=== PATIENT | male | born 1950 | race Caucasian/White ===

== ENCOUNTER 2022-01-10 15:12 | Emergency (ER) | payer MEDICARE, SELFPAY ==
[2022-01-10] VITALS (22 sets, daily range): BP systolic 59–120; BP diastolic 25–84; PULSE 89–154; RESP 18–98; TEMP 38.2–38.3; O2SAT 93–100; BMI 49.4
--- NOTE | 2022-01-10 16:28 | CRLHL7_ITS ---
For Patients: As a result of the Century Cures Act, medical imaging exams and procedure reports are released immediately into your electronic medical record. You may view this report before your referring provider. If you have questions, please contact your health care provider. INDICATION: Tachycardia. TECHNIQUE: Chest 1 views. COMPARISON: Chest x-ray from 10/01/2013. FINDINGS: Lungs: Clear lungs. No consolidation. Pleura: No pleural effusion or pneumothorax. Heart and Mediastinum: The cardiomediastinal silhouette is enlarged. The vessels are unremarkable. Bones: Unremarkable. IMPRESSION: No acute cardiopulmonary disease. Dictated by Burke Darling MD @ 01/10/2022 5:52:52 PM (Electronically Signed)
[2022-01-10 16:37] LABS: Lactate* 2.3 mmol/L (0.5-1.9)
[2022-01-10] MEDS: 0.9 % SODIUM CHLORIDE 1000 ml 1,000 ML IV ×2 (16:37→17:35)
[2022-01-10 16:44] LABS: Basophils Percent Auto 0.2 % (0.0-3.0); Eosinophils Percent Auto 0.5 % (0.0-7.0); Hematocrit 33.8 % (37.0-53.0); Hemoglobin* 11.5 gm/dL (13.5-17.5); Immature Granulocytes Abs Auto 0.02 K/uL (0.00-0.30); Mean Corpuscular HGB Conc 34 gm/dL (32-36); Mean Corpuscular Hemoglobin 29 pg (26-34); Mean Corpuscular Volume 86 fL (80-100); Monocytes Percent Auto 4.9 % (0.0-11.0); Neutrophils Percent Auto 88.2 % (42.0-72.0); Platelet Count* 162 K/uL (140-440); RDW Coefficient of Variation % 13.8 % (11.5-15.5); Red Blood Count 3.95 m/uL (4.30-5.90); White Blood Count* 11.01 K/uL (4.50-11.00)
--- NOTE | 2022-01-10 16:45 | ED.GENADULT ---
HPI - General Adult General Chief complaint: Fever Stated complaint: Arm Pain Trouble Moving Short of Breath Time Seen by Provider: 01/10/22 16:28 History of Present Illness HPI narrative: Pt is a 72 year old gentleman with a complex history who appears to live alone. 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 He describes a general sense of weakness and malaise. Its not clear that the pt has been taking his medications. Pt is unable to answer any further questions at this time and presents to the ED tachycardic and febrile but breathing room air and saturating at 96 percent. Pt describes no pain, rash, cough or abd pain. Unclear how long he has been feeling poorly but no history of falls. Related Data Home Medications Medication Instructions Recorded Confirmed amiloride 5 mg-hydrochlorothiazide tab 01/10/22 50 mg tablet atorvastatin 40 mg tablet mg 01/10/22 citalopram 10 mg tablet mg 01/10/22 lisinopril 10 mg tablet mg 01/10/22 lisinopril 5 mg tablet mg 01/10/22 metformin 1,000 mg tablet mg 01/10/22 metoprolol succinate 50 mg mg PO 01/10/22 tablet,extended release 24 hr peg 3350-electrolytes 236 ml 01/10/22 gram-22.74 gram-6.74 gram-5.86 gram solution (GaviLyte-G) tamsulosin 0.4 mg capsule mg PO 01/10/22 Allergies Allergy/AdvReac Type Severity Reaction Status Date / Time No Known Drug Allergies Allergy Verified 01/10/22 16:18 Review of Systems Status of ROS: Reports: unobtainable due to mental status [facility] Social History Smoking Status: Former smoker What tobacco products do you use: cigarettes Years smoked: 30 Smoking quit date/years: <= 15 years ago Do you use any of these nicotine containing products: None Second hand tobacco smoke exposure: No How often do you have a drink containing alcohol: 4 or more times a week How many standard drinks containing alcohol do you have on a typical day: 1 or 2 How often do you have six or more drinks on one occasion: Never AUDIT-C Alcohol total score: 4 Non-prescribed substance use: denies use service: No Exam Narrative: Exam Narrative: EXAM GENERAL: Patient appears morbidly obese and confused. EYES: No scleral icterus. ENT: Tympanic membranes and oropharynx normal. THYROID: no thyroid nodules or thyromegaly. LYMPH: No supraclavicular or cervical lymphadenopathy. SKIN: Visible skin seen during exam normal or with benign process only. EXT: No dependent lower extremity pedal edema. HEART: Regular rate and rhythm with no murmurs, rubs, or gallops. LUNGS: Clear to auscultation bilaterally with no crackles or wheezes. ABD: Obese soft with positive bowel sounds. PSYCH: Good eye contact, speech is not pressured. Neurological: Pt confused but shows no focal defects on exam Const: Vital Signs, click to edit/add: Vital Signs - 24 hr 01/10/22 16:19 01/10/22 16:38 01/10/22 16:19 Temperature 100.9 F H 100.9 F H Pulse Rate [Apical ] 144 H Pulse Rate [Right Pulse Oximeter] 154 H 154 H Respiratory Rate 26 H 36 H 36 H Blood Pressure [Le ft Arm] 100/83 Blood Pressure [Ri ght Upper Arm] 119/68 78/63 L Pulse Oximetry 96 96 96 Oxygen Delivery Me thod Room Air Room Air Room Air Oxygen Flow Rate 01/10/22 16:29 01/10/22 16:49 01/10/22 16:54 Temperature Pulse Rate [Apical ] Pulse Rate [Right Pulse Oximeter] 147 H 142 H 142 H Respiratory Rate Blood Pressure [Le ft Arm] Blood Pressure [Ri ght Upper Arm] 100/83 79/64 L 92/73 Pulse Oximetry Oxygen Delivery Me thod Oxygen Flow Rate 01/10/22 16:45 01/10/22 18:49 01/10/22 17:14 Temperature 100.7 F H Pulse Rate [Apical ] Pulse Rate [Right Pulse Oximeter] 142 H Respiratory Rate 36 H 36 H Blood Pressure [Le ft Arm] Blood Pressure [Ri ght Upper Arm] 110/61 Pulse Oximetry 100 Oxygen Delivery Me thod Nasal Cannula Nasal Cannula Oxygen Flow Rate 2 Course Course Hospital Course: Pt seen and EKG shows RBBB with tachycardia. NS bolus begun. CBC, Lactate, Amylase, UA, CMP, ETOH Chest X ray ordered Tylenol 1000 mg given. I am concerned about sepsis. Once blood cultures collected, Zosyn and Vancomycin ordered. Reevaluation(s) Reevaluation #1: Pt has had a complex course. Pt arrives tachycardic and febrile as well as semiobtunded. Labs including cultures collected. Sepsis suspected. Aggressive hydration begun. Vanc and Zosyn given. 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 BP borderline. Pt on 2 liters Oxygen. Cardiology recommended Adenosine followed by Cardizem if not improved Pt did not have any change with 6, 12, 12 of Adenosine. Cardizem also not helpful. Pt became hypotensive. Cardiology recommended cardioversion in this case. Pt shocked after versed and fentanyl at 150 synchronized with no effect. Shortly thereafter shocked same with conversion to sinus rhythm. BP improved. Delay on helicopter. Pt transferred to [facility]. Labs reviewed. Chest xray portable pending. Time: 19:16 Consultations Consultation #1: Cardiology consult with EKG overread requested. Cardiology agreed difficult to tell what rhythm is. Likely AV Node Re-entrant tachycardia. Recommended Adenosine. 6, 12, 12 unsuccessful of any meaningful change in rate or rhythm. Cards then recommended Cardizem drip which is now started. IV hydration and broad spectrum antibiotics running. Time: 17:08 Vital Signs Vital signs: Initial Vital Signs Temperature 100.9 F H 01/10/22 16:19 Temperature Source Temporal Artery Scan 01/10/22 16:19 Pulse Rate 154 H 01/10/22 16:19 Respiratory Rate 26 H 01/10/22 16:19 Respiratory Effort Short of Breath 01/10/22 16:19 Respiratory Depth Deep 01/10/22 16:19 Blood Pressure 119/68 01/10/22 16:19 Blood Pressure Mean 85 01/10/22 16:19 Blood Pressure Position Sitting 01/10/22 16:19 Pulse Oximetry 96 01/10/22 16:19 Oxygen Delivery Method 01/10/22 16:19 Vital Signs Temperature 100.9 F H 01/10/22 16:19 Pulse Rate 154 H 01/10/22 16:19 Respiratory Rate 26 H 01/10/22 16:19 Blood Pressure 119/68 01/10/22 16:19 Pulse Oximetry 96 01/10/22 16:19 Oxygen Delivery Method 01/10/22 16:19 Temperature 100.7 F H 01/10/22 18:49 Pulse Rate 142 H 01/10/22 17:14 Respiratory Rate 36 H 01/10/22 17:14 Blood Pressure 110/61 01/10/22 17:14 Pulse Oximetry 100 01/10/22 17:14 Oxygen Delivery Method 01/10/22 17:14 Oxygen Flow Rate 2 01/10/22 16:45 Medical Decision Making MDM Narrative Medical decision making narrative: Pt has had a complex course. Pt arrives tachycardic and febrile as well as semiobtunded. Labs including cultures collected. Sepsis suspected. Aggressive hydration begun. Vanc and Zosyn given. 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 BP borderline. Pt on 2 liters Oxygen. Cardiology recommended Adenosine followed by Cardizem if not improved Pt did not have any change with 6, 12, 12 of Adenosine. Cardizem also not helpful. Pt became hypotensive. Cardiology recommended cardioversion in this case. Pt shocked after versed and fentanyl at 150 synchronized with no effect. Shortly thereafter shocked same with conversion to sinus rhythm. BP improved. Delay on helicopter. Pt transferred to [facility]. Labs reviewed. Chest xray portable pending. Differential Diagnosis Differential Diagnosis: Sepsis, Primary Arythmia, [place], Pneumonia, UTI, PE Lab Data Labs: Lab Results 01/10/22 01/10/22 01/10/22 Range/Units 16:30 16:30 16:30 WBC 11.01 H (4.50-11.00) K/uL RBC 3.95 L (4.30-5.90) m/uL Hgb 11.5 L (13.5-17.5) gm/dL Hct 33.8 L (37.0-53.0) % MCV 86 (80-100) fL MCH 29 (26-34) pg MCHC 34 (32-36) gm/dL RDW Coeff of Daniel 13.8 (11.5-15.5) % Plt Count 162 (140-440) K/uL Neut % (Auto) 88.2 H (42.0-72.0) % Lymph % (Auto) 6.0 L (20-44) % [place] % (Auto) 4.9 (0.0-11.0) % Eos % (Auto) 0.5 (0.0-7.0) % Baso % (Auto) 0.2 (0.0-3.0) % Neut # (Auto) 9.70 H (1.7-7.0) K/uL Lymph # (Auto) 0.70 L (0.90-2.90) K/uL [place] # (Auto) 0.50 (0.00-0.90) K/UL Eos # (Auto) 0.10 (0.00-0.50) K/uL Baso # (Auto) 0.00 (0.00-0.30) K/uL Abs Immat Gran (auto) 0.02 (0.00-0.30) K/uL D-Dimer Quant (PE/DVT) 1.31 H (0.00-0.50) ug/ml Sodium 137 (135-149) mmol/L Potassium 3.4 L (3.6-5.1) mmol/L Chloride 100 (96-114) mmol/L Carbon Dioxide 27 (20-32) mmol/L BUN 23 (7-30) mg/dL Creatinine 0.9 (0.5-1.5) mg/dL Estimated Creat Clear 64.60 Estimated GFR 91 ml/min Glucose 202 H (60-115) mg/dL Lactate (0.5-1.9) mmol/L Calcium 9.5 (8.4-10.6) mg/dL Magnesium 1.4 L (1.5-2.6) mg/dL Total Bilirubin 0.5 (0.1-1.5) mg/dL AST 24 (12-35) U/L ALT 17 (4-50) U/L Alkaline Phosphatase 95 (40-150) U/L Troponin I 0.03 (0.01-0.04) ng/mL Total Protein 7.3 (6.0-8.3) g/dL Albumin 4.4 (3.3-5.0) g/dL Amylase 82 (18-89) U/L Urine Color (Yellow) Urine Appearance (Clear) Urine pH (5.0-8.5) Ur Specific [place] (1.000-1.030) Urine Protein (Negative) Urine Glucose (UA) (Negative) Urine Ketones (Negative) Urine Blood (Negative) Urine Nitrite (Negative) Urine Bilirubin (Negative) Urine Urobilinogen (0.2-1.0) Ur Leukocyte Esterase (Negative) Urine RBC (0-2) Urine WBC (0-5) Ur Squamous Epith Cells (None-Few) Urine Bacteria (None) Fine Granular Casts (None) SARS-CoV-2 (PCR) (Negative) Influenza Type A (PCR) (Negative) Influenza Type B (PCR) (Negative) RSV (PCR) (Negative) 01/10/22 01/10/22 01/10/22 Range/Units 16:30 17:14 18:30 WBC (4.50-11.00) K/uL RBC (4.30-5.90) m/uL Hgb (13.5-17.5) gm/dL Hct (37.0-53.0) % MCV (80-100) fL MCH (26-34) pg MCHC (32-36) gm/dL RDW Coeff of Daniel (11.5-15.5) % Plt Count (140-440) K/uL Neut % (Auto) (42.0-72.0) % Lymph % (Auto) (20-44) % [place] % (Auto) (0.0-11.0) % Eos % (Auto) (0.0-7.0) % Baso % (Auto) (0.0-3.0) % Neut # (Auto) (1.7-7.0) K/uL Lymph # (Auto) (0.90-2.90) K/uL [place] # (Auto) (0.00-0.90) K/UL Eos # (Auto) (0.00-0.50) K/uL Baso # (Auto) (0.00-0.30) K/uL Abs Immat Gran (auto) (0.00-0.30) K/uL D-Dimer Quant (PE/DVT) (0.00-0.50) ug/ml Sodium (135-149) mmol/L Potassium (3.6-5.1) mmol/L Chloride (96-114) mmol/L Carbon Dioxide (20-32) mmol/L BUN (7-30) mg/dL Creatinine (0.5-1.5) mg/dL Estimated Creat Clear Estimated GFR ml/min Glucose (60-115) mg/dL Lactate 2.3 H (0.5-1.9) mmol/L Calcium (8.4-10.6) mg/dL Magnesium (1.5-2.6) mg/dL Total Bilirubin (0.1-1.5) mg/dL AST (12-35) U/L ALT (4-50) U/L Alkaline Phosphatase (40-150) U/L Troponin I (0.01-0.04) ng/mL Total Protein (6.0-8.3) g/dL Albumin (3.3-5.0) g/dL Amylase (18-89) U/L Urine Color Yellow (Yellow) Urine Appearance Clear (Clear) Urine pH 7.5 (5.0-8.5) Ur Specific [place] 1.020 (1.000-1.030) Urine Protein 2+ A (Negative) Urine Glucose (UA) Negative (Negative) Urine Ketones Negative (Negative) Urine Blood 2+ A (Negative) Urine Nitrite Positive A (Negative) Urine Bilirubin Negative (Negative) Urine Urobilinogen 0.2 (0.2-1.0) Ur Leukocyte Esterase 2+ A (Negative) Urine RBC 2-5 A (0-2) Urine WBC 25-50 A (0-5) Ur Squamous Epith Cells Few (None-Few) Urine Bacteria None (None) Fine Granular Casts Few A (None) SARS-CoV-2 (PCR) Negative SARS-CoV-2 (Negative) Influenza Type A (PCR) Negative PCR FLU A (Negative) Influenza Type B (PCR) Negative PCR FLU B (Negative) RSV (PCR) Negative PCR RSV (Negative) Critical Care Time Critical Care Time Critical Care Time: Yes Attestation: The patient required my highest level preparedness to intervene emergently and I personally spent this critical care time directly and personally managing the patient. This critical care time included: Obtaining a history; Examining the patient; Pulse oximetry; Ordering and reviewing of studies; Arranging urgent treatment with development of a management plan; Evaluation of patients response to treatment; Frequent reassessment discussions with other providers. This critical care time was performed to assess and manage the high probability of imminent life-threatening deterioration that could result in multiorgan failure. It was exclusive of separate billable procedures and treating other patients and teaching time. Total Critical Care Time in Minutes: 90 Discharge Plan Discharge Clinical Impression: Sepsis Patient Disposition: Xfer Other Discharge Location: [facility] Hospital Condition: Improved Activity Level: Other Discharge Diet: Other Prescriptions: No Action atorvastatin 40 mg tablet Label Comments: TAKE ONE TABLET BY MOUTH ONE TIME DAILY amiloride-hydrochlorothiazide 5-50 mg tablet Label Comments: TAKE ONE TABLET BY MOUTH ONE TIME DAILY metoprolol succinate 50 mg tablet extended release 24 hr PO Label Comments: TAKE ONE TABLET BY MOUTH ONE TIME DAILY citalopram 10 mg tablet Label Comments: TAKE ONE TABLET BY MOUTH EVERY DAY IN THE MORNING. tamsulosin 0.4 mg capsule PO Label Comments: TAKE ONE CAPSULE BY MOUTH DAILY AFTER A MEAL metformin 1,000 mg tablet Label Comments: TAKE ONE TABLET BY MOUTH TWICE DAILY WITH MEALS lisinopril 10 mg tablet Label Comments: TAKE ONE TABLET BY MOUTH ONE TIME DAILY lisinopril 5 mg tablet Label Comments: TAKE ONE TABLET BY MOUTH ONE TIME DAILY peg 3350-electrolytes [GaviLyte-G] 236-22.74-6.74 -5.86 gram recon soln Label Comments: Drink 3 liters the day before colonoscopy and drink 1 liter 6 hours before colonoscopy Follow Up/Referrals: Jose Linares MD [Primary Care Provider] - Stand Alone Forms: [facility] Info Instructions
[2022-01-10] MEDS: ADENOSINE 6 MG/2ML INJ 12 MG IVP ×2 (16:48→17:50)
[2022-01-10 16:50] LABS: Slide Review Reflex No
[2022-01-10 16:58] LABS: Albumin* 4.4 g/dL (3.3-5.0); Chloride* 100 mmol/L (96-114); Potassium* 3.4 mmol/L (3.6-5.1); Sodium* 137 mmol/L (135-149)
[2022-01-10 17:00] LABS: Amylase* 82 U/L (18-89)
[2022-01-10 17:01] LABS: Alanine Aminotransferase* 17 U/L (4-50); Alkaline Phosphatase* 95 U/L (40-150); Aspartate Amino Transferase* 24 U/L (12-35); Bilirubin Total* 0.5 mg/dL (0.1-1.5); Blood Urea Nitrogen* 23 mg/dL (7-30); Carbon Dioxide* 27 mmol/L (20-32); Creatinine* 0.9 mg/dL (0.5-1.5); Estimated Glomerular Filt Rate 91 ml/min; Glucose* 202 mg/dL (60-115); Total Protein* 7.3 g/dL (6.0-8.3)
[2022-01-10 17:02] LABS: Calcium* 9.5 mg/dL (8.4-10.6)
[2022-01-10 17:04] LABS: D Dimer Quantitative* 1.31 ug/ml (0.00-0.50)
[2022-01-10] MEDS: ACETAMINOPHEN 500 MG TABLET 1000 MG PO (17:05)
[2022-01-10] MEDS: PIPERACILLIN/TAZOBACTAM 3.375 GM in 0.9 % SODIUM CHLORIDE Mini-bag 100 ML IVPB (17:11)
[2022-01-10 17:12] LABS: Troponin I* 0.03 ng/mL (0.01-0.04)
--- NOTE | 2022-01-10 17:22 | ED.NURSE ---
DR ONEAL AWARE OF VS AND CRITICAL CONDITION. -POSSIBLE SEPSIS. DID HANG ZOSYN AND DR AWARE THAT 2ND SET OF BLOOD CULTURES NOT OBTAINED PER LAB. TO GO AHEAD AND START THE ANTIBIOTICS. 02 AT 2 L N/C. RR 36. Initialized on 01/10/22 17:16 - END OF NOTE
--- NOTE | 2022-01-10 17:26 | ED.NURSE ---
[facility] cardiology paged x2. EKG faxed to
--- NOTE | 2022-01-10 17:28 | ED.NURSE ---
dr gibbs was in and 12 lead was repeated. bp has improved. 114/60. hr 141.
[2022-01-10] MEDS: ADENOSINE 6 MG/2ML INJ IVP (17:46)
[2022-01-10] MEDS: dilTIAZem HCL 125 MG in 0.9 % SODIUM CHLORIDE 100 ml 100 ML 10 MG IVPB (17:54)
[2022-01-10 18:01] LABS: PCR FLU A Negative PCR FLU A (Negative); PCR FLU B Negative PCR FLU B (Negative); PCR RSV Negative PCR RSV (Negative)
[2022-01-10] MEDS: ONDANSETRON 2 MG/ML inj 4 MG IVP (18:04)
[2022-01-10 18:10] LABS: SARS PCR* Negative SARS-CoV-2 (Negative)
[2022-01-10] MEDS: MIDAZOLAM HCL 1 MG/ML inj 4 MG IVP (18:14)
[2022-01-10] MEDS: fentaNYL 100 MCG/2 ML inj IVP (18:15)
[2022-01-10 18:28] LABS: Magnesium* 1.4 mg/dL (1.5-2.6)
--- NOTE | 2022-01-10 18:30 | ED.NURSE ---
synchonized cardioversion at 1816 150 j -not much change. did repeat at 1818 and converted to 98-sinus tachy. diltiazem drip was restarted at 15 mg/hr. will be transferred at [facility] via [facility]. did not remember the shock. is breathing much easier. does have oxy mask on. rt lachelle had been constantly at bs. had tried c pap and bi pap. was not able to tolerate. adenosine did not sustain the lower heart rate.
--- NOTE | 2022-01-10 18:43 | ED.NURSE ---
is on 02 per oxi mask at 8 l/min. has #18 torres draining straw colored cloudy urine. did send ua to lab. is talkig better and son at bs. is alert and oriented. will go to [facility] via [facility].
[2022-01-10] MEDS: 0.9 % SODIUM CHLORIDE 1000 ml 1,000 ML 100 ML IV (18:47)
[2022-01-10 18:53] LABS: Appearance Urine Clear (Clear); Bilirubin Urine Negative (Negative); Blood Urine 2+ (Negative); Color Urine Yellow (Yellow); Glucose Urine Negative (Negative); Ketones Urine Negative (Negative); Leukocyte Esterase Urine 2+ (Negative); Nitrite Urine Positive (Negative); Protein Urine 2+ (Negative); Urobilinogen Urine 0.2 (0.2-1.0); pH Urine 7.5 (5.0-8.5)
[2022-01-10 19:08] LABS: Fine Granular Casts Urine Few; Squamous Epithelial Cell Urine Few (None-Few); WBC Urine 25-50 (0-5)
--- NOTE | 2022-01-10 19:16 | RESP.RT ---
With pt, unstable, PT Hr in upper 130's Respiratory distress Pt given adenosine and cardioverted x2. Pt HR converted into 90's with corresponding Respiratory improvement. RR 16 and easy. SPO2 100%, Pt using oxymask at 8L.
--- NOTE | 2022-01-10 19:38 | ED.NURSE ---
report was called to dimitris rutledge at [facility].
--- NOTE | 2022-01-11 02:47 | ED.NURSE ---
call from [facility] to clarify antibiotics admin in er
== END 2022-01-10 19:15 | disposition other institution (70) ==
PROVIDERS: Emergency Provider Internal Medicine; PCP Family Medicine
DX: A41.9 Sepsis, unspecified organism (principal)
CPT/HCPCS: 36415; 71045; 80053; 81001; 82150; 83605; 83735; 84484; 85025; 85379; 87040; 87086; 87502; 87634; 87635; 92960; 93005; 96365; 96366; 96375; 96376; 99284; 99291; 99292; A9270; J0153; J2250; J2405; J2543; J3010; J3370; J3490; J7030; J7120

== ENCOUNTER 2022-01-10 18:51 | Outpatient (CLI) | payer MEDICARE, SELFPAY ==
--- OUTSIDE RECORDS SUMMARY | 2022-02-02 22:08 | XMS_ITS | Clinical Summary ---
:1950 Author Organization [facility] [place] [address] Care Team Providers Name Role Phone Jose Linares MD Primary Care Provider [phone] Allergies Active Allergy Reactions Severity Noted [...] 20 sleep apnea) home use at pressure: [id number] , Water chamber x 1 q 6 [...] Encounters Date Type Specialty Care Team Description 01/31/2022 Telephone Rayshawn Aden MD Pro cedure 01/30/2022 Orders Only <No scans attac hed> 01/29/2022 Orders Only Scanner <No scans attac hed> 01/23/2022 Travel 01/23/2022 Nurse Triage Votel, Bib Hammer Breathing 01/18/2022 Telephone Darrell Temple Resul ts 01/18/2022 Telephone Cardiology, Anw Referral 01/17/2022 Office Visit Votel, Dulce Hammer F/U (MD Nelsy transferred fro m [place] [facility], 01/10/22, UTI, i rregular heartbeat, weak ness); Immunization/In jection 01/16/2022 Office Visit Nora Xie AuD Hear ing Problem (Hearing test and hearin g aid check/) 01/16/2022 Office Visit Mihaela Randall, Ear P pedrito (Ear cleaning) PA 01/16/2022 Travel 01/13/2022 Refill VotelJose Refil l Request MD (Amiloride-hydr ochlorothiaz coleen (5-50 Mg)) 01/10/2022 Orders Only Scanner <No scans attac hed> 12/20/2021 Telephone VotelJose Refer ral (ENT ) 11/07/2021 Refill VotelJose Refil l Request MD (aMILoride-hydr ochlorothiaz coleen, 5-50 mg, ( MODURETIC) [...] drinks on one Never 07/19/2018 occasion? Comment: ankur 07/20/2021 Sex Assigned at Date Recorded Not [...] Encounters Date Type Specialty Care Team Description 02/17/2022 Office Visit Librado Jacques, AuD [address] [place], [place] [phone] (Wo rk) 03/13/2022 Office Visit Logan Cortez MD [address] [place], [place] [address] (Wo rk) 04/05/2022 Office Visit Leroy Banuelos MD [address] [id number] [place] [address] (Wo rk) Health Maintenance Due Date Last [...] 08/23/2017, 01/28, 07/27/2006 COVID-19 vaccine series Completed 01/19/2022, 08/26/2021, 02/20/2021, Additional history exists Medical Devices Implanted Type Area Evp Sales Device Shelf Expiration Model / Identifier Date Serial / Lot Amplatz Ureteral Stent Set [id number]-[id number] / Implanted: Qty: 1 on 06/02/[address] [facility] / Description: AMPLATZ URETERAL STENT SET Procedures Procedure Name Priority Date/Time Associated Diagnosis Comme nts ECHO COMPLETE WO Routine 01/30/2022 4:39 Aortic stenosis Resul ts for this CONTRAST PM CDT procedure are i n the results section. SCAN-CT INTERPRETATION 01/29/2022 12:00 AM CDT RED CELL MORPHOLOGY Routine 01/17/2022 3:28 UTI [...] results section. from Last 3 Months Results ECHO COMPLETE WO CONTRAST (01/30/2022 4:39 PM CDT) P athologist Signature AORTIC VALVE 35 mmHg MEAN PG EJECTION 68 % FRACTION LVEDD 4.1 cm EJECTION 70 - 75% FRACTION Anatomical Region Laterality Modality HEART Ultrasound Specimen (Source) Anatomical Collection Method Collection Time Re ceived Time Location / / Volume Laterality 01/30/2022 4:03 PM CDT Narrative 01/30/2022 5:09 PM CDT ECHOCARDIOGRAM NICKY TRUJILLO ?Accessio n#: ?? [id number] : ?1950 72 years Study Date: ?? 01/30/2022 4:03:38 PM Gender: M ? BP: ? 115/61 mmHg Height: 173.00 cm ? BSA: ?2.47 m? ?? Weight: 141.00 kg ? Tech: ? MJW ?R emigdio PETERSEN: CRISTY PENA [facility] [place] Location: Mobile-OP Procedure: 2D, Color Doppler and Spectra l Doppler. Indication for study: AO Stenosis Cardiac Rhythm: Normal sinus.Study quali ty: Technically limited. Imaging limitations: This study was subj ect to imaging limitations due to body habitus. Final Impressions: 1. Technically limited exam. 2. Normal LV size, moderately increased wall thickness, normal global systolic function with an estimated EF of 70 - 75%. 3. There is SANDRA with resting LVOT PG of 29 mmHg, increased to 86 mmHg with Valsalva. Findings suggestive of HOCM. 4. Right ventricular cavity size is nor mal, global systolic RV function is normal. 5. Severely enlarged left atrium. 6. The aortic valve is calcified, mild- moderate stenosis and moderate regurgitation. The aortic valve peak velocity is 3.6 m/s, the peak gradient is 53 mmHg, and the mean gradient is 35 mmHg. The aorti c valve area is 1.79 cm? ?? with a dimensionless index of 0.45. The stroke volume index is 59.8 ml/m? ??. 7. The mitral valve is sclerotic. Mean gradient 5.3 mmHg at HR 64 bpm. 8. Based on the echo findings, consider cardiac MRI and Cardiology Consult. Chamber Sizes and Function Normal left ventricular size, moderately increased wall thickness, normal global systolic function with an estimated EF of 70 - 75%. No definite resting regional wall motion abnormality seen. Left atria l size is severely enlarged. Right ventr icular cavity size is normal, global systolic RV function is normal. RV wall thickness is normal. The right atrium is moderately enlarged. Right atrial volume ind ex is 35 ml/m? ??. Right atrial area is 25 cm? ??. The pulmonary artery is of normal size and origin. The sinus of Valsalva is normal for age/sex/bsa. The ascending aorta is normal sized. Valves, RV Pressures and Diastolic Funct ion The aortic valve is calcified, mild sten osis and moderate regurgitation. The mitral valve is sclerotic, trace mitral regurgitation. Moderate mitral annular calcification is present. Spectral Doppler angel ws Grade 1 pattern of LV diastolic filli ng. The tricuspid valve is normal in structure. Tricuspid regurgitation is regurgitation is not evident. The pulmonic valve is normal. No pulmonary regurgitation. Masses, Effusion, Shunts There is no pericardial effusion. The in ferior vena cava is not well visualized, respiratory size variation not well visualized. Interatrial septum is not well visualized. MEASUREMENTS AND CALCULATIONS 2-D Measurements and LV Function: LVID (d) 4.1 cm LV FS% (2D) ?? 45 % LVID (s) 2.3 cm LVOT diameter 2.3 cm IVS (d) ??1.6 cm HR ?66 bpm LVPW (d) 1.4 cm LA Vol index ??53 ml/m2 Ao Sinus 4.0 cm RA Vol index ??35 ml/m2 Asc Ao ?? 3.7 cm RA area ? 25 cm? ?? LA ? 4.8 cm RV Max 4C (d) 4.3 cm Diastology: Mitral ?Tissue Doppler ?Pulmonary veins E Peak 1.2 m/s ??e', Septum ? 0.05 m /s Pulm s ?43.4 cm/s A Peak 1.8 m/s ??e', Lateral ?0.04 m /s Pulm d ?31.5 cm/s E/A ?0.7 ?E/e' Average ?? 25. 65 ?Pulm s/d ratio ??1.38 DT ? 425 msec IVRT ?? 74 msec Aortic Valve: Vmax ? 3.6 m/s ??INDIGO (V) ?? 1.68 cm? ?? VTI ?0.82 m ?? INDIGO (I) ?? 1.79 cm? ?? LVOT V max 1.5 m/s ??Max PG ?53 mmHg LVOT VTI ?? 0.37 m ?? Mean PG ?? 35 mmHg SV ? 148 ml ?? Dim Index 0.45 SV index ?? 60 ml/m? ?? CO ?9.7 l/min ?CI ?3.9 l/min/m? ?? Mitral Valve: MVA ? 1.8 cm? ?? MV P 1/2 ??123 msec MV Mean G 5 mmHg MV VTI ?0.56 m Tricuspid Valve and estimated PA pressur es: TAPSE 3.2 cm . This study was [facility] by [facility]. CC: Med/Surg - IP [facility] [place]. ??Final ?? Procedure Note Mykel Hernandez MD - 01/30/2022For matting of this note might be different from the original. ECHOCARDIOGRAM NICKY TRUJILLO : 1950 72 years Study Date: 2021 4:03:38 PM Gender: M BP: 115/61 mmHg Height: 173.00 cm BSA: 2.47 m? ?? Weight: 141.00 kg Tech: JANES Referring MD: CRISTY PENA Site: [facility] Reading Location: Mobile-[facility] Procedure: 2D, Color Doppler and Spectra l Doppler. Indication for study: AO Stenosis Cardiac Rhythm: Normal sinus.Study quali ty: Technically limited. Imaging limitations: This study was subj ect to imaging limitations due to body habitus. Final Impressions: 1. Technically limited exam. 2. Normal LV size, moderately increased wall thickness, normal global systolic function with an estimated EF of 70 - 75%. 3. There is SANDRA with resting LVOT PG of 29 mmHg, increased to 86 mmHg with Valsalva. Findings suggestive of HOCM. 4. Right ventricular cavity size is nor mal, global systolic RV function is normal. 5. Severely enlarged left atrium. 6. The aortic valve is calcified, mild- moderate stenosis and moderate regurgitation. The aortic valve peak velocity is 3.6 m/s, the peak gradient is 53 mmHg, and the mean gradient is 35 mmHg. The aortic valve area is 1.79 cm? ?? with a dimensionless index of 0.45. The stroke volume index is 59.8 ml/m? ??. 7. The mitral valve is sclerotic. Mean gradient 5.3 mmHg at HR 64 bpm. 8. Based on the echo findings, consider cardiac MRI and Cardiology Consult. Chamber Sizes and Function Normal left ventricular size, moderately increased wall thickness, normal global systolic function with an estimated EF of 70 - 75%. No definite resting regional wall motion abnormality seen. Left atrial size is severely enlarged. Right ventricular cav ity size is normal, global systolic RV function is normal. RV wall thickness is normal. The right atrium is moderately enlarged. Right atrial volume index is 35 ml/m? ??. Right atrial area is 25 cm? ??. The pulmonary artery is of normal size and origin. The sinus of Valsalva is normal for age/sex/bsa. The ascending aorta is normal sized. Valves, RV Pressures and Diastolic Funct ion The aortic valve is calcified, mild sten osis and moderate regurgitation. The mitral valve is sclerotic, trace mitral regurgitation. Moderate mitral annular calcification is present. Spectral Doppler shows Grade 1 pattern of LV diastolic filling. The tricuspid v alve is normal in structure. Tricuspid regurgitation is regurgitation is not evident. The pulmonic valve is normal. No pulmonary regurgitation. Masses, Effusion, Shunts There is no pericardial effusion. The in ferior vena cava is not well visualized, respiratory size variation not well visualized. Interatrial septum is not well visualized. MEASUREMENTS AND CALCULATIONS 2-D Measurements and LV Function: LVID (d) 4.1 cm LV FS% (2D) 45 % LVID (s) 2.3 cm LVOT diameter 2.3 cm IVS (d) 1.6 cm HR 66 bpm LVPW (d) 1.4 cm LA Vol index 53 ml/m2 Ao Sinus 4.0 cm RA Vol index 35 ml/m2 Asc Ao 3.7 cm RA area 25 cm? ?? LA 4.8 cm RV Max 4C (d) 4.3 cm Diastology: Mitral Tissue Doppler Pulmonary veins E Peak 1.2 m/s e', Septum 0.05 m/s Pulm s 43.4 cm/s A Peak 1.8 m/s e', Lateral 0.04 m/s Pulm d 31.5 cm/s E/A 0.7 E/e' Average 25.65 Pulm s/d rati o 1.38 DT 425 msec IVRT 74 msec Aortic Valve: Vmax 3.6 m/s INDIGO (V) 1.68 cm? ?? VTI 0.82 m INDIGO (I) 1.79 cm? ?? LVOT V max 1.5 m/s Max PG 53 mmHg LVOT VTI 0.37 m Mean PG 35 mmHg SV 148 ml Dim Index 0.45 SV index 60 ml/m? ?? CO 9.7 l/min CI 3.9 l/min/m? ?? Mitral Valve: MVA 1.8 cm? ?? MV P 1/2 123 msec MV Mean G 5 mmHg MV VTI 0.56 m Tricuspid Valve and estimated PA pressur es: TAPSE 3.2 cm . This study was interpreted by an [facility] red[facility] facility. CC: Med/Surg - IP [facility]. Final Cristy Pena MD ECHO ORD SCAN-CT INTERPRETATION (01/29/2022 12:00 AM CDT) Narrative This result has an attachment that is no t available. Scanner OTHER (ABNORMAL) CBC WITH AUTO DIFFERENTIAL (01/17/2022 3:28 PM CDT) [facility] Method Time Signature WHITE BLOOD 9.7 4.5 - 11.0 01/17/2022 [facility] COUNT thou/cu mm 4:01 PM [facility] RED BLOOD COUNT 3.67 (L) 4.30 - 01/17/2022 [facility] 5.90 4:01 PM [facility] mil/cu mm [facility] HEMOGLOBIN 10.7 (L) 13.5 - 01/17/2022 [facility] 17.5 g/dL 4:01 PM [facility] HEMATOCRIT 30.6 (L) 37.0 - 01/17/2022 [facility] 53.0 % 4:01 PM [facility] MCV 83 80 - 100 01/17/2022 [facility] fL 4:01 PM [facility] MCH 29.2 26.0 - 01/17/2022 [facility] 34.0 pg 4:01 PM [facility] MCHC 35.0 32.0 - 01/17/2022 [facility] 36.0 g/dL 4:01 PM [facility] RDW 14.4 11.5 - 01/17/2022 [facility] 15.5 % 4:01 PM [facility] PLATELET COUNT 202 140 - 440 01/17/2022 [facility] thou/cu mm 4:01 PM CDT [facility] MPV 10.5 6.5 - 11.0 01/17/2022 [facility] fL 4:01 PM CDT [facility] Specimen Anatomical Collection Method / Collection Time Recei vanessa Time (Source) Location / Volume Laterality Blood BLOOD SPECIMEN / Venipuncture / 01/17/2022 3:28 2021 3:29 Unknown Unknown PM CDT PM CDT Jose Linares MD HEMATOLOGY Performing Organization Address City/[facility] Phon e Number [facility] [address] [place] [address] (ABNORMAL) RED CELL MORPHOLOGY (01/17/2022 3:28 PM CDT) [employer] Method Time Signature ELLIPTOCYTES Few 01/17/2022 [facility] 4:01 PM CDT [facility] RBC COMMENT Present RBC 01/17/2022 [facility] (A) morphology 4:01 PM CDT [facility] normal, RBC morphology within normal limits for newborns. LARGE PLATELETS Present 01/17/2022 [facility] 4:01 PM CDT [facility] Specimen Anatomical Collection Method / Collection Time Recei vanessa Time (Source) Location / Volume Laterality Blood BLOOD SPECIMEN / Venipuncture / 01/17/2022 3:28 2021 3:29 Unknown Unknown PM CDT PM CDT Jose Linares MD HEMATOLOGY Performing Organization Address City/[facility] Code Phon e Number [facility] [address] [place] [address] PLATELET ESTIMATE (01/17/2022 3:28 PM CDT) [employer] Method Time Signature PLATELET Adequate Adequate, No 01/17/2022 [facility] ESTIMATE estimate 4:01 PM CDT [facility] Specimen Anatomical Collection Method / Collection Time Recei vanessa Time (Source) Location / Volume Laterality Blood BLOOD SPECIMEN / Venipuncture / 01/17/2022 3:28 2021 3:29 Unknown Unknown PM CDT PM CDT Jose Linares MD HEMATOLOGY Performing Organization Address City/State/ZIP Code Phon e Number [facility] [address] [place] [address] (ABNORMAL) MANUAL DIFFERENTIAL (01/17/2022 3:28 PM CDT) [facility] gist Method Time Signature % NEUTROPHILS 61.0 % 01/17/2022 [facility] 4:01 PM CDT [facility] % LYMPHOCYTES 26.0 % 01/17/2022 [facility] 4:01 PM CDT [facility] % MONOCYTES 9.0 % 01/17/2022 [facility] 4:01 PM CDT [facility] % EOSINOPHILS 4.0 % 01/17/2022 [facility] 4:01 PM CDT [facility] % BASOPHILS 0.0 % 01/17/2022 [facility] 4:01 PM CDT [facility] NEUTROPHILS 5.9 1.7 - 7.0 01/17/2022 [facility] ABSOLUTE thou/cu mm 4:01 PM CDT [facility] LYMPHOCYTES 2.5 0.9 - 2.9 01/17/2022 [facility] ABSOLUTE thou/cu mm 4:01 PM CDT [facility] MONOCYTES 0.9 (H) <0.9 01/17/2022 [facility] ABSOLUTE thou/cu mm 4:01 PM CDT [facility] EOSINOPHILS 0.4 <0.5 01/17/2022 [facility] ABSOLUTE thou/cu mm 4:01 PM CDT [facility] BASOPHILS 0.0 <0.3 01/17/2022 [facility] ABSOLUTE thou/cu mm 4:01 PM CDT [facility] Specimen Anatomical Collection Method / Collection Time Recei vanessa Time (Source) Location / Volume Laterality Blood BLOOD SPECIMEN / Venipuncture / 01/17/2022 3:28 2021 3:29 Unknown Unknown PM CDT PM CDT Jose Linares MD HEMATOLOGY Performing Organization Address City/State/ZIP Code Phon e Number [facility] [address] [place] [address] (ABNORMAL) MAGNESIUM (01/17/2022 3:28 PM CDT) athologist Signature MAGNESIUM 1.1 (LL) 1.6 - 2.6 01/18/2022 [facility] mg/dL 5:08 PM [facility] Specimen Anatomical Collection Method / Collection Time Recei vanessa Time (Source) Location / Volume Laterality Blood BLOOD SPECIMEN / Venipuncture / 01/17/2022 3:28 2021 3:29 Unknown Unknown PM CDT PM CDT Jose Linares MD CHEMISTRY Performing Organization Address City/State/ZIP Code Phon e Number [facility] INTERNAL ZIP [address] [place] [address] [facility] [address] (ABNORMAL) BASIC METABOLIC PANEL (01/17/2022 3:28 PM CDT) Analysis Performed At Patho logist Time Signature SODIUM 134 (L) 135 - 145 01/18/2022 [facility] mmol/L 4:47 PM [facility] POTASSIUM 3.6 3.5 - 5.0 01/18/2022 [facility] mmol/L 4:47 PM [facility] CHLORIDE 98 98 - 110 01/18/2022 [facility] mmol/L 4:47 PM [facility] CO2,TOTAL 26 21 - 31 01/18/2022 [facility] mmol/L 4:47 PM [facility] ANION GAP 10 5 - 18 01/18/2022 [facility] 4:47 PM [facility] GLUCOSE 94 65 - 100 01/18/2022 [facility] mg/dL 4:47 PM [facility] CALCIUM 9.6 8.5 - 10.5 01/18/2022 [facility] mg/dL 4:47 PM [facility] BUN 7 (L) 8 - 25 01/18/2022 [facility] mg/dL 4:47 PM [facility] CREATININE 0.88 0.72 - 01/18/2022 [facility] 1.25 mg/dL 4:47 PM [facility] BUN/CREAT RATIO 8 (L) 10 - 20 01/18/2022 [facility] L 4:47 PM [facility] eGFR >90 >90 01/18/2022 [facility] mL/min/1.7 4:47 PM [facility] 3m2 LABORATORY Comment: As of 2021, eGFR [...] Organization Address City/State/ZIP Code Phon e Number [facility] INTERNAL ZIP [address] [place] [address] [facility] [address] SCAN-RADIOLOGY REPORT (01/10/2022 [...] Group MEDICARE PART B MEDICARE PART B [id number] 2014-Presen ATTN: CLAIMS - HB USE ONLY HB ONLY t [address] [place] [address] MEDICARE PART A MEDICARE PART A [id number] 2014-Presen ATTN: CLAIMS - HB USE ONLY HB ONLY t [address] [place] [address] [employer]OSS MR BLUE CROSS [id number] 2018-Presen [id number] [place] [id number] Advance Directives Latest Code Status on File [...] 12:51 PM 04/15/2011 6:21 PM Care Teams Patient Svcs Mgr Relationship Specialty Start Date End Date Votel, Jose Bateman MD PCP - General Family Practice 08/17/11 [address] [place] [address]
== END 2022-01-10 18:52 | disposition home or self-care (01) ==
LOC: AMB 02-02 22:06
PROVIDERS: PCP Family Medicine; Visit Provider Student in an Organized Health Care Education/Training Program
DX: A41.9 Sepsis, unspecified organism (principal); I95.9 Hypotension, unspecified; R53.1 Weakness; R50.9 Fever, unspecified
CPT/HCPCS: A0425; A0434

== ENCOUNTER 2022-01-23 10:48 | Emergency (ER) | payer MEDICARE, SELFPAY ==
[2022-01-23 11:00] VITALS: BP 127/64; PULSE 79; RESP 24; TEMP 35.7; O2SAT 98; BMI 105.3
--- NOTE | 2022-01-23 11:50 | ED_ITS ---
HPI - Nausea/Vomiting/Diarrhea General Chief complaint: Nausea/Vomiting Stated complaint: Feels like throat is closing up Time Seen by Provider: 01/23/22 11:21 History of Present Illness HPI Narrative: 72-year-old man presenting with believe ex- to the emergency department with a sensation of wanting to gag. Is not actually having any difficulty swallowing. Says for a long time now will sometimes feel like the back of his throat is touching the front sometimes especially when he might lean forward. He has not had any sore throat. Seems to have gotten worse a little bit last night and then this morning just had the sensation of needing to gag. He is still feeling that way and did produce a couple times of clear liquid and this gagging effort. Is not having any difficulty breathing. Does have a history of sleep apnea and faithfully uses his CPAP. More recently suspected to have had GERD. Years ago prior to bariatric surgery he did take proton pump inhibitor. Has been restarted on that recently. He is on lot of pills at the moment partially due to recent diagnosis of sepsis. Has continued on antibiotics I believe currently Bactrim. He has not had a fever. Does not actually have difficulty swallowing. Related Data Home Medications Medication Instructions Recorded Confirmed amiloride 5 mg-hydrochlorothiazide tab PO DAILY 01/10/22 50 mg tablet atorvastatin 40 mg tablet 40 mg 01/10/22 citalopram 10 mg tablet 10 mg 01/10/22 lisinopril 10 mg tablet 10 mg 01/10/22 lisinopril 5 mg tablet mg 01/10/22 metformin 1,000 mg tablet 1,000 mg 01/10/22 metoprolol succinate 50 mg 50 mg PO 01/10/22 tablet,extended release 24 hr peg 3350-electrolytes 236 ml 01/10/22 gram-22.74 gram-6.74 gram-5.86 gram solution (GaviLyte-G) tamsulosin 0.4 mg capsule 0.4 mg PO 01/10/22 apixaban 5 mg tablet (Eliquis) 5 mg PO BID 01/23/22 01/23/22 cholecalciferol (vitamin D3) 25 1,000 unit PO DAILY 01/23/22 01/23/22 mcg (1,000 unit) tablet guaifenesin 600 mg tablet, 600 mg PO BID PRN 01/23/22 01/23/22 extended release 12 hr (Mucinex) magnesium oxide 400 mg (241.3 mg mg 01/23/22 magnesium) tablet pantoprazole 40 mg tablet,delayed mg PO 01/23/22 release Allergies Allergy/AdvReac Type Severity Reaction Status Date / Time No Known Drug Allergies Allergy Verified 01/10/22 16:18 Review of Systems Status of ROS: Reports: 6 or more systems reviewed and unremarkable except as noted in History and below PFSH PFS Social History Smoking Status: Former smoker What tobacco products do you use: cigarettes Years smoked: 30 Smoking quit date/years: <= 15 years ago Do you use any of these nicotine containing products: None Second hand tobacco smoke exposure: No How often do you have a drink containing alcohol: 4 or more times a week How many standard drinks containing alcohol do you have on a typical day: 1 or 2 How often do you have six or more drinks on one occasion: Never AUDIT-C Alcohol total score: 4 Non-prescribed substance use: denies use service: No Exam Narrative: Exam Narrative: Pleasant. NAD. Breathing easily but sounds congested. Congested breathing consistent with sleep apnea diagnosis. There is no stridor. Oropharynx is not erythematous. Uvula is boggy though and prominent. Lungs appear to be clear other than having some transmission of this upper airway congestion Cardiovascular with regular rate and rhythm. Intermittently clearing his throat. Const: Vital Signs, click to edit/add: Vital Signs - 24 hr 01/23/22 11:00 01/23/22 12:10 01/23/22 13:00 Temperature 96.3 F L Pulse Rate [Pulse Oximeter] 79 67 75 Respiratory Rate 24 18 Blood Pressure [Ri ght Upper Arm] 127/64 145/66 H 119/46 L Pulse Oximetry 98 97 95 Oxygen Delivery Me thod Room Air Room Air Nasal Cannula 01/23/22 12:30 01/23/22 12:10 Temperature Pulse Rate [Pulse Oximeter] 72 67 Respiratory Rate 23 16 Blood Pressure [Ri ght Upper Arm] 137/64 145/66 H Pulse Oximetry 97 97 Oxygen Delivery Me thod Room Air Room Air Documenting provider has reviewed patient's vital signs: yes Course Reevaluation(s) Reevaluation #1: Symptoms improved with benzocaine throat spray Consultations Consultation #1: I did reach out to our ENT provider on-call to arrange for follow-up. He also suspects uvular irritation contributing to this gagging. Vital Signs Vital signs: Initial Vital Signs Temperature 96.3 F L 01/23/22 11:00 Temperature Source Temporal Artery Scan 01/23/22 11:00 Pulse Rate 79 01/23/22 11:00 Respiratory Rate 24 01/23/22 11:00 Blood Pressure 127/64 01/23/22 11:00 Blood Pressure Mean 85 01/23/22 11:00 Blood Pressure Position Supine 01/23/22 11:00 Pulse Oximetry 98 01/23/22 11:00 Oxygen Delivery Method 01/23/22 11:00 Vital Signs Temperature 96.3 F L 01/23/22 11:00 Pulse Rate 79 01/23/22 11:00 Respiratory Rate 24 01/23/22 11:00 Blood Pressure 127/64 01/23/22 11:00 Pulse Oximetry 98 01/23/22 11:00 Oxygen Delivery Method 01/23/22 11:00 Temperature 96.3 F L 01/23/22 11:00 Pulse Rate 75 01/23/22 13:00 Respiratory Rate 23 01/23/22 12:30 Blood Pressure 119/46 L 01/23/22 13:00 Pulse Oximetry 95 01/23/22 13:00 Oxygen Delivery Method 01/23/22 13:00 MDM - Nausea/Vomiting/Diarrhea MDM Narrative Medical decision making narrative: Reason coughing may have exacerbated the situation. Medical Records Attestation: I reviewed the patient's medical records. ECG Data Attestation: I personally reviewed and interpreted this ECG as follows: (Sinus rhythm first-degree AV block right bundle-branch block rate of 70) Discharge Plan Discharge Clinical Impression: Uvular edema Patient Disposition: Home w/ Parent or Adult Condition: Improved Additional Instructions: Today I spoke with Dr. Pederson with ENT. He would like to see you in his office for consultation. Please call [phone] to schedule. In the meantime might try relief of this sensation by sucking on ice chips, anesthetic throat sprays or lozenges, menthol lozenges or menthol vapors. Stay well-hydrated. Prescriptions: No Action atorvastatin 40 mg tablet 40 mg Label Comments: TAKE ONE TABLET BY MOUTH ONE TIME DAILY amiloride-hydrochlorothiazide 5-50 mg tablet PO DAILY Label Comments: TAKE ONE TABLET BY MOUTH ONE TIME DAILY metoprolol succinate 50 mg tablet extended release 24 hr 50 mg PO Label Comments: TAKE ONE TABLET BY MOUTH ONE TIME DAILY citalopram 10 mg tablet 10 mg Label Comments: TAKE ONE TABLET BY MOUTH EVERY DAY IN THE MORNING. tamsulosin 0.4 mg capsule 0.4 mg PO Label Comments: TAKE ONE CAPSULE BY MOUTH DAILY AFTER A MEAL metformin 1,000 mg tablet 1,000 mg Label Comments: TAKE ONE TABLET BY MOUTH TWICE DAILY WITH MEALS lisinopril 10 mg tablet 10 mg Label Comments: TAKE ONE TABLET BY MOUTH ONE TIME DAILY lisinopril 5 mg tablet Label Comments: TAKE ONE TABLET BY MOUTH ONE TIME DAILY peg 3350-electrolytes [GaviLyte-G] 236-22.74-6.74 -5.86 gram recon soln Label Comments: Drink 3 liters the day before colonoscopy and drink 1 liter 6 hours before colonoscopy magnesium oxide 400 mg (241.3 mg magnesium) tablet Label Comments: Take 1 Tablet (400 mg) by mouth once daily. pantoprazole 40 mg tablet,delayed release (DR/EC) PO Label Comments: Take 1 Tablet (40 mg) by mouth once daily. cholecalciferol (vitamin D3) 25 mcg (1,000 unit) tablet 1,000 unit PO DAILY Eliquis 5 mg tablet 5 mg PO BID guaifenesin [Mucinex] 600 mg tablet extended release 12hr 600 mg PO BID PRN Follow Up/Referrals: Jose Linares MD [Primary Care Provider] - Stand Alone [facility] Info Instructions
[2022-01-23 12:10] VITALS: BP 145/66; PULSE 67; RESP 16; RESP 18; O2SAT 97
[2022-01-23 12:30] VITALS: BP 137/64; PULSE 72; RESP 23; O2SAT 97
[2022-01-23 13:00] VITALS: BP 119/46; PULSE 75; O2SAT 95
== END 2022-01-23 13:47 | disposition home or self-care (01) ==
PROVIDERS: Emergency Provider Family Medicine; PCP Family Medicine
DX: K13.79 Other lesions of oral mucosa (principal)
CPT/HCPCS: 99283; 99284

== ENCOUNTER 2022-01-29 10:16 | Inpatient (IN) | payer MEDICARE, SELFPAY ==
[2022-01-29] VITALS (8 sets, daily range): BP systolic 120–173; BP diastolic 56–78; PULSE 70–85; RESP 20–22; TEMP 36–37.1; O2SAT 94–97; BMI 47.7; BMI 47.2
--- NOTE | 2022-01-29 11:25 | CRLHL7_ITS ---
For Patients: As a result of the Century Cures Act, medical imaging exams and procedure reports are released immediately into your electronic medical record. You may view this report before your referring provider. If you have questions, please contact your health care provider. INDICATION: Difficulty swallowing. Gagging. Rule out abscess. TECHNIQUE: Volumetric helical scanning of the neck was performed with 150 cc of Isovue 370 contrast material IV. Coronal and sagittal reconstructions were obtained. COMPARISON: None. FINDINGS: No mass, lymphadenopathy or inflammatory process is identified. The hypopharyngeal/oropharyngeal airway appears to be narrowed, presumably due to palatine tonsil thickening. No abscess is evident. The larynx is unremarkable. The salivary and thyroid glands are within normal limits. No vascular abnormality is demonstrated in the neck. The visualized paranasal and mastoid sinuses are clear. The lung apices are essentially clear. No significant bony abnormality is demonstrated. An enhancing 1.9 x 1.4 x 1.3 cm aneurysm or meningiomas demonstrated in the left anterior suprasellar region. IMPRESSION: 1. Narrowed hypopharyngeal/oropharyngeal airway presumably due to palatine tonsil enlargement. Possible tonsillitis. No abscess evident. 2. 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 Please note that all CT scans at this facility use dose modulation, iterative reconstruction, and/or weight-based dosing when appropriate to reduce radiation dose to as low as reasonably achievable. Dictated by Rigoberto Elias MD @ 01/29/2022 1:47:13 PM (Electronically Signed)
--- NOTE | 2022-01-29 11:40 | ED.GENADULT ---
HPI - General Adult General Date Seen: 01/29/22 Chief complaint: Ear/Nose/Throat Problem Stated complaint: Gaging not eating or drinking Time Seen by Provider: 01/29/22 11:02 Source: patient History of Present Illness HPI narrative: Patient is a 72-year-old male who is here with his ex- for repeat evaluation of difficulty with drinking, dehydration, gagging sensation. He was here a few days ago for similar complaints, told that symptoms may be due to uvular swelling, and suggested to use something like benzocaine for symptoms. He has tried that but does not feel that it is helpful. In talking with him, he says that he is able to swallow, he is able to eat, food does go down okay, it seems as if he is really not eating because he does not have any appetite. In terms of drinking, he says that he is able to drink liquids, but says that he often has a sensation of needing to gag, and then liquids will come back up. He isn't drinking very much water as a result. His ex- says he is not really eating much of anything at all. He says he feels very weak in general, his ex- says he does not do much at all, sits in the chair most of the time even though she encourage is in to get up and walk laps in the basement apartment where he is staying at her home currently. Sometimes he gags to the point of vomiting up liquid. He was recently hospitalized at [facility] with a tachy arrhythmia as well as urosepsis. He was discharged home and has been staying with his ex- since then. He apparently had problems with constipation and then has been having frequent bowel movements which he describes as ?coffee-ground?. No Melena. He is not vomiting blood. He does take Eliquis. He has not had any throat pain. Related Data Home Medications Medication Instructions Recorded Confirmed amiloride 5 mg-hydrochlorothiazide 1 tab PO DAILY 01/10/22 01/29/22 50 mg tablet atorvastatin 40 mg tablet 40 mg PO DAILY 01/10/22 01/29/22 citalopram 10 mg tablet 10 mg PO DAILY 01/10/22 01/29/22 lisinopril 10 mg tablet 10 mg PO DAILY 01/10/22 01/29/22 metformin 1,000 mg tablet 1,000 mg PO BID 01/10/22 01/29/22 metoprolol succinate 50 mg 50 mg PO DAILY 01/10/22 01/29/22 tablet,extended release 24 hr tamsulosin 0.4 mg capsule 0.4 mg PO DAILY 01/10/22 01/29/22 apixaban 5 mg tablet (Eliquis) 5 mg PO BID 01/23/22 01/29/22 cholecalciferol (vitamin D3) 25 1,000 unit PO DAILY 01/23/22 01/29/22 mcg (1,000 unit) tablet guaifenesin 600 mg tablet, 600 mg PO BID PRN 01/23/22 01/29/22 extended release 12 hr (Mucinex) magnesium oxide 400 mg (241.3 mg 400 mg PO DAILY 01/23/22 01/29/22 magnesium) tablet pantoprazole 40 mg tablet,delayed 40 mg PO DAILY 01/23/22 01/29/22 release ascorbic acid (vitamin C) 500 mg 500 mg PO DAILY 01/29/22 01/29/22 chewable tablet (Acerola C) Allergies Allergy/AdvReac Type Severity Reaction Status Date / Time No Known Drug Allergies Allergy Verified 01/29/22 10:33 Review of Systems Status of ROS: Reports: 10 or more systems reviewed and unremarkable except as noted in History and below [facility] Medical History (Updated 01/29/22 @ 14:48 by Gina Carreon MD) Abnormal colonoscopy Aortic stenosis ASHD (arteriosclerotic heart disease) Benign non-nodular prostatic hyperplasia with lower urinary tract symptoms Diabetes mellitus type 2 in obese Hx of colonic polyps Hyperlipidemia Hypertension Kidney stones Malignant melanoma of right upper extremity Morbid obesity MRSA bacteremia Pituitary adenoma with extrasellar extension Postoperative hypotension Sleep apnea Steroid-induced hyperglycemia Surgical History (Updated 01/29/22 @ 14:48 by Gina Carreon MD) H/O hemorrhoidectomy H/O lithotripsy H/O nephrostomy H/O right hemicolectomy H/O umbilical hernia repair H/O vasectomy History of total right hip arthroplasty Hx of appendectomy Hx of colonoscopy S/P laparoscopic sleeve gastrectomy S/P skin biopsy Status post transsphenoidal pituitary resection Family History (Updated 01/29/22 @ 14:51 by Gina Carreon MD) Father Colon cancer Obesity Sister Diabetes Obesity Mother Heart disease High blood pressure Hyperlipidemia Obesity Stroke Social History Highest level of school completed/degree received: Associate degree: occupational, technical, vocational program Smoking Status: Former smoker What tobacco products do you use: cigarettes Years smoked: 30 Smoking quit date/years: >15 years ago Do you use any of these nicotine containing products: None Second hand tobacco smoke exposure: No How often do you have a drink containing alcohol: 2-4 times a month Alcohol type: beer How many standard drinks containing alcohol do you have on a typical day: 1 or 2 How often do you have six or more drinks on one occasion: Less than monthly AUDIT-C Alcohol total score: 3 Non-prescribed substance use: denies use Caffeine: Yes (3-4 daily) service: No Exam Narrative: Exam Narrative: Vital signs as noted above. In general, an alert, nontoxic elderly male. Breathing easily. Head: Normocephalic, atraumatic. Eyes: Pupils are equal reactive. Extraocular movements are full. Conjunctivae are normal. ENT: Mucous membranes are moist, lips are quite dry. Throat is normal, uvula looks entirely normal to me. I do not see any evidence of thrush, erythema, exudate or other edema, no obvious masses. Neck: Supple without obvious masses, does seem to have mobile node on the left. Heart: Regular rate and rhythm. Loud systolic murmur heard throughout the precordium. Lungs: Clear bilaterally. No increased work of breathing, crackles or wheezes. Abdomen: Soft and nontender. Obese. Significant abdominal bruit verses radiation of his cardiac murmur. Rectal exam: Light brown stool, heme-negative. Extremities: Well perfused. No edema. No calf tenderness. Pulses intact. Neurologic: Patient is alert and oriented to person and place. Speech is fluent. Face is symmetric. Moves all extremities equally. Affect: Normal. Skin: Warm and dry. Well perfused. Const: Vital Signs, click to edit/add: Vital Signs - 24 hr 01/29/22 10:33 01/29/22 13:00 Temperature 96.8 F L Pulse Rate [Pulse Oximeter] 85 Respiratory Rate 20 Blood Pressure [Ri ght Upper Arm] 173/64 H 139/66 Pulse Oximetry 97 Oxygen Delivery Me thod Room Air Documenting provider has reviewed patient's vital signs: yes Course Course Hospital Course: We will place an IV here, start with 500 mL of normal saline. Labs ordered. I am going to order a CT soft tissue neck just to make sure there is nothing structurally that is hampering his swallowing. I do not think this is likely a uvular problem based on my exam today as his uvula small and looks completely normal. It does not sound as if he has esophageal stricture based on what he is telling me, he is not having symptoms that sound as if food is getting hung up. It is possible that this is all failure to thrive. Discussed that if we do not find anything here, it may be that he just needs a higher level of care, and it sounds as if he is open to that. Reevaluation(s) Reevaluation #1: Continuation of ER course: Patient does note that Protonix was prescribed to him by his primary doctor for possible gastroesophageal reflux, which is certainly also a possibility. He took it for for 5 days, but then stopped it because he did not feel like it was helping. Labs here are notable for a white blood cell count of 4.26, down from 11 on January 10 which is last time we have labs for him. His hemoglobin is down to 9.4, from 11.5 a couple of weeks ago. He is Hemoccult negative, I do not think is likely losing this in his GI tract. It is possible some of this is dilutional, related to his recent hospital stay, but I also think clinically he seems to be volume depleted. Most notably, his sodium returned very low at 111, certainly this is a large contributor to his weakness on today's presentation. I did give him 3% saline upon seeing his sodium. His potassium is normal. BUN and creatinine are normal. LFTs were unremarkable aside from an AST of 55. TSH was normal, COVID was negative. Point of care troponin was also 0. He also had an EKG which by my review showed normal sinus rhythm, he does have a first-degree AV block, QT is normal. He has a right bundle branch block, does not have any other acute ST segment changes. I did do a CT scan of the soft tissues of the neck, just making sure that he does not have anything structurally to account for his swallowing symptoms. This is read by Radiology as follows:IMPRESSION: 1. Narrowed hypopharyngeal/oropharyngeal airway presumably due to palatine tonsil enlargement. Possible tonsillitis. No abscess evident. 2. 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 With regard to the palatine tonsil enlargement and possible tonsillitis, patient does not have any sore throat, elevated white blood cell count or lactate. My suspicion of tonsillitis is rather low given the lack of sore throat. At this time I am not treating with antibiotics. Patient will be admitted to the hospital for management of his significant hyponatremia. The finding of suprasellar aneurysm or meningioma may need dedicated cranial imaging to clarify. Patient has been otherwise hemodynamically stable, without other complaints, neurologically nonfocal. Vital Signs Vital signs: Initial Vital Signs Temperature 96.8 F L 01/29/22 10:33 Temperature Source Temporal Artery Scan 01/29/22 10:33 Pulse Rate 85 01/29/22 10:33 Respiratory Rate 20 01/29/22 10:33 Blood Pressure 173/64 H 01/29/22 10:33 Blood Pressure Mean 100 01/29/22 10:33 Blood Pressure Position Sitting 01/29/22 10:33 Pulse Oximetry 97 01/29/22 10:33 Oxygen Delivery Method 01/29/22 10:33 Vital Signs Temperature 96.8 F L 01/29/22 10:33 Pulse Rate 85 01/29/22 10:33 Respiratory Rate 20 01/29/22 10:33 Blood Pressure 173/64 H 01/29/22 10:33 Pulse Oximetry 97 01/29/22 10:33 Oxygen Delivery Method 01/29/22 10:33 Temperature 96.8 F L 01/29/22 15:27 Pulse Rate 70 01/29/22 15:27 Respiratory Rate 20 01/29/22 15:27 Blood Pressure 121/77 01/29/22 15:27 Pulse Oximetry 97 01/29/22 16:02 Oxygen Delivery Method 01/29/22 15:27 Medical Decision Making Lab Data Labs: Lab Results 01/29/22 01/29/22 01/29/22 Range/Units 11:40 11:40 11:40 WBC 4.26 L (4.50-11.00) K/uL RBC 3.21 L (4.30-5.90) m/uL Hgb 9.4 L (13.5-17.5) gm/dL Hct 25.5 L (37.0-53.0) % MCV 79 L (80-100) fL MCH 29 (26-34) pg MCHC 37 H (32-36) gm/dL RDW Coeff of Daniel 13.4 (11.5-15.5) % Plt Count 180 (140-440) K/uL Neut % (Auto) 49.6 (42.0-72.0) % Lymph % (Auto) 34.0 (20-44) % [place] % (Auto) 11.3 H (0.0-11.0) % Eos % (Auto) 4.0 (0.0-7.0) % Baso % (Auto) 0.9 (0.0-3.0) % Neut # (Auto) 2.10 (1.7-7.0) K/uL Lymph # (Auto) 1.40 (0.90-2.90) K/uL [place] # (Auto) 0.50 (0.00-0.90) K/UL Eos # (Auto) 0.20 (0.00-0.50) K/uL Baso # (Auto) 0.00 (0.00-0.30) K/uL Abs Immat Gran (auto) 0.01 (0.00-0.30) K/uL ESR 53 H (2-15) mm/hr Sodium 111 L* (135-149) mmol/L Potassium 3.9 (3.6-5.1) mmol/L Chloride 77 L (96-114) mmol/L Carbon Dioxide 28 (20-32) mmol/L BUN 8 (7-30) mg/dL Creatinine 0.6 (0.5-1.5) mg/dL Estimated Creat Clear 64.60 Estimated GFR 103 ml/min Glucose 108 (60-115) mg/dL Lactate (0.5-1.9) mmol/L Calcium 9.2 (8.4-10.6) mg/dL Total Bilirubin 0.6 (0.1-1.5) mg/dL Direct Bilirubin 0.2 (0.0-0.5) mg/dL AST 55 H (12-35) U/L ALT 45 (4-50) U/L Alkaline Phosphatase 75 (40-150) U/L C-Reactive Protein 0.7 (0.5-1.0) mg/dL Total Protein 5.5 L (6.0-8.3) g/dL Albumin 3.5 (3.3-5.0) g/dL TSH (0.270-4.200) uIU/mL SARS-CoV-2 (PCR) (Negative) Influenza Type A (PCR) (Negative) Influenza Type B (PCR) (Negative) RSV (PCR) (Negative) POC Troponin I (0.01-0.04) ng/ml 01/29/22 01/29/22 01/29/22 Range/Units 11:40 11:40 11:40 WBC (4.50-11.00) K/uL RBC (4.30-5.90) m/uL Hgb (13.5-17.5) gm/dL Hct (37.0-53.0) % MCV (80-100) fL MCH (26-34) pg MCHC (32-36) gm/dL RDW Coeff of Danile (11.5-15.5) % Plt Count (140-440) K/uL Neut % (Auto) (42.0-72.0) % Lymph % (Auto) (20-44) % [place] % (Auto) (0.0-11.0) % Eos % (Auto) (0.0-7.0) % Baso % (Auto) (0.0-3.0) % Neut # (Auto) (1.7-7.0) K/uL Lymph # (Auto) (0.90-2.90) K/uL [place] # (Auto) (0.00-0.90) K/UL Eos # (Auto) (0.00-0.50) K/uL Baso # (Auto) (0.00-0.30) K/uL Abs Immat Gran (auto) (0.00-0.30) K/uL ESR (2-15) mm/hr Sodium (135-149) mmol/L Potassium (3.6-5.1) mmol/L Chloride (96-114) mmol/L Carbon Dioxide (20-32) mmol/L BUN (7-30) mg/dL Creatinine (0.5-1.5) mg/dL Estimated Creat Clear Estimated GFR ml/min Glucose (60-115) mg/dL Lactate (0.5-1.9) mmol/L Calcium (8.4-10.6) mg/dL Total Bilirubin (0.1-1.5) mg/dL Direct Bilirubin (0.0-0.5) mg/dL AST (12-35) U/L ALT (4-50) U/L Alkaline Phosphatase (40-150) U/L C-Reactive Protein (0.5-1.0) mg/dL Total Protein (6.0-8.3) g/dL Albumin (3.3-5.0) g/dL TSH 1.000 (0.270-4.200) uIU/mL SARS-CoV-2 (PCR) Negative SARS-CoV-2 (Negative) Influenza Type A (PCR) Negative PCR FLU A (Negative) Influenza Type B (PCR) Negative PCR FLU B (Negative) RSV (PCR) Negative PCR RSV (Negative) POC Troponin I (0.01-0.04) ng/ml 01/29/22 Range/Units 12:02 WBC (4.50-11.00) K/uL RBC (4.30-5.90) m/uL Hgb (13.5-17.5) gm/dL Hct (37.0-53.0) % MCV (80-100) fL MCH (26-34) pg MCHC (32-36) gm/dL RDW Coeff of Daniel (11.5-15.5) % Plt Count (140-440) K/uL Neut % (Auto) (42.0-72.0) % Lymph % (Auto) (20-44) % [place] % (Auto) (0.0-11.0) % Eos % (Auto) (0.0-7.0) % Baso % (Auto) (0.0-3.0) % Neut # (Auto) (1.7-7.0) K/uL Lymph # (Auto) (0.90-2.90) K/uL [place] # (Auto) (0.00-0.90) K/UL Eos # (Auto) (0.00-0.50) K/uL Baso # (Auto) (0.00-0.30) K/uL Abs Immat Gran (auto) (0.00-0.30) K/uL ESR (2-15) mm/hr Sodium (135-149) mmol/L Potassium (3.6-5.1) mmol/L Chloride (96-114) mmol/L Carbon Dioxide (20-32) mmol/L BUN (7-30) mg/dL Creatinine (0.5-1.5) mg/dL Estimated Creat Clear Estimated GFR ml/min Glucose (60-115) mg/dL Lactate (0.5-1.9) mmol/L Calcium (8.4-10.6) mg/dL Total Bilirubin (0.1-1.5) mg/dL Direct Bilirubin (0.0-0.5) mg/dL AST (12-35) U/L ALT (4-50) U/L Alkaline Phosphatase (40-150) U/L C-Reactive Protein (0.5-1.0) mg/dL Total Protein (6.0-8.3) g/dL Albumin (3.3-5.0) g/dL TSH (0.270-4.200) uIU/mL SARS-CoV-2 (PCR) (Negative) Influenza Type A (PCR) (Negative) Influenza Type B (PCR) (Negative) RSV (PCR) (Negative) POC Troponin I 0.00 L (0.01-0.04) ng/ml
--- OUTSIDE RECORDS SUMMARY | 2022-01-29 11:47 | XMS_ITS | Clinical Summary ---
:1950 Author Organization [facility] [place] [address] Care Team Providers Name Role Phone Jose Linares MD Primary Care Provider [phone] Allergies Active Allergy Reactions Severity Noted Date Comments Nsaids (Non-Steroidal Other - Describe In 04/14/2011 Patient had bariatric Anti-Inflammatory Comment Field surgery. Should not Drug) take oral NSAID 's ever. Medications Medication Sig Dispensed Refills Start End Status Date Date blood-glucose Dispense glucose 1 Device 0 03/19/20 Active meterIndications: meter, test 13 Type II or strips and unspecified type lancets covered diabetes mellitus by the patient without mention of insurance. Test complication, not 3 times per day. stated as uncontrolled BD INSULIN SYRINGE USE WITH INSULIN 300 Each 3 07/06/19 Active UF 1 mL 30 gauge x INJECTIONS DAILY 17 2Indications: Diabetes mellitus without complication (HC) acetaminophen Take 1,000 mg by 0 Active (TYLENOL EXTRA mouth every 6 STRGTH) 500 mg hours if needed. tablet Max acetaminophen dose: 4000mg in 24 hrs. cholecalciferol Take 1,000 Units 0 Active (VITAMIN D3) 1,000 by mouth once unit tablet daily. fish oil-omega-3 Take 1 capsule 0 08/26/19 Active fatty acids (FISH by mouth 2 times 17 OIL) 1,200-360 mg daily. Okay to cap resume in 2 weeks lancets (ACCU-CHEK Test 3 times per 102 Each 6 06/10/19 Active FASTCLIX LANCING day. 19 DEV)Indications: Diabetes mellitus without complication (HC) blood sugar Dispense item 300 Strip 3 06/10/19 Acti ve diagnostic covered by pt 19 (TRUETEST TEST ins. E11.9 IDDM STRIPS) type II - Test 3 stripIndications: times/day. Diabetes mellitus without complication (HC) CPAPIndications: NEW replacement 1 Device 0 07/28/19 Active PREETI (obstructive CPAP machine for 20 sleep apnea) home use at pressure: [id number] , Water chamber x 1 q 6 mo, chin strap x 1 q 6 mo, full face mask x 1 q 3 mo, Full face cushion x 1 q mo, standard tubing x 1 q 3 mo, headgear x 1 q 6 mo, non disposable filter 1 q 6 mo, disposable filter x 2 q mo Length of Need: 99 months, Frequency of use: Daily blood sugar Dispense item 300 Each 3 10/20/19 Acti ve diagnostic (True covered by pt 21 Metrix Glucose Test ins. E11.9 IDDM Strip) type II - Test 2 stripIndications: times/day. Diabetes mellitus type 2, insulin dependent (HC) atorvastatin Take 1 Tablet 90 tablet. 3 07/21/19 Ac tive (LIPITOR) 40 mg (40 mg) by mouth 22 tabletIndications: once daily. ASHD (arteriosclerotic heart disease) citalopram (CELEXA) Take 1 Tablet 90 Tablet 3 07/21/19 Active 10 mg (10 mg) by mouth 22 tabletIndications: every morning. Depression, recurrent (HC) metFORMIN TAKE ONE TABLET 180 tablet. 3 07/21/19 Ac tive (GLUCOPHAGE) 1,000 (1000MG) TWICE 22 mg DAILY WITH MEALS tabletIndications: Diabetes mellitus without complication (HC) metoprolol Take 1 Tablet 90 Tablet 3 07/21/19 Activ e succinate (TOPROL (50 mg) by mouth 22 XL) 50 mg once daily. sustained-release tabletIndications: Hypertension, unspecified type tamsulosin (FLOMAX) Take 1 Capsule 30 Capsule 5 07/21/19 Active 0.4 mg (0.4 mg) by 22 capsuleIndications: mouth once daily BPH without urinary after a meal. obstruction lisinopriL Take 1 Tablet 90 Tablet 3 07/21/19 Activ e (PRINIVIL; ZESTRIL) (10 mg) by mouth 22 10 mg once daily. tabletIndications: Essential hypertension aMILoride-hydrochlo TAKE ONE TABLET 180 Tablet 1 01/17/20 Active rothiazide, 5-50 BY MOUTH ONE 22 mg, (MODURETIC) TIME DAILY tabletIndications: Hypertension, unspecified type trimethoprim-sulfam Take 1 Tablet by 0 01/13/20 Active ethoxazole, 160-800 mouth two times 22 mg, (BACTRIM DS, daily. SEPTRA DS) tab Eliquis 5 mg tablet Take 5 mg by 0 01/13/20 Active mouth two times 22 daily. guaiFENesin Take 1 Tablet 0 01/18/20 Acti ve (MUCINEX) 600 mg (600 mg) by 22 Extended-Release mouth 2 times tablet daily if needed for Expectoration. pantoprazole Take 1 Tablet 90 Tablet 3 01/18/20 Act pacheco (PROTONIX) 40 mg (40 mg) by mouth 22 delayed-release once daily. tabletIndications: Chronic GERD magnesium oxide Take 1 Tablet 30 Tablet 5 01/19/20 Active (MAG-OX 400) 400 mg (400 mg) by 22 tabletIndications: mouth once Low magnesium level daily. sennosides-docusate Take 1-4 tablets 40 tablet 0 08/11/1919/06 Discontinued , 8.6-50 mg, by mouth 2 times 17 022 (*Med (SENOKOT S) 8.6-50 daily if needed complete/Regime mg for n tabletIndications: Constipation. complete/Level Pituitary adenoma of care change) (HC) polyethylene Drink 3 liters 4000 mL 0 08/24/19 Di scontinued glycol-electrolyte the day before 22 022 (*Med (GOLYTELY) colonoscopy and com plete/Regime [id number] drink 1 liter 6 n -5.86 gram hours before comple te/Level suspensionIndicatio colonoscopy of care change) ns: Encounter for screening colonoscopy aMILoride-hydrochlo Take 1 Tablet by 60 tablet. 0 11/08/19 Discontinued rothiazide, 5-50 mouth once 22 022 mg, (MODURETIC) daily. tabletIndications: Hypertension, unspecified type Active Problems Problem Noted Date Pituitary adenoma with extrasellar extension 7 Kidney stone 06/21/2016 Benign non-nodular prostatic hyperplasia with lower ur inary tract symptoms 06/21/2016 History of kidney stones 05/29/2016 Type 2 diabetes mellitus with complication 07/21/2015 PREETI 01/29/1994 AHI-110, 09/07/2014 Aortic stenosis 08/28/2014 Overview: - echo 08/20/14: The aortic valve is calc ified, moderate stenosis and mild to moderate regurgitation. - angiogram 08/28/14: mild Exertional left arm pain 08/28/2014 ASHD (arteriosclerotic heart disease) 08/28/2014 Overview: - angiogram 08/28/2014: mild ASHD MRSA bacteremia 11/04/2013 DM (diabetes mellitus), type 2, 06/03/2013 Overview: Hemoglobin A1C (HgbA1C) > 10 ( As of ~ ). Postoperative hypotension - acute 06/02/2013 Overview: Required phenylephrine (Neosynephrine??) for a short time in post-anesthesia care unit (recovery). Bariatric surgery status complicating , child , or the 04/14/2011 puerperium, unspecified as to episode of care or not a pplicable Morbid obesity 08/03/2010 Overview: Status post (s/p) gastric bypass with ga stric sleeve. Ureteral stone 01/28/2009 Overview: 4.4cm !! Removed with percutaneous nephr olithotomy 06/02/13 (Dr. 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 HX OF COLONIC POLYPS Overview: Colonoscopy 09/2014 polyp repeat in 5 yea rs Hyperlipidemia Pituitary adenoma Steroid-induced hyperglycemia Resolved Problems Problem Noted Date Resolved Date Sepsis, Gram positive 01/28/2009 08/03/2010 Bony callus 01/15/2009 08/03/2010 Overview: 4cm callus on right posterior 5th rib; s hows up as mass on chest X-ray Hydronephrosis 01/02/2009 08/03/2010 Acute renal failure 01/02/2009 08/03/2010 Pyelonephritis 01/02/2009 08/03/2010 Sepsis with hypotension, renal failure 01/01/2009 0 08/03/2010 Depression, major 07/30/2008 12/04/2011 Acute pericarditis, unspecified 03/30/2003 12/04/19 12 Morbid obesity 08/03/2010 Unspecified hemorrhoids without mention of complication 12/04/2011 Acute coronary syndrome 08/03/2010 Encounters Date Type Specialty Care Team Description 01/23/2022 Travel 01/23/2022 Nurse Triage Votel, Bib Hammer culty Breathing 01/18/2022 Telephone WindyDarrell hager Resul ts 01/18/2022 Telephone Cardiology, Anw Referral 01/17/2022 Office Visit Votel, Dulce Hammer snehal F/U ([facility], transferred fro m [facility] ER, 01/10/22, UTI, i rregular heartbeat, weak ness); Immunization/In jection 01/16/2022 Office Visit Nora Xie AuD Hear ing Problem (Hearing test and hearin g aid check/) 01/16/2022 Office Visit Mihaela Randall, Ear P pedrito (Ear cleaning) PA 01/16/2022 Travel 01/13/2022 Refill VotelJose Refil l Request (Amiloride-hydr ochlorothiaz coleen (5-50 Mg)) 01/10/2022 Orders Only Scanner <No scans attac hed> 12/20/2021 Telephone Votel, Marv Hammer (ENT ) 11/07/2021 Refill VotelJose Refil l Request (aMILoride-hydr ochlorothiaz coleen, 5-50 mg, ( MODURETIC) tablet) from Last 3 Months Immunizations Name Administration Dates Next Due AMB Influenza, IIV3 (Age >=3 02/26/2013 years)(Flu Clinic Only) COVID-19 vaccine (Moderna 07/27/2020, 06/29/2020 100mcg/0.5mL) PF, MDV Influenza A (H1N1), Inactivated (Age 1103/21/2010 >=3 Years) Influenza Virus, Unspecified 02/16/2017 Influenza, High-dose Inactivated 02/18/2018, 02/09/2017, , 02/25/2015 Influenza, High-dose Quadrivalent 01/16/2021 Inactivated Influenza, IIV3 (Age >=3 years) 01/23/2012, 12/29/2010, 12/29, 02/18/2008, 03/01/2007, 02/16/2006 Influenza, Inactivated IIV3 (Age 65+ 01/28/2020, 02/11/2019, 02/07/2018 Years) Preserv Free Pneumococcal Poly,23-Valent 08/23/2017, 07/27/2006 (Pneumovax) Pneumococcal conj 13-Valent (Prevnar 02/14/2016 13) Td (Age >=7 Years) 07/25/2016, 01/25/1995 Tdap 07/27/2006 Zoster (Zostavax-ZVL, live) 01/23/2012 Family History Medical History Relation Name Comments Cancer-colon Father Obesity Father Heart Disease Mother Hyperlipidemia Mother Hypertension Mother Obesity Mother Stroke Mother Obesity Sister 1 Diabetes Sister 2 Good Health Son 3 Good Health Son 4 Relation Name Status Comments Father colon cancer Mother aortic aneurysm Sister 1 Alive Sister 2 Son 1 Alive Son 2 Alive Son 3 Son 4 Social History Tobacco Use Types Packs/Day Years Used Date Former Smoker Cigarettes 1 20 Quit: 04/30/18 92 Smokeless Tobacco: Never Used Tobacco Cessation: Counseling Given: Yes Alcohol Use Standard Drinks/Week Comments Yes 1 (1 standard drink = 0.6 oz pure alcoho l) occ Alcohol Habits Answer Date Recorded How often do you have a drink containing alcohol? 2-4 times a month 07/19/2018 How many drinks containing alcohol do you have on a 1 or 2 07/19/2018 typical day when you are drinking? How often do you have six or more drinks on one Never 07/19/2018 occasion? Comment: occ 07/20/2021 Sex Assigned at Date Recorded Not on file COVID-19 Exposure Response Date Recorded In the last 10 days, have you been in contact with No / Unsu re 01/23/2022 9:54 AM CDT someone who was confirmed or suspected to have Coronavirus/COVID-19? Obstetrics History Last Filed Vital Signs Vital Sign Reading Time Taken Comments Blood Pressure 105/58 01/17/2022 2:28 PM CDT Pulse 75 01/17/2022 2:28 PM CDT Temperature 36.4 ??C (97.5 ??F) 01/17/2022 2:28 PM CDT Respiratory Rate 18 02/22/2017 11:07 AM CDT Oxygen Saturation 95% 01/17/2022 2:28 PM CDT Inhaled Oxygen Concentration - - Weight 142.5 kg (314 lb 3.2 oz) 01/17/2022 2:28 PM CDT Height 170.2 cm (5' 7) 08/23/2021 1:41 PM CDT Body Mass Index 49.21 08/23/2021 1:41 PM CDT Plan of Treatment Upcoming Encounters Date Type Specialty Care Team Description 02/06/2022 Procedure Only Rayshawn Aden MD [address] [place], [place] [phone] (Wo rk) 02/17/2022 Office Visit Librado Jacques, AuD [address] [place], [place] [phone] (Wo rk) 03/13/2022 Office Visit Logan Cortez MD [address] [facility] [place] [phone] (Wo rk) 04/05/2022 Office Visit Leroy Banuelos MD [address] [phone] (Wo rk) Health Maintenance Due Date Last Done Comments Hepatitis C screening for age 0901/06/1968 18-79 Zoster (shingles) series for age 1103/19/2012 01/23/2012 50+ (2 of 3) Colonoscopy through age 75 09/29/2019 09/28/2014, 5, 01/09/2011, Additional history exists Influenza for age 65+ 12/29/2021 01/16/2021, 01/28/2020, 02/11/2019, Additional history exists Depression screening for age 12+ 07/20/2022 07/20/2021, , 03/11/2019, Additional history exists Medicare Wellness for age 65+ 07/20/2022 07/20/2021, 2016 BMI (ht and wt on same day) for 08/23/2022 08/23/2021, 07/29, age 18+ 07/20/2021, Additional history exists Lipids for age 45-75 07/20/2026 07/20/2021, 10/19/2020, 12/02/2019, Additional history exists Tetanus booster 07/25/2026 07/25/2016, 07/27/2006, 01/25/1995 Tdap Completed 07/27/2006 AAA screening age 55-77 Completed 05/29/2016, 06/03/2013, 04/22/2013, Additional history exists Pneumococcal series for age 65+ Completed 08/23/2017, 01/28, 07/27/2006 COVID-19 vaccine series Completed 08/26/2021, 02/20/2021, 07/27/2020, Additional history exists Medical Devices Implanted Type Area Program Professional Device Shelf Expiration Model / Identifier Date Serial / Lot Amplatz Ureteral Stent Set [id number]-[id number] / Implanted: Qty: 1 on 06/02/2013 at [facility] / Description: AMPLATZ URETERAL STENT SET Procedures Procedure Name Priority Date/Time Associated Diagnosis Comme nts RED CELL MORPHOLOGY Routine 01/17/2022 3:28 UTI (urinary tract Results for this PM CDT infection), procedure are i n uncomplicated the results section. PLATELET ESTIMATE Routine 01/17/2022 3:28 UTI (urinary tract R esults for this PM CDT infection), procedure are i n uncomplicated the results section. MANUAL DIFFERENTIAL Routine 01/17/2022 3:28 UTI (urinary tract Results for this PM CDT infection), procedure are i n uncomplicated the results section. CBC WITH AUTO Routine 01/17/2022 3:28 UTI (urinary tract Resul ts for this DIFFERENTIAL PM CDT infection), procedure are i n uncomplicated the results section. MAGNESIUM Routine 01/17/2022 3:28 Atrial tachycardia Result s for this PM CDT (HC) procedure are i n the results section. BASIC METABOLIC PANEL Routine 01/17/2022 3:28 Atrial tachycard ia Results for this PM CDT (HC) procedure are i n the results section. CBC WITH AUTO Routine 01/17/2022 3:28 UTI (urinary tract Resul ts for this DIFFERENTIAL PM CDT infection), procedure are i n uncomplicated the results section. SCAN-RADIOLOGY REPORT 01/10/2022 12:00 Re sults for this AM CDT procedure are i n the results section. from Last 3 Months Results (ABNORMAL) CBC WITH AUTO DIFFERENTIAL (01/17/2022 3:28 PM CDT) [facility] Method Time Signature WHITE BLOOD 9.7 4.5 - 11.0 01/17/2022 [facility] COUNT thou/cu mm 4:01 PM [facility] RED BLOOD COUNT 3.67 (L) 4.30 - 01/17/2022 [facility] 5.90 4:[address] [facility] mil/cu mm CLINIC HEMOGLOBIN 10.7 (L) 13.5 - 01/17/2022 [facility] 17.5 g/dL 4:01 PM [facility] HEMATOCRIT 30.6 (L) 37.0 - 01/17/2022 [facility] 53.0 % 4:01 PM [facility] MCV 83 80 - 100 01/17/2022 [facility] fL 4:01 PM [facility] MCH 29.2 26.0 - 01/17/2022 [facility] 34.0 pg 4:01 PM [facility] MCHC 35.0 32.0 - 01/17/2022 [facility] 36.0 g/dL 4:01 PM [facility] RDW 14.4 11.5 - 01/17/2022 [facility] 15.5 % 4:01 PM [facility] PLATELET COUNT 202 140 - 440 [facility] MPV 10.5 6.5 - 11.0 01/17/2022 [facility] fL 4:01 PM [facility] Specimen Anatomical Collection Method / Collection Time Recei vanessa Time (Source) Location / Volume Laterality Blood BLOOD SPECIMEN / Venipuncture / 01/17/2022 3:28 2021 3:29 Unknown Unknown PM CDT PM CDT Jose Linares MD HEMATOLOGY Performing Organization Address City/[facility]/ZIP Code Phon e Number [facility] [address] [place] [address] (ABNORMAL) RED CELL MORPHOLOGY (01/17/2022 3:28 PM CDT) [facility] Method Time Signature ELLIPTOCYTES Few 01/17/2022 [facility] 4:01 PM CDT [facility] RBC COMMENT Present RBC 01/17/2022 [facility] (A) morphology 4:01 PM CDT [facility] normal, RBC morphology within normal limits for newborns. LARGE PLATELETS Present 01/17/2022 [facility] 4:01 PM CDT [facility] Specimen Anatomical Collection Method / Collection Time Recei vanessa Time (Source) Location / Volume Laterality Blood BLOOD SPECIMEN / Venipuncture / 01/17/2022 3:28 2021 3:29 Unknown Unknown PM CDT PM CDT Jose Linares MD HEMATOLOGY Performing Organization Address City/State/ZIP Code Phon e Number [facility] [address] [place] [address] PLATELET ESTIMATE (01/17/2022 3:28 PM CDT) [facility] Signature PLATELET Adequate Adequate, No 01/17/2022 [facility] ESTIMATE estimate 4:01 PM CDT [facility] Specimen Anatomical Collection Method / Collection Time Recei vanessa Time (Source) Location / Volume Laterality Blood BLOOD SPECIMEN / Venipuncture / 01/17/2022 3:28 2021 3:29 Unknown Unknown PM CDT PM CDT Jose Linares MD HEMATOLOGY Performing Organization Address City/[facility]/ZIP Code Phon e Number [facility] [address] [place] [address] (ABNORMAL) MANUAL DIFFERENTIAL (01/17/2022 3:28 PM CDT) [facility] Method Time Signature % NEUTROPHILS 61.0 % 01/17/2022 [facility] 4:01 PM CDT [facility] % LYMPHOCYTES 26.0 % 01/17/2022 [facility] 4:01 PM CDT [facility] % MONOCYTES 9.0 % 01/17/2022 [facility] 4:01 PM CDT [facility] % EOSINOPHILS 4.0 % 01/17/2022 [facility] 4:01 PM CDT [facility] % BASOPHILS 0.0 % 01/17/2022 [facility] 4:01 PM CDT [facility] NEUTROPHILS 5.9 1.7 - 7.0 01/17/2022 [facility] ABSOLUTE thou/cu mm 4:01 PM CDT [facility] LYMPHOCYTES 2.5 0.9 - 2.9 01/17/2022 [facility] ABSOLUTE thou/cu mm 4:01 PM CDT [facility] MONOCYTES 0.9 (H) <0.9 01/17/2022 [facility] ABSOLUTE thou/cu mm 4:01 PM CDT [facility] EOSINOPHILS 0.4 <0.5 01/17/2022 [facility] ABSOLUTE thou/cu mm 4:01 PM CDT [facility] BASOPHILS 0.0 <0.3 01/17/2022 [facility] ABSOLUTE thou/cu mm 4:01 PM CDT [facility] Specimen Anatomical Collection Method / Collection Time Recei vanessa Time (Source) Location / Volume Laterality Blood BLOOD SPECIMEN / Venipuncture / 01/17/2022 3:28 2021 3:29 Unknown Unknown PM CDT PM CDT Jose Linares MD HEMATOLOGY Performing Organization Address City/[facility]/ZIP Code Phon e Number [facility] [address] [place] [address] (ABNORMAL) MAGNESIUM (01/17/2022 3:28 PM CDT) P athologist Signature MAGNESIUM 1.1 (LL) 1.6 - 2.6 01/18/2022 [facility] mg/dL 5:08 PM CDT - [facility] Specimen Anatomical Collection Method / Collection Time Recei vanessa Time (Source) Location / Volume Laterality Blood BLOOD SPECIMEN / Venipuncture / 01/17/2022 3:28 2021 3:29 Unknown Unknown PM CDT PM CDT Jose Linares MD CHEMISTRY Performing Organization Address City/State/ZIP Code Phon e Number [facility] INTERNAL ZIP [address] [place] [address] [facility] [address] (ABNORMAL) BASIC METABOLIC PANEL (01/17/2022 3:28 PM CDT) [facility] SODIUM 134 (L) 135 - 145 01/18/2022 [facility] mmol/L 4:47 PM [facility] POTASSIUM 3.6 3.5 - 5.0 01/18/2022 [facility] mmol/L 4:47 PM [facility] CHLORIDE 98 98 - 110 01/18/2022 [facility] mmol/L 4:47 PM [facility] CO2,TOTAL 26 21 - 31 01/18/2022 [facility] mmol/L 4:47 PM [facility] ANION GAP 10 5 - 18 01/18/2022 [facility] 4:47 PM [facility] GLUCOSE 94 65 - 100 01/18/2022 [facility] mg/dL 4:47 PM [facility] CALCIUM 9.6 8.5 - 10.5 01/18/2022 [facility] mg/dL 4:47 PM [facility] BUN 7 (L) 8 - 25 01/18/2022 [facility] mg/dL 4:47 PM [facility] CREATININE 0.88 0.72 - 01/18/2022 [facility] 1.25 mg/dL 4:47 PM [facility] BUN/CREAT RATIO 8 (L) 10 - 20 01/18/2022 [facility] 4[facility]47 PM [facility] eGFR >90 >90 01/18/2022 [facility] mL/min/1.7 4:47 PM [facility] 3m2 LABORATORY Comment: As of 2021, eGFR is calcu lated by the CKD-EPI creatinine equation without race adjustment. eGFR can be inf luenced by muscle mass, exercise, and diet. The reported eGFR is an estimation only and is only applicable if the renal function is stable. Specimen Anatomical Collection Method / Collection Time Recei vanessa Time (Source) Location / Volume Laterality Blood BLOOD SPECIMEN / Venipuncture / 01/17/2022 3:28 2021 3:29 Unknown Unknown PM CDT PM CDT Jose Linares MD CHEMISTRY Performing Organization Address City/State/ZIP Code Phon e Number [facility] INTERNAL ZIP [address] [place] [address] [facility] [address] SCAN-RADIOLOGY REPORT (01/10/2022 12:00 AM CDT) Narrative This result has an attachment that is no t available. Scanner OTHER from Last 3 Months Additional Health Concerns Infection Onset Date Last Indicated MRSA ClearanceComment: Infection Control Note: Hx of MRSA, 0 08/03/2016 08/03/2016 surveillance criteria met, no need for further testing or isolation precautions. Do not delete or deactivate the FYI. #1 04/13/11 Nares/throat negative #2 08/29/14 Nares negative HX MRSA+ R renal fluid 01/01/09; blood 06/07/ Insurance Payer Benefit Plan / Subscriber ID Effective Dates Phone Addre ss Type Group MEDICARE PART B MEDICARE PART B [id number] 2014-Presen ATTN: CLAIMS - HB USE ONLY HB ONLY t [address] [place] [address] MEDICARE PART A MEDICARE PART A [id number] 2014-Presen ATTN: CLAIMS - HB USE ONLY HB ONLY t [address] [place] [address] [employer] [place] [employer] [id number] 2018-Presen [address] [place], [place] [id number] Advance Directives Latest Code Status on File Code Status Date Activated Date Inactivated Comments Full Code 08/07/2016 6:55 PM 08/11/2016 5:09 PM Code Status Discussion: Not Discussed Per Advance Care Plan Full Code 08/07/2016 10:11 AM 08/07/2016 6:53 PM Code Status Discussion: Not Discussed Per Advance Care Plan Full Code 11/11/2014 2:47 AM 11/11/2014 2:55 PM Full Code 08/28/2014 7:24 AM 08/28/2014 5:05 PM Full Code 04/13/2011 12:51 PM 04/15/2011 6:21 PM Care Teams Porcelain Enameler Relationship Specialty Start Date End Date Votel, Jose Bateman MD PCP - General Family Practice 08/17/11 [address] [place] [address]
[2022-01-29 11:54] LABS: Basophils Percent Auto 0.9 % (0.0-3.0); Hematocrit 25.5 % (37.0-53.0); Hemoglobin* 9.4 gm/dL (13.5-17.5); Immature Granulocytes Abs Auto 0.01 K/uL (0.00-0.30); Mean Corpuscular HGB Conc 37 gm/dL (32-36); Mean Corpuscular Hemoglobin 29 pg (26-34); Mean Corpuscular Volume 79 fL (80-100); Monocytes Percent Auto 11.3 % (0.0-11.0); Neutrophils Percent Auto 49.6 % (42.0-72.0); Platelet Count* 180 K/uL (140-440); RDW Coefficient of Variation % 13.4 % (11.5-15.5); Red Blood Count 3.21 m/uL (4.30-5.90); White Blood Count* 4.26 K/uL (4.50-11.00)
[2022-01-29 11:55] LABS: Slide Review Reflex No
[2022-01-29] MEDS: 0.9 % SODIUM CHLORIDE 500 ML 500 ML IV (12:01)
[2022-01-29] MEDS: ONDANSETRON 2 MG/ML inj 4 MG IVP (12:01)
[2022-01-29 12:12] LABS: Albumin* 3.5 g/dL (3.3-5.0); Chloride* 77 mmol/L (96-114)
[2022-01-29 12:13] LABS: Potassium* 3.9 mmol/L (3.6-5.1)
[2022-01-29 12:15] LABS: Creatinine* 0.6 mg/dL (0.5-1.5); Estimated Glomerular Filt Rate 103 ml/min
[2022-01-29 12:16] LABS: Alanine Aminotransferase* 45 U/L (4-50); Alkaline Phosphatase* 75 U/L (40-150); Aspartate Amino Transferase* 55 U/L (12-35); Bilirubin Direct* 0.2 mg/dL (0.0-0.5); Bilirubin Total* 0.6 mg/dL (0.1-1.5); Blood Urea Nitrogen* 8 mg/dL (7-30); Calcium* 9.2 mg/dL (8.4-10.6); Carbon Dioxide* 28 mmol/L (20-32); Glucose* 108 mg/dL (60-115); Sodium* 111 mmol/L (135-149); Total Protein* 5.5 g/dL (6.0-8.3)
[2022-01-29 12:18] LABS: C Reactive Protein* 0.7 mg/dL (0.5-1.0)
[2022-01-29 12:32] LABS: Erythrocyte SedimentationRate* 53 mm/hr (2-15)
[2022-01-29 12:35] LABS: PCR FLU A Negative PCR FLU A (Negative); PCR FLU B Negative PCR FLU B (Negative); PCR RSV Negative PCR RSV (Negative)
[2022-01-29 12:40] LABS: SARS PCR* Negative SARS-CoV-2 (Negative)
--- OUTSIDE RECORDS SUMMARY | 2022-01-29 13:57 | XMS_ITS | Clinical Summary ---
:1950 Author Organization [id number] [place] [address] Care Team Providers Name Role Phone Jose Linares MD Primary Care Provider [phone] Allergies Active Allergy Reactions Severity Noted [...] 20 sleep apnea) home use at pressure: [id number] , Water chamber x 1 q 6 [...] Office Visit Votel, Dulce Hammer snehal F/U ([facility], transferred fro m [facility] ER, 01/10/22, UTI, i rregular heartbeat, [...] 02/06/2022 Procedure Only Rayshawn Aden MD [address] [place], [place] [phone] (Wo rk) 02/17/2022 Office Visit Librado Jacques, AuD [address] [place], [place] [phone] (Wo rk) 03/13/2022 Office Visit Logan Cortez MD [address] [place], [place] [phone] (Wo rk) 04/05/2022 Office Visit Leroy Banuelos MD [address] [phone] (Wo rk) Health Maintenance Due Date Last Done Comments Hepatitis C screening for age 0901/06/1968 18-79 Zoster (shingles) series for age 1103/19/2012 01/23/2012 50+ (2 of 3) Colonoscopy through age 75 09/29/2019 09/28/2014, 5, 01/09/2011, Additional history exists COVID-19 vaccine series (5 - 10/21/2021 08/26/2021, 021, Booster for Moderna series) 07/27/2020, Addition al history exists Influenza for age 65+ 12/29/2021 [...] for age 65+ Completed 08/23/2017, 01/28, 07/27/2006 Medical Devices Implanted Type Area Bobbin Marker Device Shelf Expiration Model / Identifier Date Serial / Lot Amplatz Ureteral Stent Set [id number]-[id number] / Implanted: Qty: 1 on 06/02/2013 at [facility] / Description: AMPLATZ URETERAL STENT SET [...] WITH AUTO DIFFERENTIAL (01/17/2022 3:28 PM CDT) [facility] Method Time Signature WHITE BLOOD 9.7 4.5 - 11.0 01/17/2022 [facility] COUNT thou/cu mm 4:01 PM [facility] RED BLOOD COUNT 3.67 (L) 4.30 - 01/17/2022 [facility] 5.90 4:01 PM [facility] mil/cu mm CLINIC HEMOGLOBIN 10.7 (L) 13.5 - 01/17/2022 [facility] 17.5 g/dL 4:01 PM [facility] HEMATOCRIT 30.6 (L) 37.0 - 01/17/2022 [facility] 53.0 % 4:01 PM [facility] MCV 83 80 - 100 01/17/2022 [facility] fL 4:01 PM [facility] MCH 29.2 26.0 - 01/17/2022 [facility] 34.0 pg 4:01 PM [facility] MCHC 35.0 32.0 - 01/17/2022 [facility] 36.0 g/dL 4:01 PM [facility] RDW 14.4 11.5 - 01/17/2022 [facility] 15.5 % 4:01 PM [facility] PLATELET COUNT 202 140 - 440 [facility] MPV 10.5 6.5 - 11.0 01/17/2022 [facility] fL 4:01 PM [facility] Specimen Anatomical Collection Method / Collection Time Recei vanessa Time (Source) Location / Volume Laterality Blood BLOOD SPECIMEN / Venipuncture / 01/17/2022 3:28 2021 3:29 Unknown Unknown PM CDT PM CDT Jose Linares MD HEMATOLOGY Performing Organization Address City/[facility]/ZIP Code Phon e Number [facility] [address] [place] [address] (ABNORMAL) RED CELL MORPHOLOGY (01/17/2022 3:28 PM CDT) [facility] Method Time Signature ELLIPTOCYTES Few 01/17/2022 [facility] 4:01 PM CDT [facility] RBC COMMENT Present RBC 01/17/2022 [facility] (A) morphology 4:01 PM CDT [facility] normal, RBC morphology within normal limits for newborns. LARGE PLATELETS Present 01/17/2022 [facility] 4:01 PM CDT [facility] Specimen Anatomical Collection Method / Collection Time Recei vanessa Time (Source) Location / Volume Laterality Blood BLOOD SPECIMEN / Venipuncture / 01/17/2022 3:28 2021 3:29 Unknown Unknown PM CDT PM CDT Jose Linares MD HEMATOLOGY Performing Organization Address City/[facility]/ZIP Code Phon e Number [facility] [address] [place] [address] PLATELET ESTIMATE (01/17/2022 3:28 PM CDT) [facility] Signature PLATELET Adequate Adequate, No 01/17/2022 [facility] ESTIMATE estimate 4:01 PM CDT [facility] Specimen Anatomical Collection Method / Collection Time Recei vanessa Time (Source) Location / Volume Laterality Blood BLOOD SPECIMEN / Venipuncture / 01/17/2022 3:28 2021 3:29 Unknown Unknown PM CDT PM CDT Jose Linares MD HEMATOLOGY Performing Organization Address City/[facility]/ZIP Code Phon e Number [facility] [address] [place] [address] (ABNORMAL) MANUAL DIFFERENTIAL (01/17/2022 3:28 PM CDT) [facility] Method Time Signature % NEUTROPHILS 61.0 % 01/17/2022 [facility] 4:01 PM CDT [facility] % LYMPHOCYTES 26.0 % 01/17/2022 [facility] 4:01 PM CDT [facility] % MONOCYTES 9.0 % 01/17/2022 [facility] 4:01 PM CDT [facility] % EOSINOPHILS 4.0 % 01/17/2022 [facility] 4:01 PM CDT [facility] % BASOPHILS 0.0 % 01/17/2022 [facility] 4:01 PM CDT [facility] NEUTROPHILS 5.9 1.7 - 7.0 01/17/2022 [facility] ABSOLUTE thou/cu mm 4:01 PM CDT [facility] LYMPHOCYTES 2.5 0.9 - 2.9 01/17/2022 [facility] ABSOLUTE thou/cu mm 4:01 PM CDT [facility] MONOCYTES 0.9 (H) <0.9 01/17/2022 [facility] ABSOLUTE thou/cu mm 4:01 PM CDT [facility] EOSINOPHILS 0.4 <0.5 01/17/2022 [facility] ABSOLUTE thou/cu mm 4:01 PM CDT [facility] BASOPHILS 0.0 <0.3 01/17/2022 [facility] ABSOLUTE thou/cu mm 4:01 PM CDT [facility] Specimen Anatomical Collection Method / Collection Time Recei vanessa Time (Source) Location / Volume Laterality Blood BLOOD SPECIMEN / Venipuncture / 01/17/2022 3:28 2021 3:29 Unknown Unknown PM CDT PM CDT Jose Linares MD HEMATOLOGY Performing Organization Address City/State/ZIP Code Phon e Number [facility] [address] [place] [address] (ABNORMAL) MAGNESIUM (01/17/2022 3:28 PM CDT) athologist Signature MAGNESIUM 1.1 (LL) 1.6 - 2.6 01/18/2022 [facility] mg/dL 5:08 PM CDT - [facility] Specimen Anatomical Collection Method / Collection Time Recei vanessa Time (Source) Location / Volume Laterality Blood BLOOD SPECIMEN / Venipuncture / 01/17/2022 3:28 2021 3:29 Unknown Unknown PM CDT PM CDT Jose Linares MD CHEMISTRY Performing Organization Address City/State/ZIP Code Phon e Number [facility] INTERNAL ZIP [address] [place] [address] C[facility] LAB[facility] [address] (ABNORMAL) BASIC METABOLIC PANEL (01/17/2022 3:28 PM CDT) [facility] Signature SODIUM 134 (L) 135 - 145 01/18/2022 [facility] mmol/L 4:[address] [facility] POTASSIUM 3.6 3.5 - 5.0 01/18/2022 [facility] mmol/L 4:[address] [facility] CHLORIDE 98 98 - 110 01/18/2022 [facility] mmol/L 4:[address] [facility] CO2,TOTAL 26 21 - 31 01/18/2022 [facility] mmol/L 4:[address] [facility] ANION GAP 10 5 - 18 01/18/2022 [facility] 4:[address] [facility] GLUCOSE 94 65 - 100 01/18/2022 [facility] mg/dL 4:[address] [facility] CALCIUM 9.6 8.5 - 10.5 01/18/2022 [facility] mg/dL 4:[address] [facility] BUN 7 (L) 8 - 25 01/18/2022 [facility] mg/dL 4:[address] [facility] CREATININE 0.88 0.72 - 01/18/2022 [facility] 1.25 mg/dL 4:[address] [facility] BUN/CREAT RATIO 8 (L) 10 - 20 [facility] [facility] eGFR >90 >90 01/18/2022 [facility] mL/min/1.7 4:[address] [facility] 3m2 LABORATORY Comment: As of 2021, eGFR [...] Organization Address City/State/ZIP Code Phon e Number [facility] ZIP [address] [place] [address] [facility] [address] SCAN-RADIOLOGY REPORT (01/10/2022 [...] Group MEDICARE PART B MEDICARE PART B [id number] 2014-Presen ATTN: CLAIMS - HB USE ONLY HB ONLY t [address] [place] [address] MEDICARE PART A MEDICARE PART A [id number] 2014-Presen ATTN: CLAIMS - HB USE ONLY HB ONLY t [address] [place] [address] BLUE CROSS MR BLUE CROSS [id number] 2018-Presen [id number] [place] [id number] Advance Directives Latest Code Status on File [...] 12:51 PM 04/15/2011 6:21 PM Care Teams Skiagrapher Relationship Specialty Start Date End Date Votel, Jose Bateman MD PCP - General Family Practice 08/17/11 [address] [place] [address]
--- NOTE | 2022-01-29 15:13 | PM.IMHP1 ---
Hospitalist- H&P: HPI History of Present Illness Time Seen by Provider: 15:00 Date Seen: 01/29/22 Chief complaint: Gaging not eating or drinking Narrative: Sulaiman Trujillo is a 72 year old male who came in through the ER complaining of weakness and gagging. About 3 weeks ago he had come into the ER and was found to be in SVT, which did not respond to adenosine and he developed hypotension and had to be cardioverted. While his symptoms improved, there was a concern for possible sepsis as well. He was transferred to [facility] where he was treated for urinary tract infection and discharged on a 14 day course of Bactrim. During that hospitalization he also had hypokalemia and hypo magnesemia. He was also noted to have a hemoglobin in the nines without obvious blood loss with a baseline hemoglobin on 01/10/2022 of 11.5. He was discharged on 14 day course of Bactrim which he finished on Sunday. He tells me that when he was discharged from [facility], he was actually feeling pretty well. Although [place], his ex took him in to her [id number] suite where she has been managing his medications and caring for him. He notes that a few days after discharge, he started if he will a lot more phlegm, saliva, and gagging. Also started to feel weak. Since starting the Bactrim he has been having diarrhea which he describes as ?coffee-ground diarrhea. ? He has noticed no burt blood. He went to the emergency department on 01/23/2022 for these concerns and has also been in contact with his primary care provider who started pantoprazole. He took that for about 4 days, but noted that it made him feel worse and stopped. His ex- has been pushing him to drink lots of water during this time and notes that he started refusing that in the last day. He has had no cardiac symptoms, no palpitations, chest pain, shortness of breath, or racing heart. Today he feels ?incredibly weak,? which is what brought him in. Says it has gotten to the point where he can not walk and he gets the muscle shakes. Today he has also been more nauseous but has not yet vomited. Review of Systems Const: Reports: fatigue; Denies: fever or chills ENMT: Denies: throat pain, difficulty swallowing or hoarseness Cardio: Denies: chest pain, palpitations, shortness of breath with exertion or shortness of breath when lying down Resp: Denies: shortness of breath GI: Reports: nausea, diarrhea (coffee-ground diarrhea) and constipation (ex- notes he is usually constipated, having diarrhea since bactrim); Denies: abdominal pain, vomiting, difficulty swallowing or blood in stool Endo: Reports: fatigue PFSH PFSH Medical History (Updated 01/29/22 @ 18:30 by Gina Carreon MD) Abnormal colonoscopy Aortic stenosis ASHD (arteriosclerotic heart disease) Benign non-nodular prostatic hyperplasia with lower urinary tract symptoms Diabetes mellitus type 2 in obese Hx of colonic polyps Hyperlipidemia Hypertension Kidney stones Malignant melanoma of right upper extremity Morbid obesity MRSA bacteremia Pituitary adenoma with extrasellar extension Postoperative hypotension Sleep apnea Steroid-induced hyperglycemia Surgical History (Updated 01/29/22 @ 14:48 by Gina Carreon MD) H/O hemorrhoidectomy H/O lithotripsy H/O nephrostomy H/O right hemicolectomy H/O umbilical hernia repair H/O vasectomy History of total right hip arthroplasty Hx of appendectomy Hx of colonoscopy S/P laparoscopic sleeve gastrectomy S/P skin biopsy Status post transsphenoidal pituitary resection Family History (Updated 01/29/22 @ 14:51 by Gina Carreon MD) Father Colon cancer Obesity Sister Diabetes Obesity Mother Heart disease High blood pressure Hyperlipidemia Obesity Stroke Social History (Updated 01/29/22 @ 18:38 by Gina Carreon MD) Narrative: [place] Currently staying in [id number] suite at his ex-'s house. Wishes to be full code. Denies EtOH use in the last month. Denies tobacco or recreational drug use. Highest level of school completed/degree received: Associate degree: occupational, technical, vocational program Smoking Status: Former smoker What tobacco products do you use: cigarettes Years smoked: 30 Smoking quit date/years: >15 years ago Do you use any of these nicotine containing products: None Second hand tobacco smoke exposure: No How often do you have a drink containing alcohol: 2-4 times a month Alcohol type: beer How many standard drinks containing alcohol do you have on a typical day: 1 or 2 How often do you have six or more drinks on one occasion: Less than monthly AUDIT-C Alcohol total score: 3 Non-prescribed substance use: denies use Caffeine: Yes (3-4 daily) service: No Meds Home Medications and Allergies Home Medications Medication Instructions Recorded Confirmed Type amiloride 5 mg-hydrochlorothiazide 1 tab PO DAILY 01/10/22 01/29/22 History 50 mg tablet atorvastatin 40 mg tablet 40 mg PO DAILY 01/10/22 01/29/22 History citalopram 10 mg tablet 10 mg PO DAILY 01/10/22 01/29/22 History lisinopril 10 mg tablet 10 mg PO DAILY 01/10/22 01/29/22 History metformin 1,000 mg tablet 1,000 mg PO BID 01/10/22 01/29/22 History metoprolol succinate 50 mg 50 mg PO DAILY 01/10/22 01/29/22 History tablet,extended release 24 hr tamsulosin 0.4 mg capsule 0.4 mg PO DAILY 01/10/22 01/29/22 History apixaban 5 mg tablet (Eliquis) 5 mg PO BID 01/23/22 01/29/22 History cholecalciferol (vitamin D3) 25 1,000 unit PO DAILY 01/23/22 01/29/22 History mcg (1,000 unit) tablet guaifenesin 600 mg tablet, 600 mg PO BID PRN 01/23/22 01/29/22 History extended release 12 hr (Mucinex) magnesium oxide 400 mg (241.3 mg 400 mg PO DAILY 01/23/22 01/29/22 History magnesium) tablet pantoprazole 40 mg tablet,delayed 40 mg PO DAILY 01/23/22 01/29/22 History release ascorbic acid (vitamin C) 500 mg 500 mg PO DAILY 01/29/22 01/29/22 History chewable tablet (Acerola C) Allergies Allergy/AdvReac Type Severity Reaction Status Date / Time No Known Drug Allergies Allergy Verified 01/29/22 10:33 Exam Narrative: Exam Narrative: General: No acute distress. Awake alert oriented x3. Voice a little muffled. Morbidly obese. HEENT: Normocephalic atraumatic, pupils equally round and reactive to light and accommodation. Mild scaly erythema on both cheeks, left more than right and on forehead. Oropharynx clear, no erythema, no tonsils visualized, uvula is not inflamed or enlarged. Mucous membranes are moist. No cervical lymphadenopathy, thyromegaly or carotid bruits. No JVD. Cardiovascular: Regular rate and rhythm. Grade 3/6 harsh systolic murmur loudest at the right upper sternal border. Chest: No increased work of breathing. Clear to auscultation bilaterally. No crackles or wheezes. Abdomen: Bowel sounds present. Soft, nondistended, nontender. No hepatosplenomegaly or masses. Extremities: No edema, no cyanosis or clubbing. Skin: No jaundice, no pallor, mild rash on face as above, irregular yellow-brown ecchymosis on right upper arm. Neuro: There are no focal deficits. Romberg is negative. Says he is too weak to move himself from gurney to bed and would not attempt it. Cranial nerves 2-12 are intact. Extraocular movements are full. No nystagmus. No facial asymmetry. Tongue is midline. Peripheral vision and vision are grossly intact. Strength is 5/5 in all 4 extremities. Light touch sensation is intact in face body and extremities. Coordination is intact in upper and lower extremities. Const: Vital Signs, click to edit/add: Vital Signs - 24 hr 01/29/22 10:33 01/29/22 13:00 01/29/22 14:30 Temperature 96.8 F L Pulse Rate [Pulse Oximeter] 85 Respiratory Rate 20 Blood Pressure [Ri ght Upper Arm] 173/64 H 139/66 120/78 Pulse Oximetry 97 Oxygen Delivery Me thod Room Air Hospitalist - H&P: Result Labs Labs: Short CBC 01/29/22 Range/Units 11:40 WBC 4.26 L (4.50-11.00) K/uL Hgb 9.4 L (13.5-17.5) gm/dL Hct 25.5 L (37.0-53.0) % Plt Count 180 (140-440) K/uL BMP 01/29/22 11:40 Sodium 111 L* Potassium 3.9 Chloride 77 L Carbon Dioxide 28 BUN 8 Creatinine 0.6 Glucose 108 Calcium 9.2 Liver Function 01/29/22 Range/Units 11:40 Total Bilirubin 0.6 (0.1-1.5) mg/dL Direct Bilirubin 0.2 (0.0-0.5) mg/dL AST 55 H (12-35) U/L ALT 45 (4-50) U/L Alkaline Phosphatase 75 (40-150) U/L Albumin 3.5 (3.3-5.0) g/dL Ordering Physician: Nora Keller MD Date of Service: 01/29/22 Procedure(s): CT soft tissue neck w con Accession Number(s): [id number] cc: Nora Keller MD; Jose Linares MD~ For Patients: As a result of the Century Cures Act, medical imaging exams and procedure reports are released immediately into your electronic medical record. You may view this report before your referring provider. If you have questions, please contact your health care provider. INDICATION: Difficulty swallowing. Gagging. Rule out abscess. TECHNIQUE: Volumetric helical scanning of the neck was performed with 150 cc of Isovue 370 contrast material IV. Coronal and sagittal reconstructions were obtained. COMPARISON: None. FINDINGS: No mass, lymphadenopathy or inflammatory process is identified. The hypopharyngeal/oropharyngeal airway appears to be narrowed, presumably due to palatine tonsil thickening. No abscess is evident. The larynx is unremarkable. The salivary and thyroid glands are within normal limits. No vascular abnormality is demonstrated in the neck. The visualized paranasal and mastoid sinuses are clear. The lung apices are essentially clear. No significant bony abnormality is demonstrated. An enhancing 1.9 x 1.4 x 1.3 cm aneurysm or meningiomas demonstrated in the left anterior suprasellar region. IMPRESSION: 1. Narrowed hypopharyngeal/oropharyngeal airway presumably due to palatine tonsil enlargement. Possible tonsillitis. No abscess evident. 2. 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 Please note that all CT scans at this facility use dose modulation, iterative reconstruction, and/or weight-based dosing when appropriate to reduce radiation dose to as low as reasonably achievable. Dictated by Rigoberto Elias MD @ 01/29/2022 1:47:13 PM (Electronically Signed) Assessment and Plan Assessment and plan (1) Hyponatremia: Problem comment: Na 111, symptomatic with weakness and nausea, no confusion or seizures. Status: Acute Assessment and Plan: Suspect combination of HCTZ, bactrim and drinking extra water. Has completed course of bactrim. Hold HCTZ. Start oral free water restriction. Will order serum osm, urine osm, urine Na. Give hypertonic saline boluses and recheck Na after about 100 cc given. Aim for increase of 6-8 mmol/L of Na today. Hold hypertonic saline when this has been acheived for today. (2) Weakness: Problem comment: Suspect due to hyponatremia Status: Acute Assessment and Plan: PT and OT (3) Nausea: Problem comment: Suspect due to hyponatremia Status: Acute Assessment and Plan: Ondansetron prn. (4) Microcytic anemia: Problem comment: 01/29/22: Hgb 9.4, MCV 79. Hgb 11.5 on 01/10/22 Status: Acute Assessment and Plan: No source of bleeding identified. Guaiac stool in ER reported as negative. No indication for transfusion. Monitor. Obtain iron studies. Consider oral iron when no longer nauseous. Will need outpatient investigation with colonoscopy/EGD. (5) Seborrhea of face: Status: Acute Assessment and Plan: Start ketoconazole cream. (6) Episode of gagging: Status: Acute Assessment and Plan: CT neck reviewed. I do not see clinical evidence of tonsilitis. No throat pain. Hold off on antibiotics. Continue PPI. I suspect this is likely secondary to nausea from hyponatremia. Monitor to see if this resolves as hyponatremia improves. (7) Diarrhea: Problem comment: Since taking bactrim Status: Acute Assessment and Plan: Check for c.diff. Start lactobacillus. 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 Status: Acute Assessment and Plan: Outpatient MRI and referral to neuro.
[2022-01-29 15:35] LABS: Sodium* 112 mmol/L (135-149)
--- NOTE | 2022-01-29 19:23 | PC.NURSE ---
Admission-- Pleasant and cooperative, alert and oriented patient was admitted to med-surg via cart at approximately 1430. VSS and pt is afebrile. SPO2 maintained >90% on RA. He denied any pain. LS CTA. BS+ x4, he denied nausea and ate roughly 50% of a regular diabetic diet. Pt had 1 loose dark, mucousy BM this evening and sample was sent to lab. Blood sugar prior to dinner was 79. Telemetry showed NSR with 1st degree AV block and was dc'd upon arrival. Pronounced known murmur. He was up to the BR with 1 assist, belt and walker and tolerated it well. Family was at bedside this evening and appear loving and supportive. Report to CHRIS Betts.
[2022-01-29 19:45] LABS: Appearance Urine Clear (Clear); Bilirubin Urine Negative (Negative); Blood Urine Trace-intact (Negative); Color Urine Yellow (Yellow); Glucose Urine Negative (Negative); Ketones Urine 2+ (Negative); Leukocyte Esterase Urine Negative (Negative); Nitrite Urine Negative (Negative); Protein Urine Negative (Negative); Urobilinogen Urine 0.2 (0.2-1.0); pH Urine 5.5 (5.0-8.5)
[2022-01-29 19:54] LABS: RBC Urine 0-2 (0-2); Squamous Epithelial Cell Urine Few (None-Few); WBC Urine 0-2 (0-5)
[2022-01-29 20:32] LABS: C.Difficile Negative (Negative); CDIFFEPI 027 Presumptive Negative (Negative)
[2022-01-29 20:42] LABS: Sodium* 112 mmol/L (135-149)
[2022-01-29] MEDS: METFORMIN 1,000 MG TABLET 1000 MG PO (21:01)
[2022-01-29] MEDS: APIXABAN 5 MG TABLET PO (21:02)
[2022-01-30] VITALS (7 sets, daily range): BP systolic 99–155; BP diastolic 42–79; PULSE 61–69; RESP 16–20; TEMP 36.4–37.1; O2SAT 92–98
[2022-01-30 01:05] LABS: Sodium* 113 mmol/L (135-149)
--- NOTE | 2022-01-30 01:14 | PC.NURSE ---
Critical lab of Na 113 called to Augie Mar, orders received to continue with fluid restrictions, no additional interventions at the moment.
--- NOTE | 2022-01-30 06:25 | PC.NURSE ---
Shift note: Pt denies pain, ambulates with SBA/1 and walker, gait is steady. No c/o nausea overnight, no c/o lightheadedness or dizziness. Urine color is dark pink
[2022-01-30 06:46] LABS: Basophils Percent Auto 0.5 % (0.0-3.0); Eosinophils Percent Auto 4.3 % (0.0-7.0); Hematocrit 25.7 % (37.0-53.0); Hemoglobin* 9.3 gm/dL (13.5-17.5); Immature Granulocytes Abs Auto 0.01 K/uL (0.00-0.30); Lymphocytes Percent Auto 36.7 % (20-44); Mean Corpuscular HGB Conc 36 gm/dL (32-36); Mean Corpuscular Hemoglobin 29 pg (26-34); Mean Corpuscular Volume 81 fL (80-100); Monocytes Percent Auto 11.4 % (0.0-11.0); Neutrophils Percent Auto 46.9 % (42.0-72.0); Platelet Count* 158 K/uL (140-440); RDW Coefficient of Variation % 13.4 % (11.5-15.5); Red Blood Count 3.19 m/uL (4.30-5.90); White Blood Count* 4.22 K/uL (4.50-11.00)
[2022-01-30 07:01] LABS: Chloride* 81 mmol/L (96-114); Potassium* 3.4 mmol/L (3.6-5.1)
[2022-01-30 07:04] LABS: Blood Urea Nitrogen* 7 mg/dL (7-30); Carbon Dioxide* 26 mmol/L (20-32); Creatinine* 0.7 mg/dL (0.5-1.5); Estimated Glomerular Filt Rate 98 ml/min; Glucose* 84 mg/dL (60-115)
[2022-01-30 07:11] LABS: Slide Review Reflex No
[2022-01-30 07:15] LABS: Sodium* 115 mmol/L (135-149)
[2022-01-30 07:16] LABS: Iron* 49 ug/dL (49-181)
[2022-01-30 07:25] LABS: Percent Iron Saturation 18 % (20-50); Total Iron Binding Capacity 271 ug/dL (261-462)
--- NOTE | 2022-01-30 07:42 | PC.NURSE ---
Critical value reported by lab - Sodium 115, Dr. Nina notified.
[2022-01-30 07:53] LABS: Vitamin B12* 805 pg/mL (243-894)
[2022-01-30] MEDS: LACTOBACILLUS ACIDOPHILUS 1 TABLET 1 TAB PO ×3 (08:08→18:39)
--- NOTE | 2022-01-30 09:51 | P.IMPN_ITS ---
Progress Note: A&P Assessment and plan (1) Hyponatremia: Problem details: Na 111 on admission, symptomatic with weakness and nausea, no confusion or seizures. Status: Acute Assessment and Plan: - continue slow hypertonic saline infusion and close monitoring of sodium to ensure appropriate rate of correction - continue to hold home dose of HCTZ (2) Microcytic anemia: Problem details: 01/29/22: Hgb 9.4, MCV 79. Outpatient baseline Hgb 11. Patient scheduled for outpatient colonoscopy on 02/06/2022. Status: Acute Assessment and Plan: - continue to follow Hgb, no evidence of acute bleeding - followup with outpatient colonoscopy as scheduled (3) Aortic stenosis: Problem details: ECHO 08/20/2014: Aortic valve is calcified, moderate stenosis and mild to moderate regurgitation. Angiogram 08/28/2014: mild . 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 Was scheduled for colonoscopy in August 2021, but deferred until January. - discussed the importance of colonoscopy follow-up given intermittent diarrhea and microcytic anemia of unknown origin. 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 Status: Acute Assessment and Plan: - patient has history of a pituitary adenoma, surgically resected in 2016. Sees Neurology as an outpatient. - I have asked Radiology to review CT performed 01/29 and compare it to MRI from August 2021. (6) Atrial arrhythmia: Problem details: Hospitalized for this in December at [facility]. Status: Acute Assessment and Plan: - Quiescent. Will see Cardiology as an outpatient. Continue Eliquis. Plan - per above - Continue Eliquis for ppx - plans to discharge home independently when Sodium and clinical status are stable Time Spent With Patient Total time spent: 45, greater than 50% in chart review and review of medical history Subjective Date Seen: 01/30/22 Interval history: No acute events overnight. Patient's sodium is rising slowly and appropriately with hypertonic saline, he is tolerating the treatment well. Sulaiman has no concerns for the hospitalist staff. We discussed his suprasellar lesion noted on admission CT scan today; he has a history of pituitary adenoma that was surgically resected in 2017, he sees Neurology as an outpatient regularly. He is also scheduled for outpatient colonoscopy next week given his intermittent diarrhea (recently worsened while on Bactrim) and microcytic anemia. Exam Narrative: Exam Narrative: GEN: Alert and oriented, answering questions appropriately HEENT: Normal external ears, EOMIs bilaterally, no scleral icterus. + right- sided ptosis, chronic per chart review and patient report CV: RRR, 3-4/6 harsh systolic murmur heard best at left sternal border with radiation to bilateral carotids R: LCTA bilaterally without concerning wheezing, rales, or rhonchi Abdomen: Protuberant, nontender to palpation, no masses Ext: wwp, no concerning edema Skin: No concerning skin lesions or rashes on exposed skin Neuro: Nonfocal, no resting tremor, gait not observed Psych: Appropriate Const: Vital Signs, click to edit/add: Vital Signs - 24 hr 01/29/22 10:33 01/29/22 13:00 01/29/22 14:30 Temperature 96.8 F L Pulse Rate [Pulse Oximeter] 85 Respiratory Rate 20 Blood Pressure [Le ft Arm] Blood Pressure [Ri ght Upper Arm] 173/64 H 139/66 120/78 Pulse Oximetry 97 Oxygen Delivery Me thod Room Air 01/29/22 15:27 01/29/22 16:02 01/29/22 17:33 Temperature 96.8 F L Pulse Rate [Pulse Oximeter] 70 Respiratory Rate 20 20 Blood Pressure [Le ft Arm] 121/77 Blood Pressure [Ri ght Upper Arm] Pulse Oximetry 97 97 97 Oxygen Delivery Me thod Room Air Room Air 01/29/22 19:35 01/29/22 23:00 01/29/22 23:00 Temperature 98.8 F 98.8 F Pulse Rate [Pulse Oximeter] 81 81 72 Respiratory Rate 22 20 Blood Pressure [Le ft Arm] 121/67 140/56 H Blood Pressure [Ri ght Upper Arm] Pulse Oximetry 95 94 Oxygen Delivery Me thod Room Air Room Air 01/30/22 04:00 Temperature 98.8 F Pulse Rate [Pulse Oximeter] 68 Respiratory Rate 20 Blood Pressure [Le ft Arm] 144/58 H Blood Pressure [Ri ght Upper Arm] Pulse Oximetry 92 Oxygen Delivery Me thod Room Air Labs Labs: Laboratory Results - last 24 hr 01/29/22 01/29/22 01/29/22 11:40 11:40 11:40 WBC 4.26 L RBC 3.21 L Hgb 9.4 L Hct 25.5 L MCV 79 L MCH 29 MCHC 37 H RDW Coeff of Daniel 13.4 Plt Count 180 Neut % (Auto) 49.6 Lymph % (Auto) 34.0 [place] % (Auto) 11.3 H Eos % (Auto) 4.0 Baso % (Auto) 0.9 Neut # (Auto) 2.10 Lymph # (Auto) 1.40 [place] # (Auto) 0.50 Eos # (Auto) 0.20 Baso # (Auto) 0.00 Abs Immat Gran (auto) 0.01 ESR 53 H Sodium 111 L* Potassium 3.9 Chloride 77 L Carbon Dioxide 28 BUN 8 Creatinine 0.6 Estimated Creat Clear 64.60 Estimated GFR 103 Glucose 108 Lactate Calcium 9.2 Iron TIBC % Saturation Total Bilirubin 0.6 Direct Bilirubin 0.2 AST 55 H ALT 45 Alkaline Phosphatase 75 C-Reactive Protein 0.7 Total Protein 5.5 L Albumin 3.5 Vitamin B12 TSH Urine Color Urine Appearance Urine pH Ur Specific [place] Urine Protein Urine Glucose (UA) Urine Ketones Urine Blood Urine Nitrite Urine Bilirubin Urine Urobilinogen Ur Leukocyte Esterase Urine RBC Urine WBC Ur Squamous Epith Cells Urine Bacteria Stl C.difficile Tox PCR St C. diff Tox Epid 027 SARS-CoV-2 (PCR) Influenza Type A (PCR) Influenza Type B (PCR) RSV (PCR) POC Troponin I 01/29/22 01/29/22 01/29/22 11:40 11:40 11:40 WBC RBC Hgb Hct MCV MCH MCHC RDW Coeff of Daniel Plt Count Neut % (Auto) Lymph % (Auto) [place] % (Auto) Eos % (Auto) Baso % (Auto) Neut # (Auto) Lymph # (Auto) [place] # (Auto) Eos # (Auto) Baso # (Auto) Abs Immat Gran (auto) ESR Sodium Potassium Chloride Carbon Dioxide BUN Creatinine Estimated Creat Clear Estimated GFR Glucose Lactate Calcium Iron TIBC % Saturation Total Bilirubin Direct Bilirubin AST ALT Alkaline Phosphatase C-Reactive Protein Total Protein Albumin Vitamin B12 TSH 1.000 Urine Color Urine Appearance Urine pH Ur Specific [place] Urine Protein Urine Glucose (UA) Urine Ketones Urine Blood Urine Nitrite Urine Bilirubin Urine Urobilinogen Ur Leukocyte Esterase Urine RBC Urine WBC Ur Squamous Epith Cells Urine Bacteria Stl C.difficile Tox PCR St C. diff Tox Epid 027 SARS-CoV-2 (PCR) Negative SARS-CoV-2 Influenza Type A (PCR) Negative PCR FLU A Influenza Type B (PCR) Negative PCR FLU B RSV (PCR) Negative PCR RSV POC Troponin I 01/29/22 01/29/22 01/29/22 12:02 15:13 19:20 WBC RBC Hgb Hct MCV MCH MCHC RDW Coeff of Daniel Plt Count Neut % (Auto) Lymph % (Auto) [place] % (Auto) Eos % (Auto) Baso % (Auto) Neut # (Auto) Lymph # (Auto) [place] # (Auto) Eos # (Auto) Baso # (Auto) Abs Immat Gran (auto) ESR Sodium 112 L* Potassium Chloride Carbon Dioxide BUN Creatinine Estimated Creat Clear Estimated GFR Glucose Lactate Calcium Iron TIBC % Saturation Total Bilirubin Direct Bilirubin AST ALT Alkaline Phosphatase C-Reactive Protein Total Protein Albumin Vitamin B12 TSH Urine Color Yellow Urine Appearance Clear Urine pH 5.5 Ur Specific [place] 1.010 Urine Protein Negative Urine Glucose (UA) Negative Urine Ketones 2+ A Urine Blood Trace-intact A Urine Nitrite Negative Urine Bilirubin Negative Urine Urobilinogen 0.2 Ur Leukocyte Esterase Negative Urine RBC 0-2 Urine WBC 0-2 Ur Squamous Epith Cells Few Urine Bacteria None Stl C.difficile Tox PCR St C. diff Tox Epid 027 SARS-CoV-2 (PCR) Influenza Type A (PCR) Influenza Type B (PCR) RSV (PCR) POC Troponin I 0.00 L 01/29/22 01/29/22 01/30/22 19:20 20:08 00:25 WBC RBC Hgb Hct MCV MCH MCHC RDW Coeff of Daniel Plt Count Neut % (Auto) Lymph % (Auto) [place] % (Auto) Eos % (Auto) Baso % (Auto) Neut # (Auto) Lymph # (Auto) [place] # (Auto) Eos # (Auto) Baso # (Auto) Abs Immat Gran (auto) ESR Sodium 112 L* 113 L* Potassium Chloride Carbon Dioxide BUN Creatinine Estimated Creat Clear Estimated GFR Glucose Lactate Calcium Iron TIBC % Saturation Total Bilirubin Direct Bilirubin AST ALT Alkaline Phosphatase C-Reactive Protein Total Protein Albumin Vitamin B12 TSH Urine Color Urine Appearance Urine pH Ur Specific [place] Urine Protein Urine Glucose (UA) Urine Ketones Urine Blood Urine Nitrite Urine Bilirubin Urine Urobilinogen Ur Leukocyte Esterase Urine RBC Urine WBC Ur Squamous Epith Cells Urine Bacteria Stl C.difficile Tox PCR Negative St C. diff Tox Epid 027 Presumptive Negative SARS-CoV-2 (PCR) Influenza Type A (PCR) Influenza Type B (PCR) RSV (PCR) POC Troponin I 01/30/22 01/30/22 01/30/22 06:35 06:35 06:35 WBC 4.22 L RBC 3.19 L Hgb 9.3 L Hct 25.7 L MCV 81 MCH 29 MCHC 36 RDW Coeff of Daniel 13.4 Plt Count 158 Neut % (Auto) 46.9 Lymph % (Auto) 36.7 [place] % (Auto) 11.4 H Eos % (Auto) 4.3 Baso % (Auto) 0.5 Neut # (Auto) 2.00 Lymph # (Auto) 1.50 [place] # (Auto) 0.50 Eos # (Auto) 0.20 Baso # (Auto) 0.00 Abs Immat Gran (auto) 0.01 ESR Sodium 115 L* Potassium 3.4 L Chloride 81 L Carbon Dioxide 26 BUN 7 Creatinine 0.7 Estimated Creat Clear 64.60 Estimated GFR 98 Glucose 84 Lactate Calcium 9.0 Iron 49 TIBC 271 % Saturation 18 L Total Bilirubin Direct Bilirubin AST ALT Alkaline Phosphatase C-Reactive Protein Total Protein Albumin Vitamin B12 805 TSH Urine Color Urine Appearance Urine pH Ur Specific [place] Urine Protein Urine Glucose (UA) Urine Ketones Urine Blood Urine Nitrite Urine Bilirubin Urine Urobilinogen Ur Leukocyte Esterase Urine RBC Urine WBC Ur Squamous Epith Cells Urine Bacteria Stl C.difficile Tox PCR St C. diff Tox Epid 027 SARS-CoV-2 (PCR) Influenza Type A (PCR) Influenza Type B (PCR) RSV (PCR) POC Troponin I
[2022-01-30] MEDS: APIXABAN 5 MG TABLET PO ×2 (10:03→21:04)
[2022-01-30] MEDS: ASCORBIC ACID 500 MG TABLET PO (10:03)
[2022-01-30] MEDS: ATORVASTATIN CALCIUM 40 MG TABLET PO (10:03)
[2022-01-30] MEDS: MAGNESIUM OXIDE 400 MG TABLET PO (10:04)
[2022-01-30] MEDS: METOPROLOL SUCCINATE (XL) 50 MG TAB PO (10:04)
[2022-01-30] MEDS: METFORMIN 1,000 MG TABLET 1000 MG PO ×2 (10:04→21:04)
[2022-01-30] MEDS: OMEPRAZOLE 20 MG CAPSULE DR 40 MG PO (10:05)
[2022-01-30] MEDS: TAMSULOSIN HCL 0.4 MG CAPSULE PO (10:05)
[2022-01-30] MEDS: CITALOPRAM HYDROBROMIDE 20 MG TABLET 10 MG PO (12:14)
[2022-01-30 13:07] LABS: Sodium* 115 mmol/L (135-149)
[2022-01-30] MEDS: POTASSIUM BICARB 25 MEQ EFFERVESCENT TAB PO (14:02)
--- NOTE | 2022-01-30 19:06 | PC.NURSE ---
shift [id number] Pt this shift calm and cooperative. Up to bathroom and recliner with SB assist using walker and gait belt. Speech slow but understandable. Pt alert and oriented. Denies nausea. Ate breakfast and dinner and declined lunch. Maintaining fluid restrictions. 3% sodium fluids running 30ml /hr, IV site asymptomatic. ECHO done today
[2022-01-30 20:59] LABS: Sodium* 116 mmol/L (135-149)
[2022-01-31] VITALS (7 sets, daily range): BP systolic 108–140; BP diastolic 49–58; PULSE 64–78; RESP 16–18; TEMP 36.1–36.6; O2SAT 92–97
[2022-01-31 00:03] LABS: Sodium* 119 mmol/L (135-149)
--- NOTE | 2022-01-31 05:33 | PC.NURSE ---
Shift Note 23-: pt pleasant and cooperative, VSS, afebrile, urinal at bedside, CPAP in use @ bedside. Serum Na+ levels trending up.
[2022-01-31 08:00] LABS: Basophils Percent Auto 0.7 % (0.0-3.0); Eosinophils Percent Auto 4.6 % (0.0-7.0); Hematocrit 25.6 % (37.0-53.0); Hemoglobin* 9.1 gm/dL (13.5-17.5); Immature Granulocytes Abs Auto 0.01 K/uL (0.00-0.30); Lymphocytes Percent Auto 32.9 % (20-44); Mean Corpuscular HGB Conc 36 gm/dL (32-36); Mean Corpuscular Hemoglobin 29 pg (26-34); Mean Corpuscular Volume 82 fL (80-100); Monocytes Percent Auto 8.4 % (0.0-11.0); Neutrophils Percent Auto 53.2 % (42.0-72.0); Platelet Count* 155 K/uL (140-440); RDW Coefficient of Variation % 13.6 % (11.5-15.5); Red Blood Count 3.14 m/uL (4.30-5.90); White Blood Count* 4.38 K/uL (4.50-11.00)
[2022-01-31 08:10] LABS: Slide Review Reflex No
[2022-01-31 08:17] LABS: Chloride* 87 mmol/L (96-114)
[2022-01-31 08:18] LABS: Albumin* 3.6 g/dL (3.3-5.0); Potassium* 3.5 mmol/L (3.6-5.1)
[2022-01-31 08:20] LABS: Bilirubin Total* 0.3 mg/dL (0.1-1.5); Carbon Dioxide* 26 mmol/L (20-32); Creatinine* 0.5 mg/dL (0.5-1.5); Estimated Glomerular Filt Rate 108 ml/min
[2022-01-31 08:21] LABS: Alanine Aminotransferase* 37 U/L (4-50); Alkaline Phosphatase* 85 U/L (40-150); Aspartate Amino Transferase* 44 U/L (12-35); Blood Urea Nitrogen* 8 mg/dL (7-30); Glucose* 85 mg/dL (60-115); Total Protein* 6.2 g/dL (6.0-8.3)
[2022-01-31 08:24] LABS: Sodium* 119 mmol/L (135-149)
--- NOTE | 2022-01-31 08:51 | PC.NURSE ---
Critical sodium 119. Dr. Russo aware.
[2022-01-31 09:20] LABS: Magnesium* 1.3 mg/dL (1.5-2.6)
[2022-01-31] MEDS: CITALOPRAM HYDROBROMIDE 20 MG TABLET 10 MG PO (09:27)
[2022-01-31] MEDS: METOPROLOL SUCCINATE (XL) 50 MG TAB PO (09:27)
[2022-01-31] MEDS: MAGNESIUM OXIDE 400 MG TABLET PO (09:27)
[2022-01-31] MEDS: METFORMIN 1,000 MG TABLET 1000 MG PO ×2 (09:27→21:03)
[2022-01-31] MEDS: TAMSULOSIN HCL 0.4 MG CAPSULE PO (09:27)
[2022-01-31] MEDS: APIXABAN 5 MG TABLET PO ×2 (09:27→21:02)
[2022-01-31] MEDS: LACTOBACILLUS ACIDOPHILUS 1 TABLET 1 TAB PO ×3 (09:27→17:39)
[2022-01-31] MEDS: OMEPRAZOLE 20 MG CAPSULE DR 40 MG PO (09:27)
[2022-01-31] MEDS: ATORVASTATIN CALCIUM 40 MG TABLET PO (09:27)
[2022-01-31] MEDS: ASCORBIC ACID 500 MG TABLET PO (09:28)
--- NOTE | 2022-01-31 09:38 | PM.IMPN1 ---
Progress Note: A&P Assessment and plan (1) Hyponatremia: Problem details: Na 111 on admission, symptomatic with weakness and nausea, no confusion or seizures. Outpatient Na: 134 on 01/17/22 Status: Acute Assessment and Plan: Hyponatremia presumably from increased free water intake (patient had stomach upset and and diarrhea from recent course of Bactrim, was pushing water secondary to symptoms), in addition to an iatrogenic component given home dose of hydrochlorothiazide. Sodium slowly improving with fluid restriction and slow infusion of hypertonic saline. Continue close monitoring of Sodium to ensure that correction is not too rapid. (2) Aortic stenosis: Problem details: TTE 01/30/2022 Final Impressions: 1. Technically limited exam. 2. Normal LV size, moderately increased wall thickness, normal global systolic function with an estimated EF of 70 - 75%. 3. There is SANDRA with resting LVOT PG of 29 mmHg, increased to 86 mmHg with Valsalva. Findings suggestive of HOCM. 4. Right ventricular cavity size is normal, global systolic RV function is normal. 5. Severely enlarged left atrium. 6. The aortic valve is calcified, mild-moderate stenosis and moderate regurgitation. The aortic valve peak velocity is 3.6 m/s, the peak gradient is 53 mmHg, and the mean gradient is 35 mmHg. The aortic valve area is 1.79 cm?? with a dimensionless index of 0.45. The stroke volume index is 59.8 ml/m??. 7. The mitral valve is sclerotic. Mean gradient 5.3 mmHg at HR 64 bpm. 8. Based on the echo findings, consider cardiac MRI and Cardiology Consult. Status: Acute Assessment and Plan: TTE performed 01/30, results above. Reviewed the case with Dr. You, Panel Flow Machine Operator at [facility]. Patient has a referral from his PCP to see Cardiology as an outpatient, she recommends keeping this appointment to discuss further workup of findings on TTE. Continue telemetry given recent hospitalization at [facility] for rhythm abnormality (atrial tachycardia versus a flutter, neither has recurred during this hospitalization). (3) Microcytic anemia: Problem details: 01/29/22: Hgb 9.4, MCV 79. Outpatient baseline Hgb 11. Patient scheduled for outpatient colonoscopy on 02/06/2022. Status: Acute Assessment and Plan: No evidence of acute bleeding, continue to follow Hgb. 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 Patient has a known history of pituitary lesion, post resection in 2017. Sees Neurosurgery as an outpatient. Status: Acute Assessment and Plan: Noted incidentally on admission imaging (soft tissue neck CT performed for gagging episodes). (5) Weakness: Problem details: Suspect due to hyponatremia Status: Acute Assessment and Plan: Appreciate input from OT and PT. Patient may require SNF stay upon discharge, awaiting to see if weakness improves as Sodium normalizes. Plan - per above - continue Apixaban for ppx (started during 12/2021 hospitalization at [facility] for arrhythmia) Time Spent With Patient Total time spent: 45, >50% in updates to patient, review of case with care team/specialists, care coordination. Subjective Date Seen: 01/31/22 Interval history: Sulaiman has no concerns for the hospitalist team this morning. He is tolerating po intake, gagging concerns from admission are improving. There was a 3mmol/L increase in sodium over a 3 hour period yesterday evening, so 3%NaCl was held overnight. Sodium did not change overnight. Patient tolerating fluid restriction. Exam Narrative: Exam Narrative: GEN: Alert and oriented, sitting comfortably in bedside chair and answering questions appropriately HEENT: Normal external ears, EOMIs bilaterally, no scleral icterus. Poor dentition without signs of acute infection. + right-sided ptosis, chronic/baseline CV: RRR, 3-4/6 harsh systolic murmur heard best at left sternal border with radiation to bilateral carotids, unchanged R: LCTA bilaterally without concerning wheezing, rales, or rhonchi Abdomen:? Protuberant, nontender to palpation, no masses Ext: wwp, no concerning edema Skin: No concerning skin lesions or rashes on exposed skin Neuro: Nonfocal, no resting tremor, gait not observed Psych: Appropriate Const: Vital Signs, click to edit/add: Vital Signs - 24 hr 01/30/22 11:00 01/30/22 15:00 01/30/22 15:00 Temperature Pulse Rate [Pulse Oximeter] 61 66 66 Respiratory Rate 18 18 18 Blood Pressure [Le ft Arm] 115/61 99/49 L Pulse Oximetry 98 93 Oxygen Delivery Me thod Room Air Room Air 01/30/22 16:00 01/30/22 19:00 01/30/22 23:00 Temperature 97.6 F 98.0 F Pulse Rate [Pulse Oximeter] 68 69 Respiratory Rate 18 16 Blood Pressure [Le ft Arm] 116/42 L 116/43 L Pulse Oximetry 93 95 93 Oxygen Delivery Me thod Room Air Room Air 01/30/22 23:00 01/31/22 03:00 Temperature Pulse Rate [Pulse Oximeter] 69 Respiratory Rate 16 16 Blood Pressure [Le ft Arm] Pulse Oximetry 92 Oxygen Delivery Me thod Room Air Labs Labs: Laboratory Results - last 24 hr 01/30/22 01/30/22 01/30/22 11:48 20:25 23:30 WBC RBC Hgb Hct MCV MCH MCHC RDW Coeff of Daniel Plt Count Neut % (Auto) Lymph % (Auto) [place] % (Auto) Eos % (Auto) Baso % (Auto) Neut # (Auto) Lymph # (Auto) [place] # (Auto) Eos # (Auto) Baso # (Auto) Abs Immat Gran (auto) Sodium 115 L* 116 L* 119 L* Potassium Chloride Carbon Dioxide BUN Creatinine Estimated Creat Clear Estimated GFR Glucose Calcium Magnesium Total Bilirubin AST ALT Alkaline Phosphatase Total Protein Albumin 01/31/22 01/31/22 07:46 07:46 WBC 4.38 L RBC 3.14 L Hgb 9.1 L Hct 25.6 L MCV 82 MCH 29 MCHC 36 RDW Coeff of Daniel 13.6 Plt Count 155 Neut % (Auto) 53.2 Lymph % (Auto) 32.9 [place] % (Auto) 8.4 Eos % (Auto) 4.6 Baso % (Auto) 0.7 Neut # (Auto) 2.30 Lymph # (Auto) 1.40 [place] # (Auto) 0.40 Eos # (Auto) 0.20 Baso # (Auto) 0.00 Abs Immat Gran (auto) 0.01 Sodium 119 L* Potassium 3.5 L Chloride 87 L Carbon Dioxide 26 BUN 8 Creatinine 0.5 Estimated Creat Clear 64.60 Estimated GFR 108 Glucose 85 Calcium 9.0 Magnesium 1.3 L Total Bilirubin 0.3 AST 44 H ALT 37 Alkaline Phosphatase 85 Total Protein 6.2 Albumin 3.6
--- NOTE | 2022-01-31 10:04 | NUTR.NU ---
ANGÉLICAN with diet education related to hx Diabetes. RDN visited with patient whom agreed to visit without designated caregiver present. Patient reported he follows a diabetic diet at home, which has been going well. RDN offered diet education related to diabetes, however patient declined at this time. Patient declined taking educational materials home as well. RDN encouraged patient to let staff know if he has questions of would like diet education. RDN to continue to monitor and follow up as needed.
[2022-01-31] MEDS: POTASSIUM BICARB 25 MEQ EFFERVESCENT TAB PO ×2 (11:58→17:39)
[2022-01-31] MEDS: MAGNESIUM IV 2 GM/50 ML PIGGYBACK IVPB (12:25)
[2022-01-31 12:47] LABS: Sodium* 121 mmol/L (135-149)
[2022-01-31] MEDS: SODIUM CHLORIDE 1 GM TABLET PO ×2 (13:21→17:39)
[2022-01-31 21:46] LABS: Urine Osmolality 352 mOsm/kg
[2022-01-31 22:12] LABS: Sodium* 121 mmol/L (135-149)
[2022-02-01] VITALS (7 sets, daily range): BP systolic 111–129; BP diastolic 43–63; PULSE 65–72; RESP 16–20; TEMP 36.5–37.1; O2SAT 95–100
[2022-02-01 00:08] LABS: Hours Collected Random hr; Total Volume Random mL
[2022-02-01] MEDS: ACETAMINOPHEN 325 MG TABLET 650 MG PO ×2 (02:32→11:04)
[2022-02-01 06:26] LABS: Basophils Absolute Auto 0.03 K/uL (0.00-0.30); Basophils Percent Auto 0.6 % (0.0-3.0); Eosinophils Percent Auto 6.1 % (0.0-7.0); Hematocrit 25.4 % (37.0-53.0); Lymphocytes Absolute Auto 1.69 K/uL (0.90-2.90); Lymphocytes Percent Auto 34.3 % (20-44); Mean Corpuscular HGB Conc 35 gm/dL (32-36); Mean Corpuscular Hemoglobin 29 pg (26-34); Mean Corpuscular Volume 82 fL (80-100); Monocytes Percent Auto 9.8 % (0.0-11.0); Neutrophils Absolute Auto 2.42 K/uL (1.7-7.0); Neutrophils Percent Auto 49.2 % (42.0-72.0); Platelet Count* 150 K/uL (140-440); RDW Coefficient of Variation % 13.7 % (11.5-15.5); Red Blood Count 3.09 m/uL (4.30-5.90); White Blood Count* 4.92 K/uL (4.50-11.00)
[2022-02-01 06:41] LABS: Slide Review Reflex No
[2022-02-01 06:44] LABS: Albumin* 3.4 g/dL (3.3-5.0); Chloride* 89 mmol/L (96-114)
[2022-02-01 06:45] LABS: Potassium* 3.8 mmol/L (3.6-5.1)
[2022-02-01 06:47] LABS: Alanine Aminotransferase* 30 U/L (4-50); Alkaline Phosphatase* 82 U/L (40-150); Aspartate Amino Transferase* 34 U/L (12-35); Bilirubin Total* 0.3 mg/dL (0.1-1.5); Blood Urea Nitrogen* 8 mg/dL (7-30); Carbon Dioxide* 27 mmol/L (20-32); Creatinine* 0.5 mg/dL (0.5-1.5); Estimated Glomerular Filt Rate 108 ml/min; Glucose* 117 mg/dL (60-115); Total Protein* 5.9 g/dL (6.0-8.3)
[2022-02-01 06:48] LABS: Calcium* 8.9 mg/dL (8.4-10.6); Magnesium* 1.4 mg/dL (1.5-2.6); Sodium* 122 mmol/L (135-149)
--- NOTE | 2022-02-01 06:59 | PC.NURSE ---
CRITICAL SODIUM OF 122, IMPROVED FROM YESTERDAY OF 121, UPDATED PT'S RN.
--- NOTE | 2022-02-01 07:04 | PC.NURSE ---
Shift Note -: Pt pleasant and cooperative, VSS, afebrile. Pt had an unremarkable night, sleeping for most of it, waking up requesting Tylenol once. See eMAR for medication administration
[2022-02-01] MEDS: LACTOBACILLUS ACIDOPHILUS 1 TABLET 1 TAB PO ×3 (07:59→17:50)
[2022-02-01] MEDS: POTASSIUM BICARB 25 MEQ EFFERVESCENT TAB PO ×3 (07:59→17:51)
[2022-02-01] MEDS: SODIUM CHLORIDE 1 GM TABLET PO ×3 (07:59→17:50)
[2022-02-01] MEDS: METFORMIN 1,000 MG TABLET 1000 MG PO ×2 (08:48→20:57)
[2022-02-01] MEDS: ATORVASTATIN CALCIUM 40 MG TABLET PO (08:48)
[2022-02-01] MEDS: METOPROLOL SUCCINATE (XL) 50 MG TAB PO (08:48)
[2022-02-01] MEDS: ASCORBIC ACID 500 MG TABLET PO (08:48)
[2022-02-01] MEDS: TAMSULOSIN HCL 0.4 MG CAPSULE PO (08:48)
[2022-02-01] MEDS: APIXABAN 5 MG TABLET PO ×2 (08:48→20:57)
[2022-02-01] MEDS: CITALOPRAM HYDROBROMIDE 20 MG TABLET 10 MG PO (08:48)
[2022-02-01] MEDS: OMEPRAZOLE 20 MG CAPSULE DR 40 MG PO (08:48)
[2022-02-01] MEDS: MAGNESIUM OXIDE 400 MG TABLET PO (08:48)
--- NOTE | 2022-02-01 11:21 | PC.SOCIAL ---
Per therapy and physician pt. may need placement for short-term rehab. Pt. is over the weight limit for all facilities in [place]. [facility] has openings and is able to assess.
[2022-02-01] MEDS: FUROSEMIDE 10 MG/ML inj 20 MG IVP (11:26)
[2022-02-01] MEDS: MAGNESIUM SULFATE 2 GM/50 ML PIGGYBACK IVPB (11:27)
--- NOTE | 2022-02-01 11:51 | P.IMPN_ITS ---
Progress Note: A&P Assessment and plan (1) Hyponatremia: Problem details: Na 111 on admission, symptomatic with weakness and nausea, no confusion or seizures. Causing metabolic encephalopathy. Very slowly improving. Likely due to hydrochlorothiazide and Bactrim Outpatient Na: 134 on 01/17/22 Status: Acute Assessment and Plan: 1 dose furosemide today for managing fluid status and to see if it will help correct hyponatremia (2) Aortic stenosis: Problem details: TTE 01/30/2022 Final Impressions: 1. Technically limited exam. 2. Normal LV size, moderately increased wall thickness, normal global systolic function with an estimated EF of 70 - 75%. 3. There is SANDRA with resting LVOT PG of 29 mmHg, increased to 86 mmHg with Va lsalva. Findings suggestive of HOCM. 4. Right ventricular cavity size is normal, global systolic RV function is normal. 5. Severely enlarged left atrium. 6. The aortic valve is calcified, mild-moderate stenosis and moderate regurgitation. The aortic valve peak velocity is 3.6 m/s, the peak gradient is 53 mmHg, and the mean gradient is 35 mmHg. The aortic valve area is 1.79 cm?? with a dimensionless index of 0.45. The stroke volume index is 59.8 ml/m??. 7. The mitral valve is sclerotic. Mean gradient 5.3 mmHg at HR 64 bpm. 8. Based on the echo findings, consider cardiac MRI and Cardiology Consult. Status: Acute (3) Microcytic anemia: Problem details: 01/29/22: Hgb 9.4, MCV 79. Outpatient baseline Hgb 11. Patient scheduled for outpatient colonoscopy on 02/06/2022. 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 Patient has a known history of pituitary lesion, post resection in 2017. Sees Neurosurgery as an outpatient. Status: Acute (5) Weakness: Problem details: Suspect due to hyponatremia Status: Acute (6) Metabolic encephalopathy: Problem details: Due to severe hyponatremia. Much improved. Status: Acute (7) Hypomagnesemia: Problem details: Replace Status: Acute Subjective Date Seen: 02/01/22 Interval history: 72-year-old male seen in followup of hospital admission for hyponatremia, metabolic encephalopathy, weakness. Patient reports that he is brain fog is better. He reports no shortness of breath. He has been able to eat normally. He has no new concerns today. He still feels profoundly weak. Exam Narrative: Exam Narrative: He is alert and in no distress. He is able to carry on a conversation he is oriented to his circumstances. Respirations are clear to auscultation. Cardiovascular: S1, S2, 2/6 systolic ejection murmur heard across the precordiu m. Regular rate and rhythm. Abdomen is soft without tenderness or mass. Extremities with trace edema. Moves all 4 extremities well. Const: Vital Signs, click to edit/add: Vital Signs - 24 hr 01/31/22 15:00 01/31/22 15:00 01/31/22 16:00 Temperature 97.8 F Pulse Rate [Pulse Oximeter] 64 72 Respiratory Rate 18 18 Blood Pressure [Le ft Arm] 108/49 L Pulse Oximetry 96 93 Oxygen Delivery Me thod Room Air 01/31/22 19:00 01/31/22 23:54 01/31/22 23:54 Temperature 97.8 F Pulse Rate [Pulse Oximeter] 78 74 74 Respiratory Rate 18 16 16 Blood Pressure [Le ft Arm] 126/58 L 126/55 L Pulse Oximetry 96 97 Oxygen Delivery Me thod Room Air Room Air 02/01/22 02:56 02/01/22 08:00 02/01/22 08:00 Temperature 98.7 F 97.7 F Pulse Rate [Pulse Oximeter] 72 65 65 Respiratory Rate 16 18 Blood Pressure [Le ft Arm] 127/51 L 125/43 L Pulse Oximetry 95 95 Oxygen Delivery Me thod Room Air Room Air 02/01/22 11:00 Temperature 98.0 F Pulse Rate [Pulse Oximeter] 66 Respiratory Rate 18 Blood Pressure [Le ft Arm] 127/52 L Pulse Oximetry 100 Oxygen Delivery Me thod Room Air Documenting provider has reviewed patient's vital signs: yes Labs Labs: Laboratory Results - last 24 hr 01/29/22 01/29/22 01/31/22 19:20 19:20 12:17 WBC RBC Hgb Hct MCV MCH MCHC RDW Coeff of Daniel Plt Count Neut % (Auto) Lymph % (Auto) [place] % (Auto) Eos % (Auto) Baso % (Auto) Neut # (Auto) Lymph # (Auto) [place] # (Auto) Eos # (Auto) Baso # (Auto) Abs Immat Gran (auto) Sodium 121 L* Potassium Chloride Carbon Dioxide BUN Creatinine Estimated Creat Clear Estimated GFR Glucose Serum Osmolality 230 L Calcium Magnesium Total Bilirubin AST ALT Alkaline Phosphatase Total Protein Albumin Ur Random Osmolality 352 Ur Creatinine per Vol 59 Ur Creatinine 24 Hour Not Applicable U Collection Duration Random Urine Total Volume Random Ur Sodium per Vol 36 Ur Sodium mmol/Day Not Applicable 01/31/22 02/01/22 02/01/22 21:16 06:00 06:00 WBC 4.92 RBC 3.09 L Hgb 9.0 L Hct 25.4 L MCV 82 MCH 29 MCHC 35 RDW Coeff of Daniel 13.7 Plt Count 150 Neut % (Auto) 49.2 Lymph % (Auto) 34.3 [place] % (Auto) 9.8 Eos % (Auto) 6.1 Baso % (Auto) 0.6 Neut # (Auto) 2.42 Lymph # (Auto) 1.69 [place] # (Auto) 0.50 Eos # (Auto) 0.30 Baso # (Auto) 0.03 Abs Immat Gran (auto) 0.00 Sodium 121 L* 122 L* Potassium 3.8 Chloride 89 L Carbon Dioxide 27 BUN 8 Creatinine 0.5 Estimated Creat Clear 64.60 Estimated GFR 108 Glucose 117 H Serum Osmolality Calcium 8.9 Magnesium 1.4 L Total Bilirubin 0.3 AST 34 ALT 30 Alkaline Phosphatase 82 Total Protein 5.9 L Albumin 3.4 Ur Random Osmolality Ur Creatinine per Vol Ur Creatinine 24 Hour U Collection Duration Urine Total Volume Ur Sodium per Vol Ur Sodium mmol/Day
--- NOTE | 2022-02-01 14:54 | PC.NURSE ---
SHIFT REPORT: PATIENT PLEASANT AND COOPERATIVE, UP A1 WITH WALKER AND BELT, HAVING SOME BACK PAIN TODAY THIS IS CHRONIC, RATING IN MINIMAL BEING MANAGED WITH TYLENOL, TOLERATING DIET, IV PATENT.
[2022-02-01 15:16] LABS: Sodium* 124 mmol/L (135-149)
[2022-02-01 22:21] LABS: Sodium* 125 mmol/L (135-149)
--- NOTE | 2022-02-01 22:28 | PC.NURSE ---
Pt. alert and oriented x4, pleasant and cooperative. VSS, afebrile, denies any pain N/V/SOB. Pt. up w/A1, walker and gait belt. Up to chair for meals, family at bedside part of the evening. Pt. IV in right AC, intact and patent.
[2022-02-02] VITALS (7 sets, daily range): BP systolic 94–141; BP diastolic 46–71; PULSE 57–78; RESP 16–24; TEMP 36.4–37.1; O2SAT 94–99
--- NOTE | 2022-02-02 07:01 | PC.NURSE ---
END OF SHIFT NOTE: PT FATIGUED AND ASLEEP WITH CPAP ON ENTIRE SHIFT. COMPLIANT WITH NURSING CARES. TELE READS SINUS MARJORIE WITH 1ST DEGREE HB. PT DENIES CP, SOB, N/V. NO VOIDING THIS SHIFT ([id number]). VSS.
[2022-02-02 07:19] LABS: Chloride* 94 mmol/L (96-114); Potassium* 3.8 mmol/L (3.6-5.1); Sodium* 127 mmol/L (135-149)
[2022-02-02 07:22] LABS: Blood Urea Nitrogen* 12 mg/dL (7-30); Calcium* 8.9 mg/dL (8.4-10.6); Carbon Dioxide* 27 mmol/L (20-32); Creatinine* 0.5 mg/dL (0.5-1.5); Estimated Glomerular Filt Rate 108 ml/min; Glucose* 117 mg/dL (60-115)
[2022-02-02 07:23] LABS: Magnesium* 1.5 mg/dL (1.5-2.6)
[2022-02-02] MEDS: SODIUM CHLORIDE 1 GM TABLET PO ×3 (08:19→17:31)
[2022-02-02] MEDS: LACTOBACILLUS ACIDOPHILUS 1 TABLET 1 TAB PO ×3 (08:19→17:31)
[2022-02-02] MEDS: POTASSIUM BICARB 25 MEQ EFFERVESCENT TAB PO ×2 (08:20→17:31)
[2022-02-02] MEDS: ATORVASTATIN CALCIUM 40 MG TABLET PO (09:49)
[2022-02-02] MEDS: CITALOPRAM HYDROBROMIDE 20 MG TABLET 10 MG PO (09:49)
[2022-02-02] MEDS: ASCORBIC ACID 500 MG TABLET PO (09:49)
[2022-02-02] MEDS: MAGNESIUM OXIDE 400 MG TABLET PO (09:49)
[2022-02-02] MEDS: OMEPRAZOLE 20 MG CAPSULE DR 40 MG PO (09:50)
[2022-02-02] MEDS: METOPROLOL SUCCINATE (XL) 50 MG TAB PO (09:50)
[2022-02-02] MEDS: APIXABAN 5 MG TABLET PO ×2 (09:51→19:51)
[2022-02-02] MEDS: TAMSULOSIN HCL 0.4 MG CAPSULE PO (09:51)
[2022-02-02] MEDS: METFORMIN 1,000 MG TABLET 1000 MG PO ×2 (09:52→19:51)
--- NOTE | 2022-02-02 16:36 | PC.SOCIAL ---
Phone call to Jo in admissions at [facility] [place]. Left a voicemail to follow up on referral for possible admission. Received a phone call from Pt's son, Jamey Trujillo. Jamey was requesting an update on SNF referral for [place]. Provided information on placement. Son states that he would like information sent to [facility] in [place] also. Phone call to [facility] in [place]. Spoke with Ramesh in Admissions. Ramesh states that they would have an opening and will assess pt. Faxed initial information to [facility] Admissions.
--- NOTE | 2022-02-02 16:44 | P.IMPN_ITS ---
Progress Note: A&P Assessment and plan (1) Hyponatremia: Problem details: Na 111 on admission, symptomatic with weakness and nausea, no confusion or seizures. Causing metabolic encephalopathy. Very slowly improving. Likely due to hydrochlorothiazide and Bactrim Outpatient Na: 134 on 01/17/22. Status: Acute (2) Aortic stenosis: Problem details: TTE 01/30/2022 Final Impressions: 1. Technically limited exam. 2. Normal LV size, moderately increased wall thickness, normal global systolic function with an estimated EF of 70 - 75%. 3. There is SANDRA with resting LVOT PG of 29 mmHg, increased to 86 mmHg with Valsalva. Findings suggestive of HOCM. 4. Right ventricular cavity size is normal, global systolic RV function is normal. 5. Severely enlarged left atrium. 6. The aortic valve is calcified, mild-moderate stenosis and moderate regurgitation. The aortic valve peak velocity is 3.6 m/s, the peak gradient is 53 mmHg, and the mean gradient is 35 mmHg. The aortic valve area is 1.79 cm?? w ith a dimensionless index of 0.45. The stroke volume index is 59.8 ml/m??. 7. The mitral valve is sclerotic. Mean gradient 5.3 mmHg at HR 64 bpm. 8. Based on the echo findings, consider cardiac MRI and Cardiology Consult. Status: Acute (3) Microcytic anemia: Problem details: 01/29/22: Hgb 9.4, MCV 79. Outpatient baseline Hgb 11. Patient scheduled for outpatient colonoscopy on 02/06/2022. 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 Patient has a known history of pituitary lesion, post resection in 2017. Sees Neurosurgery as an outpatient. Status: Acute (5) Weakness: Problem details: Suspect due to hyponatremia. Probably will need rehab stay. Status: Acute (6) Metabolic encephalopathy: Problem details: Due to severe hyponatremia. Much improved. Status: Acute (7) Hypomagnesemia: Problem details: Replace Status: Acute Plan Continue in-hospital for 1 more day anticipate continued improvement in the hyponatremia with outpatient followup of that. Hold hydrochlorothiazide and avoid Bactrim. Looking for discharge plan for rehab. Time Spent With Patient Total time spent: Total time spent today is 30 minutes, 20 minutes in coordination care discussing with patient other providers management of hyponatremia and rehab Subjective Date Seen: 02/02/22 Interval history: 72-year-old male seen in followup of hyponatremia, weakness and other medical problems. Today he thinks he is a little bit better. He still moving with difficulties with therapy. He has a good appetite. He reports his brain is clear. Exam Narrative: Exam Narrative: He is alert and pleasant and in no distress. Respirations are clear to auscultation. Cardiovascular: S1, S2, regular rate and rhythm. 2/6 systolic murmur. No gallop or rub. Abdomen: Bowel sounds active. Abdomen is soft without tenderness. Extremities with trace edema bilaterally. Const: Vital Signs, click to edit/add: Vital Signs - 24 hr 02/01/22 19:00 02/01/22 23:00 02/01/22 23:00 Temperature 98.5 F 98.5 F Pulse Rate Pulse Rate [Pulse Oximeter] 67 67 67 Respiratory Rate 18 20 20 Blood Pressure [Le ft Arm] 126/52 L 129/63 Pulse Oximetry 95 96 Oxygen Delivery Me thod Room Air CPAP 02/02/22 03:00 02/02/22 03:00 02/02/22 07:00 Temperature 97.6 F Pulse Rate 59 L 57 L Pulse Rate [Pulse Oximeter] 63 Respiratory Rate 24 Blood Pressure [Le ft Arm] 107/54 L Pulse Oximetry 94 Oxygen Delivery Me thod CPAP 02/02/22 07:00 02/02/22 07:00 02/02/22 11:00 Temperature 97.7 F 98.0 F Pulse Rate Pulse Rate [Pulse Oximeter] 78 78 68 Respiratory Rate 18 18 Blood Pressure [Le ft Arm] 127/71 141/62 H Pulse Oximetry 94 99 Oxygen Delivery Me thod CPAP Room Air CPAP Documenting provider has reviewed patient's vital signs: yes Labs Labs: Laboratory Results - last 24 hr 02/01/22 02/02/22 21:49 06:22 Sodium 125 L 127 L Potassium 3.8 Chloride 94 L Carbon Dioxide 27 BUN 12 Creatinine 0.5 Estimated Creat Clear 64.60 Estimated GFR 108 Glucose 117 H Calcium 8.9 Magnesium 1.5
--- NOTE | 2022-02-02 16:55 | PC.SOCIAL ---
Received a phone call from Jo in Admissions at [facility] [place] [facility]. Jo states that she has not approved or denied pt for admission she is currently waiting on the grinder set up operator surface to review pt information. However, [facility] will not be accepting admissions tomorrow (02-03-2022) due to staffing issues. Jo will keep us updated and will accept admissions again on Sunday (02-06-22). Please keep Jo updated if Pt goes to another facility.
[2022-02-02 19:12] LABS: Folate, Serum 21.3 ng/mL (>=5.9)
--- NOTE | 2022-02-02 19:47 | PC.NURSE ---
PATIENT PLEASANT AND COOPERATIVE, UP SBA WITH WALKER AND BELT TOLERATING FAIRLY, DECLINING PAIN, PATIENT MENTIONED HE WAS VERY SAD THIS MORNING STATING I JUST WANT TO GO HOME, ABLE TO TAKE PATIENT ON A WHEELCHAIR RIDE OUTSIDE TODAY FOR WHICH PATIENT STATED HELPED, TELE SHOWING SINUS RHYTHM WITH A 1ST DEGREE HEART BLOCK, DECLINING NAUSEA VOMITING SOB CP.
[2022-02-03 03:00] VITALS: BP 102/55; PULSE 64; RESP 18; TEMP 36.9; O2SAT 100
--- NOTE | 2022-02-03 05:20 | PC.NURSE ---
[id number] Pt slept well during night, wearing cpap, denies pain,N/V, lightheaded or dizziness.
[2022-02-03 07:00] VITALS: BP 106/71; PULSE 64; RESP 18; TEMP 36.4; O2SAT 95
[2022-02-03 07:02] LABS: Chloride* 96 mmol/L (96-114); Potassium* 4.1 mmol/L (3.6-5.1); Sodium* 129 mmol/L (135-149)
[2022-02-03 07:05] LABS: Blood Urea Nitrogen* 15 mg/dL (7-30); Carbon Dioxide* 29 mmol/L (20-32); Creatinine* 0.5 mg/dL (0.5-1.5); Estimated Glomerular Filt Rate 108 ml/min
[2022-02-03 07:06] LABS: Calcium* 9.3 mg/dL (8.4-10.6); Glucose* 110 mg/dL (60-115)
[2022-02-03] MEDS: ATORVASTATIN CALCIUM 40 MG TABLET PO (09:03)
[2022-02-03] MEDS: TAMSULOSIN HCL 0.4 MG CAPSULE PO (09:06)
[2022-02-03] MEDS: TORSEMIDE 5 MG TABLET 10 MG PO (09:06)
[2022-02-03] MEDS: APIXABAN 5 MG TABLET PO (09:06)
[2022-02-03] MEDS: LACTOBACILLUS ACIDOPHILUS 1 TABLET 1 TAB PO ×2 (09:06→12:10)
[2022-02-03] MEDS: OMEPRAZOLE 20 MG CAPSULE DR 40 MG PO (09:06)
[2022-02-03] MEDS: ASCORBIC ACID 500 MG TABLET PO (09:06)
[2022-02-03] MEDS: MAGNESIUM OXIDE 400 MG TABLET PO (09:06)
[2022-02-03] MEDS: METFORMIN 1,000 MG TABLET 1000 MG PO (09:07)
[2022-02-03] MEDS: CITALOPRAM HYDROBROMIDE 20 MG TABLET 10 MG PO (09:07)
[2022-02-03] MEDS: SODIUM CHLORIDE 1 GM TABLET PO ×2 (09:07→12:10)
[2022-02-03] MEDS: POTASSIUM BICARB 25 MEQ EFFERVESCENT TAB PO (09:08)
[2022-02-03] MEDS: METOPROLOL SUCCINATE (XL) 50 MG TAB PO (09:13)
[2022-02-03 11:00] VITALS: BP 107/46; PULSE 68; RESP 20; TEMP 37; O2SAT 97
--- NOTE | 2022-02-03 13:17 | PM.IMPN1 ---
Progress Note: A&P Assessment and plan (1) Hyponatremia: Problem details: Na 111 on admission, symptomatic with weakness and nausea, no confusion or seizures. Causing metabolic encephalopathy. Gradually improving. Likely due to hydrochlorothiazide and Bactrim. Both should be avoided in the future. Outpatient Na: 134 on 01/17/22. Status: Acute (2) Aortic stenosis: Problem details: TTE 01/30/2022 Final Impressions: 1. Technically limited exam. 2. Normal LV size, moderately increased wall thickness, normal global systolic function with an estimated EF of 70 - 75%. 3. There is SANDRA with resting LVOT PG of 29 mmHg, increased to 86 mmHg with Valsalva. Findings suggestive of HOCM. 4. Right ventricular cavity size is normal, global systolic RV function is normal. 5. Severely enlarged left atrium. 6. The aortic valve is calcified, mild-moderate stenosis and moderate regurgitation. The aortic valve peak velocity is 3.6 m/s, the peak gradient is 53 mmHg, and the mean gradient is 35 mmHg. The aortic valve area is 1.79 cm?? with a dimensionless index of 0.45. The stroke volume index is 59.8 ml/m??. 7. The mitral valve is sclerotic. Mean gradient 5.3 mmHg at HR 64 bpm. 8. Based on the echo findings, consider cardiac MRI and Cardiology Consult. Status: Acute (3) Microcytic anemia: Problem details: 01/29/22: Hgb 9.4, MCV 79. Outpatient baseline Hgb 11. Patient scheduled for outpatient colonoscopy on 02/06/2022. 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 Patient has a known history of pituitary lesion, post resection in 2017. Sees Neurosurgery as an outpatient. Status: Acute (5) Weakness: Problem details: Suspect due to hyponatremia. Probably will need rehab stay. Status: Acute (6) Metabolic encephalopathy: Problem details: Due to severe hyponatremia. Much improved. Status: Acute (7) Hypomagnesemia: Problem details: Replace Status: Acute (8) Heart failure with preserved ejection fraction: Problem details: See echo report above. Patient was previously on hydrochlorothiazide 50 mg daily. I have started torsemide 10 mg daily in anticipation of problems with volume control and edema off his hydrochlorothiazide. May also help manage his sodium. Status: Acute Plan Continue in hospital for management of hyponatremia and safe discharge plan. Time Spent With Patient Total time spent: Total time spent today is 35 minutes, 25 minutes in coordination of care and discussing with patient other providers ongoing management of hyponatremia and rehabilitation Subjective Date Seen: 02/03/22 Interval history: 72-year-old male seen in followup of hospitalization for severe hyponatremia, associated metabolic encephalopathy, weakness. Patient reports generally doing well today. He still feels like he is not up to returning home to independent living due to weakness and poor mobility. He reports no shortness of breath. He has a good appetite. No fever. Exam Narrative: Exam Narrative: He is alert and appears in no distress. He is oriented to his circumstances. Respirations are clear to auscultation. Cardiovascular: S1, S2, 2/6 systolic ejection murmur. No gallop or rub. Abdomen is soft there is no tenderness or mass. Extremities with trace edema. Const: Vital Signs, click to edit/add: Vital Signs - 24 hr 02/02/22 15:00 02/02/22 15:00 02/02/22 15:00 Temperature 98.7 F Pulse Rate 70 Pulse Rate [Pulse Oximeter] 70 69 Respiratory Rate 16 Blood Pressure [Le ft Arm] 112/54 L Pulse Oximetry 95 Oxygen Delivery Me thod Room Air CPAP 02/02/22 16:00 02/02/22 19:00 02/02/22 23:00 Temperature 98.4 F Pulse Rate 64 Pulse Rate [Pulse Oximeter] 65 Respiratory Rate 20 Blood Pressure [Le ft Arm] 111/46 L Pulse Oximetry 95 95 Oxygen Delivery Me thod Room Air CPAP 02/02/22 23:00 02/02/22 23:00 02/03/22 03:00 Temperature 97.8 F 98.5 F Pulse Rate Pulse Rate [Pulse Oximeter] 65 65 64 Respiratory Rate 18 18 18 Blood Pressure [Le ft Arm] 94/49 L 102/55 L Pulse Oximetry 98 100 Oxygen Delivery Me thod Room Air CPAP CPAP 02/03/22 07:00 02/03/22 07:00 02/03/22 07:00 Temperature 97.6 F Pulse Rate 64 Pulse Rate [Pulse Oximeter] 64 64 Respiratory Rate 18 18 Blood Pressure [Le ft Arm] 106/71 Pulse Oximetry 95 Oxygen Delivery Me thod CPAP 02/03/22 11:00 Temperature 98.6 F Pulse Rate Pulse Rate [Pulse Oximeter] 68 Respiratory Rate 20 Blood Pressure [Le ft Arm] 107/46 L Pulse Oximetry 97 Oxygen Delivery Me thod Room Air Documenting provider has reviewed patient's vital signs: yes Labs Labs: Laboratory Results - last 24 hr 01/30/22 02/03/22 06:35 06:10 Sodium 129 L Potassium 4.1 Chloride 96 Carbon Dioxide 29 BUN 15 Creatinine 0.5 Estimated Creat Clear 64.60 Estimated GFR 108 Glucose 110 Calcium 9.3 RBC Fol Maulik for Serum 21.3
--- NOTE | 2022-02-03 13:46 | P.DS_ITS ---
DS: Providers Provider Date Seen: 02/03/22 Date of admission: 01/29/22 15:54 Primary care physician: Jose Linares MD Admitting Clinician: Rigoberto Nina MD Attending Physician on discharge: Gina Carreon MD Date of Discharge: 02/03/22 DS: Diagnosis Discharge Diagnosis (1) Aortic stenosis: Status: Acute Problem details: TTE 01/30/2022 Final Impressions: 1. Technically limited exam. 2. Normal LV size, moderately increased wall thickness, normal global systolic function with an estimated EF of 70 - 75%. 3. There is SANDRA with resting LVOT PG of 29 mmHg, increased to 86 mmHg with Valsalva. Findings suggestive of HOCM. 4. Right ventricular cavity size is normal, global systolic RV function is normal. 5. Severely enlarged left atrium. 6. The aortic valve is calcified, mild-moderate stenosis and moderate regurgitation. The aortic valve peak velocity is 3.6 m/s, the peak gradient is 53 mmHg, and the mean gradient is 35 mmHg. The aortic valve area is 1.79 cm?? with a dimensionless index of 0.45. The stroke volume index is 59.8 ml/m??. 7. The mitral valve is sclerotic. Mean gradient 5.3 mmHg at HR 64 bpm. 8. Based on the echo findings, consider cardiac MRI and Cardiology Consult. (2) Hyponatremia: Status: Acute Problem details: Na 111 on admission, symptomatic with weakness and nausea, no confusion or seizures. Causing metabolic encephalopathy. Gradually improving. Likely due to hydrochlorothiazide and Bactrim. Both should be avoided in the future. Outpatient Na: 134 on 01/17/22. (3) Metabolic encephalopathy: Status: Acute Problem details: Due to severe hyponatremia. Much improved. (4) Heart failure with preserved ejection fraction: Status: Acute Problem details: See echo report above. Patient was previously on hydrochlorothiazide 50 mg daily. I have started torsemide 10 mg daily in anticipation of problems with volume control and edema off his hydrochlorothiazide. May also help manage his sodium. (5) Hypomagnesemia: Status: Acute Problem details: Replace (6) Microcytic anemia: Status: Acute Problem details: 01/29/22: Hgb 9.4, MCV 79. Outpatient baseline Hgb 11. Patient scheduled for outpatient colonoscopy on 02/06/2022. 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 Patient has a known history of pituitary lesion, post resection in 2017. Sees Neurosurgery as an outpatient. (8) Atrial arrhythmia: Status: Acute Problem details: Hospitalized for this in December at [facility]. (9) Weakness: Status: Acute Problem details: Suspect due to hyponatremia. Probably will need rehab stay. DS: Summary Hospital Course Hospital Course: 72-year-old male admitted to the hospital with report of some for swallowing problems due to problems in his throat and hyponatremia. Sodium on admission was 111. This was thought to be due to a combination of hydrochlorothiazide therapy which she had been on chronically and recent addition of Bactrim DS for the past couple weeks. The Bactrim was to treat a suspected urinary tract infection for which he was hospitalized at [facility]. These drugs were stopped and he was treated with 3% saline solution which gradually raised his sodium without complications. Hydrochlorothiazide and Bactrim were discontinued and recommended not to resume. Do the hydrochlorothiazide was replaced by torsemide 10 mg daily to help with volume and edema control. At the time of admission he had some cognitive confusion and altered mental status this was f elt to be metabolic encephalopathy due to the hyponatremia. This resolved during his hospital stay. He did have an echocardiogram because of concerns about his heart murmur. He he was found to have and outflow murmur. See echocardiogram for details of that. Outpatient Cardiology follow-up is recommended. During his hospital stay he was also noted to have difficulties with swallowing. Because there was concern about a mass in his airway he did have a CT scan of the soft tissues of his neck which was relatively and unremarkable except for some tonsillar enlargement. This did not receive any specific therapy and did not bother him through his hospital stay. He was evaluated by therapy and there were concerns about whether he can return home or would need long-term facility. Decision today is that he will return home for ongoing management of his weakness and immobility. Status at Discharge Functional status at discharge: uses cane/walker Overall status at discharge: patient is progressing back to baseline Time Spent with Patient Time attestation: Total time spent providing and/or coordinating discharge services: Time spent: Greater than 30 minutes Exam Narrative: Exam Narrative: He is alert and in no distress. He is oriented to his circumstances. Respirations are clear to auscultation. Cardiovascular: S1, S2, 2/6 systolic murmur. Abdomen is soft without tenderness or mass extremities with trace edema. Const: Vital Signs, click to edit/add: Vital Signs - 24 hr 02/02/22 15:00 02/02/22 15:00 02/02/22 15:00 Temperature 98.7 F Pulse Rate 70 Pulse Rate [Pulse Oximeter] 70 69 Respiratory Rate 16 Blood Pressure [Le ft Arm] 112/54 L Pulse Oximetry 95 Oxygen Delivery Me thod Room Air CPAP 02/02/22 16:00 02/02/22 19:00 02/02/22 23:00 Temperature 98.4 F Pulse Rate 64 Pulse Rate [Pulse Oximeter] 65 Respiratory Rate 20 Blood Pressure [Le ft Arm] 111/46 L Pulse Oximetry 95 95 Oxygen Delivery Me thod Room Air CPAP 02/02/22 23:00 02/02/22 23:00 02/03/22 03:00 Temperature 97.8 F 98.5 F Pulse Rate Pulse Rate [Pulse Oximeter] 65 65 64 Respiratory Rate 18 18 18 Blood Pressure [Le ft Arm] 94/49 L 102/55 L Pulse Oximetry 98 100 Oxygen Delivery Me thod Room Air CPAP CPAP 02/03/22 07:00 02/03/22 07:00 02/03/22 07:00 Temperature 97.6 F Pulse Rate 64 Pulse Rate [Pulse Oximeter] 64 64 Respiratory Rate 18 18 Blood Pressure [Le ft Arm] 106/71 Pulse Oximetry 95 Oxygen Delivery Me thod CPAP 02/03/22 11:00 Temperature 98.6 F Pulse Rate Pulse Rate [Pulse Oximeter] 68 Respiratory Rate 20 Blood Pressure [Le ft Arm] 107/46 L Pulse Oximetry 97 Oxygen Delivery Me thod Room Air Documenting provider has reviewed patient's vital signs: yes DS: Data Data Completed and Pending Labs on day of discharge: Labs from last 24 hours 02/03/22 01/30/22 06:10 06:35 Sodium 129 L Potassium 4.1 Chloride 96 Carbon Dioxide 29 BUN 15 Creatinine 0.5 Estimated Creat Clear 64.60 Estimated GFR 108 Glucose 110 Calcium 9.3 RBC Fol Maulik for Serum 21.3 Discharge Plan Discharge Disposition: Home, Self-Care Date of Admission: 01/29/22 15:54 Attending Provider on Discharge: Rigoberto Nina Primary Care Provider: Jose Linares Condition: Improved Anticipated Discharge Date/Time: 02/03/22 14:00 Discharge Medications: New torsemide 10 mg tablet 10 mg PO DAILY Qty: 30 2RF potassium chloride 10 mEq capsule, extended release 20 meq PO DAILY Qty: 60 2RF Continued atorvastatin 40 mg tablet 40 mg PO DAILY Label Comments: TAKE ONE TABLET BY MOUTH ONE TIME DAILY metoprolol succinate 50 mg tablet extended release 24 hr 50 mg PO DAILY Label Comments: TAKE ONE TABLET BY MOUTH ONE TIME DAILY citalopram 10 mg tablet 10 mg PO DAILY Label Comments: TAKE ONE TABLET BY MOUTH EVERY DAY IN THE MORNING. tamsulosin 0.4 mg capsule 0.4 mg PO DAILY Label Comments: TAKE ONE CAPSULE BY MOUTH DAILY AFTER A MEAL metformin 1,000 mg tablet 1,000 mg PO BID Label Comments: TAKE ONE TABLET BY MOUTH TWICE DAILY WITH MEALS magnesium oxide 400 mg (241.3 mg magnesium) tablet 400 mg PO DAILY Label Comments: Take 1 Tablet (400 mg) by mouth once daily. pantoprazole 40 mg tablet,delayed release (DR/EC) 40 mg PO DAILY Label Comments: Take 1 Tablet (40 mg) by mouth once daily. cholecalciferol (vitamin D3) 25 mcg (1,000 unit) tablet 1,000 unit PO DAILY Eliquis 5 mg tablet 5 mg PO BID guaifenesin [Mucinex] 600 mg tablet extended release 12hr 600 mg PO BID PRN ascorbic acid (vitamin C) [Acerola C] 500 mg tablet,chewable 500 mg PO DAILY Fish Oil 100-160-1,000 mg capsule 1 cap PO DAILY acetaminophen 500 mg tablet 1,000 mg PO Q6H PRN Discontinued amiloride-hydrochlorothiazide 5-50 mg tablet 1 tab PO DAILY Label Comments: TAKE ONE TABLET BY MOUTH ONE TIME DAILY lisinopril 10 mg tablet 10 mg PO DAILY Label Comments: TAKE ONE TABLET BY MOUTH ONE TIME DAILY Discharge Orders: Discharge Order (Routine); Ordered 02/03/22 Ordered By: Rigoberto Nina Activity Restrictions/Additional Instructions: See your doctor next week for recheck of your lab tests and followup of your other medical problems Activity Level: Use Walker Discharge Diet: Diabetic Follow Up Appointments: Jose Linares MD [Primary Care Provider] - (Next week) Forms: [facility] [facility] Info Instructions
--- NOTE | 2022-02-03 13:47 | PC.SOCIAL ---
Pt. was accepted to the [facility] for Sunday and [facility] for today in a shared room. Pt. is moving much better today and has decided to discharge home. Confirmed with son Jamey and ex- Erin, whom pt. is currently living with and they are in agreement. Erin states she has a friend that will come over during the day when she is subbing to check on pt. and make sure he is walking laps and using the stairs. Erin will arrive around 3:45 to take pt. home.
[2022-02-03 14:25] VITALS: PULSE 64; RESP 20; TEMP 37
--- NOTE | 2022-02-03 16:45 | PC.NURSE ---
REVIEWED CHANGE IN MEDS. PT VERBALIZED UNDERSTANDING. DISCHARGED AT 1617 - VIA W/C.
== END 2022-02-03 16:17 | disposition home or self-care (01) | DRG 641 ==
LOC: ED 11:43 → MEDSURG 13:56
PROVIDERS: Family Medicine; Admitting Provider Family Medicine; Emergency Provider Emergency Medicine; PCP Family Medicine; Visit Provider Family Medicine
DX: E87.1 Hypo-osmolality and hyponatremia (principal); Z68.42 Body mass index [BMI] 45.0-49.9, adult; I50.30 Unspecified diastolic (congestive) heart failure; T50.2X5A Adverse effect of carbonic-anhydrase inhibitors, benzothiadiazides and other diuretics, initial encounter; T36.8X5A Adverse effect of other systemic antibiotics, initial encounter; E83.42 Hypomagnesemia; E87.6 Hypokalemia; D50.9 Iron deficiency anemia, unspecified; R19.7 Diarrhea, unspecified; I11.0 Hypertensive heart disease with heart failure; G93.9 Disorder of brain, unspecified; L21.9 Seborrheic dermatitis, unspecified; I25.10 Atherosclerotic heart disease of native coronary artery without angina pectoris; E66.01 Morbid (severe) obesity due to excess calories; N40.1 Benign prostatic hyperplasia with lower urinary tract symptoms; K21.9 Gastro-esophageal reflux disease without esophagitis; I44.0 Atrioventricular block, first degree; I45.10 Unspecified right bundle-branch block; I35.2 Nonrheumatic aortic (valve) stenosis with insufficiency; E78.5 Hyperlipidemia, unspecified; F17.210 Nicotine dependence, cigarettes, uncomplicated; Z85.820 Personal history of malignant melanoma of skin
CPT/HCPCS: 36415; 70491; 80048; 80053; 80076; 81001; 82607; 82746; 83540; 83550; 83605; 83735; 83930; 83935; 84295; 84300; 84443; 84484; 85025; 85651; 86140; 87493; 87502; 87634; 87635; 93005; 93306; 97110; 97116; 97161; 97165; 97530; 97535; 99285; A9270; J1940; J2405; J3475; J7120; J7131; Q9967

== ENCOUNTER 2022-04-03 08:39 | Outpatient (CLI) | payer MEDICARE, SELFPAY ==
--- OUTSIDE RECORDS SUMMARY | 2022-04-03 09:02 | XMS_ITS | Clinical Summary ---
:1950 Author Organization [employer] [place] [address] Care Team Providers Name Role Phone Jose Linares MD Primary Care Provider [phone] Allergies Active Allergy Reactions Severity Noted [...] 3 times per day. stated as uncontrolled acetaminophen Take 1,000 mg by 0 Active [...] stripIndications: times/day. Diabetes mellitus without complication (HC) blood sugar Dispense item 300 Each 3 [...] BPH without urinary after a meal. obstruction guaiFENesin Take 1 Tablet 0 01/18/20 Acti ve (MUCINEX) 600 mg (600 mg) by 22 Extended-Release mouth 2 times tablet daily if needed for Expectoration. pantoprazole Take 1 Tablet 90 Tablet 3 01/18/20 Act pacheco (PROTONIX) 40 mg (40 mg) by mouth 22 delayed-release once daily. tabletIndications: Chronic GERD torsemide (DEMADEX) Daily 0 02/04/20 Active 10 mg tablet 22 potassium chloride Take 1 Tablet 0 02/14/20 Active (K-DUR) 20 mEq (20 mEq) by 22 Extended-Release mouth two times tablet daily with meals. magnesium oxide Take 1 Tablet 120 Tablet 5 02/16/20 Active (MAG-OX 400) 400 mg (400 mg) by 22 tabletIndications: mouth four times Low magnesium level daily. CPAPIndications: CPAP machine for 1 Each 03/13/20 Active Obstructive sleep home use at 22 apnea pressure 18 cmw, full face mask x1/3month with a full face cushion x1/mo BD INSULIN SYRINGE USE WITH INSULIN 300 Each 3 07/06/1903/02 0/2 Discontinued UF 1 mL 30 gauge x INJECTIONS DAILY 17 022 (*Med 1/2Indications: com plete/Regime Diabetes mellitus n without complete/L evel complication (HC) of care change) CPAPIndications: NEW replacement 1 Device 0 07/28/19 Discontinued PREETI (obstructive CPAP machine for 20 022 (*Med sleep apnea) home use at [facility] ete/Regime pressure: n [id number] , Water comp lete/Level chamber x 1 q 6 of c are change) mo, chin strap x 1 q 6 mo, full face mask x 1 q 3 mo, Full face cushion x 1 q mo, standard tubing x 1 q 3 mo, headgear x 1 q 6 mo, non disposable filter 1 q 6 mo, disposable filter x 2 q mo Length of Need: 99 months, Frequency of use: Daily Eliquis 5 mg tablet Take 5 mg by 0 01/13/20 Discontinued mouth two times 22 022 (*Pa tient daily. states no longer taking/Not on sending facility l ist) Active Problems Problem Noted Date Heart failure with preserved ejection fraction, unspec ified HF chronicity 02/13/2022 Pituitary adenoma with extrasellar extension 7 Kidney [...] Encounters Date Type Specialty Care Team Description 03/29/2022 Preop Visit Jose Linares Preoperative Exam MD Fransico (04/03/22, EGD/colonoscopy , [place]) 03/29/2022 Travel 03/16/2022 Orders Only Scanner <No scans attac hed> 03/13/2022 Office Visit Logan Cortez MD Sleep Follow -up (CPAP follow up- last seen 2018) 03/13/2022 Travel 02/28/2022 Ancillary Procedure 02/27/2022 Office Visit Librado Jacques [facility]D Hearing Aid (Fitting) 02/27/2022 Travel 02/17/2022 Office Visit Librado Jacques [facility] Hearing Aid (Consultation) 02/17/2022 Travel 02/14/2022 Telephone Rayshawn Aden Colonoscopy/En doscopy MD Alfred 02/13/2022 Office Visit [facility] F/U (Fransico Han MD 01/29/22, hypona tremia, aortic stenosis ); Immunization/In jection 02/13/2022 Travel 02/10/2022 Telephone Kunal García MD 02/08/2022 Orders Only Lab, [facility] Lab 02/08/2022 Travel 02/07/2022 Telephone Jose Linares MD 02/06/2022 Patient Outreach Amaris Pickering Prim ary RN Care RN Management; Hos pital F/U (Discharged fro [facility] 02/03/2022) 01/31/2022 Telephone Rayshawn Aden Procedure MD Alfred 01/30/2022 Orders Only <No scans attac hed> 01/29/2022 Orders Only Scanner <No scans attac hed> 01/23/2022 Travel 01/23/2022 Nurse Triage [facility] Difficulty Br abrahan Bateman MD 01/18/2022 Telephone Darrell Temple MD 01/18/2022 Telephone Cardiology, Anw Referral [facility] (Fransico Whittington MD transferred fro m [facility] ER, 01/10/22, [place] I, irregular heart beat, weakness); Immunization/In jection 01/16/2022 Office Visit Nora Xie, Hearing Problem (Hearing AuD test and hearin g aid check/) 01/16/2022 Office Visit Mihaela Randall Ear Problem ( Ear R[facility]) 01/16/2022 Travel 01/13/2022 Refill Jose Linares MD (Amiloride-hydr ochloroth iazide (5-50 Mg )) 01/10/2022 Orders Only Scanner <No scans attac hed> from Last 3 Months Immunizations Name Administration [...] 12/29/2010, 12/29, 02/18/2008, 03/01/2007, 02/16/2006 Influenza, Inactivated AIIV4 (Age 65+ 02/13/2022 Years) Preserv Free Influenza, Inactivated IIV3 (Age 65+ 01/28/2020, 02/11/2019, [...] drink = 0.6 oz pure alcoho l) [facility] Alcohol Habits Answer Date Recorded How often [...] in contact with No / Unsu re 03/29/2022 1:12 PM ACTIVATED SLUDGE OPERATOR someone who was confirmed or suspected to have Coronavirus/COVID-19? Obstetrics History Last Filed Vital Signs Vital Sign Reading Time Taken Comments Blood Pressure 145/66 03/29/2022 1:59 PM ACTIVATED SLUDGE OPERATOR Pulse 65 03/29/2022 1:27 PM ACTIVATED SLUDGE OPERATOR Temperature 36.6 ??C (97.8 ??F) 03/29/2022 1:27 PM ACTIVATED SLUDGE OPERATOR Respiratory Rate 18 02/22/2017 11:07 AM CDT Oxygen Saturation 98% 03/29/2022 1:27 PM ACTIVATED SLUDGE OPERATOR Inhaled Oxygen Concentration - - Weight 133.2 kg (293 lb 9.6 oz) 03/29/2022 1:27 PM ACTIVATED SLUDGE OPERATOR Height 170.2 cm (5' 7) 03/29/2022 1:27 PM ACTIVATED SLUDGE OPERATOR Body Mass Index 45.98 03/29/2022 1:27 PM ACTIVATED SLUDGE OPERATOR Plan of Treatment Upcoming Encounters Date Type Specialty Care Team Description 04/05/2022 Office Visit Leroy Banuelos MD [address] [facility] [address] [place] [address] (Wo rk) 05/02/2022 Office Visit Jose Linares MD [address] [address] (Wo rk) Health Maintenance Due Date Last Done Comments Hepatitis C screening for age 0901/06/1968 18-79 Zoster (shingles) series for age 1103/19/2012 01/23/2012 50+ (2 of 3) Colonoscopy through age 75 09/29/2019 09/28/2014, 5, 01/09/2011, Additional history exists Depression screening for age 12+ 07/20/2022 07/20/2021, , 03/11/2019, Additional history exists Medicare Wellness for age 65+ 07/20/2022 07/20/2021, 2016 BMI (ht and wt on same day) for 03/29/2023 03/29/2022, 04/09/2021, age 18+ 08/11/2021, Additional history exists Lipids for age 45-75 07/20/2026 07/20/2021, 10/19/2020, 12/02/2019, Additional history exists Tetanus booster 07/25/2026 07/25/2016, 07/27/2006, 01/25/1995 Tdap Completed 07/27/2006 Pneumococcal series for age 65+ Completed 08/23/2017, 01/28, 07/27/2006 COVID-19 vaccine series Completed 01/19/2022, 08/26/2021, 02/20/2021, Additional history exists Influenza for age 65+ Completed 02/13/2022, 01/16/2021, 01/28/2020, Additional history exists AAA screening age 55-77 Completed 02/28/2022, 05/29/2016, 06/03/2013, Additional history exists Medical Devices Implanted Type Area Accounts Supervisor Device Shelf Expiration Model / Identifier Date Serial / Lot Amplatz Ureteral Stent Set [id number] / Implanted: Qty: 1 on 06/02/2013 at [facility] / Description: AMPLATZ URETERAL STENT SET Procedures Procedure Name Priority Date/Time Associated Diagnosis Comme nts COVID 19 Routine 03/29/2022 1:28 Pre-op exam Results for this PM ACTIVATED SLUDGE OPERATOR procedure are i n the results section. COVID 19 COLLECTION Routine 03/29/2022 1:28 Pre-op exam Resul ts for this PM ACTIVATED SLUDGE OPERATOR procedure are i n the results section. CBC WITH AUTO Routine 03/29/2022 1:21 Unspecified Results for this DIFFERENTIAL PM ACTIVATED SLUDGE OPERATOR hypertension procedure are i n the results section. HEMOGLOBIN A1C Routine 03/29/2022 1:21 Diabetes mellitus Resul ts for this PM ACTIVATED SLUDGE OPERATOR type 2 procedure are i n the results section. BASIC METABOLIC PANEL Routine 03/29/2022 1:21 Unspecified Res ults for this PM ACTIVATED SLUDGE OPERATOR hypertension procedure are i n the results section. CBC WITH AUTO Routine 03/29/2022 1:21 Unspecified Results for this DIFFERENTIAL PM ACTIVATED SLUDGE OPERATOR hypertension procedure are i n the results section. SCAN-OPERATIVE/PROCEDU 03/16/2022 12:00 R esults for this RE REPORT AM ACTIVATED SLUDGE OPERATOR procedure are i n the results section. CT ABDOMEN PELVIS Routine 02/28/2022 11:44 Calculus of kidney Results for this STONE PROTOCOL WO AM CDT procedure are in the results section. MAGNESIUM Routine 02/13/2022 5:21 Hypomagnesemia Results fo r this PM CDT procedure are i n the results section. MAGNESIUM Routine 02/08/2022 4:11 Hypomagnesemia Results fo r this PM CDT procedure are i n the results section. CBC W PLT NO DIFF Routine 02/08/2022 4:11 Hyponatremia Results for this PM CDT procedure are i n the results section. BASIC METABOLIC PANEL Routine 02/08/2022 4:11 Hyponatremia Res ults for this PM CDT procedure are i n the results section. ECHO COMPLETE WO Routine 01/30/2022 4:39 Aortic [...] results section. from Last 3 Months Results COVID 19 (03/29/2022 1:28 PM ACTIVATED SLUDGE OPERATOR) Analysis Performed At Patho logist Time Signature COVID 19 Negative Negative 03/31/2022 RUST 12:54 AM ACTIVATED SLUDGE OPERATOR [facility] Specimen Anatomical Location Collection Method Collection Time Received Time (Source) / Laterality / Volume Other OROPHARYNGEAL / Non-Blood / 03/29/2022 1:28 8:34 Unknown Unknown PM ACTIVATED SLUDGE OPERATOR AM ACTIVATED SLUDGE OPERATOR Narrative [facility] LABORATORY-CENTRAL LABORAT ORY - 03/31/2022 12:54 AM ACTIVATED SLUDGE OPERATOR All PCR tests are subject to false negative result due to variability in viral load and collection te chnique. A negative result does not rule out a SARS-CoV-2 infection. Clinical correlation required. This test has been authorized by FDA und er an Emergency Use Authorization (EUA). This test is only authorized for the duration of time the declaration that circumstances exist justifying the authorizati on of the emergency use of in vitro diag nostic tests for detection of SARS-CoV-2 virus and/or diagnosis of COVID-19 infection under section 564(b)(1) of the Act, 21 U.S.C. 360bbb-3(b) (1), unless the authorization is terminated or revoked sooner. Jose Linares MD MICROBIOLOGY Performing Organization Address City/State/ZIP Code Phon e Number [facility] [address] [place] [address] LABORATORY-CENTRAL 2000 LABORATORY COVID 19 COLLECTION (03/29/2022 1:28 PM ACTIVATED SLUDGE OPERATOR) [facility]ist Method Time Signature TESTING [facility] 03/30/2022 [facility] LABORATORY Laboratory 8:34 AM ACTIVATED SLUDGE OPERATOR LABORATORY-CE NTRAL LABORATORY Comment: Specimen submitted to [facility] Laboratory for testing. Specimen Anatomical Location Collection Method Collection Time Received Time (Source) / Laterality / Volume Other OROPHARYNGEAL / Non-Blood / 03/29/2022 1:28 2 1:52 Unknown Unknown PM ACTIVATED SLUDGE OPERATOR PM ACTIVATED SLUDGE OPERATOR Jose Linares MD SEND OUTS Performing Organization Address City/State/ZIP Code Phon e Number [facility] [address] [place] [address] LABORATORY-CENTRAL 2000 LABORATORY (ABNORMAL) CBC WITH AUTO DIFFERENTIAL (03/29/2022 1:21 PM ACTIVATED SLUDGE OPERATOR)Only the most recent of2 resultswithin the time period is included. [facility] Method Time Signature WHITE BLOOD 7.9 4.5 - 03/29/2022 [facility] COUNT 11.0 1:29 PM [facility]/ CLINIC mm RED BLOOD COUNT 3.72 (L) 4.30 - 03/29/2022 [facility] 5.90 1:29 PM [facility]/ mm CLINIC HEMOGLOBIN 10.7 (L) 13.5 - 03/29/2022 [facility] 17.5 g/dL 1:29 PM [facility] HEMATOCRIT 33.3 (L) 37.0 - 03/29/2022 [facility] 53.0 % 1:29 PM [facility] MCV 90 80 - 100 03/29/2022 [facility] fL 1:29 PM [facility] MCH 28.8 26.0 - 03/29/2022 [facility] 34.0 pg 1:29 PM [facility] MCHC 32.1 32.0 - 03/29/2022 [facility] 36.0 g/dL 1:29 PM [facility] RDW 15.7 (H) 11.5 - 03/29/2022 [facility] 15.5 % 1:29 PM [facility] PLATELET COUNT 180 140 - 440 03/29/2022 [facility] thou/cu 1:29 PM [facility] MPV 11.3 (H) 6.5 - 03/29/2022 [facility] 11.0 fL 1:29 PM [facility] % NEUT 54.9 % 03/29/2022 [facility] 1:29 PM [facility] % LYMPH 33.2 % 03/29/2022 [facility] 1:29 PM [facility] % MONO 8.3 % 03/29/2022 [facility] 1:29 PM [facility] % EOS 3.2 % 03/29/2022 [facility] 1:29 PM ACTIVATED SLUDGE OPERATOR [facility] % BASO 0.4 % 03/29/2022 [facility] 1:29 PM ACTIVATED SLUDGE OPERATOR [facility] ABSOLUTE 4.3 1.7 - 7.0 03/29/2022 [facility] NEUTROPHILS thou/cu 1:29 PM ACTIVATED SLUDGE OPERATOR [facility] CLINIC ABSOLUTE 2.6 0.9 - 2.9 03/29/2022 [facility] LYMPHOCYTES thou/cu 1:29 PM ACTIVATED SLUDGE OPERATOR [facility] ABSOLUTE 0.7 <0.9 03/29/2022 [facility] MONOCYTES thou/cu 1:29 PM ACTIVATED SLUDGE OPERATOR [facility] ABSOLUTE 0.3 <0.5 03/29/2022 [facility] EOSINOPHILS thou/cu 1:29 PM ACTIVATED SLUDGE OPERATOR [facility] ABSOLUTE 0.0 <0.3 03/29/2022 [facility] BASOPHILS thou/cu 1:29 PM ACTIVATED SLUDGE OPERATOR [facility] Specimen Anatomical Collection Method / Collection Time Recei vanessa Time (Source) Location / Volume Laterality Blood BLOOD SPECIMEN / Venipuncture / 03/29/2022 1:21 2021 1:23 Unknown Unknown PM ACTIVATED SLUDGE OPERATOR PM ACTIVATED SLUDGE OPERATOR Jose Linares MD HEMATOLOGY Performing Organization Address City/State/ZIP Code Phon e Number [facility] [address] [place] [address] HEMOGLOBIN A1C MONITORING (POCT) (03/29/2022 1:21 PM ACTIVATED SLUDGE OPERATOR) P athologist Signature HEMOGLOBIN A1C 5.9 <=6.4 % 03/29/2022 [facility] MONITORING 1:33 PM ACTIVATED SLUDGE OPERATOR [facility] (POCT) [facility] Specimen Anatomical Collection Method / Collection Time Recei vanessa Time (Source) Location / Volume Laterality Blood BLOOD SPECIMEN / Venipuncture / 03/29/2022 1:21 2021 1:23 Unknown Unknown PM ACTIVATED SLUDGE OPERATOR PM ACTIVATED SLUDGE OPERATOR Narrative [facility] - 2021 1:33 PM ACTIVATED SLUDGE OPERATOR ? (<=6.9%) ? Indicates good control ? (7.0% to 7.9%) ? Indicates fa ir control ? (>=8.0%) ? Indicates poor control ?? NOTE: ??These thresholds are guideli corby and ?individual targets may va ry. Falsely low levels may be seen with: Recent Transfusion, Recent Significant B lood Loss, Hemolytic Diseases, or Falsely elevated levels may be seen with : Untreated Anemias, Splenectomy ? Jose Linares MD CHEMISTRY Performing Organization Address City/State/ZIP Code Phon e Number [facility] [address] [place] [address] (ABNORMAL) BASIC METABOLIC PANEL (03/29/2022 1:21 PM ACTIVATED SLUDGE OPERATOR)Only the most recent of 3 resultswithin the time period is included. Analysis Performed At [facility] Time Signature SODIUM 143 135 - 145 03/31/2022 [facility] mmol/L 8:53 AM ACTIVATED SLUDGE OPERATOR LAB[facility]AT[facility] POTASSIUM 3.9 3.5 - 5.0 03/31/2022 [facility] mmol/L 8:53 AM ACTIVATED SLUDGE OPERATOR LAB[facility]AT[facility] TR[facility] LABORATORY CHLORIDE 102 98 - 110 03/31/2022 [facility] mmol/L 8:53 AM ACTIVATED SLUDGE OPERATOR [facility] CO2,TOTAL 31 21 - 31 03/31/2022 [facility] mmol/L 8:53 AM ACTIVATED SLUDGE OPERATOR [facility] ANION GAP 10 5 - 18 03/31/2022 [facility] 8:53 AM ACTIVATED SLUDGE OPERATOR [facility] GLUCOSE 152 (H) 65 - 100 03/31/2022 [facility] mg/dL 8:53 AM ACTIVATED SLUDGE OPERATOR [facility] LAB[facility] CALCIUM 9.8 8.5 - 10.5 03/31/2022 [facility] mg/dL 8:53 AM ACTIVATED SLUDGE OPERATOR [facility] BUN 23 8 - 25 03/31/2022 [facility] mg/dL 8:53 AM ACTIVATED SLUDGE OPERATOR [facility] LAB[facility] CREATININE 0.79 0.72 - 03/31/2022 [facility] 1.25 mg/dL 8:53 AM ACTIVATED SLUDGE OPERATOR LAB[facility] TR[facility] LABORATORY BUN/CREAT RATIO 29 (H) 10 - 20 03/31/2022 [facility] 8:53 AM ACTIVATED SLUDGE OPERATOR [facility] TR[facility] LABORATORY eGFR >90 >90 03/31/2022 [facility] mL/min/1.7 8:53 AM ACTIVATED SLUDGE OPERATOR LABORATORY-[facility] 3m2 TRAL LABORATORY Comment: As of 2021, eGFR is [...] Laterality Blood BLOOD SPECIMEN / Venipuncture / 03/29/2022 1:21 2021 1:23 Unknown Unknown PM ACTIVATED SLUDGE OPERATOR PM ACTIVATED SLUDGE OPERATOR Jose Linares MD CHEMISTRY Performing Organization Address City/State/ZIP Code Phon e Number [employer] [address] [place] [address] LABORATORY-CENTRAL 2000 LABORATORY SCAN-OPERATIVE/PROCEDURE REPORT (03/16/2022 12:00 AM ACTIVATED SLUDGE OPERATOR) Narrative This result has an attachment that is no t available. Scanner OTHER CT ABDOMEN PELVIS STONE PROTOCOL WO (02/28/2022 11:44 AM CDT) Anatomical Region Laterality Modality Abdomen, Pelvis, AORTA, LIVER, SPLEEN Co mputed Tomography Specimen (Source) Anatomical Collection Method Collection Time Re ceived Time Location / / Volume Laterality 02/28/2022 3:25 PM CDT Narrative 02/28/2022 3:25 PM CDT For Patients: ??As a result of the Cures Act, medical imaging exams and procedure report s are released immediately into your [facility] medical record. ??You may view this report before your referring provider. ??If you have questions, please contact your health care provider. Indication: Renal calculus Technique: Noncontrast CT abdomen and pelvis Please note that all CT scans at this [facility] use dose modulation, iterative reconstruction, and/or weight-based dosing when appropriate to reduce radiation dose to as low as reasonably achievable. Comparison: 05/29/2016 Findings: Chronic scarring within the lung bases w ith multiple calcified granulomas in both lower lobes, unchanged. No pleural effusion is present. Vascular calcifications are present. The liver is incompletely v isualized due to patient body habitus. N o calcified gallstone within the gallbladder lumen. Multiple simple and complicated renal cortical cysts are again noted. No hydronephrosis. Punctate calcificatio ns are located within the posterior righ t kidney. No acute perinephric stranding. The ureters are normal without stone or hydroureter. The prostate is enlarged with mass effect upon the inferior bladder . The bladder is also free of stones. Pr ostate calcifications are noted. Anterior abdominal wall pannus is present. There is no bowel obstruction. Postoperative changes of gastrectomy sleeve procedure n oted. Weakening of the abdominal wall wi thout focal hernia defect. Pancreatic calcifications are present. Adrenal glands are normal. Spleen is not enlarged. No adenopathy. Degenerative changes lumbar spine. Right hip replacement [place]. Impression: Multiple punctate stones within the post erior right kidney measuring up to 2-3 millimeters. No hydronephrosis. Previously noted bladder stone is no kali pierre present. Please note that all CT scans at this [facility] use dose modulation, iterative reconstruction, and/or weight-based dosing when appropriate to reduce radiation dose to as low as reasonably achievable. Dictated by Lencho Delgadillo MD @ Feb ??1 2021 ??3:25PM (Electronically Signed) ?? Procedure Note Lencho Delgadillo MD - 02/28/2022For matting of this note might be different from the original. For Patients: As a result of the ntury Cures Act, medical imaging exams and procedure reports are released immediately into your electronic medical record. You may view this report before your referring provider. If you have questions, please contact [place] health care provider. Indication: Renal calculus Technique: Noncontrast CT abdomen and pelvis Please note that all CT scans at this [facility] use dose modulation, iterative reconstruction, and/or weight-based dosing when appropriate to reduce radiation dose to as low as reasonably achievable. Comparison: 05/29/2016 Findings: Chronic scarring within the lung bases w ith multiple calcified granulomas in both lower lobes, unchanged. No pleural effusion is present. Vascular calcifications are present. The liver is incompletely visualized due to patient body habitus. No calcified galls tone within the gallbladder lumen. Multiple simple and complicated renal cortical cysts are again noted. No hydronephrosis. Punctate calcifications are located within the posterior right kidney. No acute perinephric stran ding. The ureters are normal without stone or hydroureter. The prostate is enlarged with mass effect upon the inferior bladder. The bladder is also free of stones. Prostate calcifications are noted. Anterior abdom inal wall pannus is present. There is no bowel obstruction. Postoperative changes of gastrectomy sleeve procedure noted. Weakening of the abdominal wall without focal hernia defect. Pancreatic calcifications are pr esent. Adrenal glands are normal. Spleen is not enlarged. No adenopathy. Degenerative changes lumbar spine. Right hip replacement [place]. Impression: Multiple punctate stones within the post erior right kidney measuring up to 2-3 millimeters. No hydronephrosis. Previously noted bladder stone is no kali pierre present. Please note that all CT scans at this [facility] use dose modulation, iterative reconstruction, and/or weight-based dosing when appropriate to reduce radiation dose to as low as reasonably achievable. Dictated by Lencho Delgadillo MD @ Feb 28 3:25PM (Electronically Signed) [address] (ABNORMAL) MAGNESIUM (02/13/2022 5:21 PM CDT)Only the most recent of3 results within the time period is included. athologist Signature MAGNESIUM 1.4 (L) 1.6 - 2.6 02/14/2022 [facility] [employer] mg/dL 8:29 PM CDT LABORATORY-[facility] LABORATORY Specimen Anatomical Collection Method / Collection Time Recei vanessa Time (Source) Location / Volume Laterality Blood BLOOD SPECIMEN / Venipuncture / 02/13/2022 5:21 2021 5:21 Unknown Unknown PM CDT PM CDT Jose Linares MD CHEMISTRY Performing Organization Address City/State/ZIP Code Phon e Number [facility] [address] [place] [id number] LABORATORY-CENTRAL 1999 LABORATORY (ABNORMAL) CBC W PLT NO DIFF (02/08/2022 4:11 PM CDT) [facility] gist Method Time Signature WHITE BLOOD 6.0 4.5 - 11.0 02/08/2022 [facility] COUNT thou/cu mm 4:21 PM CDT [facility] RED BLOOD COUNT 3.26 (L) 4.30 - 02/08/2022 [facility] 5.90 4:21 PM CDT [facility] mil/cu mm CLINIC HEMOGLOBIN 9.3 (L) 13.5 - 02/08/2022 [facility] 17.5 g/dL 4:21 PM CDT [facility] HEMATOCRIT 28.7 (L) 37.0 - 02/08/2022 [facility] 53.0 % 4:21 PM CDT [facility] MCV 88 80 - 100 02/08/2022 [facility] fL 4:21 PM CDT [facility] MCH 28.5 26.0 - 02/08/2022 [facility] 34.0 pg 4:21 PM CDT [facility] MCHC 32.4 32.0 - 02/08/2022 [facility] 36.0 g/dL 4:21 PM CDT [facility] RDW 14.7 11.5 - 02/08/2022 [facility] 15.5 % 4:21 PM CDT [facility] PLATELET COUNT 193 140 - 440 02/08/2022 [facility] thou/cu mm 4:21 PM CDT [facility] MPV 9.9 6.5 - 11.0 02/08/2022 [facility] fL 4:21 PM CDT [facility] Specimen Anatomical Collection Method / Collection Time Recei vanessa Time (Source) Location / Volume Laterality Blood BLOOD SPECIMEN / Venipuncture / 02/08/2022 4:11 2021 4:12 Unknown Unknown PM CDT PM CDT Jose Linares MD HEMATOLOGY Performing Organization Address City/State/ZIP Code Phon e Number [facility] [address] [place] [address] ECHO COMPLETE WO CONTRAST (01/30/2022 4:39 PM [...] CDT ECHOCARDIOGRAM NICKY TRUJILLO ?Accessio n#: ?? [id number] : ?1950 72 years Study Date: ?? 01/30/2022 4:03:38 PM Gender: M ? BP: ? 115/61 mmHg Height: 173.00 cm ? BSA: ?2.47 m? ?? Weight: 141.00 kg ? Tech: ? MJW ?R emigdio PETERSEN: CRISTY PEDRAZA BECKY Site: ? [facility] Reading Location: Mobile-OP Procedure: 2D, [...] . This study was interpreted by an [facility] redited facility. CC: Med/Surg - IP [facility]. ??Final ?? Procedure Note Mykel Hernandez MD - 01/30/2022For matting of this note might be different from the original. ECHOCARDIOGRAM NICKY TRUJILLO : 1950 72 years Study Date: 2021 4:03:38 PM Gender: M BP: 115/61 mmHg Height: 173.00 cm BSA: 2.47 m? ?? Weight: 141.00 kg Tech: W Referring MD: CRISTY PENA Site: [facility] Reading Location: Mobile-OP Procedure: 2D, Color Doppler [...] . This study was interpreted by an [facility] redited facility. CC: Med/Surg - IP [facility]. Final Cristy Pena MD ECHO ORD SCAN-CT INTERPRETATION (01/29/2022 12:00 AM CDT) Narrative This result has an attachment that is no t available. Scanner OTHER (ABNORMAL) RED CELL MORPHOLOGY (01/17/2022 3:28 PM CDT) [facility] Method Time Signature ELLIPTOCYTES Few 01/17/2022 [facility] 4:01 PM [facility] RBC COMMENT Present RBC 01/17/2022 [facility] (A) morphology 4:01 PM T [facility] normal, RBC morphology within normal limits for newborns. LARGE PLATELETS Present 01/17/2022 [facility] 4:01 PM [facility] Specimen Anatomical Collection Method / Collection Time Recei vanessa Time (Source) Location / Volume Laterality Blood BLOOD SPECIMEN / Venipuncture / 01/17/2022 3:28 2021 3:29 Unknown Unknown PM CDT PM CDT Jose Linares MD HEMATOLOGY Performing Organization Address City/State/ZIP Code Phon e Number [facility] [address] [place] [address] PLATELET ESTIMATE (01/17/2022 3:28 PM CDT) [facility] Method Time Signature PLATELET Adequate Adequate, No 01/17/2022 [facility] ESTIMATE estimate 4:01 PM CDT [facility] Specimen Anatomical Collection Method / Collection Time Recei vanessa Time (Source) Location / Volume Laterality Blood BLOOD SPECIMEN / Venipuncture / 01/17/2022 3:28 2021 3:29 Unknown Unknown PM CDT PM CDT Jose Linares MD HEMATOLOGY Performing Organization Address City/[facility]/ZIP Code Phon e Number [facility] [address] [place] [address] (ABNORMAL) MANUAL DIFFERENTIAL (01/17/2022 3:28 PM CDT) [facility] Method Time Signature % NEUTROPHILS 61.0 % 01/17/2022 [facility] 4:01 PM CDT [facility] % LYMPHOCYTES 26.0 % 01/17/2022 [facility] 4:01 PM CDT [facility] % MONOCYTES 9.0 % 01/17/2022 [facility] 4:01 PM CDT [facility] % EOSINOPHILS 4.0 % 01/17/2022 [facility] 4:01 PM CDT [facility] % BASOPHILS 0.0 % 01/17/2022 [facility] 4:01 PM CDT [facility] NEUTROPHILS 5.9 1.7 - 7.0 01/17/2022 [facility] ABSOLUTE thou/cu mm 4:01 PM T [facility] LYMPHOCYTES 2.5 0.9 - 2.9 01/17/2022 [facility] thou/cu mm 4:01 PM T [facility] MONOCYTES 0.9 (H) <0.9 01/17/2022 [facility] thou/cu mm 4:01 PM CDT [facility] EOSINOPHILS 0.4 <0.5 01/17/2022 [facility] ABSOLUTE thou/cu mm 4:01 PM CDT [facility] BASOPHILS 0.0 <0.3 01/17/2022 [facility] ABSOLUTE thou/cu mm 4:01 PM CDT [facility] Specimen Anatomical Collection Method / Collection Time Recei vanessa Time (Source) Location / Volume Laterality Blood BLOOD SPECIMEN / Venipuncture / 01/17/2022 3:28 2021 3:29 Unknown Unknown PM CDT PM CDT Jose Linares MD HEMATOLOGY Performing Organization Address City/State/ZIP Code Phon e Number [facility] [address] [place] [address] SCAN-RADIOLOGY REPORT (01/10/2022 12:00 AM CDT) Narrative [...] Group MEDICARE PART B MEDICARE PART B [id number] 2014-Presen ATTN: CLAIMS - HB USE ONLY HB ONLY t [address] [place] [address] MEDICARE PART A MEDICARE PART A [id number] 2014-Presen ATTN: CLAIMS - HB USE ONLY HB ONLY t [address] [place] [address] BLUE CROSS BLUE CROSS [id number] 2018-Presen [address] [place] [id number] Advance Directives Latest Code Status on File [...] 12:51 PM 04/15/2011 6:21 PM Care Teams Fuel Efficient Automobile 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
--- NOTE | 2022-04-03 10:57 | W.ANESCHARGE ---
Anesthesia Charges Start Date/Time Anesthesia Start Date: 04/03/22 Anesthesia Start Time: 09:55 Stop Date/Time Anesthesia Stop Date: 04/03/22 Anesthesia Stop Time: 10:55 Summary Emergency: No Extremes of Age: Over 70-CPT [id number]
== END 2022-04-03 08:40 | disposition home or self-care (01) ==
LOC: OP CLINIC 08:40
PROVIDERS: PCP Family Medicine; Visit Provider Internal Medicine Gastroenterology
DX: Z12.11 Encounter for screening for malignant neoplasm of colon (principal); K63.5 Polyp of colon; Q43.8 Other specified congenital malformations of intestine; Z98.0 Intestinal bypass and anastomosis status; Z86.010 Personal history of colon polyps; K44.9 Diaphragmatic hernia without obstruction or gangrene; K22.89 Other specified disease of esophagus; K22.70 Barrett's esophagus without dysplasia; K31.7 Polyp of stomach and duodenum; D50.9 Iron deficiency anemia, unspecified
CPT/HCPCS: 00813; 43239; 45385; 88305; 99100; J2704; J3490

== ENCOUNTER 2022-09-25 20:45 | Outpatient (CLI) | payer MEDICARE, SELFPAY | END 2022-09-25 20:46 | disposition home or self-care (01) | LOC: AMB 10-02 05:46 | PROVIDERS: PCP Family Medicine; Visit Provider Family Medicine | DX: R41.82 Altered mental status, unspecified (principal) | CPT/HCPCS: A0425; A0427 ==

== ENCOUNTER 2022-09-25 21:33 | Inpatient (IN) | payer MEDICARE, SELFPAY ==
[2022-09-25] VITALS (22 sets, daily range): BP systolic 91–118; BP diastolic 43–76; PULSE 98–140; RESP 18; TEMP 36.7; O2SAT 92–99; BMI 44.1
--- OUTSIDE RECORDS SUMMARY | 2022-09-25 21:37 | XMS_ITS | Continuity of Care Document ---
Author Name Unknown Organization [facility] Address [address] [address] [place] [address] Phone Care Team Providers Care Mixer Operator Helper Hot Metal Name Role Phone Marita PETERSEN, Greg Unavailable Unavailable Allergies, Adverse Reactions, Alerts Substance Reaction Status Criticality No Known Allergies Active No Inform ation Medications Medication Instructions Dosage Effective Dates (start - stop) Status Comments metformin 1,000 mg tablet take 1 tablet by oral route 2 times every day with morning and evening meals 1000 MG - Active Flomax 0.4 mg capsule take 1 capsule by oral route every day 0.4 MG - Active pantoprazole 40 mg tablet,delayed release take 1 tablet by oral route 2 times every day 40 MG - Active potassium chloride ER 20 mEq tablet,extended release take 1 tablet by oral route 2 times every day with food 20 MEQ - Active cholecalciferol (vitamin D3) 25 mcg (1,000 unit) capsule take 1 each by oral route every day 1 each - Active Toprol XL 50 mg tablet,extended release take 1 tablet by oral route every day 50 MG - Active magnesium oxide 400 mg (241.3 mg magnesium) tablet - Active Lipitor 40 mg tablet take 1 tablet by oral route every day 40 MG - Active Celexa 10 mg tablet take 1 tablet by oral route every day 10 MG - Active torsemide 5 mg tablet take 2 tablet by oral route every day 10 MG - Active Mucinex 600 mg tablet, extended release take 1 tablet by oral route every 12 hours as needed 600 MG - Active Procedures Procedure Date Offic/outpt E&m [place] Plascencia 3 Advance Directives Directive Yes / No Effective Date File Name No Information Encounters Encounter Description Practice Location Reason(s) For Visit Diagnoses Date Provider Providers Copied on Encounter [facility], [address] [address], [place], [place], [id number], tel:[phone] [facility] No Information 3 Marita Garza. [address], [id number], [place]. tel:[phone] Offic/outpt E&m Ramsey [facility] Thais [facility], [address] [address], [place], [place], [id number], tel:[phone] [facility] GI Symptoms or Concerns (chief complaint) Duodenal adenoma 3 Marita Garza. [address] [place] [address], [id number], [place]. tel:[phone] Referring Provider: Rayshawn Vega, [address] , [place], [address]. tel:[phone] [facility], [address] [address], [place], [place], [id number], tel:[phone] No Information 2 No Information Referring Provider: Rayshawn Vega, [address] , [place], [address]. tel:[phone] Family History Family Member Type Diagnosis Age At Onset Father Problem (finding) Peptic ulcer disease Father Problem (finding) Cancer, colon Immunizations Vaccine Date Status Comments SARS-COV-2 (COVID-19) vaccin e, mRNA, spike protein, LNP, bivalent booster, preservative free, 30 mcg/0.3 mL dose, estrella-sucrose formulation administered Note: [facility] bi-d irectional interface ; Source: Other Registry influenza, seasonal vaccine, quadrivalent, adjuvanted, 0.5mL dose, preservative free administered Note: [facility] bi-di rectional interface ; Source: Other Registry influenza, seasonal vaccine, quadrivalent, adjuvanted, .5mL dose, preservative free administered Note: [facility] bi-di rectional interface ; Source: Other Registry SARS-COV-2 (COVID-19) vaccin e, mRNA, spike protein, LNP, bivalent booster, preservative free, 50 mcg/0.5 mL or 25 mcg/0.25 mL dose administered Note: [facility] bi-direct ional interface ; Source: Other Registry SARS-COV-2 (COVID-19) vaccin e, mRNA, spike protein, LNP, preservative free, 100 mcg/0.5mL dose or 50 mcg/0.25mL dose administered Note: [facility] bi -directional interface ; Source: Other Registry SARS-COV-2 (COVID-19) vaccin e, mRNA, spike protein, LNP, preservative free, 100 mcg/0.5mL dose or 50 mcg/0.25mL dose administered Note: [facility] bi -directional interface ; Source: Other Registry influenza, high-dose seasona l, quadrivalent, 0.7mL dose, preservative free administered Note: [facility] bi-direct ional interface ; Source: Other Registry influenza, high-dose seasona l, quadrivalent, .7mL dose, preservative free administered Note: [facility] bi-direct ional interface ; Source: Other Registry SARS-COV-2 (COVID-19) vaccin e, mRNA, spike protein, LNP, preservative free, 100 mcg/0.5mL dose or 50 mcg/0.25mL dose administered Note: [facility] bi -directional interface ; Source: Other Registry SARS-COV-2 (COVID-19) vaccin e, mRNA, spike protein, LNP, preservative free, 100 mcg/0.5mL dose or 50 mcg/0.25mL dose administered Note: [facility] bi -directional interface ; Source: Other Registry Seasonal trivalent influenza vaccine, adjuvanted, preservative free administered Note: [facility] bi-direct ional interface ; Source: Other Registry Seasonal trivalent influenza vaccine, adjuvanted, preservative free administered Note: [facility] bi-direct ional interface ; Source: Other Registry influenza, high dose seasona l, preservative-free administered Note: [facility] bi-direct ional interface ; Source: Other Registry Seasonal trivalent influenza vaccine, adjuvanted, preservative free administered Note: [facility] bi-direct ional interface ; Source: Other Registry Pneumovax administered Note: [facility] bi-d irectional interface ; Source: Other Registry influenza virus vaccine, unspecified formulation administered Note: [facility] bi-di rectional interface ; Source: Other Registry influenza, high dose seasona l, preservative-free administered Note: [facility] bi-direct ional interface ; Source: Other Registry Prevnar 13 administered Note: [facility] bi-d irectional interface ; Source: Other Registry influenza, high dose seasona l, preservative-free administered Note: [facility] bi-direct ional interface ; Source: Other Registry influenza, high dose seasona l, preservative-free administered Note: [facility] bi-direct ional interface ; Source: Other Registry zoster vaccine, live administered Note: [facility] bi-directional interface ; Source: Other Registry Influenza, seasonal, injectable administe red Note: [facility] bi- directional interface ; Source: Other Registry Novel [id number], all formulations administered Note: [facility] bi-direct ional interface ; Source: Other Registry Influenza, seasonal, injectable administe red Note: [facility] bi- directional interface ; Source: Other Registry Influenza, seasonal, injectable administe red Note: [facility] bi- directional interface ; Source: Other Registry Influenza, seasonal, injectable administe red Note: [facility] bi- directional interface ; Source: Other Registry tetanus toxoid, reduced diphtheria toxoid, and acellular pertussis vaccine, adsorbed administered Note: [facility] b i-directional interface ; Source: Other Registry Pneumovax administered Note: [facility] bi-d irectional interface ; Source: Other Registry Influenza, seasonal, injectable administe red Note: [facility] bi- directional interface ; Source: Other Registry Payers Payer name Insurance type Covered democrat ID Bg ermy(s) [place] [employer] Medicare Advantage BL [id number] Social History Type Description Quantity Date Captured Comments Sex Male Smoking Status No Information Chief Complaint And Reason For Visit No Information Reason For Referral Reason For Referral No Information Plan Of Treatment Date Type Action Status Referral Ordered: ERCP Appointment date/timeframe: 07/04/2022 ordered Referral Ordered: EUS Appointment date/timeframe: 07/04/2022 ordered Appointment Sulaiman Trujillo BOOKED History Of Present Illness Encounter Date Complaint History Of Prese nt Illness GI Symptoms or Concerns This is a very pleasant 72-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 The patient states that he was in his usual state of health underwent an upper endoscopy and colonoscopy with an outside failure analysis technician. His upper endoscopy demonstrated 3 centimeter polyp in the 2nd duodenum. Polyp was biopsied consistent with a duodenal adenoma. Given the large size adenoma it was not removed endoscopically referred for further investigation possible endoscopic removal if possible. The patient states that he has been feeling well and denies any jaundice or dark urine. He is not had any black or bloody stools and overall feels well. He did recently undergo prostate cancer surgery. The patient states that he is had gastric surgery Tara's it was called a gastric sleeve. The patient denies chest pain or shortness of breath and has not fevers sweats or chills. The patient has not had any nausea or vomiting. Is here for further investigation of duodenal polyp that was found en Functional Status Date Functional Assessmen t No Information Instructions Date Instruction Additional Infor mation Large duodenal adeno ma Endoscopic ultrasound with endoscopy for possible endoscopic removal of the adenoma. If the entire adenoma can not be removed he may require additional procedures to remove this. If the polyp clearly involves the major papilla this may require ERCP with stenting and possible follow-up procedures as needed. Related to Duodenal adenoma Assessments Type Assessment Date No Information Patient Care Teams Name Effective Dates (start - stop) Status Members No Information
--- NOTE | 2022-09-25 21:40 | CRLHL7_ITS ---
For Patients: As a result of the Cures Act, medical imaging exams and procedure reports are released immediately into your electronic medical record. You may view this report before your referring provider. If you have questions, please contact your health care provider. INDICATION: Cardiac arrest. TECHNIQUE: Portable supine AP view of the chest. COMPARISON: 01/10/2022. FINDINGS: Limited by body habitus. Stable cardiomegaly. Pulmonary vasculature is within normal limits. Lungs are grossly clear. No appreciable pleural fluid or pneumothorax on this supine study. Old healed right rib fracture. IMPRESSION: No radiographic signs of acute cardiopulmonary disease. Dictated by Valdo Montoya MD @ 09/25/2022 10:48:22 PM (Electronically Signed)
[2022-09-25] MEDS: ADENOSINE 6 MG/2ML INJ IVP (21:47)
[2022-09-25] MEDS: ADENOSINE 6 MG/2ML INJ 12 MG IVP (21:49)
--- OUTSIDE RECORDS SUMMARY | 2022-09-25 21:49 | XMS_ITS | Continuity of Care Document ---
Author Name Unknown Organization 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, [address] [address], [place], [place], [id number], tel:[phone] [facility] No Information 3 Marita Garza. [address], [id number], [place]. tel:[phone] Offic/outpt E&m Ramsey [facility]ais [facility], [address] [address], [place], [place], [id number], tel:[phone] [facility] GI Symptoms or Concerns (chief complaint) Duodenal adenoma 3 Marita Garza. [address] [place] [address], [id number], [place]. tel:[phone] Referring Provider: Rayshawn Vega, [address] , [place], [address]. tel:[phone] [facility], [address] [address], [place], [place], [id number], tel:[phone] No Information 2 No Information Referring Provider: Rayshawn Vega, [address] , [place], [address]. tel:[phone] Family History Family Member Type Diagnosis Age At Onset Father Problem (finding) Peptic ulcer disease Father Problem (finding) Cancer, colon Immunizations Vaccine Date Status Comments SARS-COV-2 (COVID-19) vaccin e, mRNA, spike protein, LNP, bivalent booster, preservative free, 30 mcg/0.3 mL dose, estrella-sucrose formulation administered Note: [facility] bi-d irectional interface ; Source: Other [...] directional interface ; Source: Other Registry Novel [id number], all formulations administered Note: [facility] bi-direct ional [...] Registry Payers Payer name Insurance type Covered libertarian ID Bg remy(s) [place] [employer] Medicare Advantage BL [id number] Social History Type Description Quantity Date [...] upper endoscopy and colonoscopy with an outside tour sales representative. His upper endoscopy demonstrated 3 centimeter polyp [...]
--- OUTSIDE RECORDS SUMMARY | 2022-09-25 21:49 | XMS_ITS | Continuity of Care Document ---
Author Name Unknown Organization [facility] [place] Address [address] [address] [place] [address] Phone Care Team Providers Care Ignition Specialist Name Role Phone Marita PETERSEN, Greg Unavailable [...] Diagnoses Date Provider Providers Copied on Encounter [facility], [address] [address], [place], [place], [id number], tel:[phone] [facility] No Information 3 Marita Garza. [address], [id number], [place]. tel:[phone] Offic/outpt E&m Ramsey [facility] Thais [facility], [address] [address], [place], [place], [id number], tel:[phone] [facility] GI Symptoms or Concerns (chief complaint) Duodenal adenoma 3 Marita Garza. [address] [place] [address], [id number], [place]. tel:[phone] Referring Provider: Rayshawn Vega, [address] , [place], [address]. tel:[phone] [facility], [address] [address], [place], [place], [id number], tel:[phone] No Information 2 No Information Referring Provider: Rayshawn Vega, [address] , [place], [address]. tel:[phone] Family History Family Member Type Diagnosis Age At Onset Father Problem (finding) Peptic ulcer disease Father Problem (finding) Cancer, colon Immunizations Vaccine Date Status Comments SARS-COV-2 (COVID-19) vaccin e, mRNA, spike protein, LNP, bivalent booster, preservative free, 30 mcg/0.3 mL dose, estrella-sucrose formulation administered Note: [facility] bi-d irectional interface ; Source: Other Registry [...] directional interface ; Source: Other Registry Novel [id number], all formulations administered Note: [facility] bi-direct ional [...] Insurance type Covered libertarian ID Bg remy(s) [place] Cross Medicare Advantage BL [id number] Social History Type Description Quantity Date [...] upper endoscopy and colonoscopy with an outside physician anesthesiologist. His upper endoscopy demonstrated 3 centimeter polyp [...]
[2022-09-25 21:50] LABS: Lactate* 2.9 mmol/L (0.5-1.9)
[2022-09-25 21:52] LABS: Basophils Absolute Auto 0.02 K/uL (0.00-0.30); Basophils Percent Auto 0.2 % (0.0-3.0); Eosinophils Absolute Auto 0.08 K/uL (0.00-0.50); Eosinophils Percent Auto 0.9 % (0.0-7.0); Hematocrit 31.7 % (37.0-53.0); Hemoglobin* 10.4 gm/dL (13.5-17.5); Immature Granulocytes Abs Auto 0.02 K/uL (0.00-0.30); Immature Granulocytes Pct Auto 0.2 %; Lymphocytes Percent Auto 7.8 % (20-44); Mean Corpuscular HGB Conc 33 gm/dL (32-36); Mean Corpuscular Hemoglobin 27 pg (26-34); Mean Corpuscular Volume 83 fL (80-100); Monocytes Percent Auto 7.3 % (0.0-11.0); Neutrophils Percent Auto 83.6 % (42.0-72.0); Platelet Count* 174 K/uL (140-440); White Blood Count* 8.74 K/uL (4.50-11.00)
--- NOTE | 2022-09-25 21:54 | ED.GENADULT ---
HPI - General Adult General Time Seen by Provider: 21:54 Date Seen: 09/25/22 Chief complaint: Arrhythmia/Palpitations Stated complaint: heart attack Time Seen by Provider: 09/25/22 21:54 Source: patient Mode of arrival: ambulatory Limitations: no limitations History of Present Illness HPI narrative: 72-year-old male who presents today with weakness. This is been going on for couple of days. Family noted confusion per EMS. Patient himself has come no complaints other than generalized weakness. Denies recent fall but does note that he fell about a week or so ago and broke a rib. He denies chest pain or shortness of breath. Initial EMS call for possible STEMI Related Data Home Medications Medication Instructions Recorded Confirmed atorvastatin 40 mg tablet 40 mg PO DAILY 01/10/22 01/29/22 citalopram 10 mg tablet 10 mg PO DAILY 01/10/22 01/29/22 metformin 1,000 mg tablet 1,000 mg PO BID 01/10/22 01/29/22 metoprolol succinate 50 mg 50 mg PO DAILY 01/10/22 01/29/22 tablet,extended release 24 hr tamsulosin 0.4 mg capsule 0.4 mg PO DAILY 01/10/22 01/29/22 apixaban 5 mg tablet (Eliquis) 5 mg PO BID 01/23/22 01/29/22 cholecalciferol (vitamin D3) 25 1,000 unit PO DAILY 01/23/22 01/29/22 mcg (1,000 unit) tablet guaifenesin 600 mg tablet, 600 mg PO BID PRN 01/23/22 01/29/22 extended release 12 hr (Mucinex) magnesium oxide 400 mg (241.3 mg 400 mg PO DAILY 01/23/22 01/29/22 magnesium) tablet pantoprazole 40 mg tablet,delayed 40 mg PO DAILY 01/23/22 01/29/22 release ascorbic acid (vitamin C) 500 mg 500 mg PO DAILY 01/29/22 01/29/22 chewable tablet (Acerola C) acetaminophen 500 mg tablet 1,000 mg PO Q6H PRN 01/30/22 01/30/22 omega 0-obq-vlo-fish oil 100 1 cap PO DAILY 01/30/22 01/30/22 mg-160 mg-1,000 mg capsule (Fish Oil) Previous Rx's Medication Instructions Recorded potassium chloride 10 mEq 20 meq (2 x 10 mEq) PO DAILY #60 02/03/22 capsule,extended release caps torsemide 10 mg tablet 10 mg PO DAILY #30 tabs 02/03/22 Allergies Allergy/AdvReac Type Severity Reaction Status Date / Time No Known Drug Allergies Allergy Verified 09/26/22 00:06 [facility] Medical History (Updated 09/26/22 @ 00:14 by Mykel Mckinnon MD) Atrial arrhythmia ?I49.8 - Other specified cardiac arrhythmias (ICD-10) Abnormal CT of brain ?R90.89 - Other abnormal findings on diagnostic imaging of central nervous system (ICD-10) Episode of gagging ?R19.8 - Other specified symptoms and signs involving the digestive system and abdomen (ICD-10) Seborrhea of face ?L21.9 - Seborrheic dermatitis, unspecified (ICD-10) Nausea ?R11.0 - Nausea (ICD-10) Microcytic anemia ?D50.9 - Iron deficiency anemia, unspecified (ICD-10) Steroid-induced hyperglycemia ?R73.9 - Hyperglycemia, unspecified (ICD-10) ?T38.0X5A - Adverse effect of glucocorticoids and synthetic analogues, initial encounter (ICD-10) Pituitary adenoma with extrasellar extension ?D35.2 - Benign neoplasm of pituitary gland (ICD-10) Benign non-nodular prostatic hyperplasia with lower urinary tract symptoms ?N40.1 - Benign prostatic hyperplasia with lower urinary tract symptoms (ICD-10) ASHD (arteriosclerotic heart disease) ?I25.10 - Atherosclerotic heart disease of [place] coronary artery without angina pectoris (ICD-10) Kidney stones ?N20.0 - Calculus of kidney (ICD-10) Aortic stenosis ?I35.0 - Nonrheumatic aortic (valve) stenosis (ICD-10) MRSA bacteremia ?R78.81 - Bacteremia (ICD-10) ?B95.62 - Methicillin resistant Staphylococcus aureus infection as the cause of diseases classified elsewhere (ICD-10) Postoperative hypotension ?I95.81 - Postprocedural hypotension (ICD-10) Morbid obesity ?E66.01 - Morbid (severe) obesity due to excess calories (ICD-10) Hyperlipidemia ?E78.5 - Hyperlipidemia, unspecified (ICD-10) Abnormal colonoscopy ?R93.3 - Abnormal findings on diagnostic imaging of other parts of digestive tract (ICD-10) Hx of colonic polyps ?Z86.010 - Personal history of colonic polyps (ICD-10) Sleep apnea ?G47.30 - Sleep apnea, unspecified (ICD-10) Malignant melanoma of right upper extremity ?C43.61 - Malignant melanoma of right upper limb, including shoulder (ICD-10) Hypertension ?I10 - Essential (primary) hypertension (ICD-10) Diabetes mellitus type 2 in obese ?E11.69 - Type 2 diabetes mellitus with other specified complication (ICD-10) ?E66.9 - Obesity, unspecified (ICD-10) Surgical History (Updated 01/29/22 @ 14:48 by Gina Carreon MD) 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) H/O vasectomy ?Z98.52 - Vasectomy status (ICD-10) S/P skin biopsy ?Z98.890 - Other specified postprocedural states (ICD-10) H/O nephrostomy H/O lithotripsy ?Z98.890 - Other specified postprocedural states (ICD-10) S/P laparoscopic sleeve gastrectomy ?Z98.84 - Bariatric surgery status (ICD-10) History of total right hip arthroplasty ?Z96.641 - Presence of right artificial hip joint (ICD-10) H/O umbilical hernia repair ?Z98.890 - Other specified postprocedural states (ICD-10) ?Z87.19 - Personal history of other diseases of the digestive system (ICD-10) H/O hemorrhoidectomy ?Z98.890 - Other specified postprocedural states (ICD-10) Hx of colonoscopy ?Z98.890 - Other specified postprocedural states (ICD-10) H/O right hemicolectomy ?Z90.49 - Acquired absence of other specified parts of digestive tract (ICD-10) Hx of appendectomy ?Z90.49 - Acquired absence of other specified parts of digestive tract (ICD-10) Family History (Updated 01/29/22 @ 14:51 by Gina Carreon MD) Father Colon cancer Obesity Sister Diabetes Obesity Mother Heart disease High blood pressure Hyperlipidemia Obesity Stroke Social History (Updated 01/29/22 @ 18:38 by Gina Carreon MD) Narrative: [place] Currently staying in [id number] at his ex-'s house. Wishes to be full code. Denies EtOH use in the last month. Denies tobacco or recreational drug use. Highest level of school completed/degree received: Associate degree: occupational, technical, vocational program Smoking Status: Former smoker What tobacco products do you use: cigarettes Years smoked: 30 Smoking quit date/years: >15 years ago Do you use any of these nicotine containing products: None Second hand tobacco smoke exposure: No How often do you have a drink containing alcohol: 2-4 times a month Alcohol type: beer How many standard drinks containing alcohol do you have on a typical day: 1 or 2 How often do you have six or more drinks on one occasion: Less than monthly AUDIT-C Alcohol total score: 3 Non-prescribed substance use: denies use Caffeine: Yes (3-4 daily) service: No Exam Narrative: Exam Narrative: General: Well-developed and well-nourished, no acute distress Head: Atraumatic and normocephalic Eyes: Pupils are equal reactive, extraocular motions intact, conjunctiva clear ENT: External nose and ears are normal, posterior pharynx without erythema or exudate Neck: No midline cervical tenderness, full spontaneous range of motion the neck, trachea midline, no adenopathy Heart: Tachycardic rate and rhythm no murmurs or thrills Lungs: Clear to auscultation bilaterally without wheezes or crackles Abdomen: Soft, nontender, nondistended with active bowel sounds Musculoskeletal: No tenderness, deformity, moderate bilateral lower extremity edema Neurologic: Awake, alert, and oriented x3, no gross focal neurologic deficits, cranial nerves intact as tested Psych: Mood and affect are appropriate Skin: Pale Const: Vital Signs, click to edit/add: Vital Signs - 24 hr 09/25/22 21:46 09/25/22 21:49 09/25/22 21:51 Temperature Pulse Rate 139 H 139 H 140 H Pulse Rate [Pulse Oximeter] Respiratory Rate Blood Pressure 91/55 L 96/43 L Blood Pressure [Le ft Upper Arm] Pulse Oximetry 94 93 92 Oxygen Delivery Me thod Oxygen Flow Rate 09/25/22 21:56 09/25/22 21:58 09/25/22 21:59 Temperature 98.1 F Pulse Rate 135 H 139 H Pulse Rate [Pulse Oximeter] 98 Respiratory Rate 18 Blood Pressure 100/62 111/65 Blood Pressure [Le ft Upper Arm] 117/59 L Pulse Oximetry 95 96 94 Oxygen Delivery Me thod Nasal Cannula Oxygen Flow Rate 2 09/25/22 22:00 09/25/22 22:01 09/25/22 22:02 Temperature Pulse Rate 135 H 135 H 135 H Pulse Rate [Pulse Oximeter] Respiratory Rate Blood Pressure 107/65 Blood Pressure [Le ft Upper Arm] Pulse Oximetry 97 97 97 Oxygen Delivery Me thod Oxygen Flow Rate 09/25/22 22:06 09/25/22 22:15 09/25/22 22:22 Temperature Pulse Rate 133 H 130 H 134 H Pulse Rate [Pulse Oximeter] Respiratory Rate Blood Pressure 118/76 91/54 L Blood Pressure [Le ft Upper Arm] Pulse Oximetry 96 99 98 Oxygen Delivery Me thod Oxygen Flow Rate 09/25/22 22:30 09/25/22 22:31 09/25/22 22:45 Temperature Pulse Rate 130 H 130 H 130 H Pulse Rate [Pulse Oximeter] Respiratory Rate Blood Pressure 97/58 L Blood Pressure [Le ft Upper Arm] Pulse Oximetry 98 98 97 Oxygen Delivery Me thod Oxygen Flow Rate 09/25/22 22:46 09/25/22 23:00 09/25/22 23:01 Temperature Pulse Rate 132 H 129 H 129 H Pulse Rate [Pulse Oximeter] Respiratory Rate Blood Pressure 107/59 L 108/59 L Blood Pressure [Le ft Upper Arm] Pulse Oximetry 97 96 96 Oxygen Delivery Me thod Oxygen Flow Rate 09/25/22 23:15 09/25/22 23:17 09/25/22 23:30 Temperature Pulse Rate 126 H 127 H 125 H Pulse Rate [Pulse Oximeter] Respiratory Rate Blood Pressure 105/57 L Blood Pressure [Le ft Upper Arm] Pulse Oximetry 97 97 97 Oxygen Delivery Me thod Oxygen Flow Rate 09/25/22 23:31 Temperature Pulse Rate 126 H Pulse Rate [Pulse Oximeter] Respiratory Rate Blood Pressure 99/53 L Blood Pressure [Le ft Upper Arm] Pulse Oximetry 98 Oxygen Delivery Me thod Oxygen Flow Rate Course Course Hospital Course: Patient seen examined, prior records are reviewed. Patient presents today with weakness and some confusion per family. On initial arrival, patient is found to be tachycardic and hypotensive. Appears pale and seems mildly confused although generally answers questions appropriately. Initial EKG is a wide complex tachycardia rate of 140. Patient denies chest pain, EKG does not demonstrate any acute ischemic changes. Patient was given adenosine 6 mg with no effect on rate, 12 mg did reduce heart rate to about 125 but was nondiagnostic for underlying atrial rhythm. Given hypotension and white complex tachycardia, consider synchronized cardioversion. Reevaluation(s) Reevaluation #1: Review of prior records shows prior EKG with right bundle-branch block, appears very similar today other than increased rate today. Additionally reviewed prior echocardiogram which shows EF 70 75% with sydt-no-syoeobax aortic stenosis. Time: 21:59 Reevaluation #2: Labs independently interpreted by me so far demonstrate normal white blood count and stable anemia. Lactate slightly elevated and IV fluids have been initiated. Patient is afebrile but is tachycardic and hypotensive, this could be from dehydration, electrolyte disturbance, or sepsis. Time: 22:25 Reevaluation #3: Labs independently interpreted by me- Basic panel with mild hyperglycemia, no evidence for DKA. Neck knee exam is critically low at 1, IV replacement ordered. Troponin is reassuring. Heart rate improved to the high 120s after fluids, will continue fluids and continue close monitoring. Time: 22:43 Additional Reevaluation(s): 12:13 AM heart rate slightly improved, patient did not receive metoprolol. He has been transferred to the floor and Dr. Nina saw him in the emergency department. CT scan of the head independently interpreted by me does not demonstrate any acute findings, CT scan of the chest does not demonstrate acute pulmonary embolism, infiltrate, possible tiny bilateral effusions. Vital Signs Vital signs: Initial Vital Signs Pulse Rate 139 H 09/25/22 21:46 Pulse Oximetry 94 09/25/22 21:46 Vital Signs Pulse Rate 139 H 09/25/22 21:46 Pulse Oximetry 94 09/25/22 21:46 Temperature 98.1 F 09/25/22 21:59 Pulse Rate 126 H 09/25/22 23:31 Respiratory Rate 18 09/25/22 21:59 Blood Pressure 99/53 L 09/25/22 23:31 Pulse Oximetry 98 09/25/22 23:31 Oxygen Delivery Method Nasal Cannula 09/25/22 21:59 Oxygen Flow Rate 2 09/25/22 21:59 Medical Decision Making Lab Data Labs: Lab Results 09/25/22 09/25/22 09/25/22 Range/Units 21:40 21:41 22:16 WBC 8.74 (4.50-11.00) K/uL RBC 3.80 L (4.30-5.90) m/uL Hgb 10.4 L (13.5-17.5) gm/dL Hct 31.7 L (37.0-53.0) % MCV 83 (80-100) fL MCH 27 (26-34) pg MCHC 33 (32-36) gm/dL RDW Coeff of Daniel 15.0 (11.5-15.5) % Plt Count 174 (140-440) K/uL Neut % (Auto) 83.6 H (42.0-72.0) % Lymph % (Auto) 7.8 L (20-44) % [place] % (Auto) 7.3 (0.0-11.0) % Eos % (Auto) 0.9 (0.0-7.0) % Baso % (Auto) 0.2 (0.0-3.0) % Neut # (Auto) 7.30 H (1.7-7.0) K/uL Lymph # (Auto) 0.70 L (0.90-2.90) K/uL [place] # (Auto) 0.60 (0.00-0.90) K/UL Eos # (Auto) 0.08 (0.00-0.50) K/uL Baso # (Auto) 0.02 (0.00-0.30) K/uL INR 1.13 H (0.91-1.10) Sodium 135 (135-149) mmol/L Potassium 3.3 L (3.6-5.1) mmol/L Chloride 100 (96-114) mmol/L Carbon Dioxide 24 (20-32) mmol/L BUN 15 (7-30) mg/dL Creatinine 0.6 (0.5-1.5) mg/dL Estimated Creat Clear 73.29 Estimated GFR 103 ml/min Glucose 178 H (60-115) mg/dL Lactate 2.9 H (0.5-1.9) mmol/L Calcium 8.9 (8.4-10.6) mg/dL Magnesium 1.0 L (1.5-2.6) mg/dL Total Bilirubin 0.5 (0.1-1.5) mg/dL Direct Bilirubin 0.2 (0.0-0.5) mg/dL AST 23 (12-35) U/L ALT 18 (4-50) U/L Alkaline Phosphatase 97 (40-150) U/L NT-Pro-B Natriuret Pep 2690 pg/mL Total Protein 6.1 (6.0-8.3) g/dL Albumin 3.5 (3.3-5.0) g/dL Lab Acknowledgement POC Troponin I 0.02 (0.01-0.04) ng/ml 09/25/22 Range/Units 22:26 WBC (4.50-11.00) K/uL RBC (4.30-5.90) m/uL Hgb (13.5-17.5) gm/dL Hct (37.0-53.0) % MCV (80-100) fL MCH (26-34) pg MCHC (32-36) gm/dL RDW Coeff of Daniel (11.5-15.5) % Plt Count (140-440) K/uL Neut % (Auto) (42.0-72.0) % Lymph % (Auto) (20-44) % [place] % (Auto) (0.0-11.0) % Eos % (Auto) (0.0-7.0) % Baso % (Auto) (0.0-3.0) % Neut # (Auto) (1.7-7.0) K/uL Lymph # (Auto) (0.90-2.90) K/uL [place] # (Auto) (0.00-0.90) K/UL Eos # (Auto) (0.00-0.50) K/uL Baso # (Auto) (0.00-0.30) K/uL INR (0.91-1.10) Sodium (135-149) mmol/L Potassium (3.6-5.1) mmol/L Chloride (96-114) mmol/L Carbon Dioxide (20-32) mmol/L BUN (7-30) mg/dL Creatinine (0.5-1.5) mg/dL Estimated Creat Clear Estimated GFR ml/min Glucose (60-115) mg/dL Lactate (0.5-1.9) mmol/L Calcium (8.4-10.6) mg/dL Magnesium (1.5-2.6) mg/dL Total Bilirubin (0.1-1.5) mg/dL Direct Bilirubin (0.0-0.5) mg/dL AST (12-35) U/L ALT (4-50) U/L Alkaline Phosphatase (40-150) U/L NT-Pro-B Natriuret Pep pg/mL Total Protein (6.0-8.3) g/dL Albumin (3.3-5.0) g/dL Lab Acknowledgement Test Added POC Troponin I (0.01-0.04) ng/ml ECG Data Attestation: I personally reviewed and interpreted this ECG as follows: Prior ECG tracings: available for review Interpretation: Performed at 9:51 p.m. demonstrates wide complex tachycardia rate 138, no acute ST elevations or depressions, right bundle-branch block, normal axis. Compared to prior of January 2022, rate has increased but no other acute changes. Discharge Plan Discharge Clinical Impression: Heart failure with preserved ejection fraction, Aortic stenosis, Sinus tachycardia, Weakness, Hypomagnesemia Prescriptions: No Action atorvastatin 40 mg tablet 40 mg PO DAILY Patient Comments: TAKE ONE TABLET BY MOUTH ONE TIME DAILY metoprolol succinate 50 mg tablet extended release 24 hr 50 mg PO DAILY Patient Comments: TAKE ONE TABLET BY MOUTH ONE TIME DAILY citalopram 10 mg tablet 10 mg PO DAILY Patient Comments: TAKE ONE TABLET BY MOUTH EVERY DAY IN THE MORNING. tamsulosin 0.4 mg capsule 0.4 mg PO DAILY Patient Comments: TAKE ONE CAPSULE BY MOUTH DAILY AFTER A MEAL metformin 1,000 mg tablet 1,000 mg PO BID Patient Comments: TAKE ONE TABLET BY MOUTH TWICE DAILY WITH MEALS magnesium oxide 400 mg (241.3 mg magnesium) tablet 400 mg PO DAILY Patient Comments: Take 1 Tablet (400 mg) by mouth once daily. pantoprazole 40 mg tablet,delayed release (DR/EC) 40 mg PO DAILY Patient Comments: Take 1 Tablet (40 mg) by mouth once daily. cholecalciferol (vitamin D3) 25 mcg (1,000 unit) tablet 1,000 unit PO DAILY Eliquis 5 mg tablet 5 mg PO BID guaifenesin [Mucinex] 600 mg tablet extended release 12hr 600 mg PO BID PRN ascorbic acid (vitamin C) [Acerola C] 500 mg tablet,chewable 500 mg PO DAILY Fish Oil 100-160-1,000 mg capsule 1 cap PO DAILY acetaminophen 500 mg tablet 1,000 mg PO Q6H PRN torsemide 10 mg tablet 10 mg PO DAILY Qty: 30 2RF potassium chloride 10 mEq capsule, extended release 20 meq PO DAILY Qty: 60 2RF Follow Up/Referrals: Jose Linares MD [Primary Care Provider] -
[2022-09-25 21:55] LABS: Slide Review Reflex No
[2022-09-25 21:57] LABS: Troponin, Point-of-Care* 0.02 ng/ml (0.01-0.04)
[2022-09-25] MEDS: 0.9 % SODIUM CHLORIDE 1000 ml 1,000 ML IV (22:00)
[2022-09-25 22:14] LABS: Chloride* 100 mmol/L (96-114); Potassium* 3.3 mmol/L (3.6-5.1); Sodium* 135 mmol/L (135-149)
[2022-09-25 22:17] LABS: Blood Urea Nitrogen* 15 mg/dL (7-30); Carbon Dioxide* 24 mmol/L (20-32); Creatinine* 0.6 mg/dL (0.5-1.5); Est. Creatinine Clearance* 73.29; Estimated Glomerular Filt Rate 103 ml/min
[2022-09-25 22:18] LABS: Calcium* 8.9 mg/dL (8.4-10.6); Glucose* 178 mg/dL (60-115)
[2022-09-25 22:28] LABS: NT Pro B Type NatriureticPept* 2690 pg/mL
[2022-09-25 22:37] LABS: Albumin* 3.5 g/dL (3.3-5.0)
[2022-09-25 22:39] LABS: INR 1.13 (0.91-1.10); Prothrombin Time 15.2 Seconds
[2022-09-25 22:40] LABS: Alkaline Phosphatase* 97 U/L (40-150); Aspartate Amino Transferase* 23 U/L (12-35); Bilirubin Direct* 0.2 mg/dL (0.0-0.5); Bilirubin Total* 0.5 mg/dL (0.1-1.5); Total Protein* 6.1 g/dL (6.0-8.3)
[2022-09-25 22:41] LABS: Alanine Aminotransferase* 18 U/L (4-50)
[2022-09-25] MEDS: MAGNESIUM IV 2 GM/50 ML PIGGYBACK IVPB ×2 (22:53→23:23)
--- NOTE | 2022-09-25 23:12 | CRLHL7_ITS ---
For Patients: As a result of the Century Cures Act, medical imaging exams and procedure reports are released immediately into your electronic medical record. You may view this report before your referring provider. If you have questions, please contact your health care provider. INDICATION: AMS TECHNIQUE: CT chest pulmonary angiogram acquired with IV contrast. COMPARISON: CT 09/11/2022 FINDINGS: Cardiovascular structures: Ectasia of the ascending thoracic aorta measuring 3.9 cm. Heart is mildly enlarged. No pulmonary emboli. Again seen are broncholithiasis in the lower lobes. Basilar ground-glass probable atelectasis. Mediastinum and yoli: No mass or adenopathy. Lungs: Clear. Pleura and pericardium: Small left effusion. Chest wall and axilla: No mass or adenopathy. Bones: Old right rib fractures. Upper abdomen: Calcifications in pancreas probably related to chronic pancreatitis. Gastric bypass changes. Low-attenuation lesions in kidneys incompletely assessed, probably reflect cysts. IMPRESSION: 1. No pulmonary emboli. Basilar ground-glass probable atelectasis. Broncholithiasis in the lower lobes again seen. Please note that all CT scans at this facility use dose modulation, iterative reconstruction, and/or weight-based dosing when appropriate to reduce radiation dose to as low as reasonably achievable. Dictated by Lizette Beasley MD @ 09/26/2022 1:26:25 AM (Electronically Signed)
--- NOTE | 2022-09-25 23:12 | CRLHL7_ITS ---
For Patients: As a result of the Century Cures Act, medical imaging exams and procedure reports are released immediately into your electronic medical record. You may view this report before your referring provider. If you have questions, please contact your health care provider. INDICATION: Altered mental status COMPARISON: MRI 09/06/2021 TECHNIQUE: A CT volumetric acquisition was performed of the brain without IV contrast. Please note that all CT scans at this facility use dose modulation, iterative reconstruction, and/or weight-based dosing when appropriate to reduce radiation dose to as low as reasonably achievable. FINDINGS: Postop changes to the left temporal bone. The sellar/suprasellar region appears similar. No hemorrhage. No hydrocephalus. No extra-axial fluid collection. IMPRESSION: No intracranial hemorrhage or hydrocephalus. 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 Please note that all CT scans at this facility use dose modulation, iterative reconstruction, and/or weight-based dosing when appropriate to reduce radiation dose to as low as reasonably achievable. Dictated by Lencho Delgadillo MD @ 09/26/2022 9:18:26 AM (Electronically Signed)
[2022-09-26] VITALS (9 sets, daily range): BP systolic 101–118; BP diastolic 55–67; PULSE 57–121; RESP 18–28; TEMP 36.9–37.6; O2SAT 92–96; BMI 40.9
--- NOTE | 2022-09-26 00:03 | ED.NURSE ---
patient report given to you PEREZ
--- NOTE | 2022-09-26 00:14 | CRLHL7_ITS ---
For Patients: As a result of the Century Cures Act, medical imaging exams and procedure reports are released immediately into your electronic medical record. You may view this report before your referring provider. If you have questions, please contact your health care provider. INDICATION: Right-sided weakness. History of pituitary adenoma. TECHNIQUE: Brain MRI without contrast. The following sequences were obtained: Sagittal T1 weighted sequence. DWI and ADC mapping sequences. Axial FLAIR and DANNY T2 weighted sequences. Susceptibility or GRE sequence. COMPARISON: Brain MRI from 09/07/2021. FINDINGS: Again demonstrated is the T2 heterogenously hyperintense mass within the left sella, cavernous sinus and left suprasellar/supraclinoid region. It is difficult to differentiate from normal pituitary tissue which is present to the right of midline with accompanying rightward infundibular deviation. Accounting for this, it measures approximately 33 millimeters in AP dimension, 24 millimeters in TR dimension, and 33 millimeters in CC dimension. There is 360 degrees encasement of the left cavernous internal carotid artery, without attenuation of the flow void. Nodule of tumor superior to the anterior clinoid process measures 15 x 19 millimeters in axial plane. It mildly deforms adjacent brain parenchyma and partially encases/inferior medially displaces the left-sided optic chiasm. It also partially encases the supraclinoid ICA and left MCA origin. The lesion is not significantly changed in size/appearance compared to the prior exam. No evidence of acute ischemia. No evidence of acute or chronic intracranial blood products. A few small FLAIR hyperintensities within the supratentorial white matter and brainstem, typical for chronic microvascular ischemic change. No hydrocephalus or extra-axial collections. Posterior fossa is normal. All the major intracranial vascular structures demonstrate normal flow-related signal. The orbital contents are normal. No obstructive sinus disease. Left-sided mastoid effusion. No extracranial soft tissue findings. IMPRESSION: 1. No acute ischemia or other acute intracranial pathology. 2. Stable appearance of the mass within the left sella/cavernous sinus/suprasellar/supraclinoid region, compatible with pituitary adenoma. Left ICA flow void remains patent. 3. Very minor chronic microvascular ischemic changes. Dictated by Angel Marr MD @ 09/26/2022 1:11:42 PM (Electronically Signed)
--- NOTE | 2022-09-26 00:28 | PC.NURSE ---
1205 Pt brought from ED to CT to floor with MD cerna. Pt alert and oriented with clear speech unlike when pt initially came to ED he appeared garbled and confused. All stickers including zoll pads removed. Has bilateral IVs in-right upper extremity and right wrist. site monitor on floor tachy at 128. 2L sats 96%. Pt given 2.5mg metoprolol with HR decrease to 80s. B/P 102/65. All cares explained permission to throw away clothes that were cut off by EMS.
--- NOTE | 2022-09-26 00:31 | PM.IMHP1 ---
Hospitalist- H&P: HPI History of Present Illness Time Seen by Provider: 23:00 Date Seen: 09/25/22 Chief complaint: heart attack Narrative: Sulaiman Trujillo is a 72 year old male with obesity, heart failure, medical noncompliance, diabetes mellitus brought to the emergency room because it of acute on chronic weakness. Patient reports that yesterday he was mowing the lawn on his riding lawnmower and he felt quite weak after this. He was walking down his stairs and fell backwards landing on his buttock due to weakness. Today he was in his reclining lift chair and was unable to get out of the chair. He called his son and ex-. They were unable to help him and so they called 911. Blood sugar was elevated at that time. He also fell 2 weeks ago and was seen in our emergency department for rib injuries. No rib fracture was seen. He was discharged to home. He lives alone in his own home. He walks with a cane normally. Currently not able to walk due to leg weakness. He is not aware of having a fever, cough, chest pain, shortness of breath, nausea, vomiting, abdominal pain, diarrhea, blood in his stool or new urinary problems. Three months ago he had TURP which helped his urination. February 2022 he was hospitalized with hyponatremia confusion and weakness. He was referred to a halfway facility for rehab but he declined and went home. He manages independently in the home fairly well according to himself. His ex indicates that he does struggle at times to maintain his independence and needs helps with some ADLs. Review of Systems Narrative: Other than his weakness he reports having no other symptoms or concerns today [facility] Medical History (Updated 09/26/22 @ 00:52 by Rigoberto Nina MD) Acute right-sided weakness ?R53.1 - Weakness (ICD-10) Medical non-compliance ?Z91.199 - Patient's noncompliance with other medical treatment and regimen due to unspecified reason (ICD-10) Unintentional weight loss ?R63.4 - Abnormal weight loss (ICD-10) Atrial arrhythmia ?I49.8 - Other specified cardiac arrhythmias (ICD-10) Abnormal CT of brain ?R90.89 - Other abnormal findings on diagnostic imaging of central nervous system (ICD-10) Episode of gagging ?R19.8 - Other specified symptoms and signs involving the digestive system and abdomen (ICD-10) Seborrhea of face ?L21.9 - Seborrheic dermatitis, unspecified (ICD-10) Nausea ?R11.0 - Nausea (ICD-10) Microcytic anemia ?D50.9 - Iron deficiency anemia, unspecified (ICD-10) Steroid-induced hyperglycemia ?R73.9 - Hyperglycemia, unspecified (ICD-10) ?T38.0X5A - Adverse effect of glucocorticoids and synthetic analogues, initial encounter (ICD-10) Pituitary adenoma with extrasellar extension ?D35.2 - Benign neoplasm of pituitary gland (ICD-10) Benign non-nodular prostatic hyperplasia with lower urinary tract symptoms ?N40.1 - Benign prostatic hyperplasia with lower urinary tract symptoms (ICD-10) ASHD (arteriosclerotic heart disease) ?I25.10 - Atherosclerotic heart disease of [place] coronary artery without angina pectoris (ICD-10) Kidney stones ?N20.0 - Calculus of kidney (ICD-10) Aortic stenosis ?I35.0 - Nonrheumatic aortic (valve) stenosis (ICD-10) MRSA bacteremia ?R78.81 - Bacteremia (ICD-10) ?B95.62 - Methicillin resistant Staphylococcus aureus infection as the cause of diseases classified elsewhere (ICD-10) Postoperative hypotension ?I95.81 - Postprocedural hypotension (ICD-10) Morbid obesity ?E66.01 - Morbid (severe) obesity due to excess calories (ICD-10) Hyperlipidemia ?E78.5 - Hyperlipidemia, unspecified (ICD-10) Abnormal colonoscopy ?R93.3 - Abnormal findings on diagnostic imaging of other parts of digestive tract (ICD-10) Hx of colonic polyps ?Z86.010 - Personal history of colonic polyps (ICD-10) Sleep apnea ?G47.30 - Sleep apnea, unspecified (ICD-10) Malignant melanoma of right upper extremity ?C43.61 - Malignant melanoma of right upper limb, including shoulder (ICD-10) Hypertension ?I10 - Essential (primary) hypertension (ICD-10) Diabetes mellitus type 2 in obese ?E11.69 - Type 2 diabetes mellitus with other specified complication (ICD-10) ?E66.9 - Obesity, unspecified (ICD-10) Surgical History (Updated 09/26/22 @ 00:26 by Rigoberto Nina MD) History of transurethral resection of prostate ?Z98.890 - Other specified postprocedural states (ICD-10) ?Z90.79 - Acquired absence of other genital organ(s) (ICD-10) 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) H/O vasectomy ?Z98.52 - Vasectomy status (ICD-10) S/P skin biopsy ?Z98.890 - Other specified postprocedural states (ICD-10) H/O nephrostomy H/O lithotripsy ?Z98.890 - Other specified postprocedural states (ICD-10) S/P laparoscopic sleeve gastrectomy ?Z98.84 - Bariatric surgery status (ICD-10) History of total right hip arthroplasty ?Z96.641 - Presence of right artificial hip joint (ICD-10) H/O umbilical hernia repair ?Z98.890 - Other specified postprocedural states (ICD-10) ?Z87.19 - Personal history of other diseases of the digestive system (ICD-10) H/O hemorrhoidectomy ?Z98.890 - Other specified postprocedural states (ICD-10) Hx of colonoscopy ?Z98.890 - Other specified postprocedural states (ICD-10) H/O right hemicolectomy ?Z90.49 - Acquired absence of other specified parts of digestive tract (ICD-10) Hx of appendectomy ?Z90.49 - Acquired absence of other specified parts of digestive tract (ICD-10) Family History (Updated 01/29/22 @ 14:51 by Gina Carreon MD) Father Colon cancer Obesity Sister Diabetes Obesity Mother Heart disease High blood pressure Hyperlipidemia Obesity Stroke Social History (Updated 09/26/22 @ 00:46 by Rigoberto Nina MD) Narrative: [place] Requests that we talk with his ex- about current health issues. Son is also actively involved in assisting his care. Wishes to be full code. He does not smoke. Highest level of school completed/degree received: Associate degree: occupational, technical, vocational program Smoking Status: Former smoker What tobacco products do you use: cigarettes Years smoked: 30 Smoking quit date/years: >15 years ago Do you use any of these nicotine containing products: None Second hand tobacco smoke exposure: No How often do you have a drink containing alcohol: 2-4 times a month Alcohol type: beer How many standard drinks containing alcohol do you have on a typical day: 1 or 2 How often do you have six or more drinks on one occasion: Less than monthly AUDIT-C Alcohol total score: 3 Non-prescribed substance use: denies use Caffeine: Yes (3-4 daily) service: No Meds Home Medications and Allergies Home Medications Medication Instructions Recorded Confirmed Type atorvastatin 40 mg tablet 40 mg PO DAILY 01/10/22 01/29/22 History citalopram 10 mg tablet 10 mg PO DAILY 01/10/22 01/29/22 History metformin 1,000 mg tablet 1,000 mg PO BID 01/10/22 01/29/22 History metoprolol succinate 50 mg 50 mg PO DAILY 01/10/22 01/29/22 History tablet,extended release 24 hr tamsulosin 0.4 mg capsule 0.4 mg PO DAILY 01/10/22 01/29/22 History apixaban 5 mg tablet (Eliquis) 5 mg PO BID 01/23/22 01/29/22 History cholecalciferol (vitamin D3) 25 1,000 unit PO DAILY 01/23/22 01/29/22 History mcg (1,000 unit) tablet guaifenesin 600 mg tablet, 600 mg PO BID PRN 01/23/22 01/29/22 History extended release 12 hr (Mucinex) magnesium oxide 400 mg (241.3 mg 400 mg PO DAILY 01/23/22 01/29/22 History magnesium) tablet pantoprazole 40 mg tablet,delayed 40 mg PO DAILY 01/23/22 01/29/22 History release ascorbic acid (vitamin C) 500 mg 500 mg PO DAILY 01/29/22 01/29/22 History chewable tablet (Acerola C) acetaminophen 500 mg tablet 1,000 mg PO Q6H PRN 01/30/22 01/30/22 History omega 8-qxq-uim-fish oil 100 1 cap PO DAILY 01/30/22 01/30/22 History mg-160 mg-1,000 mg capsule (Fish Oil) Allergies Allergy/AdvReac Type Severity Reaction Status Date / Time No Known Drug Allergies Allergy Verified 09/26/22 00:06 Exam Narrative: Exam Narrative: He is alert and appears in no distress. Head is without obvious trauma. Eyes are normal. Extraocular movements are full. Visual yao are intact. Pupils are equal round reactive to light. There is no facial asymmetry. Oropharynx with small airway. No mucosal abnormalities. Neck is supple without mass or adenopathy. No stridor. No tenderness. Respirations are clear to auscultation. No wheezing rales or rhonchi. Cardiovascular: S1, S2, regular tachycardia. Distant heart sounds. No murmur gallop or rub. Abdomen: Bowel sounds active. Abdomen is soft with no tenderness or mass. External genitalia normal. Upper extremities are normal with intact pulses and sensation. He is somewhat weaker with finger extension on the right hand compared to the left. [id number] is slightly slower on the right than the left. Lower extremity examination shows that he is 4/5 strength in great toe and ankle dorsiflexion on the right and 5/5 on the left. Right foot plantar flexion is mildly weak compared to the left. Hip flexion, knee flexion and extension 4/5 on the right compared to the left 5/5. He reports absent sensation to soft touch on his right foot compared to his left. Const: Vital Signs, click to edit/add: Vital Signs - 24 hr 09/25/22 21:46 09/25/22 21:49 09/25/22 21:51 Temperature Pulse Rate 139 H 139 H 140 H Pulse Rate [Pulse Oximeter] Respiratory Rate Blood Pressure 91/55 L 96/43 L Blood Pressure [Le ft Upper Arm] Pulse Oximetry 94 93 92 Oxygen Delivery Me thod Oxygen Flow Rate 09/25/22 21:56 09/25/22 21:58 09/25/22 21:59 Temperature 98.1 F Pulse Rate 135 H 139 H Pulse Rate [Pulse Oximeter] 98 Respiratory Rate 18 Blood Pressure 100/62 111/65 Blood Pressure [Le ft Upper Arm] 117/59 L Pulse Oximetry 95 96 94 Oxygen Delivery Me thod Nasal Cannula Oxygen Flow Rate 2 09/25/22 22:00 09/25/22 22:01 09/25/22 22:02 Temperature Pulse Rate 135 H 135 H 135 H Pulse Rate [Pulse Oximeter] Respiratory Rate Blood Pressure 107/65 Blood Pressure [Le ft Upper Arm] Pulse Oximetry 97 97 97 Oxygen Delivery Me thod Oxygen Flow Rate 09/25/22 22:06 09/25/22 22:15 09/25/22 22:22 Temperature Pulse Rate 133 H 130 H 134 H Pulse Rate [Pulse Oximeter] Respiratory Rate Blood Pressure 118/76 91/54 L Blood Pressure [Le ft Upper Arm] Pulse Oximetry 96 99 98 Oxygen Delivery Me thod Oxygen Flow Rate 09/25/22 22:30 09/25/22 22:31 09/25/22 22:45 Temperature Pulse Rate 130 H 130 H 130 H Pulse Rate [Pulse Oximeter] Respiratory Rate Blood Pressure 97/58 L Blood Pressure [Le ft Upper Arm] Pulse Oximetry 98 98 97 Oxygen Delivery Me thod Oxygen Flow Rate 09/25/22 22:46 09/25/22 23:00 09/25/22 23:01 Temperature Pulse Rate 132 H 129 H 129 H Pulse Rate [Pulse Oximeter] Respiratory Rate Blood Pressure 107/59 L 108/59 L Blood Pressure [Le ft Upper Arm] Pulse Oximetry 97 96 96 Oxygen Delivery Me thod Oxygen Flow Rate 09/25/22 23:15 09/25/22 23:17 09/25/22 23:30 Temperature Pulse Rate 126 H 127 H 125 H Pulse Rate [Pulse Oximeter] Respiratory Rate Blood Pressure 105/57 L Blood Pressure [Le ft Upper Arm] Pulse Oximetry 97 97 97 Oxygen Delivery Me thod Oxygen Flow Rate 09/25/22 23:31 Temperature Pulse Rate 126 H Pulse Rate [Pulse Oximeter] Respiratory Rate Blood Pressure 99/53 L Blood Pressure [Le ft Upper Arm] Pulse Oximetry 98 Oxygen Delivery Me thod Oxygen Flow Rate Documenting provider has reviewed patient's vital signs: yes Hospitalist - H&P: Result Labs Labs: Short CBC 09/25/22 Range/Units 21:40 WBC 8.74 (4.50-11.00) K/uL Hgb 10.4 L (13.5-17.5) gm/dL Hct 31.7 L (37.0-53.0) % Plt Count 174 (140-440) K/uL BMP 09/25/22 21:40 Sodium 135 Potassium 3.3 L Chloride 100 Carbon Dioxide 24 BUN 15 Creatinine 0.6 Glucose 178 H Calcium 8.9 Liver Function 09/25/22 Range/Units 22:16 Total Bilirubin 0.5 (0.1-1.5) mg/dL Direct Bilirubin 0.2 (0.0-0.5) mg/dL AST 23 (12-35) U/L ALT 18 (4-50) U/L Alkaline Phosphatase 97 (40-150) U/L Albumin 3.5 (3.3-5.0) g/dL Assessment and Plan Assessment and plan (1) Acute right-sided weakness: Problem comment: Patient has prominent weakness of his right lower extremity and to a lesser extent his right upper extremity which appears to be new in the last day. Imaging of the brain for stroke pending Status: Acute (2) Weakness: Problem comment: Chronic deconditioning and weakness now acutely worse in the last day possibly due to stroke Status: Acute (3) Hypomagnesemia: Problem comment: Patient not taking oral magnesium at home as prescribed. Replace with IV and resume oral magnesium. Status: Acute (4) Sinus tachycardia: Problem comment: Patient has a regular tachycardia with his right bundle branch block. Likely sinus tachycardia. Evaluate for underlying cause of tachycardia. Evaluate for source of infection especially in the context of an elevated lactate. Continue routine metoprolol. Correct electrolytes. Status: Acute (5) Morbid obesity: Problem comment: BMI 44 Status: Acute (6) Unintentional weight loss: Problem comment: Patient reports 50 lb weight loss in the past year. Medical record shows 6 kg weight loss in the last 4 months. Unintentional. Status: Acute (7) Medical non-compliance: Problem comment: Patient reports that he is not taking his diuretic daily. He is not taking his magnesium at all. His ex- is concerned that he does not reliably take any of his medications. She tried to help him by setting up a pillbox but he was not using it regularly. Status: Acute (8) Polyp of duodenum: Problem comment: Found to have a polyp in his duodenum. Referred to [place] [facility] for endoscopic removal. Procedures been canceled a couple times because of other medical issues. Status: Acute (9) Hypertension: Problem comment: Pending stroke evaluation permissive hypertension Status: Acute Plan Patient is admitted to the hospital for evaluation of acute on chronic weakness suspected to be due to a stroke affecting his right side. Also investigation of the cause for his sinus tachycardia and possible infection or cardiovascular problem. Total time spent today is 100 minutes, 60 minutes in coordination of care and discussing with patient, family and other providers ongoing evaluation management of weakness, stroke, medical noncompliance
[2022-09-26 00:52] LABS: Troponin, Point-of-Care* 0.06 ng/ml (0.01-0.04)
[2022-09-26 00:54] LABS: Appearance Urine Slightly Cloudy (Clear); Bilirubin Urine Negative (Negative); Blood Urine 1+ (Negative); Color Urine Yellow (Yellow); Glucose Urine Negative (Negative); Ketones Urine Negative (Negative); Leukocyte Esterase Urine Negative (Negative); Nitrite Urine Negative (Negative); Protein Urine 3+ (Negative); Urobilinogen Urine 0.2 (0.2-1.0); pH Urine 5.5 (5.0-8.5)
[2022-09-26 01:04] LABS: Amorphous Sediment Urine Few; Bacteria Urine Few; Squamous Epithelial Cell Urine Few (None-Few)
[2022-09-26] MEDS: ASPIRIN 81 MG TAB.CHEW 324 MG PO (01:07)
[2022-09-26] MEDS: METOPROLOL TARTRATE 25 MG TABLET PO (01:19)
[2022-09-26] MEDS: CLOPIDOGREL 300 MG TABLET PO (01:19)
[2022-09-26] MEDS: ACETAMINOPHEN 500 MG TABLET 1000 MG PO ×2 (02:21→15:27)
[2022-09-26 07:25] LABS: Lactate* 0.6 mmol/L (0.5-1.9)
[2022-09-26 07:27] LABS: Basophils Absolute Auto 0.02 K/uL (0.00-0.30); Basophils Percent Auto 0.2 % (0.0-3.0); Eosinophils Absolute Auto 0.01 K/uL (0.00-0.50); Eosinophils Percent Auto 0.1 % (0.0-7.0); Hematocrit 29.4 % (37.0-53.0); Hemoglobin* 9.5 gm/dL (13.5-17.5); Immature Granulocytes Abs Auto 0.02 K/uL (0.00-0.30); Immature Granulocytes Pct Auto 0.2 %; Lymphocytes Percent Auto 8.9 % (20-44); Mean Corpuscular HGB Conc 32 gm/dL (32-36); Mean Corpuscular Hemoglobin 27 pg (26-34); Mean Corpuscular Volume 84 fL (80-100); Monocytes Percent Auto 5.8 % (0.0-11.0); Neutrophils Percent Auto 84.8 % (42.0-72.0); Platelet Count* 171 K/uL (140-440); RDW Coefficient of Variation % 15.6 % (11.5-15.5); White Blood Count* 8.09 K/uL (4.50-11.00)
[2022-09-26 07:32] LABS: Slide Review Reflex No
[2022-09-26 07:43] LABS: Chloride* 101 mmol/L (96-114); Sodium* 135 mmol/L (135-149)
[2022-09-26 07:46] LABS: Creatinine* 0.6 mg/dL (0.5-1.5); Est. Creatinine Clearance* 68.94; Estimated Glomerular Filt Rate 103 ml/min
[2022-09-26 07:47] LABS: Blood Urea Nitrogen* 16 mg/dL (7-30); Calcium* 8.6 mg/dL (8.4-10.6); Carbon Dioxide* 28 mmol/L (20-32); Glucose* 118 mg/dL (60-115)
[2022-09-26 07:48] LABS: Magnesium* 1.9 mg/dL (1.5-2.6)
[2022-09-26 07:49] LABS: Potassium* 2.8 mmol/L (3.6-5.1)
[2022-09-26 07:50] LABS: C Reactive Protein* 4.3 mg/dL (0.5-1.0)
[2022-09-26 08:00] LABS: Troponin I* 0.23 ng/mL (0.01-0.04)
[2022-09-26] MEDS: POTASSIUM BICARB 25 MEQ EFFERVESCENT TAB PO ×3 (08:56→13:53)
[2022-09-26] MEDS: OMEPRAZOLE 20 MG CAPSULE DR 40 MG PO (08:56)
[2022-09-26] MEDS: TAMSULOSIN HCL 0.4 MG CAPSULE PO (08:56)
[2022-09-26] MEDS: POTASSIUM CHLORIDE 10 MEQ CAPSULE ER 20 MEQ PO (08:57)
[2022-09-26] MEDS: CLOPIDOGREL 75 MG TABLET PO (08:57)
[2022-09-26] MEDS: CITALOPRAM HYDROBROMIDE 20 MG TABLET 10 MG PO (08:57)
[2022-09-26] MEDS: TORSEMIDE 5 MG TABLET PO (08:57)
[2022-09-26] MEDS: METOPROLOL SUCCINATE (XL) 50 MG TAB PO (08:57)
[2022-09-26] MEDS: ASCORBIC ACID 500 MG TABLET PO (08:57)
[2022-09-26] MEDS: MAGNESIUM OXIDE 400 MG TABLET PO ×2 (08:58→21:07)
[2022-09-26] MEDS: ASPIRIN 81 MG TAB.CHEW PO (08:58)
[2022-09-26] MEDS: SODIUM CHLORIDE 0.9 % (FLUSH) 10 ML SYRINGE 5 ML IVF ×2 (09:04→21:07)
--- NOTE | 2022-09-26 12:30 | REH.PT ---
PT/OT eval held today per MD as troponins are elevated.
--- NOTE | 2022-09-26 14:23 | PC.NURSE ---
End of Shift: Patient pleasant and cooperative. Patient vitally stable, lungs clear, BS WNL, IV intact. Patient 1 assist, walker, gb. Patient denies pain. Patient is urinating uses urinal, uses toilet for BM. Patient has had 2 loose stools. Patient with unstable gait. Patient tele=NS with first degree HB.
--- NOTE | 2022-09-26 16:22 | PM.IMPN1 ---
Progress Note: A&P Assessment and plan (1) Acute right-sided weakness: Problem details: - Patient had prominent weakness of his right lower extremity and to a lesser extent his right upper extremity which appears to be new in the last day. - focal symptoms have completely resolved - Status: Resolved (2) Elevated troponin I level: Problem details: Asymptomatic, no EKG changes. Peak 0.23. Suspect demand ischemia. ECHO obtained today. I reviewed his echo from January 2022. HOCM mentioned in 2021 was not mentioned on this echocardiogram. Aortic stenosis was mild to moderate in 2021 and is now moderate. Patient got ASA for concern of stroke. Keep on daily baby aspirin until discharge, but he will not be able to take it terminologist because of his h/o gastric bypass. Status: Acute (3) Hypertension: Problem details: Pending stroke evaluation permissive hypertension Status: Acute (4) Medical non-compliance: Problem details: Patient reports that he is not taking his diuretic daily. He is not taking his magnesium at all. His ex- is concerned that he does not reliably take any of his medications. She tried to help him by setting up a pillbox but he was not using it regularly. Status: Acute (5) Sinus tachycardia: Problem details: Patient has a regular tachycardia with his right bundle branch block. Likely sinus tachycardia. Evaluate for underlying cause of tachycardia. Evaluate for source of infection especially in the context of an elevated lactate. Continue routine metoprolol. Correct electrolytes. - 09/26/2022 tachycardia has resolved. Status: Resolved (6) Morbid obesity: Problem details: BMI 44 Status: Acute (7) Unintentional weight loss: Problem details: Patient reports 50 lb weight loss in the past year. Medical record shows 6 kg weight loss in the last 4 months. Unintentional. Status: Acute (8) Heart failure with preserved ejection fraction: Problem details: See echo report above. Patient was previously on hydrochlorothiazide 50 mg daily. He was started torsemide 10 mg daily in anticipation of problems with volume control and edema off his hydrochlorothiazide. May also help manage his sodium. Status: Acute (9) Hypomagnesemia: Problem details: Patient not taking oral magnesium at home as prescribed. Replace with IV and resume oral magnesium. - Discussed importance of medication compliance with patient. Status: Acute (10) Aortic stenosis: Problem details: Now moderate on ECHO, as results above Status: Acute (11) Weakness: Problem details: Chronic deconditioning and weakness now acutely worse - PT and OT evaluation in am (held today due to elevated troponin. Status: Acute Plan Diarrhea - check Cdiff. Subjective Time Seen by Provider: 08:25 Date Seen: 09/26/22 Interval history: Denies CP or SOB. Weakness has resolved, but nurses report he has unsteady gait. He denies CP or SOB. 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 I saw him again later today to give him results and his son and ex- were in the room. We discussed possibly going home, but due to diarrhea and unsteadiness, he will stay tonight. Exam Narrative: Exam Narrative: General: No acute distress. Awake, alert, oriented x3. No pallor. No diaphoresis. Cardiovascular: Regular rate and rhythm. No murmurs, gallops, or rubs. Respiratory: Clear to auscultation bilaterally. No wheezes or crackles. Abdomen: Morbidly obese. Bowel sounds hyperactive, occasional borborygmi. Soft, nondistended, nontender. Neuro: There are no focal deficits. Romberg is negative. Gait is within normal limits. Cranial nerves 2-12 are intact. Extraocular movements are full. No nystagmus. No facial asymmetry. Tongue is midline. Peripheral vision and vision are grossly intact. Strength is 5/5 in all 4 extremities. DTRs intact and symmetric. Light touch sensation is intact in face body and extremities. Coordination is intact in upper and lower extremities. Const: Vital Signs, click to edit/add: Vital Signs - 24 hr 09/25/22 21:46 09/25/22 21:49 09/25/22 21:51 Temperature Pulse Rate 139 H 139 H 140 H Pulse Rate [Left R adial] Pulse Rate [Pulse Oximeter] Respiratory Rate Blood Pressure 91/55 L 96/43 L Blood Pressure [Le ft Arm] Blood Pressure [Le ft Upper Arm] Pulse Oximetry 94 93 92 Oxygen Delivery Me thod Oxygen Flow Rate 09/25/22 21:56 09/25/22 21:58 09/25/22 21:59 Temperature 98.1 F Pulse Rate 135 H 139 H Pulse Rate [Left R adial] Pulse Rate [Pulse Oximeter] 98 Respiratory Rate 18 Blood Pressure 100/62 111/65 Blood Pressure [Le ft Arm] Blood Pressure [Le ft Upper Arm] 117/59 L Pulse Oximetry 95 96 94 Oxygen Delivery Me thod Nasal Cannula Oxygen Flow Rate 2 09/25/22 22:00 09/25/22 22:01 09/25/22 22:02 Temperature Pulse Rate 135 H 135 H 135 H Pulse Rate [Left R adial] Pulse Rate [Pulse Oximeter] Respiratory Rate Blood Pressure 107/65 Blood Pressure [Le ft Arm] Blood Pressure [Le ft Upper Arm] Pulse Oximetry 97 97 97 Oxygen Delivery Me thod Oxygen Flow Rate 09/25/22 22:06 09/25/22 22:15 09/25/22 22:22 Temperature Pulse Rate 133 H 130 H 134 H Pulse Rate [Left R adial] Pulse Rate [Pulse Oximeter] Respiratory Rate Blood Pressure 118/76 91/54 L Blood Pressure [Le ft Arm] Blood Pressure [Le ft Upper Arm] Pulse Oximetry 96 99 98 Oxygen Delivery Me thod Oxygen Flow Rate 09/25/22 22:30 09/25/22 22:31 09/25/22 22:45 Temperature Pulse Rate 130 H 130 H 130 H Pulse Rate [Left R adial] Pulse Rate [Pulse Oximeter] Respiratory Rate Blood Pressure 97/58 L Blood Pressure [Le ft Arm] Blood Pressure [Le ft Upper Arm] Pulse Oximetry 98 98 97 Oxygen Delivery Me thod Oxygen Flow Rate 09/25/22 22:46 09/25/22 23:00 09/25/22 23:01 Temperature Pulse Rate 132 H 129 H 129 H Pulse Rate [Left R adial] Pulse Rate [Pulse Oximeter] Respiratory Rate Blood Pressure 107/59 L 108/59 L Blood Pressure [Le ft Arm] Blood Pressure [Le ft Upper Arm] Pulse Oximetry 97 96 96 Oxygen Delivery Me thod Oxygen Flow Rate 09/25/22 23:15 09/25/22 23:17 09/25/22 23:30 Temperature Pulse Rate 126 H 127 H 125 H Pulse Rate [Left R adial] Pulse Rate [Pulse Oximeter] Respiratory Rate Blood Pressure 105/57 L Blood Pressure [Le ft Arm] Blood Pressure [Le ft Upper Arm] Pulse Oximetry 97 97 97 Oxygen Delivery Me thod Oxygen Flow Rate 09/25/22 23:31 09/26/22 00:32 09/26/22 00:32 Temperature 99 F Pulse Rate 126 H Pulse Rate [Left R adial] 121 H Pulse Rate [Pulse Oximeter] Respiratory Rate 18 18 Blood Pressure 99/53 L Blood Pressure [Le ft Arm] 108/62 Blood Pressure [Le ft Upper Arm] Pulse Oximetry 98 96 96 Oxygen Delivery Me thod Nasal Cannula Nasal Cannula Oxygen Flow Rate 2 2 09/26/22 02:21 09/26/22 02:27 09/26/22 07:00 Temperature 99.6 F 99.6 F 99.5 F Pulse Rate Pulse Rate [Left R adial] 79 67 Pulse Rate [Pulse Oximeter] Respiratory Rate 20 28 H Blood Pressure Blood Pressure [Le ft Arm] 116/67 118/65 Blood Pressure [Le ft Upper Arm] Pulse Oximetry 96 93 Oxygen Delivery Me thod Nasal Cannula Room Air Oxygen Flow Rate 2 09/26/22 07:00 09/26/22 07:00 09/26/22 11:00 Temperature 99.5 F Pulse Rate 69 Pulse Rate [Left R adial] 67 65 Pulse Rate [Pulse Oximeter] Respiratory Rate 28 H 28 H Blood Pressure Blood Pressure [Le ft Arm] 109/57 L Blood Pressure [Le ft Upper Arm] Pulse Oximetry 92 Oxygen Delivery Me thod Room Air Oxygen Flow Rate Labs Labs: Laboratory Results - last 24 hr 09/25/22 09/25/22 09/25/22 21:40 21:41 22:16 WBC 8.74 RBC 3.80 L Hgb 10.4 L Hct 31.7 L MCV 83 MCH 27 MCHC 33 RDW Coeff of Daniel 15.0 Plt Count 174 Neut % (Auto) 83.6 H Lymph % (Auto) 7.8 L [place] % (Auto) 7.3 Eos % (Auto) 0.9 Baso % (Auto) 0.2 Neut # (Auto) 7.30 H Lymph # (Auto) 0.70 L [place] # (Auto) 0.60 Eos # (Auto) 0.08 Baso # (Auto) 0.02 INR 1.13 H Sodium 135 Potassium 3.3 L Chloride 100 Carbon Dioxide 24 BUN 15 Creatinine 0.6 Estimated Creat Clear 73.29 Estimated GFR 103 Glucose 178 H Lactate 2.9 H Calcium 8.9 Magnesium 1.0 L Total Bilirubin 0.5 Direct Bilirubin 0.2 AST 23 ALT 18 Alkaline Phosphatase 97 Troponin I C-Reactive Protein NT-Pro-B Natriuret Pep 2690 Total Protein 6.1 Albumin 3.5 Urine Color Urine Appearance Urine pH Ur Specific [place] Urine Protein Urine Glucose (UA) Urine Ketones Urine Blood Urine Nitrite Urine Bilirubin Urine Urobilinogen Ur Leukocyte Esterase Urine RBC Urine WBC Ur Squamous Epith Cells Amorphous Sediment Urine Bacteria Lab Acknowledgement POC Troponin I 0.02 09/25/22 09/25/22 09/26/22 22:26 23:30 00:30 WBC RBC Hgb Hct MCV MCH MCHC RDW Coeff of Daniel Plt Count Neut % (Auto) Lymph % (Auto) [place] % (Auto) Eos % (Auto) Baso % (Auto) Neut # (Auto) Lymph # (Auto) [place] # (Auto) Eos # (Auto) Baso # (Auto) INR Sodium Potassium Chloride Carbon Dioxide BUN Creatinine Estimated Creat Clear Estimated GFR Glucose Lactate Calcium Magnesium Total Bilirubin Direct Bilirubin AST ALT Alkaline Phosphatase Troponin I C-Reactive Protein NT-Pro-B Natriuret Pep Total Protein Albumin Urine Color Yellow Urine Appearance Slightly Cloudy A Urine pH 5.5 Ur Specific [place] 1.020 Urine Protein 3+ A Urine Glucose (UA) Negative Urine Ketones Negative Urine Blood 1+ A Urine Nitrite Negative Urine Bilirubin Negative Urine Urobilinogen 0.2 Ur Leukocyte Esterase Negative Urine RBC 2-5 A Urine WBC 5-10 A Ur Squamous Epith Cells Few Amorphous Sediment Few A Urine Bacteria Few A Lab Acknowledgement Test Added POC Troponin I 0.06 H 09/26/22 09/26/22 07:20 11:17 WBC 8.09 RBC 3.50 L Hgb 9.5 L Hct 29.4 L MCV 84 MCH 27 MCHC 32 RDW Coeff of Daniel 15.6 H Plt Count 171 Neut % (Auto) 84.8 H Lymph % (Auto) 8.9 L [place] % (Auto) 5.8 Eos % (Auto) 0.1 Baso % (Auto) 0.2 Neut # (Auto) 6.90 Lymph # (Auto) 0.70 L [place] # (Auto) 0.50 Eos # (Auto) 0.01 Baso # (Auto) 0.02 INR Sodium 135 Potassium 2.8 L* Chloride 101 Carbon Dioxide 28 BUN 16 Creatinine 0.6 Estimated Creat Clear 68.94 Estimated GFR 103 Glucose 118 H Lactate 0.6 Calcium 8.6 Magnesium 1.9 Total Bilirubin Direct Bilirubin AST ALT Alkaline Phosphatase Troponin I 0.23 H* 0.20 H* C-Reactive Protein 4.3 H NT-Pro-B Natriuret Pep Total Protein Albumin Urine Color Urine Appearance Urine pH Ur Specific [place] Urine Protein Urine Glucose (UA) Urine Ketones Urine Blood Urine Nitrite Urine Bilirubin Urine Urobilinogen Ur Leukocyte Esterase Urine RBC Urine WBC Ur Squamous Epith Cells Amorphous Sediment Urine Bacteria Lab Acknowledgement POC Troponin I 09/26/2022 7:46 a.m. EKG: Sinus rhythm with first-degree AV block, right bundle-branch block, unchanged from EKG done 01/30/2022. 09/26/2022 Echocardiogram: Normal left ventricular size, moderately increased wall thickness, normal global systolic function, calculated EF of 65%. Right ventricular cavity size is normal, global systolic RV function is normal. Normal left atrium size. Aortic valve is calcified, moderate stenosis and mild regurgitation. Aortic valve peak velocity is 3.6 m/sec, the peak gradient is 51 m mercury, and the mean gradient is 31 mm Hg. The aortic valve area is 1.27 centimeter squared with dimensionless index of 0.29. The stroke volume index is 50.2 mL per meter squared. The mitral valve is moderate mitral annular calcification (posterior), mild mitral regurgitation. The peak and mean transmitral gradients are 10.7 and 5 mm mercury respectively (HR 66bpm). By CE, the MVA equals 2.02 centimeters squared; consistent with mild mitral stenosis. Tricuspid valve is normal. Mildly increased estimated pulmonary pressures by tricuspid regurgitation velocity and right atrial pressure (27 mm Hg plus RAP). No pericardial effusion. Ordering Physician: Rigoberto Nina M.D. Date of Service: 09/26/22 Procedure(s): MR head/brain wo con Accession Number(s): [id number] cc: Rigoberto Nina M.D.; Jose Linares M.D.~ For Patients: As a result of the 21st Century Cures Act, medical imaging exams and procedure reports are released immediately into your electronic medical record. You may view this report before your referring provider. If you have questions, please contact your health care provider. INDICATION: Right-sided weakness. History of pituitary adenoma. TECHNIQUE: Brain MRI without contrast. The following sequences were obtained: Sagittal T1 weighted sequence. DWI and ADC mapping sequences. Axial FLAIR and DANNY T2 weighted sequences. Susceptibility or GRE sequence. COMPARISON: Brain MRI from 09/07/2021. FINDINGS: Again demonstrated is the T2 heterogenously hyperintense mass within the left sella, cavernous sinus and left suprasellar/supraclinoid region. It is difficult to differentiate from normal pituitary tissue which is present to the right of midline with accompanying rightward infundibular deviation. Accounting for this, it measures approximately 33 millimeters in AP dimension, 24 millimeters in TR dimension, and 33 millimeters in CC dimension. There is 360 degrees encasement of the left cavernous internal carotid artery, without attenuation of the flow void. Nodule of tumor superior to the anterior clinoid process measures 15 x 19 millimeters in axial plane. It mildly deforms adjacent brain parenchyma and partially encases/inferior medially displaces the left-sided optic chiasm. It also partially encases the supraclinoid ICA and left MCA origin. The lesion is not significantly changed in size/appearance compared to the prior exam. No evidence of acute ischemia. No evidence of acute or chronic intracranial blood products. A few small FLAIR hyperintensities within the supratentorial white matter and brainstem, typical for chronic microvascular ischemic change. No hydrocephalus or extra-axial collections. Posterior fossa is normal. All the major intracranial vascular structures demonstrate normal flow-related signal. The orbital contents are normal. No obstructive sinus disease. Left-sided mastoid effusion. No extracranial soft tissue findings. IMPRESSION: 1. No acute ischemia or other acute intracranial pathology. 2. Stable appearance of the mass within the left sella/cavernous sinus/suprasellar/supraclinoid region, compatible with pituitary adenoma. Left ICA flow void remains patent. 3. Very minor chronic microvascular ischemic changes. Dictated by Angel Marr MD @ 09/26/2022 1:11:42 PM (Electronically Signed)
[2022-09-26] MEDS: ATORVASTATIN CALCIUM 40 MG TABLET PO (21:07)
[2022-09-26] MEDS: ENOXAPARIN 40 MG/0.4 ML INJ SUBCUT (21:07)
--- NOTE | 2022-09-26 23:01 | PC.NURSE ---
Shift [id number]- Patient denies pain. He is up with assist of 1, walker and gait belt. Gait is uneven and slow, but steady. He appears fatigued after short walk and states he is. Appetite intact. Voids using urinal.
[2022-09-27 00:55] VITALS: BP 136/63; PULSE 60; RESP 20; TEMP 37; O2SAT 94
[2022-09-27 04:05] VITALS: BP 148/65; PULSE 63; RESP 18; TEMP 36.4; O2SAT 95
[2022-09-27 05:37] LABS: C.Difficile Negative (Negative); CDIFFEPI 027 PRESUMPTIVE NEGATIVE (Negative)
--- NOTE | 2022-09-27 06:15 | PC.NURSE ---
Pt alert and oriented x3. Afebrile. Pt denies pain, chest pain, SOB, and N/V. Pt had lose bowel movement, sample collected and sent to lab per orders.?Pt is up SBA with walker and gait belt. Pt is voiding and tolerating a regular diet. Pt slept throughout most of night. Night uneventful. ?
[2022-09-27 06:44] LABS: Basophils Percent Auto 0.7 % (0.0-3.0); Eosinophils Percent Auto 4.2 % (0.0-7.0); Hematocrit 27.9 % (37.0-53.0); Hemoglobin* 8.9 gm/dL (13.5-17.5); Lymphocytes Percent Auto 31.4 % (20-44); Mean Corpuscular HGB Conc 32 gm/dL (32-36); Mean Corpuscular Hemoglobin 27 pg (26-34); Mean Corpuscular Volume 85 fL (80-100); Monocytes Percent Auto 7.8 % (0.0-11.0); Neutrophils Percent Auto 55.9 % (42.0-72.0); Platelet Count* 156 K/uL (140-440); RDW Coefficient of Variation % 15.7 % (11.5-15.5); Red Blood Count 3.27 m/uL (4.30-5.90); White Blood Count* 4.24 K/uL (4.50-11.00)
[2022-09-27 06:49] LABS: Slide Review Reflex No
[2022-09-27 07:00] VITALS: BP 111/62; PULSE 56; PULSE 60; PULSE 63; RESP 12; TEMP 36.4; O2SAT 94
[2022-09-27 07:05] LABS: Chloride* 102 mmol/L (96-114); Potassium* 3.4 mmol/L (3.6-5.1); Sodium* 137 mmol/L (135-149)
[2022-09-27 07:08] LABS: Blood Urea Nitrogen* 20 mg/dL (7-30); Carbon Dioxide* 32 mmol/L (20-32); Creatinine* 0.7 mg/dL (0.5-1.5); Est. Creatinine Clearance* 68.94; Estimated Glomerular Filt Rate 98 ml/min; Glucose* 108 mg/dL (60-115)
[2022-09-27 07:09] LABS: Calcium* 8.7 mg/dL (8.4-10.6)
[2022-09-27 07:17] LABS: HCO3 VBG 32 mmol/L (21-28); PCO2 VBG 49 mmHG (40-50); PO2 VBG 28.3 mmHG (25-47); pH VBG 7.419 (7.32-7.43)
[2022-09-27] MEDS: POTASSIUM CHLORIDE 10 MEQ CAPSULE ER 20 MEQ PO (08:36)
[2022-09-27] MEDS: MAGNESIUM OXIDE 400 MG TABLET PO (08:36)
[2022-09-27] MEDS: TAMSULOSIN HCL 0.4 MG CAPSULE PO (08:36)
[2022-09-27] MEDS: OMEPRAZOLE 20 MG CAPSULE DR 40 MG PO (08:36)
[2022-09-27] MEDS: METOPROLOL SUCCINATE (XL) 50 MG TAB PO (08:36)
[2022-09-27] MEDS: SODIUM CHLORIDE 0.9 % (FLUSH) 10 ML SYRINGE 5 ML IVF (08:37)
[2022-09-27] MEDS: CLOPIDOGREL 75 MG TABLET PO (08:37)
[2022-09-27] MEDS: ASCORBIC ACID 500 MG TABLET PO (08:37)
[2022-09-27] MEDS: TORSEMIDE 5 MG TABLET PO (08:37)
[2022-09-27] MEDS: CITALOPRAM HYDROBROMIDE 20 MG TABLET 10 MG PO (08:37)
[2022-09-27] MEDS: ASPIRIN 81 MG TAB.CHEW PO (08:37)
[2022-09-27 09:52] VITALS: BMI 40.2
[2022-09-27 11:00] VITALS: BP 110/57; PULSE 67; RESP 22; TEMP 36.6; O2SAT 95
[2022-09-27] MEDS: LOPERAMIDE HCL 2 MG CAPSULE PO (11:17)
[2022-09-27 13:22] VITALS: BP 99/53; PULSE 56; RESP 22; TEMP 36.6
--- NOTE | 2022-09-27 13:58 | PC.NURSE ---
Discharge: Patient pleasant and cooperative. Patient vitally stable, lungs clear, BS WNL, IV's removed, catheters intact x2. Patient SBA assist with walker or cane. Patient denies pain. Patient urinating and had 2 loose stools, loperamide given. Patient tolerating regular diet. Patient tele=Scotty with 1 degree HB and BBB. Patient signed belongings sheet and discharge form. Patient had no further questions regarding discharge. Patient left the floor by wheelchair to home at 1356.
--- NOTE | 2022-09-27 14:23 | PC.SOCIAL ---
Met with pt. and his ex- to discuss discharge plans. Pt. lives in an apartment connected to his ex-'s home. The recommendation is for pt. to home outpatient PT and OT at discharge. Gave pt. information on [employer], but pt. and [place] state pt. always has his cell phone next to him and he called them this hospital stay when he was not feeling well. Pt. does not feel he will need any additional resources for home but is aware he can contact social director if he needs additional assistance such as home economics extension worker care.
--- NOTE | 2022-09-27 15:11 | P.DS_ITS ---
DS: Providers Provider Date Seen: 09/27/22 Date of admission: 09/25/22 23:57 Primary care physician: Jose Linares MD Admitting Clinician: Rigoberto Nina MD Consults: 09/26/22 00:04 Consult to Occupational Therapy [CONS] Routine Comment: Reason(s) for OT Consult:: Evaluate and Treat Any Restrictions?:: No Restrictions 09/26/22 00:05 Consult to Physical Therapy [CONS] Routine Comment: Reason(s) for PT Consult:: Evaluate and Treat Any Restrictions?:: No Restrictions Consult to [facility] Broacher [CONS] Routine Comment: Reason for Consult:: Discharge Planning Needs Attending Physician on discharge: Rigoberto Nina MD Date of Discharge: 09/27/22 DS: Diagnosis Discharge Diagnosis (1) NSTEMI (non-ST elevated myocardial infarction): Status: Acute Problem details: For troponin peaked and down trended. Cardiology outpatient is appropriate. Echo was essentially unchanged. (2) Heart failure with preserved ejection fraction: Status: Acute Problem details: Echo reviewed. Cardiac MRI reviewed from June 2022. Outpatient cardiology follow up has been arranged. Patient was previously on hydrochlorothiazide 50 mg daily. He was started torsemide 10 mg daily in anticipation of problems with volume control and edema off his hydrochlorothiazide. May also help manage his sodium. cardiac MRI in july 20 1. Hypertrophic cardiomyopathy with normal left ventricular systolic function, LVEF 63%. A. Borderline elongated anterior mitral leaflet of 2.7 cm. 1+ systolic anterior motion without resting LVOT obstruction. B. HILARY with a prominent increase in global myocardial mass and a maximal wall thickness of 2 cm. C. Mild increase in LV volumes and an increase in LVSVI of 37 ml/m2. 2. Normal right ventricular systolic function, RVEF 74%. A. Normal RV volumes and wall motion. 3. Small extent of replacement myocardial fibrosis. 4. Aortic valve is trileaflet with a stenotic and a nearly fused right and left coronary cusp. 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 5. Severe aortic regurgitation. A. Aortic regurgitant fraction 40% with a regurgitant volume 51 ml. B. Holo-diastolic retroaortic flow. 6. Severe left atrial enlargement. 7. Normal pericardium. 8. Normal aortic size. (3) Acute right-sided weakness: Status: Resolved Problem details: Focal right-sided weakness is resolved. aspirin and plavix started and continued at discharge. (4) Medical non-compliance: Status: Acute Problem details: Patient reports that he is not taking his diuretic daily. He is not taking his magnesium at all. His ex- is concerned that he does not reliably take any of his medications. She tried to help him by setting up a pillbox but he was not using it regularly. (5) Aortic stenosis: Status: Acute Problem details: Need outpatient cardiology follow-up. (6) Weakness: Status: Acute Problem details: Chronic deconditioning and weakness progressively worsening. I explained he should not be living alone. He needs to look for assisted living. He has declined skilled rehab in the past. DS: Summary Hospital Course Hospital Course: HOSPITALIST DISCHARGE SUMMARY ATTENDING PHYSICIAN: Bita Medel MD FINAL DIAGNOSIS: TIA, brain MRI nonacute Non-STEMI, echo unchanged Chronic health conditions poorly managed HOSPITAL FOLLOWUP ISSUES: Cardiology for non STEMI REFERRALS WHILE ADMITTED: None REFERRALS AFTER DISCHARGE: Cardiology BRIEF HOSPITAL COURSE: Sulaiman is a 72-year-old several chronic health conditions. Please see H&P for further detail. Essentially came in with a a new right lower extremity weakness, increasing falls at home. He ultimately was diagnosed with a non STEMI and likely TIA. His brain MRI did not show acute changes. His echo was unchanged from previous. His troponin down trended. We set him up with Cardiology as an outpatient. OT and PT felt like he was adequate for outpatient therapies. Desire to go home as he typically does. He declined custodial rehab at his previous admission. Sulaiman I had a long talk this morning and I stressed the unavoidable need for as sistance in his daily living that is coming faster than he realizes. Worry about his continued falls. I have ordered OT home assessment for safety. I have ordered outpatient physical therapy. I encouraged him to get a Life Alert pendant. I have asked him to start working with social Work for assisted living facilities. He was tearful but I feel he had some insight at discharge. However, I feel he is a high risk for bounce back secondary to his situation and inability to care for himself. DISCHARGE MEDICATIONS: See Reconciled list REVIEW OF SYSTEMS No new chest pain or dyspnea Pain controlled No voiding difficulties Tolerating diet challenge PHYSICAL EXAM: CONSTITUTIONAL: VITAL SIGNS: see record. HEENT: Normocephalic, atraumatic. PERRL, EOMI, conjunctivae pink, no scleral i cterus. Ears and nose externally normal. Pharynx normal. NECK: No JVD. No carotid bruit, no thyromegaly, no adenopathy. CHEST: Clear to auscultation bilaterally. HEART: S1 and S2 normal. Edema ABDOMEN: Soft, nontender. Normal bowel sounds. MUSCULOSKELETAL: No gross joint deformity or swelling. NEURO: Cranial nerves intact. Grossly intact. No asymmetric findings. SKIN: No rashes, petechiae, concerning changes PSYCHIATRIC: Mood euthymic. DISPOSITION: Home with outpatient therapies. He did tell me he would go stay with his ex- for a couple of weeks. Time spent on discharge 37 minutes. Time Spent with Patient Time attestation: Total time spent providing and/or coordinating discharge services: Exam Const: Vital Signs, click to edit/add: Vital Signs - 24 hr 09/26/22 16:05 09/26/22 19:05 09/26/22 23:00 Temperature 98.5 F 98.7 F Pulse Rate 57 L Pulse Rate [Left R adial] 71 62 Respiratory Rate 18 18 Blood Pressure Blood Pressure [Le ft Arm] 113/58 L 101/55 L Pulse Oximetry 93 94 Oxygen Delivery Me thod Room Air Room Air 09/27/22 00:55 09/27/22 00:55 09/27/22 04:05 Temperature 98.6 F 97.6 F Pulse Rate Pulse Rate [Left R adial] 60 60 63 Respiratory Rate 20 20 18 Blood Pressure Blood Pressure [Le ft Arm] 136/63 148/65 H Pulse Oximetry 94 95 Oxygen Delivery Id thod Room Air Room Air 09/27/22 07:00 09/27/22 07:00 09/27/22 07:00 Temperature 97.6 F Pulse Rate 56 L Pulse Rate [Left R adial] 63 60 Respiratory Rate 12 12 Blood Pressure Blood Pressure [Le ft Arm] 111/62 Pulse Oximetry 94 Oxygen Delivery Id thod Room Air 09/27/22 11:00 09/27/22 13:22 Temperature 97.9 F 97.9 F Pulse Rate 56 L Pulse Rate [Left R adial] 67 Respiratory Rate 22 22 Blood Pressure 99/53 L Blood Pressure [Le ft Arm] 110/57 L Pulse Oximetry 95 Oxygen Delivery Id thod Room Air DS: Data Data Completed and Pending Labs on day of discharge: Labs from last 24 hours 09/27/22 09/27/22 09/27/22 07:08 06:06 04:30 WBC 4.24 L RBC 3.27 L Hgb 8.9 L Hct 27.9 L MCV 85 MCH 27 MCHC 32 RDW Coeff of Daniel 15.7 H Plt Count 156 Neut % (Auto) 55.9 Lymph % (Auto) 31.4 [place] % (Auto) 7.8 Eos % (Auto) 4.2 Baso % (Auto) 0.7 Neut # (Auto) 2.40 Lymph # (Auto) 1.30 [place] # (Auto) 0.30 Eos # (Auto) 0.20 Baso # (Auto) 0.00 VBG pH 7.419 VBG pCO2 49 VBG pO2 28.3 VBG HCO3 32 H Sodium 137 Potassium 3.4 L Chloride 102 Carbon Dioxide 32 BUN 20 Creatinine 0.7 Estimated Creat Clear 68.94 Estimated GFR 98 Glucose 108 Calcium 8.7 Stl C. diff Tox B Gene Negative Stl C. diff [id number] PRESUMPTIVE NEGATIVE Preliminary micro results at discharge 09/26/22 00:00 Blood Culture - Preliminary Blood NO GROWTH AFTER 24 HOURS 09/26/22 00:00 Blood Culture - Preliminary Blood NO GROWTH AFTER 24 HOURS Discharge Plan Discharge Disposition: Home, Self-Care Date of Admission: 09/25/22 23:57 Primary Care Provider: Jose iLnares Condition: Improved Anticipated Discharge Date/Time: 09/27/22 12:49 Discharge Medications: New loperamide 2 mg Capsule 2 mg PO BID PRNQty: 60 0RF clopidogrel 75 mg Tablet 75 mg PO DAILY Qty: 30 0RF magnesium oxide 400 mg (241.3 mg magnesium) Tablet 400 mg PO BID Qty: 60 0RF torsemide 5 mg Tablet 5 mg PO DAILY Qty: 30 0RF aspirin [Children's Aspirin] 81 mg Tablet,Chewable 81 mg PO DAILY Qty: 30 0RF Continued atorvastatin 40 mg tablet 40 mg PO DAILY metoprolol succinate 50 mg tablet extended release 24 hr 50 mg PO DAILY citalopram 10 mg tablet 10 mg PO DAILY metformin 1,000 mg tablet 1,000 mg PO BIDWM Patient Comments: pantoprazole 40 mg tablet,delayed release (DR/EC) 40 mg PO DAILY cholecalciferol (vitamin D3) 25 mcg (1,000 unit) tablet 1,000 unit PO DAILY acetaminophen 500 mg tablet 1,000 mg PO Q6H PRN potassium chloride 10 mEq capsule, extended release 20 meq PO DAILY Qty: 60 2RF lisinopril 10 mg tablet 20 mg PO DAILY Discontinued magnesium oxide 400 mg (241.3 mg magnesium) tablet 400 mg PO QID Patient Comments: torsemide 5 mg tablet 10 mg PO DAILY Discharge Orders: Discharge Order (Routine); Ordered 09/27/22 Ordered By: Bita Medel Patient Education: Loperamide (By mouth), Aspirin (By mouth), Torsemide (By mouth), Clopidogrel (By mouth), Magnesium Oxide (By mouth), Transient Ischemic Attack (DC) Additional Instructions: 1. OT for home safety eval 2. PT for range of motion, gait stability, strengthening 3. Get a [employer] life alert type of device and wear this 100% of the time 4. [facility] visit for med adherence, new meds (two new meds for heart) 5. Follow up with Cardiology as previously arranged. 6.. look at future options for assisted living - I feel this is likely needed in the future. Sliding scale insulin protocol Glucose 150 or less -no insulin Glucose 151-200 - 2 units Glucose 201-250 - 4 units Glucose 251-300 - 6 units Glucose 301-350 - 8 units Glucose 351-400 -10 units Glucose 401 and higher -12 units and call MD ? Activity Level: Activity as Tolerated Discharge Diet: Heart Healthy (2 gm sodium, low fat) Follow Up Appointments: [facility] [place] [facility] - 10/04/22 (pt has this appointment - I'm just not sure when it is scheduled. sometime in the next two weeks. ) Jose Linares MD [Primary Care Provider] - 10/03/22 1:40 pm (Patient already schedule to see Dr. Linares on date and time listed.) Forms: [employer] Info Instructions
== END 2022-09-27 13:56 | disposition home or self-care (01) | DRG 281 ==
LOC: ED 09-26 00:15 → MEDSURG 09-26 00:22
PROVIDERS: Family Medicine; Admitting Provider Family Medicine; Emergency Provider Family Medicine; PCP Family Medicine; Visit Provider Family Medicine
DX: I21.4 Non-ST elevation (NSTEMI) myocardial infarction (principal); G45.9 Transient cerebral ischemic attack, unspecified; I50.32 Chronic diastolic (congestive) heart failure; I43 Cardiomyopathy in diseases classified elsewhere; Z68.41 Body mass index [BMI] 40.0-44.9, adult; I35.0 Nonrheumatic aortic (valve) stenosis; R53.1 Weakness; I11.0 Hypertensive heart disease with heart failure; D50.9 Iron deficiency anemia, unspecified; G47.30 Sleep apnea, unspecified; E11.69 Type 2 diabetes mellitus with other specified complication; E66.9 Obesity, unspecified; C43.61 Malignant melanoma of right upper limb, including shoulder; Z91.199 Patient's noncompliance with other medical treatment and regimen due to unspecified reason; I25.10 Atherosclerotic heart disease of native coronary artery without angina pectoris; D35.2 Benign neoplasm of pituitary gland; R63.4 Abnormal weight loss; E66.01 Morbid (severe) obesity due to excess calories; K31.7 Polyp of stomach and duodenum; E83.42 Hypomagnesemia; R00.0 Tachycardia, unspecified; I44.0 Atrioventricular block, first degree; I45.10 Unspecified right bundle-branch block; E78.5 Hyperlipidemia, unspecified; N40.1 Benign prostatic hyperplasia with lower urinary tract symptoms
CPT/HCPCS: 36415; 70450; 70551; 71045; 71260; 80048; 80076; 81001; 81003; 81015; 82803; 83605; 83735; 83880; 84484; 85025; 85610; 86140; 87040; 87086; 87493; 93005; 93306; 97116; 97162; 97165; 97535; 99285; 99291; A9270; J0153; J1650; J3475; J7030; Q9967

== ENCOUNTER 2022-10-26 12:54 | Outpatient (CLI) | payer MEDICARE, SELFPAY ==
--- OUTSIDE RECORDS SUMMARY | 2022-10-31 11:41 | XMS_ITS | Continuity of Care Document ---
Author Name Unknown Organization [facility] Address [address] [address] [place] [address] Phone Care Team Providers Care Laundry Manager Name Role Phone Stefan Omalley MD Unavailable Unavailable Allergies, Adverse Reactions, Alerts Substance [...] Active Procedures Procedure Date Offic/outpt [place] [facility] [place] Advance Directives Directive Yes / No Effective Date File Name No Information Encounters Encounter Description Practice Location Reason(s) For Visit Diagnoses Date Provider Providers Copied on Encounter [facility], [address] [address], [place], [place], [id number], [place] tel:[phone] [facility] No Information 3 Lyssa Aviles. [address], [id number], [place]. tel:[phone] [facility], [address] [address], [place], [place], [id number], [place] tel:[phone] [facility] Duodenal adenoma 3 Marita Garza. [address] [place] [address], [id number], [place]. tel:[phone] [facility], [address] [address], [place], [place], [id number], [place] tel:[phone] [facility] No Information 3 Marita Garza. [address], [id number], [place]. tel:[phone] Offic/outpt E&m [facility], [address] [address], [place], [place], [id number], [place] tel:[phone] [facility] GI Symptoms or Concerns (chief complaint) Duodenal adenoma 3 Marita Garza. [address], [id number], [place]. tel:[phone] Referring Provider: Rayshawn Vega, [address], [place], [address]. tel:[phone] [facility], [address] [address], [place], [place], [id number], [place] tel:[phone] No Information 2 No Information Referring Provider: Rayshawn Vega, [address] [facility], [place], [address]. tel:[phone] Family History Family Member Type Diagnosis Age At Onset Father Problem (finding) Peptic ulcer disease Father Problem (finding) Cancer, colon Immunizations Vaccine Date Status Comments SARS-COV-2 (COVID-19) vaccin e, mRNA, spike protein, LNP, bivalent booster, preservative free, 30 mcg/0.3 mL dose, estrella-sucrose formulation administered Note: [facility] bi-d irectional interface ; [...] Other Registry zoster vaccine, live administered Note: [facility] bi-directional interface ; Source: Other Registry Influenza, seasonal, injectable administe red Note: [facility] bi- directional interface ; Source: Other Registry Novel [id number], all formulations administered Note: [facility] bi-direct ional [...] i-directional interface ; Source: Other Registry Pneumovax 23 administered Note: [facility] bi-d irectional interface ; Source: Other Registry Influenza, seasonal, injectable administe red Note: [facility] bi- directional interface ; Source: Other Registry Payers Payer name Insurance type Covered libertarian ID Authoriza tion(s) No Information Social History Type Description Quantity Date Captured Comments Sex Male Smoking Status No Information Chief Complaint And Reason For Visit No Information Reason For Referral Reason For Referral No Information Plan Of Treatment Date Type Action Status Referral Ordered: ERCP Appointment date/timeframe: 07/04/2022 ordered Referral Ordered: EUS Appointment date/timeframe: 07/04/2022 ordered History Of Present Illness Encounter Date Complaint History Of Prese nt Illness GI Symptoms or Concerns This is a very pleasant 72-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 The patient states that he was in his usual state of health underwent an upper endoscopy and colonoscopy with an outside glass block bender. His upper endoscopy demonstrated 3 centimeter polyp [...] No Information Instructions Date Instruction Additional Infor deborah Large duodenal adeno ma Endoscopic ultrasound with [...]
== END 2022-10-26 12:55 | disposition home or self-care (01) ==
LOC: AMB 10-31 11:37
PROVIDERS: PCP Family Medicine; Visit Provider Family Medicine
DX: R53.1 Weakness (principal)
CPT/HCPCS: A0425; A0427

== ENCOUNTER 2022-10-26 13:36 | Emergency (ER) | payer MEDICARE, SELFPAY ==
[2022-10-26] VITALS (27 sets, daily range): BP systolic 75–157; BP diastolic 40–87; PULSE 49–116; RESP 16–20; TEMP 34.8–36.6; O2SAT 55–100; BMI 43.4
--- NOTE | 2022-10-26 14:00 | ED_ITS ---
HPI - General Adult General Time Seen by Provider: 14:00 Date Seen: 10/26/22 Chief complaint: Hypotension Stated complaint: Hypotension Time Seen by Provider: 10/26/22 14:00 Source: patient and RN notes reviewed Mode of arrival: ambulatory Limitations: no limitations History of Present Illness HPI narrative: Patient is a 72-year-old male that was brought in by ambulance from home where he resides with lightheadedness and weakness. EMS found his blood pressure to be systolic 80s. They did initiate an IV in his right arm and started 500 mL. Patient notes a little nausea, feels cramping in his abdomen and feels rectal pressure and pain. Did have off formed bowel movement prior to symptoms starting, no blood. He does note that he had an EGD on Sunday of this week, today is , at [facility] and they removed a large polyp. He did not have a colonoscopy. He had been on aspirin and Plavix prior, states he stopped a week before and has not restarted. No fevers. No chest pain, maybe some shortness of breath. He was admitted in our records here the through the 27 of September. He had heart failure with underlying aortic stenosis and severe aortic regurgitation. He actually came in for right-sided weakness and aspirin and Plavix was initiated. It had reportedly resolved by discharge. Related Data Home Medications Medication Instructions Recorded Confirmed atorvastatin 40 mg tablet 40 mg PO DAILY 01/10/22 09/26/22 citalopram 10 mg tablet 10 mg PO DAILY 01/10/22 09/26/22 metformin 1,000 mg tablet 1,000 mg PO BIDWM 01/10/22 09/26/22 metoprolol succinate 50 mg 50 mg PO DAILY 01/10/22 09/26/22 tablet,extended release 24 hr cholecalciferol (vitamin D3) 25 1,000 unit PO DAILY 01/23/22 09/26/22 mcg (1,000 unit) tablet pantoprazole 40 mg tablet,delayed 40 mg PO DAILY 01/23/22 09/26/22 release acetaminophen 500 mg tablet 1,000 mg PO Q6H PRN 01/30/22 09/26/22 lisinopril 10 mg tablet 20 mg PO DAILY 09/26/22 09/26/22 Previous Rx's Medication Instructions Recorded potassium chloride 10 mEq 20 meq (2 x 10 mEq) PO DAILY #60 02/03/22 capsule,extended release caps aspirin 81 mg chewable tablet 81 mg PO DAILY #30 tabs 09/27/22 (Children's Aspirin) clopidogrel 75 mg tablet 75 mg PO DAILY #30 tabs 09/27/22 loperamide 2 mg capsule 2 mg PO BID PRN #60 caps 09/27/22 magnesium oxide 400 mg (241.3 mg 400 mg PO BID #60 tabs 09/27/22 magnesium) tablet torsemide 5 mg tablet 5 mg PO DAILY #30 tabs 09/27/22 Allergies Allergy/AdvReac Type Severity Reaction Status Date / Time No Known Drug Allergies Allergy Verified 09/26/22 00:06 Review of Systems Status of ROS: Reports: 10 or more systems reviewed and unremarkable except as noted in History and below [facility] Medical History Metabolic encephalopathy ?G93.41 - Metabolic encephalopathy (ICD-10) Hyponatremia ?E87.1 - Hypo-osmolality and hyponatremia (ICD-10) Acute right-sided weakness ?R53.1 - Weakness (ICD-10) Medical non-compliance ?Z91.199 - Patient's noncompliance with other medical treatment and regimen due to unspecified reason (ICD-10) Unintentional weight loss ?R63.4 - Abnormal weight loss (ICD-10) Atrial arrhythmia ?I49.8 - Other specified cardiac arrhythmias (ICD-10) Abnormal CT of brain ?R90.89 - Other abnormal findings on diagnostic imaging of central nervous system (ICD-10) Episode of gagging ?R19.8 - Other specified symptoms and signs involving the digestive system and abdomen (ICD-10) Seborrhea of face ?L21.9 - Seborrheic dermatitis, unspecified (ICD-10) Nausea ?R11.0 - Nausea (ICD-10) Microcytic anemia ?D50.9 - Iron deficiency anemia, unspecified (ICD-10) Steroid-induced hyperglycemia ?R73.9 - Hyperglycemia, unspecified (ICD-10) ?T38.0X5A - Adverse effect of glucocorticoids and synthetic analogues, initial encounter (ICD-10) Pituitary adenoma with extrasellar extension ?D35.2 - Benign neoplasm of pituitary gland (ICD-10) Benign non-nodular prostatic hyperplasia with lower urinary tract symptoms ?N40.1 - Benign prostatic hyperplasia with lower urinary tract symptoms (ICD- 10) ASHD (arteriosclerotic heart disease) ?I25.10 - Atherosclerotic heart disease of [place] coronary artery without angina pectoris (ICD-10) Kidney stones ?N20.0 - Calculus of kidney (ICD-10) Aortic stenosis ?I35.0 - Nonrheumatic aortic (valve) stenosis (ICD-10) MRSA bacteremia ?R78.81 - Bacteremia (ICD-10) ?B95.62 - Methicillin resistant Staphylococcus aureus infection as the cause of diseases classified elsewhere (ICD-10) Postoperative hypotension ?I95.81 - Postprocedural hypotension (ICD-10) Morbid obesity ?E66.01 - Morbid (severe) obesity due to excess calories (ICD-10) Hyperlipidemia ?E78.5 - Hyperlipidemia, unspecified (ICD-10) Abnormal colonoscopy ?R93.3 - Abnormal findings on diagnostic imaging of other parts of digestive tract (ICD-10) Hx of colonic polyps ?Z86.010 - Personal history of colonic polyps (ICD-10) Sleep apnea ?G47.30 - Sleep apnea, unspecified (ICD-10) Malignant melanoma of right upper extremity ?C43.61 - Malignant melanoma of right upper limb, including shoulder (ICD-10) Hypertension ?I10 - Essential (primary) hypertension (ICD-10) Diabetes mellitus type 2 in obese ?E11.69 - Type 2 diabetes mellitus with other specified complication (ICD-10) ?E66.9 - Obesity, unspecified (ICD-10) Surgical History History of transurethral resection of prostate ?Z98.890 - Other specified postprocedural states (ICD-10) ?Z90.79 - Acquired absence of other genital organ(s) (ICD-10) 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) H/O vasectomy ?Z98.52 - Vasectomy status (ICD-10) S/P skin biopsy ?Z98.890 - Other specified postprocedural states (ICD-10) H/O nephrostomy H/O lithotripsy ?Z98.890 - Other specified postprocedural states (ICD-10) S/P laparoscopic sleeve gastrectomy ?Z98.84 - Bariatric surgery status (ICD-10) History of total right hip arthroplasty ?Z96.641 - Presence of right artificial hip joint (ICD-10) H/O umbilical hernia repair ?Z98.890 - Other specified postprocedural states (ICD-10) ?Z87.19 - Personal history of other diseases of the digestive system (ICD-10) H/O hemorrhoidectomy ?Z98.890 - Other specified postprocedural states (ICD-10) Hx of colonoscopy ?Z98.890 - Other specified postprocedural states (ICD-10) H/O right hemicolectomy ?Z90.49 - Acquired absence of other specified parts of digestive tract (ICD- 10) Hx of appendectomy ?Z90.49 - Acquired absence of other specified parts of digestive tract (ICD- 10) Family History Father Colon cancer Obesity Sister Diabetes Obesity Mother Heart disease High blood pressure Hyperlipidemia Obesity Stroke Social History Narrative: [place] Requests that we talk with his ex- about current health issues. Son is also actively involved in assisting his care. Wishes to be full code. He does not smoke. Highest level of school completed/degree received: Associate degree: occupational, technical, vocational program Smoking Status: Former smoker What tobacco products do you use: cigarettes Years smoked: 30 Smoking quit date/years: >15 years ago Do you use any of these nicotine containing products: None Second hand tobacco smoke exposure: No How often do you have a drink containing alcohol: 2-4 times a month Alcohol type: beer How many standard drinks containing alcohol do you have on a typical day: 1 or 2 How often do you have six or more drinks on one occasion: Less than monthly AUDIT-C Alcohol total score: 3 Non-prescribed substance use: denies use Caffeine: Yes (3-4 daily) Do you think of yourself as: straight/heterosexual Gender Identity: male service: No Exam Narrative: Exam Narrative: Patient is very pale, looks pasty. Sclera clear. Is able to speak in complete sentences. Oral mucosa is dry, no blood noted. Neck is thick but no no masses. Heart sounds are distant, do hear a systolic murmur, normal S1-S2, no gallop, no S3 or S4. Lung bases sound clear. Abdomen is protuberant but he states it is not more distended than normal. No guarding rebound, no specific tenderness. He states he just generally feels crampy. No bleeding into the undergarments from best I can see on attempt to inspect rectal area. He has no lower extremity edema. Systolic was in the 90's. My initial concern is GI bleeding given his symptoms. Was unable to roll him to get a rectal exam as nursing staff was working on trying to get IV placement. His right arm IV was found to be infiltrated quite quickly after arrival. We did subsequently get 2 IV sites and were eventually able to get blood for testing. Ordered 1000 mg IV TXA, 80 mg IV Protonix for concerned that this could be a GI bleed. Did tell staff to complete the 500 mL normal saline bolus initially from EMS but when that infiltrated, did start 1 L over 2 hours. Will need to watch this patient carefully given his aortic regurgitation, am quite concerned that this is GI bleed given his recent polyp removal. Patient was noted to become hypoxic, nursing staff started 4 L nasal cannula oxygen and quickly moved to 10 L non-rebreather, did go back to evaluate, lung bases still sounded clear, had staff stop his IV fluids. We still did not have many labs back including hemoglobin. Did call lab and found out his hemoglobin was 8, was 8.9 on 09/27/2022. Decision was made to give him a unit of O-negative to support blood pressure is he still had some ongoing transient hypotension. Respiratory therapy did come down and we did initiate CPAP initially. Patient started to feel sick to his stomach, had small spit up of whitish frothy emesis, really was minimal. Did give him 4 mg IV Zofran. His blood was going at this point. Did order a point of care troponin at this time thinking that this could potentially be missed ischemic disease but that came back normal. He was very diaphoretic and feeling cool and clammy, oral temperature was 94.7?. Daryn Hugger was applied. We did get a systolic pressure of 70s and the norepinephrine drip was started at the lowest dose. Consideration for sepsis was entertained given the hypotension and the hypothermia and recent endoscopy. Patient's abdomen was still not tender but also did consider the possibility of perforation as well as GI bleeding. Did initiate 2 g IV cefepime. We needed to stop the norepinephrine but has blood pressure head bounced back and was maintaining an map was well above 90, we needed the IV site to give the IV cefepime over 15 minutes. Luckily, blood pressure had improved in actually stopping the norepinephrine drip was feasible at this time. Air Care was present. Const: Vital Signs, click to edit/add: Vital Signs - 24 hr 10/26/22 13:42 10/26/22 13:53 10/26/22 14:00 Temperature 97.9 F Pulse Rate 78 78 Pulse Rate [Right Pulse Oximeter] 77 Respiratory Rate 16 Blood Pressure Blood Pressure [Ri ght Upper Arm] 99/58 L Pulse Oximetry 99 97 97 Oxygen Delivery Me thod Room Air Oxygen Flow Rate Fraction of Inspir ed Oxygen 10/26/22 14:05 10/26/22 14:08 10/26/22 14:16 Temperature Pulse Rate 81 Pulse Rate [Right Pulse Oximeter] Respiratory Rate Blood Pressure 91/64 Blood Pressure [Ri ght Upper Arm] Pulse Oximetry 99 92 80 L Oxygen Delivery Me thod Oxygen Flow Rate Fraction of Inspir ed Oxygen 10/26/22 14:18 10/26/22 14:27 10/26/22 14:30 Temperature Pulse Rate 75 Pulse Rate [Right Pulse Oximeter] Respiratory Rate Blood Pressure 95/40 L 103/56 L Blood Pressure [Ri ght Upper Arm] Pulse Oximetry 96 Oxygen Delivery Me thod Oxygen Flow Rate Fraction of Inspir ed Oxygen 10/26/22 14:37 10/26/22 14:38 10/26/22 14:50 Temperature Pulse Rate 74 80 67 Pulse Rate [Right Pulse Oximeter] Respiratory Rate 18 Blood Pressure 124/71 86/54 L Blood Pressure [Ri ght Upper Arm] Pulse Oximetry 92 91 90 Oxygen Delivery Me thod OxyMask Oxygen Flow Rate 10 Fraction of Inspir ed Oxygen 10/26/22 14:51 10/26/22 14:52 10/26/22 14:57 Temperature Pulse Rate 75 79 Pulse Rate [Right Pulse Oximeter] Respiratory Rate 18 Blood Pressure 115/87 81/50 L Blood Pressure [Ri ght Upper Arm] Pulse Oximetry 92 97 Oxygen Delivery Me thod OxyMask OxyMask OxyMask Oxygen Flow Rate 10 10 10 Fraction of Inspir ed Oxygen 10/26/22 14:58 10/26/22 15:00 10/26/22 15:01 Temperature Pulse Rate 78 77 87 Pulse Rate [Right Pulse Oximeter] Respiratory Rate Blood Pressure 85/48 L 102/71 Blood Pressure [Ri ght Upper Arm] Pulse Oximetry 96 100 99 Oxygen Delivery Me thod OxyMask OxyMask OxyMask Oxygen Flow Rate 10 10 10 Fraction of Inspir ed Oxygen 10/26/22 15:05 10/26/22 15:06 10/26/22 15:07 Temperature 94.7 F L Pulse Rate 92 70 Pulse Rate [Right Pulse Oximeter] Respiratory Rate 20 Blood Pressure 75/53 L 75/53 L Blood Pressure [Ri ght Upper Arm] Pulse Oximetry 92 89 91 Oxygen Delivery Me thod OxyMask OxyMask Oxygen Flow Rate 10 10 Fraction of Inspir ed Oxygen 10/26/22 15:15 10/26/22 15:17 10/26/22 15:23 Temperature Pulse Rate 53 L 49 L 116 H Pulse Rate [Right Pulse Oximeter] Respiratory Rate Blood Pressure 133/58 L 157/63 H Blood Pressure [Ri ght Upper Arm] Pulse Oximetry 100 100 55 L Oxygen Delivery Me thod OxyMask Oxygen Flow Rate 10 Fraction of Inspir ed Oxygen 10/26/22 15:27 10/26/22 15:28 10/26/22 15:30 Temperature Pulse Rate 63 65 Pulse Rate [Right Pulse Oximeter] Respiratory Rate Blood Pressure 152/55 H Blood Pressure [Ri ght Upper Arm] Pulse Oximetry 100 100 Oxygen Delivery Me thod Oxygen Flow Rate Fraction of Inspir ed Oxygen 0.30 Documenting provider has reviewed patient's vital signs: yes (See above for rest of physical exam.) Course Course Hospital Course: Patient was critical, was in attendance monitoring, did make 2 phone calls to [place] ED for transfer and communication. Reevaluation(s) Additional Reevaluation(s): Air care here at 3:34 p.m. care transferred to [facility]. They will be flying this patient to [place]. Consultations Consultation #1: Did speak with Dr. Monae from ER at [place], requested ER to ER transfer. He did except. At this time thoughts were that patient could perhaps go ground. Time: 14:31 Consultation #2: Did call Dr. Monae back, did let him know about the changes in respiratory status. We will be flying, he is aware of patient's status update. Time: 14:56 Vital Signs Vital signs: Initial Vital Signs Temperature 97.9 F 10/26/22 13:42 Temperature Source Temporal Artery Scan 10/26/22 13:42 Pulse Rate 77 10/26/22 13:42 Pulse Rhythm Regular 10/26/22 13:42 Respiratory Rate 16 10/26/22 13:42 Blood Pressure 99/58 L 10/26/22 13:42 Blood Pressure Mean 71 10/26/22 13:42 Blood Pressure Position Sitting 10/26/22 13:42 Pulse Oximetry 99 10/26/22 13:42 Oxygen Delivery Method Room Air 10/26/22 13:42 Vital Signs Temperature 97.9 F 10/26/22 13:42 Pulse Rate 77 10/26/22 13:42 Respiratory Rate 16 10/26/22 13:42 Blood Pressure 99/58 L 10/26/22 13:42 Pulse Oximetry 99 10/26/22 13:42 Oxygen Delivery Method Room Air 10/26/22 13:42 Temperature 94.7 F L 10/26/22 15:05 Pulse Rate 65 10/26/22 15:30 Respiratory Rate 20 10/26/22 15:05 Blood Pressure 152/55 H 10/26/22 15:28 Pulse Oximetry 100 10/26/22 15:30 Oxygen Delivery Method OxyMask 10/26/22 15:15 Oxygen Flow Rate 10 10/26/22 15:15 Fraction of Inspired Oxygen 0.30 10/26/22 15:27 Medical Decision Making Lab Data Labs: Lab Results 10/26/22 Range/Units 14:27 WBC 9.65 (4.50-11.00) K/uL RBC 2.85 L (4.30-5.90) m/uL Hgb 8.0 L (13.5-17.5) gm/dL Hct 24.2 L (37.0-53.0) % MCV 85 (80-100) fL MCH 28 (26-34) pg MCHC 33 (32-36) gm/dL RDW Coeff of Daniel 15.0 (11.5-15.5) % Plt Count 214 (140-440) K/uL Neut % (Auto) 62.3 (42.0-72.0) % Lymph % (Auto) 28.1 (20-44) % [place] % (Auto) 7.2 (0.0-11.0) % Eos % (Auto) 1.2 (0.0-7.0) % Baso % (Auto) 0.2 (0.0-3.0) % Neut # (Auto) 6.00 (1.7-7.0) K/uL Lymph # (Auto) 2.70 (0.90-2.90) K/uL [place] # (Auto) 0.70 (0.00-0.90) K/UL Eos # (Auto) 0.10 (0.00-0.50) K/uL Baso # (Auto) 0.00 (0.00-0.30) K/uL VBG pH 7.521 H (7.32-7.43) VBG pCO2 33 L (40-50) mmHG VBG pO2 37.1 (25-47) mmHG VBG HCO3 27 (21-28) mmol/L Lactate 2.4 H (0.5-1.9) mmol/L Blood Type A Positive Antibody Screen NEGATIVE Crossmatch (AHG) See Detail ECG Data Attestation: I personally reviewed and interpreted this ECG as follows: (Normal sinus rhythm, 74 beats per minute. Right bundle branch block. Do note nonspecific intra conduction delay. QT corrected 492 milliseconds.) Prior ECG tracings: available for review (Compared to EKG from 09/26/2022, current QT corrected is lower, was 518 milliseconds.) Interpretation: Repeat EKG done at 2:06 p.m.. No change on this EKG. Critical Care Time Critical Care Time Critical Care Time: Yes Attestation: The patient required my highest level preparedness to intervene emergently and I personally spent this critical care time directly and personally managing the patient. This critical care time included: Obtaining a history; Examining the patient; Pulse oximetry; Ordering and reviewing of studies; Arranging urgent treatment with development of a management plan; Evaluation of patients response to treatment; Frequent reassessment discussions with other providers. This critical care time was performed to assess and manage the high probability of imminent life-threatening deterioration that could result in multiorgan failure. It was exclusive of separate billable procedures and treating other patients and teaching time. Total Critical Care Time in Minutes: 117 Discharge Plan Discharge Clinical Impression: Acute hypotension, Hypothermia Patient Disposition: Xfer Acute Care Hospital Discharge Location: [facility] Condition: Critical Prescriptions: No Action atorvastatin 40 mg tablet 40 mg PO DAILY metoprolol succinate 50 mg tablet extended release 24 hr 50 mg PO DAILY citalopram 10 mg tablet 10 mg PO DAILY metformin 1,000 mg tablet 1,000 mg PO BIDWM Patient Comments: pantoprazole 40 mg tablet,delayed release (DR/EC) 40 mg PO DAILY cholecalciferol (vitamin D3) 25 mcg (1,000 unit) tablet 1,000 unit PO DAILY acetaminophen 500 mg tablet 1,000 mg PO Q6H PRN potassium chloride 10 mEq capsule, extended release 20 meq PO DAILY Qty: 60 2RF lisinopril 10 mg tablet 20 mg PO DAILY loperamide 2 mg Capsule 2 mg PO BID PRNQty: 60 0RF clopidogrel 75 mg Tablet 75 mg PO DAILY Qty: 30 0RF magnesium oxide 400 mg (241.3 mg magnesium) Tablet 400 mg PO BID Qty: 60 0RF torsemide 5 mg Tablet 5 mg PO DAILY Qty: 30 0RF aspirin [Children's Aspirin] 81 mg Tablet,Chewable 81 mg PO DAILY Qty: 30 0RF Follow Up/Referrals: Jose Linares MD [Primary Care Provider] -
--- NOTE | 2022-10-26 14:08 | CRLHL7_ITS ---
For Patients: As a result of the Century Cures Act, medical imaging exams and procedure reports are released immediately into your electronic medical record. You may view this report before your referring provider. If you have questions, please contact your health care provider. INDICATION: Shortness of breath, weakness. TECHNIQUE: Chest 1 views. COMPARISON: Chest CT August 2022. FINDINGS: Lungs: Normal lung volume. No consolidation. Basilar heterogeneous airspace opacities corresponding to pulmonary deformed ossifications on prior CT. Pleura: No pleural effusion or pneumothorax. Heart and Mediastinum: Normal heart size. Atherosclerotic aorta. Bones: Old right-sided rib fractures. IMPRESSION: No consolidation. Dictated by Lencho Li MD @ 10/26/2022 3:14:04 PM (Electronically Signed)
[2022-10-26] MEDS: TRANEXAMIC ACID 1,000 MG in 0.9 % SODIUM CHLORIDE 100 ml 100 ML 440 MG IVPB (14:29)
[2022-10-26] MEDS: 0.9 % SODIUM CHLORIDE 1000 ml 1,000 ML IV (14:30)
[2022-10-26] MEDS: ONDANSETRON 2 MG/ML inj 4 MG IVP (14:30)
[2022-10-26] MEDS: PANTOPRAZOLE SODIUM 40 MG INJ 80 MG IVP (14:30)
[2022-10-26 14:35] LABS: HCO3 VBG 27 mmol/L (21-28); Lactate* 2.4 mmol/L (0.5-1.9); PCO2 VBG 33 mmHG (40-50); PO2 VBG 37.1 mmHG (25-47); pH VBG 7.521 (7.32-7.43)
--- NOTE | 2022-10-26 14:45 | ED.NURSE ---
Pt O2 desatting to 85% on RA. NC applied at 4L, ineffective. Oxymask applied at 5L. Titrated up to 10L. O2 up to 90% on 10L. MD notified and in RM. Reduced IV fluids to TKO. RT called.
[2022-10-26 14:51] LABS: Red Blood Count 2.85 m/uL (4.30-5.90); White Blood Count* 9.65 K/uL (4.50-11.00)
[2022-10-26 14:52] LABS: Hematocrit 24.2 % (37.0-53.0); Mean Corpuscular HGB Conc 33 gm/dL (32-36); Mean Corpuscular Hemoglobin 28 pg (26-34); Mean Corpuscular Volume 85 fL (80-100); Neutrophils Percent Auto 62.3 % (42.0-72.0); Platelet Count* 214 K/uL (140-440)
--- NOTE | 2022-10-26 14:52 | ED.NURSE ---
Left message for patient's ex-, Erin, as patient requested she be updated ([phone])
[2022-10-26 14:53] LABS: Basophils Percent Auto 0.2 % (0.0-3.0); Eosinophils Percent Auto 1.2 % (0.0-7.0); Lymphocytes Percent Auto 28.1 % (20-44); Monocytes Percent Auto 7.2 % (0.0-11.0); Slide Review Reflex No
[2022-10-26] MEDS: CEFEPIME HCL 2 GM in 0.9 % SODIUM CHLORIDE Mini-bag 100 ML IVPB (15:00)
--- NOTE | 2022-10-26 15:00 | ED.NURSE ---
Bipap applied by RT. Pt did not tolerate bipap. Returned back to oxymask at 10L.
--- NOTE | 2022-10-26 15:19 | ED.NURSE ---
Blood started emergently 1505 in right upper arm IV.
--- NOTE | 2022-10-26 15:25 | ED.NURSE ---
O2 titrated down to 5L on oxymask. Maintaining O2 sats at 100%.
--- NOTE | 2022-10-26 15:40 | ED.NURSE ---
Pt departs with helicopter transport crew. Blood transfusion still running, not completed.
--- NOTE | 2022-10-26 15:41 | ED.NURSE ---
Update provided to [id number] Mihaela. Patient's condition, plan of care and transfer destination were discussed.
--- NOTE | 2022-10-26 16:08 | ED.NURSE ---
Report called to [facility] DIRECTOR OF ASSISTED LIVING.
[2022-10-26 16:27] LABS: Blood Urea Nitrogen* 23 mg/dL (7-30); Carbon Dioxide* 23 mmol/L (20-32); Chloride* 100 mmol/L (96-114); Creatinine* 0.8 mg/dL (0.5-1.5); Est. Creatinine Clearance* 62.43; Estimated Glomerular Filt Rate 94 ml/min; Potassium* 3.9 mmol/L (3.6-5.1); Sodium* 131 mmol/L (135-149)
[2022-10-26 16:28] LABS: Alanine Aminotransferase* 18 U/L (4-50); Albumin* 3.2 g/dL (3.3-5.0); Alkaline Phosphatase* 73 U/L (40-150); Aspartate Amino Transferase* 28 U/L (12-35); Bilirubin Total* 0.6 mg/dL (0.1-1.5); Calcium* 8.9 mg/dL (8.4-10.6); Glucose* 132 mg/dL (60-115); Magnesium* 1.6 mg/dL (1.5-2.6); Total Protein* 5.7 g/dL (6.0-8.3); Troponin I* 0.01 ng/mL (0.01-0.04)
[2022-10-26 16:44] LABS: NT Pro B Type NatriureticPept* 1370 pg/mL
== END 2022-10-26 15:50 | disposition short-term general hospital (02) ==
PROVIDERS: Emergency Provider Family Medicine; PCP Family Medicine
DX: I95.9 Hypotension, unspecified (principal); T68.XXXA Hypothermia, initial encounter
CPT/HCPCS: 36415; 36430; 71045; 80053; 82803; 83605; 83735; 83880; 84484; 85025; 86850; 86900; 86901; 86922; 93005; 94660; 94761; 96365; 96366; 96375; 99285; 99291; 99292; C9113; J0692; J2405; J7030; P9016

== ENCOUNTER 2023-01-10 13:00 | Outpatient (RCR) | payer MEDICARE, SELFPAY | END 2023-01-15 14:35 | disposition home or self-care (01) | PROVIDERS: PCP Family Medicine; Visit Provider Family Medicine | DX: Z74.09 Other reduced mobility (principal); R26.81 Unsteadiness on feet; R53.1 Weakness; Z51.89 Encounter for other specified aftercare | CPT/HCPCS: 97110; 97112; 97116; 97162; 97530 ==

== ENCOUNTER 2023-03-23 11:39 | Emergency (ER) | payer MEDICARE, SELFPAY ==
[2023-03-23 12:02] VITALS: BP 131/63; PULSE 73; RESP 18; TEMP 36.4; O2SAT 98; BMI 39.3
[2023-03-23 13:34] VITALS: BP 145/74; PULSE 79; RESP 20; O2SAT 95
[2023-03-23 14:04] VITALS: BP 129/53; PULSE 70; RESP 20; O2SAT 97
--- NOTE | 2023-03-23 14:13 | CRLHL7_ITS ---
For Patients: As a result of the Century Cures Act, medical imaging exams and procedure reports are released immediately into your electronic medical record. You may view this report before your referring provider. If you have questions, please contact your health care provider. INDICATION: Left jaw swelling COMPARISON: 01/29/2022. TECHNIQUE: CT of the neck with contrast. Multiplanar axial, coronal, and sagittal reformats were reconstructed. Intravenous contrast: 125 mL of Isovue 370. FINDINGS: There is a 0.9 x 0.4 x 1.5 cm subperiosteal abscess along the superficial margin of the left mandible. There is an immediately adjacent periapical abscesses and dental caries involving the 2nd bicuspid and 1st molar. Only a small portion of the root of the 2nd molar is in the jaw, with no adjacent periapical abscess. The more distal molars are absent. There is a large amount of adjacent cellulitis with subcutaneous soft tissue edema and skin thickening. Multiple enlarged reactive appearing lymph nodes. Generally poor dentition with multiple missing teeth and dental caries. There is an impacted right maxillary molar. No other dental abscess. Normal parotid and submandibular glands. Normal CT appearance of the thyroid gland. No venous thrombophlebitis or thrombosis. There are atherosclerotic vascular calcifications. No arterial occlusion or aneurysm. The included intracranial contents are normal. The orbits and globes are normal. The paranasal sinuses are well aerated and clear. Left partial canal wall up mastoidectomy within inferior left mastoid effusion. No middle ear effusion. The right mastoid and middle ear appear normal. Normal temporomandibular joint alignment. Degenerative change in the cervical spine. The included intracranial contents appear normal. The included lung apices are clear. IMPRESSION: Left mandibular bicuspid and molar periapical abscesses with associated subperiosteal mandibular abscess and overlying cellulitis. Please note that all CT scans at this facility use dose modulation, iterative reconstruction, and/or weight-based dosing when appropriate to reduce radiation dose to as low as reasonably achievable. Dictated by Nettie Luna MD @ 03/23/2023 4:06:26 PM (Electronically Signed)
[2023-03-23 14:32] VITALS: BP 123/53; PULSE 75; RESP 14; O2SAT 96
[2023-03-23 15:00] LABS: Chloride* 99 mmol/L (96-114); Potassium* 4.1 mmol/L (3.6-5.1); Sodium* 135 mmol/L (135-149)
[2023-03-23 15:03] LABS: Anion Gap 9 mEq/L (7-15); Blood Urea Nitrogen* 22 mg/dL (7-30); Calcium* 9.4 mg/dL (8.4-10.6); Carbon Dioxide* 27 mmol/L (20-32); Creatinine* 0.7 mg/dL (0.5-1.5); Est. Creatinine Clearance* 61.51; Estimated Glomerular Filt Rate 97 ml/min; Glucose* 116 mg/dL (60-115)
[2023-03-23 15:05] LABS: Hematocrit 25.2 % (37.0-53.0); Hemoglobin* 8.5 gm/dL (13.5-17.5); Mean Corpuscular HGB Conc 34 gm/dL (32-36); Mean Corpuscular Hemoglobin 30 pg (26-34); Mean Corpuscular Volume 89 fL (80-100); Red Blood Count 2.83 m/uL (4.30-5.90); White Blood Count* 5.57 K/uL (4.50-11.00)
--- NOTE | 2023-03-23 15:50 | ED.GENADULT ---
HPI - General Adult General Date Seen: 03/23/23 Chief complaint: Jaw Injury/Pain Stated complaint: Swelling L jaw Time Seen by Provider: 03/23/23 14:02 Source: patient Mode of arrival: ambulatory Limitations: no limitations History of Present Illness HPI narrative: Patient is a 73-year-old male presenting for left jaw swelling. He states he 1st knows that some mild swelling on Sunday. Has been gradually getting worse since last. They went to urgent care today was told to come the emergency department for evaluation. Denies any associated pain with it. Denies fevers, chills, shortness of breath, lightheadedness, dizziness, headache. States he symptoms the no difficulty breathing and says his breathing is completely normal. He has had dental issues in the past and tried to see dentist today [facility] ago to emergency department to be evaluated. He 1st went to Urgent Care then they sent him to us for CT imaging. No other concerns at this time. Related Data Home Medications Medication Instructions Recorded Confirmed atorvastatin 40 mg tablet 40 mg PO DAILY 01/10/22 03/23/23 citalopram 10 mg tablet 10 mg PO DAILY 01/10/22 03/23/23 metformin 1,000 mg tablet 1,000 mg PO BIDWM 01/10/22 03/23/23 metoprolol succinate 50 mg 50 mg PO DAILY 01/10/22 03/23/23 tablet,extended release 24 hr cholecalciferol (vitamin D3) 25 1,000 unit PO DAILY 01/23/22 03/23/23 mcg (1,000 unit) tablet pantoprazole 40 mg tablet,delayed 40 mg PO DAILY 01/23/22 03/23/23 release acetaminophen 500 mg tablet 1,000 mg PO Q6H PRN 01/30/22 03/23/23 lisinopril 10 mg tablet 20 mg PO DAILY 09/26/22 03/23/23 Previous Rx's Medication Instructions Recorded aspirin 81 mg chewable tablet 81 mg PO DAILY #30 tabs 09/27/22 (Children's Aspirin) clopidogrel 75 mg tablet 75 mg PO DAILY #30 tabs 09/27/22 loperamide 2 mg capsule 2 mg PO BID PRN #60 caps 09/27/22 magnesium oxide 400 mg (241.3 mg 400 mg PO BID #60 tabs 09/27/22 magnesium) tablet torsemide 5 mg tablet 5 mg PO DAILY #30 tabs 09/27/22 amoxicillin 875 mg-potassium 1 tab PO BID #20 tabs 03/23/23 clavulanate 125 mg tablet Allergies Allergy/AdvReac Type Severity Reaction Status Date / Time No Known Drug Allergies Allergy Verified 03/23/23 10:59 Review of Systems Status of ROS: Reports: 10 or more systems reviewed and unremarkable except as noted in History and below [facility] Medical History Metabolic encephalopathy ?G93.41 - Metabolic encephalopathy (ICD-10) Hyponatremia ?E87.1 - Hypo-osmolality and hyponatremia (ICD-10) Acute right-sided weakness ?R53.1 - Weakness (ICD-10) Medical non-compliance ?Z91.199 - Patient's noncompliance with other medical treatment and regimen due to unspecified reason (ICD-10) Unintentional weight loss ?R63.4 - Abnormal weight loss (ICD-10) Atrial arrhythmia ?I49.8 - Other specified cardiac arrhythmias (ICD-10) Abnormal CT of brain ?R90.89 - Other abnormal findings on diagnostic imaging of central nervous system (ICD-10) Episode of gagging ?R19.8 - Other specified symptoms and signs involving the digestive system and abdomen (ICD-10) Seborrhea of face ?L21.9 - Seborrheic dermatitis, unspecified (ICD-10) Nausea ?R11.0 - Nausea (ICD-10) Microcytic anemia ?D50.9 - Iron deficiency anemia, unspecified (ICD-10) Steroid-induced hyperglycemia ?R73.9 - Hyperglycemia, unspecified (ICD-10) ?T38.0X5A - Adverse effect of glucocorticoids and synthetic analogues, initial encounter (ICD-10) Pituitary adenoma with extrasellar extension ?D35.2 - Benign neoplasm of pituitary gland (ICD-10) Benign non-nodular prostatic hyperplasia with lower urinary tract symptoms ?N40.1 - Benign prostatic hyperplasia with lower urinary tract symptoms (ICD-10) ASHD (arteriosclerotic heart disease) ?I25.10 - Atherosclerotic heart disease of [place] coronary artery without angina pectoris (ICD-10) Kidney stones ?N20.0 - Calculus of kidney (ICD-10) Aortic stenosis ?I35.0 - Nonrheumatic aortic (valve) stenosis (ICD-10) MRSA bacteremia ?R78.81 - Bacteremia (ICD-10) ?B95.62 - Methicillin resistant Staphylococcus aureus infection as the cause of diseases classified elsewhere (ICD-10) Postoperative hypotension ?I95.81 - Postprocedural hypotension (ICD-10) Morbid obesity ?E66.01 - Morbid (severe) obesity due to excess calories (ICD-10) Hyperlipidemia ?E78.5 - Hyperlipidemia, unspecified (ICD-10) Abnormal colonoscopy ?R93.3 - Abnormal findings on diagnostic imaging of other parts of digestive tract (ICD-10) Hx of colonic polyps ?Z86.010 - Personal history of colonic polyps (ICD-10) Sleep apnea ?G47.30 - Sleep apnea, unspecified (ICD-10) Malignant melanoma of right upper extremity ?C43.61 - Malignant melanoma of right upper limb, including shoulder (ICD-10) Hypertension ?I10 - Essential (primary) hypertension (ICD-10) Diabetes mellitus type 2 in obese ?E11.69 - Type 2 diabetes mellitus with other specified complication (ICD-10) ?E66.9 - Obesity, unspecified (ICD-10) Surgical History History of transurethral resection of prostate ?Z98.890 - Other specified postprocedural states (ICD-10) ?Z90.79 - Acquired absence of other genital organ(s) (ICD-10) 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) H/O vasectomy ?Z98.52 - Vasectomy status (ICD-10) S/P skin biopsy ?Z98.890 - Other specified postprocedural states (ICD-10) H/O nephrostomy H/O lithotripsy ?Z98.890 - Other specified postprocedural states (ICD-10) S/P laparoscopic sleeve gastrectomy ?Z98.84 - Bariatric surgery status (ICD-10) History of total right hip arthroplasty ?Z96.641 - Presence of right artificial hip joint (ICD-10) H/O umbilical hernia repair ?Z98.890 - Other specified postprocedural states (ICD-10) ?Z87.19 - Personal history of other diseases of the digestive system (ICD-10) H/O hemorrhoidectomy ?Z98.890 - Other specified postprocedural states (ICD-10) Hx of colonoscopy ?Z98.890 - Other specified postprocedural states (ICD-10) H/O right hemicolectomy ?Z90.49 - Acquired absence of other specified parts of digestive tract (ICD-10) Hx of appendectomy ?Z90.49 - Acquired absence of other specified parts of digestive tract (ICD-10) Family History Father Colon cancer Obesity Sister Diabetes Obesity Mother Heart disease High blood pressure Hyperlipidemia Obesity Stroke Social History Narrative: [place] Requests that we talk with his ex- about current health issues. Son is also actively involved in assisting his care. Wishes to be full code. He does not smoke. Highest level of school completed/degree received: Associate degree: occupational, technical, vocational program Smoking Status: Former smoker What tobacco products do you use: cigarettes Years smoked: 30 Smoking quit date/years: >15 years ago Do you use any of these nicotine containing products: None Second hand tobacco smoke exposure: No How often do you have a drink containing alcohol: 2-4 times a month Alcohol type: beer How many standard drinks containing alcohol do you have on a typical day: 1 or 2 How often do you have six or more drinks on one occasion: Less than monthly AUDIT-C Alcohol total score: 3 Non-prescribed substance use: denies use Caffeine: Yes (3-4 daily) Do you think of yourself as: straight/heterosexual Gender Identity: male service: No Exam Narrative: Exam Narrative: Const: Well-nourished, Well-developed, in mild distress Eyes: PERRL, no conjunctival injection, and symmetrical lids HENT: Atraumatic external nose and ears. Moist mucous membranes. Swelling noted to left jaw. Poor dentition with multiple dental caries Neck: Symmetric, trachea midline, No thyromegaly. CVS: RRR, No murmurs or gallops. Peripheral pulses 2+ and equal in all extremities RESP: Unlabored respiratory effort. Clear to auscultation bilaterally. GI: Nontender/Nondistended, No rebound or guarding. MSK:Extremities w/o deformity, Normal Active ROM Skin: Warm, Dry. No rashes or lesions. Neuro: Normal Muscle tone, No focal neurological deficits. Psych: Awake, Alert, & Oriented x3. Appropriate mood and affect. Const: Vital Signs, click to edit/add: Vital Signs - 24 hr 03/23/23 12:02 03/23/23 13:34 03/23/23 14:04 Temperature 97.5 F L Pulse Rate 70 Pulse Rate [Pulse Oximeter] 73 79 Respiratory Rate 18 20 20 Blood Pressure 129/53 L Blood Pressure [Ri ght Upper Arm] 131/63 145/74 H Pulse Oximetry 98 95 97 Oxygen Delivery Me thod Room Air Room Air 03/23/23 14:32 Temperature Pulse Rate 75 Pulse Rate [Pulse Oximeter] Respiratory Rate 14 Blood Pressure 123/53 L Blood Pressure [Ri ght Upper Arm] Pulse Oximetry 96 Oxygen Delivery Me thod Course Vital Signs Vital signs: Initial Vital Signs Temperature 97.5 F L 03/23/23 12:02 Temperature Source Temporal Artery Scan 03/23/23 12:02 Pulse Rate 73 03/23/23 12:02 Respiratory Rate 18 03/23/23 12:02 Blood Pressure 131/63 03/23/23 12:02 Blood Pressure Mean 85 03/23/23 12:02 Blood Pressure Position Sitting 03/23/23 12:02 Pulse Oximetry 98 03/23/23 12:02 Oxygen Delivery Method Room Air 03/23/23 12:02 Vital Signs Temperature 97.5 F L 03/23/23 12:02 Pulse Rate 73 03/23/23 12:02 Respiratory Rate 18 03/23/23 12:02 Blood Pressure 131/63 03/23/23 12:02 Pulse Oximetry 98 03/23/23 12:02 Oxygen Delivery Method Room Air 03/23/23 12:02 Temperature 97.5 F L 03/23/23 12:02 Pulse Rate 75 03/23/23 14:32 Respiratory Rate 14 03/23/23 14:32 Blood Pressure 123/53 L 03/23/23 14:32 Pulse Oximetry 96 03/23/23 14:32 Oxygen Delivery Method Room Air 03/23/23 13:34 Medications Administered Medications: Discontinued Medications Generic Name Dose Route Start Last Admin Trade Name Freq PRN Reason Stop Dose Admin Ampicillin Sodium/Sulbactam 100 mls @ 200 mls/hr 03/23/23 16:38 03/23/23 17:07 Sodium 3 gm/ Sodium Chloride IVPB 03/23/23 16:39 200 mls/hr ONCE ONE Administration Medical Decision Making MDM Narrative Medical decision making narrative: Patient is a 33-year-old male presenting emergency department for left jaw swelling. His vital signs are stable there is concern for abscess versus some biliary stone. Swelling does not go into the neck it is difficult to say definitively since he has a rather large neck at baseline. No signs of Markus angina or deep neck space abscess. He is breathing normally and no concern of airway compromise at this time. He does have poor dentition. Does not require any pain medicine at this time. Will do a CBC, BMP and do a CT scan with IV contrast. Lab work all returned showing no concerning abnormalities. Hemoglobin is at baseline. CT scan of of the neck does show multiple abscesses. He is otherwise doing well and showing no signs of sepsis. Patient be given a dose of IV antibiotics to be discharged home with Augmentin. I spoke him a follow-up with dental care to have the teeth removed and they state they will be calling on Sunday to schedule an appointment. He the patient and his very strict return precautions for any signs of airway compromise. They state they understand and agree. Of note the patient did ask if I could try and drain the abscess. This was attempted by could not get a good view of the abscess an ultrasound was not able the draining any purulent material Lab Data Labs: Lab Results 03/23/23 Range/Units 14:32 WBC 5.57 (4.50-11.00) K/uL RBC 2.83 L (4.30-5.90) m/uL Hgb 8.5 L (13.5-17.5) gm/dL Hct 25.2 L (37.0-53.0) % MCV 89 (80-100) fL MCH 30 (26-34) pg MCHC 34 (32-36) gm/dL RDW Coeff of Daniel 14.0 (11.5-15.5) % Plt Count (140-440) K/uL Neut % (Auto) Not Reportable Lymph % (Auto) Not Reportable Beadle % (Auto) Not Reportable Eos % (Auto) Not Reportable Baso % (Auto) Not Reportable Neut # (Auto) Not Reportable Lymph # (Auto) Not Reportable Beadle # (Auto) Not Reportable Eos # (Auto) Not Reportable Baso # (Auto) Not Reportable Clumped Platelets Many A (None) Sodium 135 (135-149) mmol/L Potassium 4.1 (3.6-5.1) mmol/L Chloride 99 (96-114) mmol/L Carbon Dioxide 27 (20-32) mmol/L Anion Gap 9 (7-15) mEq/L BUN 22 (7-30) mg/dL Creatinine 0.7 (0.5-1.5) mg/dL Estimated Creat Clear 61.51 Estimated GFR 97 ml/min Glucose 116 H (60-115) mg/dL Calcium 9.4 (8.4-10.6) mg/dL Discharge Plan Discharge Clinical Impression: Abscess, dental Patient Disposition: Home, Self-Care Condition: Stable Instructions: Dental Abscess (ED) Additional Instructions: Make sure to follow-up with a dentist on Sunday to have the teeth removed as soon as possible. Take the antibiotics as prescribed. If he starts to have any issues breathing or signs of airway problems return to the emergency department immediately. Prescriptions: New amoxicillin-pot clavulanate 875-125 mg tablet 1 tab PO BID Qty: 20 0RF No Action atorvastatin 40 mg tablet 40 mg PO DAILY metoprolol succinate 50 mg tablet extended release 24 hr 50 mg PO DAILY citalopram 10 mg tablet 10 mg PO DAILY metformin 1,000 mg tablet 1,000 mg PO BIDWM Patient Comments: pantoprazole 40 mg tablet,delayed release (DR/EC) 40 mg PO DAILY cholecalciferol (vitamin D3) 25 mcg (1,000 unit) tablet 1,000 unit PO DAILY acetaminophen 500 mg tablet 1,000 mg PO Q6H PRN lisinopril 10 mg tablet 20 mg PO DAILY loperamide 2 mg Capsule 2 mg PO BID PRNQty: 60 0RF clopidogrel 75 mg Tablet 75 mg PO DAILY Qty: 30 0RF magnesium oxide 400 mg (241.3 mg magnesium) Tablet 400 mg PO BID Qty: 60 0RF torsemide 5 mg Tablet 5 mg PO DAILY Qty: 30 0RF aspirin [Children's Aspirin] 81 mg Tablet,Chewable 81 mg PO DAILY Qty: 30 0RF Follow Up/Referrals: Jose Linares MD [Primary Care Provider] - Stand Alone Forms: [employer] [facility] [place] Info Instructions
[2023-03-23 16:01] LABS: Slide Review Reflex Req Man Differential; Total Cells Counted 100
[2023-03-23 16:02] LABS: Platelet Clumps Many
[2023-03-23] MEDS: AMPICILLIN/SULBACTAM 3 GM in 0.9 % SODIUM CHLORIDE Mini-bag 100 ML IVPB (17:07)
[2023-03-23 17:40] VITALS: BP 120/62; BP 145/74; PULSE 71; PULSE 79; RESP 12; TEMP 36.4; O2SAT 97
== END 2023-03-23 17:40 | disposition home or self-care (01) ==
PROVIDERS: Emergency Provider Student in an Organized Health Care Education/Training Program; PCP Family Medicine
DX: K04.7 Periapical abscess without sinus (principal)
CPT/HCPCS: 36415; 70491; 80048; 85025; 96365; 99283; 99284; 99285; J0295; Q9967

== ENCOUNTER 2023-04-12 13:47 | Outpatient (CLI) | payer MEDICARE, SELFPAY | END 2023-04-12 13:48 | disposition home or self-care (01) | LOC: RAD 13:48 | PROVIDERS: PCP Family Medicine; Visit Provider Internal Medicine Cardiovascular Disease | DX: I35.1 Nonrheumatic aortic (valve) insufficiency (principal); I35.0 Nonrheumatic aortic (valve) stenosis; I34.0 Nonrheumatic mitral (valve) insufficiency | CPT/HCPCS: 93306 ==

== ENCOUNTER 2024-02-08 13:42 | Outpatient (CLI) | payer MEDICARE, SELFPAY ==
--- OUTSIDE RECORDS SUMMARY | 2024-02-11 21:25 | XMS_ITS | Continuity of Care Document ---
Author Organization [facility] Address [address] [address] [place] [address] Phone Care Team Providers Care Tube Teller Name Role Phone Marita PETERSEN, Greg Unavailable [...] 600 MG - Active Procedures Procedure Date Ugi Endo; W/remov Tumor/les-sn 23 Subsqt Hosp-da E&m Minr Compl 3 Subsqt Hosp-da E&m Minr Compl 3 Subsqt Hosp-da E&m Minr Compl 3 Subsqt Hosp-da E&m Minr Compl 3 Subsqt Hosp-da E&m Minr Compl 3 Subsqt Hosp-da E&m Minr Compl 3 Init Hosp-da E&m Hi Severity 7 Ugi Endo; Dx W/wo Collec Specm Ugi Endo; W/endo Ultrasound Ex Ugi Endo; W/remov Tumor/les-sn Offic/outpt E&m New Mod Sever 3 Advance Directives Directive Yes / No Effective Date File Name No Information Encounters Encounter Description Practice Location Reason(s) For Visit Diagnoses Date Provider Providers Copied on Encounter [facility] [address] [address], [place], [place], [id number], [place] tel:[phone] [facility] No Information 3 Marita Garaz. [address] [place] [address], [facility] [address] [place], [place], [id number], [place]. tel:[phone] Referring Provider: Grge Fuchs, [facility] [address], [place], [address] . tel:[phone] Subsqt Hosp-da E&m Minr Compl [facility], [address] [address], [place], [place], [id number], [place] tel:[phone] [facility] No Information 3 Anoop Joesph. [address] [place] [address], [facility] [address] [place], [place], [id number], [place]. tel:[phone] Referring Provider: Jake Gómez, [address] [place] [address], [place], [address] . tel:[phone] Subsqt Hosp-da E&m Minr Compl [facility], [address] [address], [place], [place], [id number], [place] tel:[phone] [facility] No Information 3 Lyssa Aviles. [address] [place] [address], [facility] [address] [place], [place], [id number], [place]. tel:[phone] Referring Provider: Stefan Catherine, [address] [place] [address], [place], [address] . tel:[phone] Init Hosp-da E&m Hi Severity 7 [facility], [address] [address], [place], [place], [id number], [place] tel:[phone] [facility] No Information 3 Lyssa Aviles. [address] [place] [address], [id number], [place]. tel:[phone] Referring Provider: Rayshawn Vega, [address], [place], [address]. tel:[phone] [facility], [address] [address], [place], [place], [id number], [place] tel:[phone] [facility] Duodenal adenoma 3 Marita Garza. [address] [place] [address] [address] [place], [place], [id number], [place]. tel:[phone] [facility], [address] [address], [place], [place], [id number], [place] tel:[phone] [facility] No Information 3 Marita Garza. [address] [place] [address], [id number], [place]. tel:[phone] Referring Provider: Rayshawn Vega, [address], [place], [address]. tel:[phone] [facility], [address] [address], [place], [place], [id number], [place] tel:[phone] [facility] No Information 3 Marita Garza. [address] [facility], [place], [place], [address], [place]. tel:[phone] Offic/outpt E&m New Mod Sever [facility], [address] [address], [place], [place], [id number], [place] tel:[phone] [facility] GI Symptoms or Concerns (chief complaint) Duodenal adenoma 3 Marita Garza. [address] [facility], [place], [place], [id number], [place]. tel:[phone] Referring Provider: Rayshawn Vega, [address], [place], [address]. tel:[phone] [facility], [address] [address], [place], [place], [id number], [place] tel:[phone] No Information No Information Referring Provider: Rayshawn Vega, [address], [place], [address]. tel:[phone] Family History Family Member Type Diagnosis Age At Onset Father Problem (finding) Peptic ulcer disease Father Problem (finding) Cancer, colon Immunizations Vaccine Date Status Comments influenza, seasonal vaccine, quadrivalent, adjuvanted, 0.5mL dose, preservative free administered Note: [facility] bi-di rectional interface ; Source: Other Registry SARS-COV-2 (COVID-19) vaccin e, mRNA, spike protein, LNP, bivalent, preservative free, 30 mcg/0.3 mL dose, estrella-sucrose formulation administered Note: [facility] bi-direct ional interface ; [...] (COVID-19) vaccin e, mRNA, spike protein, LNP, bivalent, preservative free, 50 mcg/0.5 mL or 25 [...] directional interface ; Source: Other Registry Novel [id number], all formulations administered Note: [facility] bi-direct ional [...] Insurance type Covered libertarian ID Authoriza tion(s) Blue Cross Medicare Advantage [id number] Social History Type Description Quantity Date [...] upper endoscopy and colonoscopy with an outside through operator. His upper endoscopy demonstrated 3 centimeter polyp [...]
--- OUTSIDE RECORDS SUMMARY | 2024-02-11 21:25 | XMS_ITS | Referral Summary ---
Author Organization [facility] Address [address] [place] [address]. [place] [address] Care Team Providers Care Manager Of Clinical Name Role Phone MilagrosJose Primary Care Provider [phone] Allergies Active Allergy Reactions Criticality Noted Date [...] Comments Blood Pressure 130/60 05/13/2022 3:23 PM LEAF STICKER Pulse 76 05/13/2022 3:23 PM LEAF STICKER Temperature 37.2 ??C (98.9 ??F) 05/13/2022 3:23 PM CS T Respiratory Rate 18 05/13/2022 3:23 PM LEAF STICKER Oxygen Saturation 91% 05/13/2022 3:23 PM LEAF STICKER Inhaled Oxygen Concentration - - Weight 132.3 kg (291 lb 11.2 oz) 05/09/2022 5:50 AM LEAF STICKER scale Height 167.6 cm (5' 6) 05/09/2022 5:50 AM LEAF STICKER s tated Body Mass Index 47.08 05/09/2022 5:50 AM LEAF STICKER Plan of Treatment Not on file Procedures Procedure Name Priority Date/Time Associated Diagnosis Comments GLUCOSE BY METER Routine 05/13/2022 7:57 AM LEAF STICKER from Last 3 Months or Most Recently Relevant to Health Maintenance Results * (ABNORMAL) Glucose by meter (05/13/2022 7:57 AM LEAF STICKER) GLUCOSE BY METER POCT 111(H) 70 - 99 mg/dL 05/13/2022 8:05 AM LEAF STICKER [facility] POCT RESULTS Blood, Capillary BLOOD SPECIMEN / Unknown 05/13/2022 7:57 AM LEAF STICKER 05/13/2022 8:05 AM LEAF STICKER [facility] POCT RESULTS [address] [place] [address] from Last 3 Months or Most Recently Relevant to Health Maintenance Advance Directives For more information, please contact: [phone] * Full Code (Latest Code Status on [...] 9:17 PM 02/06/2016 1:05 PM Care Teams Manager Of Clinical Relationship Specialty Start Date End Date JanteJose castillo: [phone] PCP - General Family Practice 02/02/16
--- OUTSIDE RECORDS SUMMARY | 2024-02-11 21:25 | XMS_ITS | Clinical Summary ---
Author Organization [facility] Address [address] [place] [address]. [place] [address] Care Team Providers Care Treasury Consultant Name Role Phone Milagros Jose Veloz Primary Care Provider [phone] Allergies Active Allergy Reactions Criticality Noted Date [...] Comments Blood Pressure 130/60 05/13/2022 3:23 PM WAREHOUSE DELIVERY DRIVER Pulse 76 05/13/2022 3:23 PM WAREHOUSE DELIVERY DRIVER Temperature 37.2 ??C (98.9 ??F) 05/13/2022 3:23 PM CS T Respiratory Rate 18 05/13/2022 3:23 PM WAREHOUSE DELIVERY DRIVER Oxygen Saturation 91% 05/13/2022 3:23 PM WAREHOUSE DELIVERY DRIVER Inhaled Oxygen Concentration - - Weight 132.3 kg (291 lb 11.2 oz) 05/09/2022 5:50 AM WAREHOUSE DELIVERY DRIVER scale Height 167.6 cm (5' 6) 05/09/2022 5:50 AM WAREHOUSE DELIVERY DRIVER s tated Body Mass Index 47.08 05/09/2022 5:50 AM WAREHOUSE DELIVERY DRIVER Plan of Treatment Health Maintenance Due Date [...] GLUCOSE BY METER Routine 05/13/2022 7:57 AM WAREHOUSE DELIVERY DRIVER from Last 3 Months or Most Recently Relevant to Health Maintenance Results * (ABNORMAL) Glucose by meter (05/13/2022 7:57 AM WAREHOUSE DELIVERY DRIVER) GLUCOSE BY METER POCT 111(H) 70 - 99 mg/dL 05/13/2022 8:05 AM WAREHOUSE DELIVERY DRIVER [facility] POCT RESULTS Blood, Capillary BLOOD SPECIMEN / Unknown 05/13/2022 7:57 AM WAREHOUSE DELIVERY DRIVER 05/13/2022 8:05 AM WAREHOUSE DELIVERY DRIVER Lencho Walsh MD LAB - [facility] POCT [facility] POCT RESULTS [address] [place] [address] from Last 3 Months or Most Recently Relevant to Health Maintenance Advance Directives For more information, please contact: [phone] * Full Code (Latest Code Status on [...] 9:17 PM 02/06/2016 1:05 PM Care Teams Treasury Consultant Relationship Specialty Start Date End Date Votel, Jose Veloz PCP - General Family Practice 02/02/16
--- OUTSIDE RECORDS SUMMARY | 2024-02-11 21:26 | XMS_ITS | Clinical Summary ---
Author Organization [facility] Address [place], [place] [address] Care Team Providers Care Medical Instrument Cable Fabricator Name Role Phone Jose Linares MD Primary [...] type, unspecified whether angina present, unspecified whether chitimacha or transplanted heart Chew 1 Tablet (81 [...] Department Care Team Description 02/08/2024 Nurse Triage [facility] [address] [place] [address] Jose Lianres MD Chest Pain 01/15/2024 1:15 PM CDT Office Visit [facility] [address] [place] [address] Jose Linares MD Blood Pressure (Follow up) 01/15/2024 Travel 01/03/2024 12:30 PM CDT Office Visit [facility] [address] [place] [address] Librado Jacques, AuD Hearing Aid 01/03/2024 Travel 12/13/2023 1:40 PM CDT Office Visit [facility] [address] [place] [address] Jose Linares MD Medicare ANNUAL (subsequent) Visit (73 year old male); Diabetes 12/13/2023 Travel 11/25/2023 Refill [facility] [address] [place] [address] Jose Linares MD Refill Request (Spironolactone) 11/23/2023 Refill [facility] [address] [place] [address] Jose Linares MD Refill Request (Amlodipine Besylate 5mg) from Last 3 Months Immunizations Name Administration Dates Next Due AMB Influenza, IIV3 (Age >=3 years)(Flu Clinic Only) 02/26/2013 COVID-19 vaccine (Moderna 100mcg/0.5mL) PF, MDV 10/28/2021,08/26/2021,02/20/2021,07/27,06/29/2020 COVID-19 vaccine (Truly-Bio NTech 30mcg/0.3mL) 12YO+ BIVALENT PF, MDV 09/05/2022 COVID-19 vaccine (Truly-Bio NTech 30mcg/0.3mL) PF, MDV 08/05/2022,10/28/2021 Influenza A [...] history exists Medical Devices Implanted Type Area Instrument Mechanics Supervisor Device Identifier Shelf Expiration Date Model / Serial / Lot Amplatz Ureteral Stent Set Implanted:Qty: 1 on 06/02/2013 at [facility] [id number]-10.2-2 4-AMP- / / Description:AMPLATZ URETERAL STENT [...] CDT COLONOSCOPY DIAGNOSTIC Routine 04/04/2022 6:56 AM METAL MOLDER Screening for colon cancer from Last 3 Months or Most Recently Relevant to Health Maintenance Results * (ABNORMAL) URINE ALBUMIN TO CREATININE RATIO, RANDOM (12/13/2023 1:46 PM CDT) ALB RAND URINE 59.5 mg/L 12/14/2023 12:05 AM CDT [facility] CREATININE,URIN E 1.38 g/L 12/14/2023 12:05 AM CDT [facility] ALBUMIN TO CREATININE RATIO,RAND UR 43.1(H) <30.0 mg/g creat 12/14/2023 12:05 AM CDT [facility] Urine URINE SPECIMEN / Unknown Non-Blood / Unknown 12/13/2023 1:46 PM CDT 12/13/2023 1:46 PM CDT [facility]ative [facility] 12/14/2023 12:05 AM CDT If Albumin to Creatinine Ratio is elevated, consider the following: ? Elevations seen with incipient nephropathy associated ?? with diabetes mellitus or hypertension. Stress, exercise,hematuria, ?? and urinary tract infection may also produce elevated results. If clinically indicated, confirm with ?24 Hour Albumin to Creatinine Ratio. ?? Jose Linares MD URINE [facility] [address] [place] [address], * (ABNORMAL) CBC WITH AUTO DIFFERENTIAL (12/13/2023 1:45 PM CDT) WHITE BLOOD COUNT 7.8 4.5 - 11.0 thou/cu mm 12/13/2023 1:53 PM CDT [facility] RED BLOOD COUNT 3.15(L) 4.30 - 5.90 mil/cu mm 12/13/2023 1:53 PM CDT [facility] HEMOGLOBIN 9.2(L) 13.5 - 17.5 g/dL 12/13/2023 1:53 PM CDT [facility] HEMATOCRIT 27.3(L) 37.0 - 53.0 % 12/13/2023 1:53 PM CDT [facility] MCV 87 80 - 100 fL 12/13/2023 1:53 PM CDT [facility] MCH 29.2 26.0 - 34.0 pg 12/13/2023 1:53 PM CDT [facility] MCHC 33.7 32.0 - 36.0 g/dL 12/13/2023 1:53 PM CDT [facility] RDW 13.8 11.5 - 15.5 % 12/13/2023 1:53 PM CDT [facility] PLATELET COUNT 214 140 - 440 thou/cu mm 12/13/2023 1:53 PM CDT [facility] MPV 10.3 6.5 - 11.0 fL 12/13/2023 1:53 PM CDT [facility] % NEUT 34.8 % 12/13/2023 1:53 PM CDT [facility] % LYMPH 50.8 % 12/13/2023 1:53 PM CDT [facility] % MONO 8.0 % 12/13/2023 1:53 PM CDT [facility] % EOS 5.5 % 12/13/2023 1:53 PM CDT [facility] % BASO 0.9 % 12/13/2023 1:53 PM CDT [facility] ABSOLUTE NEUTROPHILS 2.7 1.7 - 7.0 thou/cu mm 12/13/2023 1:53 PM CDT [facility] ABSOLUTE LYMPHOCYTES 4.0(H) 0.9 - 2.9 thou/cu mm 12/13/2023 1:53 PM CDT [facility] ABSOLUTE MONOCYTES 0.6 <0.9 thou/cu mm 12/13/2023 1:53 PM CDT [facility] ABSOLUTE EOSINOPHILS 0.4 <0.5 thou/cu mm 12/13/2023 1:53 PM CDT [facility] ABSOLUTE BASOPHILS 0.1 <0.3 thou/cu mm 12/13/2023 1:53 PM CDT [facility] Blood BLOOD SPECIMEN / Unknown Venipuncture / Unknown 12/13/2023 1:45 PM CDT 12/13/2023 1:45 PM CDT Jose Linares MD HEMATOLOGY [facility] [address] [place] [address], * LIPID PANEL W REFLEX MEASURED LDL (12/13/2023 1:45 PM CDT) CHOLESTEROL,TOTAL 134 100 - 199 mg/dL 12/13/2023 10:46 PM CDT [facility] Comment: Cholesterol, Total Reference Ranges Desirable <200 mg/dL Borderline 200-239 mg/dL High >=240 mg/dL TRIGLYCERIDES 96 <150 mg/dL 12/13/2023 10:46 PM CDT [facility] TRAL LABORATORY HDL CHOLESTEROL 54 >40 mg/dL 10:46 PM CDT [facility] NON-HDL CHOLESTEROL 80 <145 mg/dl 12/13/2023 10:46 PM CDT [facility] CHOL/HDL RATIO 2.48 <4.50 12/13/2023 10:46 PM CDT [facility] LDL CHOLESTEROL 61 <=130 mg/dL 12/13/2023 10:46 PM CDT [facility] TRA LABORATORY VLDL CHOLESTEROL 19 <=30 mg/dL 12/13/2023 10:46 PM CDT [facility] LAB[facility] PROVIDER ORDERED STATUS RANDOM 12/13/2023 10:46 PM CDT [facility] Blood BLOOD SPECIMEN / Unknown Venipuncture / Unknown 12/13/2023 1:45 PM CDT 12/13/2023 1:45 PM CDT Jose Linares MD CHEMISTRY Performing Organization Address City/[facility]/ZIP Co de Phone Number [facility] [address] [place] [address], [place] * ALT (SGPT) (12/13/2023 1:45 PM CDT) ALT (SGPT) 15 10 - 50 IU/L 12/13/2023 10:46 PM CDT [facility] Blood BLOOD SPECIMEN / Unknown Venipuncture / Unknown 12/13/2023 1:45 PM CDT 12/13/2023 1:45 PM CDT Jose Linares MD CHEMISTRY Performing Organization Address City/[facility]/ZIP Co de Phone Number [facility] [address] [place] [address], [place] * HEMOGLOBIN A1C MONITORING (POCT) (12/13/2023 1:45 PM CDT) HEMOGLOBIN A1C MONITORING (POCT) 5.5 <=6.4 % 12/13/2023 1:57 PM CDT [facility] Blood BLOOD SPECIMEN / Unknown Venipuncture / Unknown 12/13/2023 1:45 PM CDT 12/13/2023 1:45 PM CDT Narrative [facility] - 12/13/2023 1:57 PM CDT ? (<=6.9%) [...] Anemias, Splenectomy ? Jose Linares MD CHEMISTRY [facility] [address] [place] [address], * (ABNORMAL) BASIC METABOLIC PANEL (12/13/2023 1:45 PM CDT) SODIUM 136 136 - 145 mmol/L 12/13/2023 10:46 PM CDT [facility] POTASSIUM 4.5 3.5 - 5.1 mmol/L 12/13/2023 10:46 PM CDT [facility] CHLORIDE 99 98 - 107 mmol/L 12/13/2023 10:46 PM CDT [facility] CO2,TOTAL 26 22 - 29 mmol/L 12/13/2023 10:46 PM CDT [facility] ANION GAP 11 5 - 18 12/13/2023 10:46 PM CDT [facility] GLUCOSE 107(H) 70 - 99 mg/dL 12/13/2023 10:46 PM CDT [facility] CALCIUM 9.7 8.8 - 10.2 mg/dL 12/13/2023 10:46 PM CDT [facility] BUN 20 8 - 23 mg/dL 12/13/2023 10:46 PM CDT [facility] CREATININE 0.83 0.70 - 1.20 mg/dL 12/13/2023 10:46 PM CDT [facility] BUN/CREAT RATIO 24(H) 10 - 20 10:46 PM CDT [facility] eGFR >90 >90 mL/min/1.7 3m2 12/13/2023 10:46 PM CDT [facility] Comment:As of 2021, eG [...] 1:45 PM CDT Jose Linares MD CHEMISTRY [facility] [address] [place] [address], [place] * CTA CHEST ABDOMEN PELVIS AORTIC [...] CHEST ABDOMEN PELVIS AORTIC DISSECTION W LOCATION: [facility] DATE: 10/26/2022 INDICATION: Anemia. GI bleed. COMPARISON: 01/10/2022 TECHNIQUE: CT angiogram chest abdomen pelvis during arterial phase of injection of IV contrast. 2D and 3D MIP reconstructions were performed by the agricultural research technologist. Dose reduction techniques were used. CONTRAST: [...] CHEST ABDOMEN PELVIS AORTIC DISSECTION W LOCATION: [facility] MEDICAL [facility] DATE: 10/26/2022 INDICATION: Anemia. GI bleed. COMPARISON: 01/10/2022 TECHNIQUE: CT angiogram chest abdomen pelvis during arterial phase ofinjection of IV contrast. 2D and 3D MIP reconstructions were performed bythe agricultural research technologist. Dose reduction techniques were used. CONTRAST: [...] CT * COLONOSCOPY DIAGNOSTIC (04/03/2022 12:00 AM METAL MOLDER) Jose Linares MD GI PROCEDURE ORD from [...] Not DiscussedPer Advance Care Plan Care Teams Medical Instrument Cable Fabricator Relationship Specialty Start Date End Date Votel, Jose Bateman MD [address] [place] [address] PCP - General Family Practice 08/17/11
== END 2024-02-08 13:43 | disposition home or self-care (01) ==
LOC: AMB 02-11 21:19
PROVIDERS: PCP Family Medicine; Visit Provider Family Medicine
DX: R07.89 Other chest pain (principal)
CPT/HCPCS: A0425; A0427

== ENCOUNTER 2024-02-08 14:08 | Emergency (ER) | payer MEDICARE, SELFPAY ==
[2024-02-08] VITALS (21 sets, daily range): BP systolic 100–123; BP diastolic 45–67; PULSE 61–88; RESP 20; TEMP 36.3; O2SAT 91–100; BMI 37.6
--- NOTE | 2024-02-08 14:49 | ED.GENADULT ---
HPI - General Adult General Chief complaint: Chest Pain Stated complaint: Chest pain Time Seen by Provider: 02/08/24 14:48 History of Present Illness HPI narrative: Chest pain started this morning, epigastric area . Thought it was from mac n cheese a few days ago. No pain without movement, exertion causes pain and SOB. 325 mg ASA en route. Normal sinus on EMS monitors. BG 90s. 74-year-old man presenting to the emergency depart with concern of epigastric area chest pain. his has been going on most the time over the last day and half to 2 days ever since he ate mac n cheese. Describes a burning pain between the xiphoid and the bellybutton. 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 Has intermittent loose stools. Rather gassy. No bowel movement today but did have bowel movement the 2 days prior. Feels like he is rather distended. Later noting to nursing that has been having dark stools are since this prior GI bleed. Related Data Home Medications ?Medication ?Instructions ?Recorded ?Confirmed atorvastatin 40 mg tablet 40 mg PO DAILY 01/10/22 02/08/24 citalopram 10 mg tablet 10 mg PO DAILY 01/10/22 02/08/24 metformin 1,000 mg tablet 1,000 mg PO BIDWM 01/10/22 02/08/24 metoprolol succinate 50 mg 50 mg PO DAILY 01/10/22 02/08/24 tablet,extended release 24 hr cholecalciferol (vitamin D3) 25 1,000 unit PO DAILY 01/23/22 02/08/24 mcg (1,000 unit) tablet pantoprazole 40 mg tablet,delayed 40 mg PO DAILY 01/23/22 02/08/24 release acetaminophen 500 mg tablet 1,000 mg PO Q6H PRN 01/30/22 02/08/24 lisinopril 10 mg tablet 20 mg PO DAILY 09/26/22 02/08/24 amlodipine 5 mg tablet 5 mg PO DAILY 02/08/24 02/08/24 spironolactone 25 mg tablet 25 mg PO DAILY 02/08/24 02/08/24 Previous Rx's ?Medication ?Instructions ?Recorded aspirin 81 mg chewable tablet 81 mg PO DAILY #30 tabs 09/27/22 (Children's Aspirin) loperamide 2 mg capsule 2 mg PO BID PRN #60 caps 09/27/22 torsemide 5 mg tablet 5 mg PO DAILY #30 tabs 09/27/22 polyethylene glycol 3350 17 17 g PO BID PRN constipation #238 02/08/24 gram/dose oral powder (Miralax) grams Allergies Allergy/AdvReac Type Severity Reaction Status Date / Time No Known Drug Allergies Allergy Verified 02/08/24 14:19 Review of Systems Status of ROS: Reports: 6 or more systems reviewed and unremarkable except as noted in History and below [facility] Medical History Metabolic encephalopathy ?G93.41 - Metabolic encephalopathy (ICD-10) Hyponatremia ?E87.1 - Hypo-osmolality and hyponatremia (ICD-10) Acute right-sided weakness ?R53.1 - Weakness (ICD-10) Medical non-compliance ?Z91.199 - Patient's noncompliance with other medical treatment and regimen due to unspecified reason (ICD-10) Unintentional weight loss ?R63.4 - Abnormal weight loss (ICD-10) Atrial arrhythmia ?I49.8 - Other specified cardiac arrhythmias (ICD-10) Abnormal CT of brain ?R90.89 - Other abnormal findings on diagnostic imaging of central nervous system (ICD-10) Episode of gagging ?R19.8 - Other specified symptoms and signs involving the digestive system and abdomen (ICD-10) Seborrhea of face ?L21.9 - Seborrheic dermatitis, unspecified (ICD-10) Nausea ?R11.0 - Nausea (ICD-10) Microcytic anemia ?D50.9 - Iron deficiency anemia, unspecified (ICD-10) Steroid-induced hyperglycemia ?R73.9 - Hyperglycemia, unspecified (ICD-10) ?T38.0X5A - Adverse effect of glucocorticoids and synthetic analogues, initial encounter (ICD-10) Pituitary adenoma with extrasellar extension ?D35.2 - Benign neoplasm of pituitary gland (ICD-10) Benign non-nodular prostatic hyperplasia with lower urinary tract symptoms ?N40.1 - Benign prostatic hyperplasia with lower urinary tract symptoms (ICD-10) ASHD (arteriosclerotic heart disease) ?I25.10 - Atherosclerotic heart disease of [place] coronary artery without angina pectoris (ICD-10) Kidney stones ?N20.0 - Calculus of kidney (ICD-10) Aortic stenosis ?I35.0 - Nonrheumatic aortic (valve) stenosis (ICD-10) MRSA bacteremia ?R78.81 - Bacteremia (ICD-10) ?B95.62 - Methicillin resistant Staphylococcus aureus infection as the cause of diseases classified elsewhere (ICD-10) Postoperative hypotension ?I95.81 - Postprocedural hypotension (ICD-10) Morbid obesity ?E66.01 - Morbid (severe) obesity due to excess calories (ICD-10) Hyperlipidemia ?E78.5 - Hyperlipidemia, unspecified (ICD-10) Abnormal colonoscopy ?R93.3 - Abnormal findings on diagnostic imaging of other parts of digestive tract (ICD-10) Hx of colonic polyps ?Z86.010 - Personal history of colonic polyps (ICD-10) Sleep apnea ?G47.30 - Sleep apnea, unspecified (ICD-10) Malignant melanoma of right upper extremity ?C43.61 - Malignant melanoma of right upper limb, including shoulder (ICD-10) Hypertension ?I10 - Essential (primary) hypertension (ICD-10) Diabetes mellitus type 2 in obese ?E11.69 - Type 2 diabetes mellitus with other specified complication (ICD-10) ?E66.9 - Obesity, unspecified (ICD-10) Surgical History History of transurethral resection of prostate ?Z98.890 - Other specified postprocedural states (ICD-10) ?Z90.79 - Acquired absence of other genital organ(s) (ICD-10) 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) H/O vasectomy ?Z98.52 - Vasectomy status (ICD-10) S/P skin biopsy ?Z98.890 - Other specified postprocedural states (ICD-10) H/O nephrostomy H/O lithotripsy ?Z98.890 - Other specified postprocedural states (ICD-10) S/P laparoscopic sleeve gastrectomy ?Z98.84 - Bariatric surgery status (ICD-10) History of total right hip arthroplasty ?Z96.641 - Presence of right artificial hip joint (ICD-10) H/O umbilical hernia repair ?Z98.890 - Other specified postprocedural states (ICD-10) ?Z87.19 - Personal history of other diseases of the digestive system (ICD-10) H/O hemorrhoidectomy ?Z98.890 - Other specified postprocedural states (ICD-10) Hx of colonoscopy ?Z98.890 - Other specified postprocedural states (ICD-10) H/O right hemicolectomy ?Z90.49 - Acquired absence of other specified parts of digestive tract (ICD-10) Hx of appendectomy ?Z90.49 - Acquired absence of other specified parts of digestive tract (ICD-10) Family History Father Colon cancer Obesity Sister Diabetes Obesity Mother Heart disease High blood pressure Hyperlipidemia Obesity Stroke Social History Narrative: [place] Requests that we talk with his ex- about current health issues. Son is also actively involved in assisting his care. Wishes to be full code. He does not smoke. Highest level of school completed/degree received: Associate degree: occupational, technical, vocational program Smoking Status: Former smoker What tobacco products do you use: cigarettes Years smoked: 30 Smoking quit date/years: >15 years ago Do you use any of these nicotine containing products: None Second hand tobacco smoke exposure: No How often do you have a drink containing alcohol: 2-4 times a month Alcohol type: beer How many standard drinks containing alcohol do you have on a typical day: 1 or 2 How often do you have six or more drinks on one occasion: Less than monthly AUDIT-C Alcohol total score: 3 Non-prescribed substance use: denies use Caffeine: Yes (3-4 daily) Do you think of yourself as: straight/heterosexual Gender Identity: male service: No Exam Narrative: Exam Narrative: pleasant. NAD. Breathing easily. Skin is warm and dry. Mild dependent edema lower extremities otherwise well-perfused. Abdomen with normoactive bowel sounds. Diffusely tympanitic. Soft. Mildly tender to palpation supraumbilical midline. Heart in regular rate and rhythm with occasional ectopic beat. Const: Vital Signs, click to edit/add: Vital Signs - 24 hr 02/08/24 14:12 02/08/24 14:20 02/08/24 14:21 Temperature 97.4 F L Pulse Rate 88 72 Pulse Rate [Pulse Oximeter] 70 Respiratory Rate 20 Blood Pressure 123/67 Blood Pressure [Ri ght Upper Arm] 123/67 Pulse Oximetry 96 100 99 Oxygen Delivery Me thod Room Air 02/08/24 14:42 02/08/24 14:43 02/08/24 14:45 Temperature Pulse Rate 66 69 64 Pulse Rate [Pulse Oximeter] Respiratory Rate Blood Pressure 110/45 L Blood Pressure [Ri ght Upper Arm] Pulse Oximetry 96 99 96 Oxygen Delivery Me thod 02/08/24 15:00 02/08/24 15:02 02/08/24 15:03 Temperature Pulse Rate 72 80 83 Pulse Rate [Pulse Oximeter] Respiratory Rate Blood Pressure 113/53 L Blood Pressure [Ri ght Upper Arm] Pulse Oximetry 96 95 97 Oxygen Delivery Me thod 02/08/24 15:41 02/08/24 15:44 02/08/24 15:45 Temperature Pulse Rate 69 88 72 Pulse Rate [Pulse Oximeter] Respiratory Rate Blood Pressure 119/46 L Blood Pressure [Ri ght Upper Arm] Pulse Oximetry 96 98 100 Oxygen Delivery Me thod 02/08/24 16:00 02/08/24 16:02 02/08/24 16:15 Temperature Pulse Rate 61 72 72 Pulse Rate [Pulse Oximeter] Respiratory Rate Blood Pressure 100/60 Blood Pressure [Ri ght Upper Arm] Pulse Oximetry 91 99 96 Oxygen Delivery Me thod 02/08/24 16:30 02/08/24 16:32 02/08/24 16:45 Temperature Pulse Rate 71 68 73 Pulse Rate [Pulse Oximeter] Respiratory Rate Blood Pressure 117/55 L Blood Pressure [Ri ght Upper Arm] Pulse Oximetry 98 93 96 Oxygen Delivery Me thod 02/08/24 17:00 02/08/24 17:02 02/08/24 17:03 Temperature Pulse Rate 72 73 73 Pulse Rate [Pulse Oximeter] Respiratory Rate Blood Pressure 120/62 Blood Pressure [Ri ght Upper Arm] Pulse Oximetry 94 96 98 Oxygen Delivery Me thod Documenting provider has reviewed patient's vital signs: yes Course Vital Signs Vital signs: Initial Vital Signs Temperature 97.4 F L 02/08/24 14:12 Temperature Source Temporal Artery Scan 02/08/24 14:12 Pulse Rate 70 02/08/24 14:12 Pulse Rhythm Regular 02/08/24 14:12 Pulse Strength 3+ Normal 02/08/24 14:12 Respiratory Rate 20 02/08/24 14:12 Blood Pressure 123/67 02/08/24 14:12 Blood Pressure Mean 85 02/08/24 14:12 Blood Pressure Position Semi-Fowlers 02/08/24 14:12 Pulse Oximetry 96 02/08/24 14:12 Oxygen Delivery Method Room Air 02/08/24 14:12 Vital Signs Temperature 97.4 F L 02/08/24 14:12 Pulse Rate 70 02/08/24 14:12 Respiratory Rate 20 02/08/24 14:12 Blood Pressure 123/67 02/08/24 14:12 Pulse Oximetry 96 02/08/24 14:12 Oxygen Delivery Method Room Air 02/08/24 14:12 Temperature 97.4 F L 02/08/24 14:12 Pulse Rate 73 02/08/24 17:03 Respiratory Rate 20 02/08/24 14:12 Blood Pressure 120/62 02/08/24 17:02 Pulse Oximetry 98 02/08/24 17:03 Oxygen Delivery Method Room Air 02/08/24 14:12 Medications Administered Medications: Discontinued Medications Generic Name Dose Route Start Last Admin Trade Name Freq PRN Reason Stop Dose Admin Lidocaine/Aluminum/Magnesium/Simeth 30 ml 02/08/24 15:07 02/08/24 15:30 Gi Cocktail (Visc Lido/Antacid) 30 Ml PO 02/08/24 15:08 30 ml ONCE ONE Administration Medical Decision Making MDM Narrative Medical decision making narrative: Differential includes gastroenteritis, GERD, GI bleed, irritable bowel, ischemic cardiovascular event though present for 3 days unlikely, dissection? Doubtful small bowel obstruction. Pneumonia? Reassuring I suppose would be the lack of abdominal pain Would check hemoglobin. Abdominal and chest x-rays By my read chest x-ray without acute abnormality. Radiology over-read below Chest 1 view Comparison: Chest x-ray 10/26/2022 Findings/Impression: Cardiovascular and mediastinum: Normal heart size with atherosclerotic calcification. Lungs and pleural space: No pneumothorax. Mild reticulonodular interstitial process at the lung bases appear similar to prior. Bones and soft tissues: Air in the epigastric region, please see abdominal film of the same day. Old right 5th rib fracture. Note is made of cortical expansion of the posterior aspect of the right 5th rib, question underlying Paget`s disease. Abdominal x-ray reviewed by me with notable gaseous distension. I do not see concerning air-fluid levels. Radiology over-read as below INDICATION: Periumbilical pain, bloating TECHNIQUE: Upright and supine views. COMPARISON: Single abdomen September 29, 2013 FINDINGS: Marked gaseous distention of the colon worst in the cecum. There is a moderate distal amount of intracolonic fecal distention. There is no intra-abdominal free air or pathologic calcification. There is no acute osseous abnormality. IMPRESSION: Marked gaseous distention of the proximal colon which may represent ileus. Moderate stool is appreciated in the distal colon. Did also trial a GI cocktail and this appeared to help with this pain that he has been reporting. Certainly does not mean that there is not an oozing stomach bleed. On review of record hemoglobin has been persistently in the mid-eights and is again today. Was have a follow-up endoscopy but he has not pursued this. Encouraged to do so. See patient discharge plan for further discussion Medical Records Medical records reviewed: Yes I reviewed the patient's medical records Lab Data Lab results reviewed: Yes I reviewed the patient's lab results Labs: Lab Results 02/08/24 Range/Units 14:40 WBC 6.85 (4.50-11.00) K/uL RBC 2.97 L (4.30-5.90) m/uL Hgb 8.4 L (13.5-17.5) gm/dL Hct 25.8 L (37.0-53.0) % MCV 87 (80-100) fL MCH 28 (26-34) pg MCHC 33 (32-36) gm/dL RDW Coeff of Daniel 14.5 (11.5-15.5) % Plt Count 161 (140-440) K/uL Neut % (Auto) 57.0 (42.0-72.0) % Lymph % (Auto) 29.6 (20-44) % [place] % (Auto) 7.4 (0.0-11.0) % Eos % (Auto) 5.3 (0.0-7.0) % Baso % (Auto) 0.6 (0.0-3.0) % Neut # (Auto) 3.90 (1.7-7.0) K/uL Lymph # (Auto) 2.03 (0.90-2.90) K/uL [place] # (Auto) 0.50 (0.00-0.90) K/UL Eos # (Auto) 0.36 (0.00-0.50) K/uL Baso # (Auto) 0.04 (0.00-0.30) K/uL Abs Immat Gran (auto) 0.01 (0.00-0.30) K/uL Imm/Tot Granulo (auto) 0.1 % D-Dimer Quant (PE/DVT) 1.80 H (0.00-0.50) ug/ml Sodium 132 L (135-149) mmol/L Potassium 3.2 L (3.6-5.1) mmol/L Chloride 98 (96-114) mmol/L Carbon Dioxide 22 (20-32) mmol/L Anion Gap 12 (7-15) mEq/L BUN 18 (7-30) mg/dL Creatinine 0.7 (0.5-1.5) mg/dL Estimated Creat Clear 60.59 Estimated GFR 97 ml/min Glucose 97 (60-115) mg/dL Calcium 9.8 (8.4-10.6) mg/dL Total Bilirubin 0.5 (0.1-1.5) mg/dL Direct Bilirubin 0.1 (0.0-0.5) mg/dL AST 25 (12-35) U/L ALT 12 (4-50) U/L Alkaline Phosphatase 74 (40-150) U/L NT-Pro-B Natriuret Pep 1020 pg/mL Total Protein 6.5 (6.0-8.3) g/dL Albumin 3.9 (3.3-5.0) g/dL Lipase 99 (23-300) U/L ECG Data Attestation: I personally reviewed and interpreted this ECG as follows: (Sinus rhythm. First-degree AV block. PVCs are noted. Rate of 81. Right bundle-branch block similar to prior on review) Discharge Plan Discharge Clinical Impression: Gaseous abdominal distention, Ileus, Anemia Patient Disposition: Home w/ Parent or Adult Condition: Stable Additional Instructions: Can take liquid antacid/anti-gas for some symptom relief. I would go with a gentle diet over the 2 - 3 days. This might be due to juices, supra broths, crackers, rice, toast. You might benefit from treatment like MiraLax equivalent taking between 2-3 doses daily diluted in at least 8 oz of liquid per dose. I will send in this prescription for you. Alternative would be magnesium citrate, which you can also purchase [id number], for more clear out. For rather hard stools I would consider an enema. Please do follow-up for though scopes as discussed. You do not want to keep putting this off. Prescriptions: New polyethylene glycol 3350 [Miralax] 17 gram/dose powder 17 g PO BID PRN (Reason: constipation) Qty: 238 0RF No Action atorvastatin 40 mg tablet 40 mg PO DAILY metoprolol succinate 50 mg tablet extended release 24 hr 50 mg PO DAILY citalopram 10 mg tablet 10 mg PO DAILY metformin 1,000 mg tablet 1,000 mg PO BIDWM Patient Comments: pantoprazole 40 mg tablet,delayed release (DR/EC) 40 mg PO DAILY cholecalciferol (vitamin D3) 25 mcg (1,000 unit) tablet 1,000 unit PO DAILY acetaminophen 500 mg tablet 1,000 mg PO Q6H PRN lisinopril 10 mg tablet 20 mg PO DAILY loperamide 2 mg Capsule 2 mg PO BID PRNQty: 60 0RF torsemide 5 mg Tablet 5 mg PO DAILY Qty: 30 0RF aspirin [Children's Aspirin] 81 mg Tablet,Chewable 81 mg PO DAILY Qty: 30 0RF amlodipine 5 mg tablet 5 mg PO DAILY spironolactone 25 mg tablet 25 mg PO DAILY Follow Up/Referrals: Jose Linares MD [Primary Care Provider] - Stand Alone Forms: [employer] Info Instructions
--- NOTE | 2024-02-08 15:05 | CRLHL7_ITS ---
For Patients: As a result of the Century Cures Act, medical imaging exams and procedure reports are released immediately into your electronic medical record. You may view this report before your referring provider. If you have questions, please contact your health care provider. Indication: Cough and epigastric pain Technique: Chest 1 view Comparison: Chest x-ray 10/26/2022 Findings/Impression: Cardiovascular and mediastinum: Normal heart size with atherosclerotic calcification. Lungs and pleural space: No pneumothorax. Mild reticulonodular interstitial process at the lung bases appear similar to prior. Bones and soft tissues: Air in the epigastric region, please see abdominal film of the same day. Old right 5th rib fracture. Note is made of cortical expansion of the posterior aspect of the right 5th rib, question underlying Paget`s disease. Dictated by Singh Donovan MD @ 02/08/2024 3:58:41 PM (Electronically Signed)
--- NOTE | 2024-02-08 15:05 | CRLHL7_ITS ---
For Patients: As a result of the Century Cures Act, medical imaging exams and procedure reports are released immediately into your electronic medical record. You may view this report before your referring provider. If you have questions, please contact your health care provider. INDICATION: Periumbilical pain, bloating TECHNIQUE: Upright and supine views. COMPARISON: Single abdomen September 29, 2013 FINDINGS: Marked gaseous distention of the colon worst in the cecum. There is a moderate distal amount of intracolonic fecal distention. There is no intra-abdominal free air or pathologic calcification. There is no acute osseous abnormality. IMPRESSION: Marked gaseous distention of the proximal colon which may represent ileus. Moderate stool is appreciated in the distal colon. Dictated by Reid Fabian MD @ 02/08/2024 3:47:29 PM (Electronically Signed)
--- OUTSIDE RECORDS SUMMARY | 2024-02-08 15:15 | XMS_ITS | Clinical Summary ---
Author Organization [facility] Address [address] [place] [address]. [place] [address] Care Team Providers Care X Ray Inspector Name Role Phone Milagros Jose Veloz Primary Care Provider [phone] Allergies Active Allergy Reactions Criticality Noted Date Comments Nsaids Other (See Comments) 05/08/2022 Pt had bariatric surgery, should not ever take NSAIDS Medications Medication Sig Dispensed Refills Start Date End Date Status atorvastatin (LIPITOR) 40 MG tablet Take 40 mg by mouth every evening Active metFORMIN (GLUCOPHAGE) 1000 MG tablet Take 1,000 mg by mouth 2 times daily (with meals) Active metoprolol succinate ER (TOPROL XL) 50 MG 24 hr tablet Take 50 mg by mouth daily Active acetaminophen (TYLENOL) 325 MG tabletIndications:Sof t tissue infection,Dental infection Take 2 tablets (650 mg) by mouth every 4 hours as needed for mild pain 60 tablet 0 02/06/2016 Active cholecalciferol 25 MCG (1000 UT) TABS Take 1 tablet by mouth daily Active citalopram (CELEXA) 10 MG tablet Take 10 mg by mouth daily Active guaiFENesin (MUCINEX) 600 MG 12 hr tablet Take 1,200 mg by mouth 2 times daily Active magnesium oxide (MAG-OX) 400 MG tablet Take 400 mg by mouth 2 times daily Active pantoprazole (PROTONIX) 40 MG EC tablet Take 40 mg by mouth daily Active potassium chloride ER (KLOR-CON M) 10 MEQ CR tablet Take 20 mEq by mouth daily Active tamsulosin (FLOMAX) 0.4 MG capsule Take 0.4 mg by mouth daily Active torsemide (DEMADEX) 10 MG tablet Take 10 mg by mouth daily Active Active Problems Problem Noted Date Diagnosed Date S/P TURP (status post transurethral resection of prostate) 05/10/2022 Dental abscess 02/02/2016 Immunizations Name Administration Dates Next Due Influenza Vaccine 65+ (FLUAD) 02/13/2022 Social History Tobacco Use Types Packs/Day Years Used Date Smoking Tobacco: Former Cigarettes Q uit: 04/30/1991 Tobacco Cessation:Counseling Given: Not Answered Alcohol Use Standard Drinks/Week Comments Yes 0 (1 standard drink = 0.6 oz pur e alcohol) 2-4/month Adolescent Education Answer Date Record ed Getting School Help Needed Not on file 02/14 Sex and Gender Information Value Date Recorded Sex Assigned at Not on file Gender Identity Not on file Sexual Orientation Not on file Last Filed Vital Signs Vital Sign Reading Time Taken Comments Blood Pressure 130/60 05/13/2022 3:23 PM ASSESSMENT MANAGER Pulse 76 05/13/2022 3:23 PM ASSESSMENT MANAGER Temperature 37.2 ??C (98.9 ??F) 05/13/2022 3:23 PM CS T Respiratory Rate 18 05/13/2022 3:23 PM ASSESSMENT MANAGER Oxygen Saturation 91% 05/13/2022 3:23 PM ASSESSMENT MANAGER Inhaled Oxygen Concentration - - Weight 132.3 kg (291 lb 11.2 oz) 05/09/2022 5:50 AM ASSESSMENT MANAGER scale Height 167.6 cm (5' 6) 05/09/2022 5:50 AM ASSESSMENT MANAGER s tated Body Mass Index 47.08 05/09/2022 5:50 AM ASSESSMENT MANAGER Plan of Treatment Health Maintenance Due Date Last Done Comments ADVANCE CARE PLANNING 1950 ANNUAL REVIEW OF HM ORDERS 1950 CT COLONOGRAPHY 1950 FIT 1950 FLEX SIG 1950 LIPID 1950 sDNA (Cologuard) 1950 HEPATITIS C SCREENING 01/06/1968 LUNG CANCER SCREENING 01/06/2000 RSV VACCINE (1 - Risk 60-74 years 1-dose series) 2010 ZOSTER IMMUNIZATION (2 of 3) 03/19/2012 01/23/2012 FALL RISK ASSESSMENT 2015 MEDICARE ANNUAL WELLNESS VISIT 07/20/2022 07/20/2021 PHQ-2 (once per calendar year) 2023 COVID-19 Vaccine ( season) 2023 01/19/2022, 08/26/2021, 02/20/2021, Additional history exists INFLUENZA VACCINE (#1) 2023 2, 01/16/2021, 01/28/2020, Additional history exists GLUCOSE 05/13/2025 05/13/2022, 04/30, 05/13/2022, Additional history exists DTAP/TDAP/TD IMMUNIZATION (3 - Td or Tdap) 07/25/2026 07/25/2016, 07/27/2006, 01/25/1995 COLONOSCOPY 04/04/2032 04/04/2022, 04/03/2022 COLORECTAL CANCER SCREENING 04/04/2032 Pneumococcal Vaccine: 65+ Years Completed 08/23/2017, 02/14/2016, 07/27/2006 HPV IMMUNIZATION Aged Out No longer e ligible based on patient's age to complete this topic MENINGITIS IMMUNIZATION Aged Out No l onger eligible based on patient's age to complete this topic RSV MONOCLONAL ANTIBODY Aged Out No l onger eligible based on patient's age to complete this topic Procedures Procedure Name Priority Date/Time Associated Diagnosis Comments GLUCOSE BY METER Routine 05/13/2022 7:57 AM ASSESSMENT MANAGER from Last 3 Months or Most Recently Relevant to Health Maintenance Results * (ABNORMAL) Glucose by meter (05/13/2022 7:57 AM ASSESSMENT MANAGER) GLUCOSE BY METER POCT 111(H) 70 - 99 mg/dL 05/13/2022 8:05 AM ASSESSMENT MANAGER [facility] POCT RESULTS Blood, Capillary BLOOD SPECIMEN / Unknown 05/13/2022 7:57 AM ASSESSMENT MANAGER 05/13/2022 8:05 AM ASSESSMENT MANAGER Lencho Walsh MD LAB - BEAKER POCT [facility] POCT RESULTS [address] [place] [address] from Last 3 Months or Most Recently Relevant to Health Maintenance Advance Directives For more information, please contact: [phone] * Full Code (Latest Code Status on File) Date Activated Date Inactivated Comments 05/09/2022 2:52 PM 05/13/2022 9:01 PM All basic an d advanced life-sustaining interventions are performed as appropriate Question Answer Comments Code status determined by: Discussion with patie nt/ legal decision maker * Full Code Date Activated Date Inactivated Comments 02/06/2016 1:05 PM 05/09/2022 5:40 AM * Full Code Date Activated Date Inactivated Comments 02/02/2016 9:17 PM 02/06/2016 1:05 PM Care Teams X Ray Inspector Relationship Specialty Start Date End Date Votel, Jose Veloz PCP - General Family Practice 02/02/16
--- OUTSIDE RECORDS SUMMARY | 2024-02-08 15:15 | XMS_ITS | Referral Summary ---
Author Organization [place] Address [address] [place] [address]. [place] [address] Care Team Providers Care Appliance Mechanic Name Role Phone JanririJose Primary Care Provider [phone] Allergies Active Allergy Reactions Criticality Noted Date [...] Comments Blood Pressure 130/60 05/13/2022 3:23 PM ADULT BASIC STUDIES TEACHER Pulse 76 05/13/2022 3:23 PM ADULT BASIC STUDIES TEACHER Temperature 37.2 ??C (98.9 ??F) 05/13/2022 3:23 PM CS T Respiratory Rate 18 05/13/2022 3:23 PM ADULT BASIC STUDIES TEACHER Oxygen Saturation 91% 05/13/2022 3:23 PM ADULT BASIC STUDIES TEACHER Inhaled Oxygen Concentration - - Weight 132.3 kg (291 lb 11.2 oz) 05/09/2022 5:50 AM ADULT BASIC STUDIES TEACHER scale Height 167.6 cm (5' 6) 05/09/2022 5:50 AM ADULT BASIC STUDIES TEACHER s tated Body Mass Index 47.08 05/09/2022 5:50 AM ADULT BASIC STUDIES TEACHER Plan of Treatment Not on file Procedures Procedure Name Priority Date/Time Associated Diagnosis Comments GLUCOSE BY METER Routine 05/13/2022 7:57 AM ADULT BASIC STUDIES TEACHER from Last 3 Months or Most Recently Relevant to Health Maintenance Results * (ABNORMAL) Glucose by meter (05/13/2022 7:57 AM ADULT BASIC STUDIES TEACHER) GLUCOSE BY METER POCT 111(H) 70 - 99 mg/dL 05/13/2022 8:05 AM ADULT BASIC STUDIES TEACHER [facility] POCT RESULTS Blood, Capillary BLOOD SPECIMEN / Unknown 05/13/2022 7:57 AM ADULT BASIC STUDIES TEACHER 05/13/2022 8:05 AM ADULT BASIC STUDIES TEACHER [facility]cho Walsh [facility] PO[facility] POCT RESULTS [address] [place] [address] from Last 3 Months or Most Recently Relevant to Health Maintenance Advance Directives For more information, please contact: [phone] * Full Code (Latest Code Status on File) Date Activated Date Inactivated Comments 05/09/2022 2:52 PM 05/13/2022 9:01 PM All basic an d advanced life-sustaining interventions are performed as appropriate Question Answer Comments Code status determined by: Discussion with balaji estrada/ legal decision maker * Full Code Date Activated Date Inactivated Comments 02/06/2016 1:05 PM 05/09/2022 5:40 AM * Full Code Date Activated Date Inactivated Comments 02/02/2016 9:17 PM 02/06/2016 1:05 PM Care Teams Appliance Mechanic Relationship Specialty Start Date End Date JanteJose castillo: [phone] PCP - General Family Practice 02/02/16
--- OUTSIDE RECORDS SUMMARY | 2024-02-08 15:17 | XMS_ITS | Clinical Summary ---
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 Should not take oral NSAID's ever. Medications Medication Sig Dispensed Refills Start Date End Date Status blood-glucose meterIndications:T ype II or unspecified type diabetes mellitus without mention of complication, not stated as uncontrolled Dispense glucose meter, test strips and lancets covered by the patient insurance. Test 3 times per day. 1 Device 0 03/19/2013 Active acetaminophen (TYLENOL EXTRA STRGTH) 500 mg tablet Take 1,000 mg by mouth every 6 hours if needed. Max acetaminophen dose: 4000mg in 24 hrs. Active cholecalciferol (VITAMIN D3) 1,000 unit tablet Take 1,000 Units by mouth once daily. Active lancets (ACCU-CHEK FASTCLIX LANCING DEV)Indications:Di abetes mellitus without complication (HC) Test 3 times per day. 102 Each 6 06/10/2018 Active blood sugar diagnostic (True Metrix Glucose Test Strip) stripIndications:D iabetes mellitus type 2, insulin dependent (HC) Dispense item covered by pt ins. E11.9 IDDM type II - Test 2 times/day. 300 Each 3 10/19/2020 Active guaiFENesin (MUCINEX) 600 mg Extended-Release tablet Take 1 Tablet (600 mg) by mouth 2 times daily if needed for Expectoration. 0 01/17/2022 Active loperamide (IMODIUM) 2 mg capsule TAKE ONE CAPSULE BY MOUTH TWICE DAILY NEEDED* 09/27/2022 Active aspirin chewable 81 mg chewable tabletIndications: Coronary artery disease, unspecified vessel or lesion type, unspecified whether angina present, unspecified whether [place] or transplanted heart Chew 1 Tablet (81 mg) by mouth once daily with a meal. 0 11/02/2022 Active ferrous sulfate, 65 mg elemental, tabletIndications: Anemia due to acute blood loss Take 1 Tablet (325 mg) by mouth once daily with a meal. 100 Tablet 3 04/04/2023 Active atorvastatin (LIPITOR) 40 mg tabletIndications: ASHD (arteriosclerotic heart disease) Take 1 Tablet (40 mg) by mouth once daily. 90 Tablet 3 05/16/2023 Active citalopram (CELEXA) 10 mg tabletIndications: Depression, recurrent (HC) Take 1 Tablet (10 mg) by mouth every morning. 90 Tablet 3 05/16/2023 Active metFORMIN (GLUCOPHAGE) 1,000 mg tabletIndications: Diabetes mellitus without complication (HC) TAKE ONE TABLET (1000MG) TWICE DAILY WITH MEALS 180 Tablet 3 05/16/2023 Active metoprolol succinate (TOPROL XL) 50 mg sustained-release tabletIndications: Hypertension, unspecified type Take 1 Tablet (50 mg) by mouth once daily. 90 Tablet 3 05/16/2023 Active magnesium glycinate 100 mg magnesium capIndications:Hyp omagnesemia Take 1 Capsule by mouth once daily. 06/08/2023 Active Simethicone (Gas-X) 125 mg capsuleIndications :Chronic GERD Take 1 Capsule (125 mg) by mouth 4 times daily if needed for Flatulence. Max dose: 500 mg per 24 hrs 06/08/2023 Active pantoprazole (PROTONIX) 40 mg delayed-release tabletIndications: Chronic GERD TAKE ONE TABLET BY MOUTH ONE TIME DAILY 90 Tablet 1 10/19/2023 Active amLODIPine (NORVASC) 5 mg tabletIndications: Aortic valve insufficiency, etiology of cardiac valve disease unspecified Take 1 Tablet (5 mg) by mouth once daily. 90 Tablet 3 12/13/2023 Active lisinopriL (PRINIVIL; ZESTRIL) 10 mg tabletIndications: Essential hypertension Take 2 Tablets (20 mg) by mouth once daily. 180 Tablet 3 12/13/2023 Active spironolactone (ALDACTONE) 25 mg tabletIndications: Hypertension Take 1 Tablet (25 mg) by mouth once daily. 90 Tablet 3 12/13/2023 Active torsemide (DEMADEX) 5 mg tabletIndications: HTN (hypertension) Take 1 Tablet (5 mg) by mouth once daily. 90 Tablet 3 12/13/2023 Active Active Problems Problem Noted Date Diagnosed Date Pituitary adenoma 12/13/2023 Assessment & Plan (12/13/2023 2:17 PM CDT): Removal 2016. MRI in 2022 stable. Repeat in 2027. 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 Kidney stone 06/21/2016 Benign non-nodular prostatic hyperplasia with lower urinary tract symptoms 06/21/2016 History of kidney stones 05/29/2016 Type 2 diabetes mellitus with complication 07/20 PREETI 01/29/1994 AHI-110, 09/07/2014 Aortic stenosis 08/28/2014 Overview (08/28/2014): - echo 08/20/14: The aortic valve is calcified, moderate stenosis and mild to moderate regurgitation. - angiogram 08/28/14: mild Exertional left arm pain 08/28/2014 ASHD (arteriosclerotic heart disease) 08/28/2014 Overview (08/28/2014): - angiogram 08/28/2014: mild ASHD MRSA bacteremia 11/04/2013 Type 2 diabetes mellitus wit h kidney complication, without long-term current use of insulin 06/03/2013 Overview (06/03/2013): Hemoglobin A1C (HgbA1C) > 10 ( As of ~ 06/03/2013 ). Postoperative hypotension - acute 06/02/2013 Overview (06/03/2013): Required phenylephrine (Neosynephrine??) for a short time in post-anesthesia care unit (recovery). Morbid obesity 08/03/2010 Overview (06/03/2013): Status post (s/p) gastric bypass with gastric sleeve. Ureteral stone 01/28/2009 Overview (06/03/2013): 4.4cm !! Removed with percutaneous nephrolithotomy 06/02/13 (Dr. Rehman) Diabetes mellitus type 2 02/20/2006 Unspecified hypertension Carrier or suspected carrier of other specified bacterial diseases(V02.59) Unspecified sleep apnea Overview (06/03/2013): Uses CPAP - 18cm. HX OF COLONIC POLYPS Overview (04/06/2022): Colonoscopy 09/2014 polyp repeat in 5 years Colonoscopy 03/2022 polyp, repeat in 5 years, propofol Hyperlipidemia Steroid-induced hyperglycemia Resolved Problems Problem Noted Date Diagnosed Date Resolved Date Heart failure with preserved ejection fraction, unspecified HF chronicity 02/13/202206/01 Pituitary adenoma with extrasellar extension 7 06/27/2022 Sepsis, Gram positive 01/28/20092010 Bony callus 01/15/2009 08/03/2010 Overview (01/15/2009): 4cm callus on right posterior 5th rib; shows up as mass on chest X-ray Hydronephrosis 01/02/2009 08/03/2010 Acute renal failure 01/02/2009 08/04/19 11 Pyelonephritis 01/02/2009 08/03/2010 Sepsis with hypotension, renal failure 01/01/2009 08/03/2010 Depression, major 07/30/2008 12/04/2011 Acute pericarditis, unspecified 03/30/2003 12/04/2011 Malignant melanoma of other specified sites of skin 06/27/2022 Overview (07/26/2006): right arm in early Morbid obesity 08/03/2010 Unspecified hemorrhoids with out mention of complication 12/04/2011 Acute coronary syndrome 09/2010 Pituitary adenoma 06/27/2022 Encounters Date Type Department Care Team Description 02/08/2024 Nurse Triage [facility] [address] [place] [address] Jose Linares MD Chest Pain 01/15/2024 1:15 PM CDT Office Visit [facility] [address] [place] [address] Jose Linares MD Blood Pressure (Follow up) 01/15/2024 Travel 01/03/2024 12:30 PM CDT Office Visit [facility] [address] [place] [address] Librado Jacques, AuD Hearing Aid 01/03/2024 Travel 12/13/2023 1:40 PM CDT Office Visit [facility] [address] [place] [address] Jose Linares MD Medicare ANNUAL (subsequent) Visit (73 year old male); Diabetes 12/13/2023 Travel 11/25/2023 Refill [facility] [address] [place] [address] Jose Linares MD Refill Request (Spironolactone) 11/23/2023 Refill [facility] [address] [place] [address] Jose Linares MD Refill Request (Amlodipine Besylate 5mg) from Last 3 Months Immunizations Name Administration Dates Next Due AMB Influenza, IIV3 (Age >=3 years)(Flu Clinic Only) 02/26/2013 COVID-19 vaccine (Moderna 100mcg/0.5mL) PF, MDV 10/28/2021,08/26/2021,02/20/2021,07/27,06/29/2020 COVID-19 vaccine (Sevar Consult-Bio NTech 30mcg/0.3mL) 12YO+ BIVALENT PF, MDV 09/05/2022 COVID-19 vaccine (Sevar [employer] NTech 30mcg/0.3mL) PF, MDV 08/05/2022,10/28/2021 Influenza A (H1N1), Inactivated 04/16/2009 Influenza A (H1N1), Inactiva efraín (Age >=3 Years) 03/21/2010 Influenza Virus, Unspecified 01/13/2023, 02/04/2022,01/28/2022,02/16 Influenza, High-dose Inactivated 018,02/09/2017,02/14/2016,02/25 Influenza, High-dose Quadriv alent Inactivated 01/16/2021 Influenza, IIV3 (Age >=3 years) 01/23/20 12,12/29/2010,02/24/2010,01/15,02/18/2008,03/01/2007,02/16/2006 Influenza, Inactivated AIIV4 (Age 65+ Years) Preserv Free 01/16/2023,02/13/2022 Influenza, Inactivated IIV3 (Age 65+ Years) Preserv Free 01/28/2020,02/11/2019,02/07/2018 Pneumococcal Poly,23-Valent (Pneumovax) 08/23/2017,07/27/2006 Pneumococcal conj 13-Valent (Prevnar 13) 09/12/2021,02/14/2016 Pneumococcal, Unspecified 10/29/2019 RSV, Recombinant ADJ Reconst ituted (Arexvy 120MCG/0.5mL) 01/26/2023 Td (Age >=7 Years) 07/25/2016,01/25/1995 Tdap 07/27/2006 Zoster (Shingrix-RZV, recombinant) 12/17/2023 Zoster (Zostavax-ZVL, live) 01/23/2012 Family History Medical [...] Years Used Date Smoking Tobacco: Former Cigarettes 1 20 0 04/30/1971 - 04/30/1991 Smokeless Tobacco: Never Tobacco Cessation:Counseling Given: Yes Alcohol Use Standard Drinks/Week Comments Yes 1 (1 standard drink = 0.6 oz pur e alcohol) occ PHQ-2 Answer Date Recorded PHQ-2 TOTAL SCORE 0 12/13/2023 Social Connections Answer Date Recorded Frequency of Communication with Friends and Fami ly 4 04/02/2023 Financial Resource Strain Answer Date R ecorded Difficulty of Paying Living Expenses 3 04/02/2023 Difficulty of Paying Living Expenses Not on file 04/02/2023 Food Insecurity Answer Date Recorded Worried About Running Out of Food in the Last Ye ar 1 04/02/2023 Transportation Needs Answer Date Record ed Lack of Transportation (Medical) 1 04/02/2023 Housing Stability Answer Date Recorded Unable to Pay for Housing in the Last Year 1 04/02/2023 Sex and Gender Information Value Date Recorded Sex Assigned at Not on file Gender Identity Not on file Sexual Orientation Not on file Obstetrics History Last Filed Vital Signs Vital Sign Reading Time Taken Comments Blood Pressure 107/58 01/15/2024 1:08 PM CDT Pulse 56 01/15/2024 1:08 PM CDT Temperature 36.6 ??C (97.8 ??F) 12/13/2023 1:52 PM CD T Respiratory Rate 18 01/23/2023 10:4 5 AM CDT Oxygen Saturation 99% 01/15/2024 1:08 PM CDT Inhaled Oxygen Concentration - - Weight 112.8 kg (248 lb 11.2 oz) 01/15/2024 1:08 PM CDT Height 170.2 cm (5' 7) 12/13/2023 1:52 PM CDT Body Mass Index 38.95 12/13/2023 1:52 PM CDT Plan of Treatment Health Maintenance Due Date Last Done Comments Hepatitis C screening for ag e 18-79 01/06/1968 COVID-19 vaccine series ( season) 2023 01/26/2023, 09/05/2022, 08/05/2022, Additional history exists Influenza for age 65+ 12/30/2023 01/16/2023 , 01/13/2023, 02/13/2022, Additional history exists Zoster (shingles) series for age 50+ (3 of 3) 02/11/2024 12/17/2023, 01/23/2012 BMI (ht and wt on same day) for age 18+ 12/12/2024 12/13/2023, 05/16/2023, 05/01/2023, Additional history exists Depression screening for age 12+ 12/12/2024 12/13/2023, 04/04/2023, 04/04/2023, Additional history exists Medicare Wellness for age 65+ 12/13/2024, 08/01/2022, 07/20/2021, Additional history exists Tetanus booster 07/25/2026 07/25/2016, 06/30, 01/25/1995 Colonoscopy through age 75 04/04/202704/04, 04/03/2022, 04/03/2022, Additional history exists Lipids for age 45-75 12/12/2028 12/13/2023, 07/20/2021, 10/19/2020, Additional history exists Tdap Completed 07/27/2006 Pneumococcal series for age 65+ Completed 09/12/2021, 10/29/2019, 08/23/2017, Additional history exists AAA screening age 65-74 Completed 10/27/19, 02/28/2022, 05/29/2016, Additional history exists Medical Devices Implanted Type Area Powder Nipper Device Identifier Shelf Expiration Date Model / Serial / Lot Amplatz Ureteral Stent Set Implanted:Qty: 1 on 06/02/2013 at [facility] [id number]-10.2-2 4-AMP- / / Description:AMPLATZ URETERAL STENT SET Procedures Procedure Name Priority Date/Time Associated Diagnosis Comments URINE ALBUMIN TO CREATININE RATIO, RANDOM Routine 12/13/2023 1:46 PM CDT Diabetes mellitus type 2 CBC WITH AUTO DIFFERENTIAL Routine 12/13/2023 1:45 PM CDT Unspecified hypertension ALT (SGPT) Routine 12/13/2023 1:45 PM CDT Unspecified hypertension LIPID PANEL W REFLEX MEASURED LDL Routine 12/13/2023 1:45 PM CDT Hyperlipidemia HEMOGLOBIN A1C MONITORING (POCT) Routine 12/13/2023 1:45 PM CDT Diabetes mellitus type 2 BASIC METABOLIC PANEL Routine 12/13/2023 1:45 PM CDT Unspecified hypertension CBC WITH AUTO DIFFERENTIAL Routine 12/13/2023 1:45 PM CDT Unspecified hypertension CTA CHEST ABDOMEN PELVIS AORTIC DISSECTION W STAT 10/26/2022 5:45 PM CDT COLONOSCOPY DIAGNOSTIC Routine 04/04/2022 6:56 AM SENIOR LABEL SPECIALIST Screening for colon cancer from Last 3 Months or Most Recently Relevant to Health Maintenance Results * (ABNORMAL) URINE ALBUMIN TO CREATININE RATIO, RANDOM (12/13/2023 1:46 PM CDT) ALB RAND URINE 59.5 mg/L 12/14/2023 12:05 AM CDT [facility] CREATININE,URIN E 1.38 g/L 12/14/2023 12:05 AM CDT [facility] ALBUMIN TO CREATININE RATIO,RAND UR 43.1(H) <30.0 mg/g creat 12/14/2023 12:05 AM CDT [facility] Urine URINE SPECIMEN / Unknown Non-Blood / Unknown 12/13/2023 1:46 PM CDT 12/13/2023 1:46 PM CDT N[facility]ative [facility] 12/14/2023 12:05 AM CDT If Albumin to Creatinine Ratio is elevated, consider the following: ? Elevations seen with incipient nephropathy associated ?? with diabetes mellitus or hypertension. Stress, exercise,hematuria, ?? and urinary tract infection may also produce elevated results. If clinically indicated, confirm with ?24 Hour Albumin to Creatinine Ratio. ?? Jose Linares MD URINE [facility] [address] [place] [address], * (ABNORMAL) CBC WITH AUTO DIFFERENTIAL (12/13/2023 1:45 PM CDT) WHITE BLOOD COUNT 7.8 4.5 - 11.0 thou/cu mm 12/13/2023 1:53 PM CDT [facility] RED BLOOD COUNT 3.15(L) 4.30 - 5.90 mil/cu mm 12/13/2023 1:53 PM CDT [facility] HEMOGLOBIN 9.2(L) 13.5 - 17.5 g/dL 12/13/2023 1:53 PM CDT [facility] HEMATOCRIT 27.3(L) 37.0 - 53.0 % 12/13/2023 1:53 PM CDT [facility] MCV 87 80 - 100 fL 12/13/2023 1:53 PM CDT [facility] MCH 29.2 26.0 - 34.0 pg 12/13/2023 1:53 PM CDT [facility] MCHC 33.7 32.0 - 36.0 g/dL 12/13/2023 1:53 PM CDT [facility] RDW 13.8 11.5 - 15.5 % 12/13/2023 1:53 PM CDT [facility] PLATELET COUNT 214 140 - 440 thou/cu mm 12/13/2023 1:53 PM CDT [facility] MPV 10.3 6.5 - 11.0 fL 12/13/2023 1:53 PM CDT [facility] % NEUT 34.8 % 12/13/2023 1:53 PM CDT [facility] % LYMPH 50.8 % 12/13/2023 1:53 PM CDT [facility] % MONO 8.0 % 12/13/2023 1:53 PM CDT [facility] % EOS 5.5 % 12/13/2023 1:53 PM CDT [facility] % BASO 0.9 % 12/13/2023 1:53 PM CDT [facility] ABSOLUTE NEUTROPHILS 2.7 1.7 - 7.0 thou/cu mm 12/13/2023 1:53 PM CDT [facility] ABSOLUTE LYMPHOCYTES 4.0(H) 0.9 - 2.9 thou/cu mm 12/13/2023 1:53 PM CDT [facility] ABSOLUTE MONOCYTES 0.6 <0.9 thou/cu mm 12/13/2023 1:53 PM CDT [facility] ABSOLUTE EOSINOPHILS 0.4 <0.5 thou/cu mm 12/13/2023 1:53 PM CDT [facility] ABSOLUTE BASOPHILS 0.1 <0.3 thou/cu mm 12/13/2023 1:53 PM CDT [facility] Blood BLOOD SPECIMEN / Unknown Venipuncture / Unknown 12/13/2023 1:45 PM CDT 12/13/2023 1:45 PM CDT Jose Linares MD HEMATOLOGY [facility] [address] [place] [address], * LIPID PANEL W REFLEX MEASURED LDL (12/13/2023 1:45 PM CDT) CHOLESTEROL,TOTAL 134 100 - 199 mg/dL 12/13/2023 10:46 PM CDT [facility] Comment: Cholesterol, Total Reference Ranges Desirable <200 mg/dL Borderline 200-239 mg/dL High >=240 mg/dL TRIGLYCERIDES 96 <150 mg/dL 12/13/2023 10:46 PM CDT [facility] HDL CHOLESTEROL 54 >40 mg/dL 10:46 PM CDT [facility] NON-HDL CHOLESTEROL 80 <145 mg/dl 12/13/2023 10:46 PM CDT [facility] CHOL/HDL RATIO 2.48 <4.50 12/13/2023 10:46 PM CDT [facility] LDL CHOLESTEROL 61 <=130 mg/dL 12/13/2023 10:46 PM CDT [facility] VLDL CHOLESTEROL 19 <=30 mg/dL 12/13/2023 10:46 PM CDT [facility] PROVIDER ORDERED STATUS RANDOM 12/13/2023 10:46 PM CDT [facility] Blood BLOOD SPECIMEN / Unknown Venipuncture / Unknown 12/13/2023 1:45 PM CDT 12/13/2023 1:45 PM CDT Jose Linares MD CHEMISTRY Performing Organization Address City[facility]/ZIP Co de Phone Number [facility] [address] [place] [address], [place] * ALT (SGPT) (12/13/2023 1:45 PM CDT) ALT (SGPT) 15 10 - 50 IU/L 12/13/2023 10:46 PM CDT [facility] Blood BLOOD SPECIMEN / Unknown Venipuncture / Unknown 12/13/2023 1:45 PM CDT 12/13/2023 1:45 PM CDT Jose Linares MD CHEMISTRY Performing Organization Address City[facility]/ZIP Co de Phone Number [facility] [address] [place] [address], [place] * HEMOGLOBIN A1C MONITORING (POCT) (12/13/2023 1:45 PM CDT) HEMOGLOBIN A1C MONITORING (POCT) 5.5 <=6.4 % 12/13/2023 1:57 PM CDT [facility] Blood BLOOD SPECIMEN / Unknown Venipuncture / Unknown 12/13/2023 1:45 PM CDT 12/13/2023 1:45 PM CDT Narrative [facility] - 12/13/2023 1:57 PM CDT ? (<=6.9%) ? Indicates good control ? (7.0% to 7.9%) ? Indicates fair control ? (>=8.0%) ? Indicates poor control ?? NOTE: ??These thresholds are guidelines and ?individual targets may vary. Falsely low levels may be seen with: Recent Transfusion, Recent Significant Blood Loss, Hemolytic Diseases, or Falsely elevated levels may be seen with: Untreated Anemias, Splenectomy ? Jose Linares MD CHEMISTRY [facility] [address] [place] [address], * (ABNORMAL) BASIC METABOLIC PANEL (12/13/2023 1:45 PM CDT) SODIUM 136 136 - 145 mmol/L 12/13/2023 10:46 PM CDT [facility] POTASSIUM 4.5 3.5 - 5.1 mmol/L 12/13/2023 10:46 PM CDT [facility] CHLORIDE 99 98 - 107 mmol/L 12/13/2023 10:46 PM CDT [facility] CO2,TOTAL 26 22 - 29 mmol/L 12/13/2023 10:46 PM CDT [facility] ANION GAP 11 5 - 18 12/13/2023 10:46 PM CDT [facility] GLUCOSE 107(H) 70 - 99 mg/dL 12/13/2023 10:46 PM CDT [facility] CALCIUM 9.7 8.8 - 10.2 mg/dL 12/13/2023 10:46 PM CDT [facility] BUN 20 8 - 23 mg/dL 12/13/2023 10:46 PM CDT [facility] CREATININE 0.83 0.70 - 1.20 mg/dL 12/13/2023 10:46 PM CDT [facility] BUN/CREAT RATIO 24(H) 10 - 20 10:46 PM CDT [facility] eGFR >90 >90 mL/min/1.7 3m2 12/13/2023 10:46 PM CDT [facility] Comment:As of 2021, eG FR is calculated by the CKD-EPI creatinine equation without race adjustment. ??eGFR can be influenced by muscle mass, exercise, and diet. ??The reported eGFR is an estimation only and is only applicable if the renal function is stable. Blood BLOOD SPECIMEN / Unknown Venipuncture / Unknown 12/13/2023 1:45 PM CDT 12/13/2023 1:45 PM CDT Jose Linares MD CHEMISTRY [facility] [address] [place] [id number], [place] * CTA CHEST ABDOMEN PELVIS AORTIC DISSECTION W (10/26/2022 5:45 PM CDT) Anatomical Region Laterality Modality CHEST, Abdomen, Pelvis, AORTA, THORAX, HEART Computed Tomography 10/26/2022 5:45 PM CDT Impressions 10/26/2022 7:03 PM CDT 1. ??No active extravasation identified although the study was not optimized for evaluation of GI bleed. 2. ??Patchy infiltrate left lower lobe possibly representing early pneumonitis. 3. ??Stable bibasilar parenchymal calcifications. 4. ??Chronic pancreatitis. Narrative 10/26/2022 7:03 PM CDT For Patients: As a result of the 21st Century Cures Act, medical imaging exams and procedure reports are released immediately into your electronic medical record. You may view this report before your referring provider. If you have questions, please contact your health care provider. EXAM: CTA CHEST ABDOMEN PELVIS AORTIC DISSECTION W LOCATION: [facility] DATE: 10/26/2022 INDICATION: Anemia. GI bleed. COMPARISON: 01/10/2022 TECHNIQUE: CT angiogram chest abdomen pelvis during arterial phase of injection of IV contrast. 2D and 3D MIP reconstructions were performed by the invasive cardiovascular technologist. Dose reduction techniques were used. CONTRAST: IOHEXOL 350 MG IODINE/ML IV 500 ML BOTTLE: 120mL FINDINGS: CT ANGIOGRAM CHEST, ABDOMEN, AND PELVIS: Ascending thoracic aorta unremarkable. No evidence of aneurysm or dissection. Conventional anatomy of the great vessels. Minor calcified plaque infrarenal abdominal aorta. The celiac artery, superior mesenteric artery and inferior mesenteric artery are patent. No active extravasation was identified. 2 renal arteries supply the right kidney. 2 renal arteries supply the left kidney. No evidence of renal artery stenosis. Extensive calcified plaque infrarenal abdominal aorta. No evidence of abdominal aortic aneurysm. Calcified plaque common iliac arteries bilaterally. ??Internal and external iliac arteries are patent bilaterally. Common femoral, proximal profunda femoral and proximal superficial femoral arteries are patent bilaterally. LUNGS AND PLEURA: Patchy infiltrates left lower lobe. Bilateral small bibasilar parenchymal calcifications, left greater than right. Unchanged in comparison to previous study. Possibly related to remote aspiration of oral contrast material. MEDIASTINUM/AXILLAE: No mediastinal or hilar adenopathy. Left ventricular hypertrophy. CORONARY ARTERY CALCIFICATION: Severe. HEPATOBILIARY: Normal. PANCREAS: Pancreatic calcifications reflecting chronic pancreatitis. SPLEEN: Normal. ADRENAL GLANDS: Normal. KIDNEYS/BLADDER: Bilateral renal cysts. BOWEL: Postsurgical changes of the stomach. LYMPH NODES: Normal. PELVIC ORGANS: Normal. MUSCULOSKELETAL: Severe degenerative changes of the spine. Procedure Note Karan Villaseñor MD - 10/26/2022 For Patients: As a result of the Century Cures Act, medical imagingexams and procedure reports are released immediately into your electronicmedical record. You may view this report before your referring provider.If you have questions, please contact your health care provider. EXAM: CTA CHEST ABDOMEN PELVIS AORTIC DISSECTION W LOCATION: [facility] DATE: 10/26/2022 INDICATION: Anemia. GI bleed. COMPARISON: 01/10/2022 TECHNIQUE: CT angiogram chest abdomen pelvis during arterial phase ofinjection of IV contrast. 2D and 3D MIP reconstructions were performed bythe invasive cardiovascular technologist. Dose reduction techniques were used. CONTRAST: IOHEXOL 350 MG IODINE/ML IV 500 ML BOTTLE: 120mL FINDINGS: CT ANGIOGRAM CHEST, ABDOMEN, AND PELVIS: Ascending thoracic aortaunremarkable. No evidence of aneurysm or dissection. Conventional anatomyof the great vessels. Minor calcified plaque infrarenal abdominal aorta.The celiac artery, superior mesenteric artery and inferior mesentericartery are patent. No active extravasation was identified. 2 renalarteries supply the right kidney. 2 renal arteries supply the left kidney.No evidence of renal artery stenosis. Extensive calcified plaqueinfrarenal abdominal aorta. No evidence of abdominal aortic aneurysm.Calcified plaque common iliac arteries bilaterally. Internal and externaliliac arteries are patent bilaterally. Common femoral, proximal profundafemoral and proximal superficial femoral arteries are patentbilaterally. LUNGS AND PLEURA: Patchy infiltrates left lower lobe. Bilateral smallbibasilar parenchymal calcifications, left greater than right. Unchangedin comparison to previous study. Possibly related to remote aspiration oforal contrast material. MEDIASTINUM/AXILLAE: No mediastinal or hilar adenopathy. Left ventricularhypertrophy. CORONARY ARTERY CALCIFICATION: Severe. HEPATOBILIARY: Normal. PANCREAS: Pancreatic calcifications reflecting chronic pancreatitis. SPLEEN: Normal. ADRENAL GLANDS: Normal. KIDNEYS/BLADDER: Bilateral renal cysts. BOWEL: Postsurgical changes of the stomach. LYMPH NODES: Normal. PELVIC ORGANS: Normal. MUSCULOSKELETAL: Severe degenerative changes of the spine. IMPRESSION: 1. No active extravasation identified although the study was notoptimized for evaluation of GI bleed. 2. Patchy infiltrate left lower lobe possibly representing earlypneumonitis. 3. Stable bibasilar parenchymal calcifications. 4. Chronic pancreatitis. Darrell Jessica DO CT * COLONOSCOPY DIAGNOSTIC (04/03/2022 12:00 AM SENIOR LABEL SPECIALIST) Jose Linares MD GI PROCEDURE ORD from Last 3 Months or Most Recently Relevant to Health Maintenance Additional Health Concerns Infection Onset Date Last Indicated MRSA Clearance Comment:Infection Control Note: Hx of MRSA, surveillance criteria met, no need for further testing or isolation precautions. Do not delete or deactivate the FYI. #1 04/13/11 Nares/throat negative #2 08/29/14 Nares negative HX MRSA+ R renal fluid 01/01/09; blood 08/03/2016 08/03/2016 Advance Directives * Full Code (Latest Code Status on File) Date Activated Date Inactivated Comments 01/23/2023 9:13 AM 01/23/2023 4:11 PM Question Answer Comments Code Status Discussion: Reviewed Preferences * Full Code Date Activated Date Inactivated Comments 10/26/2022 8:58 PM 11/02/2022 4:46 PM Question Answer Comments Code Status Discussion: Reviewed Preferences * Full Code Date Activated Date Inactivated Comments 10/24/2022 8:55 AM 10/24/2022 6:36 PM Question Answer Comments Code Status Discussion: Reviewed Preferences * Full Code Date Activated Date Inactivated Comments 08/07/2016 6:55 PM 08/11/2016 5:09 PM Question Answer Comments Code Status Discussion: Not DiscussedPer Advance Care Plan * Full Code Date Activated Date Inactivated Comments 08/07/2016 10:11 AM 08/07/2016 6:53 PM Question Answer Comments Code Status Discussion: Not DiscussedPer Advance Care Plan Care Teams Overhead Line Worker Relationship Specialty Start Date End Date Votel, Jose Bateman MD [address] [place] [address] PCP - General Family Practice 08/17/11
[2024-02-08 15:19] LABS: Basophils Absolute Auto 0.04 K/uL (0.00-0.30); Basophils Percent Auto 0.6 % (0.0-3.0); Eosinophils Absolute Auto 0.36 K/uL (0.00-0.50); Eosinophils Percent Auto 5.3 % (0.0-7.0); Hematocrit 25.8 % (37.0-53.0); Hemoglobin* 8.4 gm/dL (13.5-17.5); Immature Granulocytes Abs Auto 0.01 K/uL (0.00-0.30); Immature Granulocytes Pct Auto 0.1 %; Lymphocytes Absolute Auto 2.03 K/uL (0.90-2.90); Lymphocytes Percent Auto 29.6 % (20-44); Mean Corpuscular HGB Conc 33 gm/dL (32-36); Mean Corpuscular Hemoglobin 28 pg (26-34); Mean Corpuscular Volume 87 fL (80-100); Monocytes Percent Auto 7.4 % (0.0-11.0); Platelet Count* 161 K/uL (140-440); RDW Coefficient of Variation % 14.5 % (11.5-15.5); Red Blood Count 2.97 m/uL (4.30-5.90); White Blood Count* 6.85 K/uL (4.50-11.00)
[2024-02-08 15:23] LABS: Slide Review Reflex No
[2024-02-08] MEDS: GI COCKTAIL (VISC LIDO/ANTACID) 30 ML PO (15:30)
[2024-02-08 15:42] LABS: Albumin* 3.9 g/dL (3.3-5.0); Chloride* 98 mmol/L (96-114)
[2024-02-08 15:43] LABS: Potassium* 3.2 mmol/L (3.6-5.1); Sodium* 132 mmol/L (135-149)
[2024-02-08 15:45] LABS: Alkaline Phosphatase* 74 U/L (40-150); Anion Gap 12 mEq/L (7-15); Aspartate Amino Transferase* 25 U/L (12-35); Bilirubin Direct* 0.1 mg/dL (0.0-0.5); Bilirubin Total* 0.5 mg/dL (0.1-1.5); Blood Urea Nitrogen* 18 mg/dL (7-30); Carbon Dioxide* 22 mmol/L (20-32); Creatinine* 0.7 mg/dL (0.5-1.5); Est. Creatinine Clearance* 60.59; Estimated Glomerular Filt Rate 97 ml/min; Glucose* 97 mg/dL (60-115); Lipase* 99 U/L (23-300); Total Protein* 6.5 g/dL (6.0-8.3)
[2024-02-08 15:46] LABS: Alanine Aminotransferase* 12 U/L (4-50); Calcium* 9.8 mg/dL (8.4-10.6)
[2024-02-08 15:54] LABS: NT Pro B Type NatriureticPept* 1020 pg/mL
== END 2024-02-08 17:25 | disposition home or self-care (01) ==
PROVIDERS: Emergency Provider Family Medicine; PCP Family Medicine
DX: K56.7 Ileus, unspecified (principal); R14.0 Abdominal distension (gaseous); D64.9 Anemia, unspecified
CPT/HCPCS: 36415; 71045; 74019; 80048; 80076; 83690; 83880; 85025; 85379; 99284; A9270

== ENCOUNTER 2024-07-05 12:09 | Emergency (ER) | payer MEDICARE, SELFPAY ==
[2024-07-05] VITALS (14 sets, daily range): BP systolic 118–160; BP diastolic 58–95; PULSE 51–65; RESP 9–32; TEMP 36; O2SAT 94–99; BMI 38.7
--- OUTSIDE RECORDS SUMMARY | 2024-07-05 14:04 | XMS_ITS | Data Portability ---
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 Plan of Treatment Reminders Order Date Submit Date Provider Last Modified By Organization Details Last Modified Time Details Appointments None recorded. Lab urinalysis, dipstick 2022 023 [facility], [address], [place], [address], 3 16:30:11 urinalysis, microscopic 2022 023 [facility], [address], [address], [place], [address], 4 05:01:40 urinalysis, dipstick 2022 023 [facility], [address], [address], [place], [address], 3 12:40:06 urinalysis, dipstick 2022 023 [facility], [address], [address], [place], [address], 3 11:00:44 culture, urine 2021 022 [facility], [address], [address], [place], [address], 3 12:21:53 urinalysis, dipstick 2021 022 [facility], [address], [address], [place], [address], 2 11:50:43 Referral None recorded. Procedures None recorded. Surgeries transurethr al resection of prostate (SURG) 2021 [email or web address] [place] [address], [address], [place], [address], 3 09:58:26 Imaging None recorded. Medication Orders None recorded. Patient TargetsNo targets recorded. Patient Instructions Encounter Date Encounter Id Patient Instructions Last Modified By Organization Details Last Modified Time 03/16/2022 [id number] BPH/weak stream: Discussed options including adding finasteride or looking into prostate procedures like Urolift or TURP ( transurethral resection of the prostate). He'd like to know if Urolift is an option. I recommended cystoscopy today. 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 In my hands, I would recommend the TURP. Risks and benefits were discussed. Discussed Rezum as a possibility. He wants to proceed with TURP. Will arrange. TURP Risks (Transurethral Resection of Prostate) I discussed the procedure with the patient in details, and informed him of the different steps and the possible complications and side effects, such as and not only, infection, bleeding, pain, urethral stricture, bladder neck contracture, retrograde ejaculation, injury to ureters, bladder perforation, prostatic regrowth, need for repeat or staged procedures, failure to improve his symptoms, the need to go home with a catheter and urinary incontinence. Other risks including pneumonia, blood clots, heart complications, and were also discussed. Discussed that this procedure requires at least an overnight hospital stay and that the patient will have a catheter for 3 to 5 days after the procedure. All patient questions were answered. Not available 03/16/2022 15:50:47 06/08/2022 [id number] BPH/weak stream: He's doing well. He is having some urgency and frequency which are slowly improving. His force of stream is much improved. I'll see him back in 3 months. Not available 06/08/2022 10:53:24 09/06/2022 [id number] BPH/weak stream: He's doing well with his voiding. He does have some urgency. He describes that he's constipated. Discussed that bowel issues can affect urgency/voiding patterns so if he can get his bowels to be normal, I would suspect that his urgency would be better too. Discussed that his diuretics can cause frequency/urgency as well. I'll see him back in 6 months with a PSA prior. Not available 09/06/2022 12:34:06 03/14/2023 [id number] BPH/weak stream: He's voiding well since the TURP 04/2022. His PSA was undetectable in September 2022. So long as his primary care physician gets yearly PSAs, I don't need to see him on a yearly basis. Follow up as needed. Not available 03/14/2023 16:16:23 Reason for Referral None Reported. Results Created Date Observation Date Name Description Value Unit Range Abnormal Flag Note LastModifiedBy Organization Detail LastModifiedTime 04/28/20 22 04/28/2022 UA DIP CS STATU S+ color -advantus YELLOW yellow Not Available [facility] [address] [facility] [address], [place], [address], 04/28/2022 11:50:43 04/28/20 22 04/28/2022 UA DIP CS STATU S+ appearance -advantus CLEAR clear Not Available [facility] [address] [facility] [address], [place], [address], 04/28/2022 11:50:43 04/28/20 22 04/28/2022 UA DIP CS STATU S+ glucose -advantus NEGATI VE mg/dL negati ve Not Available [facility] [address] [facility] [address], [place], [address], 04/28/2022 11:50:43 04/28/20 22 04/28/2022 UA DIP CS STATU S+ bilirubin -advantus NEGATI VE negati ve Not Available [facility] [address] [facility] [address], [place], [address], 04/28/2022 11:50:43 04/28/20 22 04/28/2022 UA DIP CS STATU S+ ketones -advantus NEGATI VE mg/dL negati ve Not Available [facility] [address] [place] [address] [address], [place], [address], 04/28/2022 11:50:43 04/28/20 22 04/28/2022 UA DIP CS STATU S+ sp. gravity -advantus 1.020 1.010- 1.025 Not Available [facility] [address] [place] [address], [place], [address], 04/28/2022 11:50:43 04/28/20 22 04/28/2022 UA DIP CS STATU S+ pH -advantus 7.0 5.0-8. 0 Not Available [facility] [address] [place] [address], [place], [address], 04/28/2022 11:50:43 04/28/20 22 04/28/2022 UA DIP CS STATU S+ protein -advantus 100 MG/DL mg/dL negati ve abnormal Not Available [facility] [address] [place] [address] [address], [place], [address], 04/28/2022 11:50:43 04/28/20 22 04/28/2022 UA DIP CS STATU S+ urobilinogen -advantus 0.2 E.U./D L 0.2 E.U./d L Not Available [facility] [address] [facility] [address], [place], [address], 04/28/2022 11:50:43 04/28/20 22 04/28/2022 UA DIP CS STATU S+ nitrites -advantus NEGATI VE negati ve Not Available [facility] [address] [facility] [address], [place], [address], 04/28/2022 11:50:43 04/28/20 22 04/28/2022 UA DIP CS STATU S+ blood -advantus NEGATI VE negati ve Not Available [facility] [address] [place] [address] [address], [place], [address], 04/28/2022 11:50:43 04/28/20 22 04/28/2022 UA DIP CS STATU S+ leukocytes -advantus NEGATI VE negati ve Not Available [facility] [address] [place] [address] [address], [place], [address], 04/28/2022 11:50:43 04/28/20 22 04/28/2022 UA DIP CS STATU S+ performed by BRITTNEE Smith Not Available [facility] [address] [place] [address] [address], [place], [address], 04/28/2022 11:50:43 04/28/20 22 04/28/2022 UA DIP CS STATU S+ total urine volume (mL) 40 /mL ----- ----- ----- ----- ----- ----- ----- ----- ----- ----- ----- ----- ----- ----- ---- *Plea se note the follo wing minim um quant ities for addit ional urine testi ng: - Atypi cals: 3 mL - Cytol ogy: 20 mL - GC/CH : 2 mL - FISH: 30 mL - Atypi cals w/ GC/CH : 5 mL - Cytol ogy PLUS FISH: 50 mL - Urine Cultu re: 3 mL ----- ----- ----- ----- ----- ----- ----- ----- ----- ----- ----- ----- ----- ----- ---- This lab resul t is being provi ded to you and your provi arash at the same time in compl iance with the Centu ry Cures Act. Your provi arash may not have had time to revie w and make recom menda tions based on the resul t. Pleas e allow up to one week for provi arash revie w. Not Available [facility] [address] [facility] [address], [place], [address], 04/28/2022 11:50:43 04/28/20 22 04/28/2022 URINE CULTU RE final report MICROB IOLOGY RESULT S abnormal SOURC E Void KNOWN ALLER GIES nkda TREAT MENT none MEDIA PLATE D AT: Media plate d on 04/28 @ 12:51 PM COLON Y COUNT 20,00 0-50, 000 cfu/m l RESUL T Enter ococc us miracle narum (Isol ate 1) Sensi tivit y Shanta sis Moodus te 1 ----- ----- ----- ----- ----- ----- ----- - AMPIC ILLIN 8*S CIPRO FLOXA CANDY >2 R GENT. SYNER GY <=500 *S LEVOF LOXAC IN >4 R NITRO FURAN TOIN <=32* S PENIC ILLIN >8 R RIFAM PIN <=1*S STREP . SYNER GY <=100 0*S TETRA CYCLI NE <=4*S VANCO MYCIN <=0.5 *S Orga nisms that are susce ptibl e to tetra cycli ne are gener ally also susce ptibl e to doxyc yclin e and minoc yclin e. Any subst ituti on of drugs which have not been teste d for sensi tivit y shoul d be consi dered based on appro vanessa usage of the drugs . Infor matio n on doxyc yclin e and minoc yclin e can be found in the Physi rossy' s Desk [facility]. S= Susce ptibl e;I= Inter media te;R= Resis tant; ESBL= Resis tance due to confi rmed ESBL This lab resul t is being provi ded to you and your provi arash at the same time in compl iance with the Centu ry Cures Act. Your provi arash may not have had time to revie w and make recom menda tions based on the resul t. Pleas e allow up to one week for provi arash revie w. Not Available [facility] [address] [place] [address] [address], [place], [address], 04/30/2022 12:21:53 06/08/19 23 06/08/2022 UA DIP CS STATU S color -advantus STRAW yellow Not Available [facility] [address] [place] [address] [address], [place], [address], 06/08/2022 11:00:44 06/08/19 23 06/08/2022 UA DIP CS STATU S appearance -advantus CLEAR clear Not Available [facility] [address] [facility] [address], [place], [address], 06/08/2022 11:00:44 06/08/19 23 06/08/2022 UA DIP CS STATU S glucose -advantus NEGATI VE mg/dL negati ve Not Available [facility] [address] [place] [address] [address], [place], [address], 06/08/2022 11:00:44 06/08/19 23 06/08/2022 UA DIP CS STATU S bilirubin -advantus NEGATI VE negati ve Not Available [facility] [address] [place] [address] [address], [place], [address], 06/08/2022 11:00:44 06/08/19 23 06/08/2022 UA DIP CS STATU S ketones -advantus NEGATI VE mg/dL negati ve Not Available [facility] [address] [place] [address] [address], [place], [address], 06/08/2022 11:00:44 06/08/19 23 06/08/2022 UA DIP CS STATU S sp. gravity -advantus >=1.03 0 1.010- 1.025 Not Available [facility] [address] [facility] [address], [place], [address], 06/08/2022 11:00:44 06/08/19 23 06/08/2022 UA DIP CS STATU S pH -advantus 6.0 5.0-8. 0 Not Available [facility] [address] [facility] [address], [place], [address], 06/08/2022 11:00:44 06/08/19 23 06/08/2022 UA DIP CS STATU S protein -advantus >=300 mg/dL negati ve abnormal Not Available [facility] [address] [place] [address], [place], [address], 06/08/2022 11:00:44 06/08/19 23 06/08/2022 UA DIP CS STATU S urobilinogen -advantus 0.2 0.2 E.U./d L Not Available [facility] [address] [place] [address] [address], [place], [address], 06/08/2022 11:00:44 06/08/19 23 06/08/2022 UA DIP CS STATU S nitrites -advantus NEGATI VE negati ve Not Available [facility] [address] [facility] [address], [place], [address], 06/08/2022 11:00:44 06/08/19 23 06/08/2022 UA DIP CS STATU S blood -advantus LARGE negati ve abnormal Not Available [facility] [address] [place] [address] [address], [place], [address], 06/08/2022 11:00:44 06/08/19 23 06/08/2022 UA DIP CS STATU S leukocytes -advantus SMALL negati ve abnormal Not Available [facility] [address] [facility] [address], [place], [address], 06/08/2022 11:00:44 06/08/19 23 06/08/2022 UA DIP CS STATU S performed by ARIN Penn Not Available [facility] [address] [facility] [address], [place], [address], 06/08/2022 11:00:44 06/08/19 23 06/08/2022 UA DIP CS STATU S total urine volume (mL) 50 /mL ----- ----- ----- ----- ----- ----- ----- ----- ----- ----- ----- ----- ----- ----- ---- *Vladimir alston note the follo wing minim um quant ities for addit ional urine testi ng: - Atypi cals: 3 mL - Cytol ogy: 20 mL - GC/CH : 2 mL - FISH: 30 mL - Atypi cals w/ GC/CH : 5 mL - Cytol ogy PLUS FISH: 50 mL - Urine Cultu re: 3 mL ----- ----- ----- ----- ----- ----- ----- ----- ----- ----- ----- ----- ----- ----- ---- This lab resul t is being provi ded to you and your provi arash at the same time in compl iance with the 21st Centu ry Cures Act. Your provi arash may not have had time to revie w and make recom menda tions based on the kennedi t. Jennifer vásquez allow up to one week for provi arash revie w. Not Available [facility] [address] [facility] [address], [place], [address], 06/08/2022 11:00:44 06/08/19 23 06/08/2022 UA MICRO SCOPI C U-WBC 50 - 100 [hpf] 0 - 2 abnormal Not Available [facility] [address] [facility] [address], [place], [address], 06/08/2022 11:00:47 06/08/19 23 06/08/2022 UA MICRO SCOPI C U-RBC 50 - 100 [hpf] 0 - 2 abnormal Not Available [facility] [address] [facility] [address], [place], [address], 06/08/2022 11:00:47 06/08/19 23 06/08/2022 UA MICRO SCOPI C bacteria Modera te [hpf] negati ve abnormal Not Available [facility] [address] [facility] [address], [place], [address], 06/08/2022 11:00:47 06/08/19 23 06/08/2022 UA MICRO SCOPI C squamous epi Small /lpf negati ve,sma ll This lab resul t is being provi ded to you and your provi arash at the same time in compl iance with the Centu ry Cures Act. Your provi arash may not have had time to revie w and make recom menda tions based on the resul t. Jennifer vásquez allow up to one week for provi arash revie w. Not Available [facility] [address] [facility] [address], [place], [address], 06/08/2022 11:00:47 06/08/19 23 06/08/2022 URINE CULTU RE final report MICROB IOLOGY RESULT S SOURC E Void KNOWN ALLER GIES NKDA TREAT MENT none MEDIA PLATE D AT: Media plate d on 023 @ 12:51 PM COLON Y COUNT 10,00 0 cfu/m l-20, 000 cfu/m l RESUL T Mixed Growt h,Mul tiple Gram Posit pacheco Morph ologi c Types ,No Furth er Jeffrey p This lab resul t is being provi ded to you and your provi arash at the same time in compl iance with the 21st Centu ry Cures Act. Your provi arash may not have had time to revie w and make recom menda tions based on the resul t. Jennifer e allow up to one week for provi arash revie w. Not Available [facility] [address] [facility] [address], [place], [address], 06/10/2022 13:41:16 09/07/19 23 09/06/2022 UA WITHO UT MICRO - CS URISC AN blood - uriscan NEGATI VE negati ve Not Available [facility] [address] [place] [address] [address], [place], [address], 09/06/2022 12:40:06 09/07/19 23 09/06/2022 UA WITHO UT MICRO - CS URISC AN bilirubin - uriscan NEGATI VE mg/dL negati ve Not Available [facility] [address] [place] [address] [address], [place], [address], 09/06/2022 12:40:06 09/07/19 23 09/06/2022 UA WITHO UT MICRO - CS URISC AN urobilinogen - uriscan NORMAL mg/dL normal Not Available [facility] [address] [facility] [address], [place], [address], 09/06/2022 12:40:06 09/07/19 23 09/06/2022 UA WITHO UT MICRO - CS URISC AN ketones - uriscan NEGATI VE mg/dL negati ve Not Available [facility] [address] [place] [address] [address], [place], [address], 09/06/2022 12:40:06 09/07/19 23 09/06/2022 UA WITHO UT MICRO - CS URISC AN protein - uriscan 100 mg/dL negati ve abnormal Not Available [facility] [address] [place] [address] [address], [place], [address], 09/06/2022 12:40:06 09/07/19 23 09/06/2022 UA WITHO UT MICRO - CS URISC AN nitrites - uriscan NEGATI VE negati ve Not Available [facility] [address] [place] [address] [address], [place], [address], 09/06/2022 12:40:06 09/07/19 23 09/06/2022 UA WITHO UT MICRO - CS URISC AN glucose - uriscan NEGATI VE mg/dL negati ve Not Available [facility] [address] [place] [address] [address], [place], [address], 09/06/2022 12:40:06 09/07/19 23 09/06/2022 UA WITHO UT MICRO - CS URISC AN pH - uriscan 6.50 5.00-9 .00 Not Available [facility] [address] [place] [address] [address], [place], [address], 09/06/2022 12:40:06 09/07/19 23 09/06/2022 UA WITHO UT MICRO - CS URISC AN sp. gravity - uriscan 1.03 1.01-1 .03 Not Available [facility] [address] [place] [address] [address], [place], [address], 09/06/2022 12:40:06 09/07/19 23 09/06/2022 UA WITHO UT MICRO - CS URISC AN leukocytes - uriscan NEGATI VE negati ve Not Available [facility] [address] [place] [address] [address], [place], [address], 09/06/2022 12:40:06 09/07/19 23 09/06/2022 UA WITHO UT MICRO - CS URISC AN color - uriscan YELLOW lt. yellow ;yello w Not Available [facility] [address] [place] [address] [address], [place], [address], 09/06/2022 12:40:06 09/07/19 23 09/06/2022 UA WITHO UT MICRO - CS URISC AN clarity - uriscan CLEAR clear Not Available [facility] [address] [place] [address] [address], [place], [address], 09/06/2022 12:40:06 09/07/19 23 09/06/2022 UA WITHO UT MICRO - CS URISC AN total urine volume (mL) 60 /mL ----- ----- ----- ----- ----- ----- ----- ----- ----- ----- ----- ----- ----- ----- ---- *Vladimir alston note the follo wing minim um quant ities for addit ional urine testi ng: - Atypi cals: 3 mL - Cytol ogy: 20 mL - GC/CH : 2 mL - FISH: 30 mL - Atypi cals w/ GC/CH : 5 mL - Cytol ogy PLUS FISH: 50 mL - Urine Cultu re: 3 mL ----- ----- ----- ----- ----- ----- ----- ----- ----- ----- ----- ----- ----- ----- ---- This lab resul t is being provi ded to you and your provi arash at the same time in compl iance with the Centu ry Cures Act. Your provi arash may not have had time to revie w and make recom menda tions based on the resul t. Jennifer vásquez allow up to one week for provi arash revie w. Not Available [facility] [address] [facility] [address], [place], [address], 09/06/2022 12:40:06 03/14/20 23 03/14/2023 UA WITHO UT MICRO - CS URISC AN blood - uriscan NEGATI VE negati ve Not Available [facility] [address] [facility] [address], [place], [address], 03/14/2023 16:30:11 03/14/20 23 03/14/2023 UA WITHO UT MICRO - CS URISC AN bilirubin - uriscan NEGATI VE mg/dL negati ve Not Available [facility] [address] [place] [address] [address], [place], [address], 03/14/2023 16:30:11 03/14/20 23 03/14/2023 UA WITHO UT MICRO - CS URISC AN urobilinogen - uriscan NORMAL mg/dL normal Not Available [facility] [address] [place] [address] [address], [place], [address], 03/14/2023 16:30:11 03/14/20 23 03/14/2023 UA WITHO UT MICRO - CS URISC AN ketones - uriscan NEGATI VE mg/dL negati ve Not Available [facility] [address] [place] [address] [address], [place], [address], 03/14/2023 16:30:11 03/14/20 23 03/14/2023 UA WITHO UT MICRO - CS URISC AN protein - uriscan 10 mg/dL negati ve abnormal Not Available [facility] [address] [place] [address] [address], [place], [address], 03/14/2023 16:30:11 03/14/20 23 03/14/2023 UA WITHO UT MICRO - CS URISC AN nitrites - uriscan NEGATI VE negati ve Not Available [facility] [address] [place] [address] [address], [place], [address], 03/14/2023 16:30:11 03/14/20 23 03/14/2023 UA WITHO UT MICRO - CS URISC AN glucose - uriscan NEGATI VE mg/dL negati ve Not Available [facility] [address] [place] [address] [address], [place], [address], 03/14/2023 16:30:11 03/14/20 23 03/14/2023 UA WITHO UT MICRO - CS URISC AN pH - uriscan 7.50 5.00-9 .00 Not Available [facility] [address] [place] [address] [address], [place], [address], 03/14/2023 16:30:11 03/14/20 23 03/14/2023 UA WITHO UT MICRO - CS URISC AN sp. gravity - uriscan <=1.01 1.01-1 .03 Not Available [facility] [address] [place] [address] [address], [place], [address], 03/14/2023 16:30:11 03/14/20 23 03/14/2023 UA WITHO UT MICRO - CS URISC AN leukocytes - uriscan NEGATI VE negati ve Not Available [facility] [address] [place] [address] [address], [place], [address], 03/14/2023 16:30:11 03/14/20 23 03/14/2023 UA WITHO UT MICRO - CS URISC AN color - uriscan YELLOW lt. yellow ;yello w Not Available [facility] [address] [place] [address], [place], [address], 03/14/2023 16:30:11 03/14/20 23 03/14/2023 UA WITHO UT MICRO - CS URISC AN clarity - uriscan CLEAR clear Not Available [facility] [address] [place] [address] [address], [place], [address], 03/14/2023 16:30:11 03/14/20 23 03/14/2023 UA WITHO UT MICRO - CS URISC AN total urine volume (mL) 100 /mL ----- ----- ----- ----- ----- ----- ----- ----- ----- ----- ----- ----- ----- ----- ---- *Plea se note the follo wing minim um quant ities for addit ional urine testi ng: - Atypi cals: 3 mL - Cytol ogy: 20 mL - GC/CH : 2 mL - FISH: 30 mL - Atypi cals w/ GC/CH : 5 mL - Cytol ogy PLUS FISH: 50 mL - Urine Cultu re: 3 mL ----- ----- ----- ----- ----- ----- ----- ----- ----- ----- ----- ----- ----- ----- ---- This lab resul t is being provi ded to you and your provi arash at the same time in compl iance with the Centu ry Cures Act. Your provi arash may not have had time to revie w and make recom menda tions based on the resul t. Jennifer vásquez allow up to one week for provi arash revie w. Not Available [facility] [address] [place] [address] [address], [place], [address], 03/14/2023 16:30:11 Result Notes None recorded. Problems Name Problem SNOMED Code Status Onset Date Resolution Date Notes Provider Name and Address Organization Details Recorded Time Lower urinary tract symptoms due to benign prostatic hypertrophy 7365258017111 1 Active 2021 Lencho Walsh MD [address] [place] [address],[place] [address] [place] [address], [phone], [facility] 15:39:41 Slowing of urinary stream [id number] Active 2021 Lencho Walsh MD [address] [place] [address],[place] [address] [place] [address], [phone], [facility] 2 15:39:42 Problem Notes None recorded. Procedures Surgical History Date Name Laterality Status Provider Name and Address Organization Details Recorded Time 023 Bladder Scan completed Nettie Mattson [facility] 03/14/2023 16:08:50 023 Bladder Scan completed Steven Kaur [facility] 09/06/2022 12:20:05 023 Bladder Scan completed Reina Silva [facility] 06/08/2022 10:49:12 Urine Culture completed Yuko Aguilareve [facility] 04/28/2022 11:40:57 Urinalysis completed Yuko Diana [facility] 04/28/2022 11:40:55 Diagnostic sigmoidoscopy completed Not Available Health Note 06/04/2022 16:15:21 Cystoscopy- male completed Lencho Walsh MD [address], [place], [address], [facility] 03/16/2022 15:39:19 022 Bladder Scan completed Nora Ferraro [facility] 03/16/2022 15:22:50 Bladder Scan completed Latha Stratton [facility] 02/14/2022 14:24:[address] colonography screening completed Not Available Health Note 09/04/2022 19:27:03 011 Colonoscopy completed Not Available Health Note 06/04/2022 16:15:21 Diagnostic colonoscopy completed Not Available Health Note 06/04/2022 16:15:[address] gastr adj device completed Not Available Health Note 06/04/2022 16:15:21 Cystourethroscopy completed Not Available Health Note 06/04/2022 16:15:21 Hernia repair w/mesh completed Not Available Health Note 06/04/2022 16:15:21 Fragmenting of kidney stone completed Not Available Health Note 06/04/2022 16:15:21 Prostatectomy (turp) completed Not Available Health Note 06/04/2022 16:15:21 Removal of sperm duct(s) completed Not Available Health Note 06/04/2022 16:15:21 Imaging Results None recorded. Procedure Notes None recorded. Medical Equipment None Reported. Allergies No known drug allergies Medications Name Sig Start Date Stop Date Status Note LastModified by Organization Details LastModified Time atorvasta tin 40 mg tablet Take 1 Tablet (40mg) by mouth once daily.* active Not Available Not Available No t Available potassium chloride ER 10 mEq capsule,e xtended release TAKE TWO CAPSULES BY MOUTH DAILY 06/08 completed HN: Patient reports no longer taking Not Available Not Available Not Available amiloride 5 mg-hydroc hlorothia zide 50 mg tablet TAKE ONE TABLET BY MOUTH ONE TIME DAILY 02/14 completed Not Available Not Available Not Available loperamid e 2 mg capsule TAKE ONE CAPSULE BY MOUTH TWICE DAILY NEEDED* active Not Available Not Available No t Available metoprolo l succinate ER 50 mg tablet,ex tended release 24 hr TAKE ONE TABLET BY MOUTH ONE TIME DAILY* active Not Available Not Available No t Available citalopra m 10 mg tablet TAKE ONE TABLET BY MOUTH EVERY DAY IN THE MORNING. * active Not Available Not Available No t Available sucralfat e 1 gram tablet TAKE ONE TABLET BY MOUTH FOUR TIMES DAILY BEFORE MEALS And at bedtime* active Not Available Not Available No t Available torsemide 10 mg tablet TAKE ONE TABLET BY MOUTH ONE TIME DAILY 06/08 completed HN: Patient reports no longer taking Not Available Not Available Not Available clopidogr el 75 mg tablet TAKE ONE TABLET BY MOUTH ONE TIME DAILY* active Not Available Not Available No t Available amlodipin e 5 mg tablet TAKE ONE TABLET BY MOUTH ONE TIME DAILY* active Not Available Not Available No t Available sulfameth oxazole 800 mg-trimet hoprim 160 mg tablet TAKE ONE TABLET BY MOUTH TWICE DAILY FOR 14 DAYS 02/14 completed Not Available Not Available Not Available spironola ctone 25 mg tablet TAKE ONE TABLET BY MOUTH ONE TIME DAILY* active Not Available Not Available No t Available magnesium oxide 400 mg (241.3 mg magnesium ) tablet Take 1 Tablet (400 mg) by mouth four times daily.* active Not Available Not Available No t Available tamsulosi n 0.4 mg capsule TAKE ONE CAPSULE BY MOUTH DAILY AFTER A MEAL 06/08 completed HN: Patient reports no longer taking Not Available Not Available Not Available torsemide 5 mg tablet Take 1 Tablet (5 mg) by mouth once daily.* active Not Available Not Available No t Available doxycycli ne monohydra te 100 mg capsule TAKE ONE CAPSULE BY MOUTH TWICE DAILY FOR 7 DAYS 06/08 completed HN: Patient reports no longer taking Not Available Not Available Not Available pantopraz ole 40 mg tablet,de layed release TAKE ONE TABLET BY MOUTH ONE TIME DAILY* active Not Available Not Available No t Available metformin 1,000 mg tablet TAKE ONE TABLET BY MOUTH TWICE A DAY WITH MEALS* active Not Available Not Available No t Available lisinopri l 10 mg tablet TAKE TWO TABLETS BY MOUTH DAILY* active Not Available Not Available No t Available lisinopri l 5 mg tablet TAKE ONE TABLET BY MOUTH ONE TIME DAILY 02/14 completed Not Available Not Available Not Available oxycodone 5 mg tablet active Not Available Not Available Not Available Vitamin D3 1000iu 1/day active Not Available Not Available No t Available GaviLyte- G 236 gram-22.7 4 gram-6.74 gram-5.86 gram oral solution Drink 3 liters the day before colonosc opy and drink 1 liter 6 hours before colonosc opy 02/14 completed Not Available Not Available Not Available Eliquis 5 mg tablet TAKE ONE TABLET BY MOUTH TWICE DAILY 03/16 completed Not Available Not Available Not Available potassium chloride ER 20 mEq tablet,ex tended release TAKE ONE TABLET BY MOUTH TWICE A DAY WITH MEALS* active Not Available Not Available No t Available Vitals Date Recorded Body height Provider Name an d Address Organization Details Last Updated DateTime 03/16/2022 172.72 cm Nora Ferraro [facility] 03/16/2022 15:13:18 Date Recorded Body height Body weight Body mass index (BMI) Provider Name and Address Organization Details Last Updated DateTime 06/08/2022 172.72 cm 360352.3223 88737 g 44.1 kg/m2 Not Available Health Note 06/08/2022 10:23:29 Date Recorded Body weight Body mass index (BMI) Body height Provider Name and Address Organization Details Last Updated DateTime 09/06/2022 052569.1826 52183 g 44.3 kg/m2 170.18 cm Not Available Health Note 09/06/2022 11:49:21 Date Recorded Body height Body mass index (BMI) Body weight Provider Name and Address Organization Details Last Updated DateTime 03/14/2023 170.18 cm 44.3 kg/m2 664692.64 g Nettie Mattson [facility] 03/14/2023 15:59:50 Social History Question Answer Notes LastModified by Organizat ion Details LastModified Time Tobacco Smoking Status Former Smoker Not Available Health Note 03/13/2023 16:31:32 What Is Your Level Of Alcohol Consumption? Occasional [email or web address] Information not available 03/13/2023 What Is Your Level Of Caffeine Consumption? Moderate [email or web address] Information not available 03/13/2023 How Much Tobacco Do You Chew? None [email or web address] Information not available 03/13/2023 Do You Or Have You Ever Used E-cigarettes Or Vape? Never Used Electronic Cigarettes [email or web address] Information not available 03/13/2023 When Did You Quit Smoking? 16+ Years Since Last Cigarette [email or web address] Information not available 03/13/2023 What Was The Date Of Your Most Recent Tobacco Screening? 03/14/2023 [email or web address] Information not available 03/13/2023 What Is Your Relationship Status? [email or web address] Information not available 09/04/2022 Are You Sexually Active? No [email or web address] Information not available 03/13/2023 Do You Or Have You Ever Used Smokeless Tobacco? Never Used Smokeless Tobacco [email or web address] Information not available 03/13/2023 Do You Use Any Illicit Or Recreational Drugs? No [email or web address] Information not available 03/13/2023 Has Tobacco Cessation Counseling Been Provided? No Information not available 06/08/2022 How Many Years Have You Smoked Tobacco? 32 [email or web address] Information not available 03/13/2023 Do You Or Have You Ever Used Any Other Forms Of Tobacco Or Nicotine? No [email or web address] Information not available 03/14/2023 How Many Days In The Past Year Have You Consumed 5 Or More Drinks? 0 [email or web address] Information no t available 03/13/2023 Sex: Unknown Functional Status None recorded. Mental Status None recorded. Family History Relationship Description Onset Age of this Age Resolved Age Notes LastModified by Organization Details LastModified Time Father Family history of cancer of colon [email or web address] Not available 02/14 14:01:42 Mother Family history of Hypertension [email or web address] Not available 14:01:52 Medical History Condition Response Sexually Transmitted Infection N Diabetes N Other N Bleeding Disorder N High Blood Pressure Y Kidney Stones N High Cholesterol N GERD/Acid Reflux N Heart Disease N Cancer N Lung Disease N Depression N Immunizations Vaccine Type Date Status Note Provider Nam e and Address Organization Details Recorded Time Influenza, high-dose, trivalent, PF 6 completed MARIELOS Linares [facility] 03/16/2022 15:13:26 Influenza, split virus, trivalent, preservative 9 completed Nora santoyo, [facility] 03/16/2022 15:13:26 pneumococcal polysaccharide PPV23 7 completed Nora santoyo, [facility] 03/16/2022 15:13:26 Influenza, high-dose, trivalent, PF 5 completed Nora santoyo, [facility] 03/16/2022 15:13:26 Influenza, adjuvanted, trivalent, PF 8 completed Nora santoyo, [facility] 03/16/2022 15:13:26 zoster live 2 completed Nora santoyo, [facility] 03/16/2022 15:13:26 Influenza, split virus, trivalent, preservative 1 completed Nora santoyo, [facility] 03/16/2022 15:13:26 COVID-19, mRNA, LNP-S, PF, 100 mcg/0.5mL dose or 50 mcg/0.25mL dose 2 completed Nora santoyo, [facility] 03/16/2022 15:13:26 Novel [id number], all formulations 9 completed Nora santoyo, [facility] 03/16/2022 15:13:26 Influenza, split virus, trivalent, preservative 3 completed Nora santoyo, [facility] 03/16/2022 15:13:26 Influenza, split virus, trivalent, preservative 8 completed Nora santoyo, [facility] 03/16/2022 15:13:26 Influenza, split virus, trivalent, preservative 7 completed Nora santoyo, [facility] 03/16/2022 15:13:26 Tdap 7 completed Nora santoyo, [facility] 03/16/2022 15:13:26 influenza, unspecified formulation 7 completed Nora santoyo, [facility] 03/16/2022 15:13:26 COVID-19, mRNA, LNP-S, PF, 100 mcg/0.5mL dose or 50 mcg/0.25mL dose 1 completed Nora santoyo, [facility] 03/16/2022 15:13:26 COVID-19, mRNA, LNP-S, bivalent, PF, 50 mcg/0.5 mL or 25mcg/0.25 mL dose 2 completed Nora santoyo, [facility] 03/16/2022 15:13:26 pneumococcal polysaccharide PPV23 8 completed Nora santoyo, [facility] 03/16/2022 15:13:26 COVID-19, mRNA, LNP-S, PF, 100 mcg/0.5mL dose or 50 mcg/0.25mL dose 1 completed Nora santoyo, [facility] 03/16/2022 15:13:26 Influenza, split virus, trivalent, preservative 2 completed Nora santoyo, [facility] 03/16/2022 15:13:26 Influenza, adjuvanted, quadrivalent, PF 2 completed Nora santoyo, [facility] 03/16/2022 15:13:26 Influenza, high-dose, quadrivalent, PF 1 completed Nora santoyo, [facility] 03/16/2022 15:13:26 Influenza, high-dose, trivalent, PF 8 [facility] 03/16/[facility] 15:13:26 Influenza, adjuvanted, trivalent, PF 0 completed Nora santoyo, [facility] 03/16/2022 15:13:26 Td (adult), 2 Lf tetanus toxoid, preservative free, adsorbed 7 completed Nora santoyo, [facility] 03/16/2022 15:13:26 [facility] 15:13:26 Influenza, adjuvanted, trivalent, PF 9 [facility] 15:13:27 COVID-19, mRNA, LNP-S, PF, 100 mcg/0.5mL dose or 50 mcg/0.25mL dose 1 [facility] 15:13:27 Influenza, high-dose, trivalent, PF 7 completed Nora Ferraro null, [facility] 03/16/2022 15:13:27 Influenza, split virus, trivalent, preservative 0 completed Nora santoyo, [facility] 03/16/2022 15:13:27 Influenza, split virus, trivalent, preservative 6 [facility] 15:13:27 SARS-COV-2 (COVID-19) vaccine, UNSPECIFIED 2 completed Not Available [facility] 06/08/2022 10:23:54 influenza, unspecified formulation 2 completed Not Available [facility] 06/08/2022 10:23:54 pneumococcal, unspecified formulation 0 completed Not Available [facility] 06/08/2022 10:23:54 influenza, unspecified formulation 2 completed Not Available Health Note 09/04/2022 19:27:07 Pneumococcal conjugate PCV 13 2 completed Not Available Health Note 09/04/2022 19:27:07 SARS-COV-2 (COVID-19) vaccine, UNSPECIFIED 3 completed Not Available Health Note 09/04/2022 19:27:07 SARS-COV-2 (COVID-19) vaccine, UNSPECIFIED 3 completed Not Available Health Note 03/13/2023 16:31:37 influenza, unspecified formulation 3 completed Not Available Health Note 03/13/2023 16:31:37 pneumococcal, unspecified formulation 3 completed Not Available Health Note 03/13/2023 16:31:37 Past Encounters Encounter ID Performer Location Encounter Start Date Encounter Closed Date Diagnosis/Indication Diagnosis SNOMED-CT Code Diagnosis ICD10 Code Diagnosis Note [id number] [facility] [address] 02/14/2022 13:32:03 02/14/2022 15:18:20 Lower urinary tract symptoms due to benign prostatic hypertrophy 5835929656 9101 N40.1 Kidney stone 67698182 N2 0.0 [id number] [facility] [address] [address] 03/16/2022 15:08:18 03/16/2022 15:53:06 Lower urinary tract symptoms due to benign prostatic hypertrophy [id number] 9101 N40.1 Slowing of urinary stream 04467731 R39.12 [id number] Yuko Ortiz [address] [address] 04/28/2022 11:23:48 04/28/2022 12:09:09 Lower urinary tract symptoms due to benign prostatic hypertrophy [id number] 9101 N40.1 [id number] MD Curt SommerAmado [address] [address] 06/08/2022 10:20:51 06/08/2022 11:55:56 Lower urinary tract symptoms due to benign prostatic hypertrophy 9074492723 9101 N40.1 Slowing of urinary stream 11509613 R39.12 [id number] MD Susanna Sommer [address] [place] [address] 09/06/2022 11:48:25 09/06/2022 12:45:34 Lower urinary tract symptoms due to benign prostatic hypertrophy 3158111458 9101 N40.1 Slowing of urinary stream 63123368 R39.12 [id number] MD Susanna Sommer [address] [place] [address] 03/14/2023 15:56:05 03/14/2023 16:19:52 Lower urinary tract symptoms due to benign prostatic hypertrophy 1029363641 9101 N40.1 Slowing of urinary stream 12809262 R39.12 Health Concerns Section Related Observation LastModified by Organization Detai ls LastModified Time None Recorded Concern Status LastModified by Organization Details LastModified Time None Recorded Advance Directives Directive None Recorded Payers Encounter Date Sequence Insurance Name Policy Number Policy Zaragoza Covered Member ID Zaragoza Member ID Guarantor Name 03/16/2022 1 [place] [id number] Sulaiman Mendiola Aldahl [id number] Sulaiman Mendiola Aldahl 04/28/2022 1 [place] [id number] Sulaiman Mendiola Aldahl [id number] Sulaiman Mendiola Aldahl 06/08/2022 1 [place] [id number] Sulaiman Mendiola Aldahl [id number] Sulaiman Mendiola Aldahl 09/06/2022 1 [place] [id number] Sulaiman Torresahl [id number] Sulaiman Mendiola Aldahl 03/14/2023 1 [place] [id number] Sulaiman Torresahl [id number] Sulaiman Mendiola Aldahl Notes Date Note Type Note Provider Name and Address Organization Details Recorded Time 03/16/2022 text/html Per visit with RICO Kruger om on 02/14/22:Patient is a 72-year-old male that presents today for UTI, BPH, kidney stones. Patient had a hospitalization at [facility] from 01/10-01/12. Patient was thought to be septic from a UTI, he was treated with a 14-day course of Bactrim. UC from hospital grew 50-100,000 with multiple bacterial growth. Prior to admission, patient was not on tamsulosin, however this was restarted while in the hospital. CT revealed non-obstructing renal stones. It appears patient was on tamsulosin prior to admission. UC from hospital grew 50-100,000 with multiple bacterial growth. Patient notes LUTS at baseline, specifically nocturia, incomplete emptying, frequent urination and weak stream. Patient has never had a BPH procedure. Patient does have a long history of kidney stones, was last seen by Dr. Adam at [facility] in 2017, has not followed up since. He has history of R ESWL in January 2009, L PCNL in May 2013 and cystolitholapaxy in May 2016. Stone analysis from bladder stone was 50% calcium phosphate, 30% struvite.He does have a history of colectomy in 1988, gastric sleeve procedure in 2010. He is not currently on any medications for kidney stone prevention. 03/16/22: DM, HTN, melanoma, PREETI, HLD, morbid obesity, kidney stones, aortic stenosis, CAD, pituitary adenoma, CHF, GERD, s/p cardioversion.IPSS = 24. PVR = 60 mL. He's here for his voiding concerns. He's having frequency. Has some urgency as well with weekly drip urge incontinence. No straining but has to wait to start at times. Force of stream moderate. He feels that he empties his bladder. Nocturia 2x/night. No dysuria. No gross hematuria. No history of prostate procedures. He's on Flomax. He's no on any blood thinners anymore. Lencho Walsh MD [address] [place] [address],[address], [place], [address] 03/16/2022 15:52:09 06/08/2022 text/html Per visit with RICO Kruger om on 02/14/22:Patient is a 72-year-old male that presents today for UTI, BPH, kidney stones. Patient had a hospitalization at [facility] from 01/10-01/12. Patient was thought to be septic from a UTI, he was treated with a 14-day course of Bactrim. UC from hospital grew 50-100,000 with multiple bacterial growth. Prior to admission, patient was not on tamsulosin, however this was restarted while in the hospital. CT revealed non-obstructing renal stones. It appears patient was on tamsulosin prior to admission. UC from hospital grew 50-100,000 with multiple bacterial growth. Patient notes LUTS at baseline, specifically nocturia, incomplete emptying, frequent urination and weak stream. Patient has never had a BPH procedure. Patient does have a long history of kidney stones, was last seen by Dr. Adam at [facility] in 2016, has not followed up since. He has history of R ESWL in January 2009, L PCNL in May 2013 and cystolitholapaxy in May 2016. Stone analysis from bladder stone was 50% calcium phosphate, 30% struvite.He does have a history of colectomy in 1988, gastric sleeve procedure in 2010. He is not currently on any medications for kidney stone prevention. 03/16/22: DM, HTN, melanoma, PREETI, HLD, morbid obesity, kidney stones, aortic stenosis, CAD, pituitary adenoma, CHF, GERD, s/p cardioversion.IPSS = 24. PVR = 60 mL. He's here for his voiding concerns. He's having frequency. Has some urgency as well with weekly drip urge incontinence. No straining but has to wait to start at times. Force of stream moderate. He feels that he empties his bladder. Nocturia 2x/night. No dysuria. No gross hematuria. No history of prostate procedures. He's on Flomax. He's no on any blood thinners anymore. 06/08/22: S/p bipolar TURP (large ball valve median lobe) 05/09/22 -> pathology = 55 grams, no cancer. Discharged home after passing a voiding trial on 05/13/22.Here for follow up. PVR = 0 mL. IPSS = 11. He's voiding better since the TURP. He does have some urgency. When I pee it shoots out like a rocket. Nocturia 0-1x/night. No dysuria. No fevers or chills. He is having some pink urine at times. He's having some frequency but that's improving. Lencho Walsh MD [address], [place], [address], [facility] 06/08/2022 10:54:16 09/06/2022 text/html Per visit with RICO Kruger om on 02/14/22:Patient is a 72-year-old male that presents today for UTI, BPH, kidney stones. Patient had a hospitalization at [facility] from 01/10-01/12. Patient was thought to be septic from a UTI, he was treated with a 14-day course of Bactrim. UC from hospital grew 50-100,000 with multiple bacterial growth. Prior to admission, patient was not on tamsulosin, however this was restarted while in the hospital. CT revealed non-obstructing renal stones. It appears patient was on tamsulosin prior to admission. UC from hospital grew 50-100,000 with multiple bacterial growth. Patient notes LUTS at baseline, specifically nocturia, incomplete emptying, frequent urination and weak stream. Patient has never had a BPH procedure. Patient does have a long history of kidney stones, was last seen by Dr. Adam at [facility] in 2016, has not followed up since. He has history of R ESWL in January 2009, L PCNL in May 2013 and cystolitholapaxy in May 2016. Stone analysis from bladder stone was 50% calcium phosphate, 30% struvite.He does have a history of colectomy in 1988, gastric sleeve procedure in 2010. He is not currently on any medications for kidney stone prevention. 03/16/22: DM, HTN, melanoma, PREETI, HLD, morbid obesity, kidney stones, aortic stenosis, CAD, pituitary adenoma, CHF, GERD, s/p cardioversion.IPSS = 24. PVR = 60 mL. He's here for his voiding concerns. He's having frequency. Has some urgency as well with weekly drip urge incontinence. No straining but has to wait to start at times. Force of stream moderate. He feels that he empties his bladder. Nocturia 2x/night. No dysuria. No gross hematuria. No history of prostate procedures. He's on Flomax. He's no on any blood thinners anymore. 06/08/22: S/p bipolar TURP (large ball valve median lobe) 05/09/22 -> pathology = 55 grams, no cancer. Discharged home after passing a voiding trial on 05/13/22.Here for follow up. PVR = 0 mL. IPSS = 11. He's voiding better since the TURP. He does have some urgency. When I pee it shoots out like a rocket. Nocturia 0-1x/night. No dysuria. No fevers or chills. He is having some pink urine at times. He's having some frequency but that's improving. 09/06/22: Here for follow up. IPSS = 5. PVR = 0 mL. Since the last visit, he's doing well. His stream is good. He's emptying his bladder. He does have some urgency but can get to the bathroom. He describes that he is constipated. He also takes a diuretic. Lencho Walsh MD [address], [place], [address], [facility] 09/06/2022 12:34:28 03/14/2023 text/html Per visit with RICO Kruger om on 02/14/22:Patient is a 72-year-old male that presents today for UTI, BPH, kidney stones. Patient had a hospitalization at [facility] from 01/10-01/12. Patient was thought to be septic from a UTI, he was treated with a 14-day course of Bactrim. UC from hospital grew 50-100,000 with multiple bacterial growth. Prior to admission, patient was not on tamsulosin, however this was restarted while in the hospital. CT revealed non-obstructing renal stones. It appears patient was on tamsulosin prior to admission. UC from hospital grew 50-100,000 with multiple bacterial growth. Patient notes LUTS at baseline, specifically nocturia, incomplete emptying, frequent urination and weak stream. Patient has never had a BPH procedure. Patient does have a long history of kidney stones, was last seen by Dr. Adam at [facility] in 2016, has not followed up since. He has history of R ESWL in January 2009, L PCNL in May 2013 and cystolitholapaxy in May 2016. Stone analysis from bladder stone was 50% calcium phosphate, 30% struvite.He does have a history of colectomy in 1988, gastric sleeve procedure in 2010. He is not currently on any medications for kidney stone prevention. 03/16/22: DM, HTN, melanoma, PREETI, HLD, morbid obesity, kidney stones, aortic stenosis, CAD, pituitary adenoma, CHF, GERD, s/p cardioversion.IPSS = 24. PVR = 60 mL. He's here for his voiding concerns. He's having frequency. Has some urgency as well with weekly drip urge incontinence. No straining but has to wait to start at times. Force of stream moderate. He feels that he empties his bladder. Nocturia 2x/night. No dysuria. No gross hematuria. No history of prostate procedures. He's on Flomax. He's no on any blood thinners anymore. 06/08/22: S/p bipolar TURP (large ball valve median lobe) 05/09/22 -> pathology = 55 grams, no cancer. Discharged home after passing a voiding trial on 05/13/22.Here for follow up. PVR = 0 mL. IPSS = 11. He's voiding better since the TURP. He does have some urgency. When I pee it shoots out like a rocket. Nocturia 0-1x/night. No dysuria. No fevers or chills. He is having some pink urine at times. He's having some frequency but that's improving. 09/06/22: Here for follow up. IPSS = 5. PVR = 0 mL. Since the last visit, he's doing well. His stream is good. He's emptying his bladder. He does have some urgency but can get to the bathroom. He describes that he is constipated. He also takes a diuretic. 03/14/23: Plan at last visit was for 6 month follow up with a PSA. Cr 01/16/23 = 0.78 (GFR >60). PSA 10/23/22 = <0.1 ng/mL.PVR = 0 mL. IPSS = 3. He's voiding well and he has a strong stream. No dysuria. No gross hematuria. Has frequency when he takes his torsemide. Lencho Walsh MD [address], [place], [address], [facility] 03/14/2023 16:16:48
--- OUTSIDE RECORDS SUMMARY | 2024-07-05 14:04 | XMS_ITS | Clinical Summary ---
Author Organization [facility] Address [address] [place] [address]. [place] [address] Care Team Providers Care Registration Specialist Name Role Phone Milagros Jose Veloz Primary Care Provider [phone] Allergies Active Allergy Reactions Criticality Noted Date Comments Nsaids Other (See Comments) 05/08/2022 Pt had bariatric surgery, should not ever take NSAIDS Medications atorvastatin (LIPITOR) 40 MG tablet Take 40 mg by mouth every evening Active metFORMIN (GLUCOPHAGE) 1000 MG tablet Take 1,000 mg by mouth 2 times daily (with meals) Active metoprolol succinate ER (TOPROL XL) 50 MG 24 hr tablet Take 50 mg by mouth daily Active acetaminophen (TYLENOL) 325 MG tabletIndicatio ns:Soft tissue infection,Denta l infection Take 2 tablets (650 mg) by [...] Recorded Sex Assigned at Not on file Legal Sex Male 5:05 AM TELEVISION INSTALLER HELPER Gender Identity Not on file Sexual Orientation Not on file Last Filed Vital Signs Vital Sign Reading Time Taken Comments Blood Pressure 130/60 05/13/2022 3:23 PM TELEVISION INSTALLER HELPER Pulse 76 05/13/2022 3:23 PM TELEVISION INSTALLER HELPER Temperature 37.2 C (98.9 F) 05/13/2022 3:23 PM TELEVISION INSTALLER HELPER Respiratory Rate 18 05/13/2022 3:23 PM TELEVISION INSTALLER HELPER Oxygen Saturation 91% 05/13/2022 3:23 PM TELEVISION INSTALLER HELPER Inhaled Oxygen Concentration - - Weight 132.3 kg (291 lb 11.2 oz) 05/09/2022 5:50 AM TELEVISION INSTALLER HELPER scale Height 167.6 cm (5' 6) 05/09/2022 5:50 AM TELEVISION INSTALLER HELPER s tated Body Mass Index 47.08 05/09/2022 5:50 AM TELEVISION INSTALLER HELPER Plan of Treatment Health Maintenance Due Date [...] 2015 MEDICARE ANNUAL WELLNESS VISIT 07/20/2022 07/20/2021 COVID-19 Vaccine ( season) 2023 01/19/2022, 08/26/2021, 02/20/2021, Additional history exists INFLUENZA VACCINE (#1) 2023 , 01/16/2021, 01/28/2020, Additional history exists PHQ-2 (once per calendar year) 2024 GLUCOSE 05/13/2025 05/13/2022, 04/30, 05/13/2022, Additional history exists DTAP/TDAP/TD IMMUNIZATION (3 - Td or Tdap) 07/25/2026 07/25/2016, 07/27/2006, 01/25/1995 COLONOSCOPY 04/04/2032 04/04/2022, 04/03/2022 COLORECTAL CANCER SCREENING 04/04/2032 Pneumococcal Vaccine: 50+ Years Completed 08/23/2017, 02/14/2016, 07/27/2006 HPV IMMUNIZATION Aged Out No longer e ligible based on patient's age to complete this topic MENINGITIS IMMUNIZATION Aged Out No l onger eligible based on patient's age to complete this topic Procedures Procedure Name Priority Date/Time Associated Diagnosis Comments GLUCOSE BY METER Routine 05/13/2022 7:57 AM TELEVISION INSTALLER HELPER from Last 3 Months or Most Recently Relevant to Health Maintenance Results * (ABNORMAL) Glucose by meter (05/13/2022 7:57 AM TELEVISION INSTALLER HELPER) GLUCOSE BY METER POCT 111(H) 70 - 99 mg/dL 05/13/2022 8:05 AM TELEVISION INSTALLER HELPER [facility] POCT RESULTS Blood, Capillary BLOOD SPECIMEN / Unknown 05/13/2022 7:57 AM TELEVISION INSTALLER HELPER 05/13/2022 8:05 AM TELEVISION INSTALLER HELPER us Lencho Walsh MD LAB - BEAKER POCT Final Re sult [facility] POCT RESULTS [address] [place] [address] from Last 3 Months or Most Recently Relevant to Health Maintenance Insurance MEDICARE [facility] MEDICARE ADVANTAGE [place] [id number] Advance Directives For more information, please contact: [phone] * Full Code (Latest Code Status on File) Date Activated Date Inactivated Comments 05/09/2022 2:52 PM 05/13/2022 9:01 PM All basic an d advanced life-sustaining interventions are performed as appropriate Question Answer Comments Code status determined by: Discussion with shortye nt/ legal decision maker * Full Code Date Activated Date Inactivated Comments 02/06/2016 1:05 PM 05/09/2022 5:40 AM * Full Code Date Activated Date Inactivated Comments 02/02/2016 9:17 PM 02/06/2016 1:05 PM Care Teams Registration Specialist Relationship Specialty Start Date End Date Jose Linares: [phone] PCP - General Family Practice 02/02/16
--- OUTSIDE RECORDS SUMMARY | 2024-07-05 14:04 | XMS_ITS | Clinical Summary ---
Author Organization [facility] Address [address] [place] [address] Care Team Providers Care Digital Media Buyer Name Role Phone Jose Linares MD Primary Care Provider + Allergies Active Allergy Reactions Criticality Noted Date Comments Nsaids (Non-Steroidal Anti-Inflammatory Drug) Other - Describe In Comment Field 04/14/2011 Patient had bariatric surgery. Should not take oral NSAID's ever. Medications blood-glucose meterIndication s:Type II or unspecified type diabetes mellitus without mention of complication, not stated as uncontrolled Dispense glucose meter, test strips and lancets covered by the patient insurance. Test 3 times per day. 1 Device 0 013 Active acetaminophen (TYLENOL EXTRA STRGTH) 500 mg tablet Take 1,000 mg by mouth every 6 hours if needed. Max acetaminophen dose: 4000mg in 24 hrs. Active cholecalciferol (VITAMIN D3) 1,000 unit tablet Take 1,000 Units by mouth once daily. Active lancets (ACCU-CHEK FASTCLIX LANCING DEV)Indications :Diabetes mellitus without complication (HC) Test 3 times per day. 102 Each 6 019 Active blood sugar diagnostic (True Metrix Glucose Test Strip) stripIndication s:Diabetes mellitus type 2, insulin dependent (HC) Dispense item covered by pt ins. E11.9 IDDM type II - Test 2 times/day. 300 Each 3 021 Active guaiFENesin (MUCINEX) 600 mg Extended-Releas e tablet Take 1 Tablet (600 mg) by mouth 2 times daily if needed for Expectoration. 0 022 Active loperamide (IMODIUM) 2 mg capsule TAKE ONE CAPSULE BY MOUTH TWICE DAILY NEEDED* 023 Active aspirin chewable 81 mg chewable tabletIndicatio ns:Coronary artery disease, unspecified vessel or lesion type, unspecified whether angina present, unspecified whether [place] or transplanted heart Chew 1 Tablet (81 mg) by mouth once daily with a meal. 0 023 Active ferrous sulfate, 65 mg elemental, tabletIndicatio ns:Anemia due to acute blood loss Take 1 Tablet (325 mg) by mouth once daily with a meal. 100 Tablet 3 023 Active atorvastatin (LIPITOR) 40 mg tabletIndicatio ns:ASHD (arteriosclerot ic heart disease) Take 1 Tablet (40 mg) by mouth once daily. 90 Tablet 3 024 Active metFORMIN (GLUCOPHAGE) 1,000 mg tabletIndicatio ns:Diabetes mellitus without complication (HC) TAKE ONE TABLET (1000MG) TWICE DAILY WITH MEALS 180 Tablet 3 024 Active metoprolol succinate (TOPROL XL) 50 mg sustained-relea se tabletIndicatio ns:Hypertension , unspecified type Take 1 Tablet (50 mg) by mouth once daily. 90 Tablet 3 024 Active magnesium glycinate 100 mg magnesium capIndications: Hypomagnesemia Take 1 Capsule by mouth once daily. 024 Active Simethicone (Gas-X) 125 mg capsuleIndicati ons:Chronic GERD Take 1 Capsule (125 mg) by mouth 4 times daily if needed for Flatulence. Max dose: 500 mg per 24 hrs 024 Active amLODIPine (NORVASC) 5 mg tabletIndicatio ns:Aortic valve insufficiency, etiology of cardiac valve disease unspecified Take 1 Tablet (5 mg) by mouth once daily. 90 Tablet 3 024 Active lisinopriL (PRINIVIL; ZESTRIL) 10 mg tabletIndicatio ns:Essential hypertension Take 2 Tablets (20 mg) by mouth once daily. 180 Tablet 3 024 Active spironolactone (ALDACTONE) 25 mg tabletIndicatio ns:Hypertension Take 1 Tablet (25 mg) by mouth once daily. 90 Tablet 3 024 Active torsemide (DEMADEX) 5 mg tabletIndicatio ns:HTN (hypertension) Take 1 Tablet (5 mg) by mouth once daily. 90 Tablet 3 024 Active pantoprazole (PROTONIX) 40 mg delayed-release tabletIndicatio ns:Chronic GERD TAKE ONE TABLET BY MOUTH ONE TIME DAILY 90 Tablet 2 024 Active citalopram (CELEXA) 10 mg tabletIndicatio ns:Depression, recurrent Take 1 Tablet (10 mg) by mouth every morning. 90 Tablet 1 025 Active citalopram (CELEXA) 10 mg tabletIndicatio ns:Depression, recurrent Take 1 Tablet (10 mg) by mouth every morning. 90 Tablet 3 024 2024 Discontinued Active Problems Problem Noted Date Diagnosed Date [...] - acute 06/02/2013 Overview (06/03/2013): Required phenylephrine (Neosynephrine ) for a short time in post-anesthesia care [...] with preserved ejection fraction, unspecified HF chronicity 02/13/2022 02/2 11/2022 Pituitary adenoma with extrasellar extension 7 06/27/2022 [...] Encounters Date Type Department Care Team Description 06/26/2024 Refill [facility] [address] [place] [address] Jose Linares MD Refill Request (Citalopram) 04/15/2024 Refill [facility] [address] [place] [address] Jose Linares MD Refill Request (Pantoprazole) from Last 3 Months Immunizations Immunization Administration Dates Next Due AMB Influenza, IIV3 (Age >=3 years)(Flu Clinic Only) 02/26/2013 COVID-19 vaccine (Moderna 100mcg/0.5mL) PF, MDV 10/28/2021,08/26/2021,02/20/2021,07/27,06/29/2020 COVID-19 vaccine (Adyuka-Bio NTech 30mcg/0.3mL) 12YO+ BIVALENT PF, MDV 09/05/2022 COVID-19 vaccine (Adyuka-Bio NTech 30mcg/0.3mL) PF, MDV 08/05/2022,10/28/2021 Influenza A [...] 0 12/13/2023 Social Connections Answer Date Recorded Do you often feel lonely or isolated from those around you? 4 04/02/2023 Financial Resource Strain Answer Date R ecorded Difficulty of Paying Living Expenses 3 04/02/2023 Difficulty of Paying Living Expenses Not on file 04/02/2023 Food Insecurity Answer Date Recorded Do you worry your food will run out before you are able to buy more? 1 04/02/2023 Transportation Needs Answer Date Record ed Does lack of transportation keep you from medica l appointments? 1 04/02/2023 Does lack of transportation keep you from work, meetings or getting things that you need? 1 04/02/2023 Housing Stability Answer Date Recorded What is your housing situation today? 1 04/02/2023 Utilities Answer Date Recorded Do you have trouble paying f or utilities (for example, heat, electricity, water, phone)? 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 Not on file Not on file Obstetrics History Last Filed Vital Signs Vital Sign Reading Time Taken Comments Blood Pressure 107/58 01/15/2024 1:08 PM CDT Pulse 56 01/15/2024 1:08 PM CDT Temperature 36.6 C (97.8 F) 12/13/2023 1:52 PM CDT Respiratory Rate 18 01/23/2023 10:4 5 AM CDT Oxygen Saturation 99% 01/15/2024 1:08 PM CDT Inhaled Oxygen Concentration - - Weight 112.8 kg (248 lb 11.2 oz) 01/15/2024 1:08 PM CDT Height 170.2 cm (5' 7) 12/13/2023 1:52 PM CDT Body Mass Index 38.95 12/13/2023 1:52 PM CDT Plan of Treatment Upcoming Encounters Date Type Department Care Team (Late st Contact Info) Description 07/07/2024 9:00 AM CDT Office Visit [facility] [address] [place] [address] Noman Talavera MD [address] [place] [id number] Health Maintenance Due Date Last Done Comments Hepatitis C screening for ag e 18-79 01/06/1968 ([place]) Influenza for age 65+ 12/30/202301/16, 01/13/2023, 02/13/2022, Additional history exists COVID-19 vaccine series ( season) 2023 01/26/2023, 09/05/2022, 08/05/2022, Additional history exists Zoster (shingles) series for [...] Tdap Completed 07/27/2006 Pneumococcal series for age 50+ Completed 09/12/2021, 10/29/2019, 08/23/2017, Additional history exists AAA screening age 65-74 Completed 10/27/19, 02/28/2022, 05/29/2016, Additional history exists RSV vaccine for adults or Completed 01/26/2023 Medical Devices Implanted Type Area Community Organization Worker Device Identifier Shelf Expiration Date Model / Serial / Lot Amplatz Ureteral Stent Set Implanted:Qty: 1 on 06/02/2013 at [facility] [id number] / / Description:AMPLATZ URETERAL STENT SET Procedures Procedure Name Priority Date/Time Associated Diagnosis Comments LIPID PANEL W REFLEX MEASURED LDL Routine 12/13/2023 1:45 PM CDT Hyperlipidemia CTA CHEST ABDOMEN PELVIS AORTIC DISSECTION W STAT 10/26/2022 5:45 PM CDT COLONOSCOPY DIAGNOSTIC Routine 04/04/2022 6:56 AM IT SERVICE CONTINUITY SUPERVISOR Screening for colon cancer from Last 3 Months or Most Recently Relevant to Health Maintenance Results * LIPID PANEL W REFLEX MEASURED LDL (12/13/2023 1:45 PM CDT) CHOLESTEROL,TOTAL 134 100 - 199 mg/dL 12/13/2023 10:46 PM CDT [facility] [employer] ([employer]) [facility] Comment: Cholesterol, Total Reference Ranges Desirable <200 mg/dL Borderline 200-239 mg/dL High >=240 mg/dL TRIGLYCERIDES 96 <150 mg/dL 12/13/2023 10:46 PM CDT [facility] HDL CHOLESTEROL 54 >40 mg/dL 10:46 PM CDT [facility] NON-HDL CHOLESTEROL 80 <145 mg/dl 12/13/2023 10:46 PM CDT [facility] CHOL/HDL RATIO 2.48 <4.50 12/13/2023 10:46 PM CDT [facility] LDL CHOLESTEROL 61 <=130 mg/dL 12/13/2023 10:46 PM CDT [facility] VLDL CHOLESTEROL 19 <=30 mg/dL 12/13/2023 10:46 PM CDT [facility] PROVIDER ORDERED STATUS RANDOM 12/13/2023 10:46 PM CDT [facility] Blood BLOOD SPECIMEN / Unknown Venipuncture / Unknown 12/13/2023 1:45 PM CDT 12/13/2023 1:45 PM CDT us Jose Linares MD CHEMISTRY Final Re sult [facility] [address] [place] [id number], [place] * CTA CHEST ABDOMEN PELVIS AORTIC DISSECTION W (10/26/2022 5:45 PM CDT) Anatomical Region Laterality Modality CHEST, Abdomen, Pelvis, AORTA, THORAX, HEART Computed Tomography 10/26/2022 5:45 PM CDT Impressions 10/26/2022 7:03 PM CDT 1. No active extravasation identified although the study was not optimized for evaluation of GI bleed. 2. Patchy infiltrate left lower lobe possibly representing early pneumonitis. 3. Stable bibasilar parenchymal calcifications. 4. Chronic pancreatitis. Narrative 10/26/2022 7:03 PM CDT For Patients: As a result of the Cures Act, medical imaging exams and procedure reports are released immediately into your electronic medical record. You may view this report before your referring provider. If you have questions, please contact your health care provider. EXAM: CTA CHEST ABDOMEN PELVIS AORTIC DISSECTION W LOCATION: [facility] MEDICAL IMAGING DATE: 10/26/2022 INDICATION: Anemia. GI bleed. COMPARISON: 01/10/2022 TECHNIQUE: CT angiogram chest abdomen pelvis during arterial phase of injection of IV contrast. 2D and 3D MIP reconstructions were performed by the medical technologist. Dose reduction techniques were used. CONTRAST: [...] aneurysm. Calcified plaque common iliac arteries bilaterally. Internal and external iliac arteries are patent bilaterally. [...] For Patients: As a result of the Cures Act, medical imagingexams and procedure reports are released immediately into your electronicmedical record. You may view this report before your referring provider.If you have questions, please contact your health care provider. EXAM: CTA CHEST ABDOMEN PELVIS AORTIC DISSECTION W LOCATION: [facility] MEDICAL IMAGING DATE: 10/26/2022 INDICATION: Anemia. GI bleed. COMPARISON: 01/10/2022 TECHNIQUE: CT angiogram chest abdomen pelvis during arterial phase ofinjection of IV contrast. 2D and 3D MIP reconstructions were performed bythe medical technologist. Dose reduction techniques were used. CONTRAST: [...] Stable bibasilar parenchymal calcifications. 4. Chronic pancreatitis. us Darrell Jessica DO CT Final Res ult * COLONOSCOPY DIAGNOSTIC (04/03/2022 12:00 AM IT SERVICE CONTINUITY SUPERVISOR) us Jose Linares MD GI PROCEDURE ORD Final R esult from Last 3 Months or Most Recently Relevant to Health Maintenance Additional Health Concerns Infection Onset Date Last Indicated MRSA Clearance Comment:Infection Control Note: Hx of MRSA, surveillance criteria met, no need for further testing or isolation precautions. Do not delete or deactivate the FYI. #1 04/13/11 Nares/throat negative #2 08/29/14 Nares negative HX MRSA+ R renal fluid 01/01/09; blood 08/03/2016 08/03/2016 Insurance MEDICARE PART A HB ONLY BLUE CROSS MEDICARE ADVANTAGE Advance Directives * Full Code (Latest Code [...] Not DiscussedPer Advance Care Plan Care Teams Digital Media Buyer Relationship Specialty Start Date End Date Votel, Jose Bateman MD [address] [place] [address] PCP - General Family Practice 08/17/11
--- NOTE | 2024-07-05 14:15 | ED.ABDPAIN ---
HPI - Abdominal Pain General Date Seen: 07/05/24 <Marc Marshall DO - Last Filed: 07/05/24 16:32> Chief Complaint: Abdominal Pain <Marc Marshall DO - Last Filed: 07/05/24 16:32> Stated Complaint: abdominal pain <Marc Marshall DO - Last Filed: 07/05/24 16:32> Time Seen by Provider: 07/05/24 13:44 <Marc Marshall DO - Last Filed: 07/05/24 16:32> Source: patient <Marc Marshall DO - Last Filed: 07/05/24 16:32> Mode of arrival: ambulatory <Marc Marshall DO - Last Filed: 07/05/24 16:32> Limitations: no limitations <Marc Marshall DO - Last Filed: 07/05/24 16:32> History of Present Illness HPI narrative: Patient is a 74-year-old male presenting to the emergency department for left lower quadrant abdominal pain. He states the pain started yesterday and seems to come and go. Notices improvements in his pain never he has a bowel movement. Denies having pain like this before. States the last time colonoscopy endoscopy last year and the only abnormality was seen in his duodenum and at that time he had surgery to have these abnormality removed. He described it as a flap. Has also had previous right hemicolectomy secondary to a polyp. Denies chest pain, shortness of breath, lightheadedness, dizziness, weakness, numbness, dysuria, headache, vision changes. States pain gets worse after eating so he has not be eating as much. Does states his bowel movements appear to be flattened. Does not feel like his abdomen is more distended than normal. Denies any testicular pain. Pain is worse with movement. Denies any recent heavy lifting. Pain improves at rest. Has also had previous gastric banding. No other concerns noted. <Marc Marshall - Last Filed: 07/05/24 16:32> Related Data Home Medications: Home Medications ?Medication ?Instructions ?Recorded ?Confirmed atorvastatin 40 mg tablet 40 mg PO DAILY 01/10/22 02/08/24 citalopram 10 mg tablet 10 mg PO DAILY 01/10/22 02/08/24 metformin 1,000 mg tablet 1,000 mg PO BIDWM 01/10/22 02/08/24 metoprolol succinate 50 mg 50 mg PO DAILY 01/10/22 02/08/24 tablet,extended release 24 hr cholecalciferol (vitamin D3) 25 1,000 unit PO DAILY 01/23/22 02/08/24 mcg (1,000 unit) tablet pantoprazole 40 mg tablet,delayed 40 mg PO DAILY 01/23/22 02/08/24 release acetaminophen 500 mg tablet 1,000 mg PO Q6H PRN 01/30/22 02/08/24 lisinopril 10 mg tablet 20 mg PO DAILY 09/26/22 02/08/24 amlodipine 5 mg tablet 5 mg PO DAILY 02/08/24 02/08/24 spironolactone 25 mg tablet 25 mg PO DAILY 02/08/24 02/08/24 Previous Rx's ?Medication ?Instructions ?Recorded aspirin 81 mg chewable tablet 81 mg PO DAILY #30 tabs 09/27/22 (Children's Aspirin) loperamide 2 mg capsule 2 mg PO BID PRN #60 caps 09/27/22 torsemide 5 mg tablet 5 mg PO DAILY #30 tabs 09/27/22 polyethylene glycol 3350 17 17 g PO BID PRN constipation #238 02/08/24 gram/dose oral powder (Miralax) grams ciprofloxacin HCl 500 mg tablet 500 mg PO BID 10 days #20 tabs 07/05/24 metronidazole 500 mg tablet 500 mg PO TID 10 days #30 tabs 07/05/24 <Marc Marshall DO - Last Filed: 07/05/24 16:32> Allergies/Adverse Reactions: Allergies Allergy/AdvReac Type Severity Reaction Status Date / Time No Known Drug Allergies Allergy Verified 07/05/24 16:11 <Marc Marshall DO - Last Filed: 07/05/24 16:32> Review of Systems Status of ROS Reports: 10 or more systems reviewed and unremarkable except as noted in History and below <Marc Marshall DO - Last Filed: 07/05/24 16:32> [facility] Medical History: Medical History Metabolic encephalopathy ?G93.41 - Metabolic encephalopathy (ICD-10) Hyponatremia ?E87.1 - Hypo-osmolality and hyponatremia (ICD-10) Acute right-sided weakness ?R53.1 - Weakness (ICD-10) Medical non-compliance ?Z91.199 - Patient's noncompliance with other medical treatment and regimen due to unspecified reason (ICD-10) Unintentional weight loss ?R63.4 - Abnormal weight loss (ICD-10) Atrial arrhythmia ?I49.8 - Other specified cardiac arrhythmias (ICD-10) Abnormal CT of brain ?R90.89 - Other abnormal findings on diagnostic imaging of central nervous system (ICD-10) Episode of gagging ?R19.8 - Other specified symptoms and signs involving the digestive system and abdomen (ICD-10) Seborrhea of face ?L21.9 - Seborrheic dermatitis, unspecified (ICD-10) Nausea ?R11.0 - Nausea (ICD-10) Microcytic anemia ?D50.9 - Iron deficiency anemia, unspecified (ICD-10) Steroid-induced hyperglycemia ?R73.9 - Hyperglycemia, unspecified (ICD-10) ?T38.0X5A - Adverse effect of glucocorticoids and synthetic analogues, initial encounter (ICD-10) Pituitary adenoma with extrasellar extension ?D35.2 - Benign neoplasm of pituitary gland (ICD-10) Benign non-nodular prostatic hyperplasia with lower urinary tract symptoms ?N40.1 - Benign prostatic hyperplasia with lower urinary tract symptoms (ICD-10) ASHD (arteriosclerotic heart disease) ?I25.10 - Atherosclerotic heart disease of [place] coronary artery without angina pectoris (ICD-10) Kidney stones ?N20.0 - Calculus of kidney (ICD-10) Aortic stenosis ?I35.0 - Nonrheumatic aortic (valve) stenosis (ICD-10) MRSA bacteremia ?R78.81 - Bacteremia (ICD-10) ?B95.62 - Methicillin resistant Staphylococcus aureus infection as the cause of diseases classified elsewhere (ICD-10) Postoperative hypotension ?I95.81 - Postprocedural hypotension (ICD-10) Morbid obesity ?E66.01 - Morbid (severe) obesity due to excess calories (ICD-10) Hyperlipidemia ?E78.5 - Hyperlipidemia, unspecified (ICD-10) Abnormal colonoscopy ?R93.3 - Abnormal findings on diagnostic imaging of other parts of digestive tract (ICD-10) Hx of colonic polyps ?Z86.010 - Personal history of colonic polyps (ICD-10) Sleep apnea ?G47.30 - Sleep apnea, unspecified (ICD-10) Malignant melanoma of right upper extremity ?C43.61 - Malignant melanoma of right upper limb, including shoulder (ICD-10) Hypertension ?I10 - Essential (primary) hypertension (ICD-10) Diabetes mellitus type 2 in obese ?E11.69 - Type 2 diabetes mellitus with other specified complication (ICD-10) ?E66.9 - Obesity, unspecified (ICD-10) <Marc Marshall DO - Last Filed: 07/05/24 16:32> Surgical History: Surgical History History of transurethral resection of prostate ?Z98.890 - Other specified postprocedural states (ICD-10) ?Z90.79 - Acquired absence of other genital organ(s) (ICD-10) 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) H/O vasectomy ?Z98.52 - Vasectomy status (ICD-10) S/P skin biopsy ?Z98.890 - Other specified postprocedural states (ICD-10) H/O nephrostomy H/O lithotripsy ?Z98.890 - Other specified postprocedural states (ICD-10) S/P laparoscopic sleeve gastrectomy ?Z98.84 - Bariatric surgery status (ICD-10) History of total right hip arthroplasty ?Z96.641 - Presence of right artificial hip joint (ICD-10) H/O umbilical hernia repair ?Z98.890 - Other specified postprocedural states (ICD-10) ?Z87.19 - Personal history of other diseases of the digestive system (ICD-10) H/O hemorrhoidectomy ?Z98.890 - Other specified postprocedural states (ICD-10) Hx of colonoscopy ?Z98.890 - Other specified postprocedural states (ICD-10) H/O right hemicolectomy ?Z90.49 - Acquired absence of other specified parts of digestive tract (ICD-10) Hx of appendectomy ?Z90.49 - Acquired absence of other specified parts of digestive tract (ICD-10) <Marc Marshall DO - Last Filed: 07/05/24 16:32> Family History: Family History Father Colon cancer Obesity Sister Diabetes Obesity Mother Heart disease High blood pressure Hyperlipidemia Obesity Stroke <Marc Marshall DO - Last Filed: 07/05/24 16:32> Social History: Social History Narrative: [place] Requests that we talk with his ex- about current health issues. Son is also actively involved in assisting his care. Wishes to be full code. He does not smoke. Highest level of school completed/degree received: Associate degree: occupational, technical, vocational program Smoking Status: Former smoker What tobacco products do you use: cigarettes Years smoked: 30 Smoking quit date/years: >15 years ago Do you use any of these nicotine containing products: None Second hand tobacco smoke exposure: No How often do you have a drink containing alcohol: 2-4 times a month Alcohol type: beer How many standard drinks containing alcohol do you have on a typical day: 1 or 2 How often do you have six or more drinks on one occasion: Less than monthly AUDIT-C Alcohol total score: 3 Non-prescribed substance use: denies use Caffeine: Yes (3-4 daily) Do you think of yourself as: straight/heterosexual Gender Identity: male service: No <Marc Marshall DO - Last Filed: 07/05/24 16:32> Exam Narrative: Exam Narrative: Const: Well-nourished, Well-developed, in moderate distress Eyes: PERRL, no conjunctival injection, and symmetrical lids HENT: Atraumatic external nose and ears. Moist mucous membranes. Neck: Symmetric, trachea midline, No thyromegaly. CVS: RRR, No murmurs or gallops. Peripheral pulses 2+ and equal in all extremities RESP: Unlabored respiratory effort. Clear to auscultation bilaterally. GI: Nontender/Nondistended, No rebound or guarding. MSK:Extremities w/o deformity, Normal Active ROM Skin: Warm, Dry. No rashes or lesions. Neuro: Normal Muscle tone, No focal neurological deficits. Psych: Awake, Alert, & Oriented x3. Appropriate mood and affect. <Marc P [place], DO - Last Filed: 07/05/24 16:32> Const: Vital Signs, click to edit/add: Vital Signs - 24 hr 07/05/24 12:22 07/05/24 14:49 07/05/24 14:59 Temperature 96.8 F L Pulse Rate 65 Pulse Rate [Pulse Oximeter] 55 L Respiratory Rate 20 12 Blood Pressure 126/65 Blood Pressure [Ri ght Upper Arm] 160/63 H Pulse Oximetry 97 98 97 Oxygen Delivery Me thod Room Air Room Air 07/05/24 15:00 07/05/24 15:05 07/05/24 15:15 Temperature Pulse Rate 63 52 L 51 L Pulse Rate [Pulse Oximeter] Respiratory Rate 12 11 L 10 L Blood Pressure Blood Pressure [Ri ght Upper Arm] Pulse Oximetry 97 99 97 Oxygen Delivery Me thod 07/05/24 15:30 07/05/24 15:31 07/05/24 15:33 Temperature Pulse Rate 55 L 65 56 L Pulse Rate [Pulse Oximeter] Respiratory Rate 12 15 32 H Blood Pressure 118/58 L 134/77 Blood Pressure [Ri ght Upper Arm] Pulse Oximetry 97 95 99 Oxygen Delivery Me thod Room Air 07/05/24 15:45 07/05/24 16:01 07/05/24 16:03 Temperature Pulse Rate 53 L 55 L Pulse Rate [Pulse Oximeter] Respiratory Rate 9 L 13 10 L Blood Pressure 151/61 H Blood Pressure [Ri ght Upper Arm] Pulse Oximetry 94 Oxygen Delivery Me thod Room Air 07/05/24 16:15 Temperature Pulse Rate 55 L Pulse Rate [Pulse Oximeter] Respiratory Rate Blood Pressure Blood Pressure [Ri ght Upper Arm] Pulse Oximetry 95 Oxygen Delivery Me thod <Marc Marshall, DO - Last Filed: 07/05/24 16:32> Vital Signs, click to edit/add: Vital Signs - 24 hr 07/05/24 12:22 07/05/24 14:49 07/05/24 14:59 Temperature 96.8 F L Pulse Rate 65 Pulse Rate [Pulse Oximeter] 55 L Respiratory Rate 20 12 Blood Pressure 126/65 Blood Pressure [Ri ght Upper Arm] 160/63 H Pulse Oximetry 97 98 97 Oxygen Delivery Me thod Room Air Room Air 07/05/24 15:00 07/05/24 15:05 07/05/24 15:15 Temperature Pulse Rate 63 52 L 51 L Pulse Rate [Pulse Oximeter] Respiratory Rate 12 11 L 10 L Blood Pressure Blood Pressure [Ri ght Upper Arm] Pulse Oximetry 97 99 97 Oxygen Delivery Me thod 07/05/24 15:30 07/05/24 15:31 07/05/24 15:33 Temperature Pulse Rate 55 L 65 56 L Pulse Rate [Pulse Oximeter] Respiratory Rate 12 15 32 H Blood Pressure 118/58 L 134/77 Blood Pressure [Ri ght Upper Arm] Pulse Oximetry 97 95 99 Oxygen Delivery Me thod Room Air 07/05/24 15:45 07/05/24 16:01 07/05/24 16:03 Temperature Pulse Rate 53 L 55 L Pulse Rate [Pulse Oximeter] Respiratory Rate 9 L 13 10 L Blood Pressure 151/61 H Blood Pressure [Ri ght Upper Arm] Pulse Oximetry 94 Oxygen Delivery Me thod Room Air 07/05/24 16:15 Temperature Pulse Rate 55 L Pulse Rate [Pulse Oximeter] Respiratory Rate Blood Pressure Blood Pressure [Ri ght Upper Arm] Pulse Oximetry 95 Oxygen Delivery Me thod <Nova Hassan MD - Last Filed: 07/05/24 17:48> Course Course ED Course: Was asked to follow up with the results of the CT scan of this patient. CT scan is consistent with gastritis and sigmoid diverticulitis. At this time without an elevated white cell count, vomiting or fevers I do think it is safe to treat with liquid diet and acetaminophen for pain control. patient will be sent home on ciprofloxacin and metronidazole. Patient feels comfortable with this plan. Patient has an appointment already scheduled with his primary care provider on Sunday at 9:00 a.m., he is encouraged to keep this appointment. <Nova Hassan MD - Last Filed: 07/05/24 17:48> Vital Signs Vital signs: Initial Vital Signs Temperature 96.8 F L 07/05/24 12:22 Temperature Source Temporal Artery Scan 07/05/24 12:22 Pulse Rate 55 L 07/05/24 12:22 Respiratory Rate 20 07/05/24 12:22 Blood Pressure 160/63 H 07/05/24 12:22 Blood Pressure Mean 95 07/05/24 12:22 Pulse Oximetry 97 07/05/24 12:22 Oxygen Delivery Method Room Air 07/05/24 12:22 Vital Signs Temperature 96.8 F L 07/05/24 12:22 Pulse Rate 55 L 07/05/24 12:22 Respiratory Rate 20 07/05/24 12:22 Blood Pressure 160/63 H 07/05/24 12:22 Pulse Oximetry 97 07/05/24 12:22 Oxygen Delivery Method Room Air 07/05/24 12:22 Temperature 96.8 F L 07/05/24 12:22 Pulse Rate 55 L 07/05/24 16:15 Respiratory Rate 10 L 07/05/24 16:03 Blood Pressure 151/61 H 07/05/24 16:03 Pulse Oximetry 95 07/05/24 16:15 Oxygen Delivery Method Room Air 07/05/24 16:03 <Marc Marshall DO - Last Filed: 07/05/24 16:32> Initial Vital Signs Temperature 96.8 F L 07/05/24 12:22 Temperature Source Temporal Artery Scan 07/05/24 12:22 Pulse Rate 55 L 07/05/24 12:22 Respiratory Rate 20 07/05/24 12:22 Blood Pressure 160/63 H 07/05/24 12:22 Blood Pressure Mean 95 07/05/24 12:22 Pulse Oximetry 97 07/05/24 12:22 Oxygen Delivery Method Room Air 07/05/24 12:22 Vital Signs Temperature 96.8 F L 07/05/24 12:22 Pulse Rate 55 L 07/05/24 12:22 Respiratory Rate 20 07/05/24 12:22 Blood Pressure 160/63 H 07/05/24 12:22 Pulse Oximetry 97 07/05/24 12:22 Oxygen Delivery Method Room Air 07/05/24 12:22 Temperature 96.8 F L 07/05/24 12:22 Pulse Rate 55 L 07/05/24 16:15 Respiratory Rate 10 L 07/05/24 16:03 Blood Pressure 151/61 H 07/05/24 16:03 Pulse Oximetry 95 07/05/24 16:15 Oxygen Delivery Method Room Air 07/05/24 16:03 <Nova Hassan MD - Last Filed: 07/05/24 17:48> Medications Administered Medications: Discontinued Medications Generic Name Dose Route Start Last Admin Trade Name Freq PRN Reason Stop Dose Admin Morphine Sulfate 4 mg 07/05/24 15:01 07/05/24 15:20 Morphine 4 Mg/Ml Inj IVP 07/05/24 15:02 4 mg ONCE ONE Administration <Macr Marshall DO - Last Filed: 07/05/24 16:32> Discontinued Medications Generic Name Dose Route Start Last Admin Trade Name Scarlett PRN Reason Stop Dose Admin Morphine Sulfate 4 mg 07/05/24 15:01 07/05/24 15:20 Morphine 4 Mg/Ml Inj IVP 07/05/24 15:02 4 mg ONCE ONE Administration <Nova Hassan MD - Last Filed: 07/05/24 17:48> MDM - Abdominal Pain MDM Narrative Medical decision making narrative: Patient is a 74-year-old male presenting for left lower quadrant abdominal pain. He has some mild diffuse tenderness but is much worse than left lower quadrant. Will do an EKG and troponin to make sure this isn't an uncommon presentation for ACS. Differential at this time includes AA bowel obstruction, diverticulitis, muscle strain. Due to location pancreatitis, appendicitis, gallbladder liver disease seem less likely. Order a CBC, BMP, liver panel and do CT scan with IV contrast. Patient declines pain or nausea medicine at this time. CBC shows no concerning abnormalities. Hemoglobin is actually improved compared to his baseline. CMP shows a sodium of 128 otherwise no concerning findings. Troponin and an EKG shows no concerning findings his EKG looks similar previous EKG on file. Did admit given him some morphine for pain. <Marc Marshall DO - Last Filed: 07/05/24 16:32> Lab Data Labs: Lab Results 07/05/24 07/05/24 07/05/24 Range/Units 14:03 15:16 15:25 WBC 6.45 (4.50-11.00) K/uL RBC 3.42 L (4.30-5.90) m/uL Hgb 10.1 L (13.5-17.5) gm/dL Hct 29.9 L (37.0-53.0) % MCV 87 (80-100) fL MCH 30 (26-34) pg MCHC 34 (32-36) gm/dL RDW Coeff of Daniel 13.5 (11.5-15.5) % Plt Count 167 (140-440) K/uL Neut % (Auto) 52.2 (42.0-72.0) % Lymph % (Auto) 33.6 (20-44) % [place] % (Auto) 7.4 (0.0-11.0) % Eos % (Auto) 5.3 (0.0-7.0) % Baso % (Auto) 0.9 (0.0-3.0) % Neut # (Auto) 3.36 (1.7-7.0) K/uL Lymph # (Auto) 2.17 (0.90-2.90) K/uL [facility] # (Auto) 0.50 (0.00-0.90) K/UL Eos # (Auto) 0.34 (0.00-0.50) K/uL Baso # (Auto) 0.06 (0.00-0.30) K/uL Abs Immat Gran (auto) 0.04 (0.00-0.30) K/uL Imm/Tot Granulo (auto) 0.6 % Sodium 128 L (135-149) mmol/L Potassium 3.7 (3.6-5.1) mmol/L Chloride 94 L (96-114) mmol/L Carbon Dioxide 24 (20-32) mmol/L Anion Gap 10 (7-15) mEq/L BUN 15 (7-30) mg/dL Creatinine 0.7 (0.5-1.5) mg/dL Estimated Creat Clear 60.59 Estimated GFR 97 ml/min Glucose 77 (60-115) mg/dL Calcium 9.5 (8.4-10.6) mg/dL Total Bilirubin 0.7 (0.1-1.5) mg/dL Direct Bilirubin 0.2 (0.0-0.5) mg/dL AST 21 (12-35) U/L ALT 11 (4-50) U/L Alkaline Phosphatase 84 (40-150) U/L Troponin I < 0.01 L (0.01-0.04) ng/mL Total Protein 6.8 (6.0-8.3) g/dL Albumin 4.1 (3.3-5.0) g/dL Urine Color Yellow (Yellow) Urine Appearance Clear (Clear) Urine pH 6.5 (5.0-8.5) Ur Specific [place] 1.025 (1.000-1.030) Urine Protein 3+ A (Negative) Urine Glucose (UA) Negative (Negative) Urine Ketones Negative (Negative) Urine Blood Negative (Negative) Urine Nitrite Negative (Negative) Urine Bilirubin Negative (Negative) Urine Urobilinogen 0.2 (0.2-1.0) Ur Leukocyte Esterase Negative (Negative) Urine RBC 0-2 (0-2) Urine WBC 0-2 (0-5) Ur Squamous Epith Cells Few (None-Few) Urine Bacteria None (None) Lab Acknowledgement Test Added POC Creatinine 0.8 (0.6-1.3) mg/dl POC Troponin I 0.02 (0.01-0.04) ng/ml <Marc Marshall, DO - Last Filed: 07/05/24 16:32> Lab Results 07/05/24 07/05/24 07/05/24 Range/Units 14:03 15:16 15:25 WBC 6.45 (4.50-11.00) K/uL RBC 3.42 L (4.30-5.90) m/uL Hgb 10.1 L (13.5-17.5) gm/dL Hct 29.9 L (37.0-53.0) % MCV 87 (80-100) fL MCH 30 (26-34) pg MCHC 34 (32-36) gm/dL RDW Coeff of Daniel 13.5 (11.5-15.5) % Plt Count 167 (140-440) K/uL Neut % (Auto) 52.2 (42.0-72.0) % Lymph % (Auto) 33.6 (20-44) % [place] % (Auto) 7.4 (0.0-11.0) % Eos % (Auto) 5.3 (0.0-7.0) % Baso % (Auto) 0.9 (0.0-3.0) % Neut # (Auto) 3.36 (1.7-7.0) K/uL Lymph # (Auto) 2.17 (0.90-2.90) K/uL [facility] # (Auto) 0.50 (0.00-0.90) K/UL Eos # (Auto) 0.34 (0.00-0.50) K/uL Baso # (Auto) 0.06 (0.00-0.30) K/uL Abs Immat Gran (auto) 0.04 (0.00-0.30) K/uL Imm/Tot Granulo (auto) 0.6 % Sodium 128 L (135-149) mmol/L Potassium 3.7 (3.6-5.1) mmol/L Chloride 94 L (96-114) mmol/L Carbon Dioxide 24 (20-32) mmol/L Anion Gap 10 (7-15) mEq/L BUN 15 (7-30) mg/dL Creatinine 0.7 (0.5-1.5) mg/dL Estimated Creat Clear 60.59 Estimated GFR 97 ml/min Glucose 77 (60-115) mg/dL Calcium 9.5 (8.4-10.6) mg/dL Total Bilirubin 0.7 (0.1-1.5) mg/dL Direct Bilirubin 0.2 (0.0-0.5) mg/dL AST 21 (12-35) U/L ALT 11 (4-50) U/L Alkaline Phosphatase 84 (40-150) U/L Troponin I < 0.01 L (0.01-0.04) ng/mL Total Protein 6.8 (6.0-8.3) g/dL Albumin 4.1 (3.3-5.0) g/dL Urine Color Yellow (Yellow) Urine Appearance Clear (Clear) Urine pH 6.5 (5.0-8.5) Ur Specific [place] 1.025 (1.000-1.030) Urine Protein 3+ A (Negative) Urine Glucose (UA) Negative (Negative) Urine Ketones Negative (Negative) Urine Blood Negative (Negative) Urine Nitrite Negative (Negative) Urine Bilirubin Negative (Negative) Urine Urobilinogen 0.2 (0.2-1.0) Ur Leukocyte Esterase Negative (Negative) Urine RBC 0-2 (0-2) Urine WBC 0-2 (0-5) Ur Squamous Epith Cells Few (None-Few) Urine Bacteria None (None) Lab Acknowledgement Test Added POC Creatinine 0.8 (0.6-1.3) mg/dl POC Troponin I 0.02 (0.01-0.04) ng/ml <Nova Hassan MD - Last Filed: 07/05/24 17:48> Imaging Data CT scan - abdomen: Attestation: I have reviewed the pertinent imaging results. <Nova Hassan MD - Last Filed: 07/05/24 17:48> Radiologist's impression: CT abdomen and pelvis acquired with 123 cc Isovue 370 IV contrast. COMPARISON: August 2013. FINDINGS: Lower chest: Dendriform ossifications. Coronary artery calcifications. Atherosclerotic calcifications. ABDOMEN: Liver: Normal Stack. Subcentimeter hypodensities are too small to characterize however statistically represent cysts. Gallbladder and biliary: Sludge in an otherwise normal gallbladder. Normal caliber bile ducts. Spleen: Normal size and enhancement. Pancreas: Parenchymal calcifications sequela of chronic pancreatitis. Adrenal glands: Normal adrenal glands. Kidneys and ureters: Normal enhancement. No radio-opaque calculi. No hydroureteronephrosis. Renal cysts. Subcentimeter hypodensities are too small to characterize however statistically represent cysts. GI tract: Changes of gastric sleeve. Diffuse gastric antral wall thickening and hyperemia. Streak artifact from coiling versus clipping in the 1st portion of the duodenum. Normal caliber small and large bowel loops. Changes of ileocecectomy. Prominent bilateral retroperitoneal fat. A few colonic diverticula with associated adjacent inflammatory stranding in the sigmoid. Vascular structures: Normal caliber aorta with atherosclerotic calcifications. Lymph nodes: No lymphadenopathy in the abdomen or pelvis by size criteria. Peritoneum: Small amount of free fluid in the right hemiabdomen. No free air or focal drainable collection. PELVIS: Genitourinary system: Although relatively decompressed there is suggestion of circumferential wall thickening of the urinary bladder. Recommend correlation with urinalysis if not already performed to assess for underlying cystitis. Likely changes of TURP SKELETAL STRUCTURES AND SOFT TISSUES: Right hip arthroplasty. IMPRESSION: 1. Acute uncomplicated sigmoid diverticulitis. 2. Diffuse gastric antral wall thickening and hyperemia. Recommend correlation for clinical symptoms of gastritis. If not previously evaluated, recommend further assessment with gastroenterology as underlying malignancy can have a similar appearance. <Nova Hassan MD - Last Filed: 07/05/24 17:48> ECG Data Attestation: I personally reviewed and interpreted this ECG as follows: <Marc Marshall DO - Last Filed: 07/05/24 16:32> Prior ECG tracings: available for review <Marc Marshall DO - Last Filed: 07/05/24 16:32> Interpretation: Sinus rhythm with first-degree AV block with a rate of 76 beats per minute. Frequent PVCs. Elongated AR interval. No ST or T-wave abnormalities. Right bundle-branch block. Appears similar previous EKG on file <Marc Marshall DO - Last Filed: 07/05/24 16:32> Discharge Plan Discharge Clinical Impression: Diverticulitis <Marc Marshall DO - Last Filed: 07/05/24 16:32> Patient Disposition: Home, Self-Care <Marc Marshall - Last Filed: 07/05/24 16:32> Condition: Stable <Marc Marshall DO - Last Filed: 07/05/24 16:32> Instructions: Diverticulitis (DC), Diverticulitis Diet (ED) <Marc Marshall DO - Last Filed: 07/05/24 16:32> Additional Instructions: You should eat a liquid diet until your pain improves. You can then add things like Jell-O and pudding slowly back into your diet and advanced your diet as you tolerate. Okay to use acetaminophen as needed/ as directed for pain. You should follow-up with your doctor on Sunday morning as you already have scheduled. If you start vomiting, your pain worsens, or you develop a fever then you should return to the emergency department right away. I also recommend that you see a GI specialist if you have not already seen one in the last 6 months. You have evidence of gastritis, or inflammation of the stomach, and this should be further evaluated. <Marc Marshall - Last Filed: 07/05/24 16:32> Prescriptions: New ciprofloxacin HCl 500 mg tablet 500 mg PO BID 10 Days Qty: 20 0RF metronidazole 500 mg tablet 500 mg PO TID 10 Days Qty: 30 0RF No Action atorvastatin 40 mg tablet 40 mg PO DAILY metoprolol succinate 50 mg tablet extended release 24 hr 50 mg PO DAILY citalopram 10 mg tablet 10 mg PO DAILY metformin 1,000 mg tablet 1,000 mg PO BIDWM Patient Comments: pantoprazole 40 mg tablet,delayed release (DR/EC) 40 mg PO DAILY cholecalciferol (vitamin D3) 25 mcg (1,000 unit) tablet 1,000 unit PO DAILY acetaminophen 500 mg tablet 1,000 mg PO Q6H PRN lisinopril 10 mg tablet 20 mg PO DAILY loperamide 2 mg Capsule 2 mg PO BID PRNQty: 60 0RF torsemide 5 mg Tablet 5 mg PO DAILY Qty: 30 0RF aspirin [Children's Aspirin] 81 mg Tablet,Chewable 81 mg PO DAILY Qty: 30 0RF amlodipine 5 mg tablet 5 mg PO DAILY spironolactone 25 mg tablet 25 mg PO DAILY polyethylene glycol 3350 [Miralax] 17 gram/dose powder 17 g PO BID PRN (Reason: constipation) Qty: 238 0RF <Marc Marshall DO - Last Filed: 07/05/24 16:32> Follow Up/Referrals: Jose Linares MD [Primary Care Provider] - <Marc Marshall DO - Last Filed: 07/05/24 16:32> Stand Alone Forms: [employer] Info Instructions <Marc Marshall DO - Last Filed: 07/05/24 16:32>
[2024-07-05 14:17] LABS: Appearance Urine Clear (Clear); Bilirubin Urine Negative (Negative); Blood Urine Negative (Negative); Color Urine Yellow (Yellow); Glucose Urine Negative (Negative); Ketones Urine Negative (Negative); Leukocyte Esterase Urine Negative (Negative); Nitrite Urine Negative (Negative); Protein Urine 3+ (Negative); Specific Gravity Urine 1.025 (1.000-1.030); Urobilinogen Urine 0.2 (0.2-1.0); pH Urine 6.5 (5.0-8.5)
[2024-07-05 14:37] LABS: RBC Urine 0-2 (0-2); Squamous Epithelial Cell Urine Few (None-Few); WBC Urine 0-2 (0-5)
[2024-07-05] MEDS: MORPHINE 4 MG/ML INJ IVP (15:20)
[2024-07-05 15:36] LABS: Basophils Absolute Auto 0.06 K/uL (0.00-0.30); Basophils Percent Auto 0.9 % (0.0-3.0); Eosinophils Absolute Auto 0.34 K/uL (0.00-0.50); Eosinophils Percent Auto 5.3 % (0.0-7.0); Hematocrit 29.9 % (37.0-53.0); Hemoglobin* 10.1 gm/dL (13.5-17.5); Immature Granulocytes Abs Auto 0.04 K/uL (0.00-0.30); Immature Granulocytes Pct Auto 0.6 %; Lymphocytes Absolute Auto 2.17 K/uL (0.90-2.90); Lymphocytes Percent Auto 33.6 % (20-44); Mean Corpuscular HGB Conc 34 gm/dL (32-36); Mean Corpuscular Hemoglobin 30 pg (26-34); Mean Corpuscular Volume 87 fL (80-100); Monocytes Percent Auto 7.4 % (0.0-11.0); Neutrophils Absolute Auto 3.36 K/uL (1.7-7.0); Neutrophils Percent Auto 52.2 % (42.0-72.0); Platelet Count* 167 K/uL (140-440); RDW Coefficient of Variation % 13.5 % (11.5-15.5); Red Blood Count 3.42 m/uL (4.30-5.90); White Blood Count* 6.45 K/uL (4.50-11.00)
[2024-07-05 15:38] LABS: Slide Review Reflex No
[2024-07-05 15:45] LABS: Troponin, Point-of-Care* 0.02 ng/ml (0.01-0.04)
[2024-07-05 15:51] LABS: Albumin* 4.1 g/dL (3.3-5.0)
[2024-07-05 15:52] LABS: Creatinine, Point-of-Care* 0.8 mg/dl (0.6-1.3)
[2024-07-05 15:52] LABS: Chloride* 94 mmol/L (96-114); Potassium* 3.7 mmol/L (3.6-5.1); Sodium* 128 mmol/L (135-149)
[2024-07-05 15:54] LABS: Anion Gap 10 mEq/L (7-15); Aspartate Amino Transferase* 21 U/L (12-35); Blood Urea Nitrogen* 15 mg/dL (7-30); Carbon Dioxide* 24 mmol/L (20-32); Creatinine* 0.7 mg/dL (0.5-1.5); Est. Creatinine Clearance* 60.59; Estimated Glomerular Filt Rate 97 ml/min; Total Protein* 6.8 g/dL (6.0-8.3)
[2024-07-05 15:55] LABS: Alanine Aminotransferase* 11 U/L (4-50); Alkaline Phosphatase* 84 U/L (40-150); Bilirubin Direct* 0.2 mg/dL (0.0-0.5); Bilirubin Total* 0.7 mg/dL (0.1-1.5); Calcium* 9.5 mg/dL (8.4-10.6); Glucose* 77 mg/dL (60-115)
[2024-07-05 16:21] LABS: Troponin I* < 0.01 ng/mL (0.01-0.04)
[2024-07-05] MEDS: 0.9 % SODIUM CHLORIDE 1000 ml 1,000 ML IV (17:47)
== END 2024-07-05 17:57 | disposition home or self-care (01) ==
PROVIDERS: Emergency Provider Student in an Organized Health Care Education/Training Program; PCP Family Medicine
DX: K57.92 Diverticulitis of intestine, part unspecified, without perforation or abscess without bleeding (principal)
CPT/HCPCS: 36415; 74177; 80048; 80076; 81001; 82565; 84484; 85025; 93005; 94761; 96374; 99284; 99285; J2270; J7030; Q9967

== ENCOUNTER 2024-07-09 17:42 | Inpatient (IN) | payer MEDICARE, SELFPAY ==
[2024-07-09] VITALS (59 sets, daily range): BP systolic 71–118; BP diastolic 40–87; PULSE 55–131; RESP 3–66; O2SAT 75–100; BMI 39.2
--- OUTSIDE RECORDS SUMMARY | 2024-07-09 17:45 | XMS_ITS | Clinical Summary ---
Author Organization [facility] Address [address] [place] [address]. [place] [address] Care Team Providers Care Distribution Transformer Assembler Name Role Phone Milagros Jose Veloz Primary Care Provider [phone] Allergies Active Allergy Reactions Criticality Noted Date [...] on file Legal Sex Male 5:05 AM WIRE [employer] Gender Identity Not on file Sexual Orientation Not on file Last Filed Vital Signs Vital Sign Reading Time Taken Comments Blood Pressure 130/60 05/13/2022 3:23 PM WIRE W[employer]ER Pulse 76 05/13/2022 3:23 PM WIRE W[employer] Temperature 37.2 C (98.9 F) 05/13/2022 3:23 PM WIRE W[employer]ER Respiratory Rate 18 05/13/2022 3:23 PM WIRE W[employer]ER Oxygen Saturation 91% 05/13/2022 3:23 PM WIRE W[employer]ER Inhaled Oxygen Concentration - - Weight 132.3 kg (291 lb 11.2 oz) 05/09/2022 5:50 AM WIRE WINDER scale Height 167.6 cm (5' 6) 05/09/2022 5:50 AM WIRE W[employer]ER s tated Body Mass Index 47.08 05/09/2022 5:50 AM WIRE WINDER Plan of Treatment Health Maintenance Due Date [...] GLUCOSE BY METER Routine 05/13/2022 7:57 AM WIRE WINDER from Last 3 Months or Most Recently Relevant to Health Maintenance Results * (ABNORMAL) Glucose by meter (05/13/2022 7:57 AM WIRE WINDER) GLUCOSE BY METER POCT 111(H) 70 - 99 mg/dL 05/13/2022 8:05 AM WIRE W[employer]ER [facility] POCT RESULTS Blood, Capillary BLOOD SPECIMEN / Unknown 05/13/2022 7:57 AM WIRE WINDER 05/13/2022 8:05 AM WIRE WINDER us Lencho Walsh MD LAB - BEAKER POCT Final Re sult [facility] POCT RESULTS [address] [place] [address] from Last 3 Months or Most Recently Relevant to Health Maintenance Insurance MEDICARE [facility] MEDICARE ADVANTAGE [place] [id number] Advance Directives For more information, please contact: [phone] * Full Code (Latest Code Status on [...] 9:17 PM 02/06/2016 1:05 PM Care Teams Distribution Transformer Assembler Relationship Specialty Start Date End Date Jose Linares: [phone] PCP - General Family Practice 02/02/16
--- OUTSIDE RECORDS SUMMARY | 2024-07-09 17:45 | XMS_ITS | Data Portability ---
Author Organization [facility], [facility] Address [address] [place] [address] Care Team Providers Care Warm In Name Role Phone PAVELTEJANE Salvador Primary Care Provider Assessment No assessment recorded. Plan of Treatment Reminders Order Date Submit Date Provider Last Modified By Organization Details Last Modified Time Details Appointments None recorded. Lab urinalysis, dipstick 2022 023 [facility], [address], [address], [place], [address], 3 16:30:11 urinalysis, microscopic 2022 023 [facility], [address], [address], [place], [address], 4 05:01:40 urinalysis, dipstick 2022 023 [facility], [address], [address], [place], [address], 3 12:40:06 urinalysis, dipstick 2022 023 [facility], [address], [address], [place], [address], 3 11:00:44 culture, urine 2021 022 [facility], [address], [address], [place], [address], 3 12:21:53 urinalysis, dipstick 2021 022 [facility], [address], [address], [place], [address], 2 11:50:43 Referral None recorded. Procedures None recorded. Surgeries transurethr al resection of prostate (SURG) 2021 [email or web address] [place] [address], [address], [place], [address], 3 09:58:26 Imaging None recorded. Medication Orders None recorded. Patient TargetsNo targets recorded. Patient Instructions Encounter Date Encounter Id Patient Instructions Last Modified By Organization Details Last Modified Time 03/16/2022 [id number] BPH/weak stream: Discussed options including adding finasteride [...] were answered. Not available 03/16/2022 15:50:47 06/08/2022 [id number] BPH/weak stream: He's doing well. He is having some urgency and frequency which are slowly improving. His force of stream is much improved. I'll see him back in 3 months. Not available 06/08/2022 10:53:24 09/06/2022 [id number] BPH/weak stream: He's doing well with his [...] PSA prior. Not available 09/06/2022 12:34:06 03/14/2023 [id number] BPH/weak stream: He's voiding well since the [...] S+ color -advantus YELLOW yellow Not Available [facility] [address] [facility] [address], [place], [address], 04/28/2022 11:50:43 04/28/20 22 04/28/2022 UA DIP CS STATU S+ appearance -advantus CLEAR clear Not Available [facility] [address] [facility] [address], [place], [address], 04/28/2022 11:50:43 04/28/20 22 04/28/2022 UA DIP CS STATU S+ glucose -advantus NEGATI VE mg/dL negati ve Not Available [facility] [address] [facility] [address], [place], [address], 04/28/2022 11:50:43 04/28/20 22 04/28/2022 UA DIP CS STATU S+ bilirubin -advantus NEGATI VE negati ve Not Available [facility] [address] [facility] [address], [place], [address], 04/28/2022 11:50:43 04/28/20 22 04/28/2022 UA DIP CS STATU S+ ketones -advantus NEGATI VE mg/dL negati ve Not Available [facility] [address] [place] [address] [address], [place], [address], 04/28/2022 11:50:43 04/28/20 22 04/28/2022 UA DIP CS STATU S+ sp. gravity -advantus 1.020 1.010- 1.025 Not Available [facility] [address] [place] [address], [place], [address], 04/28/2022 11:50:43 04/28/20 22 04/28/2022 UA DIP CS STATU S+ pH -advantus 7.0 5.0-8. 0 Not Available [facility] [address] [place] [address], [place], [address], 04/28/2022 11:50:43 04/28/20 22 04/28/2022 UA DIP CS STATU S+ protein -advantus 100 MG/DL mg/dL negati ve abnormal Not Available [facility] [address] [place] [address] [address], [place], [address], 04/28/2022 11:50:43 04/28/20 22 04/28/2022 UA DIP CS STATU S+ urobilinogen -advantus 0.2 E.U./D L 0.2 E.U./d L Not Available [facility] [address] [facility] [address], [place], [address], 04/28/2022 11:50:43 04/28/20 22 04/28/2022 UA DIP CS STATU S+ nitrites -advantus NEGATI VE negati ve Not Available [facility] [address] [facility] [address], [place], [address], 04/28/2022 11:50:43 04/28/20 22 04/28/2022 UA DIP CS STATU S+ blood -advantus NEGATI VE negati ve Not Available [facility] [address] [place] [address] [address], [place], [address], 04/28/2022 11:50:43 04/28/20 22 04/28/2022 UA DIP CS STATU S+ leukocytes -advantus NEGATI VE negati ve Not Available [facility] [address] [place] [address] [address], [place], [address], 04/28/2022 11:50:43 04/28/20 22 04/28/2022 UA DIP CS STATU S+ performed by BRITTNEE Smith Not Available [facility] [address] [place] [address] [address], [place], [address], 04/28/2022 11:50:43 04/28/20 22 04/28/2022 UA DIP [...] for provi arash revie w. Not Available [facility] [address] [facility] [address], [place], [address], 04/28/2022 11:50:43 04/28/20 22 04/28/2022 URINE CULTU RE final report MICROB IOLOGY RESULT S abnormal SOURC E Void KNOWN ALLER GIES nkda TREAT MENT none MEDIA PLATE D AT: Media plate d on 04/28 @ 12:51 PM COLON Y COUNT 20,00 0-50, 000 cfu/m l RESUL T Enter ococc us mriacle narum (Isol ate 1) Sensi tivit y Shanta sis [place] te 1 ----- ----- ----- ----- ----- [...] s Desk [facility]. S= Susce ptibl e;I= Inter [...] for provi arash revie w. Not Available [facility] [address] [place] [address] [address], [place], [address], 04/30/2022 12:21:53 06/08/19 23 06/08/2022 UA DIP CS STATU S color -advantus STRAW yellow Not Available [facility] [address] [place] [address] [address], [place], [address], 06/08/2022 11:00:44 06/08/19 23 06/08/2022 UA DIP CS STATU S appearance -advantus CLEAR clear Not Available [facility] [place] [facility] [address] [facility] [address], [place], [address], 06/08/2022 11:00:44 06/08/19 23 06/08/2022 UA DIP CS STATU S glucose -advantus NEGATI VE mg/dL negati ve Not Available [facility] [address] [place] [address] [address], [place], [address], 06/08/2022 11:00:44 06/08/19 23 06/08/2022 UA DIP CS STATU S bilirubin -advantus NEGATI VE negati ve Not Available [facility] [address] [place] [address] [address], [place], [address], 06/08/2022 11:00:44 06/08/19 23 06/08/2022 UA DIP CS STATU S ketones -advantus NEGATI VE mg/dL negati ve Not Available [facility] [address] [place] [address] [address], [place], [address], 06/08/2022 11:00:44 06/08/19 23 06/08/2022 UA DIP CS STATU S sp. gravity -advantus >=1.03 0 1.010- 1.025 Not Available [facility] [address] [facility] [address], [place], [address], 06/08/2022 11:00:44 06/08/19 23 06/08/2022 UA DIP CS STATU S pH -advantus 6.0 5.0-8. 0 Not Available [facility] [address] [facility] [address], [place], [address], 06/08/2022 11:00:44 06/08/19 23 06/08/2022 UA DIP CS STATU S protein -advantus >=300 mg/dL negati ve abnormal Not Available [facility] [address] [place] [address], [place], [address], 06/08/2022 11:00:44 06/08/19 23 06/08/2022 UA DIP CS STATU S urobilinogen -advantus 0.2 0.2 E.U./d L Not Available [facility] [address] [place] [address], [place], [address], 06/08/2022 11:00:44 06/08/19 23 06/08/2022 UA DIP CS STATU S nitrites -advantus NEGATI VE negati ve Not Available [facility] [address] [facility] [address], [place], [address], 06/08/2022 11:00:44 06/08/19 23 06/08/2022 UA DIP CS STATU S blood -advantus LARGE negati ve abnormal Not Available [facility] [address] [place] [address], [place], [address], 06/08/2022 11:00:44 06/08/19 23 06/08/2022 UA DIP CS STATU S leukocytes -advantus SMALL negati ve abnormal Not Available [facility] [address] [facility] [address], [place], [address], 06/08/2022 11:00:44 06/08/19 23 06/08/2022 UA DIP CS STATU S performed by ARIN Penn Not Available [facility] [address] [facility] [address], [place], [address], 06/08/2022 11:00:44 06/08/19 23 06/08/2022 UA DIP [...] for provi arash revie w. Not Available [facility] [address] [facility] [address], [place], [address], 06/08/2022 11:00:44 06/08/19 23 06/08/2022 UA MICRO SCOPI C U-WBC 50 - 100 [hpf] 0 - 2 abnormal Not Available [facility] [address] [facility] [address], [place], [address], 06/08/2022 11:00:47 06/08/19 23 06/08/2022 UA MICRO SCOPI C U-RBC 50 - 100 [hpf] 0 - 2 abnormal Not Available [facility] [address] [facility] [address], [place], [address], 06/08/2022 11:00:47 06/08/19 23 06/08/2022 UA MICRO SCOPI C bacteria Modera te [hpf] negati ve abnormal Not Available [facility] [address] [facility] [address], [place], [address], 06/08/2022 11:00:47 06/08/19 23 06/08/2022 UA MICRO [...] for provi arash revie w. Not Available [facility] [address] [facility] [address], [place], [address], 06/08/2022 11:00:47 06/08/19 23 06/08/2022 URINE CULTU [...] for provi arash revie w. Not Available [facility] [address] [facility] [address], [place], [address], 06/10/2022 13:41:16 09/07/19 23 09/06/2022 UA WITHO UT MICRO - CS URISC AN blood - uriscan NEGATI VE negati ve Not Available [facility] [address] [place] [address], [place], [address], 09/06/2022 12:40:06 09/07/19 23 09/06/2022 UA WITHO UT MICRO - CS URISC AN bilirubin - uriscan NEGATI VE mg/dL negati ve Not Available [facility] [address] [place] [address], [place], [address], 09/06/2022 12:40:06 09/07/19 23 09/06/2022 UA WITHO UT MICRO - CS URISC AN urobilinogen - uriscan NORMAL mg/dL normal Not Available [facility] [address] [facility] [address], [place], [address], 09/06/2022 12:40:06 09/07/19 23 09/06/2022 UA WITHO UT MICRO - CS URISC AN ketones - uriscan NEGATI VE mg/dL negati ve Not Available [facility] [address] [place] [address] [address], [place], [address], 09/06/2022 12:40:06 09/07/19 23 09/06/2022 UA WITHO UT MICRO - CS URISC AN protein - uriscan 100 mg/dL negati ve abnormal Not Available [facility] [address] [place] [address], [place], [address], 09/06/2022 12:40:06 09/07/19 23 09/06/2022 UA WITHO UT MICRO - CS URISC AN nitrites - uriscan NEGATI VE negati ve Not Available [facility] [address] [place] [address], [place], [address], 09/06/2022 12:40:06 09/07/19 23 09/06/2022 UA WITHO UT MICRO - CS URISC AN glucose - uriscan NEGATI VE mg/dL negati ve Not Available [facility] [address] [place] [address] [address], [place], [address], 09/06/2022 12:40:06 09/07/19 23 09/06/2022 UA WITHO UT MICRO - CS URISC AN pH - uriscan 6.50 5.00-9 .00 Not Available [facility] [address] [place] [address] [address], [place], [address], 09/06/2022 12:40:06 09/07/19 23 09/06/2022 UA WITHO UT MICRO - CS URISC AN sp. gravity - uriscan 1.03 1.01-1 .03 Not Available [facility] [address] [place] [address] [address], [place], [address], 09/06/2022 12:40:06 09/07/19 23 09/06/2022 UA WITHO UT MICRO - CS URISC AN leukocytes - uriscan NEGATI VE negati ve Not Available [facility] [address] [place] [address] [address], [place], [address], 09/06/2022 12:40:06 09/07/19 23 09/06/2022 UA WITHO UT MICRO - CS URISC AN color - uriscan YELLOW lt. yellow ;yello w Not Available [facility] [address] [place] [address] [address], [place], [address], 09/06/2022 12:40:06 09/07/19 23 09/06/2022 UA WITHO UT MICRO - CS URISC AN clarity - uriscan CLEAR clear Not Available [facility] [address] [place] [address] [address], [place], [address], 09/06/2022 12:40:06 09/07/19 23 09/06/2022 UA WITHO [...] for provi arash revie w. Not Available [facility] [address] [facility] [address], [place], [address], 09/06/2022 12:40:06 03/14/20 23 03/14/2023 UA WITHO UT MICRO - CS URISC AN blood - uriscan NEGATI VE negati ve Not Available [facility] [address] [facility] [address], [place], [address], 03/14/2023 16:30:11 03/14/20 23 03/14/2023 UA WITHO UT MICRO - CS URISC AN bilirubin - uriscan NEGATI VE mg/dL negati ve Not Available [facility] [address] [place] [address] [address], [place], [address], 03/14/2023 16:30:11 03/14/20 23 03/14/2023 UA WITHO UT MICRO - CS URISC AN urobilinogen - uriscan NORMAL mg/dL normal Not Available [facility] [address] [place] [address] [address], [place], [address], 03/14/2023 16:30:11 03/14/20 23 03/14/2023 UA WITHO UT MICRO - CS URISC AN ketones - uriscan NEGATI VE mg/dL negati ve Not Available [facility] [address] [place] [address] [address], [place], [address], 03/14/2023 16:30:11 03/14/20 23 03/14/2023 UA WITHO UT MICRO - CS URISC AN protein - uriscan 10 mg/dL negati ve abnormal Not Available [facility] [address] [place] [address] [address], [place], [address], 03/14/2023 16:30:11 03/14/20 23 03/14/2023 UA WITHO UT MICRO - CS URISC AN nitrites - uriscan NEGATI VE negati ve Not Available [facility] [address] [place] [address] [address], [place], [address], 03/14/2023 16:30:11 03/14/20 23 03/14/2023 UA WITHO UT MICRO - CS URISC AN glucose - uriscan NEGATI VE mg/dL negati ve Not Available [facility] [address] [place] [address] [address], [place], [address], 03/14/2023 16:30:11 03/14/20 23 03/14/2023 UA WITHO UT MICRO - CS URISC AN pH - uriscan 7.50 5.00-9 .00 Not Available [facility] [address] [place] [address], [place], [address], 03/14/2023 16:30:11 03/14/20 23 03/14/2023 UA WITHO UT MICRO - CS URISC AN sp. gravity - uriscan <=1.01 1.01-1 .03 Not Available [facility] [address] [place] [address] [address], [place], [address], 03/14/2023 16:30:11 03/14/20 23 03/14/2023 UA WITHO UT MICRO - CS URISC AN leukocytes - uriscan NEGATI VE negati ve Not Available [facility] [address] [place] [address] [address], [place], [address], 03/14/2023 16:30:11 03/14/20 23 03/14/2023 UA WITHO UT MICRO - CS URISC AN color - uriscan YELLOW lt. yellow ;yello w Not Available [facility] [address] [place] [address], [place], [address], 03/14/2023 16:30:11 03/14/20 23 03/14/2023 UA WITHO UT MICRO - CS URISC AN clarity - uriscan CLEAR clear Not Available [facility] [address] [place] [address], [place], [address], 03/14/2023 16:30:11 03/14/20 23 03/14/2023 UA WITHO [...] for provi arash revie w. Not Available [facility] [address] [place] [address] [address], [place], [address], 03/14/2023 16:30:11 Result Notes None recorded. Problems Name Problem SNOMED Code Status Onset Date Resolution Date Notes Provider Name and Address Organization Details Recorded Time Lower urinary tract symptoms due to benign prostatic hypertrophy 5314227377024 1 Active 2021 Lencho Walsh MD [address] [place] [address],[address] [place] [address], [address], [facility] 15:39:41 Slowing of urinary stream 95399396 Active 2021 Lencho Walsh MD [address] [place] [address],[address] [place] [address], [address], [facility] 2 15:39:42 Problem Notes None recorded. Procedures Surgical History Date Name Laterality Status Provider Name and Address Organization Details Recorded Time 023 Bladder Scan completed Nettie Mattson [facility] 03/14/2023 16:08:50 023 Bladder Scan completed Steven Kaur [facility] 09/06/2022 12:20:05 023 Bladder Scan completed Reina Silva [facility] 06/08/2022 10:49:12 Urine Culture completed Yuko Aguilareve [facility] 04/28/2022 11:40:57 Urinalysis completed Yuko Diana [facility] 04/28/2022 11:40:55 Diagnostic sigmoidoscopy completed Not Available Health Note 06/04/2022 16:15:21 Cystoscopy- male completed Lencho Walsh MD [address] [facility], [place], [address], [facility] 03/16/2022 15:39:19 022 Bladder Scan completed Nora Ferraro [facility] 03/16/2022 15:22:50 Bladder Scan completed Latha [place] [facility] 02/14/2022 14:24:[address] colonography screening [...] Updated DateTime 03/16/2022 172.72 cm Nora Ferraro [facility] 03/16/2022 15:13:18 Date Recorded Body height Body weight Body mass index (BMI) Provider Name and Address Organization Details Last Updated DateTime 06/08/2022 172.72 cm 555022.2489 45751 g 44.1 kg/m2 Not Available Health Note 06/08/2022 10:23:29 Date Recorded Body weight Body mass index (BMI) Body height Provider Name and Address Organization Details Last Updated DateTime 09/06/2022 759877.1846 08854 g 44.3 kg/m2 170.18 cm Not Available Health Note 09/06/2022 11:49:21 Date Recorded Body height Body mass index (BMI) Body weight Provider Name and Address Organization Details Last Updated DateTime 03/14/2023 170.18 cm 44.3 kg/m2 784419.64 g Nettie Mattson [facility] 03/14/2023 15:59:50 Social History Question Answer [...] Has Tobacco Cessation Counseling Been Provided? No [email or web address] Information not available 06/08/2022 How Many Years Have You Smoked Tobacco? 32 [email or web address] Information not available 03/13/2023 Do You Or Have You Ever Used Any Other Forms Of Tobacco Or Nicotine? No [email or web address] Information not available 03/14/2023 How Many Days In The Past Year Have You Consumed 5 Or More Drinks? 0 [email or web address] Information no t available 03/13/2023 Sex: Unknown Functional Status None recorded. Mental Status None recorded. Family History Relationship Description Onset Age of this Age Resolved Age Notes LastModified by Organization Details LastModified Time Father Family history of cancer of colon [email or web address] Not available 02/14 14:01:42 Mother Family history of Hypertension Not available 14:01:52 Medical History Condition Response Other N High Blood Pressure Y Kidney Stones N Lung Disease N Depression N GERD/Acid Reflux N Sexually Transmitted Infection N Cancer N High Cholesterol N Diabetes N Bleeding Disorder N Heart Disease N Immunizations Vaccine Type Date Status Note Provider Nam e and Address Organization Details Recorded Time Influenza, high-dose, trivalent, PF 6 completed MARIELOS Linares [facility] 03/16/2022 15:13:26 Influenza, split virus, trivalent, preservative 9 completed Nora santoyo, [facility] 03/16/2022 15:13:26 pneumococcal polysaccharide PPV23 7 completed Nora santoyo, [facility] 03/16/2022 15:13:26 Influenza, high-dose, trivalent, PF 5 completed Nora santoyo, [facility] 03/16/2022 15:13:26 Influenza, adjuvanted, trivalent, PF 8 completed Nora santoyo, [facility] 03/16/2022 15:13:26 zoster live 2 completed Nora santoyo, [facility] 03/16/2022 15:13:26 Influenza, split virus, trivalent, preservative 1 completed Nora santoyo, [facility] 03/16/2022 15:13:26 COVID-19, mRNA, LNP-S, PF, 100 mcg/0.5mL dose or 50 mcg/0.25mL dose 2 completed Nora santoyo, [facility] 03/16/2022 15:13:26 Novel [id number], all formulations 9 completed Nora santoyo, [facility] 03/16/2022 15:13:26 Influenza, split virus, trivalent, preservative 3 completed Nora santoyo, [facility] 03/16/2022 15:13:26 Influenza, split virus, trivalent, preservative 8 completed Nora santoyo, [facility] 03/16/2022 15:13:26 Influenza, split virus, trivalent, preservative 7 completed Nora santoyo, [facility] 03/16/2022 15:13:26 Tdap 7 completed Nora santoyo, [facility] 03/16/2022 15:13:26 influenza, unspecified formulation 7 completed Nora santoyo, [facility] 03/16/2022 15:13:26 COVID-19, mRNA, LNP-S, PF, 100 mcg/0.5mL dose or 50 mcg/0.25mL dose 1 completed Nora santoyo, [facility] 03/16/2022 15:13:26 COVID-19, mRNA, LNP-S, bivalent, PF, 50 mcg/0.5 mL or 25mcg/0.25 mL dose 2 completed Nora santoyo, [facility] 03/16/2022 15:13:26 pneumococcal polysaccharide PPV23 8 completed Nora santoyo, [facility] 03/16/2022 15:13:26 COVID-19, mRNA, LNP-S, PF, 100 mcg/0.5mL dose or 50 mcg/0.25mL dose 1 completed Nora santoyo, [facility] 03/16/2022 15:13:26 Influenza, split virus, trivalent, preservative 2 completed Nora santooy, [facility] 03/16/2022 15:13:26 Influenza, adjuvanted, quadrivalent, PF 2 completed Nora santoyo, [facility] 03/16/2022 15:13:26 Influenza, high-dose, quadrivalent, PF 1 completed Nora santoyo, [facility] 03/16/2022 15:13:26 Influenza, high-dose, trivalent, PF 8 completed Nora santoyo, [facility] 03/16/2022 15:13:26 Influenza, adjuvanted, trivalent, PF 0 completed Nora santoyo, [facility] 03/16/2022 15:13:26 Td (adult), 2 Lf tetanus toxoid, preservative free, adsorbed 7 completed Nora santoyo, [facility] 03/16/2022 15:13:26 [facility] 15:13:26 Influenza, adjuvanted, trivalent, PF 9 [facility] 15:13:27 COVID-19, mRNA, LNP-S, PF, 100 mcg/0.5mL dose or 50 mcg/0.25mL dose 1 [facility] 15:13:27 Influenza, high-dose, trivalent, PF 7 completed Nora Ferraro null, [facility] 03/16/2022 15:13:27 Influenza, split virus, trivalent, preservative 0 completed Nora santoyo, [facility] 03/16/2022 15:13:27 Influenza, split virus, trivalent, preservative 6 [facility] 15:13:27 SARS-COV-2 (COVID-19) vaccine, UNSPECIFIED 2 completed Not Available [facility] 06/08/2022 10:23:54 influenza, unspecified formulation 2 completed Not Available [facility] 06/08/2022 10:23:54 pneumococcal, unspecified formulation 0 completed Not Available [facility] 06/08/2022 10:23:54 influenza, unspecified formulation 2 completed [...] SNOMED-CT Code Diagnosis ICD10 Code Diagnosis Note [id number] [facility] [address] 02/14/2022 13:32:03 02/14/2022 15:18:20 Lower urinary tract symptoms due to benign prostatic hypertrophy [id number] 9101 N40.1 Kidney stone 60715270 N2 0.0 [id number] [facility] [address] [address] 03/16/2022 15:08:18 03/16/2022 15:53:06 Lower urinary tract symptoms due to benign prostatic hypertrophy [id number] 9101 N40.1 Slowing of urinary stream 59930368 R39.12 [id number] Yuko Ortiz [address] [address] 04/28/2022 11:23:48 04/28/2022 12:09:09 Lower urinary tract symptoms due to benign prostatic hypertrophy 7020864280 9101 N40.1 [id number] MD Curt SommerAmado [address] [address] 06/08/2022 10:20:51 06/08/2022 11:55:56 Lower urinary tract symptoms due to benign prostatic hypertrophy [id number] 9101 N40.1 Slowing of urinary stream [id number] R39.12 [id number] MD Susanna Sommer [address] [place] [address] [phone] 09/06/2022 11:48:25 09/06/2022 12:45:34 Lower urinary tract symptoms due to benign prostatic hypertrophy [id number] 9101 N40.1 Slowing of urinary stream [id number] R39.12 [id number] MD Susanna Sommer [address] [place] [address] [phone] 03/14/2023 15:56:05 03/14/2023 16:19:52 Lower urinary tract symptoms due to benign prostatic hypertrophy [id number] 9101 N40.1 Slowing of urinary stream [id number] R39.12 Health Concerns Section Related Observation LastModified by Organization Detai ls LastModified Time None Recorded Concern Status LastModified by Organization Details LastModified Time None Recorded Advance Directives Directive None Recorded Payers Encounter Date Sequence Insurance Name Policy Number Policy Zaragoza Covered Member ID Zaragoza Member ID Guarantor Name 03/16/2022 1 [place] [employer] [place] COST [id number] Sulaiman Mendiola Aldahl [id number] Sulaiman Mendiola Aldahl 04/28/2022 1 [place] CO[place] [id number] Sulaiman Mendiola Aldahl [id number] Sulaiman Mendiola Aldahl 06/08/2022 1 [place] COST [id number] Sulaiman Mendiola Aldahl [id number] Sulaiman Mendiola Aldahl 09/06/2022 1 [place] CO[place] [id number] Sulaiman Torresahl [id number] Sulaiman Mendiola Aldahl 03/14/2023 1 [place] [place] COST [id number] Sulaiman Torresahl [id number] Sulaiman Mendiola Aldahl Notes Date Note Type Note Provider Name and Address Organization Details Recorded Time 03/16/2022 text/html Per visit with RICO Kruger om on 02/14/22:Patient is a 72-year-old male that presents today for UTI, BPH, kidney stones. Patient had a hospitalization at [facility] from 01/10-01/12. Patient was thought to be [...] was last seen by Dr. Adam at [facility] in 2017, has not followed up [...] any blood thinners anymore. Lencho Walsh MD [address] [place] [address],[address], [place], [phone] 03/16/2022 15:52:09 06/08/2022 text/html Per visit with RICO Kruger om on 02/14/22:Patient is a 72-year-old male that presents today for UTI, BPH, kidney stones. Patient had a hospitalization at [facility] from 01/10-01/12. Patient was thought to be [...] was last seen by Dr. Adam at [facility] in 2016, has not followed up [...] but that's improving. Lencho Walsh MD [address] [facility],[address], [place], [phone], [facility] 06/08/2022 10:54:16 09/06/2022 text/html Per visit with RICO Kruger om on 02/14/22:Patient is a 72-year-old male that presents today for UTI, BPH, kidney stones. Patient had a hospitalization at [facility] from 01/10-01/12. Patient was thought to be [...] was last seen by Dr. Adam at [facility] in 2016, has not followed up [...] takes a diuretic. Lencho Walsh MD [address] [facility],[address], [place], [address], [facility] 09/06/2022 12:34:28 03/14/2023 text/html Per visit with RICO Kruger om on 02/14/22:Patient is a 72-year-old male that presents today for UTI, BPH, kidney stones. Patient had a hospitalization at [facility] from 01/10-01/12. Patient was thought to be [...] was last seen by Dr. Adam at [facility] in 2016, has not followed up [...] takes his torsemide. Lencho Walsh MD [address] [facility],[address], [place], [address], [facility] 03/14/2023 16:16:48
--- OUTSIDE RECORDS SUMMARY | 2024-07-09 17:45 | XMS_ITS | Clinical Summary ---
Author Organization [facility] Address [address] [place] [id number] Care Team Providers Care Forming Roll Operator Name Role Phone Jose Linares MD Primary [...] type, unspecified whether angina present, unspecified whether [place] or transplanted heart Chew 1 Tablet (81 [...] Encounters Date Type Department Care Team Description 07/05/2024 Orders Only [facility] Scanner 1 scan: (1-Ord) [facility], CT ABDOMEN PELVIS W CON, 07/05/2024 06/26/2024 Refill [facility] [address] [place] [address] VoJose menezes MD Refill Request (Citalopram) 04/15/2024 Refill [facility] [address] [place] [address] VotelJose MD Refill Request (Pantoprazole) from Last 3 Months Immunizations Immunization Administration Dates Next Due AMB Influenza, IIV3 (Age >=3 years)(Flu Clinic Only) 02/26/2013 COVID-19 vaccine (Moderna 100mcg/0.5mL) NIDIA RUIZ 10/28/2021,08/26/2021,02/20/2021,07/27,06/29/2020 COVID-19 vaccine (Pfizer-Bio NTech 30mcg/0.3mL) 12YO+ BIVALENT NIDIA RUIZ 09/05/2022 COVID-19 vaccine (Pfizer-Bio NTech 30mcg/0.3mL) NIDIA RUIZ 08/05/2022,10/28/2021 Influenza A (H1N1), Inactivated 04/16/2009 Influenza [...] on file 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 Gender Identity Not on file Sexual Orientation Not on file Occupation Industry Job Start Date Job End Date Not on file Not on file Not on file Not on file [employer] Not on file Not on file Not [...] Care Team (Late st Contact Info) Description 07/10/2024 2:30 PM CDT Office Visit [facility] [address] [place] [address] Jose Linares MD [address] [place] [address] Health Maintenance Due Date Last Done Comments Hepatitis C screening for ag e 18-79 01/06/1968 COVID-19 vaccine series (2023- season) 2023 01/26/2023, 09/05/2022, 08/05/2022, Additional history exists Influenza Vaccine (#1) 2023 , 01/13/2023, 02/13/2022, Additional history exists Zoster [...] Completed 01/26/2023 Medical Devices Implanted Type Area Recovery Operator Helper Device Identifier Shelf Expiration Date Model / Serial / Lot Amplatz Ureteral Stent Set Implanted:Qty: 1 on 06/02/2013 at [facility] [id number] / / Description:AMPLATZ URETERAL STENT SET Procedures Procedure Name Priority Date/Time Associated Diagnosis Comments SCAN-CT INTERPRETATION 12:00 AM 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 Comment: Cholesterol, Total Reference Ranges Desirable <200 mg/dL Borderline 200-239 mg/dL High >=240 mg/dL TRIGLYCERIDES 96 <150 mg/dL 12/13/2023 10:46 PM CDT [facility] HDL CHOLESTEROL 54 >40 mg/dL 10:46 PM CDT [facility] NON-HDL CHOLESTEROL 80 <145 mg/dl 12/13/2023 10:46 PM CDT [facility] CHOL/HDL RATIO 2.48 <4.50 12/13/2023 10:46 PM CDT [facility] LDL CHOLESTEROL 61 <=130 mg/dL 12/13/2023 10:46 PM CDT [facility] VLDL CHOLESTEROL 19 <=30 mg/dL 12/13/2023 10:[address] [facility] PROVIDER ORDERED STATUS RANDOM 12/13/2023 10:46 PM CDT [facility] Blood BLOOD SPECIMEN / Unknown Venipuncture / Unknown 12/13/2023 1:45 PM CDT 12/13/2023 1:45 PM CDT us Jose Linares MD CHEMISTRY Final Re sult [facility] [address] [place] [address], [place] * CTA CHEST ABDOMEN PELVIS AORTIC [...] CHEST ABDOMEN PELVIS AORTIC DISSECTION W LOCATION: [facility] MEDICAL [facility]AG[facility] DATE: 10/26/2022 INDICATION: Anemia. GI bleed. COMPARISON: 01/10/2022 TECHNIQUE: CT angiogram chest abdomen pelvis during arterial phase of injection of IV contrast. 2D and 3D MIP reconstructions were performed by the production control technologist. Dose reduction techniques were used. CONTRAST: [...] CHEST ABDOMEN PELVIS AORTIC DISSECTION W LOCATION: [facility] MEDICAL [facility]AG[facility] DATE: 10/26/2022 INDICATION: Anemia. GI bleed. COMPARISON: 01/10/2022 TECHNIQUE: CT angiogram chest abdomen pelvis during arterial phase ofinjection of IV contrast. 2D and 3D MIP reconstructions were performed bythe production control technologist. Dose reduction techniques were used. CONTRAST: [...] ult * COLONOSCOPY DIAGNOSTIC (04/03/2022 12:00 AM HOME ECONOMICS TEACHER) us Jose Linares MD GI PROCEDURE ORD [...] A HB ONLY BLUE CROSS MEDICARE ADVANTAGE MR Advance Directives * Full Code (Latest Code [...] Not DiscussedPer Advance Care Plan Care Teams Forming Roll Operator Relationship Specialty Start Date End Date Votel, Jose Bateman MD [address] [place] [address] PCP - General Family Practice 08/17/11
--- NOTE | 2024-07-09 18:03 | ED.GENADULT ---
HPI - General Adult General Date Seen: 07/09/24 Chief complaint: Weakness Stated complaint: Elevated heartrate, L arm numbness Time Seen by Provider: 07/09/24 17:46 History of Present Illness HPI narrative: 74-year-old gentleman brought to the ER today by his ex-. 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 He was seen here in the ER 4 days ago on 07/05. According to those notes he had presented for left lower quadrant abdominal pain that began the day prior to his visit. In the ER blood pressure was 160/63. Respiratory rate 20. Pulse 55. O2 97% room air. Temp 96.8? Lab workup showed WBC 6.4, hemoglobin 10.1, platelet 167. Sodium 128, potassium 3.7, chloride 94, bicarb 24, anion gap 10, BUN 15, creatinine 0.7, glucose 77, total bilirubin 0.7, AST 21, ALT 11, troponin I was less than 0.01. Urinalysis was normal save for 3+ protein. Repeat troponin I was 0.02. CT abdomen/pelvis 07/05/2024 IMPRESSION: 1. Acute uncomplicated sigmoid diverticulitis. 2. Diffuse gastric antral wall thickening and hyperemia. Recommend correlation for clinical symptoms of gastritis. If not previously evaluated, recommend further assessment with gastroenterology as underlying malignancy can have a similar appearance. He was discharged home with prescription for Cipro and Flagyl. Recommended clear liquid diet until pain improves. Acetaminophen as needed for pain. Patient was discharged home from the ER. History from his ex- and from the patient is that he has been taking his antibiotics. He has been taking his Cipro twice a day on Sunday, Sunday, Sunday, and did take his 1st dose today. He also took the Flagyl 3 times daily for Sunday and Sunday but on Sunday began to feel nausea. He may not have gotten all 3 doses of his Flagyl and yesterday and vomited after his dose of Flagyl this morning as well. He had been sticking to a mostly clear diet. He has not had any fevers. He says his left side pain actually got better and is basically back to normal since yesterday. This morning the patient was just feeling generally weak, a bit unwell. He went to the bathroom and actually urinated and passed to formed small brown stools. No black or bloody stool. He then began to feel very weak and dizzy. Not vertigo but just feeling very weak in general, almost presyncopal. He had an episode of blurry vision but did not black out or lose vision. He is not having any focal weakness. He just feels unwell today. I note that he looks quite pale and he says that he has been told this multiple times and he is always quite pale. His X does not feel that he has any paler than normal. He did have a home blood pressure cuff and measured a blood pressure of 89/50 something at home. Pulse was also elevated at about 132 at home. His asks notes that he stopped taking all of his regular prescription medications after he got discharged from the ER on Sunday, apparently, he was worried that they might interact with his antibiotics. Current med list includes metformin 1000 mg p.o. b.i.d., lisinopril 20 mg daily, atorvastatin 40 mg daily, amlodipine 5 mg daily, aspirin 81 mg daily, metoprolol 50 mg daily, Protonix 40 mg daily, spironolactone 25 mg daily, torsemide 5 mg daily Related Data Home Medications ?Medication ?Instructions ?Recorded ?Confirmed atorvastatin 40 mg tablet 40 mg PO DAILY 01/10/22 07/09/24 citalopram 10 mg tablet 10 mg PO DAILY 01/10/22 07/09/24 metformin 1,000 mg tablet 1,000 mg PO BIDWM 01/10/22 07/09/24 metoprolol succinate 50 mg 50 mg PO DAILY 01/10/22 07/09/24 tablet,extended release 24 hr cholecalciferol (vitamin D3) 25 1,000 unit PO DAILY 01/23/22 02/08/24 mcg (1,000 unit) tablet pantoprazole 40 mg tablet,delayed 40 mg PO DAILY 01/23/22 02/08/24 release acetaminophen 500 mg tablet 1,000 mg PO Q6H PRN 01/30/22 02/08/24 lisinopril 10 mg tablet 20 mg PO DAILY 09/26/22 07/09/24 amlodipine 5 mg tablet 5 mg PO DAILY 02/08/24 07/09/24 spironolactone 25 mg tablet 25 mg PO DAILY 02/08/24 02/08/24 Previous Rx's ?Medication ?Instructions ?Recorded aspirin 81 mg chewable tablet 81 mg PO DAILY #30 tabs 09/27/22 (Children's Aspirin) loperamide 2 mg capsule 2 mg PO BID PRN #60 caps 09/27/22 torsemide 5 mg tablet 5 mg PO DAILY #30 tabs 09/27/22 polyethylene glycol 3350 17 17 g PO BID PRN constipation #238 02/08/24 gram/dose oral powder (Miralax) grams ciprofloxacin HCl 500 mg tablet 500 mg PO BID 10 days #20 tabs 07/05/24 metronidazole 500 mg tablet 500 mg PO TID 10 days #30 tabs 07/05/24 Allergies Allergy/AdvReac Type Severity Reaction Status Date / Time No Known Drug Allergies Allergy Verified 07/05/24 16:11 [facility] Medical History Metabolic encephalopathy ?G93.41 - Metabolic encephalopathy (ICD-10) Hyponatremia ?E87.1 - Hypo-osmolality and hyponatremia (ICD-10) Acute right-sided weakness ?R53.1 - Weakness (ICD-10) Medical non-compliance ?Z91.199 - Patient's noncompliance with other medical treatment and regimen due to unspecified reason (ICD-10) Unintentional weight loss ?R63.4 - Abnormal weight loss (ICD-10) Atrial arrhythmia ?I49.8 - Other specified cardiac arrhythmias (ICD-10) Abnormal CT of brain ?R90.89 - Other abnormal findings on diagnostic imaging of central nervous system (ICD-10) Episode of gagging ?R19.8 - Other specified symptoms and signs involving the digestive system and abdomen (ICD-10) Seborrhea of face ?L21.9 - Seborrheic dermatitis, unspecified (ICD-10) Nausea ?R11.0 - Nausea (ICD-10) Microcytic anemia ?D50.9 - Iron deficiency anemia, unspecified (ICD-10) Steroid-induced hyperglycemia ?R73.9 - Hyperglycemia, unspecified (ICD-10) ?T38.0X5A - Adverse effect of glucocorticoids and synthetic analogues, initial encounter (ICD-10) Pituitary adenoma with extrasellar extension ?D35.2 - Benign neoplasm of pituitary gland (ICD-10) Benign non-nodular prostatic hyperplasia with lower urinary tract symptoms ?N40.1 - Benign prostatic hyperplasia with lower urinary tract symptoms (ICD-10) ASHD (arteriosclerotic heart disease) ?I25.10 - Atherosclerotic heart disease of [place] coronary artery without angina pectoris (ICD-10) Kidney stones ?N20.0 - Calculus of kidney (ICD-10) Aortic stenosis ?I35.0 - Nonrheumatic aortic (valve) stenosis (ICD-10) MRSA bacteremia ?R78.81 - Bacteremia (ICD-10) ?B95.62 - Methicillin resistant Staphylococcus aureus infection as the cause of diseases classified elsewhere (ICD-10) Postoperative hypotension ?I95.81 - Postprocedural hypotension (ICD-10) Morbid obesity ?E66.01 - Morbid (severe) obesity due to excess calories (ICD-10) Hyperlipidemia ?E78.5 - Hyperlipidemia, unspecified (ICD-10) Abnormal colonoscopy ?R93.3 - Abnormal findings on diagnostic imaging of other parts of digestive tract (ICD-10) Hx of colonic polyps ?Z86.010 - Personal history of colonic polyps (ICD-10) Sleep apnea ?G47.30 - Sleep apnea, unspecified (ICD-10) Malignant melanoma of right upper extremity ?C43.61 - Malignant melanoma of right upper limb, including shoulder (ICD-10) Hypertension ?I10 - Essential (primary) hypertension (ICD-10) Diabetes mellitus type 2 in obese ?E11.69 - Type 2 diabetes mellitus with other specified complication (ICD-10) ?E66.9 - Obesity, unspecified (ICD-10) Surgical History History of transurethral resection of prostate ?Z98.890 - Other specified postprocedural states (ICD-10) ?Z90.79 - Acquired absence of other genital organ(s) (ICD-10) 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) H/O vasectomy ?Z98.52 - Vasectomy status (ICD-10) S/P skin biopsy ?Z98.890 - Other specified postprocedural states (ICD-10) H/O nephrostomy H/O lithotripsy ?Z98.890 - Other specified postprocedural states (ICD-10) S/P laparoscopic sleeve gastrectomy ?Z98.84 - Bariatric surgery status (ICD-10) History of total right hip arthroplasty ?Z96.641 - Presence of right artificial hip joint (ICD-10) H/O umbilical hernia repair ?Z98.890 - Other specified postprocedural states (ICD-10) ?Z87.19 - Personal history of other diseases of the digestive system (ICD-10) H/O hemorrhoidectomy ?Z98.890 - Other specified postprocedural states (ICD-10) Hx of colonoscopy ?Z98.890 - Other specified postprocedural states (ICD-10) H/O right hemicolectomy ?Z90.49 - Acquired absence of other specified parts of digestive tract (ICD-10) Hx of appendectomy ?Z90.49 - Acquired absence of other specified parts of digestive tract (ICD-10) Family History Father Colon cancer Obesity Sister Diabetes Obesity Mother Heart disease High blood pressure Hyperlipidemia Obesity Stroke Social History Narrative: [place]. Requests that we talk with his ex- about current health issues. Son is also actively involved in assisting his care. Wishes to be full code. He does not smoke. Highest level of school completed/degree received: Associate degree: occupational, technical, vocational program Smoking Status: Former smoker What tobacco products do you use: cigarettes Years smoked: 30 Smoking quit date/years: >15 years ago Do you use any of these nicotine containing products: None Second hand tobacco smoke exposure: No How often do you have a drink containing alcohol: 2-4 times a month Alcohol type: beer How many standard drinks containing alcohol do you have on a typical day: 1 or 2 How often do you have six or more drinks on one occasion: Less than monthly AUDIT-C Alcohol total score: 3 Non-prescribed substance use: denies use Caffeine: Yes (3-4 daily) Do you think of yourself as: straight/heterosexual Gender Identity: male service: No Exam Const: Vital Signs, click to edit/add: Vital Signs - 24 hr 07/09/24 17:53 07/09/24 18:04 07/09/24 18:05 Pulse Rate Pulse Rate [Pulse Oximeter] 55 L Respiratory Rate 22 18 19 Blood Pressure 118/87 Blood Pressure [Ri ght Upper Arm] 89/57 L Pulse Oximetry 100 Oxygen Delivery Me thod Room Air 07/09/24 18:15 07/09/24 18:30 07/09/24 18:30 Pulse Rate Pulse Rate [Pulse Oximeter] 130 H Respiratory Rate 17 23 Blood Pressure Blood Pressure [Ri ght Upper Arm] Pulse Oximetry Oxygen Delivery Me thod 07/09/24 18:41 07/09/24 18:43 07/09/24 18:45 Pulse Rate Pulse Rate [Pulse Oximeter] Respiratory Rate 14 7 L 24 Blood Pressure Blood Pressure [Ri ght Upper Arm] Pulse Oximetry Oxygen Delivery Me thod 07/09/24 18:50 07/09/24 18:53 07/09/24 18:54 Pulse Rate Pulse Rate [Pulse Oximeter] 125 H Respiratory Rate 13 7 L Blood Pressure 86/54 L 94/57 L Blood Pressure [Ri ght Upper Arm] Pulse Oximetry Oxygen Delivery Me thod 07/09/24 19:01 07/09/24 19:15 07/09/24 19:22 Pulse Rate 126 H Pulse Rate [Pulse Oximeter] Respiratory Rate 10 L 26 H 17 Blood Pressure 92/53 L 111/67 Blood Pressure [Ri ght Upper Arm] Pulse Oximetry 75 L Oxygen Delivery Me thod 07/09/24 19:30 07/09/24 19:41 07/09/24 19:45 Pulse Rate 127 H 127 H 129 H Pulse Rate [Pulse Oximeter] Respiratory Rate 13 20 8 L Blood Pressure 103/59 L Blood Pressure [Ri ght Upper Arm] Pulse Oximetry 95 98 97 Oxygen Delivery Me thod 07/09/24 19:58 07/09/24 20:39 07/09/24 20:42 Pulse Rate 121 H Pulse Rate [Pulse Oximeter] 124 H Respiratory Rate 38 H 47 H Blood Pressure 97/65 Blood Pressure [Ri ght Upper Arm] Pulse Oximetry 96 Oxygen Delivery Me thod 07/09/24 20:45 07/09/24 21:00 07/09/24 21:01 Pulse Rate 131 H 124 H 125 H Pulse Rate [Pulse Oximeter] Respiratory Rate 37 H 66 H 29 H Blood Pressure 89/72 L Blood Pressure [Ri ght Upper Arm] Pulse Oximetry 100 99 100 Oxygen Delivery Me thod 07/09/24 21:02 07/09/24 21:15 07/09/24 21:21 Pulse Rate 123 H 118 H 122 H Pulse Rate [Pulse Oximeter] Respiratory Rate 34 H 3 L Blood Pressure 89/62 L Blood Pressure [Ri ght Upper Arm] Pulse Oximetry 99 100 99 Oxygen Delivery Me thod 07/09/24 21:22 07/09/24 21:30 07/09/24 21:45 Pulse Rate 125 H 127 H Pulse Rate [Pulse Oximeter] Respiratory Rate 13 Blood Pressure 92/65 Blood Pressure [Ri ght Upper Arm] Pulse Oximetry 98 100 Oxygen Delivery Me thod 07/09/24 21:49 07/09/24 21:52 07/09/24 22:00 Pulse Rate 122 H 127 H 129 H Pulse Rate [Pulse Oximeter] Respiratory Rate 12 13 11 L Blood Pressure 81/52 L 83/65 L Blood Pressure [Ri ght Upper Arm] Pulse Oximetry 97 98 100 Oxygen Delivery Me thod 07/09/24 22:02 07/09/24 22:12 07/09/24 22:15 Pulse Rate 123 H 123 H 119 H Pulse Rate [Pulse Oximeter] Respiratory Rate 18 18 23 Blood Pressure 97/61 79/40 L 103/61 Blood Pressure [Ri ght Upper Arm] Pulse Oximetry 98 97 93 Oxygen Delivery Me thod 07/09/24 22:16 07/09/24 22:17 07/09/24 22:20 Pulse Rate 118 H 117 H 125 H Pulse Rate [Pulse Oximeter] Respiratory Rate 26 H 14 21 Blood Pressure 84/49 L 71/54 L Blood Pressure [Ri ght Upper Arm] Pulse Oximetry 96 100 98 Oxygen Delivery Me thod 07/09/24 22:21 07/09/24 22:25 07/09/24 22:30 Pulse Rate 114 H 128 H 115 H Pulse Rate [Pulse Oximeter] Respiratory Rate 13 15 12 Blood Pressure 93/50 L Blood Pressure [Ri ght Upper Arm] Pulse Oximetry 99 100 95 Oxygen Delivery Me thod 07/09/24 22:32 07/09/24 22:45 07/09/24 22:47 Pulse Rate 118 H 110 H 115 H Pulse Rate [Pulse Oximeter] Respiratory Rate 7 L 9 L 27 H Blood Pressure 90/41 L 85/62 L Blood Pressure [Ri ght Upper Arm] Pulse Oximetry 96 96 90 Oxygen Delivery Me thod 07/09/24 22:51 07/09/24 22:52 07/09/24 22:55 Pulse Rate 76 84 101 H Pulse Rate [Pulse Oximeter] Respiratory Rate 8 L 13 9 L Blood Pressure 106/63 93/65 Blood Pressure [Ri ght Upper Arm] Pulse Oximetry 84 L 99 94 Oxygen Delivery Me thod 07/09/24 23:00 07/09/24 23:01 07/09/24 23:08 Pulse Rate 105 H 103 H 76 Pulse Rate [Pulse Oximeter] Respiratory Rate 14 14 19 Blood Pressure 79/59 L 106/57 L Blood Pressure [Ri ght Upper Arm] Pulse Oximetry 96 96 99 Oxygen Delivery Me thod 07/09/24 23:09 07/09/24 23:15 07/09/24 23:17 Pulse Rate 106 H 102 H 103 H Pulse Rate [Pulse Oximeter] Respiratory Rate 16 10 L 15 Blood Pressure 112/57 L Blood Pressure [Ri ght Upper Arm] Pulse Oximetry 94 89 96 Oxygen Delivery Me thod 07/09/24 23:30 07/09/24 23:32 07/09/24 23:33 Pulse Rate 84 79 78 Pulse Rate [Pulse Oximeter] Respiratory Rate 11 L 18 22 Blood Pressure 104/52 L Blood Pressure [Ri ght Upper Arm] Pulse Oximetry 97 95 95 Oxygen Delivery Me thod 07/09/24 23:45 07/09/24 23:47 Pulse Rate 80 75 Pulse Rate [Pulse Oximeter] Respiratory Rate 32 H 12 Blood Pressure 108/49 L Blood Pressure [Ri ght Upper Arm] Pulse Oximetry 95 97 Oxygen Delivery Me thod Course Course ED Course: Multiple bedside rechecks to recheck heart rate, blood pressure. Mental status remained normal. Vital Signs Vital signs: Initial Vital Signs Pulse Rate 55 L 07/09/24 17:53 Respiratory Rate 22 07/09/24 17:53 Blood Pressure 89/57 L 07/09/24 17:53 Blood Pressure Mean 67 L 07/09/24 17:53 Pulse Oximetry 100 07/09/24 17:53 Oxygen Delivery Method Room Air 07/09/24 17:53 Vital Signs Pulse Rate 55 L 07/09/24 17:53 Respiratory Rate 22 07/09/24 17:53 Blood Pressure 89/57 L 07/09/24 17:53 Pulse Oximetry 100 07/09/24 17:53 Oxygen Delivery Method Room Air 07/09/24 17:53 Pulse Rate 75 07/09/24 23:47 Respiratory Rate 12 07/09/24 23:47 Blood Pressure 108/49 L 07/09/24 23:47 Pulse Oximetry 97 07/09/24 23:47 Oxygen Delivery Method Room Air 07/09/24 17:53 Medications Administered Medications: Generic Name Dose Route Start Last Admin Trade Name Freq PRN Reason Stop Dose Admin Pantoprazole Sodium 80 mg/ 100 mls @ 10 mls/hr 07/09/24 21:30 07/09/24 21:55 Sodium Chloride IVPB 10 mls/hr Q10H JOSE Administration Discontinued Medications Generic Name Dose Route Start Last Admin Trade Name Freq PRN Reason Stop Dose Admin Sodium Chloride 1,000 mls @ 1,000 mls/hr 07/09/24 19:00 07/09/24 20:42 0.9 % Sodium Chloride 1000 Ml IV 07/09/24 19:59 Infused .Q1H JOSE Infusion Magnesium Sulfate 2 gm in 50 mls @ 25 mls/hr 07/09/24 19:41 07/09/24 22:42 Magnesium Iv IVPB 07/09/24 21:40 Infused ONCE ONE Infusion Piperacillin Sod/Tazobactam 100 mls @ 200 mls/hr 07/09/24 21:17 07/09/24 22:54 Sod 4.5 gm/ Sodium Chloride IVPB 07/09/24 21:18 Infused ONCE ONE Infusion Lactated Ringer's 1,000 mls @ 1,000 mls/hr 07/09/24 21:17 07/09/24 22:54 Lactated Ringers 1000 Ml IV 07/09/24 22:16 Infused .Q1H ONE Infusion Sodium Chloride 1,000 mls @ 1,000 mls/hr 07/09/24 22:45 07/10/24 00:10 0.9 % Sodium Chloride 1000 Ml IV 07/09/24 23:44 Infused .Q1H JOSE Infusion Ondansetron HCl 4 mg 07/09/24 21:26 07/09/24 22:21 Ondansetron 2 Mg/Ml Inj IVP 07/09/24 21:27 4 mg ONCE ONE Administration Medical Decision Making MDM Narrative Medical decision making narrative: Cardiac. Presents with regular wide complex tachycardia rate of 123. Of note, 1st pulse at triage was 55, however this may have been erroneous. Patient reports that he had an elevated heart rate at home on his blood pressure cuff. I think this is sinus tachycardia as I believe there visible P-waves in lead V1. However there may also be some retrograde P waves visible in leads 2, 3. Differential includes atrial flutter as well. He has no history of atrial flutter diagnosed and is not anticoagulated. He is not feeling the palpitations and therefore true onset of this tachycardia is not known. We do know that when he was in the ER the other night he had a sinus rhythm with a first-degree AV block. In review of his old EKGs I see that he had a similar tachycardia on Sep 25 2022 when he was here in the ER. At that time diagnosed as sinus tach. Here in the ER our initial impression with this was probably sinus tach. However really did not respond much to IV fluids. Heart rate came down from about 130-125 and then back up to 130. He then had an episode where he abruptly seemed to changed from / down to 75 and while he was at 75 he clearly had P waves. He then abruptly went back up to 111 and then back up to 120. Serial EKGs were obtained. I think actually his tachycardia is probably due to paroxysmal atrial fibrillation or atrial flutter. Presentation, blood pressure was too low to initiate any rate control. After fluids he actually converted back to sinus and currently has rates in the 70s. He has no previous diagnosis of atrial fibrillation or flutter. Given his other active problems, in particular anemia with potential stable upper GI bleed it is not safe to initiate anticoagulation. With the tachycardia he did have some low blood pressure, typically in the 90 systolic over 50s to 70s diastolic. At times blood pressure would range up to about 100-120 systolic. Lowest blood pressure here in the ER was 89/72. After completing his 3 L of IV fluid heart rate is now in the 70s and he is consistently maintaining sinus rhythm. Blood pressures come up from a in the 90/50 range to the 100-60 range. Repeat lactic acid is trending down. Initial Troponin is negative. Second troponin is weakly positive at 0.09. I suspect this is likely related to his tachycardia N terminal proBNP is elevated at 1700. However chest x-ray does not show any signs of pulmonary edema (read by radiology only atelectasis). He is not having any peripheral edema. No clear signs of CHF. Suspect that his elevated BNP level is related to tachycardia. Pulmonary: No recent cough. Chest x-ray negative for pneumonia. COVID/influenza negative. No definitive evidence for CHF. Oxygen normal. No wheezing her bronchospasm. Although he has tachycardia, no hypoxia or other evidence for PE. Would hold off on CT PA for now. GI: Overall says his abdominal and left-sided pain is getting better since he was here the other night. Repeat CT scan shows improving sigmoid diverticulitis without development of any new complications such as perforation or abscess. It also shows less inflammation in the area of the stomach and improvement in previous gastritis. He has been nauseous and vomiting without blood since yesterday. He also passed a normal brown stool today. No evidence for any GI bleeding. Treated with Protonix for gastritis. Zofran for nausea. Zosyn for diverticulitis. ID: He does have diverticulitis. Consider possible sepsis with his tachycardia and borderline low blood pressure. However is not febrile. Blood culture pending. Urinalysis negative for infection. Chest x-ray negative for pneumonia. Has already received broad-spectrum IV antibiotics to target suspected source of infection. Initial lactic acid was 2.6. After 2 L of crystalloid, repeat lactic acid was 1.4 Heme: Hemoglobin today is similar to on the 8th it was 10.1, now 10.2. White count similar to was 6.4, now 6.9. Platelet count similar now 181. Renal/electrolytes. He does have mildly worsening hyponatremia with a sodium down to 126 (was 128). Mildly worsening hypokalemia with potassium of 3.5 (was 3.7). Bicarb is down from 24 to 18. Anion gap is up to 16. BUN 18, creatinine 0.8 are similar. He is hypomagnesemic with a magnesium of 0.9. Magnesium sulfate 2 g IV infused here in the ER. endocrine. Glucose is 87 today. No evidence for DKA are nonketotic hyperosmolar coma. Neuro: Has generalized nonfocal weakness. No focal deficit. No fall or head injury. Not anticoagulated. No indication for head CT. Lab Data Labs: Lab Results 07/09/24 07/09/24 07/09/24 Range/Units 18:20 22:45 22:53 WBC 6.92 (4.50-11.00) K/uL RBC 3.47 L (4.30-5.90) m/uL Hgb 10.2 L 8.7 L (13.5-17.5) gm/dL Hct 29.9 L (37.0-53.0) % MCV 86 (80-100) fL MCH 29 (26-34) pg MCHC 34 (32-36) gm/dL RDW Coeff of Daniel 13.2 (11.5-15.5) % Plt Count 181 (140-440) K/uL Neut % (Auto) 53.7 (42.0-72.0) % Lymph % (Auto) 31.9 (20-44) % [place] % (Auto) 9.0 (0.0-11.0) % Eos % (Auto) 4.2 (0.0-7.0) % Baso % (Auto) 0.9 (0.0-3.0) % Neut # (Auto) 3.72 (1.7-7.0) K/uL Lymph # (Auto) 2.21 (0.90-2.90) K/uL [place] # (Auto) 0.60 (0.00-0.90) K/UL Eos # (Auto) 0.29 (0.00-0.50) K/uL Baso # (Auto) 0.06 (0.00-0.30) K/uL Abs Immat Gran (auto) 0.02 (0.00-0.30) K/uL Imm/Tot Granulo (auto) 0.3 % Sodium 126 L 126 L (135-149) mmol/L Potassium 3.5 L 3.5 L (3.6-5.1) mmol/L Chloride 92 L 95 L (96-114) mmol/L Carbon Dioxide 18 L 20 (20-32) mmol/L Anion Gap 16 H 11 (7-15) mEq/L BUN 18 17 (7-30) mg/dL Creatinine 0.8 0.7 (0.5-1.5) mg/dL Estimated Creat Clear 60.59 60.59 Estimated GFR 93 97 ml/min Glucose 87 60 (60-115) mg/dL Lactate 2.6 H 1.4 (0.5-1.9) mmol/L Calcium 9.3 8.7 (8.4-10.6) mg/dL Magnesium 0.9 L* (1.5-2.6) mg/dL Total Bilirubin 0.6 (0.1-1.5) mg/dL Direct Bilirubin 0.4 (0.0-0.5) mg/dL AST 28 (12-35) U/L ALT 13 (4-50) U/L Alkaline Phosphatase 81 (40-150) U/L Troponin I 0.04 0.09 H* (0.01-0.04) ng/mL NT-Pro-B Natriuret Pep 1770 pg/mL Total Protein 6.8 (6.0-8.3) g/dL Albumin 4.1 (3.3-5.0) g/dL Lipase 100 (23-300) U/L Urine Color (Yellow) Urine Appearance (Clear) Urine pH (5.0-8.5) Ur Specific Exchange (1.000-1.030) Urine Protein (Negative) Urine Glucose (UA) (Negative) Urine Ketones (Negative) Urine Blood (Negative) Urine Nitrite (Negative) Urine Bilirubin (Negative) Urine Urobilinogen (0.2-1.0) Ur Leukocyte Esterase (Negative) Urine RBC (0-2) Urine WBC (0-5) Ur Squamous Epith Cells (None-Few) Urine Bacteria (None) Ethyl Alcohol < 0.01 L (0.01-0.03) % SARS-CoV-2 (PCR) (Negative) Influenza Type A (PCR) (Negative) Influenza Type B (PCR) (Negative) RSV (PCR) (Negative) Lab Acknowledgement Test Added POC Troponin I 0.04 (0.01-0.04) ng/ml 07/09/24 Range/Units Unknown WBC (4.50-11.00) K/uL RBC (4.30-5.90) m/uL Hgb (13.5-17.5) gm/dL Hct (37.0-53.0) % MCV (80-100) fL MCH (26-34) pg MCHC (32-36) gm/dL RDW Coeff of Daniel (11.5-15.5) % Plt Count (140-440) K/uL Neut % (Auto) (42.0-72.0) % Lymph % (Auto) (20-44) % [place] % (Auto) (0.0-11.0) % Eos % (Auto) (0.0-7.0) % Baso % (Auto) (0.0-3.0) % Neut # (Auto) (1.7-7.0) K/uL Lymph # (Auto) (0.90-2.90) K/uL [place] # (Auto) (0.00-0.90) K/UL Eos # (Auto) (0.00-0.50) K/uL Baso # (Auto) (0.00-0.30) K/uL Abs Immat Gran (auto) (0.00-0.30) K/uL Imm/Tot Granulo (auto) % Sodium (135-149) mmol/L Potassium (3.6-5.1) mmol/L Chloride (96-114) mmol/L Carbon Dioxide (20-32) mmol/L Anion Gap (7-15) mEq/L BUN (7-30) mg/dL Creatinine (0.5-1.5) mg/dL Estimated Creat Clear Estimated GFR ml/min Glucose (60-115) mg/dL Lactate (0.5-1.9) mmol/L Calcium (8.4-10.6) mg/dL Magnesium (1.5-2.6) mg/dL Total Bilirubin (0.1-1.5) mg/dL Direct Bilirubin (0.0-0.5) mg/dL AST (12-35) U/L ALT (4-50) U/L Alkaline Phosphatase (40-150) U/L Troponin I (0.01-0.04) ng/mL NT-Pro-B Natriuret Pep pg/mL Total Protein (6.0-8.3) g/dL Albumin (3.3-5.0) g/dL Lipase (23-300) U/L Urine Color Yellow (Yellow) Urine Appearance Cloudy A (Clear) Urine pH 5.5 (5.0-8.5) Ur Specific Exchange >= 1.030 (1.000-1.030) Urine Protein 3+ A (Negative) Urine Glucose (UA) Negative (Negative) Urine Ketones 4+ A (Negative) Urine Blood Trace-lysed A (Negative) Urine Nitrite Negative (Negative) Urine Bilirubin 3+ A (Negative) Urine Urobilinogen 1.0 (0.2-1.0) Ur Leukocyte Esterase Trace A (Negative) Urine RBC 2-5 A (0-2) Urine WBC 2-5 (0-5) Ur Squamous Epith Cells Few (None-Few) Urine Bacteria Few A (None) Ethyl Alcohol (0.01-0.03) % SARS-CoV-2 (PCR) Negative SARS-CoV-2 (Negative) Influenza Type A (PCR) Negative PCR FLU A (Negative) Influenza Type B (PCR) Negative PCR FLU B (Negative) RSV (PCR) Negative PCR RSV (Negative) Lab Acknowledgement POC Troponin I (0.01-0.04) ng/ml Imaging Data CT scan - head: Attestation: I have reviewed the pertinent imaging results. Radiologist's impression: IMPRESSION: Bibasilar atelectasis. No acute or significant findings. CT scan - abdomen: Attestation: I have reviewed the pertinent imaging results. Radiologist's impression: IMPRESSION: Decreased inflammation in the region of sigmoid diverticulitis. Decreased edema of the gastric antrum. ECG Data Attestation: I personally reviewed and interpreted this ECG as follows: Interpretation: Regular narrow complex tachycardia with a rate of 123. Per computer is undetermined rhythm. Three he he Rate: 123 AK: na QRS axis: Right axis deviation ST segment/T wave: No ST segment elevation depression. QTc: 554 EKG 2. 2210 Undetermined rhythm, either sinus tach or possibly slow AFib flutter Rate: 120 AK: Difficult to determine QRS axis: Right axis deviation. Right bundle-branch block ST segment/T wave: No change from prior. No evolving ST segment elevation or depression. QTc: 554 While in the ER the patient did have a brief run of bigeminy with his regular right bundle branch QRS is interposed with PVCs. He then seemed to stop changes rhythm and developed of clear sinus rhythm with visible P waves and a first-degree AV block and a rate in the 70s. He then resumed a heart rate elevated at about 113. We were not able to catch a 12 lead EKG of this rhythm change but it was recorded on his rhythm strip. Third EKG was obtained shortly after the rhythm changed. 2218 Read by the computer indicates sinus tachycardia with first-degree AV block Rate: 113 AK: Undetermined QRS axis: Right axis deviation. Right bundle-branch block ST segment/T wave: No ST segment elevation or depression. No change from EKG 1. Or 2. Tonight QTc: 562 Compared to EKG from 07/05 I see that he previously was in sinus rhythm with a rate of 76. He had a first-degree AV block with a AK of 262. Compared to EKG from 09/26/2022 rhythm and QRS complexes look similar, almost identical to today. Rate was faster on the previous EKG Looking back in his old chart I see that on 09/26/2022 he had a similar tachycardia. Diagnosed with sinus tachycardia at that time. Also congestive heart failure. Admitted to the hospital. Echocardiogram from 09/26/2022 showed 1. Normal LV size, moderately increased LV wall thickness, EF 65% 2. RV normal 3. Calcified aortic valve. Moderate stenosis some mild regurg. Peak velocity 3.6 m/2nd. Peak gradient 51 mmHg. Mean gradient 30 mmHg. Aortic valve area 1.27 centimeters squared 4. Mitral valve moderate annular calcification and mild regurg. Critical Care Time Critical Care Time Critical Care Time: Yes Attestation: The patient required my highest level preparedness to intervene emergently and I personally spent this critical care time directly and personally managing the patient. This critical care time included: Obtaining a history; Examining the patient; Pulse oximetry; Ordering and reviewing of studies; Arranging urgent treatment with development of a management plan; Evaluation of patients response to treatment; Frequent reassessment discussions with other providers. This critical care time was performed to assess and manage the high probability of imminent life-threatening deterioration that could result in multiorgan failure. It was exclusive of separate billable procedures and treating other patients and teaching time. Total Critical Care Time in Minutes: 40 Discharge Plan Discharge Clinical Impression: Weakness, Diverticulitis, Anemia, Gastritis, Atrial flutter with rapid ventricular response Patient Disposition: Admitted As Observation
[2024-07-09 18:27] LABS: Lactate* 2.6 mmol/L (0.5-1.9)
[2024-07-09 18:28] LABS: Basophils Absolute Auto 0.06 K/uL (0.00-0.30); Basophils Percent Auto 0.9 % (0.0-3.0); Eosinophils Absolute Auto 0.29 K/uL (0.00-0.50); Eosinophils Percent Auto 4.2 % (0.0-7.0); Hematocrit 29.9 % (37.0-53.0); Hemoglobin* 10.2 gm/dL (13.5-17.5); Immature Granulocytes Abs Auto 0.02 K/uL (0.00-0.30); Immature Granulocytes Pct Auto 0.3 %; Lymphocytes Absolute Auto 2.21 K/uL (0.90-2.90); Lymphocytes Percent Auto 31.9 % (20-44); Mean Corpuscular HGB Conc 34 gm/dL (32-36); Mean Corpuscular Hemoglobin 29 pg (26-34); Mean Corpuscular Volume 86 fL (80-100); Neutrophils Absolute Auto 3.72 K/uL (1.7-7.0); Neutrophils Percent Auto 53.7 % (42.0-72.0); Platelet Count* 181 K/uL (140-440); RDW Coefficient of Variation % 13.2 % (11.5-15.5); Red Blood Count 3.47 m/uL (4.30-5.90); White Blood Count* 6.92 K/uL (4.50-11.00)
[2024-07-09 18:31] LABS: Slide Review Reflex No; Troponin, Point-of-Care* 0.04 ng/ml (0.01-0.04)
[2024-07-09 18:41] LABS: Chloride* 92 mmol/L (96-114)
[2024-07-09 18:42] LABS: Potassium* 3.5 mmol/L (3.6-5.1); Sodium* 126 mmol/L (135-149)
[2024-07-09 18:45] LABS: Anion Gap 16 mEq/L (7-15); Blood Urea Nitrogen* 18 mg/dL (7-30); Calcium* 9.3 mg/dL (8.4-10.6); Carbon Dioxide* 18 mmol/L (20-32); Creatinine* 0.8 mg/dL (0.5-1.5); Est. Creatinine Clearance* 60.59; Estimated Glomerular Filt Rate 93 ml/min; Glucose* 87 mg/dL (60-115)
--- OUTSIDE RECORDS SUMMARY | 2024-07-09 18:45 | XMS_ITS | Clinical Summary ---
Author Organization [employer] Address [address] [place] [id number] Care Team Providers Care High Lead Yarder Name Role Phone Jose Linares MD Primary [...] type, unspecified whether angina present, unspecified whether [place] or transplanted heart Chew 1 Tablet (81 [...] Department Care Team Description 07/05/2024 Orders Only [facility] Scanner 1 scan: (1-Ord) [facility], CT ABDOMEN PELVIS W CON, 07/05/2024 06/26/2024 Refill [facility] [address] [place] [address] VoJose menezes MD Refill Request (Citalopram) 04/15/2024 Refill [facility] [address] [place] [address] VotelJose MD Refill Request (Pantoprazole) from Last [...] on file 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 Gender Identity Not on file Sexual Orientation Not on file Occupation Industry Job Start Date Job End Date Not on file Not on file Not on file 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 on 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 on file Not on file Not [...] Description 07/10/2024 2:30 PM CDT Office Visit [facility] [address] [place] [address] Jose Linares MD [address] [place] [address] Health Maintenance Due Date Last Done Comments [...] Completed 01/26/2023 Medical Devices Implanted Type Area Ground Support Equipment Assembler Device Identifier Shelf Expiration Date Model / Serial / Lot Amplatz Ureteral Stent Set Implanted:Qty: 1 on 06/02/2013 at [facility] [id number]-10.2-2 [id number] / / Description:AMPLATZ URETERAL STENT SET Procedures Procedure Name Priority Date/Time Associated Diagnosis Comments SCAN-CT INTERPRETATION 12:00 AM FRONT END LOADER DRIVER LIPID PANEL W REFLEX MEASURED LDL Routine 12/13/2023 1:45 PM CDT Hyperlipidemia CTA CHEST ABDOMEN PELVIS AORTIC DISSECTION W STAT 10/26/2022 5:45 PM CDT COLONOSCOPY DIAGNOSTIC Routine 6:56 AM FRONT END LOADER DRIVER Screening for colon cancer from Last 3 Months or Most Recently Relevant to Health Maintenance Results * SCAN-CT INTERPRETATION (07/05/2024 12:00 AM FRONT END LOADER DRIVER) Anatomical Region Laterality Modality Other us Scanner OTHER Final Result * LIPID PANEL W REFLEX MEASURED LDL (12/13/2023 1:45 PM CDT) CHOLESTEROL,TOTAL 134 100 - 199 mg/dL 12/13/2023 10:46 PM CDT [facility] Comment: Cholesterol, Total Reference Ranges Desirable <200 mg/dL Borderline 200-239 mg/dL High >=240 mg/dL TRIGLYCERIDES 96 <150 mg/dL 12/13/2023 10:46 PM CDT [facility] HDL CHOLESTEROL 54 >40 mg/dL 10:46 PM CDT [facility] NON-HDL CHOLESTEROL 80 <145 mg/dl 12/13/2023 10:46 PM CDT [facility] CHOL/HDL RATIO 2.48 <4.50 12/13/2023 10:46 PM CDT [facility] LDL CHOLESTEROL 61 <=130 mg/dL 12/13/2023 10:46 PM CDT [facility] VLDL CHOLESTEROL 19 <=30 mg/dL 12/13/2023 10:46 PM CDT [facility] PROVIDER ORDERED STATUS RANDOM 12/13/2023 10:46 PM CDT [facility] Blood BLOOD SPECIMEN / Unknown Venipuncture / Unknown 12/13/2023 1:45 PM CDT 12/13/2023 1:45 PM CDT us Jose Linares MD CHEMISTRY Final Re sult [facility] [address] [place] [address], [place] * CTA CHEST ABDOMEN PELVIS AORTIC [...] CHEST ABDOMEN PELVIS AORTIC DISSECTION W LOCATION: [facility] MEDICAL IMAGING DATE: 10/26/2022 INDICATION: Anemia. GI bleed. COMPARISON: 01/10/2022 TECHNIQUE: CT angiogram chest abdomen pelvis during arterial phase of injection of IV contrast. 2D and 3D MIP reconstructions were performed by the radioisotope technologist. Dose reduction techniques were used. CONTRAST: [...] CHEST ABDOMEN PELVIS AORTIC DISSECTION W LOCATION: [facility] MEDICAL IMAGING DATE: 10/26/2022 INDICATION: Anemia. GI bleed. COMPARISON: 01/10/2022 TECHNIQUE: CT angiogram chest abdomen pelvis during arterial phase ofinjection of IV contrast. 2D and 3D MIP reconstructions were performed bythe radioisotope technologist. Dose reduction techniques were used. CONTRAST: [...] ult * COLONOSCOPY DIAGNOSTIC (04/03/2022 12:00 AM FRONT END LOADER DRIVER) us Jose Linares MD GI PROCEDURE ORD [...] Not DiscussedPer Advance Care Plan Care Teams High Lead Yarder Relationship Specialty Start Date End Date Votel, Jose Bateman MD [address] [place] [address] PCP - General Family Practice 08/17/11
--- OUTSIDE RECORDS SUMMARY | 2024-07-09 18:45 | XMS_ITS | Clinical Summary ---
Author Organization [employer] Address [address] [place] [address]. 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 Gender Identity Not on file Sexual Orientation Not on file Last Filed Vital Signs Vital Sign Reading Time Taken Comments Blood Pressure 130/60 05/13/2022 3:23 PM SITE ENGINEER Pulse 76 05/13/2022 3:23 PM SITE ENGINEER Temperature 37.2 C (98.9 F) 05/13/2022 3:23 PM SITE ENGINEER Respiratory Rate 18 05/13/2022 3:23 PM SITE ENGINEER Oxygen Saturation 91% 05/13/2022 3:23 PM SITE ENGINEER Inhaled Oxygen Concentration - - Weight 132.3 kg (291 lb 11.2 oz) 05/09/2022 5:50 AM SITE ENGINEER scale Height 167.6 cm (5' 6) 05/09/2022 5:50 AM SITE ENGINEER s tated Body Mass Index 47.08 05/09/2022 5:50 AM SITE ENGINEER Plan of Treatment Health Maintenance Due Date [...] GLUCOSE BY METER Routine 05/13/2022 7:57 AM SITE ENGINEER from Last 3 Months or Most Recently Relevant to Health Maintenance Results * (ABNORMAL) Glucose by meter (05/13/2022 7:57 AM SITE ENGINEER) GLUCOSE BY METER POCT 111(H) 70 - 99 mg/dL 05/13/2022 8:05 AM SITE ENGINEER [facility] POCT RESULTS Blood, Capillary BLOOD SPECIMEN / Unknown 05/13/2022 7:57 AM SITE ENGINEER 05/13/2022 8:05 AM SITE ENGINEER us Lencho Walsh MD LAB - BEAKER POCT Final Re sult [facility] POCT RESULTS [address] [place] [address] from Last 3 Months or Most Recently Relevant to Health Maintenance Insurance MEDICARE [facility] MEDICARE ADV[employer]AGE [place] [id number] Advance Directives For more information, please contact: [phone] * Full Code (Latest Code Status on [...] 9:17 PM 02/06/2016 1:05 PM Care Teams Talent Recruiter Relationship Specialty Start Date End Date Jose Linares: [phone] PCP - General Family Practice 02/02/16
--- NOTE | 2024-07-09 18:57 | CRLHL7_ITS ---
For Patients: As a result of the Century Cures Act, medical imaging exams and procedure reports are released immediately into your electronic medical record. You may view this report before your referring provider. If you have questions, please contact your health care provider. INDICATION: Left lower quadrant pain, weakness TECHNIQUE: CT abdomen and pelvis acquired with 100 cc Isovue 370 IV contrast. COMPARISON: CT abdomen pelvis 07/05/2024, CT abdomen pelvis 09/26/2023 FINDINGS: Lower chest: Dendriform ossification in the lower lobes. Coronary artery calcification. Aortic annular and valvular calcification. Mitral annular calcification. Liver: Hepatic steatosis. Subcentimeter hypodense lesions, likely cysts. Gallbladder and bile ducts: Layering sludge in the gallbladder. No evidence of cholecystitis. No biliary ductal dilation. Pancreas: Scattered calcifications in the pancreas, likely sequela of chronic pancreatitis. Spleen: Unremarkable. Adrenal glands: Unremarkable. Kidneys: Bilateral renal cysts and subcentimeter hypodense lesions, likely cysts. GI tract: Sequela of gastric sleeve with small hiatal hernia. Decreased edema of the gastric antrum. Diverticulosis with decreased inflammatory changes in the left lower quadrant. Sigmoid is redundant, similar to 2014. Suture along the cecum, likely sequela of prior appendectomy. Anastomosis in the right lower quadrant. Vasculature: Abdominal aorta is normal in caliber. Moderate aortoiliac atherosclerosis. Sequela of embolization coils in the region of the duodenum. Mild swirling of the mesentery gave the right lower quadrant is similar to 2014. Lymph nodes: No lymphadenopathy. Peritoneum/Abdominal Wall: Small fat containing umbilical hernia. Diffuse sarcopenia. Pelvis: Incompletely distended bladder. Sequela of TURP. Bones: Unremarkable for age. IMPRESSION: Decreased inflammation in the region of sigmoid diverticulitis. Decreased edema of the gastric antrum. Please note that all CT scans at this facility use dose modulation, iterative reconstruction, and/or weight-based dosing when appropriate to reduce radiation dose to as low as reasonably achievable. Dictated by Carolyn Fraser MD @ 07/09/2024 9:05:39 PM (Electronically Signed)
[2024-07-09] MEDS: 0.9 % SODIUM CHLORIDE 1000 ml 1,000 ML IV ×2 (19:05→22:54)
--- NOTE | 2024-07-09 19:10 | CRLHL7_ITS ---
For Patients: As a result of the Century Cures Act, medical imaging exams and procedure reports are released immediately into your electronic medical record. You may view this report before your referring provider. If you have questions, please contact your health care provider. INDICATION: Weakness, tachycardia. TECHNIQUE: Chest 2 views. COMPARISON: None. FINDINGS: Cardiovascular and mediastinum: Heart size and vasculature are normal in caliber and appearance. Lungs and pleural spaces: Bibasilar atelectasis. No sign of infiltrate or mass. No sign of pleural effusion. No pneumothorax. Bones and soft tissues: No significant findings. IMPRESSION: Bibasilar atelectasis. No acute or significant findings. Dictated by Alfred Cisneros MD @ 07/09/2024 8:51:56 PM (Electronically Signed)
[2024-07-09 19:19] LABS: Appearance Urine Cloudy (Clear); Bilirubin Urine 3+ (Negative); Blood Urine Trace-lysed (Negative); Glucose Urine Negative (Negative); Ketones Urine 4+ (Negative); Leukocyte Esterase Urine Trace (Negative); Nitrite Urine Negative (Negative); Protein Urine 3+ (Negative); Specific Gravity Urine >= 1.030 (1.000-1.030); pH Urine 5.5 (5.0-8.5)
[2024-07-09 19:21] LABS: Albumin* 4.1 g/dL (3.3-5.0)
[2024-07-09 19:24] LABS: Aspartate Amino Transferase* 28 U/L (12-35); Bilirubin Direct* 0.4 mg/dL (0.0-0.5); Bilirubin Total* 0.6 mg/dL (0.1-1.5); Total Protein* 6.8 g/dL (6.0-8.3)
[2024-07-09 19:24] LABS: Color Urine Yellow (Yellow)
[2024-07-09 19:25] LABS: Alanine Aminotransferase* 13 U/L (4-50); Alkaline Phosphatase* 81 U/L (40-150); Lipase* 100 U/L (23-300)
[2024-07-09 19:36] LABS: Ethanol* < 0.01 % (0.01-0.03); Magnesium* 0.9 mg/dL (1.5-2.6)
[2024-07-09 19:51] LABS: NT Pro B Type NatriureticPept* 1770 pg/mL
[2024-07-09 19:53] LABS: Troponin I* 0.04 ng/mL (0.01-0.04)
[2024-07-09 20:11] LABS: Bacteria Urine Few; Squamous Epithelial Cell Urine Few (None-Few)
[2024-07-09] MEDS: MAGNESIUM IV 2 GM/50 ML PIGGYBACK IVPB (20:42)
[2024-07-09] MEDS: PANTOPRAZOLE SODIUM 80 MG in 0.9 % SODIUM CHLORIDE 100 ml 100 ML 10 MG IVPB (21:55)
[2024-07-09] MEDS: PIPERACILLIN/TAZOBACTAM 4.5 GM in 0.9 % SODIUM CHLORIDE Mini-bag 100 ML IVPB (21:56)
[2024-07-09] MEDS: LACTATED RINGERS 1000 ML 1,000 ML IV (21:56)
[2024-07-09] MEDS: ONDANSETRON 2 MG/ML inj 4 MG IVP (22:21)
[2024-07-09 22:39] LABS: PCR FLU A Negative PCR FLU A (Negative); PCR FLU B Negative PCR FLU B (Negative); PCR RSV Negative PCR RSV (Negative); SARS PCR* Negative SARS-CoV-2 (Negative)
[2024-07-09 22:57] LABS: Lactate* 1.4 mmol/L (0.5-1.9)
[2024-07-09 23:00] LABS: Hemoglobin* 8.7 gm/dL (13.5-17.5)
[2024-07-09 23:09] LABS: Chloride* 95 mmol/L (96-114); Potassium* 3.5 mmol/L (3.6-5.1); Sodium* 126 mmol/L (135-149)
[2024-07-09 23:12] LABS: Anion Gap 11 mEq/L (7-15); Blood Urea Nitrogen* 17 mg/dL (7-30); Calcium* 8.7 mg/dL (8.4-10.6); Carbon Dioxide* 20 mmol/L (20-32); Creatinine* 0.7 mg/dL (0.5-1.5); Est. Creatinine Clearance* 60.59; Estimated Glomerular Filt Rate 97 ml/min; Glucose* 60 mg/dL (60-115)
[2024-07-09 23:26] LABS: Troponin I* 0.09 ng/mL (0.01-0.04)
[2024-07-10] VITALS (17 sets, daily range): BP systolic 95–118; BP diastolic 47–62; PULSE 67–101; RESP 9–32; TEMP 36.8–37; O2SAT 92–98
--- NOTE | 2024-07-10 00:51 | PC.NURSE ---
Pt belongings inventoried-has 2 hearing aides, a pair of glasses and clothing and cell phone. He says his took home his wallet
--- NOTE | 2024-07-10 01:10 | ED.NURSE ---
Pt report given to dana PEREZ. Pt to 277.
--- NOTE | 2024-07-10 01:17 | W.PM.TELEH&P ---
Telehealth- H&P: HPI History of Present Illness Date Seen: 07/10/24 Chief complaint: Dehydration, weakness Narrative: Sulaiman Trujillo is seen as an Interactive Telehealth visit. Sulaiman Trujillo is a 74 year old male who Presents to hospital with complaints of abdominal pain. Patient was seen in the emergency room a few days prior. At that time he presented to the hospital due to abdominal pain. When he presented on July 05, he was complaining of abdominal pain. Patient with previous hemicolectomy. He was noted to have afebrile, normotensive. CT scan of the abdomen which is consistent with gastritis, sigmoid diverticulitis. He was prescribed ciprofloxacin and metronidazole. He was discharged home with stable condition. Today the patient presented back to the hospital with complaints of weakness and elevated heart rate. In the emergency room, he was noted to have WBC count 6.4, hemoglobin of 10 point, sodium 127, creatinine 1.7, LFTs normal, normal troponin. CT scan of the abdomen showed diverticulitis and gastritis but improved. Patient denies any black in her stools. Normal in the ER, the patient was noted to have a heart rate of 120.. He was having atrial flutter with rapid rate. He was administered IV fluids and his heart rate improved and abruptly became sinus rhythm. Patient did have some elevated troponins of borderline elevated, thought to be related to the atrial flutter with rapid rate. In addition the patient did have some episode of hypotension in the ER. Which have now normalized. Review of Systems Status of ROS: Reports: 10 or more systems reviewed and unremarkable except as noted in History and below Const: Denies: fever Cardio: Reports: palpitations; Denies: chest pain or shortness of breath with exertion Resp: Denies: shortness of breath GI: Reports: abdominal pain and nausea [facility] Medical History Metabolic encephalopathy ?G93.41 - Metabolic encephalopathy (ICD-10) Hyponatremia ?E87.1 - Hypo-osmolality and hyponatremia (ICD-10) Acute right-sided weakness ?R53.1 - Weakness (ICD-10) Medical non-compliance ?Z91.199 - Patient's noncompliance with other medical treatment and regimen due to unspecified reason (ICD-10) Unintentional weight loss ?R63.4 - Abnormal weight loss (ICD-10) Atrial arrhythmia ?I49.8 - Other specified cardiac arrhythmias (ICD-10) Abnormal CT of brain ?R90.89 - Other abnormal findings on diagnostic imaging of central nervous system (ICD-10) Episode of gagging ?R19.8 - Other specified symptoms and signs involving the digestive system and abdomen (ICD-10) Seborrhea of face ?L21.9 - Seborrheic dermatitis, unspecified (ICD-10) Nausea ?R11.0 - Nausea (ICD-10) Microcytic anemia ?D50.9 - Iron deficiency anemia, unspecified (ICD-10) Steroid-induced hyperglycemia ?R73.9 - Hyperglycemia, unspecified (ICD-10) ?T38.0X5A - Adverse effect of glucocorticoids and synthetic analogues, initial encounter (ICD-10) Pituitary adenoma with extrasellar extension ?D35.2 - Benign neoplasm of pituitary gland (ICD-10) Benign non-nodular prostatic hyperplasia with lower urinary tract symptoms ?N40.1 - Benign prostatic hyperplasia with lower urinary tract symptoms (ICD-10) ASHD (arteriosclerotic heart disease) ?I25.10 - Atherosclerotic heart disease of [place] coronary artery without angina pectoris (ICD-10) Kidney stones ?N20.0 - Calculus of kidney (ICD-10) Aortic stenosis ?I35.0 - Nonrheumatic aortic (valve) stenosis (ICD-10) MRSA bacteremia ?R78.81 - Bacteremia (ICD-10) ?B95.62 - Methicillin resistant Staphylococcus aureus infection as the cause of diseases classified elsewhere (ICD-10) Postoperative hypotension ?I95.81 - Postprocedural hypotension (ICD-10) Morbid obesity ?E66.01 - Morbid (severe) obesity due to excess calories (ICD-10) Hyperlipidemia ?E78.5 - Hyperlipidemia, unspecified (ICD-10) Abnormal colonoscopy ?R93.3 - Abnormal findings on diagnostic imaging of other parts of digestive tract (ICD-10) Hx of colonic polyps ?Z86.010 - Personal history of colonic polyps (ICD-10) Sleep apnea ?G47.30 - Sleep apnea, unspecified (ICD-10) Malignant melanoma of right upper extremity ?C43.61 - Malignant melanoma of right upper limb, including shoulder (ICD-10) Hypertension ?I10 - Essential (primary) hypertension (ICD-10) Diabetes mellitus type 2 in obese ?E11.69 - Type 2 diabetes mellitus with other specified complication (ICD-10) ?E66.9 - Obesity, unspecified (ICD-10) Surgical History History of transurethral resection of prostate ?Z98.890 - Other specified postprocedural states (ICD-10) ?Z90.79 - Acquired absence of other genital organ(s) (ICD-10) 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) H/O vasectomy ?Z98.52 - Vasectomy status (ICD-10) S/P skin biopsy ?Z98.890 - Other specified postprocedural states (ICD-10) H/O nephrostomy H/O lithotripsy ?Z98.890 - Other specified postprocedural states (ICD-10) S/P laparoscopic sleeve gastrectomy ?Z98.84 - Bariatric surgery status (ICD-10) History of total right hip arthroplasty ?Z96.641 - Presence of right artificial hip joint (ICD-10) H/O umbilical hernia repair ?Z98.890 - Other specified postprocedural states (ICD-10) ?Z87.19 - Personal history of other diseases of the digestive system (ICD-10) H/O hemorrhoidectomy ?Z98.890 - Other specified postprocedural states (ICD-10) Hx of colonoscopy ?Z98.890 - Other specified postprocedural states (ICD-10) H/O right hemicolectomy ?Z90.49 - Acquired absence of other specified parts of digestive tract (ICD-10) Hx of appendectomy ?Z90.49 - Acquired absence of other specified parts of digestive tract (ICD-10) Family History Father Colon cancer Obesity Sister Diabetes Obesity Mother Heart disease High blood pressure Hyperlipidemia Obesity Stroke Social History Narrative: [place] Requests that we talk with his ex- about current health issues. Son is also actively involved in assisting his care. Wishes to be full code. He does not smoke. Highest level of school completed/degree received: Associate degree: occupational, technical, vocational program Smoking Status: Former smoker What tobacco products do you use: cigarettes Years smoked: 30 Smoking quit date/years: >15 years ago Do you use any of these nicotine containing products: None Second hand tobacco smoke exposure: No How often do you have a drink containing alcohol: 2-4 times a month Alcohol type: beer How many standard drinks containing alcohol do you have on a typical day: 1 or 2 How often do you have six or more drinks on one occasion: Less than monthly AUDIT-C Alcohol total score: 3 Non-prescribed substance use: denies use Caffeine: Yes (3-4 daily) Do you think of yourself as: straight/heterosexual Gender Identity: male service: No Meds Home Medications and Allergies Home Medications ?Medication ?Instructions ?Recorded ?Confirmed ?Type atorvastatin 40 mg tablet 40 mg PO DAILY 01/10/22 07/09/24 History citalopram 10 mg tablet 10 mg PO DAILY 01/10/22 07/09/24 History metformin 1,000 mg tablet 1,000 mg PO BIDWM 01/10/22 07/09/24 History metoprolol succinate 50 mg 50 mg PO DAILY 01/10/22 07/09/24 History tablet,extended release 24 hr cholecalciferol (vitamin D3) 25 1,000 unit PO DAILY 01/23/22 02/08/24 History mcg (1,000 unit) tablet pantoprazole 40 mg tablet,delayed 40 mg PO DAILY 01/23/22 02/08/24 History release acetaminophen 500 mg tablet 1,000 mg PO Q6H PRN 01/30/22 02/08/24 History lisinopril 10 mg tablet 20 mg PO DAILY 09/26/22 07/09/24 History amlodipine 5 mg tablet 5 mg PO DAILY 02/08/24 07/09/24 History spironolactone 25 mg tablet 25 mg PO DAILY 02/08/24 02/08/24 History Allergies Allergy/AdvReac Type Severity Reaction Status Date / Time No Known Drug Allergies Allergy Verified 07/05/24 16:11 Exam Narrative Exam Narrative: Physical Exam GENERAL: ?vital signs reviewed, well developed and nourished, in no distress HEENT:oral mucosa is moist. NECK: Supple without lymphadenopathy or thyromegaly according to nursing staff examination observation HEART: Regular rate and rhythm without any rubs, murmurs, or gallops. LUNGS: Clear to auscultation bilaterally with good air movement throughout ABDOMEN: Observation from nurse assisted exam, abdomen appears soft, nontender, and nondistended with Positive bowel sounds noted. EXTREMITIES: Strength and sensation is observed to be grossly within normal limits in the upper and lower extremities.? No focal strength deficit is observed. SKIN:? Observed warm and dry with color normal Const Vital Signs, click to edit/add: Vital Signs - 24 hr 07/09/24 17:53 07/09/24 18:04 07/09/24 18:05 Pulse Rate Pulse Rate [Pulse Oximeter] 55 L Respiratory Rate 22 18 19 Blood Pressure 118/87 Blood Pressure [Right Upper Arm] 89/57 L Pulse Oximetry 100 Oxygen Delivery Method Room Air 07/09/24 18:15 07/09/24 18:30 07/09/24 18:30 Pulse Rate Pulse Rate [Pulse Oximeter] 130 H Respiratory Rate 17 23 Blood Pressure Blood Pressure [Right Upper Arm] Pulse Oximetry Oxygen Delivery Method 07/09/24 18:41 07/09/24 18:43 07/09/24 18:45 Pulse Rate Pulse Rate [Pulse Oximeter] Respiratory Rate 14 7 L 24 Blood Pressure Blood Pressure [Right Upper Arm] Pulse Oximetry Oxygen Delivery Method 07/09/24 18:50 07/09/24 18:53 07/09/24 18:54 Pulse Rate Pulse Rate [Pulse Oximeter] 125 H Respiratory Rate 13 7 L Blood Pressure 86/54 L 94/57 L Blood Pressure [Right Upper Arm] Pulse Oximetry Oxygen Delivery Method 07/09/24 19:01 07/09/24 19:15 07/09/24 19:22 Pulse Rate 126 H Pulse Rate [Pulse Oximeter] Respiratory Rate 10 L 26 H 17 Blood Pressure 92/53 L 111/67 Blood Pressure [Right Upper Arm] Pulse Oximetry 75 L Oxygen Delivery Method 07/09/24 19:30 07/09/24 19:41 07/09/24 19:45 Pulse Rate 127 H 127 H 129 H Pulse Rate [Pulse Oximeter] Respiratory Rate 13 20 8 L Blood Pressure 103/59 L Blood Pressure [Right Upper Arm] Pulse Oximetry 95 98 97 Oxygen Delivery Method 07/09/24 19:58 07/09/24 20:39 07/09/24 20:42 Pulse Rate 121 H Pulse Rate [Pulse Oximeter] 124 H Respiratory Rate 38 H 47 H Blood Pressure 97/65 Blood Pressure [Right Upper Arm] Pulse Oximetry 96 Oxygen Delivery Method 07/09/24 20:45 07/09/24 21:00 07/09/24 21:01 Pulse Rate 131 H 124 H 125 H Pulse Rate [Pulse Oximeter] Respiratory Rate 37 H 66 H 29 H Blood Pressure 89/72 L Blood Pressure [Right Upper Arm] Pulse Oximetry 100 99 100 Oxygen Delivery Method 07/09/24 21:02 07/09/24 21:15 07/09/24 21:21 Pulse Rate 123 H 118 H 122 H Pulse Rate [Pulse Oximeter] Respiratory Rate 34 H 3 L Blood Pressure 89/62 L Blood Pressure [Right Upper Arm] Pulse Oximetry 99 100 99 Oxygen Delivery Method 07/09/24 21:22 07/09/24 21:30 07/09/24 21:45 Pulse Rate 125 H 127 H Pulse Rate [Pulse Oximeter] Respiratory Rate 13 Blood Pressure 92/65 Blood Pressure [Right Upper Arm] Pulse Oximetry 98 100 Oxygen Delivery Method 07/09/24 21:49 07/09/24 21:52 07/09/24 22:00 Pulse Rate 122 H 127 H 129 H Pulse Rate [Pulse Oximeter] Respiratory Rate 12 13 11 L Blood Pressure 81/52 L 83/65 L Blood Pressure [Right Upper Arm] Pulse Oximetry 97 98 100 Oxygen Delivery Method 07/09/24 22:02 07/09/24 22:12 07/09/24 22:15 Pulse Rate 123 H 123 H 119 H Pulse Rate [Pulse Oximeter] Respiratory Rate 18 18 23 Blood Pressure 97/61 79/40 L 103/61 Blood Pressure [Right Upper Arm] Pulse Oximetry 98 97 93 Oxygen Delivery Method 07/09/24 22:16 07/09/24 22:17 07/09/24 22:20 Pulse Rate 118 H 117 H 125 H Pulse Rate [Pulse Oximeter] Respiratory Rate 26 H 14 21 Blood Pressure 84/49 L 71/54 L Blood Pressure [Right Upper Arm] Pulse Oximetry 96 100 98 Oxygen Delivery Method 07/09/24 22:21 07/09/24 22:25 07/09/24 22:30 Pulse Rate 114 H 128 H 115 H Pulse Rate [Pulse Oximeter] Respiratory Rate 13 15 12 Blood Pressure 93/50 L Blood Pressure [Right Upper Arm] Pulse Oximetry 99 100 95 Oxygen Delivery Method 07/09/24 22:32 07/09/24 22:45 07/09/24 22:47 Pulse Rate 118 H 110 H 115 H Pulse Rate [Pulse Oximeter] Respiratory Rate 7 L 9 L 27 H Blood Pressure 90/41 L 85/62 L Blood Pressure [Right Upper Arm] Pulse Oximetry 96 96 90 Oxygen Delivery Method 07/09/24 22:51 07/09/24 22:52 07/09/24 22:55 Pulse Rate 76 84 101 H Pulse Rate [Pulse Oximeter] Respiratory Rate 8 L 13 9 L Blood Pressure 106/63 93/65 Blood Pressure [Right Upper Arm] Pulse Oximetry 84 L 99 94 Oxygen Delivery Method 07/09/24 23:00 07/09/24 23:01 07/09/24 23:08 Pulse Rate 105 H 103 H 76 Pulse Rate [Pulse Oximeter] Respiratory Rate 14 14 19 Blood Pressure 79/59 L 106/57 L Blood Pressure [Right Upper Arm] Pulse Oximetry 96 96 99 Oxygen Delivery Method 07/09/24 23:09 07/09/24 23:15 07/09/24 23:17 Pulse Rate 106 H 102 H 103 H Pulse Rate [Pulse Oximeter] Respiratory Rate 16 10 L 15 Blood Pressure 112/57 L Blood Pressure [Right Upper Arm] Pulse Oximetry 94 89 96 Oxygen Delivery Method 07/09/24 23:30 07/09/24 23:32 07/09/24 23:33 Pulse Rate 84 79 78 Pulse Rate [Pulse Oximeter] Respiratory Rate 11 L 18 22 Blood Pressure 104/52 L Blood Pressure [Right Upper Arm] Pulse Oximetry 97 95 95 Oxygen Delivery Method 07/09/24 23:45 07/09/24 23:47 07/09/24 23:48 Pulse Rate 80 75 75 Pulse Rate [Pulse Oximeter] Respiratory Rate 32 H 12 8 L Blood Pressure 108/49 L Blood Pressure [Right Upper Arm] Pulse Oximetry 95 97 96 Oxygen Delivery Method 07/10/24 00:00 07/10/24 00:09 07/10/24 00:15 Pulse Rate 73 77 Pulse Rate [Pulse Oximeter] Respiratory Rate 32 H 19 20 Blood Pressure 114/56 L Blood Pressure [Right Upper Arm] Pulse Oximetry 98 96 Oxygen Delivery Method 07/10/24 00:17 07/10/24 00:30 07/10/24 00:32 Pulse Rate 74 76 75 Pulse Rate [Pulse Oximeter] Respiratory Rate 21 20 9 L Blood Pressure 95/48 L 99/47 L Blood Pressure [Right Upper Arm] Pulse Oximetry 95 96 96 Oxygen Delivery Method 07/10/24 00:45 07/10/24 00:47 Pulse Rate 75 85 Pulse Rate [Pulse Oximeter] Respiratory Rate 21 9 L Blood Pressure 99/50 L Blood Pressure [Right Upper Arm] Pulse Oximetry 95 96 Oxygen Delivery Method Hospitalist - H&P: Result Labs Labs: Short CBC 07/09/24 07/09/24 Range/Units 18:20 22:45 WBC 6.92 (4.50-11.00) K/uL Hgb 10.2 L 8.7 L (13.5-17.5) gm/dL Hct 29.9 L (37.0-53.0) % Plt Count 181 (140-440) K/uL BMP 07/09/24 07/09/24 18:20 22:45 Sodium 126 L 126 L Potassium 3.5 L 3.5 L Chloride 92 L 95 L Carbon Dioxide 18 L 20 BUN 18 17 Creatinine 0.8 0.7 Glucose 87 60 Calcium 9.3 8.7 Cardiac Enzymes 07/09/24 07/09/24 Range/Units 18:20 22:45 Troponin I 0.04 0.09 H* (0.01-0.04) ng/mL Liver Function 07/09/24 Range/Units 18:20 Total Bilirubin 0.6 (0.1-1.5) mg/dL Direct Bilirubin 0.4 (0.0-0.5) mg/dL AST 28 (12-35) U/L ALT 13 (4-50) U/L Alkaline Phosphatase 81 (40-150) U/L Albumin 4.1 (3.3-5.0) g/dL Urine 07/09/24 Range/Units Unknown Urine Color Yellow (Yellow) Urine Appearance Cloudy A (Clear) Urine pH 5.5 (5.0-8.5) Ur Specific [place] >= 1.030 (1.000-1.030) Urine Protein 3+ A (Negative) Urine Glucose (UA) Negative (Negative) Assessment and Plan Assessment and plan (1) Atrial flutter with rapid ventricular response: Status: Acute (2) Gastritis: Status: Acute (3) Anemia: Status: Acute (4) Diverticulitis: Status: Acute (5) Weakness: Status: Acute (6) Diverticulitis: Status: Acute (7) NSTEMI (non-ST elevated myocardial infarction): Problem comment: For troponin peaked and down trended. Cardiology outpatient is appropriate. Echo was essentially unchanged. Status: Acute (8) Hypotension: Status: Acute (9) Morbid obesity: Problem comment: BMI 44 Status: Acute (10) Heart failure with preserved ejection fraction: Problem comment: Echo reviewed. Cardiac MRI reviewed from June 2022. Outpatient cardiology follow up has been arranged. Patient was previously on hydrochlorothiazide 50 mg daily. He was started torsemide 10 mg daily in anticipation of problems with volume control and edema off his hydrochlorothiazide. May also help manage his sodium. cardiac MRI in july 20 1. Hypertrophic cardiomyopathy with normal left ventricular systolic function, LVEF 63%. A. Borderline elongated anterior mitral leaflet of 2.7 cm. 1+ systolic anterior motion without resting LVOT obstruction. B. HILARY with a prominent increase in global myocardial mass and a maximal wall thickness of 2 cm. C. Mild increase in LV volumes and an increase in LVSVI of 37 ml/m2. 2. Normal right ventricular systolic function, RVEF 74%. A. Normal RV volumes and wall motion. 3. Small extent of replacement myocardial fibrosis. 4. Aortic valve is trileaflet with a stenotic and a nearly fused right and left coronary cusp. 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 5. Severe aortic regurgitation. A. Aortic regurgitant fraction 40% with a regurgitant volume 51 ml. B. Holo-diastolic retroaortic flow. 6. Severe left atrial enlargement. 7. Normal pericardium. 8. Normal aortic size. Status: Acute (11) Aortic stenosis: Problem comment: Need outpatient cardiology follow-up. Status: Acute Plan Assessment and plan Atrial flutter with rapid ventricular rate currently currently sinus rhythm. He normally takes metoprolol but due to hypotension, I do have to hold this medication. He is being provided IV fluids. I would recommend to continue his beta-gina once he is stable. I am not planning to start anticoagulation yet. He did have significant gastritis and his hemoglobin has dropped, potentially risking bleed if starting anticoagulation. He may need upper endoscopy before this is initiated. Severe gastritis: This patient is n.p.o., I placed him on Protonix IV twice daily. At this point it is to help with his symptoms of gastric gastritis. Involving his aspirin 81. He may benefit from upper endoscopy given review worsening anemia. 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 He should have an failry urgent upper endoscopy in the next few weeks. Acute on chronic anemia: Patient's hemoglobin is 8.7. No evidence of black or red stools at this time but given gastritis I think this needs to be monitored. Hypotension likely in the setting of atrial flutter with rapid rate. His blood pressures have normalized down to 110/54. I have technically held his blood pressure medications for the morning. However if his blood pressures normalize, they can be restarted. Diverticulitis without complication: Continue Zosyn. He was on Cipro and Flagyl at home. Apparently he is doing better. His CT scan shows improvement. NSTEMI this is likely type II NSTEMI secondary to oxygen mismatch in the setting of severe tachycardia. DVT prophylaxis heparin subcu Code full Telehealth Visit: Todays History and Physical is via interactive telehealth by Dr Matthieu Tang MD The Patient is located [place]: Physician is located at [facility]. Nursing staff assisted in the patient's exam. The visit being done today meets criteria for a telehealth visit and the patient or patient's parent/guardian is aware the visit is a telehealth visit. Camera Start time 130 Camera End time 200 Telehealth: Statement Statement Telehealth Visit: Today's History and Physical is provided via interactive telehealth by Matthieu Tang MD.? Patient is located at [facility].? Provider is located at [facility].? Nursing staff assisted with the patient's exam. The visit being done today meets criteria for a telehealth visit and the patient or patient?s parent/guardian is aware the visit is a telehealth visit.
[2024-07-10] MEDS: 0.9 % SODIUM CHLORIDE 1000 ml 1,000 ML 100 ML IV (02:50)
[2024-07-10] MEDS: PIPERACILLIN/TAZOBACTAM 3.375 GM in 0.9 % SODIUM CHLORIDE Mini-bag 100 ML IVPB ×4 (05:28→21:40)
[2024-07-10 07:21] LABS: HCO3 VBG 24 mmol/L (21-28); Lactate* 0.7 mmol/L (0.5-1.9); PCO2 VBG 38 mmHG (40-50); PO2 VBG 32.9 mmHG (25-47); pH VBG 7.412 (7.32-7.43)
[2024-07-10 07:22] LABS: Basophils Percent Auto 0.5 % (0.0-3.0); Eosinophils Percent Auto 7.2 % (0.0-7.0); Hematocrit 24.9 % (37.0-53.0); Hemoglobin* 8.6 gm/dL (13.5-17.5); Lymphocytes Percent Auto 37.9 % (20-44); Mean Corpuscular HGB Conc 35 gm/dL (32-36); Mean Corpuscular Hemoglobin 30 pg (26-34); Mean Corpuscular Volume 86 fL (80-100); Monocytes Percent Auto 10.4 % (0.0-11.0); Platelet Count* 148 K/uL (140-440); RDW Coefficient of Variation % 13.2 % (11.5-15.5); Red Blood Count 2.91 m/uL (4.30-5.90); White Blood Count* 4.43 K/uL (4.50-11.00)
[2024-07-10 07:27] LABS: Slide Review Reflex No
[2024-07-10 07:28] LABS: Immature Reticulocyte Fraction 14.6 % (2.3-13.4); Reticulocyte Hemoglobin Equivi 29.8 pg (29.0-35.0); Reticulocyte Percent 1.3 % (0.5-2.0); Reticulocytes Absolute 0.04 # (0.03-0.08)
[2024-07-10 07:36] LABS: Chloride* 95 mmol/L (96-114)
[2024-07-10 07:37] LABS: Potassium* 3.2 mmol/L (3.6-5.1); Sodium* 126 mmol/L (135-149)
[2024-07-10 07:39] LABS: Blood Urea Nitrogen* 14 mg/dL (7-30); Creatinine* 0.7 mg/dL (0.5-1.5); Est. Creatinine Clearance* 60.59; Estimated Glomerular Filt Rate 97 ml/min
[2024-07-10 07:40] LABS: Anion Gap 9 mEq/L (7-15); Calcium* 8.5 mg/dL (8.4-10.6); Carbon Dioxide* 22 mmol/L (20-32); Glucose* 65 mg/dL (60-115)
[2024-07-10 07:43] LABS: C Reactive Protein* 2.3 mg/dL (0.5-1.0)
[2024-07-10 07:58] LABS: Troponin I* 0.12 ng/mL (0.01-0.04)
[2024-07-10] MEDS: MAGNESIUM IV 2 GM/50 ML PIGGYBACK IVPB (07:58)
--- NOTE | 2024-07-10 08:04 | PC.NURSE ---
Patient admitted from ED at 0115. Patient pleasant, alert and oriented. Denied pain. Stood at bedside with assist of one to use urinal.
[2024-07-10 08:15] LABS: Iron* 41 ug/dL (49-181)
[2024-07-10 08:25] LABS: Percent Iron Saturation 16 % (20-50); Total Iron Binding Capacity 262 ug/dL (261-462)
[2024-07-10] MEDS: ATORVASTATIN CALCIUM 40 MG TABLET PO (09:40)
[2024-07-10] MEDS: CITALOPRAM HYDROBROMIDE 20 MG TABLET 10 MG PO (09:41)
[2024-07-10] MEDS: ENOXAPARIN 40 MG/0.4 ML INJ SUBCUT (09:43)
[2024-07-10] MEDS: PANTOPRAZOLE SODIUM 40 MG INJ IVP ×2 (09:44→21:15)
[2024-07-10] MEDS: POTASSIUM BICARB 25 MEQ EFFERVESCENT TAB 50 MEQ PO (10:00)
[2024-07-10] MEDS: SODIUM CHLORIDE 0.9 % (FLUSH) 10 ML SYRINGE 5 ML IVF ×3 (10:04→21:40)
--- NOTE | 2024-07-10 10:13 | NUTR.NU ---
RDN with nutrition screen related to positive MST score. Patient admitted with diverticulitis and gastritis. Medical history significant for hemicolectomy and diverticulitis. Current weight 249lb 6.4oz; height 5ft 7in; BMI 39.1. Limited weight history recently. Weight noted to be about 280 lbs in 2022. Weight loss is not significant since 2022. Current diet is clear liquids. No nutrition interventions at this time due to current diet order. RDN will continue to monitor and follow-up prn.
--- NOTE | 2024-07-10 16:54 | P.IMPN_ITS ---
Progress Note: A&P Assessment and plan (1) Sepsis associated hypotension: Problem details: Patient admitted with low blood pressure, poor perfusion, elevated lactate, elevated troponin, tachycardia. Clinically much better as the day went on. Troponin remains borderline elevated. Suspect intra-abdominal infection S possible explanation for sepsis. Acute abdominal illness with poor oral intake contributing. Status: Acute (2) Abdominal pain: Problem details: Is had abdominal pain for the last few days, thought to be due to diverticulitis. Now mostly resolved Status: Acute (3) Nausea and vomiting: Problem details: Due to diverticulitis and or Cipro and Flagyl? Now resolved Status: Acute (4) Gastritis: Problem details: Started PPI. 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 Status: Acute (5) Diverticulitis: Problem details: Clinically improving with Cipro Flagyl and now Zosyn Status: Acute (6) Morbid obesity: Problem details: BMI 44 Status: Acute (7) Sinus tachycardia: Problem details: Has had some regular tachycardia with right bundle branch block. Clinically improving with resuscitation. Status: Resolved (8) Hypomagnesemia: Problem details: Patient not taking oral magnesium at home as prescribed. Replace with IV and resume oral magnesium. - Discussed importance of medication compliance with patient. Status: Acute (9) Heart failure with preserved ejection fraction: Problem details: Echo reviewed. Cardiac MRI reviewed from June 2022. Outpatient cardiology follow up has been arranged. Patient was previously on hydrochlorothiazide 50 mg daily. He was started torsemide 10 mg daily in anticipation of problems with volume control and edema off his hydrochlorothiazide. May also help manage his sodium. cardiac MRI in july 20 1. Hypertrophic cardiomyopathy with normal left ventricular systolic function, LVEF 63%. A. Borderline elongated anterior mitral leaflet of 2.7 cm. 1+ systolic anterior motion without resting LVOT obstruction. B. HILARY with a prominent increase in global myocardial mass and a maximal wall thickness of 2 cm. C. Mild increase in LV volumes and an increase in LVSVI of 37 ml/m2. 2. Normal right ventricular systolic function, RVEF 74%. A. Normal RV volumes and wall motion. 3. Small extent of replacement myocardial fibrosis. 4. Aortic valve is trileaflet with a stenotic and a nearly fused right and left coronary cusp. 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 5. Severe aortic regurgitation. A. Aortic regurgitant fraction 40% with a regurgitant volume 51 ml. B. Holo-diastolic retroaortic flow. 6. Severe left atrial enlargement. 7. Normal pericardium. 8. Normal aortic size. Status: Acute (10) Anemia: Problem details: History treatment for iron deficiency anemia. Still has anemia and iron deficiency. Status: Acute (11) Type 2 [place] (myocardial infarction): Problem details: Mild elevation of troponin likely due to stable heart disease in the context of acute illness and sepsis. Continue to monitor Status: Acute Plan Continue in hospital for ongoing monitoring of signs and symptoms of sepsis, ischemic heart disease, cardiac dysrhythmia, diverticulitis. Total time spent today is 60 minutes in reviewing past records, coordinating care and discussing with patient and other providers ongoing evaluation management. Subjective Date Seen: 07/10/24 Interval history: Sulaiman Trujillo is a 74 year old male who Presents to hospital with complaints of abdominal pain. Patient was seen in the emergency room a few days prior. At that time he presented to the hospital due to abdominal pain. When he presented on July 05, he was complaining of abdominal pain. Patient with previous hemicolectomy. He was noted to have afebrile, normotensive. CT scan of the abdomen which is consistent with gastritis, sigmoid diverticulitis. He was prescribed ciprofloxacin and metronidazole. He was discharged home with stable condition. Today the patient presented back to the hospital with complaints of weakness and elevated heart rate. In the emergency room, he was noted to have WBC count 6.4, hemoglobin of 10 point, sodium 127, creatinine 1.7, LFTs normal, normal troponin. CT scan of the abdomen showed diverticulitis and gastritis but improved. Patient denies any black in her stools. Normal in the ER, the patient was noted to have a heart rate of 120.. He was having atrial flutter with rapid rate. He was administered IV fluids and his heart rate improved and abruptly became sinus rhythm. Patient did have some elevated troponins of borderline elevated, thought to be related to the atrial flutter with rapid rate. In addition the patient did have some episode of hypotension in the ER. Which have now normalized. Additional history. Patient had little to eat and persistent nausea with vomiting over the past several days. He was able to take in some fluids. He was not taking most of his medications during the last few days as well. He is not aware of fever, chest pain. He did note some dyspnea. During the day today he has been hypotensive. He has received quite a bit of fluid resuscitation, about 3 L. we have stopped the fluid resuscitation because of concern about heart failure exacerbation. He reports feeling better now. Today he has been able to take in a clear liquid diet quite well. He reports his abdominal pain has resolved and he is no longer nauseated. Exam Narrative: Exam Narrative: He is alert and appears in no distress. Oropharynx is normal. Neck is supple without mass or adenopathy. Respirations are clear to auscultation. Cardiovascular: S1, S2, regular rate and rhythm. Abdomen: Bowel sounds active. Abdomen is soft without tenderness or mass. Extremities with trace edema bilaterally. Const: Vital Signs, click to edit/add: Vital Signs - 24 hr 07/09/24 17:53 07/09/24 18:04 07/09/24 18:05 Temperature Pulse Rate Pulse Rate [Pulse Oximeter] 55 L Respiratory Rate 22 18 19 Blood Pressure 118/87 Blood Pressure [Le ft Arm] Blood Pressure [Ri ght Arm] Blood Pressure [Ri ght Upper Arm] 89/57 L Pulse Oximetry 100 Oxygen Delivery Me thod Room Air 07/09/24 18:15 07/09/24 18:30 07/09/24 18:30 Temperature Pulse Rate Pulse Rate [Pulse Oximeter] 130 H Respiratory Rate 17 23 Blood Pressure Blood Pressure [Le ft Arm] Blood Pressure [Ri ght Arm] Blood Pressure [Ri ght Upper Arm] Pulse Oximetry Oxygen Delivery Ar thod 07/09/24 18:41 07/09/24 18:43 07/09/24 18:45 Temperature Pulse Rate Pulse Rate [Pulse Oximeter] Respiratory Rate 14 7 L 24 Blood Pressure Blood Pressure [Le ft Arm] Blood Pressure [Ri ght Arm] Blood Pressure [Ri ght Upper Arm] Pulse Oximetry Oxygen Delivery Ar thod 07/09/24 18:50 07/09/24 18:53 07/09/24 18:54 Temperature Pulse Rate Pulse Rate [Pulse Oximeter] 125 H Respiratory Rate 13 7 L Blood Pressure 86/54 L 94/57 L Blood Pressure [Le ft Arm] Blood Pressure [Ri ght Arm] Blood Pressure [Ri ght Upper Arm] Pulse Oximetry Oxygen Delivery Ar thod 07/09/24 19:01 07/09/24 19:15 03/12/25 19:22 Temperature Pulse Rate 126 H Pulse Rate [Pulse Oximeter] Respiratory Rate 10 L 26 H 17 Blood Pressure 92/53 L 111/67 Blood Pressure [Le ft Arm] Blood Pressure [Ri ght Arm] Blood Pressure [Ri ght Upper Arm] Pulse Oximetry 75 L Oxygen Delivery Me thod 07/09/24 19:30 07/09/24 19:41 07/09/24 19:45 Temperature Pulse Rate 127 H 127 H 129 H Pulse Rate [Pulse Oximeter] Respiratory Rate 13 20 8 L Blood Pressure 103/59 L Blood Pressure [Le ft Arm] Blood Pressure [Ri ght Arm] Blood Pressure [Ri ght Upper Arm] Pulse Oximetry 95 98 97 Oxygen Delivery Ar thod 07/09/24 19:58 07/09/24 20:39 07/09/24 20:42 Temperature Pulse Rate 121 H Pulse Rate [Pulse Oximeter] 124 H Respiratory Rate 38 H 47 H Blood Pressure 97/65 Blood Pressure [Le ft Arm] Blood Pressure [Ri ght Arm] Blood Pressure [Ri ght Upper Arm] Pulse Oximetry 96 Oxygen Delivery Ar thod 07/09/24 20:45 07/09/24 21:00 07/09/24 21:01 Temperature Pulse Rate 131 H 124 H 125 H Pulse Rate [Pulse Oximeter] Respiratory Rate 37 H 66 H 29 H Blood Pressure 89/72 L Blood Pressure [Le ft Arm] Blood Pressure [Ri ght Arm] Blood Pressure [Ri ght Upper Arm] Pulse Oximetry 100 99 100 Oxygen Delivery Me thod 07/09/24 21:02 07/09/24 21:15 07/09/24 21:21 Temperature Pulse Rate 123 H 118 H 122 H Pulse Rate [Pulse Oximeter] Respiratory Rate 34 H 3 L Blood Pressure 89/62 L Blood Pressure [Le ft Arm] Blood Pressure [Ri ght Arm] Blood Pressure [Ri ght Upper Arm] Pulse Oximetry 99 100 99 Oxygen Delivery Me thod 07/09/24 21:22 07/09/24 21:30 07/09/24 21:45 Temperature Pulse Rate 125 H 127 H Pulse Rate [Pulse Oximeter] Respiratory Rate 13 Blood Pressure 92/65 Blood Pressure [Le ft Arm] Blood Pressure [Ri ght Arm] Blood Pressure [Ri ght Upper Arm] Pulse Oximetry 98 100 Oxygen Delivery Me thod 07/09/24 21:49 07/09/24 21:52 07/09/24 22:00 Temperature Pulse Rate 122 H 127 H 129 H Pulse Rate [Pulse Oximeter] Respiratory Rate 12 13 11 L Blood Pressure 81/52 L 83/65 L Blood Pressure [Le ft Arm] Blood Pressure [Ri ght Arm] Blood Pressure [Ri ght Upper Arm] Pulse Oximetry 97 98 100 Oxygen Delivery Me thod 07/09/24 22:02 07/09/24 22:12 07/09/24 22:15 Temperature Pulse Rate 123 H 123 H 119 H Pulse Rate [Pulse Oximeter] Respiratory Rate 18 18 23 Blood Pressure 97/61 79/40 L 103/61 Blood Pressure [Le ft Arm] Blood Pressure [Ri ght Arm] Blood Pressure [Ri ght Upper Arm] Pulse Oximetry 98 97 93 Oxygen Delivery Me thod 07/09/24 22:16 07/09/24 22:17 07/09/24 22:20 Temperature Pulse Rate 118 H 117 H 125 H Pulse Rate [Pulse Oximeter] Respiratory Rate 26 H 14 21 Blood Pressure 84/49 L 71/54 L Blood Pressure [Le ft Arm] Blood Pressure [Ri ght Arm] Blood Pressure [Ri ght Upper Arm] Pulse Oximetry 96 100 98 Oxygen Delivery Me thod 07/09/24 22:21 07/09/24 22:25 07/09/24 22:30 Temperature Pulse Rate 114 H 128 H 115 H Pulse Rate [Pulse Oximeter] Respiratory Rate 13 15 12 Blood Pressure 93/50 L Blood Pressure [Le ft Arm] Blood Pressure [Ri ght Arm] Blood Pressure [Ri ght Upper Arm] Pulse Oximetry 99 100 95 Oxygen Delivery Me thod 07/09/24 22:32 07/09/24 22:45 07/09/24 22:47 Temperature Pulse Rate 118 H 110 H 115 H Pulse Rate [Pulse Oximeter] Respiratory Rate 7 L 9 L 27 H Blood Pressure 90/41 L 85/62 L Blood Pressure [Le ft Arm] Blood Pressure [Ri ght Arm] Blood Pressure [Ri ght Upper Arm] Pulse Oximetry 96 96 90 Oxygen Delivery Me thod 07/09/24 22:51 07/09/24 22:52 07/09/24 22:55 Temperature Pulse Rate 76 84 101 H Pulse Rate [Pulse Oximeter] Respiratory Rate 8 L 13 9 L Blood Pressure 106/63 93/65 Blood Pressure [Le ft Arm] Blood Pressure [Ri ght Arm] Blood Pressure [Ri ght Upper Arm] Pulse Oximetry 84 L 99 94 Oxygen Delivery Me thod 07/09/24 23:00 07/09/24 23:01 07/09/24 23:08 Temperature Pulse Rate 105 H 103 H 76 Pulse Rate [Pulse Oximeter] Respiratory Rate 14 14 19 Blood Pressure 79/59 L 106/57 L Blood Pressure [Le ft Arm] Blood Pressure [Ri ght Arm] Blood Pressure [Ri ght Upper Arm] Pulse Oximetry 96 96 99 Oxygen Delivery Me thod 07/09/24 23:09 07/09/24 23:15 07/09/24 23:17 Temperature Pulse Rate 106 H 102 H 103 H Pulse Rate [Pulse Oximeter] Respiratory Rate 16 10 L 15 Blood Pressure 112/57 L Blood Pressure [Le ft Arm] Blood Pressure [Ri ght Arm] Blood Pressure [Ri ght Upper Arm] Pulse Oximetry 94 89 96 Oxygen Delivery Me thod 07/09/24 23:30 07/09/24 23:32 07/09/24 23:33 Temperature Pulse Rate 84 79 78 Pulse Rate [Pulse Oximeter] Respiratory Rate 11 L 18 22 Blood Pressure 104/52 L Blood Pressure [Le ft Arm] Blood Pressure [Ri ght Arm] Blood Pressure [Ri ght Upper Arm] Pulse Oximetry 97 95 95 Oxygen Delivery Me thod 07/09/24 23:45 07/09/24 23:47 07/09/24 23:48 Temperature Pulse Rate 80 75 75 Pulse Rate [Pulse Oximeter] Respiratory Rate 32 H 12 8 L Blood Pressure 108/49 L Blood Pressure [Le ft Arm] Blood Pressure [Ri ght Arm] Blood Pressure [Ri ght Upper Arm] Pulse Oximetry 95 97 96 Oxygen Delivery Me thod 07/10/24 00:00 07/10/24 00:09 07/10/24 00:15 Temperature Pulse Rate 73 77 Pulse Rate [Pulse Oximeter] Respiratory Rate 32 H 19 20 Blood Pressure 114/56 L Blood Pressure [Le ft Arm] Blood Pressure [Ri ght Arm] Blood Pressure [Ri ght Upper Arm] Pulse Oximetry 98 96 Oxygen Delivery Me thod 07/10/24 00:17 07/10/24 00:30 07/10/24 00:32 Temperature Pulse Rate 74 76 75 Pulse Rate [Pulse Oximeter] Respiratory Rate 21 20 9 L Blood Pressure 95/48 L 99/47 L Blood Pressure [Le ft Arm] Blood Pressure [Ri ght Arm] Blood Pressure [Ri ght Upper Arm] Pulse Oximetry 95 96 96 Oxygen Delivery Me thod 07/10/24 00:45 07/10/24 00:47 07/10/24 01:04 Temperature 98.5 F Pulse Rate 75 85 Pulse Rate [Pulse Oximeter] 80 Respiratory Rate 21 9 L 18 Blood Pressure 99/50 L Blood Pressure [Le ft Arm] Blood Pressure [Ri ght Arm] 110/54 L Blood Pressure [Ri ght Upper Arm] Pulse Oximetry 95 96 96 Oxygen Delivery Me thod Room Air 07/10/24 05:50 07/10/24 08:15 07/10/24 11:00 Temperature 98.5 F 98.3 F Pulse Rate Pulse Rate [Pulse Oximeter] 73 101 H 71 Respiratory Rate 14 18 Blood Pressure Blood Pressure [Le ft Arm] 116/62 Blood Pressure [Ri ght Arm] 96/47 L 118/55 L Blood Pressure [Ri ght Upper Arm] Pulse Oximetry 95 98 97 Oxygen Delivery Me thod Room Air Room Air Room Air 07/10/24 15:00 Temperature 98.6 F Pulse Rate Pulse Rate [Pulse Oximeter] 84 Respiratory Rate 16 Blood Pressure Blood Pressure [Le ft Arm] 108/57 L Blood Pressure [Ri ght Arm] Blood Pressure [Ri ght Upper Arm] Pulse Oximetry 94 Oxygen Delivery Me thod Room Air Documenting provider has reviewed patient's vital signs: yes Labs Labs: Laboratory Results - last 24 hr 07/09/24 07/09/24 07/09/24 18:20 22:45 22:53 WBC 6.92 RBC 3.47 L Hgb 10.2 L 8.7 L Hct 29.9 L MCV 86 MCH 29 MCHC 34 RDW Coeff of Daniel 13.2 Plt Count 181 Neut % (Auto) 53.7 Lymph % (Auto) 31.9 [place] % (Auto) 9.0 Eos % (Auto) 4.2 Baso % (Auto) 0.9 Neut # (Auto) 3.72 Lymph # (Auto) 2.21 [place] # (Auto) 0.60 Eos # (Auto) 0.29 Baso # (Auto) 0.06 Abs Immat Gran (auto) 0.02 Imm/Tot Granulo (auto) 0.3 Absolute Retic Percent Retic Immature Retic Fraction Retic Hgb Equivalent VBG pH VBG pCO2 VBG pO2 VBG HCO3 Sodium 126 L 126 L Potassium 3.5 L 3.5 L Chloride 92 L 95 L Carbon Dioxide 18 L 20 Anion Gap 16 H 11 BUN 18 17 Creatinine 0.8 0.7 Estimated Creat Clear 60.59 60.59 Estimated GFR 93 97 Glucose 87 60 Lactate 2.6 H 1.4 Calcium 9.3 8.7 Magnesium 0.9 L* Iron TIBC % Saturation Total Bilirubin 0.6 Direct Bilirubin 0.4 AST 28 ALT 13 Alkaline Phosphatase 81 Troponin I 0.04 0.09 H* C-Reactive Protein NT-Pro-B Natriuret Pep 1770 Total Protein 6.8 Albumin 4.1 Lipase 100 TSH Urine Color Urine Appearance Urine pH Ur Specific [place] Urine Protein Urine Glucose (UA) Urine Ketones Urine Blood Urine Nitrite Urine Bilirubin Urine Urobilinogen Ur Leukocyte Esterase Urine RBC Urine WBC Ur Squamous Epith Cells Urine Bacteria Ethyl Alcohol < 0.01 L SARS-CoV-2 (PCR) Influenza Type A (PCR) Influenza Type B (PCR) RSV (PCR) Lab Acknowledgement Test Added POC Troponin I 0.04 07/09/24 07/10/24 07/10/24 Unknown 07:14 07:50 WBC 4.43 L RBC 2.91 L Hgb 8.6 L Hct 24.9 L MCV 86 MCH 30 MCHC 35 RDW Coeff of [place] 13.2 Plt Count 148 Neut % (Auto) 44.0 Lymph % (Auto) 37.9 [place] % (Auto) 10.4 Eos % (Auto) 7.2 H Baso % (Auto) 0.5 Neut # (Auto) 1.90 Lymph # (Auto) 1.70 [place] # (Auto) 0.50 Eos # (Auto) 0.30 Baso # (Auto) 0.00 Abs Immat Gran (auto) 0.00 Imm/Tot Granulo (auto) 0.0 Absolute Retic 0.04 Percent Retic 1.3 Immature Retic Fraction 14.6 H Retic Hgb Equivalent 29.8 VBG pH 7.412 VBG pCO2 38 L VBG pO2 32.9 VBG HCO3 24 Sodium 126 L Potassium 3.2 L Chloride 95 L Carbon Dioxide 22 Anion Gap 9 BUN 14 Creatinine 0.7 Estimated Creat Clear 60.59 Estimated GFR 97 Glucose 65 Lactate 0.7 Calcium 8.5 Magnesium Iron 41 L TIBC 262 % Saturation 16 L Total Bilirubin Direct Bilirubin AST ALT Alkaline Phosphatase Troponin I 0.12 H* C-Reactive Protein 2.3 H NT-Pro-B Natriuret Pep Total Protein Albumin Lipase TSH 1.070 Urine Color Yellow Urine Appearance Cloudy A Urine pH 5.5 Ur Specific [place] >= 1.030 Urine Protein 3+ A Urine Glucose (UA) Negative Urine Ketones 4+ A Urine Blood Trace-lysed A Urine Nitrite Negative Urine Bilirubin 3+ A Urine Urobilinogen 1.0 Ur Leukocyte Esterase Trace A Urine RBC 2-5 A Urine WBC 2-5 Ur Squamous Epith Cells Few Urine Bacteria Few A Ethyl Alcohol SARS-CoV-2 (PCR) Negative SARS-CoV-2 Influenza Type A (PCR) Negative PCR FLU A Influenza Type B (PCR) Negative PCR FLU B RSV (PCR) Negative PCR RSV Lab Acknowledgement Test Added POC Troponin I
--- NOTE | 2024-07-10 18:20 | PC.NURSE ---
End of Shift: Pt is A/Ox4 VS: Slight Hypotension with Tachycardia. Blood cultures pending. All other VS WNL. Bilateral expiratory rhonchi, no shortness of breath reported. MRSA swab pending. SBA with walker and belt. Last BM reported as yesterday, voiding well. Call light within reach. Clear liquid advanced to regular for dinner, no N/V. -Shawn Calle Student Nurse Reviewed by Bonnie Yanes RN BSN
[2024-07-10] MEDS: MELATONIN 3 MG TABLET PO (21:44)
[2024-07-10] MEDS: ACETAMINOPHEN 500 MG TABLET 1000 MG PO (23:36)
[2024-07-11] MEDS: PIPERACILLIN/TAZOBACTAM 3.375 GM in 0.9 % SODIUM CHLORIDE Mini-bag 100 ML IVPB ×2 (03:41→09:53)
[2024-07-11 03:50] VITALS: BP 133/59; PULSE 65; RESP 18; TEMP 36.6; O2SAT 94
--- NOTE | 2024-07-11 06:34 | PC.NURSE ---
End of shift summary: Pt has been A&O, afebrile and VSS overnight. He?s been call light appropriate. He ambulates Ax1 with 2ww with a steady gait. Pt?s only c/o pain overnight was a headache which PRN Tylenol was given for @ 2335 with adequate relief. O2 sats maintained > 90% on RA. TELE read SR with 1st degree block. He was continent of urine overnight, no BM. PIV in right wrist SL. IV Zosyn given q6H. MRSA pending (hx of bacteremia). 1500 mL fluid restriction ongoing. ?
[2024-07-11 06:36] LABS: Basophils Percent Auto 0.8 % (0.0-3.0); Eosinophils Percent Auto 10.6 % (0.0-7.0); Hemoglobin* 8.6 gm/dL (13.5-17.5); Lymphocytes Percent Auto 43.5 % (20-44); Mean Corpuscular HGB Conc 34 gm/dL (32-36); Mean Corpuscular Hemoglobin 30 pg (26-34); Mean Corpuscular Volume 86 fL (80-100); Monocytes Percent Auto 9.3 % (0.0-11.0); Neutrophils Percent Auto 35.8 % (42.0-72.0); Platelet Count* 133 K/uL (140-440); RDW Coefficient of Variation % 13.5 % (11.5-15.5); Red Blood Count 2.91 m/uL (4.30-5.90); White Blood Count* 3.98 K/uL (4.50-11.00)
[2024-07-11 06:44] LABS: HCO3 VBG 26 mmol/L (21-28); PCO2 VBG 42 mmHG (40-50); PO2 VBG 60.6 mmHG (25-47); pH VBG 7.394 (7.32-7.43)
[2024-07-11 06:54] LABS: Slide Review Reflex No
[2024-07-11 07:01] LABS: Chloride* 96 mmol/L (96-114)
[2024-07-11 07:02] LABS: Potassium* 3.2 mmol/L (3.6-5.1); Sodium* 126 mmol/L (135-149)
[2024-07-11 07:04] LABS: Blood Urea Nitrogen* 11 mg/dL (7-30); Creatinine* 0.5 mg/dL (0.5-1.5); Est. Creatinine Clearance* 60.59; Estimated Glomerular Filt Rate 107 ml/min
[2024-07-11 07:05] LABS: Anion Gap 5 mEq/L (7-15); Calcium* 8.5 mg/dL (8.4-10.6); Carbon Dioxide* 25 mmol/L (20-32); Glucose* 82 mg/dL (60-115)
[2024-07-11 07:06] LABS: Magnesium* 1.3 mg/dL (1.5-2.6)
[2024-07-11 07:08] LABS: C Reactive Protein* 2.3 mg/dL (0.5-1.0)
[2024-07-11 07:16] LABS: Troponin I* 0.04 ng/mL (0.01-0.04)
[2024-07-11 08:10] VITALS: BP 134/57; PULSE 65; PULSE 67; PULSE 68; RESP 18; TEMP 36.6; O2SAT 93
[2024-07-11] MEDS: POTASSIUM BICARB 25 MEQ EFFERVESCENT TAB PO ×2 (08:50→10:56)
[2024-07-11] MEDS: CITALOPRAM HYDROBROMIDE 20 MG TABLET 10 MG PO (08:52)
[2024-07-11] MEDS: MAGNESIUM OXIDE 400 MG TABLET PO ×2 (08:52→21:13)
[2024-07-11] MEDS: OMEPRAZOLE 20 MG CAPSULE DR PO ×2 (08:52→21:13)
[2024-07-11] MEDS: METOPROLOL SUCCINATE (XL) 25 MG TAB PO (08:53)
[2024-07-11] MEDS: ATORVASTATIN CALCIUM 40 MG TABLET PO (08:53)
[2024-07-11] MEDS: ENOXAPARIN 40 MG/0.4 ML INJ SUBCUT (08:54)
[2024-07-11] MEDS: METFORMIN 1,000 MG TABLET 1000 MG PO ×2 (08:54→18:13)
[2024-07-11] MEDS: MAGNESIUM IV 4 GM/100 ML PIGGYBACK IVPB (08:55)
--- NOTE | 2024-07-11 09:38 | P.IMPN_ITS ---
Progress Note: A&P Assessment and plan (1) Sepsis associated hypotension: Problem details: Patient admitted with low blood pressure, poor perfusion, elevated lactate, elevated troponin, tachycardia. Clinically much better as the day went on. Troponin, lactate, perfusion, tachycardia all improved with resuscitation. Suspect intra-abdominal infection was possible explanation for sepsis. Acute abdominal illness with poor oral intake, dehydration, low magnesium and potassium contributing. Status: Acute (2) Abdominal pain: Problem details: Is had abdominal pain for the last few days, thought to be due to diverticulitis. Now mostly resolved Status: Acute (3) Nausea and vomiting: Problem details: Due to diverticulitis and/or Cipro and Flagyl? Now resolved Status: Acute (4) Gastritis: Problem details: Started/increased PPI. 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 Status: Acute (5) Diverticulitis: Problem details: Clinically improving with Cipro/Flagyl and now Zosyn. Status: Acute (6) Sinus tachycardia: Problem details: Has had some regular tachycardia with right bundle branch block. Clinically improving with resuscitation. Status: Resolved (7) Hypomagnesemia: Problem details: Patient not taking oral magnesium at home as prescribed. Replace with IV and resume oral magnesium. - Discussed importance of medication compliance with patient. Status: Acute (8) Hypokalemia: Problem details: Unclear if this is due to acute gastrointestinal illness and poor oral intake or noncompliance with potassium supplementation Status: Acute (9) Heart failure with preserved ejection fraction: Problem details: echocardiogram July 10 2024: Final Impressions: 1. Normal left ventricular size, normal wall thickness, normal global systolic function, calculated EF of 66 %. 2. The aortic valve is trileaflet and calcified, moderate stenosis and moderate regurgitation. The aortic valve peak velocity is 3.6 m/s, the peak gradient is 51 mmHg, and the mean gradient is 32 mmHg. The aortic valve area is 1.37 cm?? with a dimensionless index of 0.42. The stroke volume index is 49.8 ml/m??. 3. Moderately enlarged left atrium. 4. The mitral valve is sclerotic, no mitral regurgitation. Mean diastolic gradient 3.6 mm Hg at a HR of 74. 5. Severe MAC present. Status: Acute (10) Anemia: Problem details: History treatment for iron deficiency anemia. Still has anemia and iron deficiency. Likely needs intravenous iron as an outpatient. Hemoglobin stable at 8.6 Status: Acute (11) Type 2 [place] (myocardial infarction): Problem details: Mild elevation of troponin likely due to stable heart disease in the context of acute illness and sepsis. Troponin down trending Status: Acute (12) Noncompliance with medication regimen: Problem details: Patient acknowledges not taking medicines for a few days due to illness. Ongoing concerns about patient discontinuing medications such as magnesium and or potassium supplement as well. Status: Acute (13) Weakness: Problem details: Very weak on admission. Much improved. Status: Acute (14) Polyp of duodenum: Problem details: Found to have a polyp in his duodenum. Referred to [place] [facility] in 12/2022 for endoscopic removal. Villous adenoma Status: Acute (15) Morbid obesity: Problem details: BMI 44 Status: Acute (16) Obstructive sleep apnea: Problem details: Recommended he have someone bring his CPAP from home Status: Acute (17) Hyponatremia: Problem details: Previous history of this. Sodium is now stable at 126. Continue to hold spironolactone. Fluid restriction. Status: Acute Plan Continue in hospital for managing above medical problems and transitioning court outpatient management. As tolerated will reintroduce home medications. Continue to replace electrolytes. Anticipate discharge to home possibly as soon as tomorrow if doing well per Time Spent With Patient Total time spent: Total time spent today is 55 minutes in coordination of care and discussing with patient and other providers ongoing management of multiple problems noted above Subjective Date Seen: 07/11/24 Interval history: Sulaiman Trujillo is a 74 year old male who Presents to hospital with complaints of abdominal pain. Patient was seen in the emergency room a few days prior. At that time he presented to the hospital due to abdominal pain. When he presented on July 05, he was complaining of abdominal pain. Patient with previous hemicolectomy. He was noted to have afebrile, normotensive. CT scan of the abdomen which is consistent with gastritis, sigmoid diverticulitis. He was prescribed ciprofloxacin and metronidazole. He was discharged home with stable condition. Today the patient presented back to the hospital with complaints of weakness and elevated heart rate. In the emergency room, he was noted to have WBC count 6.4, hemoglobin of 10 point, sodium 127, creatinine 1.7, LFTs normal, normal troponin. CT scan of the abdomen showed diverticulitis and gastritis but improved. Patient denies any black in her stools. Normal in the ER, the patient was noted to have a heart rate of 120.. He was having atrial flutter with rapid rate. He was administered IV fluids and his heart rate improved and abruptly became sinus rhythm. Patient did have some elevated troponins of borderline elevated, thought to be r elated to the atrial flutter with rapid rate. In addition the patient did have some episode of hypotension in the ER. Which have now normalized. Additional history. Patient had little to eat and persistent nausea with vomiting over the past several days. He was able to take in some fluids. He was not taking most of his medications during the last few days as well. He is not aware of fever, chest pain. He did note some dyspnea. During the day today he has been hypotensive. He has received quite a bit of fluid resuscitation, about 3 L. we have stopped the fluid resuscitation because of concern about heart failure exacerbation. He reports feeling better now. Today he has been able to take in a clear liquid diet quite well. He reports his abdominal pain has resolved and he is no longer nauseated. 07/11/2024: Patient reports feeling better today. He is tolerating a diet. His abdominal pain is much better. Reports his breathing is better. He is feeling stronger. Exam Narrative: Exam Narrative: He is alert and appears in no distress. He is oriented to his circumstances. Respirations are clear to auscultation. Cardiovascular: S1, S2, regular rate and rhythm, 2/6 systolic ejection murmur. Abdomen: Bowel sounds active. Abdomen is soft without tenderness. Extremities without edema Const: Vital Signs, click to edit/add: Vital Signs - 24 hr 07/10/24 11:00 07/10/24 15:00 07/10/24 16:00 Temperature 98.3 F 98.6 F Pulse Rate 96 Pulse Rate [Pulse Oximeter] 71 84 Respiratory Rate 18 16 Blood Pressure [Le ft Arm] 116/62 108/57 L Blood Pressure [Ri ght Arm] Pulse Oximetry 97 94 Oxygen Delivery Me thod Room Air Room Air 07/10/24 19:25 07/10/24 23:00 07/10/24 23:30 Temperature 98.3 F Pulse Rate 67 Pulse Rate [Pulse Oximeter] 75 70 Respiratory Rate 18 20 Blood Pressure [Le ft Arm] Blood Pressure [Ri ght Arm] 118/58 L Pulse Oximetry 97 Oxygen Delivery Me thod Room Air 07/10/24 23:30 07/11/24 03:50 07/11/24 08:10 Temperature 98.3 F 97.9 F Pulse Rate Pulse Rate [Pulse Oximeter] 70 65 65 Respiratory Rate 20 18 18 Blood Pressure [Le ft Arm] Blood Pressure [Ri ght Arm] 118/49 L 133/59 L Pulse Oximetry 92 94 Oxygen Delivery Me thod Room Air Room Air 07/11/24 08:10 Temperature 98 F Pulse Rate Pulse Rate [Pulse Oximeter] 67 Respiratory Rate 18 Blood Pressure [Le ft Arm] Blood Pressure [Ri ght Arm] 134/57 L Pulse Oximetry 93 Oxygen Delivery Me thod Room Air Documenting provider has reviewed patient's vital signs: yes Labs Labs: Laboratory Results - last 24 hr 07/11/24 06:07 WBC 3.98 L RBC 2.91 L Hgb 8.6 L Hct 25.0 L MCV 86 MCH 30 MCHC 34 RDW Coeff of Daniel 13.5 Plt Count 133 L Neut % (Auto) 35.8 L Lymph % (Auto) 43.5 [place] % (Auto) 9.3 Eos % (Auto) 10.6 H Baso % (Auto) 0.8 Neut # (Auto) 1.40 L Lymph # (Auto) 1.70 [place] # (Auto) 0.40 Eos # (Auto) 0.40 Baso # (Auto) 0.00 Abs Immat Gran (auto) 0.00 Imm/Tot Granulo (auto) 0.0 VBG pH 7.394 VBG pCO2 42 VBG pO2 60.6 H VBG HCO3 26 Sodium 126 L Potassium 3.2 L Chloride 96 Carbon Dioxide 25 Anion Gap 5 L BUN 11 Creatinine 0.5 Estimated Creat Clear 60.59 Estimated GFR 107 Glucose 82 Calcium 8.5 Magnesium 1.3 L Troponin I 0.04 C-Reactive Protein 2.3 H
[2024-07-11] MEDS: TORSEMIDE 5 MG TABLET PO (09:52)
[2024-07-11] MEDS: SODIUM CHLORIDE 0.9 % (FLUSH) 10 ML SYRINGE 5 ML IVF ×2 (09:53→21:13)
[2024-07-11 12:00] VITALS: BP 105/56; PULSE 85; RESP 18; TEMP 36.4; O2SAT 96
[2024-07-11] MEDS: POTASSIUM CHLORIDE 10 MEQ CAPSULE ER 20 MEQ PO (12:17)
[2024-07-11 15:00] VITALS: BP 115/54; PULSE 83; PULSE 84; RESP 18; TEMP 36.7; O2SAT 95
--- NOTE | 2024-07-11 15:14 | PC.NURSE ---
Shift note: The pt has been pleasant and cooperative; denied chest pain and short of breath; SPo2 has been in the 90s. Denied abdominal pain and nausea, vomiting. Up with 1-assist a walker . Po Potassium and IV magnesium were given as ordered. HR has been in the 70 and 80s at rest. Tele has been SR with 1st AVB. The pt appeared without any acute disstess
[2024-07-11] MEDS: AMOXICILLIN/CLAVULANATE 875 mg/125 mg TABLET PO (18:13)
[2024-07-11 19:00] VITALS: BP 115/48; PULSE 96; RESP 18; TEMP 36.8; O2SAT 96
[2024-07-11] MEDS: MELATONIN 3 MG TABLET PO (22:35)
[2024-07-11] MEDS: ACETAMINOPHEN 500 MG TABLET 1000 MG PO (22:35)
[2024-07-11 23:00] VITALS: BP 145/57; PULSE 67; PULSE 69; RESP 18; TEMP 36.7; O2SAT 98
[2024-07-12 03:00] VITALS: BP 90/68; PULSE 66; RESP 16; O2SAT 93
[2024-07-12 06:13] LABS: Basophils Absolute Auto 0.05 K/uL (0.00-0.30); Basophils Percent Auto 1.1 % (0.0-3.0); Eosinophils Percent Auto 10.1 % (0.0-7.0); Hematocrit 24.7 % (37.0-53.0); Hemoglobin* 8.4 gm/dL (13.5-17.5); Lymphocytes Absolute Auto 1.82 K/uL (0.90-2.90); Lymphocytes Percent Auto 39.1 % (20-44); Mean Corpuscular HGB Conc 34 gm/dL (32-36); Mean Corpuscular Hemoglobin 29 pg (26-34); Mean Corpuscular Volume 86 fL (80-100); Monocytes Percent Auto 8.4 % (0.0-11.0); Neutrophils Percent Auto 41.3 % (42.0-72.0); Platelet Count* 139 K/uL (140-440); RDW Coefficient of Variation % 13.5 % (11.5-15.5); Red Blood Count 2.87 m/uL (4.30-5.90); White Blood Count* 4.65 K/uL (4.50-11.00)
[2024-07-12 06:19] LABS: Slide Review Reflex No
--- NOTE | 2024-07-12 07:02 | PC.NURSE ---
Pt alert, oriented and vitally stable. Pt moves via sba, tolerates well. Tele showed NSR with BBB and 1st degree AV. Pain rated 3/10, prn tylenol given. Pt in bed, appears to be resting, call light within reach.?
[2024-07-12 07:06] LABS: Chloride* 96 mmol/L (96-114); Potassium* 3.7 mmol/L (3.6-5.1); Sodium* 126 mmol/L (135-149)
[2024-07-12 07:09] LABS: Anion Gap 6 mEq/L (7-15); Blood Urea Nitrogen* 12 mg/dL (7-30); Carbon Dioxide* 24 mmol/L (20-32); Creatinine* 0.5 mg/dL (0.5-1.5); Est. Creatinine Clearance* 60.59; Estimated Glomerular Filt Rate 107 ml/min; Glucose* 75 mg/dL (60-115)
[2024-07-12 07:10] LABS: Calcium* 8.4 mg/dL (8.4-10.6)
[2024-07-12 07:15] VITALS: PULSE 57
[2024-07-12 08:15] VITALS: BP 144/67; PULSE 60; RESP 16; TEMP 36.5; O2SAT 93
[2024-07-12] MEDS: AMOXICILLIN/CLAVULANATE 875 mg/125 mg TABLET PO (08:29)
[2024-07-12] MEDS: METOPROLOL SUCCINATE (XL) 25 MG TAB PO (08:29)
[2024-07-12] MEDS: CITALOPRAM HYDROBROMIDE 20 MG TABLET 10 MG PO (08:29)
[2024-07-12] MEDS: METFORMIN 1,000 MG TABLET 1000 MG PO (08:29)
[2024-07-12] MEDS: OMEPRAZOLE 20 MG CAPSULE DR PO (08:29)
[2024-07-12] MEDS: ATORVASTATIN CALCIUM 40 MG TABLET PO (08:29)
[2024-07-12] MEDS: TORSEMIDE 5 MG TABLET PO (08:29)
[2024-07-12] MEDS: MAGNESIUM OXIDE 400 MG TABLET PO (08:29)
[2024-07-12] MEDS: POTASSIUM CHLORIDE 10 MEQ CAPSULE ER 20 MEQ PO (08:30)
[2024-07-12] MEDS: ENOXAPARIN 40 MG/0.4 ML INJ SUBCUT (08:30)
--- NOTE | 2024-07-12 08:34 | PM.DS1 ---
DS: Providers Provider Date Seen: 07/12/24 Date of admission: 07/10/24 09:14 Primary care physician: Jose Linares MD Admitting Clinician: Matthieu Tang MD Consults: OT, PT Attending Physician on discharge: Cristy Russo MD Date of Discharge: 07/12/24 DS: Diagnosis Discharge Diagnosis (1) Sepsis associated hypotension: Status: Acute Problem details: - on admission noted to have hypotension, poor perfusion, elevated lactate, elevated troponin, tachycardia; clinically much better as the day went on - troponin, lactate, perfusion, tachycardia all improved with resuscitation - Suspect intra-abdominal infection (diverticulitis) was possible explanation with poor oral intake, dehydration, low magnesium and potassium contributing (2) Abdominal pain: Status: Acute Problem details: - resolved during stay, tolerating regular diet 314pm and 07/12 (3) Nausea and vomiting: Status: Acute Problem details: - possibly iatrogenic (was on Cipro and Flagyl), resolved during stay (4) Gastritis: Status: Acute Problem details: - continued PPI, h/o duodenal ulcer (5) Diverticulitis: Status: Acute Problem details: - improved on admission imaging, clinically back to baseline upon d/c (6) Sinus tachycardia: Status: Resolved Problem details: - improved with IVF resuscitation (7) Hypomagnesemia: Status: Acute Problem details: - not taking oral magnesium at home as prescribed, replaced IV and resumed oral magnesium - Discussed importance of medication compliance with patient (8) Hypokalemia: Status: Acute Problem details: - unclear if due to acute gastrointestinal illness and poor oral intake or noncompliance with potassium supplementation, normal upon d/c (9) Heart failure with preserved ejection fraction: Status: Acute Problem details: - TTE July 10 2024: Final Impressions: 1. Normal left ventricular size, normal wall thickness, normal global systolic function, calculated EF of 66 %. 2. The aortic valve is trileaflet and calcified, moderate stenosis and moderate regurgitation. The aortic valve peak velocity is 3.6 m/s, the peak gradient is 51 mmHg, and the mean gradient is 32 mmHg. The aortic valve area is 1.37 cm?? with a dimensionless index of 0.42. The stroke volume index is 49.8 ml/m??. 3. Moderately enlarged left atrium. 4. The mitral valve is sclerotic, no mitral regurgitation. Mean diastolic gradient 3.6 mm Hg at a HR of 74. 5. Severe MAC present. (10) Anemia: Status: Acute Problem details: - history of this, persistent, Likely needs intravenous iron as an outpatient. Hemoglobin stable at 8.6 (11) Type 2 [place] (myocardial infarction): Status: Acute Problem details: - mild elevation of troponin likely due to stable heart disease in the context of acute illness and sepsis. Troponin down trending, no chest pain (12) Noncompliance with medication regimen: Status: Acute Problem details: - education, met with OT and understands importance of daily medication compliance (13) Weakness: Status: Acute Problem details: - baseline on 07/12/24, followed by therapies (14) Obstructive sleep apnea: Status: Acute Problem details: - continue home CPAP upon d/c (15) Hyponatremia: Status: Acute Problem details: - history of this, Na stable at 126, holding Spironolactone, outpatient PCP f/u DS: Summary Hospital Course Hospital Course: Sulaiman was admitted to the hospital on 07/10/24 for weakness, hypotension and tachycardia in the setting of recent illness. He had been seen on 07/05/24 and diagnosed with diverticulitis at that time, treated as an outpatient with Brendan and Fernando. Upon return to the emergency room on 07/09/2024, he was weak, hypotensive, and tachycardic. Additional findings included elevated lactate, critically low Magnesium at 0.9, hypokalemia, persistent iron deficiency anemia with Hgb of 8.[address] scan exhibited improvement of his diverticulitis. Blood and urine cultures negative. Sulaiman was treated with IV fluids, IV electrolyte replacement, IV antibiotics. He clinically improved over the course of his stay and was tolerating a regular diet and oral electrolyte replacement by 07/11/2024. He remained stable and was medically appropriate for discharge on 07/12/2024. Medication changes as noted below for his lower blood pressure and electrolyte disturbances. Antibiotics discontinued as he had completed a 7 day course of treatment and had no further LLQ pain, fever, or other symptoms. He will have close PCP follow-up to reassess medications, blood pressure, hemoglobin, and electrolyte levels. Status at Discharge Overall status at discharge: patient is progressing back to baseline Time Spent with Patient Time attestation: Total time spent providing and/or coordinating discharge services: Time spent: Greater than 30 minutes Specific discharge activities: Medication reconciliation, patient education, chart review Exam Narrative: Exam Narrative: GEN: Alert HEENT: EOMIs bilaterally, + conjunctival pallor, no scleral icterus CV: RRR, + systolic murmur heard best in left mid axillary line R: LCTA bilaterally without concerning wheezing Ext: wwp, 1+ BLE, symmetric Skin: No concerning skin lesions or rashes on exposed skin Neuro: Nonfocal Psych: Appropriate Const: Vital Signs, click to edit/add: Vital Signs - 24 hr 07/11/24 12:00 07/11/24 15:00 07/11/24 15:00 Temperature 97.6 F 98.1 F Pulse Rate 83 Pulse Rate [Pulse Oximeter] 85 84 Respiratory Rate 18 18 Blood Pressure [Le ft Arm] 115/54 L Blood Pressure [Ri ght Arm] 105/56 L Pulse Oximetry 96 95 Oxygen Delivery Me thod Room Air Room Air 07/11/24 15:00 07/11/24 19:00 07/11/24 23:00 Temperature 98.2 F Pulse Rate 67 Pulse Rate [Pulse Oximeter] 84 96 Respiratory Rate 18 18 Blood Pressure [Le ft Arm] 115/48 L Blood Pressure [Ri ght Arm] Pulse Oximetry 96 Oxygen Delivery Me thod Room Air 07/11/24 23:00 07/11/24 23:00 07/12/24 03:00 Temperature 98.1 F Pulse Rate Pulse Rate [Pulse Oximeter] 69 69 66 Respiratory Rate 18 18 16 Blood Pressure [Le ft Arm] 145/57 H 90/68 Blood Pressure [Ri ght Arm] Pulse Oximetry 98 93 Oxygen Delivery Hi thod Room Air Room Air 07/12/24 07:15 07/12/24 08:15 07/12/24 08:15 Temperature 97.7 F Pulse Rate 57 L Pulse Rate [Pulse Oximeter] 60 60 Respiratory Rate 16 Blood Pressure [Le ft Arm] 144/67 H Blood Pressure [Ri ght Arm] Pulse Oximetry 93 Oxygen Delivery Hi thod Room Air DS: Data Data Completed and Pending Labs on day of discharge: Labs from last 24 hours 07/12/24 05:51 WBC 4.65 RBC 2.87 L Hgb 8.4 L Hct 24.7 L MCV 86 MCH 29 MCHC 34 RDW Coeff of Daniel 13.5 Plt Count 139 L Neut % (Auto) 41.3 L Lymph % (Auto) 39.1 [place] % (Auto) 8.4 Eos % (Auto) 10.1 H Baso % (Auto) 1.1 Neut # (Auto) 1.90 Lymph # (Auto) 1.82 [place] # (Auto) 0.40 Eos # (Auto) 0.50 Baso # (Auto) 0.05 Abs Immat Gran (auto) 0.00 Imm/Tot Granulo (auto) 0.0 Sodium 126 L Potassium 3.7 Chloride 96 Carbon Dioxide 24 Anion Gap 6 L BUN 12 Creatinine 0.5 Estimated Creat Clear 60.59 Estimated GFR 107 Glucose 75 Calcium 8.4 Preliminary micro results at discharge 07/09/24 18:20 Blood Culture - Preliminary Blood NO GROWTH AFTER 48 HOURS Discharge Plan Discharge Disposition: Home, Self-Care Date of Admission: 07/10/24 09:14 Attending Provider on Discharge: Cristy Russo Primary Care Provider: Jose Linares Condition: Improved Anticipated Discharge Date/Time: 07/12/24 08:14 Discharge Medications: New magnesium oxide 400 mg (241.3 mg magnesium) Tablet 400 mg PO BID Qty: 60 0RF metoprolol succinate 25 mg Tablet Extended Release 24 Hr 25 mg PO DAILY Qty: 30 0RF potassium chloride 10 mEq Capsule, Extended Release 20 meq PO DAILYWM Qty: 60 0RF Continued atorvastatin 40 mg tablet 40 mg PO DAILY citalopram 10 mg tablet 10 mg PO DAILY metformin 1,000 mg tablet 1,000 mg PO BIDWM Patient Comments: pantoprazole 40 mg tablet,delayed release (DR/EC) 40 mg PO DAILY cholecalciferol (vitamin D3) 25 mcg (1,000 unit) tablet 1,000 unit PO DAILY lisinopril 10 mg tablet 20 mg PO DAILY torsemide 5 mg Tablet 5 mg PO DAILY Qty: 30 0RF aspirin [Children's Aspirin] 81 mg Tablet,Chewable 81 mg PO DAILY Qty: 30 0RF polyethylene glycol 3350 [Miralax] 17 gram/dose powder 17 g PO BID PRN (Reason: constipation) Qty: 238 0RF Held amlodipine 5 mg tablet 5 mg PO DAILY Hold Instructions: hold until f/u with Milagros spironolactone 25 mg tablet 25 mg PO DAILY Hold Instructions: hold until f/u with Dr. Linares Discontinued metoprolol succinate 50 mg tablet extended release 24 hr 50 mg PO DAILY ciprofloxacin HCl 500 mg tablet 500 mg PO BID 10 Days Qty: 20 0RF metronidazole 500 mg tablet 500 mg PO TID 10 Days Qty: 30 0RF Discharge Orders: Discharge Order (Routine); Ordered 07/12/24 Ordered By: Cristy Russo Patient Education: Metoprolol (By mouth), Potassium Supplement (By mouth), Magnesium Oxide (By mouth), Anemia (DC) Additional Instructions: Upon discharge, these are your medication changes: 1. You are HOLDING your Amlodipine and Spironolactone. Your blood pressure has been on the lower side, so don't restart these until you see Dr. Linares in followup 2. You are STOPPING your antibiotics as your diverticulitis is better and you are eating and drinking without pain or nausea/vomiting 3. You are CHANGING your Metoprolol dose (decrease from 50 to 25mg) 4. You are ADDING Magnesium and Potassium to your regimen At the pharmacy, you have prescriptions for Magnesium, Potassium and the new Metoprolol dose. Monitor for lightheadedness/dizziness, see Dr. Linares as scheduled. Activity Level: Activity as Tolerated and No strenuous activity Discharge Diet: Regular Follow Up Appointments: Jose Linares MD [Primary Care Provider] - 07/16/24 2:30 pm (Follow-up at [facility] with PCP) Forms: [email or web address] Info Instructions
[2024-07-12] MEDS: SODIUM CHLORIDE 0.9 % (FLUSH) 10 ML SYRINGE 5 ML IVF (08:56)
--- NOTE | 2024-07-12 11:58 | PC.NURSE ---
IV DC'd cath tip intact. DC instructions given verbally and in writing. Pt understands medication changes and agrees to understanding to update weekly pill container with changes. Ex-, Erin update over phone on medication changes. They both agree to worm picker medications @[facility] pharmacy. Answered all questions. DC to Carolina's car via w/c @ [phone]
== END 2024-07-12 11:24 | disposition home or self-care (01) | DRG 871 ==
LOC: ED 07-10 00:22 → MEDSURG 07-10 01:04
PROVIDERS: Family Medicine; Admitting Provider Student in an Organized Health Care Education/Training Program; Emergency Provider Emergency Medicine; PCP Family Medicine; Visit Provider Student in an Organized Health Care Education/Training Program
DX: A41.9 Sepsis, unspecified organism (principal); I21.A1 Myocardial infarction type 2; K57.32 Diverticulitis of large intestine without perforation or abscess without bleeding; I48.92 Unspecified atrial flutter; Z68.41 Body mass index [BMI] 40.0-44.9, adult; I50.30 Unspecified diastolic (congestive) heart failure; I43 Cardiomyopathy in diseases classified elsewhere; E87.1 Hypo-osmolality and hyponatremia; K29.00 Acute gastritis without bleeding; E83.42 Hypomagnesemia; E86.0 Dehydration; E87.6 Hypokalemia; D50.9 Iron deficiency anemia, unspecified; E11.69 Type 2 diabetes mellitus with other specified complication; I35.0 Nonrheumatic aortic (valve) stenosis; E66.01 Morbid (severe) obesity due to excess calories; Z98.84 Bariatric surgery status; Z79.01 Long term (current) use of anticoagulants; I11.0 Hypertensive heart disease with heart failure; G47.33 Obstructive sleep apnea (adult) (pediatric); R53.1 Weakness; R63.4 Abnormal weight loss; I45.10 Unspecified right bundle-branch block; I44.0 Atrioventricular block, first degree; Z79.84 Long term (current) use of oral hypoglycemic drugs; I25.10 Atherosclerotic heart disease of native coronary artery without angina pectoris; E78.5 Hyperlipidemia, unspecified; N40.1 Benign prostatic hyperplasia with lower urinary tract symptoms; Z87.891 Personal history of nicotine dependence; R11.2 Nausea with vomiting, unspecified; R00.0 Tachycardia, unspecified
CPT/HCPCS: 36415; 51798; 71046; 74177; 80048; 80076; 81001; 82077; 82803; 82962; 83540; 83550; 83605; 83690; 83735; 83880; 84443; 84484; 85018; 85025; 85045; 86140; 87040; 87081; 87086; 87631; 93005; 93306; 94761; 97116; 97161; 97165; 97535; 99285; 99291; A9270; G0378; J1650; J2405; J2470; J2543; J3475; J7030; J7120; Q9967

== ENCOUNTER 2024-07-24 09:42 | Inpatient (IN) | payer MEDICARE, SELFPAY ==
[2024-07-24] VITALS (11 sets, daily range): BP systolic 102–137; BP diastolic 45–73; PULSE 51–66; RESP 8–20; TEMP 36.2–36.8; O2SAT 92–100; BMI 38.6; BMI 38.0
--- OUTSIDE RECORDS SUMMARY | 2024-07-24 09:46 | XMS_ITS | Clinical Summary ---
Author Organization [facility] Address [address] [place] [address] Care Team Providers Care Associate Application Developer Name Role Phone Jose Linares MD Primary Care Provider + [facility] Unavailable [phone] Allergies Active Allergy Reactions Criticality Noted Date Comments Nsaids (Non-Steroidal Anti-Inflammatory Drug) Other - Describe In Comment Field 04/14/2011 Patient had bariatric surgery. Should not take oral NSAID's ever. Medications blood-glucose meterIndication s:Type II or unspecified type diabetes mellitus without mention of complication, not stated as uncontrolled (HC) Dispense glucose meter, test strips and lancets [...] 2 times/day. 300 Each 3 021 Active aspirin chewable 81 mg chewable tabletIndicatio ns:Coronary artery disease, unspecified vessel or lesion type, unspecified whether angina present, unspecified whether [place] or transplanted heart Chew 1 Tablet (81 mg) by mouth once daily with a meal. 0 023 Active atorvastatin (LIPITOR) 40 mg tabletIndicatio ns:ASHD (arteriosclerot ic heart disease) Take 1 Tablet (40 mg) by mouth once daily. 90 Tablet 3 024 Active metFORMIN (GLUCOPHAGE) 1,000 mg tabletIndicatio ns:Diabetes mellitus without complication (HC) TAKE ONE TABLET (1000MG) TWICE DAILY WITH MEALS 180 Tablet 3 024 Active Simethicone (Gas-X) 125 mg capsuleIndicati [...] every morning. 90 Tablet 1 025 Active magnesium oxide 400 mg tablet Take by mouth. 025 Active potassium chloride 10 mEq Controlled-rele ase capsule Take by mouth. 025 Active metoprolol succinate 25 mg Sustained-Relea se tablet Take 25 mg by mouth once daily. Active guaiFENesin (MUCINEX) 600 mg Extended-Releas e tablet Take 1 Tablet (600 mg) by mouth 2 times daily if needed for Expectoration. 0 022 2024 Discontinued(* Med complete/Regim en complete/Level of care change) loperamide (IMODIUM) 2 mg capsule TAKE ONE CAPSULE BY MOUTH TWICE DAILY NEEDED* 023 2024 Discontinued(* Med complete/Regim en complete/Level of care change) ferrous sulfate, 65 mg elemental, tabletIndicatio ns:Anemia due to acute blood loss Take 1 Tablet (325 mg) by mouth once daily with a meal. 100 Tablet 3 023 2024 Discontinued(* Med complete/Regim en complete/Level of care change) citalopram (CELEXA) 10 mg tabletIndicatio ns:Depression, recurrent Take 1 Tablet (10 mg) by mouth every morning. 90 Tablet 3 024 2024 Discontinued metoprolol succinate (TOPROL XL) 50 mg sustained-relea se tabletIndicatio ns:Hypertension , unspecified type Take 1 Tablet (50 mg) by mouth once daily. 90 Tablet 3 024 2024 Discontinued(* Medication adjustment) magnesium glycinate 100 mg magnesium capIndications: Hypomagnesemia Take 1 Capsule by mouth once daily. 024 2024 Discontinued(* Medication adjustment) ciprofloxacin 500 mg tablet Take 1 Tablet by mouth two times daily. 025 2024 Discontinued(* Med complete/Regim en complete/Level of care change) metroNIDAZOLE 500 mg tablet Take 1 Tablet by mouth every 8 hours. 025 2024 Discontinued(* Med complete/Regim en complete/Level of care change) Active Problems Problem Noted Date Diagnosed Date [...] mention of complication 12/04/2011 Acute coronary syndrome 0409/2010 Pituitary adenoma 06/27/2022 Encounters Date Type Department Care Team Description 07/24/2024 Telephone [facility] [address] [place] [address] [phone] Jose Linares MD returning call (Erin is the patient's ex and who the patient stay with. Erin is returning a call from this morning to the patient.) 07/24/2024 Telephone [facility] [address] [place] [address] Jose Sousa MD Abnormal Lab Results 07/23/2024 9:35 AM CDT Office Visit [facility] [address] [place] [address] Jose Linares MD ER Follow up ([place], abdominal pain, 07/05/24 and 07/10/24, hospital) 07/22/2024 Travel 07/10/2024 2:00 PM CDT Ancillary Procedure [facility] [place] [facility] [address] [place] [address] 07/10/2024 Lab Requisition [facility] [phone] Gely Nina MD 07/09/2024 Orders Only [facility] Scanner 1 scan: (1-Ord) [place], CT ABD PELVIS W/ CON, 07/09/2024 07/09/2024 Orders Only [facility] Scanner 1 scan: (1-Ord) [facility], CHEST 2VIEWS, 07/09/2024 07/05/2024 Orders Only [facility] Scanner 1 scan: (1-Ord) [facility], CT ABDOMEN PELVIS W CON, 07/05/2024 06/26/2024 Refill [facility] [address] [place] [address] Jose Linares MD Refill Request (Citalopram) from Last 3 Months Immunizations Immunization Administration Dates Next Due AMB Influenza, IIV3 (Age >=3 years)(Flu Clinic Only) 02/26/2013 COVID-19 vaccine (Moderna 100mcg/0.5mL) NIDIA RUIZ 10/28/2021,08/26/2021,02/20/2021,07/27,06/29/2020 COVID-19 vaccine (Pfizer-Bio NTech 30mcg/0.3mL) 12YO+ BIVALENT PF, MDV 09/05/2022 COVID-19 vaccine ([employer] NTech 30mcg/0.3mL) PF, MDV 08/05/2022,10/28/2021 Influenza A (H1N1), Inactivated 04/16/2009 Influenza A (H1N1), Inactiva efraín (Age >=3 Years) 03/21/2010 Influenza Virus, Unspecified 01/13/2023, 02/04/2022,01/28/2022,02/16 Influenza, High-dose Inactivated 024,02/18/2018,02/09/2017,02/13,02/25/2015 Influenza, High-dose Quadriv alent Inactivated 01/16/2021 Influenza, [...] lonely or isolated from those around you? 0 07/23/2024 Financial Resource Strain Answer Date R ecorded Difficulty of Paying Living Expenses 3 07/23/2024 Difficulty of Paying Living Expenses Not on file 07/23/2024 Food Insecurity Answer Date Recorded Do you worry your food will run out before you are able to buy more? 1 07/23/2024 Transportation Needs Answer Date Record ed Does lack of transportation keep you from medica l appointments? 1 07/23/2024 Does lack of transportation keep you from work, meetings or getting things that you need? 1 07/23/2024 Housing Stability Answer Date Recorded What is your housing situation today? 1 07/23/2024 Utilities Answer Date Recorded Do you have trouble paying f or utilities (for example, heat, electricity, water, phone)? 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 Not on file Not on file Obstetrics History Last Filed Vital Signs Vital Sign Reading Time Taken Comments Blood Pressure 125/56 07/23/2024 9:57 AM CDT Pulse 66 07/23/2024 9:57 AM CDT Temperature 36.6 C (97.8 F) 07/23/2024 9:57 AM CDT Respiratory Rate 18 01/23/2023 10:4 5 AM CDT Oxygen Saturation 98% 07/23/2024 9:57 AM CDT Inhaled Oxygen Concentration - - Weight 112.8 kg (248 lb 11.2 oz) 01/15/2024 1:08 PM CDT Height 170.2 cm (5' 7) 12/13/2023 1:52 PM CDT Body Mass Index 38.95 12/13/2023 1:52 PM CDT Plan of Treatment Upcoming Encounters Date Type Department Care Team (Late st Contact Info) Description 07/30/2024 3:20 PM CDT Office Visit [facility] [address] [place] [address] Jose Linares MD [address] [facility] [address] Health Maintenance Due Date Last Done Comments Hepatitis C screening for ag e 18-01/06/1968 Zoster (shingles) series for age 50+ (3 of 3) 02/11/2024 12/17/2023, 01/23/2012 COVID-19 vaccine series (2023- season) 2024 01/23/2024, 01/26/2023, 09/05/2022, Additional history exists BMI (ht and wt on same day) [...] history exists AAA screening age 65-74 Completed 10/27/19 23, 02/28/2022, 05/29/2016, Additional history exists RSV vaccine for adults or Completed 01/26/2023 Influenza Vaccine Completed 01/23/2024, , 01/13/2023, Additional history exists Medical Devices Implanted Type Area Broom Machine Operator Device Identifier Shelf Expiration Date Model / Serial / Lot Amplatz Ureteral Stent Set Implanted:Qty: 1 on 06/02/2013 at [facility] [id number] 4-[id number] / / Description:AMPLATZ URETERAL STENT SET Procedures Procedure Name Priority Date/Time Associated Diagnosis Comments MAGNESIUM Routine 07/23/2024 1:28 PM CDT Low magnesium level FERRITIN Routine 07/23/2024 1:28 PM CDT Anemia of unknown etiology CBC WITH AUTO DIFFERENTIAL Routine 07/23/2024 9:39 AM CDT Unspecified hypertension BASIC METABOLIC PANEL Routine 07/23/2024 9:39 AM CDT Unspecified hypertension HEMOGLOBIN A1C MONITORING (POCT) Routine 07/23/2024 9:38 AM CDT Diabetes mellitus type 2 ECHO TTE COMPLETE WO CONTRAST Routine 07/10/2024 3:00 PM CDT Elevated troponin I level Tachycardia LAB TRACKING EVENT Routine 07/10/2024 7: 00 AM CDT PERIPHERAL BLD MORPHOLOGY Routine 07/10/2024 7:00 AM CDT CBC WITH AUTO DIFFERENTIAL Routine 07/10/2024 7:00 AM CDT RETICULOCYTES Routine 07/10/2024 7:00 AM CDT CBC WITH AUTO DIFFERENTIAL Routine 07/10/2024 7:00 AM CDT SCAN-CT INTERPRETATION 12:00 AM CDT SCAN-RADIOLOGY REPORT 07/09/2024 12:00 AM CDT SCAN-CT INTERPRETATION 12:00 AM LANGUAGE ASST LIPID PANEL W REFLEX MEASURED LDL Routine 12/13/2023 1:45 PM CDT Hyperlipidemia CTA CHEST ABDOMEN PELVIS AORTIC DISSECTION W STAT 10/26/2022 5:45 PM CDT COLONOSCOPY DIAGNOSTIC Routine 6:56 AM LANGUAGE ASST Screening for colon cancer from Last 3 Months or Most Recently Relevant to Health Maintenance Results * (ABNORMAL) MAGNESIUM (07/23/2024 1:28 PM CDT) [facility] MAGNESIUM 1.1(L) 1.5 - 2.5 mg/dL [facility] Blood BLOOD SPECIMEN / Unknown 07/23/2024 1:28 PM CDT 07/23/2024 1:28 PM CDT Jose Linares MD CHEMISTRY Final Re sult Performing Organization Address [facility]/ZIP Co de Phone Number [employer] [place] [address] [place] [address], [employer] [facility] [address] [place] [address] * FERRITIN (07/23/2024 1:28 PM CDT) [facility] FERRITIN 25 24 - 380 ng/mL [facility] Blood BLOOD SPECIMEN / Unknown 07/23/2024 1:28 PM CDT 07/23/2024 1:28 PM CDT Jose Linares MD CHEMISTRY Final Re sult [employer]) [facility] [address] [place] [address], [place] [phone] [employer] [facility] [address] [place] [address] * (ABNORMAL) CBC AND DIFFERENTIAL (07/23/2024 9:39 AM CDT) [facility] WHITE BLOOD CELL COUNT 5.3 3.8 - 10.8 Thousand/u L [facility] RED BLOOD CELL COUNT 3.08(L) 4.20 - 5.80 Million/uL [facility] HEMOGLOBIN 9.1(L) 13.2 - 17.1 g/dL [facility] HEMATOCRIT 26.9(L) 38.5 - 50.0 % [facility] MCV 87.3 80.0 - 100.0 fL [facility] MCH 29.5 27.0 - 33.0 pg [facility] MCHC 33.8 32.0 - 36.0 g/dL [facility] Comment: For adults, a slight decrease in the calculated MCHC value (in the range of 30 to 32 g/dL) is most likely not clinically significant; however, it should be interpreted with caution in correlation with other red cell parameters and the patient's clinical condition. RDW 13.6 11.0 - 15.0 % [facility] PLATELET COUNT 233 140 - 400 Thousand/u L [facility] MPV 12.1 7.5 - 12.5 fL [facility] ABSOLUTE NEUTROPHILS 2,571 1,500 - 7,800 cells/uL [facility] ABSOLUTE LYMPHOCYTES 1,786 850 - 3,900 cells/uL [facility] ABSOLUTE MONOCYTES 413 200 - 950 cells/uL [facility] ABSOLUTE EOSINOPHILS 461 15 - 500 cells/uL [facility] ABSOLUTE BASOPHILS 69 0 - 200 cells/uL [facility] NEUTROPHILS 48.5 % [facility] LYMPHOCYTES 33.7 % [facility] MONOCYTES 7.8 % [facility] EOSINOPHILS 8.7 % [facility] BASOPHILS 1.3 % [facility] Blood BLOOD SPECIMEN / Unknown 07/23/2024 9:39 AM CDT 07/23/2024 9:40 AM CDT us Jose Linares MD HEMATOLOGY Final Re sult [employer] [facility] [address] [place] [address], [facility] [address] [place] [address] * (ABNORMAL) BASIC METABOLIC PANEL (07/23/2024 9:39 AM CDT) [facility] GLUCOSE 81 65 - 99 mg/dL [facility] Comment: Fasting reference interval UREA NITROGEN (BUN) 16 7 - 25 mg/dL [facility] CREATININE 0.58(L) 0.70 - 1.28 mg/dL [facility] EGFR 102 > OR = 60 mL/min/1.7 3m2 [facility] BUN/CREATININE RATIO 28(H) 6 - 22 (calc) [facility] SODIUM 119(LL) 135 - 146 mmol/L [facility] Comment: Verified by repeat analysis. POTASSIUM 4.1 3.5 - 5.3 mmol/L [facility] CHLORIDE 82(L) 98 - 110 mmol/L [facility] Comment: Verified by repeat analysis. CARBON DIOXIDE 24 20 - 32 mmol/L [facility] ELECTROLYTE BALANCE 13 7 - 17 mmol/L (calc) [facility] CALCIUM 9.4 8.6 - 10.3 mg/dL [facility] Blood BLOOD SPECIMEN / Unknown 07/23/2024 9:39 AM CDT 07/23/2024 9:40 AM CDT us Jose Linares MD CHEMISTRY Final Re sult [employer] [address] [place] [address], [place] [phone] [facility] [address] [place] [address] * HEMOGLOBIN A1C MONITORING (POCT) (07/23/2024 9:38 AM CDT) POC HEMOGLOBIN A1C 4.8 <6.0 % OF TOTAL HGB [facility] Comment: Any point of care results exhibiting inconsistency with the patient's clinical status should be repeated using a different testing method. Blood BLOOD SPECIMEN / Unknown 07/23/2024 9:38 AM CDT 07/23/2024 9:38 AM CDT Jose Linares MD CHEMISTRY Final Re sult [facility] [address] [place] [address], [facility] [address] [place] [address] * ECHO TTE COMPLETE WO CONTRAST (07/10/2024 3:00 PM CDT) AORTIC VALVE MEAN PG 32 mmHg EJECTION FRACTION 66 % LVEDD 5.1 cm Anatomical Region Laterality Modality Ultrasound 07/10/2024 1:51 PM CDT Narrative 07/10/2024 3:28 PM CDT ECHOCARDIOGRAM NICKY TRUJILLO : 1950 74 years Study Date: 07/10/2024 1:51:22 PM Gender: M BP: 116/62 mmHg Height: 170.00 cm BSA: 2.23 m Weight: 114.00 kg Tech: [facility] Referring MD: GELY NINA Site: [facility] [place] Location: MOBILE IP Patient Location: Inpatient. Procedure: 2D, Color Doppler and Spectral Doppler. Indication for study: elevated troponin, tachycardia Cardiac Rhythm: Normal sinus.Study quality: Fair. Final Impressions: 1. Normal left ventricular size, normal wall thickness, normal global systolic function, calculated EF of 66 %. 2. The aortic valve is trileaflet and calcified, moderate stenosis and moderate regurgitation. The aortic valve peak velocity is 3.6 m/s, the peak gradient is 51 mmHg, and the mean gradient is 32 mmHg. The aortic valve area is 1.37 cm with a dimensionless index of 0.42. The stroke volume index is 49.8 ml/m . 3. Moderately enlarged left atrium. 4. The mitral valve is sclerotic, no mitral regurgitation. Mean diastolic gradient 3.6 mm Hg at a HR of 74. 5. Severe MAC present. Chamber Sizes and Function Normal left ventricular size, normal wall thickness, normal global systolic function, calculated EF of 66 %. No resting regional wall motion abnormality visualized. Left atrial size is moderately enlarged. Right ventricular cavity size is normal, global systolic RV function is normal. RV wall thickness is normal. The right atrium is moderately enlarged. Right atrial volume index is 20 ml/m . Right atrial area is 16 cm . The pulmonary artery is of normal size and origin. The sinus of Valsalva is normal sized. The ascending aorta is normal sized. Valves, RV Pressures and Diastolic Function The aortic valve is trileaflet and calcified, moderate stenosis and moderate regurgitation. The mitral valve is sclerotic, no mitral regurgitation. Severe mitral annular calcification is present. Indeterminate pattern of LV diastolic filling. The tricuspid valve is normal in structure and regurgitation is not evident tricuspid regurgitation. Unable to assess right ventricular systolic pressure. The pulmonic valve is normal. No pulmonary regurgitation. Masses, Effusion, Shunts There is no pericardial effusion. There is a significant pericardial fat pad present. The inferior vena cava is not well visualized, respiratory size variation not well visualized. No left to right shunting was detected by limited color flow Doppler interrogation of the interatrial septum. MEASUREMENTS AND CALCULATIONS 2-D Measurements and LV Function: LVID (d) 5.1 cm Planimetered EF 66 % LVID (s) 2.8 cm LV FS% (2D) 44 % IVS (d) 1.1 cm LVOT diameter 2.0 cm LVPW (d) 1.2 cm HR 68 bpm Ao Sinus 3.6 cm LA Vol index 44 ml/m2 Ao Sinus ULN 4.2 cm * RA Vol index 20 ml/m2 Ao ST junct 2.9 cm RA area 16 cm Asc Ao 3.7 cm RV Basal Diam 4.0 cm Asc Ao ULN 4.3 cm * RV Mid Diam 3.6 cm LA 4.5 cm * Input BSA outside of range, reported values correspond to BSA = 2.1 Diastology: Mitral Tissue Doppler E Peak 0.9 m/s e', Septum 0.04 m/s A Peak 1.4 m/s e', Lateral 0.05 m/s E/A 0.7 E/e' Average 20.24 DT 685 msec Aortic Valve: Vmax 3.6 m/s INDIGO (V) 1.19 cm VTI 0.81 m INDIGO (I) 1.37 cm LVOT V max 1.3 m/s Max PG 51 mmHg LVOT VTI 0.34 m Mean PG 32 mmHg SV 111 ml Dim Index 0.42 SV index 50 ml/m CO 7.5 l/min CI 3.4 l/min/m Mitral Valve: MVA 1.1 cm MV P 1/2 199 msec MV Mean G 4 mmHg MV VTI 0.51 m Tricuspid Valve and estimated PA pressures: TAPSE 2.6 cm . This study was interpreted by an [facility] accredited facility. CC: HIM (med records) [facility], Med/Surg - IP [facility]. Final Procedure Note Greg Ford MD - 07/10/2024 ECHOCARDIOGRAM NICKY TRUJILLO : 1950 74 years Study Date: 07/10/2024 1:51:22 PM Gender: M BP: 116/62 mmHg Height: 170.00 cm BSA: 2.23 m Weight: 114.00 kg Tech: [facility] Referring MD: GELY NINA Site: [facility] [place] Location: MOBILE IP Patient Location: Inpatient. Procedure: 2D, Color Doppler and Spectral Doppler. Indication for study: elevated troponin, tachycardia Cardiac Rhythm: Normal sinus.Study quality: Fair. Final Impressions: 1. Normal left ventricular size, normal wall thickness, normal globalsystolic function, calculated EF of 66 %. 2. The aortic valve is trileaflet and calcified, moderate stenosis andmoderate regurgitation. The aortic valve peak velocity is 3.6 m/s, thepeak gradient is 51 mmHg, and the mean gradient is 32 mmHg. The aorticvalve area is 1.37 cm with a dimensionless index of 0.42. The strokevolume index is 49.8 ml/m . 3. Moderately enlarged left atrium. 4. The mitral valve is sclerotic, no mitral regurgitation. Mean diastolicgradient 3.6 mm Hg at a HR of 74. 5. Severe MAC present. Chamber Sizes and Function Normal left ventricular size, normal wall thickness, normal globalsystolic function, calculated EF of 66 %. No resting regional wall motionabnormality visualized. Left atrial size is moderately enlarged. Rightventricular cavity size is normal, global systolic RV function is normal.RV wall thickness is normal. The right atrium is moderately enlarged.Right atrial volume index is 20 ml/m . Right atrial area is 16 cm . Thepulmonary artery is of normal size and origin. The sinus of Valsalva isnormal sized. The ascending aorta is normal sized. Valves, RV Pressures and Diastolic Function The aortic valve is trileaflet and calcified, moderate stenosis andmoderate regurgitation. The mitral valve is sclerotic, no mitralregurgitation. Severe mitral annular calcification is present.Indeterminate pattern of LV diastolic filling. The tricuspid valve isnormal in structure and regurgitation is not evident tricuspidregurgitation. Unable to assess right ventricular systolic pressure. Thepulmonic valve is normal. No pulmonary regurgitation. Masses, Effusion, Shunts There is no pericardial effusion. There is a significant pericardial fatpad present. The inferior vena cava is not well visualized, respiratorysize variation not well visualized. No left to right shunting was detectedby limited color flow Doppler interrogation of the interatrial septum. MEASUREMENTS AND CALCULATIONS 2-D Measurements and LV Function: LVID (d) 5.1 cm Planimetered EF 66% LVID (s) 2.8 cm LV FS% (2D) 44% IVS (d) 1.1 cm LVOT diameter2.0 cm LVPW (d) 1.2 cm HR 68bpm Ao Sinus 3.6 cm LA Vol index 44ml/m2 Ao Sinus ULN 4.2 cm * RA Vol index 20ml/m2 Ao ST junct 2.9 cm RA area 16cm Asc Ao 3.7 cm RV Basal Diam4.0 cm Asc Ao ULN 4.3 cm * RV Mid Diam3.6 cm LA 4.5 cm * Input BSA outside of range, reported values correspond to BSA = 2.1 Diastology: Mitral Tissue Doppler E Peak 0.9 m/s e', Septum 0.04 m/s A Peak 1.4 m/s e', Lateral 0.05 m/s E/A 0.7 E/e' Average 20.24 DT 685 msec Aortic Valve: Vmax 3.6 m/s INDIGO (V) 1.19 cm VTI 0.81 m INDIGO (I) 1.37 cm LVOT V max 1.3 m/s Max PG 51 mmHg LVOT VTI 0.34 m Mean PG 32 mmHg SV 111 ml Dim Index 0.42 SV index 50 ml/m CO 7.5 l/min CI 3.4 l/min/m Mitral Valve: MVA 1.1 cm MV P 1/2 199 msec MV Mean G 4 mmHg MV VTI 0.51 m Tricuspid Valve and estimated PA pressures: TAPSE 2.6 cm . This study was interpreted by an [facility] accredited facility. CC: HIM (med records) [facility], Med/Surg - IP [facility]. Final us Gely Nina MD ECHO ORD Final Result * LAB TRACKING EVENT (07/10/2024 7:00 AM CDT) Other (Other) Client Collect / Unknown 07/10/2024 7:00 AM CDT 07/10/2024 2:44 PM CDT us Gely Nina MD LAB BILL ONLY Final Result [facility] [address] [place] [address], [place] * (ABNORMAL) CBC WITH AUTO DIFFERENTIAL (07/10/2024 7:00 AM CDT) WHITE BLOOD COUNT 4.7 4.5 - 11.0 thou/cu mm 07/10/2024 2:59 PM CDT [facility] RED BLOOD COUNT 2.95(L) 4.30 - 5.90 mil/cu mm 07/10/2024 2:59 PM CDT [facility] HEMOGLOBIN 8.5(L) 13.5 - 17.5 g/dL 07/10/2024 2:59 PM CDT [facility] HEMATOCRIT 25.1(L) 37.0 - 53.0 % 07/10/2024 2:59 PM CDT [facility] MCV 85 80 - 100 fL 07/10/2024 2:59 PM CDT [facility] MCH 28.8 26.0 - 34.0 pg 07/10/2024 2:59 PM CDT [facility] MCHC 33.9 32.0 - 36.0 g/dL 07/10/2024 2:59 PM CDT [facility] RDW 13.5 11.5 - 15.5 % 07/10/2024 2:59 PM CDT [facility] PLATELET COUNT 141 140 - 440 thou/cu mm 07/10/2024 2:59 PM CDT [facility] MPV 13.0(H) 6.5 - 11.0 fL 07/10/2024 2:59 PM CDT [facility] NRBC 0.0 % 07/10/2024 2:59 PM CDT [facility] ABS NRBC 0.0 thou /cu mm 07/10/2024 2:59 PM CDT [facility] % NEUT 45.7 % 07/10/2024 2:59 PM CDT [facility] % LYMPH 35.8 % 07/10/2024 2:59 PM CDT [facility] % MONO 10.0 % 07/10/2024 2:59 PM CDT [facility] % EOS 7.0 % 07/10/2024 2:59 PM CDT [facility] % BASO 1.3 % 07/10/2024 2:59 PM CDT [facility] % IMMATURE GRAN (METAS,MYELOS,VA OS) 0.2 % 07/10/2024 2:59 PM CDT [facility] ABSOLUTE NEUTROPHILS 2.1 1.7 - 7.0 thou/cu mm 07/10/2024 2:59 PM CDT [facility] ABSOLUTE LYMPHOCYTES 1.7 0.9 - 2.9 thou/cu mm 07/10/2024 2:59 PM CDT [facility] ABSOLUTE MONOCYTES 0.5 <0.9 thou/cu mm 07/10/2024 2:59 PM CDT [facility] ABSOLUTE EOSINOPHILS 0.3 <0.5 thou/cu mm 07/10/2024 2:59 PM CDT [facility] ABSOLUTE BASOPHILS 0.1 <0.3 thou/cu mm 07/10/2024 2:59 PM CDT [facility] LABORATORY ABSOLUTE IMMATURE GRANULOCYTES(MET ,MYELOS,PROS) 0.0 <0.3 thou/cu mm 07/10/2024 2:59 PM CDT [facility] Blood BLOOD SPECIMEN / Unknown Client Collect / Unknown 07/10/2024 7:00 AM CDT 07/10/2024 2:44 PM CDT us Gely Nina MD HEMATOLOGY Final Result [facility] [address] [place] [address], * PERIPHERAL BLD MORPHOLOGY (07/10/2024 7:00 AM CDT) Case Report Special Hematology Report Case: [id number] Authorizing Provider: Gely Nina MD Collected: 07/10/2024 0700 Ordering Location: [facility] CEN[facility] LAB Received: 07/10/2024 1600 Pathologist: Charles Sandoval MD Specimen: Peripheral Blood 07/11/2024 3:51 PM CDT [facility] ENTRAL LABORATORY Final Diagnosis PERIPHERAL BLOOD: 1. Moderate normocytic anemia with poikilocytosis 2. See comment 07/11/2024 3:51 PM CDT [facility] ENTRAL LABORATORY at 1551 CDT Comment The features of the anemia are nonspecific. The differential includes iron deficiency, anemia of chronic disease, anemia of chronic renal insufficiency, anatomic blood loss and medication effect. There is no morphologic evidence of hemolysis. This case was also reviewed by Marni Veras MT, MS ([facility]). 07/11/2024 3:51 PM CDT [facility] Clinical Information The the patient is a 74-year-old male. Per CBC scan: Chronic anemia Per EPIC: Additional history includes hypertension, postoperative hypotensive ASHD, chronic systolic CHF, diabetes, SP gastric bypass, and BPH. 07/11/2024 3:51 PM CDT [facility]-C [facility]MS LABORATORY CBC and Differential HEMATOLOGY PARAMETERS Tested at: [facility] RESULTS EXPECTED VALUES WBC: 4.7 4.5-36s0833/cumm RBC: 2.95 4.30-5.90 mil/cumm DECREASED HGB: 8.5 13.5-17.5 gm/di DECREASED HCT: 25.1 37-53% DECREASED MCV: 85.0 80-100 fl NORMOCYTIC MCH: 28.8 26-34 pg MCHC: 33.9 32-36 gm/dl NORMOCHROMIC RDW: 13.5 11.5-15.5% PLT: 141 140-768x7454/uL MPV: 13.0 6.5-11 fl ELEVATED Retic: 1.5 0.5-1.5% Differential Tested at: [facility] Absolute (%) Expected (%) (x10*9/L) (x10*9/L) Neutrophils: 2.11.7 (44.6) 1.7-7.0 (42-72%) Lymphocytes: 1.70.9 (36) 0.9-2.9 (20-44%) Monocytes: 0.5 (10.5) <0.9 (0-11%) Eosinophils: 0.3 (6.3) <0.5 (0-2%) Basophils: 0.1 (2.1) <0.3 (<3.0%) 07/11/2024 3:51 PM CDT [facility]-C ENTRAL LABORATORY Reticulocytes Retic: 1.5 0.5-1.5% 07/11/2024 3:51 PM CDT [facility]ORY Microscopic Description The final diagnosis is based on microscopic examination of an appropriately stained blood smear. 07/11/2024 3:51 PM CDT [facility] Additional Information Interpreted at [facility] - [address], [place] [address] 07/11/2024 3:51 PM CDT [facility] Blood (Peripheral Blood) 07/10/2024 7:00 AM CDT 07/10/2024 4:00 PM CDT Gely Nina MD HEMATOLOGY Final Result Performing Organization Address [facility] Co de Phone Number [facility] [address] [place], [place] [id number], [place] * RETICULOCYTES (07/10/2024 7:00 AM CDT) RETIC% 1.5 0.5 - 1.5 % 07/10/2024 2:59 PM CDT [facility] RETIC (ABSOLUTE) 0.04 0.03 - 0.08 mil/cu mm 07/10/2024 2:59 PM CDT [facility] Blood BLOOD SPECIMEN / Unknown Client Collect / Unknown 07/10/2024 7:00 AM CDT 07/10/2024 2:44 PM CDT Gely Nina MD HEMATOLOGY Final Result Performing Organization Address [facility] Co de Phone Number [facility] [address] [id number], [place] * SCAN-RADIOLOGY REPORT (07/09/2024 12:00 AM CDT) Anatomical Region Laterality Modality Other us Scanner OTHER Final Result * SCAN-CT INTERPRETATION (07/09/2024 12:00 AM CDT) Only the most recent of2 resultswithin the time period is included. Anatomical Region Laterality Modality Other us Scanner OTHER Final Result * LIPID PANEL W REFLEX MEASURED LDL (12/13/2023 1:45 PM CDT) CHOLESTEROL,TOTAL 134 100 - 199 mg/dL 12/13/2023 10:46 PM CDT [facility] Comment: Cholesterol, Total Reference Ranges Desirable <200 mg/dL Borderline 200-239 mg/dL High >=240 mg/dL TRIGLYCERIDES 96 <150 mg/dL 12/13/2023 10:46 PM CDT [facility] HDL CHOLESTEROL 54 >40 mg/dL 10:46 PM CDT [facility] NON-HDL CHOLESTEROL 80 <145 mg/dl 12/13/2023 10:46 PM CDT [facility] CHOL/HDL RATIO 2.48 <4.50 12/13/2023 10:46 PM CDT [facility] LDL CHOLESTEROL 61 <=130 mg/dL 12/13/2023 10:46 PM CDT [facility] VLDL CHOLESTEROL 19 <=30 mg/dL 12/13/2023 10:46 PM CDT [facility] PROVIDER ORDERED STATUS RANDOM 12/13/2023 10:46 PM CDT [facility] Blood BLOOD SPECIMEN / Unknown Venipuncture / Unknown 12/13/2023 1:45 PM CDT 12/13/2023 1:45 PM CDT us Jose Linares MD CHEMISTRY Final Re sult [facility] [address] [address], [place] * CTA CHEST ABDOMEN PELVIS AORTIC [...] CHEST ABDOMEN PELVIS AORTIC DISSECTION W LOCATION: [facility] MEDICAL IMAGING DATE: 10/26/2022 INDICATION: Anemia. GI bleed. COMPARISON: 01/10/2022 TECHNIQUE: CT angiogram chest abdomen pelvis during arterial phase of injection of IV contrast. 2D and 3D MIP reconstructions were performed by the surgical scrub technologist. Dose reduction techniques were used. CONTRAST: [...] CHEST ABDOMEN PELVIS AORTIC DISSECTION W LOCATION: [facility] MEDICAL IMAGING DATE: 10/26/2022 INDICATION: Anemia. GI bleed. COMPARISON: 01/10/2022 TECHNIQUE: CT angiogram chest abdomen pelvis during arterial phase ofinjection of IV contrast. 2D and 3D MIP reconstructions were performed bythe surgical scrub technologist. Dose reduction techniques were used. 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 [place] [address] [place] [address] PCP - General Family Practice 08/17/11 [facility], [address] [address] 07/23/24
--- OUTSIDE RECORDS SUMMARY | 2024-07-24 09:46 | XMS_ITS | Clinical Summary ---
Author Organization [facility] Address [address] [place] [address]. [place] [address] Care Team Providers Care Senior Ssis Developer Name Role Phone Milagros Jose Veloz Primary Care Provider [phone] Allergies Active Allergy Reactions Criticality Noted Date [...] on file Legal Sex Male 5:05 AM BPM ANALYST Gender Identity Not on file Sexual Orientation Not on file Last Filed Vital Signs Vital Sign Reading Time Taken Comments Blood Pressure 130/60 05/13/2022 3:23 PM BPM ANALYST Pulse 76 05/13/2022 3:23 PM BPM ANALYST Temperature 37.2 C (98.9 F) 05/13/2022 3:23 PM BPM ANALYST Respiratory Rate 18 05/13/2022 3:23 PM BPM ANALYST Oxygen Saturation 91% 05/13/2022 3:23 PM BPM ANALYST Inhaled Oxygen Concentration - - Weight 132.3 kg (291 lb 11.2 oz) 05/09/2022 5:50 AM BPM ANALYST scale Height 167.6 cm (5' 6) 05/09/2022 5:50 AM BPM ANALYST s tated Body Mass Index 47.08 05/09/2022 5:50 AM BPM ANALYST Plan of Treatment Health Maintenance Due Date [...] 2023 2, 01/16/2021, 01/28/2020, Additional history exists PHQ-2 (once per calendar year) 2024 DIABETES SCREENING 05/13/2025 05/13/2022, 0 05/13/2022, 05/13/2022, Additional history exists DTAP/TDAP/TD IMMUNIZATION (3 [...] GLUCOSE BY METER Routine 05/13/2022 7:57 AM BPM ANALYST from Last 3 Months or Most Recently Relevant to Health Maintenance Results * (ABNORMAL) Glucose by meter (05/13/2022 7:57 AM BPM ANALYST) GLUCOSE BY METER POCT 111(H) 70 - 99 mg/dL 05/13/2022 8:05 AM BPM ANALYST [facility] POCT RESULTS Blood, Capillary BLOOD SPECIMEN / Unknown 05/13/2022 7:57 AM BPM ANALYST 05/13/2022 8:05 AM BPM ANALYST us Lencho Walsh MD LAB - BEAKER POCT Final Re sult [facility] POCT RESULTS [address] [place] [address] from Last 3 Months or Most Recently Relevant to Health Maintenance Insurance MEDICARE [facility] MEDICARE ADVANTAGE Advance Directives For more information, please contact: [phone] * Full Code (Latest Code Status on [...] 9:17 PM 02/06/2016 1:05 PM Care Teams Senior Ssis Developer Relationship Specialty Start Date End Date Jose Linares: [phone] PCP - General Family Practice 02/02/16
--- OUTSIDE RECORDS SUMMARY | 2024-07-24 09:47 | XMS_ITS | Continuity of Care Document ---
Author Organization [facility] Address [address] [address] [place] [address] Phone Care Team Providers Care Felter Tennis Balls Name Role Phone Marita PETERSEN, Greg Unavailable [...] Diagnoses Date Provider Providers Copied on Encounter [facility], [address] [address], [place], [place], [id number], [place] tel:[phone] [facility] No Information 3 Marita Garza. [address] [place] [address], [facility] [address], [place], [id number], [place]. tel:[phone] Referring Provider: Greg Fuchs, [facility] [address], [place], [address] . tel:[phone] [facility] Minr Compl [facility] [place], [address] [address], [place], [place], [id number], [place] tel:[phone] [facility] No Information 3 Anoop Joseph. [address] [place] [address], [facility] [address], [place], [id number], [place]. tel:[phone] Referring Provider: Jake G[address]me[address], [address] [place] [address], [place], [address] . tel:[phone] [facility] Minr Compl [facility], [address] [address], [place], [place], [id number], [place] tel:[phone] [facility] No Information 3 Lyssa Aviles. [address] [place] [address], [facility] [address], [place], [id number], [place]. tel:[phone] Referring Provider: Stefan Catherine, [address] [place] [address], [place], [address] . tel:[phone] Init Hosp-da E&m Hi Severity [address] [facility], [address] [address], [place], [place], [id number], [place] tel:[phone] [facility] No Information 3 Lyssa Aviles. [address] [place] [address], [id number], [place]. tel:[phone] Referring Provider: Rayshawn Vega, [address], [place], [address]. tel:[phone] [facility], [address] [address], [place], [place], [id number], [place] tel:[phone] [facility] Duodenal adenoma 3 Marita Garza. [address] [place] [address], [place], [id number], [place]. tel:[phone] [facility], [address] [address], [place], [place], [id number], [place] tel:[phone] [facility] No Information 3 Marita Garza. [address] [place] [address], [id number], [place]. tel:[phone] Referring Provider: Rayshawn Vega, [address], [place], [address]. tel:[phone] [facility], [address] [address], [place], [place], [id number], [place] tel:[phone] [facility] No Information 3 Marita Garza. [address] [facility], [place], [place], [id number], [place]. tel:[phone] Offic/outpt E&m New Mod Sever [facility], [address] [address], [place], [place], [id number], [place] tel:[phone] [facility] GI Symptoms or Concerns (chief complaint) Duodenal adenoma 3 Marita Garza. [address] [facility], [place], [place], [id number], [place]. tel:[phone] Referring Provider: Rayshawn Vega, [address], [place], [address]. tel:[phone] [facility] [place], [address] [address], [place], [place], [id number], [place] tel:[phone] No Information No Information Referring Provider: Rayshawn Vega, [address], [place], [address]. tel:[phone] Family History Family Member Type Diagnosis Age [...] directional interface ; Source: Other Registry Novel [id number], all formulations administered Note: [facility] bi-direct ional [...] Registry Payers Payer name Insurance type Covered constitution party ID Authoriza tion(s) Blue Cross Medicare Advantage [id number] Social History Type Description Quantity Date [...] upper endoscopy and colonoscopy with an outside vice president supply chain. His upper endoscopy demonstrated 3 centimeter polyp [...]
--- OUTSIDE RECORDS SUMMARY | 2024-07-24 09:47 | XMS_ITS | Data Portability ---
Author Organization [facility], [facility] Address [address] [place] [address] Care Team Providers Care System Controller Name Role Phone PAVELTEJANE Salvador Primary Care Provider Assessment No assessment recorded. Plan of Treatment Reminders Order Date Submit Date Provider Last Modified By Organization Details Last Modified Time Details Appointments None recorded. Lab urinalysis, dipstick 2022 023 [facility], [address], [place] [address], [place], [address], 3 16:30:11 urinalysis, microscopic 2022 023 [facility], [address], [address], [place], [address], 4 05:01:40 urinalysis, dipstick 2022 023 [facility], [address], [address], [place], [address], 3 12:40:06 urinalysis, dipstick 2022 023 [facility], [address], [address], [place], [address], 3 11:00:44 culture, urine 2021 022 [facility], [address], [address], [place], [address], 3 12:21:53 urinalysis, dipstick 2021 022 [facility], [address], [address], [place], [address], 2 11:50:43 Referral None recorded. Procedures None recorded. Surgeries transurethr al resection of prostate (SURG) 2021 [email or web address] [place] [address], [address], [place], [address], 3 09:58:26 Imaging None recorded. Medication Orders None recorded. Patient TargetsNo targets recorded. Patient Instructions Encounter Date Encounter Id Patient Instructions Last Modified By Organization Details Last Modified Time 03/16/2022 [id number] BPH/weak stream: Discussed options including adding finasteride [...] were answered. Not available 03/16/2022 15:50:47 06/08/2022 [id number] BPH/weak stream: He's doing well. He is having some urgency and frequency which are slowly improving. His force of stream is much improved. I'll see him back in 3 months. Not available 06/08/2022 10:53:24 09/06/2022 [id number] BPH/weak stream: He's doing well with his [...] PSA prior. Not available 09/06/2022 12:34:06 03/14/2023 [id number] BPH/weak stream: He's voiding well since the [...] S+ color -advantus YELLOW yellow Not Available [facility] [address] [facility] [address], [place], [address], 04/28/2022 11:50:43 04/28/20 22 04/28/2022 UA DIP CS STATU S+ appearance -advantus CLEAR clear Not Available [facility] [address] [facility] [address], [place], [address], 04/28/2022 11:50:43 04/28/20 22 04/28/2022 UA DIP CS STATU S+ glucose -advantus NEGATI VE mg/dL negati ve Not Available [facility] [address] [facility] [address], [place], [address], 04/28/2022 11:50:43 04/28/20 22 04/28/2022 UA DIP CS STATU S+ bilirubin -advantus NEGATI VE negati ve Not Available [facility] [address] [facility] [address], [place], [address], 04/28/2022 11:50:43 04/28/20 22 04/28/2022 UA DIP CS STATU S+ ketones -advantus NEGATI VE mg/dL negati ve Not Available [facility] [address] [place] [address] [address], [place], [address], 04/28/2022 11:50:43 04/28/20 22 04/28/2022 UA DIP CS STATU S+ sp. gravity -advantus 1.020 1.010- 1.025 Not Available [facility] [address] [place] [address], [place], [address], 04/28/2022 11:50:43 04/28/20 22 04/28/2022 UA DIP CS STATU S+ pH -advantus 7.0 5.0-8. 0 Not Available [facility] [address] [place] [address], [place], [address], 04/28/2022 11:50:43 04/28/20 22 04/28/2022 UA DIP CS STATU S+ protein -advantus 100 MG/DL mg/dL negati ve abnormal Not Available [facility] [address] [place] [address] [address], [place], [address], 04/28/2022 11:50:43 04/28/20 22 04/28/2022 UA DIP CS STATU S+ urobilinogen -advantus 0.2 E.U./D L 0.2 E.U./d L Not Available [facility] [address] [facility] [address], [place], [address], 04/28/2022 11:50:43 04/28/20 22 04/28/2022 UA DIP CS STATU S+ nitrites -advantus NEGATI VE negati ve Not Available [facility] [address] [facility] [address], [place], [address], 04/28/2022 11:50:43 04/28/20 22 04/28/2022 UA DIP CS STATU S+ blood -advantus NEGATI VE negati ve Not Available [facility] [address] [place] [address] [address], [place], [address], 04/28/2022 11:50:43 04/28/20 22 04/28/2022 UA DIP CS STATU S+ leukocytes -advantus NEGATI VE negati ve Not Available [facility] [address] [place] [address] [address], [place], [address], 04/28/2022 11:50:43 04/28/20 22 04/28/2022 UA DIP CS STATU S+ performed by BRITTNEE Smith Not Available [facility] [address] [place] [address] [address], [place], [address], 04/28/2022 11:50:43 04/28/20 22 04/28/2022 UA DIP [...] for provi arash revie w. Not Available [facility] [address] [facility] [address], [place], [address], 04/28/2022 11:50:43 04/28/20 22 04/28/2022 URINE CULTU RE final report MICROB IOLOGY RESULT S abnormal SOURC E Void KNOWN ALLER GIES nkda TREAT MENT none MEDIA PLATE D AT: Media plate d on 04/28 @ 12:51 PM COLON Y COUNT 20,00 0-50, 000 cfu/m l RESUL T Enter ococc us miracle narum (Isol ate 1) Sensi tivit y Shanta sis Blackwell te 1 ----- ----- ----- ----- ----- ----- ----- - AMPIC ILLIN 8*S CIPRO FLOXA CADNY >2 R GENT. SYNER GY <=500 *S [...] s Desk [facility]. S= Susce ptibl [...] for provi arash revie w. Not Available [facility] [address] [place] [address] [address], [place], [address], 04/30/2022 12:21:53 06/08/19 23 06/08/2022 UA DIP CS STATU S color -advantus STRAW yellow Not Available [facility] [address] [place] [address] [address], [place], [address], 06/08/2022 11:00:44 06/08/19 23 06/08/2022 UA DIP CS STATU S appearance -advantus CLEAR clear Not Available [facility] [address] [facility] [address], [place], [address], 06/08/2022 11:00:44 06/08/19 23 06/08/2022 UA DIP CS STATU S glucose -advantus NEGATI VE mg/dL negati ve Not Available [facility] [address] [place] [address] [address], [place], [address], 06/08/2022 11:00:44 06/08/19 23 06/08/2022 UA DIP CS STATU S bilirubin -advantus NEGATI VE negati ve Not Available [facility] [address] [place] [address] [address], [place], [address], 06/08/2022 11:00:44 06/08/19 23 06/08/2022 UA DIP CS STATU S ketones -advantus NEGATI VE mg/dL negati ve Not Available [facility] [address] [place] [address] [address], [place], [address], 06/08/2022 11:00:44 06/08/19 23 06/08/2022 UA DIP CS STATU S sp. gravity -advantus >=1.03 0 1.010- 1.025 Not Available [facility] [address] [facility] [address], [place], [address], 06/08/2022 11:00:44 06/08/19 23 06/08/2022 UA DIP CS STATU S pH -advantus 6.0 5.0-8. 0 Not Available [facility] [address] [facility] [address], [place], [address], 06/08/2022 11:00:44 06/08/19 23 06/08/2022 UA DIP CS STATU S protein -advantus >=300 mg/dL negati ve abnormal Not Available [facility] [address] [place] [address], [place], [address], 06/08/2022 11:00:44 06/08/19 23 06/08/2022 UA DIP CS STATU S urobilinogen -advantus 0.2 0.2 E.U./d L Not Available [facility] [address] [place] [address] [address], [place], [address], 06/08/2022 11:00:44 06/08/19 23 06/08/2022 UA DIP CS STATU S nitrites -advantus NEGATI VE negati ve Not Available [facility] [address] [facility] [address], [place], [address], 06/08/2022 11:00:44 06/08/19 23 06/08/2022 UA DIP CS STATU S blood -advantus LARGE negati ve abnormal Not Available [facility] [address] [place] [address] [address], [place], [address], 06/08/2022 11:00:44 06/08/19 23 06/08/2022 UA DIP CS STATU S leukocytes -advantus SMALL negati ve abnormal Not Available [facility] [address] [facility] [address], [place], [address], 06/08/2022 11:00:44 06/08/19 23 06/08/2022 UA DIP CS STATU S performed by ARIN Penn Not Available [facility] [address] [facility] [address], [place], [address], 06/08/2022 11:00:44 06/08/19 23 06/08/2022 UA DIP [...] for provi arash revie w. Not Available [facility] [address] [facility] [address], [place], [address], 06/08/2022 11:00:44 06/08/19 23 06/08/2022 UA MICRO SCOPI C U-WBC 50 - 100 [hpf] 0 - 2 abnormal Not Available [facility] [address] [facility] [address], [place], [address], 06/08/2022 11:00:47 06/08/19 23 06/08/2022 UA MICRO SCOPI C U-RBC 50 - 100 [hpf] 0 - 2 abnormal Not Available [facility] [address] [facility] [address], [place], [address], 06/08/2022 11:00:47 06/08/19 23 06/08/2022 UA MICRO SCOPI C bacteria Modera te [hpf] negati ve abnormal Not Available [facility] [address] [facility] [address], [place], [address], 06/08/2022 11:00:47 06/08/19 23 06/08/2022 UA MICRO [...] for provi arash revie w. Not Available [facility] [address] [facility] [address], [place], [address], 06/08/2022 11:00:47 06/08/19 23 06/08/2022 URINE CULTU [...] for provi arash revie w. Not Available [facility] [address] [facility] [address], [place], [address], 06/10/2022 13:41:16 09/07/19 23 09/06/2022 UA WITHO UT MICRO - CS URISC AN blood - uriscan NEGATI VE negati ve Not Available [facility] [address] [place] [address] [address], [place], [address], 09/06/2022 12:40:06 09/07/19 23 09/06/2022 UA WITHO UT MICRO - CS URISC AN bilirubin - uriscan NEGATI VE mg/dL negati ve Not Available [facility] [address] [place] [address] [address], [place], [address], 09/06/2022 12:40:06 09/07/19 23 09/06/2022 UA WITHO UT MICRO - CS URISC AN urobilinogen - uriscan NORMAL mg/dL normal Not Available [facility] [address] [facility] [address], [place], [address], 09/06/2022 12:40:06 09/07/19 23 09/06/2022 UA WITHO UT MICRO - CS URISC AN ketones - uriscan NEGATI VE mg/dL negati ve Not Available [facility] [address] [place] [address] [address], [place], [address], 09/06/2022 12:40:06 09/07/19 23 09/06/2022 UA WITHO UT MICRO - CS URISC AN protein - uriscan 100 mg/dL negati ve abnormal Not Available [facility] [address] [place] [address] [address], [place], [address], 09/06/2022 12:40:06 09/07/19 23 09/06/2022 UA WITHO UT MICRO - CS URISC AN nitrites - uriscan NEGATI VE negati ve Not Available [facility] [address] [place] [address] [address], [place], [address], 09/06/2022 12:40:06 09/07/19 23 09/06/2022 UA WITHO UT MICRO - CS URISC AN glucose - uriscan NEGATI VE mg/dL negati ve Not Available [facility] [address] [place] [address] [address], [place], [address], 09/06/2022 12:40:06 09/07/19 23 09/06/2022 UA WITHO UT MICRO - CS URISC AN pH - uriscan 6.50 5.00-9 .00 Not Available [facility] [address] [place] [address] [address], [place], [address], 09/06/2022 12:40:06 09/07/19 23 09/06/2022 UA WITHO UT MICRO - CS URISC AN sp. gravity - uriscan 1.03 1.01-1 .03 Not Available [facility] [address] [place] [address] [address], [place], [address], 09/06/2022 12:40:06 09/07/19 23 09/06/2022 UA WITHO UT MICRO - CS URISC AN leukocytes - uriscan NEGATI VE negati ve Not Available [facility] [address] [place] [address] [address], [place], [address], 09/06/2022 12:40:06 09/07/19 23 09/06/2022 UA WITHO UT MICRO - CS URISC AN color - uriscan YELLOW lt. yellow ;yello w Not Available [facility] [address] [place] [address] [address], [place], [address], 09/06/2022 12:40:06 09/07/19 23 09/06/2022 UA WITHO UT MICRO - CS URISC AN clarity - uriscan CLEAR clear Not Available [facility] [address] [place] [address] [address], [place], [address], 09/06/2022 12:40:06 09/07/19 23 09/06/2022 UA WITHO [...] for provi arash revie w. Not Available [facility] [address] [facility] [address], [place], [address], 09/06/2022 12:40:06 03/14/20 23 03/14/2023 UA WITHO UT MICRO - CS URISC AN blood - uriscan NEGATI VE negati ve Not Available [facility] [address] [facility] [address], [place], [address], 03/14/2023 16:30:11 03/14/20 23 03/14/2023 UA WITHO UT MICRO - CS URISC AN bilirubin - uriscan NEGATI VE mg/dL negati ve Not Available [facility] [address] [place] [address] [address], [place], [address], 03/14/2023 16:30:11 03/14/20 23 03/14/2023 UA WITHO UT MICRO - CS URISC AN urobilinogen - uriscan NORMAL mg/dL normal Not Available [facility] [address] [place] [address] [address], [place], [address], 03/14/2023 16:30:11 03/14/20 23 03/14/2023 UA WITHO UT MICRO - CS URISC AN ketones - uriscan NEGATI VE mg/dL negati ve Not Available [facility] [address] [place] [address] [address], [place], [address], 03/14/2023 16:30:11 03/14/20 23 03/14/2023 UA WITHO UT MICRO - CS URISC AN protein - uriscan 10 mg/dL negati ve abnormal Not Available [facility] [address] [place] [address] [address], [place], [address], 03/14/2023 16:30:11 03/14/20 23 03/14/2023 UA WITHO UT MICRO - CS URISC AN nitrites - uriscan NEGATI VE negati ve Not Available [facility] [address] [place] [address] [address], [place], [address], 03/14/2023 16:30:11 03/14/20 23 03/14/2023 UA WITHO UT MICRO - CS URISC AN glucose - uriscan NEGATI VE mg/dL negati ve Not Available [facility] [address] [place] [address] [address], [place], [address], 03/14/2023 16:30:11 03/14/20 23 03/14/2023 UA WITHO UT MICRO - CS URISC AN pH - uriscan 7.50 5.00-9 .00 Not Available [facility] [address] [place] [address] [address], [place], [address], 03/14/2023 16:30:11 03/14/20 23 03/14/2023 UA WITHO UT MICRO - CS URISC AN sp. gravity - uriscan <=1.01 1.01-1 .03 Not Available [facility] [address] [place] [address] [address], [place], [address], 03/14/2023 16:30:11 03/14/20 23 03/14/2023 UA WITHO UT MICRO - CS URISC AN leukocytes - uriscan NEGATI VE negati ve Not Available [facility] [address] [place] [address] [address], [place], [address], 03/14/2023 16:30:11 03/14/20 23 03/14/2023 UA WITHO UT MICRO - CS URISC AN color - uriscan YELLOW lt. yellow ;yello w Not Available [facility] [address] [place] [address], [place], [address], 03/14/2023 16:30:11 03/14/20 23 03/14/2023 UA WITHO UT MICRO - CS URISC AN clarity - uriscan CLEAR clear Not Available [facility] [address] [place] [address] [address], [place], [address], 03/14/2023 16:30:11 03/14/20 23 03/14/2023 UA WITHO [...] for provi arash revie w. Not Available [facility] [address] [place] [address] [address], [place], [address], 03/14/2023 16:30:11 Result Notes None recorded. Problems Name Problem SNOMED Code Status Onset Date Resolution Date Notes Provider Name and Address Organization Details Recorded Time Lower urinary tract symptoms due to benign prostatic hypertrophy 8163728578796 1 Active 2021 Lencho Walsh MD [address] [place] [address],[place] [address] [place] [address], [phone], [facility] 15:39:41 Slowing of urinary stream 29904006 Active 2021 Lencho Walsh MD [address] [place] [address],[place] [address] [place] [address], [phone], [facility] 2 15:39:42 Problem Notes None recorded. Procedures Surgical History Date Name Laterality Status Provider Name and Address Organization Details Recorded Time 023 Bladder Scan completed Nettie Mattson [facility] 03/14/2023 16:08:50 023 Bladder Scan completed Steven Kaur [facility] 09/06/2022 12:20:05 023 Bladder Scan completed Reina Silva [facility] 06/08/2022 10:49:12 Urine Culture completed Yuko Aguilareve [facility] 04/28/2022 11:40:57 Urinalysis completed Yuko Diana [facility] 04/28/2022 11:40:55 Diagnostic sigmoidoscopy completed Not Available Health Note 06/04/2022 16:15:21 Cystoscopy- male completed Lencho Walsh MD [address] [facility], [place], [address], [facility] 03/16/2022 15:39:19 022 Bladder Scan completed Nora Ferraro [facility] 03/16/2022 15:22:50 Bladder Scan completed Latha Stratton [facility] 02/14/2022 14:24:[address]ography [...] DateTime 03/16/2022 172.72 cm Nora Ferraro [facility] 03/16/2022 15:13:18 Date Recorded Body height Body weight Body mass index (BMI) Provider Name and Address Organization Details Last Updated DateTime 06/08/2022 172.72 cm 913426.4162 41882 g 44.1 kg/m2 Not Available Health Note 06/08/2022 10:23:29 Date Recorded Body weight Body mass index (BMI) Body height Provider Name and Address Organization Details Last Updated DateTime 09/06/2022 202309.3561 59766 g 44.3 kg/m2 170.18 cm Not Available Health Note 09/06/2022 11:49:21 Date Recorded Body height Body mass index (BMI) Body weight Provider Name and Address Organization Details Last Updated DateTime 03/14/2023 170.18 cm 44.3 kg/m2 806644.64 g Nettie Mattson [facility] 03/14/2023 15:59:50 Social History Question [...] Has Tobacco Cessation Counseling Been Provided? No [email or web address] Information not available 06/08/2022 How Many Years Have You Smoked Tobacco? 32 [email or web address] Information not available 03/13/2023 Do You Or Have You Ever Used Any Other Forms Of Tobacco Or Nicotine? No [email or web address] Information not available 03/14/2023 How Many Days In The Past Year Have You Consumed 5 Or More Drinks? 0 [email or web address] Information no t available 03/13/2023 Sex: Unknown Functional Status None recorded. Mental Status None recorded. Family History Relationship Description Onset Age of this Age Resolved Age Notes LastModified by Organization Details LastModified Time Father Family history of cancer of colon [email or web address] Not available 02/14 14:01:42 Mother Family history of Hypertension [email or web address] Not available 14:01:52 Medical History Condition Response Sexually Transmitted Infection N Diabetes N Other N Bleeding Disorder N High Blood Pressure Y Kidney Stones N High Cholesterol N GERD/Acid Reflux N Heart Disease N Cancer N Depression N Lung Disease N Immunizations Vaccine Type Date Status Note Provider Nam e and Address Organization Details Recorded Time Influenza, high-dose, trivalent, PF 6 completed MARIELOS Linares [facility] 03/16/2022 15:13:26 Influenza, split virus, trivalent, preservative 9 completed Nora santoyo, [facility] 03/16/2022 15:13:26 pneumococcal polysaccharide PPV23 7 completed Nora santoyo, [facility] 03/16/2022 15:13:26 Influenza, high-dose, trivalent, PF 5 completed Nora santoyo, [facility] 03/16/2022 15:13:26 Influenza, adjuvanted, trivalent, PF 8 completed Nora santoyo, [facility] 03/16/2022 15:13:26 zoster live 2 completed Nora santoyo, [facility] 03/16/2022 15:13:26 Influenza, split virus, trivalent, preservative 1 completed Nora santoyo, [facility] 03/16/2022 15:13:26 COVID-19, mRNA, LNP-S, PF, 100 mcg/0.5mL dose or 50 mcg/0.25mL dose 2 completed Nora santoyo, [facility] 03/16/2022 15:13:26 Novel [id number], all formulations 9 completed Nora santoyo, [facility] 03/16/2022 15:13:26 Influenza, split virus, trivalent, preservative 3 completed Nora santoyo, [facility] 03/16/2022 15:13:26 Influenza, split virus, trivalent, preservative 8 completed Nora santoyo, [facility] 03/16/2022 15:13:26 Influenza, split virus, trivalent, preservative 7 completed Nora santoyo, [facility] 03/16/2022 15:13:26 Tdap 7 completed Nora santoyo, [facility] 03/16/2022 15:13:26 influenza, unspecified formulation 7 completed Nora santoyo, [facility] 03/16/2022 15:13:26 COVID-19, mRNA, LNP-S, PF, 100 mcg/0.5mL dose or 50 mcg/0.25mL dose 1 completed Nora santoyo, [facility] 03/16/2022 15:13:26 COVID-19, mRNA, LNP-S, bivalent, PF, 50 mcg/0.5 mL or 25mcg/0.25 mL dose 2 completed Nora santoyo, [facility] 03/16/2022 15:13:26 pneumococcal polysaccharide PPV23 8 completed Nora santoyo, [facility] 03/16/2022 15:13:26 COVID-19, mRNA, LNP-S, PF, 100 mcg/0.5mL dose or 50 mcg/0.25mL dose 1 completed Nora santoyo, [facility] 03/16/2022 15:13:26 Influenza, split virus, trivalent, preservative 2 completed Nora santoyo, [facility] 03/16/2022 15:13:26 Influenza, adjuvanted, quadrivalent, PF 2 completed Nora santoyo, [facility] 03/16/2022 15:13:26 Influenza, high-dose, quadrivalent, PF 1 completed Nora santoyo, [facility] 03/16/2022 15:13:26 Influenza, high-dose, trivalent, PF 8 [facility] 15:13:26 Influenza, adjuvanted, trivalent, PF 0 completed Nora santoyo, [facility] 03/16/2022 15:13:26 Td (adult), 2 Lf tetanus toxoid, preservative free, adsorbed 7 completed Nora santoyo, [facility] 03/16/2022 15:13:26 [facility]neumococcal conjugate [facility]V 13 [facility] 15:13:26 Influenza, adjuvanted, trivalent, PF 9 [facility] 15:13:27 COVID-19, mRNA, LNP-S, PF, 100 mcg/0.5mL dose or 50 mcg/0.25mL dose 1 [facility] 15:13:27 Influenza, high-dose, trivalent, PF 7 completed Nroa Ferraro null, [facility] 03/16/2022 15:13:27 Influenza, split virus, trivalent, preservative 0 completed Nora santoyo, [facility] 03/16/2022 15:13:27 Influenza, split virus, trivalent, preservative 6 [facility] 15:13:27 SARS-COV-2 (COVID-19) vaccine, UNSPECIFIED 2 completed Not Available [facility] 06/08/2022 10:23:54 influenza, unspecified formulation 2 completed Not Available [facility] 06/08/2022 10:23:54 pneumococcal, unspecified formulation 0 completed Not Available [facility] 06/08/2022 10:23:54 influenza, unspecified formulation 2 completed [...] SNOMED-CT Code Diagnosis ICD10 Code Diagnosis Note [id number] [facility] [employer] [address] 02/14/2022 13:32:03 02/14/2022 15:18:20 Lower urinary tract symptoms due to benign prostatic hypertrophy [id number] 9101 N40.1 Kidney stone [id number] N2 0.0 [id number] [facility] [address] [phone] 03/16/2022 15:08:18 03/16/2022 15:53:06 Lower urinary tract symptoms due to benign prostatic hypertrophy [id number] 9101 N40.1 Slowing of urinary stream [id number] R39.12 [id number] Yuko Ortiz [address] [address] 04/28/2022 11:23:48 04/28/2022 12:09:09 Lower urinary tract symptoms due to benign prostatic hypertrophy [id number] 9101 N40.1 [id number] MD Curt SommerAmado [address] [phone] 06/08/2022 10:20:51 06/08/2022 11:55:56 Lower urinary tract symptoms due to benign prostatic hypertrophy [id number] 9101 N40.1 Slowing of urinary stream 86933100 R39.12 [id number] MD Susanna Sommer [address] [place] [phone] 09/06/2022 11:48:25 09/06/2022 12:45:34 Lower urinary tract symptoms due to benign prostatic hypertrophy [id number] 9101 N40.1 Slowing of urinary stream 98820069 R39.12 [id number] MD Susanna Sommer [address] [place] [phone] 03/14/2023 15:56:05 03/14/2023 16:19:52 Lower urinary tract symptoms due to benign prostatic hypertrophy [id number] 9101 N40.1 Slowing of urinary stream [id number] R39.12 Health Concerns Section Related Observation LastModified by Organization Detai ls LastModified Time None Recorded Concern Status LastModified by Organization Details LastModified Time None Recorded Advance Directives Directive None Recorded Payers Encounter Date Sequence Insurance Name Policy Number Policy Zaragoza Covered Member ID Zaragoza Member ID Guarantor Name 03/16/2022 1 [place] [employer] [place] [place] [id number] Sulaiman Mendiola Aldahl [id number] Sulaiman Mendiola Aldahl 04/28/2022 1 [place] [employer] [place] [id number] Sulaiman Mendiola Aldahl [id number] Sulaiman Mendiola Aldahl 06/08/2022 1 [place] [employer] [place] [id number] Sulaiman Mendiola Aldahl [id number] Sulaiman Mendiola Aldahl 09/06/2022 1 [place] [employer] [place] [id number] Sulaiman Torresahl [id number] Sulaiman Mendiola Aldahl 03/14/2023 1 [place] [employer] [place] [id number] Sulaiman Torresahl [id number] Sulaiman Mendiola Aldahl Notes Date Note Type Note Provider Name and Address Organization Details Recorded Time 03/16/2022 text/html Per visit with RICO Kruger om on 02/14/22:Patient is a 72-year-old male that presents today for UTI, BPH, kidney stones. Patient had a hospitalization at [facility] from 01/10-01/12. Patient was thought to be [...] was last seen by Dr. Adam at [facility] in 2017, has not followed up [...] any blood thinners anymore. Lencho Walsh MD [address] [place] [address],[address], [place], [phone] 03/16/2022 15:52:09 06/08/2022 text/html Per visit with RICO Kruger om on 02/14/22:Patient is a 72-year-old male that presents today for UTI, BPH, kidney stones. Patient had a hospitalization at [facility] from 01/10-01/12. Patient was thought to be [...] was last seen by Dr. Adam at [facility] in 2016, has not followed up [...] but that's improving. Lencho Walsh MD [address] [facility],[address], [place], [address], [facility] 06/08/2022 10:54:16 09/06/2022 text/html Per visit with RICO Kruger om on 02/14/22:Patient is a 72-year-old male that presents today for UTI, BPH, kidney stones. Patient had a hospitalization at [facility] from 01/10-01/12. Patient was thought to be [...] was last seen by Dr. Adam at [facility] in 2016, has not followed up [...] takes a diuretic. Lencho Walsh MD [address] [facility],[address], [place], [address], [facility] 09/06/2022 12:34:28 03/14/2023 text/html Per visit with RICO Kruger om on 02/14/22:Patient is a 72-year-old male that presents today for UTI, BPH, kidney stones. Patient had a hospitalization at [facility] from 01/10-01/12. Patient was thought to be [...] was last seen by Dr. Adam at [facility] in 2016, has not followed up [...] takes his torsemide. Lencho Walsh MD [address] [facility],[address], [place], [address], [facility] 03/14/2023 16:16:48
--- NOTE | 2024-07-24 10:26 | ED.GENADULT ---
HPI - General Adult General Date Seen: 07/24/24 Chief complaint: Unspecified Complaint, Adult Stated complaint: Low NA Time Seen by Provider: 07/24/24 10:25 History of Present Illness HPI narrative: 74 yo M is referred to the ER today from the [facility] clinic for evaluation of low sodium and low magnesium. He was diagnosed with diverticulitis earlier this month on 07/05 here in the ER and started on oral antibiotics. I saw him here in the ER and for a follow-up visit about 15 days ago on 07/09 for worsening weakness, onset of atrial flutter, borderline hypotension. Repeat CT scan during that visit showed improving diverticulitis. He was admitted for hypotension and sepsis. He was also hypomagnesemic but it turns out he had not been taking his oral home magnesium supplements, hypokalemia as well. He was also anemic with a hemoglobin down to 8.4. Sodium had been low at 128 on 07/05, went down at 9:26 p.m. on 07/09 and remained stable on 07/11 and 07/12 [id number]. He was discharged on the . He has recently been ill with abdominal pain related to diverticulitis, he was seen here on the and then again on the and hospitalized for sepsis, hypotension, tachycardia in the setting of diverticulitis. He received IV antibiotics and that is now improved. He is not having any ongoing abdominal pain. He has a history of a duodenal adenoma and a history of GERD and gastritis per report and apparently had been seeing [facility] years ago. He did not go for his follow-up visit 2 years ago and has not had his follow-up surveillance endoscopies as had been recommended. He is chronically on a proton pump inhibitor. Of note CT scans obtained a couple weeks ago during his bout of diverticulitis showed gastritis with inflammation in the antrum of the stomach. He and his ex- report that even while he was sick with diverticulitis and since he has been better from that and out of the hospital he just can not eat solid food. He gets too much reflux and discomfort when he tries to eat. He has been drinking water, Sprite, apple juice, Jell-O. He has been able to keep down about 1 protein shake per day. Been feeling just generally weak. He and his added treated his weakness to not eating. He is not vomiting but does sometimes get nauseous. He is having liquidy stools but not black or bloody. No abdominal pain. No fever but sometimes he feels warm. Labs from [facility] drawn yesterday on 07/23 so show DM down to 119, potassium 4.1, chloride 82, bicarb 24, calcium 9.4, BUN 16, creatinine 0.58, glucose 81. magnesium low at 1.1. WBC was 5.3, hemoglobin trending up to 9.1. Platelet count 233. Related Data Home Medications ?Medication ?Instructions ?Recorded ?Confirmed atorvastatin 40 mg tablet 40 mg PO DAILY 01/10/22 07/24/24 citalopram 10 mg tablet 10 mg PO DAILY 01/10/22 07/24/24 metformin 1,000 mg tablet 1,000 mg PO BIDWM 01/10/22 07/24/24 cholecalciferol (vitamin D3) 25 1,000 unit PO DAILY 01/23/22 07/24/24 mcg (1,000 unit) tablet pantoprazole 40 mg tablet,delayed 40 mg PO DAILY 01/23/22 07/24/24 release lisinopril 10 mg tablet 20 mg PO DAILY 09/26/22 07/24/24 amlodipine 5 mg tablet 5 mg PO DAILY 02/08/24 07/24/24 spironolactone 25 mg tablet 25 mg PO DAILY 02/08/24 07/10/24 Previous Rx's ?Medication ?Instructions ?Recorded aspirin 81 mg chewable tablet 81 mg PO DAILY #30 tabs 09/27/22 (Children's Aspirin) torsemide 5 mg tablet 5 mg PO DAILY #30 tabs 09/27/22 magnesium oxide 400 mg (241.3 mg 400 mg PO BID #60 tabs 07/12/24 magnesium) tablet metoprolol succinate 25 mg 25 mg PO DAILY #30 tabs 07/12/24 tablet,extended release 24 hr potassium chloride 10 mEq 20 meq (2 x 10 mEq) PO DAILYWM #60 07/12/24 capsule,extended release caps Allergies Allergy/AdvReac Type Severity Reaction Status Date / Time No Known Drug Allergies Allergy Verified 07/24/24 10:16 [facility] Medical History (Updated 07/24/24 @ 11:44 by Jose Sena MD) Atrial flutter with rapid ventricular response ?I48.92 - Unspecified atrial flutter (ICD-10) Gastritis ?K29.70 - Gastritis, unspecified, without bleeding (ICD-10) Anemia ?D64.9 - Anemia, unspecified (ICD-10) Diverticulitis ?K57.92 - Diverticulitis of intestine, part unspecified, without perforation or abscess without bleeding (ICD-10) NSTEMI (non-ST elevated myocardial infarction) ?I21.4 - Non-ST elevation (NSTEMI) myocardial infarction (ICD-10) Polyp of duodenum ?K31.7 - Polyp of stomach and duodenum (ICD-10) Sinus tachycardia ?R00.0 - Tachycardia, unspecified (ICD-10) Heart failure with preserved ejection fraction ?I50.30 - Unspecified diastolic (congestive) heart failure (ICD-10) Hyponatremia ?E87.1 - Hypo-osmolality and hyponatremia (ICD-10) Obstructive sleep apnea ?G47.33 - Obstructive sleep apnea (adult) (pediatric) (ICD-10) Hypokalemia ?E87.6 - Hypokalemia (ICD-10) Noncompliance with medication regimen ?Z91.148 - Patient's other noncompliance with medication regimen for other reason (ICD-10) Type 2 PA (myocardial infarction) ?I21.A1 - Myocardial infarction type 2 (ICD-10) Sepsis associated hypotension ?A41.9 - Sepsis, unspecified organism (ICD-10) ?I95.9 - Hypotension, unspecified (ICD-10) Metabolic encephalopathy ?G93.41 - Metabolic encephalopathy (ICD-10) Acute right-sided weakness ?R53.1 - Weakness (ICD-10) Medical non-compliance ?Z91.199 - Patient's noncompliance with other medical treatment and regimen due to unspecified reason (ICD-10) Unintentional weight loss ?R63.4 - Abnormal weight loss (ICD-10) Atrial arrhythmia ?I49.8 - Other specified cardiac arrhythmias (ICD-10) Abnormal CT of brain ?R90.89 - Other abnormal findings on diagnostic imaging of central nervous system (ICD-10) Episode of gagging ?R19.8 - Other specified symptoms and signs involving the digestive system and abdomen (ICD-10) Seborrhea of face ?L21.9 - Seborrheic dermatitis, unspecified (ICD-10) Nausea ?R11.0 - Nausea (ICD-10) Microcytic anemia ?D50.9 - Iron deficiency anemia, unspecified (ICD-10) Steroid-induced hyperglycemia ?R73.9 - Hyperglycemia, unspecified (ICD-10) ?T38.0X5A - Adverse effect of glucocorticoids and synthetic analogues, initial encounter (ICD-10) Pituitary adenoma with extrasellar extension ?D35.2 - Benign neoplasm of pituitary gland (ICD-10) Benign non-nodular prostatic hyperplasia with lower urinary tract symptoms ?N40.1 - Benign prostatic hyperplasia with lower urinary tract symptoms (ICD-10) ASHD (arteriosclerotic heart disease) ?I25.10 - Atherosclerotic heart disease of [place] coronary artery without angina pectoris (ICD-10) Kidney stones ?N20.0 - Calculus of kidney (ICD-10) Aortic stenosis ?I35.0 - Nonrheumatic aortic (valve) stenosis (ICD-10) MRSA bacteremia ?R78.81 - Bacteremia (ICD-10) ?B95.62 - Methicillin resistant Staphylococcus aureus infection as the cause of diseases classified elsewhere (ICD-10) Postoperative hypotension ?I95.81 - Postprocedural hypotension (ICD-10) Morbid obesity ?E66.01 - Morbid (severe) obesity due to excess calories (ICD-10) Hyperlipidemia ?E78.5 - Hyperlipidemia, unspecified (ICD-10) Abnormal colonoscopy ?R93.3 - Abnormal findings on diagnostic imaging of other parts of digestive tract (ICD-10) Hx of colonic polyps ?Z86.010 - Personal history of colonic polyps (ICD-10) Sleep apnea ?G47.30 - Sleep apnea, unspecified (ICD-10) Malignant melanoma of right upper extremity ?C43.61 - Malignant melanoma of right upper limb, including shoulder (ICD-10) Hypertension ?I10 - Essential (primary) hypertension (ICD-10) Diabetes mellitus type 2 in obese ?E11.69 - Type 2 diabetes mellitus with other specified complication (ICD-10) ?E66.9 - Obesity, unspecified (ICD-10) Surgical History History of transurethral resection of prostate ?Z98.890 - Other specified postprocedural states (ICD-10) ?Z90.79 - Acquired absence of other genital organ(s) (ICD-10) 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) H/O vasectomy ?Z98.52 - Vasectomy status (ICD-10) S/P skin biopsy ?Z98.890 - Other specified postprocedural states (ICD-10) H/O nephrostomy H/O lithotripsy ?Z98.890 - Other specified postprocedural states (ICD-10) S/P laparoscopic sleeve gastrectomy ?Z98.84 - Bariatric surgery status (ICD-10) History of total right hip arthroplasty ?Z96.641 - Presence of right artificial hip joint (ICD-10) H/O umbilical hernia repair ?Z98.890 - Other specified postprocedural states (ICD-10) ?Z87.19 - Personal history of other diseases of the digestive system (ICD-10) H/O hemorrhoidectomy ?Z98.890 - Other specified postprocedural states (ICD-10) Hx of colonoscopy ?Z98.890 - Other specified postprocedural states (ICD-10) H/O right hemicolectomy ?Z90.49 - Acquired absence of other specified parts of digestive tract (ICD-10) Hx of appendectomy ?Z90.49 - Acquired absence of other specified parts of digestive tract (ICD-10) Family History Father Colon cancer Obesity Sister Diabetes Obesity Mother Heart disease High blood pressure Hyperlipidemia Obesity Stroke Social History Narrative: [place] Requests that we talk with his ex- about current health issues. Son is also actively involved in assisting his care. Wishes to be full code. He does not smoke. What is your current living situation?: I presently have a place to live Problems where you live: no known problems Problems where you live details: n/a In the past 12 months, utilities in danger of being shut off: no In past 12 months, lack of transportation kept you from medical appts, meetings, work, or getting things needed for daily living: no In the past 12 mos, have been you worried that your food would run out before you had money to buy more?: never true In the past 12 mos, the food you bought just didn't last and you didn't have money to buy more?: never true Highest level of school completed/degree received: Associate degree: occupational, technical, vocational program Smoking Status: Former smoker What tobacco products do you use: cigarettes Years smoked: 30 Smoking quit date/years: >15 years ago Do you use any of these nicotine containing products: None Second hand tobacco smoke exposure: No How often do you have a drink containing alcohol: monthly or less Alcohol type: beer How many standard drinks containing alcohol do you have on a typical day: 1 or 2 How often do you have six or more drinks on one occasion: Less than monthly AUDIT-C Alcohol total score: 2 Non-prescribed substance use: denies use Caffeine: Yes (3-4 daily) How often does anyone, including family, friends and others, physically hurt you: never How often does anyone, including family, friends and others, insult or talk down to you: never How often does anyone, including family, friends and others, threaten you with harm: never How often does anyone, including family, friends and others, scream or curse at you: never Do you think of yourself as: straight/heterosexual Gender Identity: male service: No Exam Narrative: Exam Narrative: Constitutional: Appears well-developed and well-nourished. Alert. Conversant. Non toxic. He does look pale and is somewhat weak but he is able to sit up with assistance. HENT: Head: Atraumatic. Nose: Nose normal. Mouth/Throat: Oral mucosa is clear and moist. no trismus. Pharynx normal. Tonsils symmetric. No tonsillar enlargement, erythema, or exudate. Eyes: Conjunctivae pale. EOM normal. Pupils equal, round, and reactive to light. No scleral icterus. Neck: Normal range of motion. Neck supple. No tracheal deviation present. Cardiovascular: Normal rate, regular rhythm. No gallop. No friction rub. No murmur heard. Symmetric radial artery pulses Pulmonary/Chest: Effort normal. No stridor. No respiratory distress. No wheezes. No rales. No rhonchi . No tenderness. Abdominal: Soft. Bowel sounds normal. No distension. No mass. No tenderness. No rebound. No guarding. No CVA tenderness. Musculoskeletal: RUE: Normal range of motion. No tenderness. No deformity LUE: Normal range of motion. No tenderness. No deformity RLE: Normal range of motion. No edema. No tenderness. No deformity LLE: Normal range of motion. No edema. No tenderness. No deformity Neurological: Alert and oriented to person, place, and time. Normal strength. CN II-VII intact. No sensory deficit. GCS eye subscore is 4. GCS verbal subscore is 5. GCS motor subscore is 6. Normal coordination Skin: Skin is warm and dry. No rash noted. No pallor. Normal capillary refill. Psychiatric: Normal mood. Normal affect. Const: Vital Signs, click to edit/add: Vital Signs - 24 hr 07/24/24 10:16 07/24/24 11:02 07/24/24 11:15 Temperature 97.4 F L Pulse Rate 65 51 L Pulse Rate [Pulse Oximeter] 65 Respiratory Rate 18 8 L 9 L Blood Pressure [Ri ght Upper Arm] 137/73 Pulse Oximetry 94 98 95 Oxygen Delivery Me thod Room Air 07/24/24 11:30 07/24/24 11:45 07/24/24 12:00 Temperature Pulse Rate 59 L 62 57 L Pulse Rate [Pulse Oximeter] Respiratory Rate 14 8 L 9 L Blood Pressure [Ri ght Upper Arm] Pulse Oximetry 97 97 97 Oxygen Delivery Me thod 07/24/24 12:15 Temperature Pulse Rate 59 L Pulse Rate [Pulse Oximeter] Respiratory Rate 8 L Blood Pressure [Ri ght Upper Arm] Pulse Oximetry 96 Oxygen Delivery Me thod Course Vital Signs Vital signs: Initial Vital Signs Temperature 97.4 F L 07/24/24 10:16 Temperature Source Temporal Artery Scan 07/24/24 10:16 Pulse Rate 65 07/24/24 10:16 Respiratory Rate 18 07/24/24 10:16 Blood Pressure 137/73 07/24/24 10:16 Blood Pressure Mean 94 07/24/24 10:16 Pulse Oximetry 94 07/24/24 10:16 Oxygen Delivery Method Room Air 07/24/24 10:16 Vital Signs Temperature 97.4 F L 07/24/24 10:16 Pulse Rate 65 07/24/24 10:16 Respiratory Rate 18 07/24/24 10:16 Blood Pressure 137/73 07/24/24 10:16 Pulse Oximetry 94 07/24/24 10:16 Oxygen Delivery Method Room Air 07/24/24 10:16 Temperature 97.4 F L 07/24/24 10:16 Pulse Rate 59 L 07/24/24 12:15 Respiratory Rate 8 L 07/24/24 12:15 Blood Pressure 137/73 07/24/24 10:16 Pulse Oximetry 96 07/24/24 12:15 Oxygen Delivery Method Room Air 07/24/24 10:16 Medications Administered Medications: Discontinued Medications Generic Name Dose Route Start Last Admin Trade Name Scarlett PRN Reason Stop Dose Admin Pantoprazole Sodium 80 mg 07/24/24 11:44 07/24/24 12:10 Pantoprazole Sodium 40 Mg Inj IVP 07/24/24 11:45 80 mg ONCE ONE Administration Medical Decision Making MDM Narrative Medical decision making narrative: Very pleasant 74-year-old gentleman presenting to the ER today with his ex-. They was sent into the ER today based on hyponatremia found on his labs from the [place] [facility] drawn yesterday. Labs confirm hyponatremia with sodium down to 116 today. He has generalized nonfocal weakness but is not really confused. No evidence for decreased level of consciousness or seizure activity. At this point no indication for hypertonic saline. Suspect that his hyponatremia is probably caused by combination of his loop diuretic as well as the fact that he has not been eating any solid food for the past couple of weeks. He has only been drinking water and other liquids without much sodium. He is not an alcoholic. Initial step will be fluid restriction. IV is saline locked here in the ER but will hold off on IV fluid boluses. He will need further workup including urine sodium and other workup per hospitalist. Second concern is the fact that he has had bad ?reflux? whenever he tries to eat solid food for the past 2 weeks. He had radiographically apparent gastritis on his CT when he was in the hospital with diverticulitis. Will likely need inpatient endoscopy and/or close GI follow-up. Apparently has a history of duodenal adenoma and was supposed to have had follow-up endoscopy through [facility] a couple of years ago (but never went to his checkups). Will start on IV PPI here in the ER today. He also has anemia with a hemoglobin of 8.5 which is similar to when he was in the hospital couple weeks ago. Denies any black or bloody stools but suspect some probably chronic slow GI losses. At this point no indication for immediate transfusion. Magnesium is also low. Supplemented with IV Mag sulfate here in the ER. Discussed with hospitalist who graciously accepts this patient to the hospitalist service. Please see the hospitalist's notes for further details about the patient's hospitalization status. Lab Data Labs: Lab Results 07/24/24 Range/Units 10:45 WBC 4.60 (4.50-11.00) K/uL RBC 2.92 L (4.30-5.90) m/uL Hgb 8.5 L (13.5-17.5) gm/dL Hct 24.3 L (37.0-53.0) % MCV 83 (80-100) fL MCH 29 (26-34) pg MCHC 35 (32-36) gm/dL RDW Coeff of Daniel 13.1 (11.5-15.5) % Plt Count 195 (140-440) K/uL Neut % (Auto) 45.6 (42.0-72.0) % Lymph % (Auto) 33.7 (20-44) % Gulf % (Auto) 8.5 (0.0-11.0) % Eos % (Auto) 11.3 H (0.0-7.0) % Baso % (Auto) 0.9 (0.0-3.0) % Neut # (Auto) 2.10 (1.7-7.0) K/uL Lymph # (Auto) 1.55 (0.90-2.90) K/uL Gulf # (Auto) 0.40 (0.00-0.90) K/UL Eos # (Auto) 0.50 (0.00-0.50) K/uL Baso # (Auto) 0.04 (0.00-0.30) K/uL Abs Immat Gran (auto) 0.00 (0.00-0.30) K/uL Imm/Tot Granulo (auto) 0.0 % Sodium 116 L* (135-149) mmol/L Potassium 3.7 (3.6-5.1) mmol/L Chloride 83 L (96-114) mmol/L Carbon Dioxide 24 (20-32) mmol/L Anion Gap 9 (7-15) mEq/L BUN 16 (7-30) mg/dL Creatinine 0.6 (0.5-1.5) mg/dL Estimated Creat Clear 60.59 Estimated GFR 101 ml/min Glucose 82 (60-115) mg/dL Calcium 9.1 (8.4-10.6) mg/dL Magnesium 1.0 L (1.5-2.6) mg/dL Total Bilirubin 0.5 (0.1-1.5) mg/dL AST 64 H (12-35) U/L ALT 36 (4-50) U/L Alkaline Phosphatase 67 (40-150) U/L Total Protein 6.1 (6.0-8.3) g/dL Albumin 3.7 (3.3-5.0) g/dL Ethyl Alcohol < 0.01 (0.01-0.03) % Discharge Plan Discharge Clinical Impression: Hyponatremia, Gastritis Patient Disposition: Admitted As Inpatient
[2024-07-24 10:51] LABS: Basophils Absolute Auto 0.04 K/uL (0.00-0.30); Basophils Percent Auto 0.9 % (0.0-3.0); Eosinophils Percent Auto 11.3 % (0.0-7.0); Hematocrit* 24.3 % (37.0-53.0); Hemoglobin* 8.5 gm/dL (13.5-17.5); Lymphocytes Absolute Auto 1.55 K/uL (0.90-2.90); Lymphocytes Percent Auto 33.7 % (20-44); Mean Corpuscular HGB Conc 35 gm/dL (32-36); Mean Corpuscular Hemoglobin 29 pg (26-34); Mean Corpuscular Volume 83 fL (80-100); Monocytes Percent Auto 8.5 % (0.0-11.0); Neutrophils Percent Auto 45.6 % (42.0-72.0); Platelet Count* 195 K/uL (140-440); RDW Coefficient of Variation % 13.1 % (11.5-15.5); Red Blood Count* 2.92 m/uL (4.30-5.90)
[2024-07-24 10:57] LABS: Slide Review Reflex No
[2024-07-24 11:05] LABS: Albumin* 3.7 g/dL (3.3-5.0); Chloride* 83 mmol/L (96-114)
[2024-07-24 11:06] LABS: Potassium* 3.7 mmol/L (3.6-5.1)
[2024-07-24 11:08] LABS: Alanine Aminotransferase* 36 U/L (4-50); Alkaline Phosphatase* 67 U/L (40-150); Aspartate Amino Transferase* 64 U/L (12-35); Bilirubin Total* 0.5 mg/dL (0.1-1.5); Blood Urea Nitrogen* 16 mg/dL (7-30); Calcium* 9.1 mg/dL (8.4-10.6); Carbon Dioxide* 24 mmol/L (20-32); Creatinine* 0.6 mg/dL (0.5-1.5); Est. Creatinine Clearance* 60.59; Estimated Glomerular Filt Rate 101 ml/min; Glucose* 82 mg/dL (60-115); Sodium* 116 mmol/L (135-149); Total Protein* 6.1 g/dL (6.0-8.3)
[2024-07-24 11:09] LABS: Anion Gap 9 mEq/L (7-15); Ethanol* < 0.01 % (0.01-0.03)
--- NOTE | 2024-07-24 11:15 | ED.NURSE ---
Pt with critical sodium level of 116. MD Sena aware.
--- OUTSIDE RECORDS SUMMARY | 2024-07-24 11:49 | XMS_ITS | Clinical Summary ---
Author Organization [facility] Address [address] [place] [address] Care Team Providers Care Industrial Engineering Director Name Role Phone Jose Linares MD Primary Care Provider + Always [facility] Unavailable [phone] Allergies Active Allergy Reactions Criticality Noted Date [...] Type Department Care Team Description 07/24/2024 Telephone [facility] [address] [place] [address] [phone] Jose Linares MD returning call (Erin is the patient's ex and who the patient stay with. Erin is returning a call from this morning to the patient.) 07/24/2024 Telephone [facility] [address] [place] [address] Jose Sousa MD Abnormal Lab Results 07/23/2024 9:35 AM CDT Office Visit [facility] [address] [place] [address] Jose Linares MD ER Follow up ([place], abdominal pain, 07/05/24 and 07/10/24, hospital) 07/22/2024 Travel 07/10/2024 2:00 PM CDT Ancillary Procedure [facility] [address] [place] [address] 07/10/2024 Lab Requisition [facility] [phone] Gely Nina MD 07/09/2024 Orders Only [facility] Scanner 1 scan: (1-Ord) [place] ABD PELVIS W/ CON, 07/09/2024 07/09/2024 Orders Only [facility] Scanner 1 scan: (1-Ord) [facility], CHEST 2VIEWS, 07/09/2024 07/05/2024 Orders Only [facility] Scanner 1 scan: (1-Ord) [facility], CT ABDOMEN PELVIS W CON, 07/05/2024 06/26/2024 Refill [facility] [address] [place] [address] Jose Linares MD Refill Request (Citalopram) from Last 3 Months Immunizations Immunization Administration Dates Next Due AMB Influenza, IIV3 (Age >=3 years)(Flu Clinic Only) 02/26/2013 COVID-19 vaccine (Moderna 100mcg/0.5mL) NIDIA RUIZ 10/28/2021,08/26/2021,02/20/2021,07/27,06/29/2020 COVID-19 vaccine (Pfizer-Bio NTech 30mcg/0.3mL) 12YO+ BIVALENT PF, MDV 09/05/2022 COVID-19 vaccine (Zvents NTech 30mcg/0.3mL) PF, MDV 08/05/2022,10/28/2021 Influenza A [...] on file Legal Sex Male 5:26 AM 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 Gender Identity Not on file Sexual Orientation Not on file Occupation Industry Job Start Date Job End Date Not on file Not on file Not on file 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 file Not on file Not [...] Description 07/30/2024 3:20 PM CDT Office Visit [facility] [address] [place] [address] Jose Linares MD [address] [facility] [address] Health Maintenance Due Date Last Done Comments [...] history exists Medical Devices Implanted Type Area Senior Teller Device Identifier Shelf Expiration Date Model / Serial / Lot Amplatz Ureteral Stent Set Implanted:Qty: 1 on 06/02/2013 at [facility] UTSSW-10.2-2 4-AMP-RH / / Description:AMPLATZ URETERAL [...] 12:00 AM CDT SCAN-CT INTERPRETATION 12:00 AM 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 RETOUCHER LIPID PANEL W REFLEX MEASURED LDL Routine 12/13/2023 1:45 PM CDT Hyperlipidemia CTA CHEST ABDOMEN PELVIS AORTIC DISSECTION W STAT 10/26/2022 5:45 PM CDT COLONOSCOPY DIAGNOSTIC Routine 6:56 AM 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 RETOUCHER Screening for colon cancer from Last 3 Months or Most Recently Relevant to Health Maintenance Results * (ABNORMAL) MAGNESIUM (07/23/2024 1:28 PM CDT) [facility] MAGNESIUM 1.1(L) 1.5 - 2.5 mg/dL [facility] Blood BLOOD SPECIMEN / Unknown 07/23/2024 1:28 PM CDT 07/23/2024 1:28 PM CDT Jose Linares MD CHEMISTRY Final Re sult Performing Organization Address [facility]/ZIP Co de Phone Number [employer] [address] [address] [place] [address], [facility] [address] [place] [address] * FERRITIN (07/23/2024 1:28 PM CDT) [facility] FERRITIN 25 24 - 380 ng/mL [facility] Blood BLOOD SPECIMEN / Unknown 07/23/2024 1:28 PM CDT 07/23/2024 1:28 PM CDT Jose Linares MD CHEMISTRY Final Re sult [employer] [facility] [address] [place] [address], [place] [phone] [facility] [address] [place] [address] * (ABNORMAL) CBC AND DIFFERENTIAL (07/23/2024 9:39 AM CDT) [facility] WHITE BLOOD CELL COUNT 5.3 3.8 [...] Linares MD HEMATOLOGY Final Re sult [email or web address] [address] [place] [address], [facility] [address] [place] [address] * (ABNORMAL) BASIC METABOLIC PANEL (07/23/2024 9:39 AM CDT) [facility] GLUCOSE 81 65 - 99 mg/dL [facility] Comment: Fasting reference interval UREA NITROGEN (BUN) 16 7 - 25 mg/dL [facility] CREATININE 0.58(L) 0.70 - 1.28 mg/dL [facility] EGFR 102 > OR = 60 mL/min/1.7 3m2 [facility] BUN/CREATININE RATIO 28(H) 6 - 22 (calc) [facility] SODIUM 119(LL) 135 - 146 mmol/L [facility] [facility] Comment: Verified by repeat analysis. POTASSIUM 4.1 3.5 - 5.3 mmol/L [facility] CHLORIDE 82(L) 98 - 110 mmol/L [facility] Comment: Verified by repeat analysis. CARBON DIOXIDE 24 20 - 32 mmol/L [facility] ELECTROLYTE BALANCE 13 7 - 17 mmol/L (calc) [facility] CALCIUM 9.4 8.6 - 10.3 mg/dL [facility] Blood BLOOD SPECIMEN / Unknown 07/23/2024 9:39 AM CDT 07/23/2024 9:40 AM CDT us Jose Linares MD CHEMISTRY Final Re sult [employer] [facility] [address] [place] [address], [place] [phone] [facility] [address] [place] [address] * HEMOGLOBIN A1C MONITORING (POCT) (07/23/2024 9:38 AM CDT) POC HEMOGLOBIN A1C 4.8 <6.0 % OF TOTAL HGB [facility] Comment: Any point of care results exhibiting inconsistency with the patient's clinical status should be repeated using a different testing method. Blood BLOOD SPECIMEN / Unknown 07/23/2024 9:38 AM CDT 07/23/2024 9:38 AM CDT Jose Linares MD CHEMISTRY Final Re sult [facility] [address] [place] [address], [facility] [address] [place] [address] * ECHO TTE COMPLETE WO CONTRAST (07/10/2024 [...] BSA: 2.23 m Weight: 114.00 kg Tech: [facility] Referring MD: GELY NINA Site: [facility] Reading Location: MOBILE IP Patient [...] . This study was interpreted by an [facility] accredited facility. CC: HIM (med records) [facility], Med/Surg - IP [facility]. Final Procedure Note Greg Ford MD - 07/10/2024 ECHOCARDIOGRAM NICKY TRUJILLO : 1950 74 years Study Date: 07/10/2024 1:51:22 PM Gender: M BP: 116/62 mmHg Height: 170.00 cm BSA: 2.23 m Weight: 114.00 kg Tech: [facility] Referring MD: GELY NINA Site: [facility] Reading Location: MOBILE IP Patient [...] [facility] accredited facility. CC: HIM (med records) [facility], Med/Surg - IP [facility]. Final us Gely Nina MD ECHO ORD Final Result * LAB TRACKING EVENT (07/10/2024 7:00 AM CDT) Other (Other) Client Collect / Unknown 07/10/2024 7:00 AM CDT 07/10/2024 2:44 PM CDT us Gely Nina MD LAB BILL ONLY Final Result [facility] [address] [place] [address], [place] * (ABNORMAL) CBC WITH AUTO DIFFERENTIAL (07/10/2024 7:00 AM CDT) WHITE BLOOD COUNT 4.7 4.5 - 11.0 thou/cu mm 07/10/2024 2:59 PM CDT [facility] RED BLOOD COUNT 2.95(L) 4.30 - 5.90 mil/cu mm 07/10/2024 2:59 PM CDT [facility] HEMOGLOBIN 8.5(L) 13.5 - 17.5 g/dL 07/10/2024 2:59 PM CDT [facility] HEMATOCRIT 25.1(L) 37.0 - 53.0 % 07/10/2024 2:59 PM CDT [facility] MCV 85 80 - 100 fL 07/10/2024 2:59 PM CDT [facility] MCH 28.8 26.0 - 34.0 pg 07/10/2024 2:59 PM CDT [facility] MCHC 33.9 32.0 - 36.0 g/dL 07/10/2024 2:59 PM CDT [facility] RDW 13.5 11.5 - 15.5 % 07/10/2024 2:59 PM CDT [facility] PLATELET COUNT 141 140 - 440 thou/cu mm 07/10/2024 2:59 PM CDT [facility] MPV 13.0(H) 6.5 - 11.0 fL 07/10/2024 2:59 PM CDT [facility] NRBC 0.0 % 07/10/2024 2:59 PM CDT [facility] ABS NRBC 0.0 thou /cu mm 07/10/2024 2:59 PM CDT [facility] % NEUT 45.7 % 07/10/2024 2:59 PM CDT [facility] % LYMPH 35.8 % 07/10/2024 2:59 PM CDT [facility] % MONO 10.0 % 07/10/2024 2:59 PM CDT [facility] % EOS 7.0 % 07/10/2024 2:59 PM CDT [facility] % BASO 1.3 % 07/10/2024 2:59 PM CDT [facility] % IMMATURE GRAN (METAS,MYELOS,PA OS) 0.2 % 07/10/2024 2:59 PM CDT [facility] ABSOLUTE NEUTROPHILS 2.1 1.7 - 7.0 thou/cu mm 07/10/2024 2:59 PM CDT [facility] ABSOLUTE LYMPHOCYTES 1.7 0.9 - 2.9 thou/cu mm 07/10/2024 2:59 PM CDT [facility] ABSOLUTE MONOCYTES 0.5 <0.9 thou/cu mm 07/10/2024 2:59 PM CDT [facility] ABSOLUTE EOSINOPHILS 0.3 <0.5 thou/cu mm 07/10/2024 2:59 PM CDT [facility] ABSOLUTE BASOPHILS 0.1 <0.3 thou/cu mm 07/10/2024 2:59 PM CDT [facility] ABSOLUTE IMMATURE GRANULOCYTES(MET ,MYELOS,PROS) 0.0 <0.3 thou/cu mm 07/10/2024 2:59 PM CDT [facility] Blood BLOOD SPECIMEN / Unknown Client Collect / Unknown 07/10/2024 7:00 AM CDT 07/10/2024 2:44 PM CDT us Gely Nina MD HEMATOLOGY Final Result [facility] [address] [place] [address], * PERIPHERAL BLD MORPHOLOGY (07/10/2024 7:00 AM CDT) Case Report Special Hematology Report Case: [id number] Authorizing Provider: Gely Nina MD Collected: 07/10/2024 0700 Ordering Location: [facility] Received: 07/10/2024 1600 Pathologist: Charles Sandoval MD Specimen: Peripheral Blood 07/11/2024 3:51 PM CDT [facility] Final Diagnosis PERIPHERAL BLOOD: 1. Moderate normocytic anemia with poikilocytosis 2. See comment 07/11/2024 3:51 PM CDT [facility] at 1551 CDT Comment The features of the anemia are nonspecific. The differential includes iron deficiency, anemia of chronic disease, anemia of chronic renal insufficiency, anatomic blood loss and medication effect. There is no morphologic evidence of hemolysis. This case was also reviewed by Marni Veras MT, MS ([facility]). 07/11/2024 3:51 PM CDT [facility] Clinical Information The the patient is a 74-year-old male. Per CBC scan: Chronic anemia Per EPIC: Additional history includes hypertension, postoperative hypotensive ASHD, chronic systolic CHF, diabetes, SP gastric bypass, and BPH. 07/11/2024 3:51 PM CDT [facility] CBC and Differential HEMATOLOGY PARAMETERS Tested at: [facility] RESULTS EXPECTED VALUES WBC: 4.7 4.5-35v1991/cumm RBC: 2.95 4.30-5.90 mil/cumm DECREASED HGB: 8.5 13.5-17.5 gm/di DECREASED HCT: 25.1 37-53% DECREASED MCV: 85.0 80-100 fl NORMOCYTIC MCH: 28.8 26-34 pg MCHC: 33.9 32-36 gm/dl NORMOCHROMIC RDW: 13.5 11.5-15.5% PLT: 141 140-660p2096/uL MPV: 13.0 6.5-11 fl ELEVATED Retic: 1.5 0.5-1.5% Differential Tested at: [facility] Absolute (%) Expected (%) (x10*9/L) (x10*9/L) Neutrophils: 2.11.7 (44.6) 1.7-7.0 (42-72%) Lymphocytes: 1.70.9 (36) 0.9-2.9 (20-44%) Monocytes: 0.5 (10.5) <0.9 (0-11%) Eosinophils: 0.3 (6.3) <0.5 (0-2%) Basophils: 0.1 (2.1) <0.3 (<3.0%) 07/11/2024 3:51 PM CDT [facility] Reticulocytes Retic: 1.5 0.5-1.5% 07/11/2024 3:51 PM CDT [facility] Microscopic Description The final diagnosis is based on microscopic examination of an appropriately stained blood smear. 07/11/2024 3:51 PM CDT [facility] Additional Information Interpreted at [facility] - [address], [place] [address] 07/11/2024 3:51 PM CDT [facility] Blood (Peripheral Blood) 07/10/2024 7:00 AM CDT 07/10/2024 4:00 PM CDT Gely Nina MD HEMATOLOGY Final Result Performing Organization Address [facility] Co de Phone Number [facility] [address] [place], [place] [id number], [place] * RETICULOCYTES (07/10/2024 7:00 AM CDT) RETIC% 1.5 0.5 - 1.5 % 07/10/2024 2:59 PM CDT [facility] RETIC (ABSOLUTE) 0.04 0.03 - 0.08 mil/cu mm 07/10/2024 2:59 PM CDT [facility] Blood BLOOD SPECIMEN / Unknown Client Collect / Unknown 07/10/2024 7:00 AM CDT 07/10/2024 2:44 PM CDT Gely Nina MD HEMATOLOGY Final Result Performing Organization Address [facility] Co de Phone Number [facility] [address] [phone], [place] * SCAN-RADIOLOGY REPORT (07/09/2024 12:00 AM [...] - 199 mg/dL 12/13/2023 10:46 PM CDT [facility] Comment: Cholesterol, Total Reference Ranges Desirable <200 mg/dL Borderline 200-239 mg/dL High >=240 mg/dL TRIGLYCERIDES 96 <150 mg/dL 12/13/2023 10:46 PM CDT [facility] HDL CHOLESTEROL 54 >40 mg/dL 10:46 PM CDT [facility] NON-HDL CHOLESTEROL 80 <145 mg/dl 12/13/2023 10:46 PM CDT [facility] CHOL/HDL RATIO 2.48 <4.50 12/13/2023 10:46 PM CDT [facility] LDL CHOLESTEROL 61 <=130 mg/dL 12/13/2023 10:46 PM CDT [facility] VLDL CHOLESTEROL 19 <=30 mg/dL 12/13/2023 10:46 PM CDT [facility] PROVIDER ORDERED STATUS RANDOM 12/13/2023 10:46 PM CDT [facility] Blood BLOOD SPECIMEN / Unknown Venipuncture / Unknown 12/13/2023 1:45 PM CDT 12/13/2023 1:45 PM CDT us Jose Linares MD CHEMISTRY Final Re sult [facility] [address] [address], [place] * CTA CHEST ABDOMEN PELVIS AORTIC [...] CHEST ABDOMEN PELVIS AORTIC DISSECTION W LOCATION: [facility] MEDICAL IMAGING DATE: 10/26/2022 INDICATION: Anemia. GI bleed. COMPARISON: 01/10/2022 TECHNIQUE: CT angiogram chest abdomen pelvis during arterial phase of injection of IV contrast. 2D and 3D MIP reconstructions were performed by the generation technologist. Dose reduction techniques were used. CONTRAST: [...] CHEST ABDOMEN PELVIS AORTIC DISSECTION W LOCATION: [facility] MEDICAL IMAGING DATE: 10/26/2022 INDICATION: Anemia. GI bleed. COMPARISON: 01/10/2022 TECHNIQUE: CT angiogram chest abdomen pelvis during arterial phase ofinjection of IV contrast. 2D and 3D MIP reconstructions were performed bythe generation technologist. Dose reduction techniques were used. CONTRAST: [...] ult * COLONOSCOPY DIAGNOSTIC (04/03/2022 12:00 AM 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 RETOUCHER) us Jose Linares MD GI PROCEDURE ORD [...] A HB ONLY BLUE CROSS MEDICARE ADVANTAGE [facility] Advance Directives * Full Code (Latest Code [...] Not DiscussedPer Advance Care Plan Care Teams Industrial Engineering Director Relationship Specialty Start Date End Date Votel, Jose Bateman MD [facility] [address] [place] [address] PCP - General Family Practice 08/17/11 [facility], [address] [address] 07/23/24
--- OUTSIDE RECORDS SUMMARY | 2024-07-24 11:49 | XMS_ITS | Clinical Summary ---
Author Organization [place] Address [address] [place] [address]. [place] [address] Care Team Providers Care Software Product Manager Name Role Phone Milagros Jose Veloz Primary Care Provider [phone] Allergies Active Allergy Reactions Criticality Noted Date [...] on file Legal Sex Male 5:05 AM MANAGEMENT LIAISON Gender Identity Not on file Sexual Orientation Not on file Last Filed Vital Signs Vital Sign Reading Time Taken Comments Blood Pressure 130/60 05/13/2022 3:23 PM MANAGEMENT LIAISON Pulse 76 05/13/2022 3:23 PM MANAGEMENT LIAISON Temperature 37.2 C (98.9 F) 05/13/2022 3:23 PM MANAGEMENT LIAISON Respiratory Rate 18 05/13/2022 3:23 PM MANAGEMENT LIAISON Oxygen Saturation 91% 05/13/2022 3:23 PM MANAGEMENT LIAISON Inhaled Oxygen Concentration - - Weight 132.3 kg (291 lb 11.2 oz) 05/09/2022 5:50 AM MANAGEMENT LIAISON scale Height 167.6 cm (5' 6) 05/09/2022 5:50 AM MANAGEMENT LIAISON s tated Body Mass Index 47.08 05/09/2022 5:50 AM MANAGEMENT LIAISON Plan of Treatment Health Maintenance Due Date [...] GLUCOSE BY METER Routine 05/13/2022 7:57 AM MANAGEMENT LIAISON from Last 3 Months or Most Recently Relevant to Health Maintenance Results * (ABNORMAL) Glucose by meter (05/13/2022 7:57 AM MANAGEMENT LIAISON) GLUCOSE BY METER POCT 111(H) 70 - 99 mg/dL 05/13/2022 8:05 AM MANAGEMENT LIAISON [facility] POCT RESULTS Blood, Capillary BLOOD SPECIMEN / Unknown 05/13/2022 7:57 AM MANAGEMENT LIAISON 05/13/2022 8:05 AM MANAGEMENT LIAISON us Lencho Walsh MD LAB - BEAKER POCT Final Re sult [facility] POCT RESULTS [address] [place] [address] from Last 3 Months or Most Recently Relevant to Health Maintenance Insurance MEDICARE [facility] MEDICARE ADVANTAGE Advance Directives For more information, please contact: [phone] * Full Code (Latest Code Status on [...] 9:17 PM 02/06/2016 1:05 PM Care Teams Software Product Manager Relationship Specialty Start Date End Date Jose Linares: [phone] PCP - General Family Practice 02/02/16
[2024-07-24] MEDS: PANTOPRAZOLE SODIUM 40 MG INJ 80 MG IVP (12:10)
--- NOTE | 2024-07-24 13:02 | P.IMHP_ITS ---
Assessment and Plan Assessment and plan (1) Hyponatremia: Problem comment: -sodium on 07/24/2024 is 116 in setting of decreased solute intake for the last 2 weeks and increase free water intake for the last 2 weeks -for the past 2 years serum sodium values have ranged from 130-132 -1200 mL fluid restriction. Normal saline at 125 mL/hour IV x1 L then saline lock. Increase solute and protein intake. Monitor her response. Status: Acute (2) Hypomagnesemia: Problem comment: -on spironolactone and PPI pantoprazole. Hold spironolactone for now. -magnesium supplementation and monitoring of magnesium levels Status: Acute (3) Gastritis: Problem comment: -per CT scan mid June 2024 -check stool antigen for Helicobacter pylori Status: Acute (4) Medical non-compliance: Problem comment: Patient reports that he is not taking his diuretic daily. He is not taking his magnesium at all. His ex- is concerned that he does not reliably take any of his medications. She tried to help him by setting up a pillbox but he was not using it regularly. Status: Acute (5) Anemia: Problem comment: - history of this, persistent, Likely needs intravenous iron as an outpatient. Hemoglobin stable at 8.6 - monitor hemoglobin - check stool antigen for Helicobacter pylori Status: Acute (6) Weakness: Problem comment: - Chronic deconditioning and weakness progressively worsening. - Additional contributors include anemia, hyponatremia, hypomagnesemia - PT and OT consultation in-hospital Status: Resolved Plan 1. Reviewed impression, plans, recommendations with patient and his ex-, Erin 2. Answered their questions are satisfaction 3. They are agreeable to above stated plans and recommendations Total Time Spent Total Time Spent: 70 minutes Hospitalist- H&P: HPI History of Present Illness Date Seen: 07/24/24 Chief complaint: Low NA Narrative: Sulaiman Trujillo is a 74 year old male who is referred to the [facility] Emergency Department today by his primary care physician at the [facility] for further assessment and intervention of a low serum sodium of 119 and a low serum magnesium of 1.1. Patient presented to his primary rn urgent care is office for blood work yesterday and the result was not available yesterday. Result became available today. Serum sodium was 119 and serum magnesium was 1.1. When his physician reviewed the results of these studies, he promptly advise that the patient present to the [facility] Emergency Department for further assessment and management. Patient was struggling with abdominal pain in early June 2024. On 07/05/[address]24 he [address] the [facility] Emergency Department and was started on oral antibiotics for clinical and radiographic diagnosis of diverticulitis. [place] his condition was worsening subsequently such that on 07/09/20[address] the [facility] Emergency Department with weakness, atrial flut ter, borderline hypotension. CT scan demonstrated improvement of diverticulitis. Interestingly the CT scan also demonstrated inflammation in the antrum worrisome for gastritis, with no testing for Helicobacter pylori. Treated for hypotension and sepsis. Had hypomagnesemia at that time and was treated for the same. Hemoglobin was down to 8.4 g per dL. Had no obvious blood loss. Since he was last hospitalized he has been subsiding mainly on clear liquids such as water, sprayed, apple juice, Jell-O. Some days he is also able to consume 1 nutritional supplement daily. Has been feeling generally weak. This interest in eating. No nausea or vomiting. In our emergency department his main concern is weakness. Able to carry out full conversations. Denies any blood loss. Again and acknowledges drinking primarily clear liquids with very little solute sore protein. Repeat serum sodium 116 and repeat magnesium 1.0. Decision is made to admit the patient to the hospital due to this is severe acute on chronic hyponatremia with associated hypomagnesemia. In considering these 2 problems, most likely the hyponatremia is from free water intake with insufficient solute intake. With regard to the hypomagnesemia, he does take torsemide, spironolactone, as well as magnesium supplementation. Additionally however, he is also on chronic dose of pantoprazole 40 mg once daily, which is known to cause hypomagnesemia. Review of Systems Status of ROS: Reports: 6 or more systems reviewed and unremarkable except as noted in History and below Narrative: Ordinarily lives alone, independently in his own home. Since early June when he has had all these symptoms he has been living for the most part with his ex- , Erin. Designates his ex-, Erin, as his spokesperson, who can make healthcare decisions on his behalf in the event he is not able to speak on his own behalf during the course of this hospitalization. Designates his son as an alternative. Requests full resuscitation in the event of cardiopulmonary demise. Does not consume any products with alcohol. Does not use tobacco products. Denies bright red blood per rectum, melena, hematochezia, hematemesis, hemoptysis, epistaxis, hematuria, melena, hematochezia, or any other blood loss. No recent trauma or injury. Denies chest heaviness, pressure, tightness, pain. Denies syncope or near- syncope. Denies nausea vomiting. Denies palpitations. Acknowledges awareness of increased dyspnea with exertion. Denies dyspnea at rest. Acknowledges intermittent edema bilateral lower extremities. [facility] Medical History (Updated 07/24/24 @ 14:09 by Elgin Mahmood MD) Anemia ?D64.9 - Anemia, unspecified (ICD-10) Atrial flutter with rapid ventricular response ?I48.92 - Unspecified atrial flutter (ICD-10) Gastritis ?K29.70 - Gastritis, unspecified, without bleeding (ICD-10) Diverticulitis ?K57.92 - Diverticulitis of intestine, part unspecified, without perforation or abscess without bleeding (ICD-10) NSTEMI (non-ST elevated myocardial infarction) ?I21.4 - Non-ST elevation (NSTEMI) myocardial infarction (ICD-10) Polyp of duodenum ?K31.7 - Polyp of stomach and duodenum (ICD-10) Sinus tachycardia ?R00.0 - Tachycardia, unspecified (ICD-10) Heart failure with preserved ejection fraction ?I50.30 - Unspecified diastolic (congestive) heart failure (ICD-10) Hyponatremia ?E87.1 - Hypo-osmolality and hyponatremia (ICD-10) Obstructive sleep apnea ?G47.33 - Obstructive sleep apnea (adult) (pediatric) (ICD-10) Hypokalemia ?E87.6 - Hypokalemia (ICD-10) Noncompliance with medication regimen ?Z91.148 - Patient's other noncompliance with medication regimen for other reason (ICD-10) Type 2 SD (myocardial infarction) ?I21.A1 - Myocardial infarction type 2 (ICD-10) Sepsis associated hypotension ?A41.9 - Sepsis, unspecified organism (ICD-10) ?I95.9 - Hypotension, unspecified (ICD-10) Metabolic encephalopathy ?G93.41 - Metabolic encephalopathy (ICD-10) Acute right-sided weakness ?R53.1 - Weakness (ICD-10) Medical non-compliance ?Z91.199 - Patient's noncompliance with other medical treatment and regimen due to unspecified reason (ICD-10) Unintentional weight loss ?R63.4 - Abnormal weight loss (ICD-10) Atrial arrhythmia ?I49.8 - Other specified cardiac arrhythmias (ICD-10) Abnormal CT of brain ?R90.89 - Other abnormal findings on diagnostic imaging of central nervous system (ICD-10) Episode of gagging ?R19.8 - Other specified symptoms and signs involving the digestive system and abdomen (ICD-10) Seborrhea of face ?L21.9 - Seborrheic dermatitis, unspecified (ICD-10) Nausea ?R11.0 - Nausea (ICD-10) Microcytic anemia ?D50.9 - Iron deficiency anemia, unspecified (ICD-10) Steroid-induced hyperglycemia ?R73.9 - Hyperglycemia, unspecified (ICD-10) ?T38.0X5A - Adverse effect of glucocorticoids and synthetic analogues, initial encounter (ICD-10) Pituitary adenoma with extrasellar extension ?D35.2 - Benign neoplasm of pituitary gland (ICD-10) Benign non-nodular prostatic hyperplasia with lower urinary tract symptoms ?N40.1 - Benign prostatic hyperplasia with lower urinary tract symptoms (ICD- 10) ASHD (arteriosclerotic heart disease) ?I25.10 - Atherosclerotic heart disease of [place] coronary artery without angina pectoris (ICD-10) Kidney stones ?N20.0 - Calculus of kidney (ICD-10) Aortic stenosis ?I35.0 - Nonrheumatic aortic (valve) stenosis (ICD-10) MRSA bacteremia ?R78.81 - Bacteremia (ICD-10) ?B95.62 - Methicillin resistant Staphylococcus aureus infection as the cause of diseases classified elsewhere (ICD-10) Postoperative hypotension ?I95.81 - Postprocedural hypotension (ICD-10) Morbid obesity ?E66.01 - Morbid (severe) obesity due to excess calories (ICD-10) Hyperlipidemia ?E78.5 - Hyperlipidemia, unspecified (ICD-10) Abnormal colonoscopy ?R93.3 - Abnormal findings on diagnostic imaging of other parts of digestive tract (ICD-10) Hx of colonic polyps ?Z86.010 - Personal history of colonic polyps (ICD-10) Sleep apnea ?G47.30 - Sleep apnea, unspecified (ICD-10) Malignant melanoma of right upper extremity ?C43.61 - Malignant melanoma of right upper limb, including shoulder (ICD-10) Hypertension ?I10 - Essential (primary) hypertension (ICD-10) Diabetes mellitus type 2 in obese ?E11.69 - Type 2 diabetes mellitus with other specified complication (ICD-10) ?E66.9 - Obesity, unspecified (ICD-10) Surgical History History of transurethral resection of prostate ?Z98.890 - Other specified postprocedural states (ICD-10) ?Z90.79 - Acquired absence of other genital organ(s) (ICD-10) 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) H/O vasectomy ?Z98.52 - Vasectomy status (ICD-10) S/P skin biopsy ?Z98.890 - Other specified postprocedural states (ICD-10) H/O nephrostomy H/O lithotripsy ?Z98.890 - Other specified postprocedural states (ICD-10) S/P laparoscopic sleeve gastrectomy ?Z98.84 - Bariatric surgery status (ICD-10) History of total right hip arthroplasty ?Z96.641 - Presence of right artificial hip joint (ICD-10) H/O umbilical hernia repair ?Z98.890 - Other specified postprocedural states (ICD-10) ?Z87.19 - Personal history of other diseases of the digestive system (ICD-10) H/O hemorrhoidectomy ?Z98.890 - Other specified postprocedural states (ICD-10) Hx of colonoscopy ?Z98.890 - Other specified postprocedural states (ICD-10) H/O right hemicolectomy ?Z90.49 - Acquired absence of other specified parts of digestive tract (ICD- 10) Hx of appendectomy ?Z90.49 - Acquired absence of other specified parts of digestive tract (ICD- 10) Family History Father Colon cancer Obesity Sister Diabetes Obesity Mother Heart disease High blood pressure Hyperlipidemia Obesity Stroke Social History Narrative: [place] Requests that we talk with his ex- about current health issues. Son is also actively involved in assisting his care. Wishes to be full code. He does not smoke. What is your current living situation?: I presently have a place to live Problems where you live: no known problems Problems where you live details: n/a In the past 12 months, utilities in danger of being shut off: no In past 12 months, lack of transportation kept you from medical appts, meetings, work, or getting things needed for daily living: no In the past 12 mos, have been you worried that your food would run out before you had money to buy more?: never true In the past 12 mos, the food you bought just didn't last and you didn't have money to buy more?: never true Highest level of school completed/degree received: Associate degree: occupational, technical, vocational program Smoking Status: Former smoker What tobacco products do you use: cigarettes Years smoked: 30 Smoking quit date/years: >15 years ago Do you use any of these nicotine containing products: None Second hand tobacco smoke exposure: No How often do you have a drink containing alcohol: monthly or less Alcohol type: beer How many standard drinks containing alcohol do you have on a typical day: 1 or 2 How often do you have six or more drinks on one occasion: Less than monthly AUDIT-C Alcohol total score: 2 Non-prescribed substance use: denies use Caffeine: Yes (3-4 daily) How often does anyone, including family, friends and others, physically hurt you : never How often does anyone, including family, friends and others, insult or talk down to you: never How often does anyone, including family, friends and others, threaten you with harm: never How often does anyone, including family, friends and others, scream or curse at you: never Do you think of yourself as: straight/heterosexual Gender Identity: male service: No Meds Home Medications and Allergies Home Medications ?Medication ?Instructions ?Recorded ?Confirmed ?Type atorvastatin 40 mg tablet 40 mg PO DAILY 01/10/22 07/24/24 History citalopram 10 mg tablet 10 mg PO DAILY 01/10/22 07/24/24 History metformin 1,000 mg tablet 1,000 mg PO BIDWM 01/10/22 07/24/24 History cholecalciferol (vitamin D3) 25 1,000 unit PO DAILY 01/23/22 07/24/24 History mcg (1,000 unit) tablet pantoprazole 40 mg tablet,delayed 40 mg PO DAILY 01/23/22 07/24/24 History release lisinopril 10 mg tablet 20 mg PO DAILY 09/26/22 07/24/24 History amlodipine 5 mg tablet 5 mg PO DAILY 02/08/24 07/24/24 History spironolactone 25 mg tablet 25 mg PO DAILY 02/08/24 07/24/24 History Allergies Allergy/AdvReac Type Severity Reaction Status Date / Time No Known Drug Allergies Allergy Verified 07/24/24 10:16 Exam Narrative: Exam Narrative: I examine him in the emergency department. Appears comfortable and in no acute distress. Alert and oriented x4. Appears pale. Hearing and vision are adequate. External auditory canals and tympanic membranes are normal. Midline nasal septum. Dry buccal mucosa. Dentition in fair repair. Does not have icterus or conjunctival injection. Conjugate gaze. No focal motor neurologic deficits. Lungs are clear to auscultation. No wheezing, rhonchi, rales. Barrel shaped chest. Chest wall excursions full. Heart tones with regular rhythm, normal S1-S2, without gallop or rub. Loud, harsh systolic murmur across the precordium, not new. PMI is not laterally displaced. Abdomen is obese with active bowel sounds, soft, nontender. Trace edema pretibially bilaterally. Independent with transfers, station, gait. Const: Vital Signs, click to edit/add: Vital Signs - 24 hr 07/24/24 10:16 07/24/24 11:02 07/24/24 11:15 Temperature 97.4 F L Pulse Rate 65 51 L Pulse Rate [Pulse Oximeter] 65 Respiratory Rate 18 8 L 9 L Blood Pressure [Ri ght Upper Arm] 137/73 Pulse Oximetry 94 98 95 Oxygen Delivery Me thod Room Air 07/24/24 11:30 07/24/24 11:45 07/24/24 12:00 Temperature Pulse Rate 59 L 62 57 L Pulse Rate [Pulse Oximeter] Respiratory Rate 14 8 L 9 L Blood Pressure [Ri ght Upper Arm] Pulse Oximetry 97 97 97 Oxygen Delivery Me thod 07/24/24 12:15 Temperature Pulse Rate 59 L Pulse Rate [Pulse Oximeter] Respiratory Rate 8 L Blood Pressure [Ri ght Upper Arm] Pulse Oximetry 96 Oxygen Delivery [facility] Hospitalist - H&P: Result Labs Labs: Short CBC 07/24/24 Range/Units 10:45 WBC 4.60 (4.50-11.00) K/uL Hgb 8.5 L (13.5-17.5) gm/dL Hct 24.3 L (37.0-53.0) % Plt Count 195 (140-440) K/uL BMP 07/24/24 10:45 Sodium 116 L* Potassium 3.7 Chloride 83 L Carbon Dioxide 24 BUN 16 Creatinine 0.6 Glucose 82 Calcium 9.1 Liver Function 07/24/24 Range/Units 10:45 Total Bilirubin 0.5 (0.1-1.5) mg/dL AST 64 H (12-35) U/L ALT 36 (4-50) U/L Alkaline Phosphatase 67 (40-150) U/L Albumin 3.7 (3.3-5.0) g/dL ECG ECG interpretation date: 07/24/24 Interpretation: Sinus bradycardia with right bundle branch block, unchanged from ECG from 2 weeks ago.
[2024-07-24] MEDS: 0.9 % SODIUM CHLORIDE 1000 ml 1,000 ML 125 ML IV (13:50)
[2024-07-24] MEDS: MAGNESIUM SULFATE 2 GM/50 ML PIGGYBACK IVPB (13:50)
[2024-07-24 16:13] LABS: Magnesium* 1.2 mg/dL (1.5-2.6)
[2024-07-24 16:16] LABS: Sodium* 116 mmol/L (135-149)
[2024-07-24] MEDS: METFORMIN 1,000 MG TABLET 1000 MG PO (17:58)
--- NOTE | 2024-07-24 19:08 | PC.NURSE ---
End of shift [id number] ? Pt arrived from ED at approximately 1235. Pt up with standby assistance from bed to bathroom. Tolerating RA and regular diet and fluid restriction per MD order. Denies pain, SOB, n/v. Family at bedside. Pt appears to be resting comfortably at end of shift with call light within reach.
[2024-07-24] MEDS: MAGNESIUM OXIDE 400 MG TABLET PO (20:25)
[2024-07-24] MEDS: SODIUM CHLORIDE 0.9 % (FLUSH) 10 ML SYRINGE 5 ML IVF (20:26)
[2024-07-24] MEDS: 3 % SODIUM CHLORIDE 500 ml 100 ML 33.33 ML IV (22:35)
[2024-07-24] MEDS: ACETAMINOPHEN 325 MG TABLET 650 MG PO (23:48)
[2024-07-24] MEDS: LORazepam 0.5 MG TABLET PO (23:48)
[2024-07-25] VITALS (10 sets, daily range): BP systolic 104–129; BP diastolic 51–64; PULSE 59–74; RESP 16–18; TEMP 36.4–37; O2SAT 94–100
[2024-07-25] MEDS: OMEPRAZOLE 20 MG CAPSULE DR 40 MG PO (06:43)
--- NOTE | 2024-07-25 06:50 | PC.NURSE ---
Pt alert and oriented x3. Afebrile. Pt reports 4/10 headache, managed with PRN Tylenol. Pt wore CPAP for about 2-3 hours and then took it off not wanting to wear it the rest of the night. Gave pt education on benefits of wearing CPAP?pt refused. Pt up SBA with walker, voiding, and tolerating a 1200 fluid restriction. ?
[2024-07-25 06:51] LABS: Lactate* < 0.4 mmol/L (0.5-1.9)
[2024-07-25 06:54] LABS: Hemoglobin* 8.1 gm/dL (13.5-17.5); Immature Reticulocyte Fraction 14.2 % (2.3-13.4); Mean Corpuscular HGB Conc 35 gm/dL (32-36); Mean Corpuscular Hemoglobin 29 pg (26-34); Mean Corpuscular Volume 83 fL (80-100); Platelet Count* 194 K/uL (140-440); Red Blood Count* 2.76 m/uL (4.30-5.90); Reticulocyte Percent 2.1 % (0.5-2.0); Reticulocytes Absolute 0.06 # (0.03-0.08); Slide Review Reflex No; White Blood Count* 4.97 K/uL (4.50-11.00)
[2024-07-25 07:35] LABS: Chloride* 87 mmol/L (96-114)
[2024-07-25 07:36] LABS: Potassium* 3.6 mmol/L (3.6-5.1)
[2024-07-25 07:38] LABS: Blood Urea Nitrogen* 14 mg/dL (7-30); Creatinine* 0.5 mg/dL (0.5-1.5); Est. Creatinine Clearance* 60.59; Estimated Glomerular Filt Rate 107 ml/min; Lipase* 173 U/L (23-300)
[2024-07-25 07:39] LABS: Anion Gap 4 mEq/L (7-15); Calcium* 8.8 mg/dL (8.4-10.6); Carbon Dioxide* 27 mmol/L (20-32); Glucose* 70 mg/dL (60-115); Magnesium* 1.3 mg/dL (1.5-2.6); Phosphorus* 3.5 mg/dL (2.5-4.5)
[2024-07-25] MEDS: POTASSIUM CHLORIDE 10 MEQ CAPSULE ER 20 MEQ PO (07:39)
[2024-07-25] MEDS: METFORMIN 1,000 MG TABLET 1000 MG PO ×2 (07:40→18:40)
[2024-07-25 07:44] LABS: C Reactive Protein* < 0.5 mg/dL (0.5-1.0); Sodium* 118 mmol/L (135-149)
[2024-07-25] MEDS: 3 % SODIUM CHLORIDE 500 ml 100 ML 33.33 ML IV ×2 (08:19→15:19)
[2024-07-25] MEDS: AMLODIPINE 5 MG TABLET PO (08:24)
[2024-07-25] MEDS: SODIUM CHLORIDE 0.9 % (FLUSH) 10 ML SYRINGE 5 ML IVF ×2 (08:24→20:17)
[2024-07-25] MEDS: MAGNESIUM OXIDE 400 MG TABLET PO ×2 (08:25→20:17)
[2024-07-25] MEDS: METOPROLOL SUCCINATE (XL) 25 MG TAB PO (08:25)
[2024-07-25] MEDS: lisinopriL 20 MG TABLET PO (08:25)
[2024-07-25] MEDS: TORSEMIDE 5 MG TABLET PO (08:25)
[2024-07-25] MEDS: ATORVASTATIN CALCIUM 40 MG TABLET PO (08:25)
[2024-07-25] MEDS: ASPIRIN 81 MG TAB.CHEW PO (08:26)
[2024-07-25] MEDS: ESCITALOPRAM 10 MG TABLET PO (08:26)
--- NOTE | 2024-07-25 10:09 | NUTR.NU ---
RDN with Md consult. Patient admitted for Hypomagnesemia, hyponatremia, and gastritis. He was in the ER on 07/05/2024 for diverticulitis. He was hospitalized on 07/09/2024 for hypotension and sepsis. Since that hospitalization, he reports sticking to a liquid diet. Some days patient reports eating very little. He reports being afraid of eating solid foods in fear of becoming ill. Current weight 242lb 1oz; height 5ft 7in; BMI 37.9 kg/m2. Patient has lost about 8 lbs in 2 weeks. Current diet is Regular. Dinner consumed 07/24 was 100%. Visited with patient whom is tolerating solid foods. He reports eating toast, bananas, and coffee this morning. Discussed utilizing oral rehydration beverages such as Gatorade or Pedialyte and protein supplements when limiting to a liquid diet. Patient verbalized his understanding. No nutrition interventions at this time. Patient is eating solid foods and tolerating well. RDN will continue to monitor and follow-up prn.
[2024-07-25 12:55] LABS: Sodium* 118 mmol/L (135-149)
--- NOTE | 2024-07-25 15:58 | PC.NURSE ---
Pt alert, oriented and vitally stable. Denies pain. Pt blood sugar at 1130 was 67, orange juice and meal provided. Pt on 1200 FR. SBA to 1a while up. Pt did not have BM on shift. Pt in chair throughout shift, call light within reach. ?
--- NOTE | 2024-07-25 16:04 | PM.IMPN1 ---
Assessment and Plan Assessment and plan (1) Hyponatremia: Problem comment: -sodium on 07/24/2024 is 116 in setting of decreased solute intake for the last 2 weeks and increase free water intake for the last 2 weeks -for the past 2 years serum sodium values have ranged from 130-132 -1200 mL fluid restriction. Normal saline at 125 mL/hour IV x1 L then saline lock. Increase solute and protein intake. Monitor her response. -07/25/2024: Serum sodium 118 after 100 mL aliquot of 3% hypertonic saline. Continue with hypertonic saline administration intermittently and monitoring serum sodium response with goal of slowly normalizing serum sodium. Continue with 1200 mL fluid restriction. Consider additional testing if warranted. Status: Acute (2) Hypomagnesemia: Problem comment: -on spironolactone and PPI pantoprazole. Hold spironolactone for now. -magnesium supplementation and monitoring of magnesium levels. Will try to not administer magnesium IV any longer given that this is in D5W. Will proceed with IV magnesium if warranted. Status: Acute (3) Gastritis: Problem comment: -per CT scan mid June 2024 -check stool antigen for Helicobacter pylori Status: Acute (4) Medical non-compliance: Problem comment: -Patient reports that he is not taking his diuretic daily. He is not taking his magnesium at all. His ex- is concerned that he does not reliably take any of his medications. She tried to help him by setting up a pillbox but he was not using it regularly. Status: Acute (5) Anemia: Problem comment: - history of anemia, persistent. Likely needs intravenous iron as an outpatient. Hemoglobin stable at 8.6 before we start giving him IV fluids here. - monitor hemoglobin - check stool antigen for Helicobacter pylori Status: Acute (6) Weakness: Problem comment: - Chronic deconditioning and weakness progressively worsening. - Additional contributors include anemia, hyponatremia, hypomagnesemia - PT and OT consultation in-hospital Status: Resolved Plan 1. Reviewed impression with patient and his ex-, Erin, whom he lives with and who helps him. 2. Answered their questions 3. They are agreeable to proceed as specified Total Time Spent Total Time Spent: 40 minutes Subjective Date Seen: 07/25/24 Interval history: Admission history of present illness: ?74 year old male who is referred to the [facility] Emergency Department today by his primary care physician at the [facility] for further assessment and intervention of a low serum sodium of 119 and a low serum magnesium of 1.1. ?Patient presented to his primary managed care director is office for blood work yesterday and the result was not available yesterday. Result became available today. Serum sodium was 119 and serum magnesium was 1.1. When his physician reviewed the results of these studies, he promptly advise that the patient present to the [facility] Emergency Department for further assessment and management. ?Patient was struggling with abdominal pain in early June 2024. On 07/05/2024 he presented to the [facility] Emergency Department and was started on oral antibiotics for clinical and radiographic diagnosis of diverticulitis. [place] his condition was worsening subsequently such that on 07/09/2024 presented again to the [facility] Emergency Department with weakness, atrial flutter, borderline hypotension. CT scan demonstrated improvement of diverticulitis. Interestingly the CT scan also demonstrated inflammation in the antrum worrisome for gastritis, with no testing for Helicobacter pylori. Treated for hypotension and sepsis. Had hypomagnesemia at that time and was treated for the same. Hemoglobin was down to 8.4 g per dL. Had no obvious blood loss. ?Since he was last hospitalized he has been subsiding mainly on clear liquids such as water, sprayed, apple juice, Jell-O. Some days he is also able to consume 1 nutritional supplement daily. Has been feeling generally weak. This interest in eating. No nausea or vomiting. ?In our emergency department his main concern is weakness. Able to carry out full conversations. Denies any blood loss. Again and acknowledges drinking primarily clear liquids with very little solute sore protein. Repeat serum sodium 116 and repeat magnesium 1.0. Decision is made to admit the patient to the hospital due to this is severe acute on chronic hyponatremia with associated hypomagnesemia. In considering these 2 problems, most likely the hyponatremia is from free water intake with insufficient solute intake. With regard to the hypomagnesemia, he does take torsemide, spironolactone, as well as magnesium supplementation. Additionally however, he is also on chronic dose of pantoprazole 40 mg once daily, which is known to cause hypomagnesemia.? Hospital day 2 (07/25/2024). He states he is feeling about 20% stronger today than yesterday and he is actually tolerating eating. Denies nausea vomiting. Has not had much to eat all over the last 2-3 weeks. Has been subsiding mainly on toast and 7 up and water. Denies pain. Denies blood loss. Denies orthostasis, syncope or near syncope, lightheadedness, dizziness. Exam Narrative: Exam Narrative: Examine him in his hospital room. Appears comfortable no acute distress. Friendly, articulate, cooperative. Alert and oriented x4. Lungs are clear to auscultation. Heart tones with regular rhythm. Abdomen obese with active bowel sounds, soft, nontender. Trace edema pretibially bilaterally. Moves all 4 extremities without focal motor neurologic deficits. Const: Vital Signs, click to edit/add: Vital Signs - 24 hr 07/24/24 16:19 07/24/24 16:19 07/24/24 19:25 Temperature 97.1 F L 97.1 F L Pulse Rate [Pulse Oximeter] 59 L 66 Respiratory Rate 20 20 16 Blood Pressure [Le ft Arm] 129/51 L 102/45 L Pulse Oximetry 92 92 [facility] Room [facility] Room Air 07/24/24 23:45 07/24/24 23:45 07/24/24 23:45 Temperature Pulse Rate [Pulse Oximeter] 66 Respiratory Rate 16 Blood Pressure [Le ft Arm] Pulse Oximetry 96 96 [facility] 07/24/24 23:45 07/25/24 03:20 07/25/24 07:00 Temperature 98.3 F 97.5 F L 98.0 F Pulse Rate [Pulse Oximeter] 66 59 L 69 Respiratory Rate 16 16 18 Blood Pressure [Le ft Arm] 121/52 L 128/57 L 129/52 L Pulse Oximetry 96 97 100 [facility] Room Air Room Air 07/25/24 07:00 07/25/24 07:00 07/25/24 07:00 Temperature Pulse Rate [Pulse Oximeter] 69 Respiratory Rate 18 Blood Pressure [Le ft Arm] Pulse Oximetry 95 96 [facility] 07/25/24 11:00 Temperature 98.2 F Pulse Rate [Pulse Oximeter] 74 Respiratory Rate 18 Blood Pressure [Le ft Arm] 110/51 L Pulse Oximetry 95 [facility] Labs Labs: Laboratory Results - last 24 hr 07/24/24 07/25/24 07/25/24 15:20 06:11 12:10 WBC 4.97 RBC 2.76 L Hgb 8.1 L Hct 23.0 L MCV 83 MCH 29 MCHC 35 Plt Count 194 Absolute Retic 0.06 Percent Retic 2.1 H Immature Retic Fraction 14.2 H Retic Hgb Equivalent 28.0 L Sodium 116 L* 118 L* 118 L* Potassium 3.6 Chloride 87 L Carbon Dioxide 27 Anion Gap 4 L BUN 14 Creatinine 0.5 Estimated Creat Clear 60.59 Estimated GFR 107 Glucose 70 Lactate < 0.4 L Calcium 8.8 Phosphorus 3.5 Magnesium 1.2 L 1.3 L C-Reactive Protein < 0.5 L Lipase 173 TSH 1.130
[2024-07-25 19:01] LABS: Sodium* 121 mmol/L (135-149)
[2024-07-25 22:47] LABS: H pylori Ag Stool* Negative (Negative)
[2024-07-25 23:01] LABS: Sodium* 122 mmol/L (135-149)
[2024-07-26 02:16] VITALS: BP 125/54; PULSE 67; RESP 18; TEMP 36.2; O2SAT 95
--- NOTE | 2024-07-26 04:51 | PC.NURSE ---
Pt has been eating and snacking. BG 85 @ . Na 122 @ [id number]. Reporting zero pain. Pt up A1. BM last evening. VS unremarkable
[2024-07-26 04:58] LABS: Hematocrit* 23.4 % (37.0-53.0); Mean Corpuscular HGB Conc 34 gm/dL (32-36); Mean Corpuscular Hemoglobin 29 pg (26-34); Mean Corpuscular Volume 85 fL (80-100); Platelet Count* 195 K/uL (140-440); Red Blood Count* 2.74 m/uL (4.30-5.90); White Blood Count* 5.91 K/uL (4.50-11.00)
[2024-07-26 05:00] LABS: Slide Review Reflex No
[2024-07-26 05:10] LABS: Chloride* 90 mmol/L (96-114)
[2024-07-26 05:11] LABS: Potassium* 4.1 mmol/L (3.6-5.1)
[2024-07-26 05:13] LABS: Anion Gap 10 mEq/L (7-15); Blood Urea Nitrogen* 18 mg/dL (7-30); Carbon Dioxide* 23 mmol/L (20-32); Creatinine* 0.5 mg/dL (0.5-1.5); Est. Creatinine Clearance* 60.59; Estimated Glomerular Filt Rate 107 ml/min
[2024-07-26 05:14] LABS: Calcium* 8.9 mg/dL (8.4-10.6); Glucose* 60 mg/dL (60-115)
[2024-07-26 05:24] LABS: Sodium* 123 mmol/L (135-149)
[2024-07-26] MEDS: OMEPRAZOLE 20 MG CAPSULE DR 40 MG PO (06:05)
[2024-07-26 07:46] VITALS: BP 132/62; PULSE 73; RESP 18; TEMP 36.2; O2SAT 93
[2024-07-26] MEDS: POTASSIUM CHLORIDE 10 MEQ CAPSULE ER 20 MEQ PO (07:54)
[2024-07-26] MEDS: METFORMIN 1,000 MG TABLET 1000 MG PO ×2 (07:54→17:57)
[2024-07-26] MEDS: MAGNESIUM OXIDE 400 MG TABLET PO ×2 (09:11→20:42)
[2024-07-26] MEDS: ATORVASTATIN CALCIUM 40 MG TABLET PO (09:11)
[2024-07-26] MEDS: METOPROLOL SUCCINATE (XL) 25 MG TAB PO (09:12)
[2024-07-26] MEDS: TORSEMIDE 5 MG TABLET PO (09:12)
[2024-07-26] MEDS: AMLODIPINE 5 MG TABLET PO (09:12)
[2024-07-26] MEDS: ASPIRIN 81 MG TAB.CHEW PO (09:12)
[2024-07-26] MEDS: lisinopriL 20 MG TABLET PO (09:12)
[2024-07-26] MEDS: ESCITALOPRAM 10 MG TABLET PO (09:12)
[2024-07-26] MEDS: SODIUM CHLORIDE 0.9 % (FLUSH) 10 ML SYRINGE 5 ML IVF ×2 (09:14→20:43)
[2024-07-26 11:03] VITALS: BP 149/55; PULSE 64; RESP 12; TEMP 36.7; O2SAT 96
--- NOTE | 2024-07-26 13:38 | P.IMPN_ITS ---
Assessment and Plan Assessment and plan (1) Hyponatremia: Problem comment: -sodium on 07/24/2024 is 116 in setting of decreased solute intake for the last 2 weeks and increase free water intake for the last 2 weeks -for the past 2 years serum sodium values have ranged from 130-132 -1200 mL fluid restriction. Normal saline at 125 mL/hour IV x1 L then saline lock. Increase solute and protein intake. Monitor her response. -07/25/2024: Serum sodium 118 after 100 mL aliquot of 3% hypertonic saline. Continue with hypertonic saline administration intermittently and monitoring serum sodium response with goal of slowly normalizing serum sodium. Continue with 1200 mL fluid restriction. Consider additional testing if warranted. -07/26/2024: serum sodium improved, 123. Continue fluid restriction. Continue trending sodium. Patient asymptomatic. Status: Acute (2) Hypomagnesemia: Problem comment: -on spironolactone and PPI pantoprazole. Hold spironolactone for now. -magnesium supplementation and monitoring of magnesium levels. Will try to not administer magnesium IV any longer given that this is in D5W. Will proceed with IV magnesium if warranted. -repeat magnesium tomorrow morning Status: Acute (3) Gastritis: Problem comment: -per CT scan mid June 2024 -check stool antigen for Helicobacter pylori Status: Acute (4) Medical non-compliance: Problem comment: -Patient reports that he is not taking his diuretic daily. He is not taking his magnesium at all. His ex- is concerned that he does not reliably take any of his medications. She tried to help him by setting up a pillbox but he was not using it regularly. Status: Acute (5) Anemia: Problem comment: - history of anemia, persistent. Likely needs intravenous iron as an outpatient. Hemoglobin stable at 8.6 before we start giving him IV fluids here. - monitor hemoglobin - check stool antigen for Helicobacter pylori Status: Acute (6) Weakness: Problem comment: - Chronic deconditioning and weakness progressively worsening. - Additional contributors include anemia, hyponatremia, hypomagnesemia - PT and OT consultation in-hospital Status: Resolved Total Time Spent Total Time Spent: Today I spent 50 minutes seeing the patient, reviewing Expanse and EPIC notes/diagnostics, discussing the care plan with our care time that includes social work, PT/OT, pharmacy, RT, custodial and documenting my impressions and plan in the medical record. Subjective Date Seen: 07/26/24 Interval history: Patient was seen and examined at bedside today. Patient states that he feels much better he is not weak anymore. He denies any symptoms like headache, lightheadedness, nausea or vomiting. Tolerating diet. Exam Narrative: Exam Narrative: Physical exam GENERAL: Comfortable, no acute distress. HEAD AND NECK: Atraumatic, normocephalic CARDIOVASCULAR: RRR. Normal S1, S2. Patient has a murmur. RESPIRATORY: Clear to auscultation B/L. Good air entry B/L. No wheezes or rhonchi. GASTROINTESTINAL: Not distended, not tender to palpation. NEUROLOGY: Alert, awake, oriented. Normal speech. PSYCH: Normal mood, normal affect. Const: Vital Signs, click to edit/add: Vital Signs - 24 hr 07/25/24 15:30 07/25/24 15:30 07/25/24 15:30 Temperature 98.6 F Pulse Rate [Pulse Oximeter] 66 Respiratory Rate 18 18 Blood Pressure [Le ft Arm] 109/64 Blood Pressure [Ri ght Arm] Pulse Oximetry 94 94 100 Oxygen Delivery Me thod Room Air Room Air 07/25/24 16:00 07/25/24 19:33 07/25/24 22:06 Temperature 98.4 F 97.6 F Pulse Rate [Pulse Oximeter] 66 65 68 Respiratory Rate 18 18 18 Blood Pressure [Le ft Arm] 104/60 124/53 L Blood Pressure [Ri ght Arm] Pulse Oximetry 97 95 Oxygen Delivery Me thod Room Air Room Air 07/25/24 22:07 07/25/24 22:08 07/25/24 22:09 Temperature Pulse Rate [Pulse Oximeter] 68 Respiratory Rate 18 18 Blood Pressure [Le ft Arm] Blood Pressure [Ri ght Arm] Pulse Oximetry 95 95 Oxygen Delivery Me thod Room Air 07/26/24 02:16 07/26/24 07:46 07/26/24 07:46 Temperature 97.1 F L 97.2 F L Pulse Rate [Pulse Oximeter] 67 73 Respiratory Rate 18 18 Blood Pressure [Le ft Arm] 125/54 L 132/62 Blood Pressure [Ri ght Arm] Pulse Oximetry 95 93 93 Oxygen Delivery Me thod Room Air Room Air 07/26/24 07:46 07/26/24 07:46 07/26/24 11:03 Temperature 98.1 F Pulse Rate [Pulse Oximeter] 73 64 Respiratory Rate 18 18 12 Blood Pressure [Le ft Arm] Blood Pressure [Ri ght Arm] 149/55 H Pulse Oximetry 93 96 Oxygen Delivery Me thod Room Air Room Air Labs Labs: Laboratory Results - last 24 hr 07/25/24 07/25/24 07/25/24 18:17 19:37 22:32 WBC RBC Hgb Hct MCV MCH MCHC Plt Count Sodium 121 L* 122 L* Potassium Chloride Carbon Dioxide Anion Gap BUN Creatinine Estimated Creat Clear Estimated GFR Glucose Calcium Stool H. pylori Ag Negative 07/26/24 04:44 WBC 5.91 RBC 2.74 L Hgb 8.0 L Hct 23.4 L MCV 85 MCH 29 MCHC 34 Plt Count 195 Sodium 123 L* Potassium 4.1 Chloride 90 L Carbon Dioxide 23 Anion Gap 10 BUN 18 Creatinine 0.5 Estimated Creat Clear 60.59 Estimated GFR 107 Glucose 60 Calcium 8.9 Stool H. pylori Ag
[2024-07-26 14:21] LABS: Sodium* 123 mmol/L (135-149)
[2024-07-26] MEDS: 3 % SODIUM CHLORIDE 500 ml 50 ML 33.33 ML IV (14:46)
[2024-07-26 15:00] VITALS: BP 126/56; PULSE 68; RESP 16; TEMP 36.6; O2SAT 95; O2SAT 96
--- NOTE | 2024-07-26 15:15 | PC.NURSE ---
End of Shift: Patient pleasant and cooperative. Patient vitally stable, lungs clear, BS WNL, IV currently running sodium at 33.33. Patient denies pain. Patient SBA/walker. Blood sugars 58 and 61. Patient tolerating regular diet, urinating, and had 2 loose BMs. Patient up in chair comfortably, lets his needs known.
--- NOTE | 2024-07-26 18:56 | PC.NURSE ---
Patient up for walk in the [facility] this evening with nursing staff. Tolerated well with minimal SOB.
[2024-07-26 19:00] VITALS: BP 127/61; PULSE 72; RESP 16; TEMP 36.2; O2SAT 93
[2024-07-26 22:13] VITALS: BP 123/55; PULSE 75; RESP 16; TEMP 36.1; O2SAT 94
[2024-07-26] MEDS: ACETAMINOPHEN 325 MG TABLET 650 MG PO (23:43)
[2024-07-27 03:00] VITALS: BP 122/61; PULSE 69; RESP 16; TEMP 36.1; O2SAT 94
--- NOTE | 2024-07-27 05:43 | PC.NURSE ---
Shift note: Pt is doing well. Alert and oriented. Vitally stable. No neurological deficit or cardiac abnormalities observed. Doing well on RA. Ambulated wit SBA to and from BR. Had adequate sleep.
[2024-07-27 06:20] LABS: Hematocrit* 23.1 % (37.0-53.0); Mean Corpuscular HGB Conc 34 gm/dL (32-36); Mean Corpuscular Hemoglobin 30 pg (26-34); Mean Corpuscular Volume 87 fL (80-100); Platelet Count* 201 K/uL (140-440); Red Blood Count* 2.67 m/uL (4.30-5.90); White Blood Count* 6.11 K/uL (4.50-11.00)
[2024-07-27 06:23] LABS: Chloride* 96 mmol/L (96-114); Potassium* 4.2 mmol/L (3.6-5.1); Sodium* 127 mmol/L (135-149)
[2024-07-27 06:26] LABS: Anion Gap 6 mEq/L (7-15); Blood Urea Nitrogen* 25 mg/dL (7-30); Carbon Dioxide* 25 mmol/L (20-32); Creatinine* 0.6 mg/dL (0.5-1.5); Est. Creatinine Clearance* 60.59; Estimated Glomerular Filt Rate 101 ml/min; Hemoglobin* 7.9 gm/dL (13.5-17.5); Slide Review Reflex No
[2024-07-27 06:27] LABS: Calcium* 9.2 mg/dL (8.4-10.6); Glucose* 72 mg/dL (60-115); Magnesium* 1.1 mg/dL (1.5-2.6)
[2024-07-27] MEDS: OMEPRAZOLE 20 MG CAPSULE DR 40 MG PO (06:36)
[2024-07-27 07:00] VITALS: BP 102/53; PULSE 65; RESP 18; TEMP 36.4; O2SAT 93; O2SAT 96
[2024-07-27] MEDS: ATORVASTATIN CALCIUM 40 MG TABLET PO (08:56)
[2024-07-27] MEDS: METFORMIN 1,000 MG TABLET 1000 MG PO (08:56)
[2024-07-27] MEDS: POTASSIUM CHLORIDE 10 MEQ CAPSULE ER 20 MEQ PO (08:56)
[2024-07-27] MEDS: METOPROLOL SUCCINATE (XL) 25 MG TAB PO (08:56)
[2024-07-27] MEDS: AMLODIPINE 5 MG TABLET PO (08:56)
[2024-07-27] MEDS: ASPIRIN 81 MG TAB.CHEW PO (08:56)
[2024-07-27] MEDS: TORSEMIDE 5 MG TABLET PO (08:57)
[2024-07-27] MEDS: lisinopriL 20 MG TABLET PO (08:57)
[2024-07-27] MEDS: ESCITALOPRAM 10 MG TABLET PO (08:57)
[2024-07-27] MEDS: MAGNESIUM OXIDE 400 MG TABLET PO (08:57)
[2024-07-27] MEDS: SODIUM CHLORIDE 0.9 % (FLUSH) 10 ML SYRINGE 5 ML IVF (08:57)
[2024-07-27] MEDS: MAGNESIUM IV 2 GM/50 ML PIGGYBACK IVPB (09:03)
[2024-07-27 11:00] VITALS: BP 109/53; PULSE 76; RESP 18; TEMP 36.7; O2SAT 97
--- NOTE | 2024-07-27 12:24 | P.DS_ITS ---
DS: Providers Provider Date Seen: 07/27/24 Date of admission: 07/24/24 12:53 Primary care physician: Jose Linares MD Admitting Clinician: Elgin Mahmood MD Consults: 07/24/24 12:53 Consult to Nutrition [CONS] Routine Comment: Reason for consult:: Miscellaneous Attending Physician on discharge: Dianne Beard MD DS: Diagnosis Discharge Diagnosis (1) Hyponatremia: Status: Acute Problem details: -Na 129 at D/C. -Hx of Recurrent hyponatremia with previous readings in the 110s and 120s. -patient is asymptomatic currently, sodium levels improved w/ Treatment and fluid resection. -sodium on 07/24/2024 is 116 in setting of decreased solute intake for the last 2 weeks and increase free water intake for the last 2 weeks -for the past 2 years serum sodium values have ranged from 130-132 -1200 mL fluid restriction. Normal saline at 125 mL/hour IV x1 L then saline lock. Increase solute and protein intake. Monitor her response. (2) Hypomagnesemia: Status: Chronic Problem details: -on spironolactone and PPI pantoprazole. Hold spironolactone for now. -magnesium replaced, Mg 1.5 at D/C -Cont Mg PO 400 BID (3) Anemia: Status: Chronic Problem details: - patient is asymptomatic, he denied shortness of breath, chest discomfort or lightheadedness on exertion. - Pt has chronic anemia, most likely JEYSON is part of the etiology. - Blood film last admission: The features of the anemia are nonspecific. The differential includes iron deficiency, anemia of chronic disease, anemia of chronic renal insufficiency, anatomic blood loss and medication effect. There is no morphologic evidence of hemolysis. - Retics WNL. 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 The polyp was removed -Recs were to Repeat upper endoscopy in 4 months for surveillance back in 2022, but pt didn't F/U. - Hemoglobin stable at 8.6 before we start giving him IV fluids here. -ordered ferritin, iron panel, patient needs complete workup as an outpatient with his PCP and should consider referral to GI as it seems he was lost to follow-up. - monitor hemoglobin as an outpt w/ PCP, discussed w/ the pt. (4) Alonso esophagus: Status: Chronic Problem details: As above Ob PPI Needs F/up as an outpt (5) Gastritis: Status: Acute Problem details: -per CT scan mid June 2024 -check stool antigen for Helicobacter pylori (6) Medical non-compliance: Status: Acute Problem details: -Patient reports that he is not taking his diuretic daily. He is not taking his magnesium at all. His ex- is concerned that he does not reliably take any of his medications. She tried to help him by setting up a pillbox but he was not using it regularly. (7) Weakness: Status: Resolved Problem details: - Chronic deconditioning and weakness progressively worsening. - Additional contributors include anemia, hyponatremia, hypomagnesemia - PT and OT consultation in-hospital DS: Summary Hospital Course Hospital Course: Sulaiman Trujillo is a 74 year old male who is referred to the [facility] Emergency Department today by his primary care physician at the [facility] for further assessment and intervention of a low serum sodium of 119 and a low serum magnesium of 1.1. Pt has Hx of Recurrent hyponatremia with previous readings in the 110s and 120s. patient is asymptomatic currently, sodium levels improved w/ Treatment. Pt has chronic anemia, most likely JEYSON is part of the etiology. patient is asymptomatic, he denied shortness of breath, chest discomfort or lightheadedness on exertion. 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 The polyp was removed, Recs were to Repeat upper endoscopy in 4 months for surveillance back in 2022, but pt didn't F/U. During this admission, Hemoglobin stable at 8.6 before we start giving him IV fluids here. ordered ferritin, iron panel, patient needs complete workup as an outpatient with his PCP and should consider referral to GI as it seems he was lost to follow-up. monitor hemoglobin as an outpt w/ PCP, discussed w/ the pt. magnesium was replaced during his stay and patient was counseled to be complian medications including his magnesium tabs and to keep his appointment for follow-up with PCP this July 30. Status at Discharge Functional status at discharge: uses cane/walker Overall status at discharge: patient is back to baseline Time Spent with Patient Time attestation: Total time spent providing and/or coordinating discharge services: 55 min Exam Narrative: Exam Narrative: Physical exam GENERAL: Comfortable, no acute distress. HEAD AND NECK: Atraumatic, normocephalic CARDIOVASCULAR: RRR. Normal S1, S2. No murmurs. RESPIRATORY: Clear to auscultation B/L. Good air entry B/L. No wheezes or rhonchi. NEUROLOGY: Alert, awake, oriented X 3. Normal speech. PSYCH: Normal mood, normal affect. Const: Vital Signs, click to edit/add: Vital Signs - 24 hr 07/26/24 15:00 07/26/24 15:00 07/26/24 15:00 Temperature 97.9 F Pulse Rate [Pulse Oximeter] 68 68 Respiratory Rate 16 16 16 Blood Pressure [Le ft Arm] Blood Pressure [Ri ght Arm] 126/56 L Pulse Oximetry 96 95 Oxygen Delivery Me thod Room Air Room Air 07/26/24 15:00 07/26/24 19:00 07/26/24 22:13 Temperature 97.1 F L Pulse Rate [Pulse Oximeter] 72 Respiratory Rate 16 Blood Pressure [Le ft Arm] Blood Pressure [Ri ght Arm] 127/61 Pulse Oximetry 96 93 94 Oxygen Delivery Me thod Room Air 07/26/24 22:13 07/26/24 22:13 07/26/24 22:13 Temperature 97.0 F L Pulse Rate [Pulse Oximeter] 75 75 Respiratory Rate 16 16 16 Blood Pressure [Le ft Arm] Blood Pressure [Ri ght Arm] 123/55 L Pulse Oximetry 94 94 Oxygen Delivery Me thod Room Air Room Air 07/27/24 03:00 07/27/24 07:00 07/27/24 07:00 Temperature 97.0 F L Pulse Rate [Pulse Oximeter] 69 65 Respiratory Rate 16 18 Blood Pressure [Le ft Arm] Blood Pressure [Ri ght Arm] 122/61 Pulse Oximetry 94 96 Oxygen Delivery Me thod Room Air 07/27/24 07:00 07/27/24 07:00 Temperature 97.6 F Pulse Rate [Pulse Oximeter] 65 Respiratory Rate 18 18 Blood Pressure [Le ft Arm] 102/53 L Blood Pressure [Ri t Arm] Pulse Oximetry 93 93 Oxygen Delivery Me thod Room Air Room Air DS: Data Data Completed and Pending Labs on day of discharge: Labs from last 24 hours 07/27/24 07/26/24 05:37 13:48 WBC 6.11 RBC 2.67 L Hgb 7.9 L* Hct 23.1 L MCV 87 MCH 30 MCHC 34 Plt Count 201 Sodium 127 L 123 L* Potassium 4.2 Chloride 96 Carbon Dioxide 25 Anion Gap 6 L BUN 25 Creatinine 0.6 Estimated Creat Clear 60.59 Estimated GFR 101 Glucose 72 Calcium 9.2 Magnesium 1.1 L Discharge Plan Discharge Disposition: Home w/ Parent or Adult Date of Admission: 07/24/24 12:53 Attending Provider on Discharge: Dianne Beard Primary Care Provider: Jose Linares Condition: Improved Anticipated Discharge Date/Time: 07/27/24 13:22 Discharge Medications: Continued atorvastatin 40 mg tablet 40 mg PO DAILY citalopram 10 mg tablet 10 mg PO DAILY metformin 1,000 mg tablet 1,000 mg PO BIDWM Patient Comments: pantoprazole 40 mg tablet,delayed release (DR/EC) 40 mg PO DAILY cholecalciferol (vitamin D3) 25 mcg (1,000 unit) tablet 1,000 unit PO DAILY lisinopril 10 mg tablet 20 mg PO DAILY torsemide 5 mg Tablet 5 mg PO DAILY Qty: 30 0RF aspirin [Children's Aspirin] 81 mg Tablet,Chewable 81 mg PO DAILY Qty: 30 0RF amlodipine 5 mg tablet 5 mg PO DAILY spironolactone 25 mg tablet 25 mg PO DAILY magnesium oxide 400 mg (241.3 mg magnesium) Tablet 400 mg PO BID Qty: 60 0RF metoprolol succinate 25 mg Tablet Extended Release 24 Hr 25 mg PO DAILY Qty: 30 0RF potassium chloride 10 mEq Capsule, Extended Release 20 meq PO DAILYWM Qty: 60 0RF Discharge Orders: Discharge Order (Routine); Ordered 07/27/24 Ordered By: Dianne Beard Patient Education: Alonso Esophagus (GEN) Activity Level: Activity as Tolerated Discharge Diet: Diabetic, Heart Healthy (2 gm sodium, low fat) and 1500 ml Fluid Restriction Follow Up Appointments: Jose Linares MD [Primary Care Provider] - Forms: [employer] Info Instructions
[2024-07-27 12:44] LABS: Hemoglobin* 8.4 gm/dL (13.5-17.5)
[2024-07-27 12:50] LABS: Sodium* 129 mmol/L (135-149)
[2024-07-27 12:54] LABS: Magnesium* 1.5 mg/dL (1.5-2.6)
[2024-07-27 13:13] LABS: Iron* 34 ug/dL (49-181)
[2024-07-27 13:22] LABS: Percent Iron Saturation 11 % (20-50); Total Iron Binding Capacity 314 ug/dL (261-462)
[2024-07-27 13:29] LABS: Ferritin* 8.1 ng/mL (17.9-464.0)
--- NOTE | 2024-07-27 15:02 | PC.NURSE ---
Shift Note: Pt friendly and cooperative. VS WNL and LS COA. Pt denies pain or discomfort. Ambulated hallways with SBA, pt denied SOB with exertion. He was discharged to home via wheelchair in the care of a female family member at 1500. Pt and family verbalized understanding of discharge instructions and follow up appointments.
== END 2024-07-27 15:00 | disposition home or self-care (01) | DRG 641 ==
LOC: ED 11:46 → MEDSURG 12:16
PROVIDERS: Family Medicine; Student in an Organized Health Care Education/Training Program; Admitting Provider Internal Medicine; Emergency Provider Emergency Medicine; PCP Family Medicine; Visit Provider Internal Medicine
DX: E87.1 Hypo-osmolality and hyponatremia (principal); I50.30 Unspecified diastolic (congestive) heart failure; E83.42 Hypomagnesemia; K29.70 Gastritis, unspecified, without bleeding; D64.9 Anemia, unspecified; K22.70 Barrett's esophagus without dysplasia; R53.1 Weakness; Z91.148 Patient's other noncompliance with medication regimen for other reason; Z96.641 Presence of right artificial hip joint; E78.5 Hyperlipidemia, unspecified; E11.69 Type 2 diabetes mellitus with other specified complication; Z79.84 Long term (current) use of oral hypoglycemic drugs; Z90.49 Acquired absence of other specified parts of digestive tract; I11.0 Hypertensive heart disease with heart failure; I25.10 Atherosclerotic heart disease of native coronary artery without angina pectoris
CPT/HCPCS: 36415; 80048; 80053; 82077; 82728; 82962; 83540; 83550; 83605; 83690; 83735; 84100; 84295; 84443; 85018; 85025; 85027; 85045; 86140; 87338; 93005; 99284; 99285; A9270; J2470; J3475; J7030; J7131

== ENCOUNTER 2024-08-01 12:50 | Outpatient (CLI) | payer MEDICARE, SELFPAY | END 2024-08-01 12:51 | disposition home or self-care (01) | LOC: AMB 08-04 09:00 | PROVIDERS: PCP Family Medicine; Visit Provider Internal Medicine | DX: R53.1 Weakness (principal); K92.1 Melena; R10.9 Unspecified abdominal pain | CPT/HCPCS: A0425; A0433 ==

== ENCOUNTER 2024-08-01 13:22 | Inpatient (IN) | payer MEDICARE, SELFPAY ==
[2024-08-01] VITALS (30 sets, daily range): BP systolic 90–123; BP diastolic 36–65; PULSE 52–106; RESP 12–21; TEMP 36.7–37.7; O2SAT 91–97; BMI 38.3
--- OUTSIDE RECORDS SUMMARY | 2024-08-01 13:25 | XMS_ITS | Data Portability ---
Author Organization [facility], [facility] Address [address] [place] [address] Care Team Providers Care Brand Communications Manager Name Role Phone PAVELTEJANE Salvador Primary Care Provider Assessment No assessment recorded. Plan of Treatment Reminders Order Date Submit Date Provider Last Modified By Organization Details Last Modified Time Details Appointments None recorded. Lab urinalysis, dipstick 2022 023 [facility], [address], [place] [address], [place], [address], 3 16:30:11 urinalysis, microscopic 2022 023 [facility], [address], [address], [place], [address], 4 05:01:40 urinalysis, dipstick 2022 023 [facility], [address], [address], [place], [address], 3 12:40:06 urinalysis, dipstick 2022 023 [facility], [address], [address], [place], [address], 3 11:00:44 culture, urine 2021 022 [facility], [address], [address], [place], [address], 3 12:21:53 urinalysis, dipstick 2021 022 [facility], [address], [address], [place], [address], 2 11:50:43 Referral None recorded. Procedures None recorded. Surgeries transurethr al resection of prostate (SURG) 2021 [email or web address] [place] [address], [address], [place], [address], 3 09:58:26 Imaging None recorded. Medication Orders None recorded. Patient TargetsNo targets recorded. Patient Instructions Encounter Date Encounter Id Patient Instructions Last Modified By Organization Details Last Modified Time 03/16/2022 [id number] BPH/weak stream: Discussed options including adding finasteride [...] were answered. Not available 03/16/2022 15:50:47 06/08/2022 [id number] BPH/weak stream: He's doing well. He is having some urgency and frequency which are slowly improving. His force of stream is much improved. I'll see him back in 3 months. Not available 06/08/2022 10:53:24 09/06/2022 [id number] BPH/weak stream: He's doing well with his [...] PSA prior. Not available 09/06/2022 12:34:06 03/14/2023 [id number] BPH/weak stream: He's voiding well since the [...] S+ color -advantus YELLOW yellow Not Available [facility] [address] [facility] [address], [place], [address], 04/28/2022 11:50:43 04/28/20 22 04/28/2022 UA DIP CS STATU S+ appearance -advantus CLEAR clear Not Available [facility] [address] [facility] [address], [place], [address], 04/28/2022 11:50:43 04/28/20 22 04/28/2022 UA DIP CS STATU S+ glucose -advantus NEGATI VE mg/dL negati ve Not Available [facility] [address] [facility] [address], [place], [address], 04/28/2022 11:50:43 04/28/20 22 04/28/2022 UA DIP CS STATU S+ bilirubin -advantus NEGATI VE negati ve Not Available [facility] [address] [facility] [address], [place], [address], 04/28/2022 11:50:43 04/28/20 22 04/28/2022 UA DIP CS STATU S+ ketones -advantus NEGATI VE mg/dL negati ve Not Available [facility] [address] [place] [address] [address], [place], [address], 04/28/2022 11:50:43 04/28/20 22 04/28/2022 UA DIP CS STATU S+ sp. gravity -advantus 1.020 1.010- 1.025 Not Available [facility] [address] [place] [address], [place], [address], 04/28/2022 11:50:43 04/28/20 22 04/28/2022 UA DIP CS STATU S+ pH -advantus 7.0 5.0-8. 0 Not Available [facility] [address] [place] [address], [place], [address], 04/28/2022 11:50:43 04/28/20 22 04/28/2022 UA DIP CS STATU S+ protein -advantus 100 MG/DL mg/dL negati ve abnormal Not Available [facility] [address] [place] [address] [address], [place], [address], 04/28/2022 11:50:43 04/28/20 22 04/28/2022 UA DIP CS STATU S+ urobilinogen -advantus 0.2 E.U./D L 0.2 E.U./d L Not Available [facility] [address] [facility] [address], [place], [address], 04/28/2022 11:50:43 04/28/20 22 04/28/2022 UA DIP CS STATU S+ nitrites -advantus NEGATI VE negati ve Not Available [facility] [address] [facility] [address], [place], [address], 04/28/2022 11:50:43 04/28/20 22 04/28/2022 UA DIP CS STATU S+ blood -advantus NEGATI VE negati ve Not Available [facility] [address] [place] [address] [address], [place], [address], 04/28/2022 11:50:43 04/28/20 22 04/28/2022 UA DIP CS STATU S+ leukocytes -advantus NEGATI VE negati ve Not Available [facility] [address] [place] [address] [address], [place], [address], 04/28/2022 11:50:43 04/28/20 22 04/28/2022 UA DIP CS STATU S+ performed by BRITTNEE Smith Not Available [facility] [address] [place] [address] [address], [place], [address], 04/28/2022 11:50:43 04/28/20 22 04/28/2022 UA DIP [...] for provi arash revie w. Not Available [facility] [address] [facility] [address], [place], [address], 04/28/2022 11:50:43 04/28/20 22 04/28/2022 URINE CULTU RE final report MICROB IOLOGY RESULT S abnormal SOURC E Void KNOWN ALLER GIES nkda TREAT MENT none MEDIA PLATE D AT: Media plate d on 04/28 @ 12:51 PM COLON Y COUNT 20,00 0-50, 000 cfu/m l RESUL T Enter ococc us miracle narum (Isol ate 1) Sensi tivit y Shanta sis [place] te 1 ----- ----- ----- ----- ----- [...] s Des[facility]. S= Susce [...] for provi arash revie w. Not Available [facility] [address] [place] [address] [address], [place], [address], 04/30/2022 12:21:53 06/08/19 23 06/08/2022 UA DIP CS STATU S color -advantus STRAW yellow Not Available [facility] [address] [place] [address] [address], [place], [address], 06/08/2022 11:00:44 06/08/19 23 06/08/2022 UA DIP CS STATU S appearance -advantus CLEAR clear Not Available [facility] [address] [facility] [address], [place], [address], 06/08/2022 11:00:44 06/08/19 23 06/08/2022 UA DIP CS STATU S glucose -advantus NEGATI VE mg/dL negati ve Not Available [facility] [address] [place] [address] [address], [place], [address], 06/08/2022 11:00:44 06/08/19 23 06/08/2022 UA DIP CS STATU S bilirubin -advantus NEGATI VE negati ve Not Available [facility] [address] [place] [address] [address], [place], [address], 06/08/2022 11:00:44 06/08/19 23 06/08/2022 UA DIP CS STATU S ketones -advantus NEGATI VE mg/dL negati ve Not Available [facility] [address] [place] [address] [address], [place], [address], 06/08/2022 11:00:44 06/08/19 23 06/08/2022 UA DIP CS STATU S sp. gravity -advantus >=1.03 0 1.010- 1.025 Not Available [facility] [address] [facility] [address], [place], [address], 06/08/2022 11:00:44 06/08/19 23 06/08/2022 UA DIP CS STATU S pH -advantus 6.0 5.0-8. 0 Not Available [facility] [address] [facility] [address], [place], [address], 06/08/2022 11:00:44 06/08/19 23 06/08/2022 UA DIP CS STATU S protein -advantus >=300 mg/dL negati ve abnormal Not Available [facility] [address] [place] [address], [place], [address], 06/08/2022 11:00:44 06/08/19 23 06/08/2022 UA DIP CS STATU S urobilinogen -advantus 0.2 0.2 E.U./d L Not Available [facility] [address] [place] [address] [address], [place], [address], 06/08/2022 11:00:44 06/08/19 23 06/08/2022 UA DIP CS STATU S nitrites -advantus NEGATI VE negati ve Not Available [facility] [address] [facility] [address], [place], [address], 06/08/2022 11:00:44 06/08/19 23 06/08/2022 UA DIP CS STATU S blood -advantus LARGE negati ve abnormal Not Available [facility] [address] [place] [address] [address], [place], [address], 06/08/2022 11:00:44 06/08/19 23 06/08/2022 UA DIP CS STATU S leukocytes -advantus SMALL negati ve abnormal Not Available [facility] [address] [facility] [address], [place], [address], 06/08/2022 11:00:44 06/08/19 23 06/08/2022 UA DIP CS STATU S performed by ARIN Penn Not Available [facility] [address] [facility] [address], [place], [address], 06/08/2022 11:00:44 06/08/19 23 06/08/2022 UA DIP [...] for provi arash revie w. Not Available [facility] [address] [facility] [address], [place], [address], 06/08/2022 11:00:44 06/08/19 23 06/08/2022 UA MICRO SCOPI C U-WBC 50 - 100 [hpf] 0 - 2 abnormal Not Available [facility] [address] [facility] [address], [place], [address], 06/08/2022 11:00:47 06/08/19 23 06/08/2022 UA MICRO SCOPI C U-RBC 50 - 100 [hpf] 0 - 2 abnormal Not Available [facility] [address] [facility] [address], [place], [address], 06/08/2022 11:00:47 06/08/19 23 06/08/2022 UA MICRO SCOPI C bacteria Modera te [hpf] negati ve abnormal Not Available [facility] [address] [facility] [address], [place], [address], 06/08/2022 11:00:47 06/08/19 23 06/08/2022 UA MICRO [...] for provi arash revie w. Not Available [facility] [address] [facility] [address], [place], [address], 06/08/2022 11:00:47 06/08/19 23 06/08/2022 URINE CULTU [...] for provi arash revie w. Not Available [facility] [address] [facility] [address], [place], [address], 06/10/2022 13:41:16 09/07/19 23 09/06/2022 UA WITHO UT MICRO - CS URISC AN blood - uriscan NEGATI VE negati ve Not Available [facility] [address] [place] [address] [address], [place], [address], 09/06/2022 12:40:06 09/07/19 23 09/06/2022 UA WITHO UT MICRO - CS URISC AN bilirubin - uriscan NEGATI VE mg/dL negati ve Not Available [facility] [address] [place] [address] [address], [place], [address], 09/06/2022 12:40:06 09/07/19 23 09/06/2022 UA WITHO UT MICRO - CS URISC AN urobilinogen - uriscan NORMAL mg/dL normal Not Available [facility] [address] [facility] [address], [place], [address], 09/06/2022 12:40:06 09/07/19 23 09/06/2022 UA WITHO UT MICRO - CS URISC AN ketones - uriscan NEGATI VE mg/dL negati ve Not Available [facility] [address] [place] [address] [address], [place], [address], 09/06/2022 12:40:06 09/07/19 23 09/06/2022 UA WITHO UT MICRO - CS URISC AN protein - uriscan 100 mg/dL negati ve abnormal Not Available [facility] [address] [place] [address] [address], [place], [address], 09/06/2022 12:40:06 09/07/19 23 09/06/2022 UA WITHO UT MICRO - CS URISC AN nitrites - uriscan NEGATI VE negati ve Not Available [facility] [address] [place] [address] [address], [place], [address], 09/06/2022 12:40:06 09/07/19 23 09/06/2022 UA WITHO UT MICRO - CS URISC AN glucose - uriscan NEGATI VE mg/dL negati ve Not Available [facility] [address] [place] [address] [address], [place], [address], 09/06/2022 12:40:06 09/07/19 23 09/06/2022 UA WITHO UT MICRO - CS URISC AN pH - uriscan 6.50 5.00-9 .00 Not Available [facility] [address] [place] [address] [address], [place], [address], 09/06/2022 12:40:06 09/07/19 23 09/06/2022 UA WITHO UT MICRO - CS URISC AN sp. gravity - uriscan 1.03 1.01-1 .03 Not Available [facility] [address] [place] [address] [address], [place], [address], 09/06/2022 12:40:06 09/07/19 23 09/06/2022 UA WITHO UT MICRO - CS URISC AN leukocytes - uriscan NEGATI VE negati ve Not Available [facility] [address] [place] [address] [address], [place], [address], 09/06/2022 12:40:06 09/07/19 23 09/06/2022 UA WITHO UT MICRO - CS URISC AN color - uriscan YELLOW lt. yellow ;yello w Not Available [facility] [address] [place] [address] [address], [place], [address], 09/06/2022 12:40:06 09/07/19 23 09/06/2022 UA WITHO UT MICRO - CS URISC AN clarity - uriscan CLEAR clear Not Available [facility] [address] [place] [address] [address], [place], [address], 09/06/2022 12:40:06 09/07/19 23 09/06/2022 UA WITHO [...] for provi arash revie w. Not Available [facility] [address] [facility] [address], [place], [address], 09/06/2022 12:40:06 03/14/20 23 03/14/2023 UA WITHO UT MICRO - CS URISC AN blood - uriscan NEGATI VE negati ve Not Available [facility] [address] [facility] [address], [place], [address], 03/14/2023 16:30:11 03/14/20 23 03/14/2023 UA WITHO UT MICRO - CS URISC AN bilirubin - uriscan NEGATI VE mg/dL negati ve Not Available [facility] [address] [place] [address] [address], [place], [address], 03/14/2023 16:30:11 03/14/20 23 03/14/2023 UA WITHO UT MICRO - CS URISC AN urobilinogen - uriscan NORMAL mg/dL normal Not Available [facility] [address] [place] [address] [address], [place], [address], 03/14/2023 16:30:11 03/14/20 23 03/14/2023 UA WITHO UT MICRO - CS URISC AN ketones - uriscan NEGATI VE mg/dL negati ve Not Available [facility] [address] [place] [address] [address], [place], [address], 03/14/2023 16:30:11 03/14/20 23 03/14/2023 UA WITHO UT MICRO - CS URISC AN protein - uriscan 10 mg/dL negati ve abnormal Not Available [facility] [address] [place] [address] [address], [place], [address], 03/14/2023 16:30:11 03/14/20 23 03/14/2023 UA WITHO UT MICRO - CS URISC AN nitrites - uriscan NEGATI VE negati ve Not Available [facility] [address] [place] [address] [address], [place], [address], 03/14/2023 16:30:11 03/14/20 23 03/14/2023 UA WITHO UT MICRO - CS URISC AN glucose - uriscan NEGATI VE mg/dL negati ve Not Available [facility] [address] [place] [address] [address], [place], [address], 03/14/2023 16:30:11 03/14/20 23 03/14/2023 UA WITHO UT MICRO - CS URISC AN pH - uriscan 7.50 5.00-9 .00 Not Available [facility] [address] [place] [address] [address], [place], [address], 03/14/2023 16:30:11 03/14/20 23 03/14/2023 UA WITHO UT MICRO - CS URISC AN sp. gravity - uriscan <=1.01 1.01-1 .03 Not Available [facility] [address] [place] [address] [address], [place], [address], 03/14/2023 16:30:11 03/14/20 23 03/14/2023 UA WITHO UT MICRO - CS URISC AN leukocytes - uriscan NEGATI VE negati ve Not Available [facility] [address] [place] [address] [address], [place], [address], 03/14/2023 16:30:11 03/14/20 23 03/14/2023 UA WITHO UT MICRO - CS URISC AN color - uriscan YELLOW lt. yellow ;yello w Not Available [facility] [address] [place] [address], [place], [address], 03/14/2023 16:30:11 03/14/20 23 03/14/2023 UA WITHO UT MICRO - CS URISC AN clarity - uriscan CLEAR clear Not Available [facility] [address] [place] [address] [address], [place], [address], 03/14/2023 16:30:11 03/14/20 23 03/14/2023 UA WITHO [...] for provi arash revie w. Not Available [facility] [address] [place] [address] [address], [place], [address], 03/14/2023 16:30:11 Result Notes None recorded. Problems Name Problem SNOMED Code Status Onset Date Resolution Date Notes Provider Name and Address Organization Details Recorded Time Lower urinary tract symptoms due to benign prostatic hypertrophy 3086166402809 1 Active 2021 Lencho Walsh MD [address] [place] [address],[address] [place] [address], [phone], [facility] 15:39:41 Slowing of urinary stream 55219572 Active 2021 Lencho Walsh MD [address] [place] [address],[address] [place] [address], [phone], [facility] 2 15:39:42 Problem Notes None recorded. Procedures Surgical History Date Name Laterality Status Provider Name and Address Organization Details Recorded Time 023 Bladder Scan completed Nettie Mattson [facility] 03/14/2023 16:08:50 023 Bladder Scan completed Steven Kaur [facility] 09/06/2022 12:20:05 023 Bladder Scan completed Reina Silva [facility] 06/08/2022 10:49:12 Urine Culture completed Yuko Aguilareve [facility] 04/28/2022 11:40:57 Urinalysis completed Yuko Diana [facility] 04/28/2022 11:40:55 Diagnostic sigmoidoscopy completed Not Available Health Note 06/04/2022 16:15:21 Cystoscopy- male completed Lencho Walsh MD [address] [facility], [place], [address], [facility] 03/16/2022 15:39:19 022 Bladder Scan completed Nora Ferraro [facility] 03/16/2022 15:22:50 Bladder Scan completed Latha Stratton [facility] 02/14/2022 14:24:[address] colonography [...] Updated DateTime 03/16/2022 172.72 cm Nora Ferraro [facility] 03/16/2022 15:13:18 Date Recorded Body height Body weight Body mass index (BMI) Provider Name and Address Organization Details Last Updated DateTime 06/08/2022 172.72 cm 099895.4401 25107 g 44.1 kg/m2 Not Available Health Note 06/08/2022 10:23:29 Date Recorded Body weight Body mass index (BMI) Body height Provider Name and Address Organization Details Last Updated DateTime 09/06/2022 729794.3410 01245 g 44.3 kg/m2 170.18 cm Not Available Health Note 09/06/2022 11:49:21 Date Recorded Body height Body mass index (BMI) Body weight Provider Name and Address Organization Details Last Updated DateTime 03/14/2023 170.18 cm 44.3 kg/m2 123795.64 g Nettie Mattson [facility] 03/14/2023 15:59:50 Social History Question [...] Has Tobacco Cessation Counseling Been Provided? No [email or web address] Information not available 06/08/2022 How Many Years Have You Smoked Tobacco? 32 [email or web address] Information not available 03/13/2023 Do You Or Have You Ever Used Any Other Forms Of Tobacco Or Nicotine? No [email or web address] Information not available 03/14/2023 How Many Days In The Past Year Have You Consumed 5 Or More Drinks? 0 [email or web address] Information no t available 03/13/2023 Sex: Unknown Functional Status None recorded. Mental Status None recorded. Family History Relationship Description Onset Age of this Age Resolved Age Notes LastModified by Organization Details LastModified Time Father Family history of cancer of colon [email or web address] Not available 02/14 14:01:42 Mother Family history of Hypertension [email or web address] Not available 14:01:52 Medical History Condition Response [...] high-dose, trivalent, PF 6 completed MARIELOS Linares [facility] 03/16/2022 15:13:26 Influenza, split virus, trivalent, preservative 9 completed Nora santoyo, [facility] 03/16/2022 15:13:26 pneumococcal polysaccharide PPV23 7 completed Nora santoyo, [facility] 03/16/2022 15:13:26 Influenza, high-dose, trivalent, PF 5 completed Nora santoyo, [facility] 03/16/2022 15:13:26 Influenza, adjuvanted, trivalent, PF 8 completed Nora santoyo, [facility] 03/16/2022 15:13:26 zoster live 2 completed Nora santoyo, [facility] 03/16/2022 15:13:26 Influenza, split virus, trivalent, preservative 1 completed Nora santoyo, [facility] 03/16/2022 15:13:26 COVID-19, mRNA, LNP-S, PF, 100 mcg/0.5mL dose or 50 mcg/0.25mL dose 2 completed Nora santoyo, [facility] 03/16/2022 15:13:26 Novel [id number], all formulations 9 completed Nora santoyo, [facility] 03/16/2022 15:13:26 Influenza, split virus, trivalent, preservative 3 completed Nora santoyo, [facility] 03/16/2022 15:13:26 Influenza, split virus, trivalent, preservative 8 completed Nora santoyo, [facility] 03/16/2022 15:13:26 Influenza, split virus, trivalent, preservative 7 completed Nora santoyo, [facility] 03/16/2022 15:13:26 Tdap 7 completed Nora santoyo, [facility] 03/16/2022 15:13:26 influenza, unspecified formulation 7 completed Nora santoyo, [facility] 03/16/2022 15:13:26 COVID-19, mRNA, LNP-S, PF, 100 mcg/0.5mL dose or 50 mcg/0.25mL dose 1 completed Nora santoyo, [facility] 03/16/2022 15:13:26 COVID-19, mRNA, LNP-S, bivalent, PF, 50 mcg/0.5 mL or 25mcg/0.25 mL dose 2 completed Nora santoyo, [facility] 03/16/2022 15:13:26 pneumococcal polysaccharide PPV23 8 completed Nora santoyo, [facility] 03/16/2022 15:13:26 COVID-19, mRNA, LNP-S, PF, 100 mcg/0.5mL dose or 50 mcg/0.25mL dose 1 completed Nora santoyo, [facility] 03/16/2022 15:13:26 Influenza, split virus, trivalent, preservative 2 completed Nora santoyo, [facility] 03/16/2022 15:13:26 Influenza, adjuvanted, quadrivalent, PF 2 completed Nora santoyo, [facility] 03/16/2022 15:13:26 Influenza, high-dose, quadrivalent, PF 1 completed Nora santoyo, [facility] 03/16/2022 15:13:26 Influenza, high-dose, trivalent, PF 8 completed [facility] 03/16/[facility] 15:13:26 Influenza, adjuvanted, trivalent, PF 0 completed Nora santoyo, [facility] 03/16/2022 15:13:26 Td (adult), 2 Lf tetanus toxoid, preservative free, adsorbed 7 completed Nora santoyo, [facility] 03/16/2022 15:13:26 Pneumococcal conjugate PCV 13 [facility] 15:13:26 Influenza, adjuvanted, trivalent, PF 9 [facility] 15:13:27 COVID-19, mRNA, LNP-S, PF, 100 mcg/0.5mL dose or 50 mcg/0.25mL dose 1 [facility] 15:13:27 Influenza, high-dose, trivalent, PF 7 completed Nora Ferraro null, [facility] 03/16/2022 15:13:27 Influenza, split virus, trivalent, preservative 0 completed Nora santoyo, [facility] 03/16/2022 15:13:27 Influenza, split virus, trivalent, preservative 6 [facility] 15:13:27 SARS-COV-2 (COVID-19) vaccine, UNSPECIFIED 2 completed [facility] Available [facility] 06/08/2022 10:23:54 influenza, unspecified formulation 2 completed [facility] Available [facility] 06/08/2022 10:23:54 pneumococcal, unspecified formulation 0 completed [facility] Available [facility] 06/08/2022 10:23:54 influenza, unspecified formulation 2 completed [...] SNOMED-CT Code Diagnosis ICD10 Code Diagnosis Note [id number] [facility] [address] 02/14/2022 13:32:03 02/14/2022 15:18:20 Lower urinary tract symptoms due to benign prostatic hypertrophy [id number] 9101 N40.1 Kidney stone [id number] N2 0.0 [id number] [facility] [address] [address] 03/16/2022 15:08:18 03/16/2022 15:53:06 Lower urinary tract symptoms due to benign prostatic hypertrophy [id number] 9101 N40.1 Slowing of urinary stream [id number] R39.12 [id number] Yuko Ortiz [address] [address] 04/28/2022 11:23:48 04/28/2022 12:09:09 Lower urinary tract symptoms due to benign prostatic hypertrophy [id number] 9101 N40.1 [id number] MD Curt SommerAmado [address] [phone] 06/08/2022 10:20:51 06/08/2022 11:55:56 Lower urinary tract symptoms due to benign prostatic hypertrophy [id number] 9101 N40.1 Slowing of urinary stream [id number] R39.12 [id number] MD Susanna Sommer [address] [place] [phone] 09/06/2022 11:48:25 09/06/2022 12:45:34 Lower urinary tract symptoms due to benign prostatic hypertrophy [id number] 9101 N40.1 Slowing of urinary stream [id number] R39.12 [id number] MD Susanna Sommer [address] [place] [phone] 03/14/2023 15:56:05 03/14/2023 16:19:52 Lower urinary tract symptoms due to benign prostatic hypertrophy [id number] 9101 N40.1 Slowing of urinary stream [id number] R39.12 Health Concerns Section Related Observation LastModified by Organization Detai ls LastModified Time None Recorded Concern Status LastModified by Organization Details LastModified Time None Recorded Advance Directives Directive None Recorded Payers Encounter Date Sequence Insurance Name Policy Number Policy Zaragoza Covered Member ID Zaragoza Member ID Guarantor Name 03/16/2022 1 [place] [id number] Sulaiman Mendiola Aldahl [id number] Sulaiman Mendiola Aldahl 04/28/2022 1 [place] [id number] Sulaiman Mendiola Aldahl [id number] Sulaiman Mendiola Aldahl 06/08/2022 1 [place] [id number] Sulaiman Mendiola Aldahl [id number] Sulaiman Mendiola Aldahl 09/06/2022 1 [place] [id number] Sulaiman Torresahl [id number] Sulaiman Mendiola Aldahl 03/14/2023 1 [place] [id number] Sulaiman Torresahl [id number] Sulaiman Mendiola Aldahl Notes Date Note Type Note Provider Name and Address Organization Details Recorded Time 03/16/2022 text/html Per visit with RICO Kruger om on 02/14/22:Patient is a 72-year-old male that presents today for UTI, BPH, kidney stones. Patient had a hospitalization at [facility] from 01/10-01/12. Patient was thought [...] was last seen by Dr. Adam at [facility] in 2017, has not followed up [...] any blood thinners anymore. Lencho Walsh MD [address] [place] [address],[address], [place], [address] 03/16/2022 15:52:09 06/08/2022 text/html Per visit with RICO Kruger om on 02/14/22:Patient is a 72-year-old male that presents today for UTI, BPH, kidney stones. Patient had a hospitalization at [facility] from 01/10-01/12. Patient was thought [...] was last seen by Dr. Adam at [facility] in 2016, has not followed up [...] but that's improving. Lencho Walsh MD [address] [facility],[address], [place], [address], [facility] 06/08/2022 10:54:16 09/06/2022 text/html Per visit with RICO Kruger om on 02/14/22:Patient is a 72-year-old male that presents today for UTI, BPH, kidney stones. Patient had a hospitalization at [facility] from 01/10-01/12. Patient was thought [...] was last seen by Dr. Adam at [facility] in 2016, has not followed up [...] takes a diuretic. Lencho Walsh MD [address] [facility],[address], [place], [address], [facility] 09/06/2022 12:34:28 03/14/2023 text/html Per visit with RICO Kruger om on 02/14/22:Patient is a 72-year-old male that presents today for UTI, BPH, kidney stones. Patient had a hospitalization at [facility] from 01/10-01/12. Patient was thought [...] was last seen by Dr. Adam at [facility] in 2016, has not followed up [...] takes his torsemide. Lencho Walsh MD [address] [facility],[address], [place], [address], [facility] 03/14/2023 16:16:48
--- OUTSIDE RECORDS SUMMARY | 2024-08-01 13:25 | XMS_ITS | Clinical Summary ---
Author Organization [facility] Address [address] [place] [address]. [place] [address] Care Team Providers Care Cable Respooler Name Role Phone Milagros Jose Veloz Primary Care Provider [phone] Allergies Active Allergy Reactions Criticality Noted Date [...] on file Legal Sex Male 5:05 AM FUEL ATTENDANT Gender Identity Not on file Sexual Orientation Not on file Last Filed Vital Signs Vital Sign Reading Time Taken Comments Blood Pressure 130/60 05/13/2022 3:23 PM FUEL ATTENDANT Pulse 76 05/13/2022 3:23 PM FUEL ATTENDANT Temperature 37.2 C (98.9 F) 05/13/2022 3:23 PM FUEL ATTENDANT Respiratory Rate 18 05/13/2022 3:23 PM FUEL ATTENDANT Oxygen Saturation 91% 05/13/2022 3:23 PM FUEL ATTENDANT Inhaled Oxygen Concentration - - Weight 132.3 kg (291 lb 11.2 oz) 05/09/2022 5:50 AM FUEL ATTENDANT scale Height 167.6 cm (5' 6) 05/09/2022 5:50 AM FUEL ATTENDANT s tated Body Mass Index 47.08 05/09/2022 5:50 AM FUEL ATTENDANT Plan of Treatment Health Maintenance Due Date [...] GLUCOSE BY METER Routine 05/13/2022 7:57 AM FUEL ATTENDANT from Last 3 Months or Most Recently Relevant to Health Maintenance Results * (ABNORMAL) Glucose by meter (05/13/2022 7:57 AM FUEL ATTENDANT) GLUCOSE BY METER POCT 111(H) 70 - 99 mg/dL 05/13/2022 8:05 AM FUEL ATTENDANT [facility] POCT RESULTS Blood, Capillary BLOOD SPECIMEN / Unknown 05/13/2022 7:57 AM FUEL ATTENDANT 05/13/2022 8:05 AM FUEL ATTENDANT us Lencho Walsh MD LAB - BEAKER POCT Final Re sult [facility] POCT RESULTS [address] [place] [address] from Last 3 Months or Most Recently Relevant to Health Maintenance Insurance MEDICARE [facility] [employer] Advance Directives For more information, please contact: [phone] * Full Code (Latest Code Status on [...] 9:17 PM 02/06/2016 1:05 PM Care Teams Cable Respooler Relationship Specialty Start Date End Date Jose Linares: [phone] PCP - General Family Practice 02/02/16
--- OUTSIDE RECORDS SUMMARY | 2024-08-01 13:25 | XMS_ITS | Clinical Summary ---
Author Organization [employer] [facility] Address [facility] [place] [address] Care Team Providers Care Bat Carrier Name Role Phone VoteJose castillo MD Primary Care Provider + [facility], [place] Unavailable [phone] Micki Mckenzie BINDER SORTER Unavailable [facility], [place] Unavailable Allergies Active Allergy Reactions Criticality Noted Date Comments Nsaids (Non-Steroidal Anti-Inflammatory Drug) Other - Describe In Comment Field 04/14/2011 Patient had bariatric surgery. Should not take oral NSAID's ever. Medications acetaminophen (TYLENOL EXTRA STRGTH) 500 mg tablet Take 1,000 mg by mouth every 6 hours if needed. Max acetaminophen dose: 4000mg in 24 hrs. Active cholecalciferol (VITAMIN D3) 1,000 unit tablet Take 1,000 Units by mouth once daily. Active lancets (ACCU-CHEK FASTCLIX LANCING DEV)Indications: Diabetes mellitus without complication (HC) Test 3 times per day. 102 Each 6 06/10/19 19 Active blood sugar diagnostic (True Metrix Glucose Test Strip) stripIndications :Diabetes mellitus type 2, insulin dependent (HC) Dispense item covered by pt ins. E11.9 IDDM type II - Test 2 times/day. 300 Each 3 10/20/19 21 Active aspirin chewable 81 mg chewable tabletIndication s:Coronary artery disease, unspecified vessel or lesion type, unspecified whether angina present, unspecified whether mcgrath or transplanted heart Chew 1 Tablet (81 mg) by mouth once daily with a meal. 0 11/03/19 23 Active atorvastatin (LIPITOR) 40 mg tabletIndication s:ASHD (arterioscleroti c heart disease) Take 1 Tablet (40 mg) by mouth once daily. 90 Tablet 3 05/16/19 24 Active metFORMIN (GLUCOPHAGE) 1,000 mg tabletIndication s:Diabetes mellitus without complication (HC) TAKE ONE TABLET (1000MG) TWICE DAILY WITH MEALS 180 Tablet 3 05/16/19 24 Active Simethicone (Gas-X) 125 mg capsuleIndicatio ns:Chronic GERD Take 1 Capsule (125 mg) by mouth 4 times daily if needed for Flatulence. Max dose: 500 mg per 24 hrs 06/08/19 24 Active torsemide (DEMADEX) 5 mg tabletIndication s:HTN (hypertension) Take 1 Tablet (5 mg) by mouth once daily. 90 Tablet 3 12/13/19 24 Active pantoprazole (PROTONIX) 40 mg delayed-release tabletIndication s:Chronic GERD TAKE ONE TABLET BY MOUTH ONE TIME DAILY 90 Tablet 2 04/18/20 24 Active citalopram (CELEXA) 10 mg tabletIndication s:Depression, recurrent Take 1 Tablet (10 mg) by mouth every morning. 90 Tablet 1 06/27/19 25 Active magnesium oxide 400 mg tablet Take by mouth. 07/13/19 25 Active potassium chloride 10 mEq Controlled-relea se capsule Take by mouth. 07/13/19 25 Active metoprolol succinate 25 mg Sustained-Releas e tablet Take 25 mg by mouth once daily. Active lisinopriL 10 mg tabletIndication s:Essential hypertension Take 1 Tablet (10 mg) by mouth once daily. 90 Tablet 3 07/31/19 25 Active blood-glucose meterIndications :Type 2 diabetes mellitus with stage 3 chronic kidney disease, without long-term current use of insulin, unspecified whether stage 3a or 3b CKD (HC) Dispense glucose meter, test strips and lancets covered by the patient insurance. Test 2 times per day. 1 Each 07/31/19 25 Active blood-glucose meterIndications :Type II or unspecified type diabetes mellitus without mention of complication, not stated as uncontrolled (HC) Dispense glucose meter, test strips and lancets covered by the patient insurance. Test 3 times per day. 1 Device 0 03/19/20 13 025 Discontinu ed(Reorder (E-cancel not sent)) guaiFENesin (MUCINEX) 600 mg Extended-Release tablet Take 1 Tablet (600 mg) by mouth 2 times daily if needed for Expectoration. 0 01/18/20 22 025 Discontinu ed(*Med complete/R egimen complete/L evel of care change) loperamide (IMODIUM) 2 mg capsule TAKE ONE CAPSULE BY MOUTH TWICE DAILY NEEDED* 09/28/19 23 025 Discontinu ed(*Med complete/R egimen complete/L evel of care change) ferrous sulfate, 65 mg elemental, tabletIndication s:Anemia due to acute blood loss Take 1 Tablet (325 mg) by mouth once daily with a meal. 100 Tablet 3 04/04/20 23 025 Discontinu ed(*Med complete/R egimen complete/L evel of care change) metoprolol succinate (TOPROL XL) 50 mg sustained-releas e tabletIndication s:Hypertension, unspecified type Take 1 Tablet (50 mg) by mouth once daily. 90 Tablet 3 05/16/19 24 025 Discontinu ed(*Medica tion adjustment ) magnesium glycinate 100 mg magnesium capIndications:H ypomagnesemia Take 1 Capsule by mouth once daily. 06/08/19 24 025 Discontinu ed(*Medica tion adjustment ) amLODIPine (NORVASC) 5 mg tabletIndication s:Aortic valve insufficiency, etiology of cardiac valve disease unspecified Take 1 Tablet (5 mg) by mouth once daily. 90 Tablet 3 12/13/19 24 025 Discontinu ed(*Med complete/R egimen complete/L evel of care change) lisinopriL (PRINIVIL; ZESTRIL) 10 mg tabletIndication s:Essential hypertension Take 2 Tablets (20 mg) by mouth once daily. 180 Tablet 3 12/13/19 24 025 Discontinu ed(*Medica tion adjustment ) spironolactone (ALDACTONE) 25 mg tabletIndication s:Hypertension Take 1 Tablet (25 mg) by mouth once daily. 90 Tablet 3 12/13/19 24 025 Discontinu ed(*Med complete/R egimen complete/L evel of care change) ciprofloxacin 500 mg tablet Take 1 Tablet by mouth two times daily. 07/07/19 25 025 Discontinu ed(*Med complete/R egimen complete/L evel of care change) metroNIDAZOLE 500 mg tablet Take 1 Tablet by mouth every 8 hours. 07/07/19 25 025 Discontinu ed(*Med complete/R egimen complete/L evel of care change) metoprolol succinate 50 mg sustained-releas e tabletIndication s:Hypertension, unspecified type TAKE ONE TABLET BY MOUTH ONE TIME DAILY 90 Tablet 07/29/19 25 025 Discontinu ed(*Discon tinued by another clinician) Active Problems Problem Noted Date Diagnosed Date [...] Encounters Date Type Department Care Team Description 07/31/2024 Patient Outreach [facility] Care Management - Advanced Care Team [address] [place] [address] Micki Mckenzie LSW Complex Care Management (Engagement outreach ) 07/30/2024 3:20 PM CDT Office Visit [facility] [address] [place] [address] Jose Linares MD Follow Up (Low magnesium, feeling dizzy) 07/29/2024 Travel 07/28/2024 Telephone [facility] [address] [facility] [address] Kandy Webb RN Home Care (Home care services) 07/27/2024 Orders Only [facility] Scanner 1 scan: (1-Ord) [place], RESULTS, 07/27/2024 07/27/2024 Home Care Visit [facility] [address] [place] [address] Renetta Ybarra RN NOT TAKEN UNDER HOME CARE 07/26/2024 Refill [facility] [address] [place] [address] Jose Linares MD Refill Request (Metoprolol Succinate) 07/25/2024 Home Care Visit [facility] [address] [facility] [place] [address] Renetta Ybarra, CHRIS CARE COORDINATION 07/25/2024 Home Care Visit [facility] [address] [facility] [place] [address] Kandy Webb RN CARE COORDINATION 07/24/2024 Patient Outreach [facility] Care Management - Care Management Navigation/[employer] [facility] [address] [place] [address] Micki Isbell Error-please disregard 07/24/2024 Telephone [facility] [address] [place] [address] Jose Linares MD returning call (Erin is the patient's ex and who the patient stay with. Erin is returning a call from this morning to the patient.) 07/24/2024 Telephone [facility] [address] [place] [address] Jose Sousa MD Abnormal Lab Results 07/23/2024 9:35 AM CDT Office Visit [facility] [address] [place] [address] Jose Linares MD ER Follow up ([place], abdominal pain, 07/05/24 and 07/10/24, [facility]) 07/23/2024 Orders Only [facility] Scanner 1 scan: (1-Ord) [facility], LAB RESULT, 07/23/2024 07/23/2024 Orders Only [facility] Scanner 1 scan: (1-Ord) [facility], MULTIPLE LABS, 07/23/2024 07/22/2024 Travel 07/10/2024 2:00 PM CDT Ancillary Procedure [facility] [address] [place] [address] 07/10/2024 Lab Requisition [facility] [phone] Gely Nina MD 07/09/2024 Orders Only [facility] Scanner 1 scan: (1-Ord) [place], CT ABD PELVIS W/ CON, 07/09/2024 07/09/2024 Orders Only [facility] Scanner 1 scan: (1-Ord) [facility], CHEST 2VIEWS, 07/09/2024 07/05/2024 Orders Only [facility] Scanner 1 scan: (1-Ord) [facility], CT ABDOMEN PELVIS W CON, 07/05/2024 06/26/2024 Refill [facility] [address] [place] [address] VoJose menezes MD Refill Request (Citalopram) from Last 3 Months Immunizations Immunization Administration Dates Next Due AMB Influenza, IIV3 (Age >=3 years)(Flu Clinic Only) 02/26/2013 COVID-19 vaccine (Moderna 100mcg/0.5mL) PF, MDV 10/28/2021,08/26/2021,02/20/2021,07/27,06/29/2020 COVID-19 vaccine ([employer] NTech 30mcg/0.3mL) 12YO+ BIVALENT PF, MDV 09/05/2022 COVID-19 vaccine ([employer] NTech 30mcg/0.3mL) PF, MDV 08/05/2022,10/28/2021 Influenza A [...] on file Legal Sex Male 5:26 AM PROJECT CONTROL ANALYST Gender Identity Not on file Sexual Orientation Not on file Occupation Industry Job Start Date Job End Date Not on file Not on file Not on file Not on 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 Not on file Not on file Obstetrics History Last Filed Vital Signs Vital Sign Reading Time Taken Comments Blood Pressure 110/55 07/30/2024 4:10 PM CDT Pulse 88 07/30/2024 3:20 PM CDT Temperature 36.6 C (97.8 F) 07/23/2024 9:57 AM CDT Respiratory Rate 18 01/23/2023 10:4 5 AM CDT Oxygen Saturation 98% 07/30/2024 3:20 PM CDT Inhaled Oxygen Concentration - - Weight 111.6 kg (246 lb 1.6 oz) 07/30/2024 3:20 PM CDT Height 170.2 cm (5' 7) 12/13/2023 1:52 PM CDT Body Mass Index 38.54 12/13/2023 1:52 PM CDT Plan of Treatment Upcoming Encounters Date Type Department Care Team (Late st Contact Info) Description 08/07/2024 1:40 PM CDT Office Visit [facility] [address] [place] [address] VotelJose MD [address] [place] [address] Health Maintenance Due Date Last Done Comments Hepatitis C screening for ag e 18-79 01/06/1968 Zoster (shingles) series for age 50+ (3 [...] history exists Medical Devices Implanted Type Area Cylinder Batcher Device Identifier Shelf Expiration Date Model / Serial / Lot Amplatz Ureteral Stent Set Implanted:Qty: 1 on 06/02/2013 at [facility] UTSSW-10.2-2 4-AMP- / / Description:AMPLATZ URETERAL STENT SET Procedures Procedure Name Priority Date/Time Associated Diagnosis Comments BASIC METABOLIC PANEL Routine 07/30/2024 4:43 PM CDT Hyponatremia MAGNESIUM Routine 07/30/2024 4:43 PM CDT Low magnesium level CBC W PLT NO DIFF Routine 07/30/2024 4:4 3 PM CDT Other iron deficiency anemia SCAN-LABORATORY REPORT 12:00 AM CDT MAGNESIUM Routine 07/23/2024 1:28 PM CDT Low magnesium level FERRITIN Routine 07/23/2024 1:28 PM CDT Anemia of unknown etiology CBC WITH AUTO DIFFERENTIAL Routine 07/23/2024 9:39 AM CDT Unspecified hypertension BASIC METABOLIC PANEL Routine 07/23/2024 9:39 AM CDT Unspecified hypertension HEMOGLOBIN A1C MONITORING (POCT) Routine 07/23/2024 9:38 AM CDT Diabetes mellitus type 2 SCAN-LABORATORY REPORT 12:00 AM CDT SCAN-LABORATORY REPORT 12:00 AM CDT ECHO TTE COMPLETE WO CONTRAST Routine 07/10/2024 [...] REPORT 07/09/2024 12:00 AM CDT SCAN-CT INTERPRETATION 5 12:00 AM PROJECT CONTROL ANALYST LIPID PANEL W REFLEX MEASURED LDL Routine 12/13/2023 1:45 PM CDT Hyperlipidemia CTA CHEST ABDOMEN PELVIS AORTIC DISSECTION W STAT 10/26/2022 5:45 PM CDT COLONOSCOPY DIAGNOSTIC Routine 2 6:56 AM PROJECT CONTROL ANALYST Screening for colon cancer from Last 3 Months or Most Recently Relevant to Health Maintenance Results * (ABNORMAL) CBC W PLT NO DIFF (07/30/2024 4:43 PM CDT) WHITE BLOOD CELL COUNT 6.4 3.8 - 10.8 Thousand/u L [facility] RED BLOOD CELL COUNT 2.97(L) 4.20 - 5.80 Million/uL [facility] HEMOGLOBIN 8.5(L) 13.2 - 17.1 g/dL [facility] HEMATOCRIT 26.3(L) 38.5 - 50.0 % [facility] MCV 88.6 80.0 - 100.0 fL [facility] MCH 28.6 27.0 - 33.0 pg [facility] MCHC 32.3 32.0 - 36.0 g/dL [facility] Comment: For adults, a slight decrease in the calculated MCHC value (in the range of 30 to 32 g/dL) is most likely not clinically significant; however, it should be interpreted with caution in correlation with other red cell parameters and the patient's clinical condition. RDW 13.2 11.0 - 15.0 % [facility] PLATELET COUNT 225 140 - 400 Thousand/u L [facility] MPV 12.5 7.5 - 12.5 fL [facility] Blood BLOOD SPECIMEN / Unknown 07/30/2024 4:43 PM CDT 07/30/2024 4:44 PM CDT us Jose Linares MD HEMATOLOGY Final Re sult [employer] [place] [facility] [address] [place] [address], [place] [phone] [facility] [address] [place] [address] * (ABNORMAL) MAGNESIUM (07/30/2024 4:43 PM CDT) Only the most recent of2 resultswithin the time period is included. MAGNESIUM 1.3(L) 1.5 - 2.5 mg/dL [facility] Blood BLOOD SPECIMEN / Unknown 07/30/2024 4:43 PM CDT 07/30/2024 4:44 PM CDT Jose Linares MD CHEMISTRY Final Re sult [facility] [address] [place] [address], [facility] [address] [place] [address] * (ABNORMAL) BASIC METABOLIC PANEL (07/30/2024 4:43 PM CDT) Only the most recent of2 resultswithin the time period is included. GLUCOSE 64(L) 65 - 99 mg/dL [facility] Comment: Fasting reference interval UREA NITROGEN (BUN) 24 7 - 25 mg/dL [facility] CREATININE 0.72 0.70 - 1.28 mg/dL [facility] EGFR 96 > OR = 60 mL/min/1. 73m2 [facility] BUN/CREATININE RATIO SEE NOTE: 6 - 22 (calc) [facility] Comment: Not Reported: BUN and Creatinine are within reference range. SODIUM 135 135 - 146 mmol/L [facility] POTASSIUM 4.3 3.5 - 5.3 mmol/L [facility] CHLORIDE 98 98 - 110 mmol/L [facility] CARBON DIOXIDE 30 20 - 32 mmol/L [facility] ELECTROLYTE BALANCE 7 7 - 17 mmol/L (calc) [facility] CALCIUM 9.7 8.6 - 10.3 mg/dL [facility] Blood BLOOD SPECIMEN / Unknown 07/30/2024 4:43 PM CDT 07/30/2024 4:44 PM CDT Jose Linares MD CHEMISTRY Final Re sult Performing Organization Address [facility]/ZIP Co de Phone Number [facility] [facility] [address] [place] [address], [place] [phone] [facility] [address] [place] [address] * SCAN-LABORATORY REPORT (07/27/2024 12:00 AM CDT) Only the most recent of3 resultswithin the time period is included. Scanner OTHER Final Result * FERRITIN (07/23/2024 1:28 PM CDT) [facility] FERRITIN 25 24 - 380 ng/mL [facility] Blood BLOOD SPECIMEN / Unknown 07/23/2024 1:28 PM CDT 07/23/2024 1:28 PM CDT Jose Linares MD CHEMISTRY Final Re sult Performing Organization Address [facility] Co de Phone Number [employer] [address] [address], [place] [phone] [facility] [address] [place] [address] * (ABNORMAL) CBC AND DIFFERENTIAL (07/23/2024 9:39 AM CDT) [facility] WHITE BLOOD CELL COUNT 5.3 3.8 - [...] Linares MD HEMATOLOGY Final Re sult [facility] [address] [place] [address], [facility] [address] [place] [address] * HEMOGLOBIN A1C MONITORING (POCT) (07/23/2024 9:38 AM CDT) POC HEMOGLOBIN A1C 4.8 <6.0 % OF TOTAL HGB [facility] Comment: Any point of care results exhibiting inconsistency with the patient's clinical status should be repeated using a different testing method. Blood BLOOD SPECIMEN / Unknown 07/23/2024 9:38 AM CDT 07/23/2024 9:38 AM CDT us Jose Linares MD CHEMISTRY Final Re sult [facility] [address] [place] [address], [facility] [address] [place] [address] * ECHO TTE COMPLETE WO CONTRAST (07/10/2024 [...] BSA: 2.23 m Weight: 114.00 kg Tech: [facility] Referring MD: GELY NINA Site: [facility] Reading Location: MOBILE Patient Location: Inpatient. Procedure: 2D, Color Doppler [...] study was interpreted by an [facility] accredited facility. CC: HIM (med records) [facility], Med/Surg - IP [facility]. Final Procedure Note Greg Ford MD - 07/10/2024 ECHOCARDIOGRAM NICKY TRUJILLO : 1950 74 years Study Date: 07/10/2024 1:51:22 PM Gender: M BP: 116/62 mmHg Height: 170.00 cm BSA: 2.23 m Weight: 114.00 kg Tech: [facility] Referring MD: GELY NINA Site: [facility] Reading Location: MOBILE [...] [facility] accredited facility. CC: HIM (med records) [facility], Med/Surg - IP [facility]. Final Gely Nina MD ECHO ORD Final Result * LAB TRACKING EVENT (07/10/2024 7:00 AM CDT) Other (Other) Client Collect / Unknown 07/10/2024 7:00 AM CDT 07/10/2024 2:44 PM CDT Gely Nina MD LAB BILL ONLY Final Result [facility] [address] [place] [address], * (ABNORMAL) CBC WITH AUTO DIFFERENTIAL (07/10/2024 [...] [facility] % IMMATURE GRAN (METAS,MYELOS,[place] OS) 0.2 % 07/10/2024 2:59 PM CDT [...] us Gely Nina MD HEMATOLOGY Final Result [facility] [address] [place] [address], * PERIPHERAL BLD MORPHOLOGY (07/10/2024 7:00 AM CDT) Case Report Special Hematology Report Case: [id number] Authorizing Provider: Gely Nina MD Collected: 07/10/2024 0700 Ordering Location: [facility] Received: 07/10/2024 1600 Pathologist: Charles Sandoval MD Specimen: Peripheral Blood 07/11/2024 3:51 PM CDT [facility] Final Diagnosis PERIPHERAL BLOOD: 1. Moderate normocytic anemia with poikilocytosis 2. See comment 07/11/2024 3:51 PM CDT [facility] at 1551 CDT Comment The features of the anemia are nonspecific. The differential includes iron deficiency, anemia of chronic disease, anemia of chronic renal insufficiency, anatomic blood loss and medication effect. There is no morphologic evidence of hemolysis. This case was also reviewed by Marni Veras MT, MS ([facility]). 07/11/2024 3:51 PM CDT [facility] Clinical Information The the patient is a 74-year-old male. Per CBC scan: Chronic anemia Per EPIC: Additional history includes hypertension, postoperative hypotensive ASHD, chronic systolic CHF, diabetes, SP gastric bypass, and BPH. 07/11/2024 3:51 PM CDT [facility] CBC and Differential HEMATOLOGY PARAMETERS Tested at: [facility] RESULTS EXPECTED VALUES WBC: 4.7 [id number]/cumm RBC: 2.95 4.30-5.90 mil/cumm DECREASED HGB: 8.5 13.5-17.5 gm/di DECREASED HCT: 25.1 37-53% DECREASED MCV: 85.0 80-100 fl NORMOCYTIC MCH: 28.8 26-34 pg MCHC: 33.9 32-36 gm/dl NORMOCHROMIC RDW: 13.5 11.5-15.5% PLT: 141 [id number]/uL MPV: 13.0 6.5-11 fl ELEVATED Retic: 1.5 0.5-1.5% Differential Tested at: [facility] Absolute (%) Expected (%) (x10*9/L) (x10*9/L) Neutrophils: 2.11.7 (44.6) 1.7-7.0 (42-72%) Lymphocytes: 1.70.9 (36) 0.9-2.9 (20-44%) Monocytes: 0.5 (10.5) <0.9 (0-11%) Eosinophils: 0.3 (6.3) <0.5 (0-2%) Basophils: 0.1 (2.1) <0.3 (<3.0%) 07/11/2024 3:51 PM CDT [facility] Reticulocytes Retic: 1.5 0.5-1.5% 07/11/2024 3:51 PM CDT [facility] Microscopic Description The final diagnosis is based on microscopic examination of an appropriately stained blood smear. 07/11/2024 3:51 PM CDT [facility] Additional Information Interpreted at [facility] - [address], [place] [address] 07/11/2024 3:51 PM CDT [facility] Blood (Peripheral Blood) 07/10/2024 7:00 AM CDT 07/10/2024 4:00 PM CDT Gely Nina MD HEMATOLOGY Final Result Performing Organization Address [facility] Co de Phone Number [facility] [address] [phone], [place] * RETICULOCYTES (07/10/2024 7:00 AM CDT) RETIC% 1.5 0.5 - 1.5 % 07/10/2024 2:59 PM CDT [facility] RETIC (ABSOLUTE) 0.04 0.03 - 0.08 mil/cu mm 07/10/2024 2:59 PM CDT [facility] Blood BLOOD SPECIMEN / Unknown Client Collect / Unknown 07/10/2024 7:00 AM CDT 07/10/2024 2:44 PM CDT Gely Nina MD HEMATOLOGY Final Result Performing Organization Address [facility] Co de Phone Number [facility] [address] [place] [address], [place] * SCAN-RADIOLOGY REPORT (07/09/2024 12:00 AM [...] ORDERED STATUS RANDOM 12/13/2023 10:46 PM CDT [facility] Blood BLOOD SPECIMEN / Unknown Venipuncture / Unknown 12/13/2023 1:45 PM CDT 12/13/2023 1:45 PM CDT us Jose Linares MD CHEMISTRY Final Re sult [facility] [address] [place] [address], [place] * CTA CHEST ABDOMEN PELVIS AORTIC [...] CHEST ABDOMEN PELVIS AORTIC DISSECTION W LOCATION: [facility] DATE: 10/26/2022 INDICATION: Anemia. GI [...] CHEST ABDOMEN PELVIS AORTIC DISSECTION W LOCATION: [facility] DATE: 10/26/2022 INDICATION: Anemia. GI [...] ult * COLONOSCOPY DIAGNOSTIC (04/03/2022 12:00 AM PROJECT CONTROL ANALYST) Jose Linares MD GI PROCEDURE ORD Final [...] renal fluid 01/01/09; blood 08/03/2016 08/03/2016 Insurance BLUE CROSS MEDICARE ADVANTAGE [facility] Advance Directives * Full Code (Latest Code [...] Not DiscussedPer Advance Care Plan Care Teams Bat Carrier Relationship Specialty Start Date End Date Votel, Jose Bateman MD [address] [place] [address] PCP - General Family Practice 08/17/11 [facility] [address] [place] [address] 07/23/24 Micki Mckenzie, BINDER SORTER [address] [place] [address] Cheese Sprayer 07/30/24 [facility] [place] [address] [address] 07/31/24
--- NOTE | 2024-08-01 13:41 | CRLHL7_ITS ---
For Patients: As a result of the Cures Act, medical imaging exams and procedure reports are released immediately into your electronic medical record. You may view this report before your referring provider. If you have questions, please contact your health care provider. INDICATION: Weakness TECHNIQUE: Chest radiograph 1 view on 2 films COMPARISON: 07/09/2024 FINDINGS: The sensitivity and specificity of the exam are severely limited by the patient`s body habitus. Mediastinum: The central pulmonary arteries are enlarged and likely due to pulmonary hypertension. The heart silhouette is normal in size and morphology. Lung: Small lung volumes are present with new nodular infiltrates in both bases. Mild patchy airspace opacities are present in the right perihilar region. No sign of pleural effusion seen. No pneumothorax is identified. Bone and Soft tissue: Remote fracture deformity of the right 5th rib is noted without change. IMPRESSIONS: 1. Small lung volumes are present with new nodular infiltrates in both bases. Mild patchy airspace opacities are present in the right perihilar region. Findings may be due to pneumonia. 2. The central pulmonary arteries are enlarged and likely due to pulmonary hypertension. Dictated by Franklin Wright MD @ 08/01/2024 2:16:41 PM Dictated by: Franklin Wright MD @ 08/01/2024 14:16:46 (Electronically Signed)
[2024-08-01 14:00] LABS: Troponin, Point-of-Care* 0.02 ng/ml (0.01-0.04)
[2024-08-01 14:03] LABS: Fecal Occult Blood* Positive (Negative)
--- NOTE | 2024-08-01 14:08 | ED_ITS ---
[facility] - General Adult General Date Seen: 08/01/24 Chief complaint: GI Bleed Stated complaint: Weakness, GI bleed Time Seen by Provider: 08/01/24 13:23 History of Present Illness HPI narrative: Patient is a 74-year-old male here by EMS for weakness and falls. He has been hospitalized twice last month related to anemia and electrolyte abnormalities, sepsis. He says he has been staying with his ex- and she was concerned about falls. He denies syncope. He is not an entirely verbose historian, does not seem to be entirely sure what is been going on recently. He does deny a any injuries from his falls. He denies current chest pain or shortness of breath. He denies current abdominal pain. According to the nurse's note, black stools were reported at home today, when I asked about blood in his stools he did not seem to be aware of that. Medics noted low blood pressures with systolics in the 80s and 90s, he is not hypotensive here. He tells me he has been taking his medications including his magnesium. He was [facility] yesterday, blood pressure is it sounds like were running on the low side and his lisinopril was decreased from 20 mg daily to 10 mg daily. He labs at clinic yesterday were notable for a sodium of 135, a magnesium of 1.3, hemoglobin of 8.5. His hemoglobin was in the eights while here in the hospital. 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 Last upper GI was in 2021. At a recent hospital admission he had an echo which showed moderate aortic stenosis, normal LV ejection fraction. He is not anticoagulated. Related Data Home Medications ?Medication ?Instructions ?Recorded ?Confirmed atorvastatin 40 mg tablet 40 mg PO DAILY 01/10/22 07/24/24 citalopram 10 mg tablet 10 mg PO DAILY 01/10/22 07/24/24 metformin 1,000 mg tablet 1,000 mg PO BIDWM 01/10/22 07/24/24 cholecalciferol (vitamin D3) 25 1,000 unit PO DAILY 01/23/22 07/24/24 mcg (1,000 unit) tablet pantoprazole 40 mg tablet,delayed 40 mg PO DAILY 01/23/22 07/24/24 release lisinopril 10 mg tablet 20 mg PO DAILY 09/26/22 07/24/24 amlodipine 5 mg tablet 5 mg PO DAILY 02/08/24 07/24/24 spironolactone 25 mg tablet 25 mg PO DAILY 02/08/24 07/24/24 Previous Rx's ?Medication ?Instructions ?Recorded aspirin 81 mg chewable tablet 81 mg PO DAILY #30 tabs 09/27/22 (Children's Aspirin) torsemide 5 mg tablet 5 mg PO DAILY #30 tabs 09/27/22 magnesium oxide 400 mg (241.3 mg 400 mg PO BID #60 tabs 07/12/24 magnesium) tablet metoprolol succinate 25 mg 25 mg PO DAILY #30 tabs 07/12/24 tablet,extended release 24 hr potassium chloride 10 mEq 20 meq (2 x 10 mEq) PO DAILYWM #60 07/12/24 capsule,extended release caps Allergies Allergy/AdvReac Type Severity Reaction Status Date / Time No Known Drug Allergies Allergy Verified 08/01/24 15:18 Review of Systems Status of ROS: Reports: unobtainable due to mental status [facility] Medical History Alonso esophagus ?K22.70 - 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 (ICD-10) Anemia ?D64.9 - Anemia, unspecified (ICD-10) Atrial flutter with rapid ventricular response ?I48.92 - Unspecified atrial flutter (ICD-10) Gastritis ?K29.70 - Gastritis, unspecified, without bleeding (ICD-10) Diverticulitis ?K57.92 - Diverticulitis of intestine, part unspecified, without perforation or abscess without bleeding (ICD-10) NSTEMI (non-ST elevated myocardial infarction) ?I21.4 - Non-ST elevation (NSTEMI) myocardial infarction (ICD-10) Polyp of duodenum ?K31.7 - Polyp of stomach and duodenum (ICD-10) Sinus tachycardia ?R00.0 - Tachycardia, unspecified (ICD-10) Heart failure with preserved ejection fraction ?I50.30 - Unspecified diastolic (congestive) heart failure (ICD-10) Hyponatremia ?E87.1 - Hypo-osmolality and hyponatremia (ICD-10) Obstructive sleep apnea ?G47.33 - Obstructive sleep apnea (adult) (pediatric) (ICD-10) Hypokalemia ?E87.6 - Hypokalemia (ICD-10) Noncompliance with medication regimen ?Z91.148 - Patient's other noncompliance with medication regimen for other reason (ICD-10) Type 2 PA (myocardial infarction) ?I21.A1 - Myocardial infarction type 2 (ICD-10) Sepsis associated hypotension ?A41.9 - Sepsis, unspecified organism (ICD-10) ?I95.9 - Hypotension, unspecified (ICD-10) Metabolic encephalopathy ?G93.41 - Metabolic encephalopathy (ICD-10) Acute right-sided weakness ?R53.1 - Weakness (ICD-10) Medical non-compliance ?Z91.199 - Patient's noncompliance with other medical treatment and regimen due to unspecified reason (ICD-10) Unintentional weight loss ?R63.4 - Abnormal weight loss (ICD-10) Atrial arrhythmia ?I49.8 - Other specified cardiac arrhythmias (ICD-10) Abnormal CT of brain ?R90.89 - Other abnormal findings on diagnostic imaging of central nervous system (ICD-10) Episode of gagging ?R19.8 - Other specified symptoms and signs involving the digestive system and abdomen (ICD-10) Seborrhea of face ?L21.9 - Seborrheic dermatitis, unspecified (ICD-10) Nausea ?R11.0 - Nausea (ICD-10) Microcytic anemia ?D50.9 - Iron deficiency anemia, unspecified (ICD-10) Steroid-induced hyperglycemia ?R73.9 - Hyperglycemia, unspecified (ICD-10) ?T38.0X5A - Adverse effect of glucocorticoids and synthetic analogues, initial encounter (ICD-10) Pituitary adenoma with extrasellar extension ?D35.2 - Benign neoplasm of pituitary gland (ICD-10) Benign non-nodular prostatic hyperplasia with lower urinary tract symptoms ?N40.1 - Benign prostatic hyperplasia with lower urinary tract symptoms (ICD- 10) ASHD (arteriosclerotic heart disease) ?I25.10 - Atherosclerotic heart disease of [place] coronary artery without angina pectoris (ICD-10) Kidney stones ?N20.0 - Calculus of kidney (ICD-10) Aortic stenosis ?I35.0 - Nonrheumatic aortic (valve) stenosis (ICD-10) MRSA bacteremia ?R78.81 - Bacteremia (ICD-10) ?B95.62 - Methicillin resistant Staphylococcus aureus infection as the cause of diseases classified elsewhere (ICD-10) Postoperative hypotension ?I95.81 - Postprocedural hypotension (ICD-10) Morbid obesity ?E66.01 - Morbid (severe) obesity due to excess calories (ICD-10) Hyperlipidemia ?E78.5 - Hyperlipidemia, unspecified (ICD-10) Abnormal colonoscopy ?R93.3 - Abnormal findings on diagnostic imaging of other parts of digestive tract (ICD-10) Hx of colonic polyps ?Z86.010 - Personal history of colonic polyps (ICD-10) Sleep apnea ?G47.30 - Sleep apnea, unspecified (ICD-10) Malignant melanoma of right upper extremity ?C43.61 - Malignant melanoma of right upper limb, including shoulder (ICD-10) Hypertension ?I10 - Essential (primary) hypertension (ICD-10) Diabetes mellitus type 2 in obese ?E11.69 - Type 2 diabetes mellitus with other specified complication (ICD-10) ?E66.9 - Obesity, unspecified (ICD-10) Surgical History History of transurethral resection of prostate ?Z98.890 - Other specified postprocedural states (ICD-10) ?Z90.79 - Acquired absence of other genital organ(s) (ICD-10) 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) H/O vasectomy ?Z98.52 - Vasectomy status (ICD-10) S/P skin biopsy ?Z98.890 - Other specified postprocedural states (ICD-10) H/O nephrostomy H/O lithotripsy ?Z98.890 - Other specified postprocedural states (ICD-10) S/P laparoscopic sleeve gastrectomy ?Z98.84 - Bariatric surgery status (ICD-10) History of total right hip arthroplasty ?Z96.641 - Presence of right artificial hip joint (ICD-10) H/O umbilical hernia repair ?Z98.890 - Other specified postprocedural states (ICD-10) ?Z87.19 - Personal history of other diseases of the digestive system (ICD-10) H/O hemorrhoidectomy ?Z98.890 - Other specified postprocedural states (ICD-10) Hx of colonoscopy ?Z98.890 - Other specified postprocedural states (ICD-10) H/O right hemicolectomy ?Z90.49 - Acquired absence of other specified parts of digestive tract (ICD- 10) Hx of appendectomy ?Z90.49 - Acquired absence of other specified parts of digestive tract (ICD- 10) Family History Father Colon cancer Obesity Sister Diabetes Obesity Mother Heart disease High blood pressure Hyperlipidemia Obesity Stroke Social History Narrative: [place] Requests that we talk with his ex- about current health issues. Son is also actively involved in assisting his care. Wishes to be full code. He does not smoke. What is your current living situation?: I presently have a place to live Problems where you live: no known problems Problems where you live details: n/a - living with ex-spouse during period of illness In the past 12 months, utilities in danger of being shut off: no In past 12 months, lack of transportation kept you from medical appts, meetings, work, or getting things needed for daily living: no In the past 12 mos, have been you worried that your food would run out before you had money to buy more?: never true In the past 12 mos, the food you bought just didn't last and you didn't have money to buy more?: never true Highest level of school completed/degree received: Associate degree: occupational, technical, vocational program Smoking Status: Former smoker What tobacco products do you use: cigarettes Years smoked: 30 Smoking quit date/years: >15 years ago Do you use any of these nicotine containing products: None Second hand tobacco smoke exposure: No How often do you have a drink containing alcohol: never How many standard drinks containing alcohol do you have on a typical day: 1 or 2 How often do you have six or more drinks on one occasion: Never AUDIT-C Alcohol total score: 0 Non-prescribed substance use: denies use Caffeine: Yes (3-4 daily) How often does anyone, including family, friends and others, physically hurt you : never How often does anyone, including family, friends and others, insult or talk down to you: never How often does anyone, including family, friends and others, threaten you with harm: never How often does anyone, including family, friends and others, scream or curse at you: never Do you think of yourself as: straight/heterosexual Gender Identity: male service: No Exam Narrative: Exam Narrative: Vital signs reviewed In general, an alert elderly male, he is extremely pale. Head: Normocephalic, atraumatic. Eyes: Sclera clear. Pupils equal and reactive. Conjunctiva pale. ENT: Mucous membranes moist. Neck: Supple without adenopathy. Heart: Mildly tachycardic, mildly irregular with frequent PVCs seen on the monitor. Systolic murmur. Lungs: Clear. No increased work of breathing, crackles or wheezes. Abdomen: Soft, nontender to palpation. Rectal: stool is dark brown, no obvious masses. Extremities: Well perfused, pulses intact. No significant edema. Neurologic: Alert, conversant. Speech fluent, though mildly dysarthric, face symmetric. Moves all extremities equally. Skin: Warm dry, pale Affect: Normal. Const: Vital Signs, click to edit/add: Vital Signs - 24 hr 08/01/24 13:29 08/01/24 13:30 08/01/24 13:33 Temperature 98.1 F Pulse Rate 64 56 L Pulse Rate [Pulse Oximeter] 106 H Respiratory Rate 16 16 Blood Pressure 123/54 L Blood Pressure [Ri ght Upper Arm] 123/54 L Pulse Oximetry 97 96 95 Oxygen Delivery Me thod Room Air 08/01/24 13:45 08/01/24 13:51 08/01/24 14:00 Temperature Pulse Rate 57 L 52 L 66 Pulse Rate [Pulse Oximeter] Respiratory Rate 12 Blood Pressure 98/36 L Blood Pressure [Ri ght Upper Arm] Pulse Oximetry 93 96 96 Oxygen Delivery Me thod 08/01/24 14:02 08/01/24 14:15 08/01/24 14:17 Temperature Pulse Rate 90 61 54 L Pulse Rate [Pulse Oximeter] Respiratory Rate 18 14 Blood Pressure 114/56 L 120/60 Blood Pressure [Ri ght Upper Arm] Pulse Oximetry 93 94 93 Oxygen Delivery Me thod 08/01/24 14:30 08/01/24 14:32 08/01/24 14:33 Temperature Pulse Rate 58 L 88 59 L Pulse Rate [Pulse Oximeter] Respiratory Rate 21 19 20 Blood Pressure 107/62 Blood Pressure [Ri ght Upper Arm] Pulse Oximetry 94 93 94 Oxygen Delivery Fl thod 08/01/24 14:45 08/01/24 14:46 08/01/24 15:15 Temperature Pulse Rate 65 76 67 Pulse Rate [Pulse Oximeter] Respiratory Rate 12 Blood Pressure 108/61 Blood Pressure [Ri ght Upper Arm] Pulse Oximetry 94 94 94 Oxygen Delivery Fl thod 08/01/24 15:17 08/01/24 15:18 08/01/24 15:30 Temperature Pulse Rate 86 64 74 Pulse Rate [Pulse Oximeter] Respiratory Rate 19 16 Blood Pressure 108/58 L Blood Pressure [Ri ght Upper Arm] Pulse Oximetry 94 95 94 Oxygen Delivery Fl thod 08/01/24 15:32 08/01/24 15:33 08/01/24 15:45 Temperature Pulse Rate 77 83 74 Pulse Rate [Pulse Oximeter] Respiratory Rate 15 20 Blood Pressure 90/48 L Blood Pressure [Ri ght Upper Arm] Pulse Oximetry 95 92 [facility] 15[facility]47 08/01/24 16:00 08/01/24 16:01 Temperature Pulse Rate 82 81 61 Pulse Rate [Pulse Oximeter] Respiratory Rate 16 16 13 Blood Pressure 96/55 L 101/65 Blood Pressure [Ri ght Upper Arm] Pulse Oximetry 93 92 [facility] 16:15 08/01/24 16:17 Temperature Pulse Rate 70 82 Pulse Rate [Pulse Oximeter] Respiratory Rate 19 19 Blood Pressure 96/61 Blood Pressure [Ri ght Upper Arm] Pulse Oximetry 93 [facility] Course: Patient had an EKG, he has frequent ectopy with some runs of PVCs. His magnesium was 1.3 yesterday and I am just going to replace that today. His potassium yesterday was normal at 4.3. Labs are pending including a type and screen. Fecal occult blood is pending as well. Labs here are notable for a white blood cell count of 9.24, left shift with 85% neutrophils. Hemoglobin is 8.1, this is relatively stable, was 8.5 when checked in clinic yesterday. Platelets normal. INR is 1.11, PTT is 34. Metabolic panel is notable for sodium of 130, this is up relative to a week ago when it was 119. Potassium is normal 3.9. His magnesium remains low at 1.3 and I did give him 2 g IV. His lactate was somewhat elevated at 3 of indeterminate significance, other not otherwise triggers for sepsis at this time. I did give him a 500 mL normal saline bolus. His stool occult blood was positive. Point of care troponin was 0.02. His chest x-ray showed perhaps some new infiltrates at the bases by my review compared to last month. Radiology read this as possible pneumonia. I ordered a CT scan GI bleed protocol and elected just to scan his chest as well to take a better look at his lungs. His ex- did arrive and said he had been complaining of sore throat and cough this morning as well. COVID screen is added on. CT scan of the abdomen and chest awaiting radiology read, he has some mild infiltrate primarily on the left by my review on the chest CT. I do not see obvious extravasation on the abdominal CT. I recommended admission for serial hemoglobins given that we have documented blood loss in his stool and he does not have a lot of leeway in terms of his hemoglobin. At this time I do not see clear indication for antibiotics. Electrolytes aside from the magnesium are significantly improved. CT scans of the chest abdomen and pelvis are read by Radiology and reviewed. There are nodular airspace opacities within the central right upper and peripheral right upper lobes some of which are noted to have a masslike appearance. May be developing infiltrates, follow-up recommended to ensure resolution. In the abdomen, no obvious extravasation of contrast is seen to suggest active GI bleeding. Discussed with Dr. Nina, patient is admitted to the hospitalist service for serial hemoglobins and observation. Vital Signs Vital signs: Initial Vital Signs Pulse Rate 64 08/01/24 13:29 Blood Pressure 123/54 L 08/01/24 13:29 Blood Pressure Mean 77 08/01/24 13:29 Pulse Oximetry 97 08/01/24 13:29 Vital Signs Pulse Rate 64 08/01/24 13:29 Blood Pressure 123/54 L 08/01/24 13:29 Pulse Oximetry 97 08/01/24 13:29 Temperature 98.1 F 08/01/24 13:33 Pulse Rate 82 08/01/24 16:17 Respiratory Rate 19 08/01/24 16:17 Blood Pressure 96/61 08/01/24 16:17 Pulse Oximetry 92 08/01/24 16:17 Oxygen Delivery Method Room Air 08/01/24 13:33 Medications Administered Medications: Discontinued Medications Generic Name Dose Route Start Last Admin Trade Name Freq PRN Reason Stop Dose Admin Sodium Chloride 500 mls @ 500 mls/hr 08/01/24 13:59 08/01/24 15:36 0.9 % Sodium Chloride 500 Ml IV 08/01/24 14:58 Infused .Q1H ONE Infusion Magnesium Sulfate 2 gm in 50 mls @ 25 mls/hr 08/01/24 13:59 08/01/24 16:10 Magnesium Iv IVPB 08/01/24 15:58 Infused ONCE ONE Infusion Pantoprazole Sodium 40 mg 08/01/24 15:42 08/01/24 16:16 Pantoprazole Sodium 40 Mg Inj IVP 08/01/24 15:43 40 mg ONCE ONE Administration Medical Decision Making Lab Data Labs: Lab Results 08/01/24 08/01/24 08/01/24 Range/Units 13:30 13:35 13:50 WBC 9.24 (4.50-11.00) K/uL RBC 2.86 L (4.30-5.90) m/uL Hgb 8.1 L (13.5-17.5) gm/dL Hct 24.9 L (37.0-53.0) % MCV 87 (80-100) fL MCH 28 (26-34) pg MCHC 33 (32-36) gm/dL RDW Coeff of Daniel 13.5 (11.5-15.5) % Plt Count 184 (140-440) K/uL Neut % (Auto) 85.6 H (42.0-72.0) % Lymph % (Auto) 4.9 L (20-44) % Sebastian % (Auto) 7.3 (0.0-11.0) % Eos % (Auto) 0.9 (0.0-7.0) % Baso % (Auto) 0.4 (0.0-3.0) % Neut # (Auto) 7.90 H (1.7-7.0) K/uL Lymph # (Auto) 0.50 L (0.90-2.90) K/uL Sebastian # (Auto) 0.70 (0.00-0.90) K/UL Eos # (Auto) 0.08 (0.00-0.50) K/uL Baso # (Auto) 0.04 (0.00-0.30) K/uL Abs Immat Gran (auto) 0.08 (0.00-0.30) K/uL Imm/Tot Granulo (auto) 0.9 % INR 1.11 H (0.91-1.10) APTT 34 H (23-33) Seconds Sodium 130 L (135-149) mmol/L Potassium 3.9 (3.6-5.1) mmol/L Chloride 96 (96-114) mmol/L Carbon Dioxide 24 (20-32) mmol/L Anion Gap 10 (7-15) mEq/L BUN 22 (7-30) mg/dL Creatinine 0.7 (0.5-1.5) mg/dL Estimated GFR 97 ml/min Glucose 123 H (60-115) mg/dL Lactate 3.0 H (0.5-1.9) mmol/L Calcium 9.7 (8.4-10.6) mg/dL Magnesium 1.3 L (1.5-2.6) mg/dL Total Bilirubin 0.5 (0.1-1.5) mg/dL Direct Bilirubin 0.3 (0.0-0.5) mg/dL AST 42 H (12-35) U/L ALT 29 (4-50) U/L Alkaline Phosphatase 67 (40-150) U/L C-Reactive Protein 3.5 H (0.5-1.0) mg/dL Total Protein 6.5 (6.0-8.3) g/dL Albumin 4.0 (3.3-5.0) g/dL Stool Occult Blood Positive (Negative) SARS-CoV-2 (PCR) (Negative) Influenza Type A (PCR) (Negative) Influenza Type B (PCR) (Negative) RSV (PCR) (Negative) POC Troponin I 0.02 (0.01-0.04) ng/ml Blood Type Antibody Screen 08/01/24 08/01/24 08/01/24 Range/Units 13:56 15:30 15:35 WBC (4.50-11.00) K/uL RBC (4.30-5.90) m/uL Hgb (13.5-17.5) gm/dL Hct (37.0-53.0) % MCV (80-100) fL MCH (26-34) pg MCHC (32-36) gm/dL RDW Coeff of Daneil (11.5-15.5) % Plt Count (140-440) K/uL Neut % (Auto) (42.0-72.0) % Lymph % (Auto) (20-44) % Sebastian % (Auto) (0.0-11.0) % Eos % (Auto) (0.0-7.0) % Baso % (Auto) (0.0-3.0) % Neut # (Auto) (1.7-7.0) K/uL Lymph # (Auto) (0.90-2.90) K/uL Sebastian # (Auto) (0.00-0.90) K/UL Eos # (Auto) (0.00-0.50) K/uL Baso # (Auto) (0.00-0.30) K/uL Abs Immat Gran (auto) (0.00-0.30) K/uL Imm/Tot Granulo (auto) % INR (0.91-1.10) APTT (23-33) Seconds Sodium (135-149) mmol/L Potassium (3.6-5.1) mmol/L Chloride (96-114) mmol/L Carbon Dioxide (20-32) mmol/L Anion Gap (7-15) mEq/L BUN (7-30) mg/dL Creatinine (0.5-1.5) mg/dL Estimated GFR ml/min Glucose (60-115) mg/dL Lactate 1.4 (0.5-1.9) mmol/L Calcium (8.4-10.6) mg/dL Magnesium (1.5-2.6) mg/dL Total Bilirubin (0.1-1.5) mg/dL Direct Bilirubin (0.0-0.5) mg/dL AST (12-35) U/L ALT (4-50) U/L Alkaline Phosphatase (40-150) U/L C-Reactive Protein (0.5-1.0) mg/dL Total Protein (6.0-8.3) g/dL Albumin (3.3-5.0) g/dL Stool Occult Blood (Negative) SARS-CoV-2 (PCR) Negative SARS-CoV-2 (Negative) Influenza Type A (PCR) Negative PCR FLU A (Negative) Influenza Type B (PCR) Negative PCR FLU B (Negative) RSV (PCR) Negative PCR RSV (Negative) POC Troponin I (0.01-0.04) ng/ml Blood Type A Positive Antibody Screen NEGATIVE Imaging Data CT scan - abdomen: Attestation: I have reviewed the pertinent imaging results. Radiologist's impression: document embedded [place] [id number] Diagnostic Imaging Report Patient: Nicky Hall MR#: [id number] : 1950 Acct:[id number] Loc: ED Service Date: 08/01/[address]: Ordering Physician: Nora Keller M.D. Date of Service: 08/01/24 Procedure(s): CT angio abd pel GI Bleed Accession Number(s): [id number] cc: Nora Keller M.D.; Jose Linares M.D.~ For Patients: As a result of the Cures Act, medical imaging exams and procedure reports are released immediately into your electronic medical record. You may view this report before your referring provider. If you have questions, please contact your health care provider. Indication: Possible pneumonia, blood in stool Technique: Volumetric multidetector CT images of the abdomen and pelvis were obtained before and after the administration of intravenous contrast using a angiographic protocol with delayed imaging and maximum intensity projections. 95 cc Isovue 370 low osmolar intravenous contrast Comparison: None available. Findings: There are calcified basilar nodules similar to previous exam with demonstration of additional nodular airspace opacities within the medial left lung base from comparison. Mild hepatomegaly and hepatic steatosis. No focal abnormality. The portal vein is patent. There is minimal layering calculi within the gallbladder lumen. No evidence of significant pericolonic inflammatory changes. There is no significant common biliary ductal dilatation or abrupt cut off. The spleen is normal in enhancement and size. Postoperative changes of the stomach status post sleeve gastrectomy with demonstration of surgical clips and/or vascular coils within the right upper quadrant adjacent to the head of the pancreas with minimal associated beam hardening artifact. There are calcified nodules throughout the pancreas consistent with likely sequela of chronic pancreatitis changes. No acute pancreatic inflammatory change. The adrenal glands are unremarkable. Cystic changes of the kidneys with otherwise preserved corticomedullary differentiation. No evidence of distal obstructive uropathy. Mild nonspecific thickening of the urinary bladder. Generally decompressed appearance of the central small bowel with [id number] stool in the proximal colon. There scattered radiopacities throughout the bowel likely representing ingestion of radiopaque material. No obvious areas of contrast blush or inflammation to suggest site of GI bleeding. The appendix is not visualized. There is no significant mesenteric, retroperitoneal, or pelvic sidewall lymph nodes. The aorta is nonaneurysmal with moderate scattered atherosclerotic calcification. Minimal atherosclerotic calcification of branch vessels including the celiac axis superior mesenteric artery, renal artery takeoffs and inferior mesenteric arteries are appreciated without evidence of high-grade narrowing. Normal runoff into the bilateral iliac vessels. The solid pelvic viscera are grossly unremarkable. There is no free fluid or free air. There is a small fat containing umbilical hernia. The lumbar vertebral body heights are grossly stable from previous exam with moderate degenerative disc disease with endplate Schmorl`s defects. There is moderate to severe facet arthrosis. No evidence of displaced fracture. Impression: 1. Demonstration of scattered radiopacities throughout the small bowel and colon likely representing ingestion of radiopaque material. No obvious enhancement or contrast blush to suggest site of hemorrhage. 2. Stable postoperative changes status post sleeve gastrectomy. Coil embolization of a right upper quadrant arteries appreciated which casts mild beam hardening artifact. 3. Stable cystic changes of the kidneys with otherwise preserved corticomedullary differentiation. 4. No other acute intra-abdominal abnormalities are appreciated. Please note that all CT scans at this facility use dose modulation, iterative reconstruction, and/or weight-based dosing when appropriate to reduce radiation dose to as low as reasonably achievable. Dictated by Reid Fabian MD @ 08/01/2024 3:50:[address] scan - chest: Attestation: I have reviewed the pertinent imaging results. Radiologist's impression: Patient: NICKY HALL Facility: [facility] . Site : 1950 Study: CT-Chest WITH 95 CC ISOVUE 370-08/01/2024 3:15:14 PM Ordering Physician: Arianna Melendez Final Report: Indication: Possible pneumonia, blood in stool Technique: Volumetric multidetector CT images of the chest were obtained after the administration of IV contrast. 95 cc Isovue 370 low osmolar intravenous contrast Comparison: CT chest September 25, 2022 Findings: The thoracic inlet and thyroid gland are unremarkable. The thoracic aorta is nonaneurysmal. Somewhat limited evaluation of the pulmonary arteries due to contrast bolus timing. No obvious central filling defect. There is no mediastinal, hilar or axillary adenopathy. There is minimal central bronchial thickening similar to previous exam. Mildly patulous esophagus is appreciated. There are nodular airspace opacities within the central right upper and peripheral right upper lobes some of which have a masslike appearance measuring up to 1.9 centimeters in greatest dimension on series 5, image 42. Stable appearance of calcified nodules within the bilateral lower lobes from remote comparison exam with associated basilar atelectasis and parenchymal scar. There is no pneumothorax or pleural effusion. No other pulmonary mass lesions are identified. The partially visualized upper abdomen demonstrates cystic changes of the kidneys and prior postoperative changes of the stomach status post prior sleeve gastrectomy. The thoracic vertebral body heights are grossly maintained with diffuse flowing anterior osteophytosis. No evidence of significant spondylolisthesis or displaced fracture. Impression: 1. Demonstration of developing nodular/masslike airspace opacities within the predominantly right upper lobe with the largest nodular opacity measuring up to 1.9 centimeters. Findings may represent developing atypical infiltrates. Recommend follow-up to document clearance. 2. Stable calcified pulmonary nodules and inflammatory changes within the peripheral lower lobes from previous exam. 3. No other acute cardiopulmonary abnormality is identified. Please note that all CT scans at this facility use dose modulation, iterative reconstruction, and/or weight-based dosing when appropriate to reduce radiation dose to as low as reasonably achievable. Dictated by Reid Fabian MD @ 08/01/2024 3:35:08 PM Discharge Plan Discharge Clinical Impression: GI bleed, Hypomagnesemia, Chronic anemia Patient Disposition: Admitted As Observation
[2024-08-01 14:11] LABS: Chloride* 96 mmol/L (96-114)
[2024-08-01 14:12] LABS: INR 1.11 (0.91-1.10); Potassium* 3.9 mmol/L (3.6-5.1); Prothrombin Time 15.2 Seconds; Sodium* 130 mmol/L (135-149)
[2024-08-01 14:13] LABS: Basophils Absolute Auto 0.04 K/uL (0.00-0.30); Basophils Percent Auto 0.4 % (0.0-3.0); Eosinophils Absolute Auto 0.08 K/uL (0.00-0.50); Eosinophils Percent Auto 0.9 % (0.0-7.0); Hematocrit 24.9 % (37.0-53.0); Hemoglobin* 8.1 gm/dL (13.5-17.5); Immature Granulocytes Abs Auto 0.08 K/uL (0.00-0.30); Immature Granulocytes Pct Auto 0.9 %; Lymphocytes Percent Auto 4.9 % (20-44); Mean Corpuscular HGB Conc 33 gm/dL (32-36); Mean Corpuscular Hemoglobin 28 pg (26-34); Mean Corpuscular Volume 87 fL (80-100); Monocytes Percent Auto 7.3 % (0.0-11.0); Neutrophils Percent Auto 85.6 % (42.0-72.0); Partial Thromboplastin Time* 34 Seconds (23-33); Platelet Count* 184 K/uL (140-440); RDW Coefficient of Variation % 13.5 % (11.5-15.5); Red Blood Count 2.86 m/uL (4.30-5.90); White Blood Count* 9.24 K/uL (4.50-11.00)
[2024-08-01] MEDS: 0.9 % SODIUM CHLORIDE 500 ML 500 ML IV (14:13)
[2024-08-01 14:14] LABS: Anion Gap 10 mEq/L (7-15); Blood Urea Nitrogen* 22 mg/dL (7-30); Carbon Dioxide* 24 mmol/L (20-32); Creatinine* 0.7 mg/dL (0.5-1.5); Estimated Glomerular Filt Rate 97 ml/min
[2024-08-01 14:15] LABS: Alanine Aminotransferase* 29 U/L (4-50); Alkaline Phosphatase* 67 U/L (40-150); Aspartate Amino Transferase* 42 U/L (12-35); Bilirubin Direct* 0.3 mg/dL (0.0-0.5); Bilirubin Total* 0.5 mg/dL (0.1-1.5); Calcium* 9.7 mg/dL (8.4-10.6); Glucose* 123 mg/dL (60-115); Magnesium* 1.3 mg/dL (1.5-2.6); Total Protein* 6.5 g/dL (6.0-8.3)
[2024-08-01] MEDS: MAGNESIUM IV 2 GM/50 ML PIGGYBACK IVPB (14:15)
[2024-08-01 14:17] LABS: Slide Review Reflex No
[2024-08-01 14:18] LABS: C Reactive Protein* 3.5 mg/dL (0.5-1.0)
--- NOTE | 2024-08-01 14:39 | CRLHL7_ITS ---
For Patients: As a result of the 21st Century Cures Act, medical imaging exams and procedure reports are released immediately into your electronic medical record. You may view this report before your referring provider. If you have questions, please contact your health care provider. Indication: Possible pneumonia, blood in stool Technique: Volumetric multidetector CT images of the abdomen and pelvis were obtained before and after the administration of intravenous contrast using a angiographic protocol with delayed imaging and maximum intensity projections. 95 cc Isovue 370 low osmolar intravenous contrast Comparison: None available. Findings: There are calcified basilar nodules similar to previous exam with demonstration of additional nodular airspace opacities within the medial left lung base from comparison. Mild hepatomegaly and hepatic steatosis. No focal abnormality. The portal vein is patent. There is minimal layering calculi within the gallbladder lumen. No evidence of significant pericolonic inflammatory changes. There is no significant common biliary ductal dilatation or abrupt cut off. The spleen is normal in enhancement and size. Postoperative changes of the stomach status post sleeve gastrectomy with demonstration of surgical clips and/or vascular coils within the right upper quadrant adjacent to the head of the pancreas with minimal associated beam hardening artifact. There are calcified nodules throughout the pancreas consistent with likely sequela of chronic pancreatitis changes. No acute pancreatic inflammatory change. The adrenal glands are unremarkable. Cystic changes of the kidneys with otherwise preserved corticomedullary differentiation. No evidence of distal obstructive uropathy. Mild nonspecific thickening of the urinary bladder. Generally decompressed appearance of the central small bowel with [id number] stool in the proximal colon. There scattered radiopacities throughout the bowel likely representing ingestion of radiopaque material. No obvious areas of contrast blush or inflammation to suggest site of GI bleeding. The appendix is not visualized. There is no significant mesenteric, retroperitoneal, or pelvic sidewall lymph nodes. The aorta is nonaneurysmal with moderate scattered atherosclerotic calcification. Minimal atherosclerotic calcification of branch vessels including the celiac axis superior mesenteric artery, renal artery takeoffs and inferior mesenteric arteries are appreciated without evidence of high-grade narrowing. Normal runoff into the bilateral iliac vessels. The solid pelvic viscera are grossly unremarkable. There is no free fluid or free air. There is a small fat containing umbilical hernia. The lumbar vertebral body heights are grossly stable from previous exam with moderate degenerative disc disease with endplate Schmorl`s defects. There is moderate to severe facet arthrosis. No evidence of displaced fracture. Impression: 1. Demonstration of scattered radiopacities throughout the small bowel and colon likely representing ingestion of radiopaque material. No obvious enhancement or contrast blush to suggest site of hemorrhage. 2. Stable postoperative changes status post sleeve gastrectomy. Coil embolization of a right upper quadrant arteries appreciated which casts mild beam hardening artifact. 3. Stable cystic changes of the kidneys with otherwise preserved corticomedullary differentiation. 4. No other acute intra-abdominal abnormalities are appreciated. Please note that all CT scans at this facility use dose modulation, iterative reconstruction, and/or weight-based dosing when appropriate to reduce radiation dose to as low as reasonably achievable. Dictated by Reid Fabian MD @ 08/01/2024 3:50:31 PM (Electronically Signed)
--- NOTE | 2024-08-01 14:40 | CRLHL7_ITS ---
For Patients: As a result of the Century Cures Act, medical imaging exams and procedure reports are released immediately into your electronic medical record. You may view this report before your referring provider. If you have questions, please contact your health care provider. Indication: Possible pneumonia, blood in stool Technique: Volumetric multidetector CT images of the chest were obtained after the administration of IV contrast. 95 cc Isovue 370 low osmolar intravenous contrast Comparison: CT chest September 25, 2022 Findings: The thoracic inlet and thyroid gland are unremarkable. The thoracic aorta is nonaneurysmal. Somewhat limited evaluation of the pulmonary arteries due to contrast bolus timing. No obvious central filling defect. There is no mediastinal, hilar or axillary adenopathy. There is minimal central bronchial thickening similar to previous exam. Mildly patulous esophagus is appreciated. There are nodular airspace opacities within the central right upper and peripheral right upper lobes some of which have a masslike appearance measuring up to 1.9 centimeters in greatest dimension on series 5, image 42. Stable appearance of calcified nodules within the bilateral lower lobes from remote comparison exam with associated basilar atelectasis and parenchymal scar. There is no pneumothorax or pleural effusion. No other pulmonary mass lesions are identified. The partially visualized upper abdomen demonstrates cystic changes of the kidneys and prior postoperative changes of the stomach status post prior sleeve gastrectomy. The thoracic vertebral body heights are grossly maintained with diffuse flowing anterior osteophytosis. No evidence of significant spondylolisthesis or displaced fracture. Impression: 1. Demonstration of developing nodular/masslike airspace opacities within the predominantly right upper lobe with the largest nodular opacity measuring up to 1.9 centimeters. Findings may represent developing atypical infiltrates. Recommend follow-up to document clearance. 2. Stable calcified pulmonary nodules and inflammatory changes within the peripheral lower lobes from previous exam. 3. No other acute cardiopulmonary abnormality is identified. Please note that all CT scans at this facility use dose modulation, iterative reconstruction, and/or weight-based dosing when appropriate to reduce radiation dose to as low as reasonably achievable. Dictated by Reid Fabian MD @ 08/01/2024 3:35:08 PM (Electronically Signed)
--- OUTSIDE RECORDS SUMMARY | 2024-08-01 14:53 | XMS_ITS | Clinical Summary ---
Author Organization [employer] [facility] Address Formerly [facility], [facility] [place] [address] Care Team Providers Care Health Consultant Name Role Phone VoteJose castillo MD Primary Care Provider + [facility] Unavailable [phone] Micki Mckenzie BANKING OFFICER Unavailable [facility] Unavailable Allergies Active Allergy Reactions Criticality Noted [...] type, unspecified whether angina present, unspecified whether iqugmiut or transplanted heart Chew 1 Tablet (81 [...] Department Care Team Description 07/31/2024 Patient Outreach [facility] Care Management - Advanced Care Team [address] [place] [address] Micki Mckenzie LSW Complex Care Management (Engagement outreach ) 07/30/2024 3:20 PM CDT Office Visit [facility] [address] [address] Jose Linares MD Follow Up (Low magnesium, feeling dizzy) 07/29/2024 Travel 07/28/2024 Telephone [facility] [address] [facility] [address] Kandy Webb RN Home Care (Home care services) 07/27/2024 Orders Only [facility] Scanner 1 scan: (1-Ord) [place], RESULTS, 07/27/2024 07/27/2024 Home Care Visit [facility] [address] [place] [address] Renetta Ybarra RN NOT TAKEN UNDER HOME CARE 07/26/2024 Refill [facility] [address] [place] [address] Jose Linares MD Refill Request (Metoprolol Succinate) 07/25/2024 Home Care Visit [facility] [address] [place] [address] Renetta Ybarra, CHRIS CARE COORDINATION 07/25/2024 Home Care Visit [facility] [address] [place] [address] Kandy Webb RN CARE COORDINATION 07/24/2024 Patient Outreach [facility] Care Management - Care Management Navigation/[facility] [address] [place] [address] Micki Isbell Error-please disregard 07/24/2024 Telephone [facility] [address] [place] [address] Jose Linares MD returning call (Erin is the patient's ex and who the patient stay with. Erin is returning a call from this morning to the patient.) 07/24/2024 Telephone [facility] [address] [place] [address] Jose Sousa MD Abnormal Lab Results 07/23/2024 9:35 AM CDT Office Visit [facility] [address] [place] [address] Jose Linares MD ER Follow up ([place], abdominal pain, 07/05/24 and 07/10/24, [facility]) 07/23/2024 Orders Only [facility] Scanner 1 scan: (1-Ord) [facility], LAB RESULT, 07/23/2024 07/23/2024 Orders Only [facility] Scanner 1 scan: (1-Ord) [facility], MULTIPLE LABS, 07/23/2024 07/22/2024 Travel 07/10/2024 2:00 PM CDT Ancillary Procedure [facility] [address] [place] [address] 07/10/2024 Lab Requisition [facility] [phone] Gely Nina MD 07/09/2024 Orders Only [facility] Scanner 1 scan: (1-Ord) [place], CT ABD PELVIS W/ CON, 07/09/2024 07/09/2024 Orders Only [facility] Scanner 1 scan: (1-Ord) [facility], CHEST 2VIEWS, 07/09/2024 07/05/2024 Orders Only [facility] Scanner 1 scan: (1-Ord) [facility], CT ABDOMEN PELVIS W CON, 07/05/2024 06/26/2024 Refill [facility] [address] [place] [address] VoJose emnezes MD Refill Request (Citalopram) from Last 3 Months Immunizations Immunization Administration Dates Next Due AMB Influenza, IIV3 (Age >=3 years)(Flu Clinic Only) 02/26/2013 COVID-19 vaccine (Moderna 100mcg/0.5mL) PF, MDV 10/28/2021,08/26/2021,02/20/2021,07/27,06/29/2020 COVID-19 vaccine (Geeklist-Bio NTech 30mcg/0.3mL) 12YO+ BIVALENT PF, MDV 09/05/2022 COVID-19 vaccine (Geeklist-Bio NTech 30mcg/0.3mL) PF, MDV 08/05/2022,10/28/2021 Influenza A [...] on file Legal Sex 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 Gender Identity Not on file Sexual Orientation Not on file Occupation Industry Job Start Date Job End Date Not on file Not on file Not on 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 Not on file Not [...] Description 08/07/2024 1:40 PM CDT Office Visit [facility] [address] [place] [address] VotelJose MD [address] [place] [address] Health Maintenance Due Date Last Done Comments [...] history exists Medical Devices Implanted Type Area Planning Supervisor Device Identifier Shelf Expiration Date Model / Serial / Lot Amplatz Ureteral Stent Set Implanted:Qty: 1 on 06/02/2013 at [facility] [id number]-10.2-2 4-AMP- / / Description:AMPLATZ URETERAL STENT [...] AM CDT SCAN-CT INTERPRETATION 5 12:00 AM TOOL SHAPER SET UP OPERATOR LIPID PANEL W REFLEX MEASURED LDL Routine 12/13/2023 1:45 PM CDT Hyperlipidemia CTA CHEST ABDOMEN PELVIS AORTIC DISSECTION W STAT 10/26/2022 5:45 PM CDT COLONOSCOPY DIAGNOSTIC Routine 2 6:56 AM TOOL SHAPER SET UP OPERATOR Screening for colon cancer from Last 3 [...] Jose Linares MD HEMATOLOGY Final Re sult [facility] [address] [place] [address], [place] [phone] [facility] [address] [place] [address] * (ABNORMAL) MAGNESIUM (07/30/2024 4:43 PM CDT) Only the most recent of2 resultswithin the time period is included. MAGNESIUM 1.3(L) 1.5 - 2.5 mg/dL [facility] Blood BLOOD SPECIMEN / Unknown 07/30/2024 4:43 PM CDT 07/30/2024 4:44 PM CDT Jose Linares MD CHEMISTRY Final Re sult [facility] [address] [place] [address], [facility] [address] [place] [address] * (ABNORMAL) BASIC METABOLIC PANEL (07/30/2024 4:43 [...] CHEMISTRY Final Re sult Performing Organization Address [facility]/ZIP Co de Phone Number [facility] [address] [place] [address], [place] [phone] [facility] [address] [place] [address] * SCAN-LABORATORY REPORT (07/27/2024 12:00 AM CDT) Only the most recent of3 resultswithin the time period is included. Scanner OTHER Final Result * FERRITIN (07/23/2024 1:28 PM CDT) [facility] FERRITIN 25 24 - 380 ng/mL [facility] BLOOD SPECIMEN / Unknown 07/23/2024 1:28 PM CDT 07/23/2024 1:28 PM CDT Jose Linares MD CHEMISTRY Final Re sult Performing Organization Address [facility] Co de Phone Number [facility] [address] [address], [place] [phone] [facility] [address] [place] [address] * (ABNORMAL) CBC AND DIFFERENTIAL (07/23/2024 9:39 AM CDT) [facility] WHITE BLOOD CELL COUNT 5.3 3.8 - [...] MD HEMATOLOGY Final Re sult [facility] [address] [place] [address], [facility] [address] [place] [address] * HEMOGLOBIN A1C MONITORING (POCT) (07/23/2024 9:38 AM CDT) POC HEMOGLOBIN A1C 4.8 <6.0 % OF TOTAL HGB [facility] Comment: Any point of care results exhibiting inconsistency with the patient's clinical status should be repeated using a different testing method. Blood BLOOD SPECIMEN / Unknown 07/23/2024 9:38 AM CDT 07/23/2024 9:38 AM CDT us Jose Linares MD CHEMISTRY Final Re sult [facility] [address] [place] [address], [facility] [address] [place] [address] * ECHO TTE COMPLETE WO CONTRAST (07/10/2024 [...] BSA: 2.23 m Weight: 114.00 kg Tech: [facility] Referring MD: GELY NINA Site: [facility] Reading Location: MOBILE Patient Location: [...] . This study was interpreted by an [facility] accredited facility. CC: HIM (med records) [facility], Med/Surg - IP [facility]. Final Procedure Note Greg Ford MD - 07/10/2024 ECHOCARDIOGRAM NICKY TRUJILLO : 1950 74 years Study Date: 07/10/2024 1:51:22 PM Gender: M BP: 116/62 mmHg Height: 170.00 cm BSA: 2.23 m Weight: 114.00 kg Tech: [facility] Referring MD: GELY NINA Site: [facility] Reading Location: MOBILE [...] [facility] accredited facility. CC: HIM (med records) [facility], Med/Surg - IP [facility]. Final Gely Nina MD ECHO ORD Final Result * LAB TRACKING EVENT (07/10/2024 7:00 AM CDT) Other (Other) Client Collect / Unknown 07/10/2024 7:00 AM CDT 07/10/2024 2:44 PM CDT Gely Nina MD LAB BILL ONLY Final Result [facility] [address] [place] [address], * (ABNORMAL) CBC WITH AUTO DIFFERENTIAL (07/10/2024 7:00 AM CDT) WHITE BLOOD COUNT 4.7 4.5 - 11.0 thou/cu mm 07/10/2024 2:59 PM CDT [facility] RED BLOOD COUNT 2.95(L) 4.30 - 5.90 mil/cu mm 07/10/2024 2:59 PM CDT [facility] HEMOGLOBIN 8.5(L) 13.5 - 17.5 g/dL 07/10/2024 2:59 PM CDT [facility] HEMATOCRIT 25.1(L) 37.0 - 53.0 % 07/10/2024 2:59 PM CDT [facility] MCV 85 80 - 100 fL 07/10/2024 2:59 PM CDT [facility] MCH 28.8 26.0 - 34.0 pg 07/10/2024 2:59 PM CDT [facility] MCHC 33.9 32.0 - 36.0 g/dL 07/10/2024 2:59 PM CDT [facility] RDW 13.5 11.5 - 15.5 % 07/10/2024 2:59 PM CDT [facility] PLATELET COUNT 141 140 - 440 thou/cu mm 07/10/2024 2:59 PM CDT [facility] MPV 13.0(H) 6.5 - 11.0 fL 07/10/2024 2:59 PM CDT [facility] NRBC 0.0 % 07/10/2024 2:59 PM CDT [facility] ABS NRBC 0.0 thou /cu mm 07/10/2024 2:59 PM CDT [facility] % NEUT 45.7 % 07/10/2024 2:59 PM CDT [facility] % LYMPH 35.8 % 07/10/2024 2:59 PM CDT [facility] % MONO 10.0 % 07/10/2024 2:59 PM CDT [facility] % EOS 7.0 % 07/10/2024 2:59 PM CDT [facility] % BASO 1.3 % 07/10/2024 2:59 PM CDT [facility] % IMMATURE GRAN (METAS,MYELOS,CT OS) 0.2 % 07/10/2024 2:59 PM CDT [facility] ABSOLUTE NEUTROPHILS 2.1 1.7 - 7.0 thou/cu mm 07/10/2024 2:59 PM CDT [facility] ABSOLUTE LYMPHOCYTES 1.7 0.9 - 2.9 thou/cu mm 07/10/2024 2:59 PM CDT [facility] ABSOLUTE MONOCYTES 0.5 <0.9 thou/cu mm 07/10/2024 2:59 PM CDT [facility] ABSOLUTE EOSINOPHILS 0.3 <0.5 thou/cu mm 07/10/2024 2:59 PM CDT [facility] ABSOLUTE BASOPHILS 0.1 <0.3 thou/cu mm 07/10/2024 2:59 PM CDT [facility] ABSOLUTE IMMATURE GRANULOCYTES(MET ,MYELOS,PROS) 0.0 <0.3 thou/cu mm 07/10/2024 2:59 PM CDT [facility] Blood BLOOD SPECIMEN / Unknown Client Collect / Unknown 07/10/2024 7:00 AM CDT 07/10/2024 2:44 PM CDT us Gely Nina MD HEMATOLOGY Final Result [facility] [address] [place] [address], * PERIPHERAL BLD MORPHOLOGY (07/10/2024 7:00 AM CDT) Case Report Special Hematology Report Case: [id number] Authorizing Provider: Gely Nina MD Collected: 07/10/2024 0700 [facility]ing [facility] Received: 07/10/2024 1600 Pathologist: Charles Sandoval MD Specimen: Peripheral Blood 07/11/2024 3:51 PM CDT [facility] Final Diagnosis PERIPHERAL BLOOD: 1. Moderate normocytic anemia with poikilocytosis 2. See comment 07/11/2024 3:51 PM CDT [facility] at 1551 CDT Comment The features of the anemia are nonspecific. The differential includes iron deficiency, anemia of chronic disease, anemia of chronic renal insufficiency, anatomic blood loss and medication effect. There is no morphologic evidence of hemolysis. This case was also reviewed by Marni Veras [place], MS ([facility]). 07/11/2024 3:51 PM CDT [facility] LABORAT[facility]-C ENTRAL LABORATORY Clinical Information The the patient is a 74-year-old male. Per CBC scan: Chronic anemia Per EPIC: Additional history includes hypertension, postoperative hypotensive ASHD, chronic systolic CHF, diabetes, SP gastric bypass, and BPH. 07/11/2024 3:51 PM CDT [facility] CBC and Differential HEMATOLOGY PARAMETERS Tested at: [facility] RESULTS EXPECTED VALUES WBC: 4.7 4.5-12x3209/cumm RBC: 2.95 4.30-5.90 mil/cumm DECREASED HGB: 8.5 13.5-17.5 gm/di DECREASED HCT: 25.1 37-53% DECREASED MCV: 85.0 80-100 fl NORMOCYTIC MCH: 28.8 26-34 pg MCHC: 33.9 32-36 gm/dl NORMOCHROMIC RDW: 13.5 11.5-15.5% PLT: 141 140-817w3134/uL MPV: 13.0 6.5-11 fl ELEVATED Retic: 1.5 0.5-1.5% Differential Tested at: [facility] Absolute (%) Expected (%) (x10*9/L) (x10*9/L) Neutrophils: 2.11.7 (44.6) 1.7-7.0 (42-72%) Lymphocytes: 1.70.9 (36) 0.9-2.9 (20-44%) Monocytes: 0.5 (10.5) <0.9 (0-11%) Eosinophils: 0.3 (6.3) <0.5 (0-2%) Basophils: 0.1 (2.1) <0.3 (<3.0%) 07/11/2024 3:51 PM CDT [facility]ORATORY-C ENTRAL LABORATORY Reticulocytes Retic: 1.5 0.5-1.5% 07/11/2024 3:51 PM CDT [facility] Microscopic Description The final diagnosis is based on microscopic examination of an appropriately stained blood smear. 07/11/2024 3:51 PM CDT [facility] Additional Information Interpreted at [facility] - [address], [place] [address] 07/11/2024 3:51 PM CDT [facility] Blood (Peripheral Blood) 07/10/2024 7:00 AM CDT 07/10/2024 4:00 PM CDT Gely Nina MD HEMATOLOGY Final Result Performing Organization Address [facility] Co de Phone Number [facility] [address] [phone], [place] * RETICULOCYTES (07/10/2024 7:00 AM CDT) RETIC% 1.5 0.5 - 1.5 % 07/10/2024 2:59 PM CDT [facility] RETIC (ABSOLUTE) 0.04 0.03 - 0.08 mil/cu mm 07/10/2024 2:59 PM CDT [facility] Blood BLOOD SPECIMEN / Unknown Client Collect / Unknown 07/10/2024 7:00 AM CDT 07/10/2024 2:44 PM CDT Gely Nina MD HEMATOLOGY Final Result Performing Organization Address [facility] Co de Phone Number [facility] [address] [place] [address], [place] * SCAN-RADIOLOGY REPORT (07/09/2024 12:00 AM [...] - 199 mg/dL 12/13/2023 10:46 PM CDT [facility] Comment: Cholesterol, Total Reference Ranges Desirable <200 mg/dL Borderline 200-239 mg/dL High >=240 mg/dL TRIGLYCERIDES 96 <150 mg/dL 12/13/2023 10:46 PM CDT [facility] HDL CHOLESTEROL 54 >40 mg/dL 10:46 PM CDT [facility] NON-HDL CHOLESTEROL 80 <145 mg/dl 12/13/2023 10:46 PM CDT [facility] CHOL/HDL RATIO 2.48 <4.50 12/13/2023 10:46 PM CDT [facility] LDL CHOLESTEROL 61 <=130 mg/dL 12/13/2023 10:46 PM CDT [facility] VLDL CHOLESTEROL 19 <=30 mg/dL 12/13/2023 10:46 PM CDT [facility] PROVIDER ORDERED STATUS RANDOM 12/13/2023 10:46 PM CDT [facility] Blood BLOOD SPECIMEN / Unknown Venipuncture / Unknown 12/13/2023 1:45 PM CDT 12/13/2023 1:45 PM CDT us Jose Linares MD CHEMISTRY Final Re sult [facility] [address] [place] [id number], [place] * CTA CHEST ABDOMEN PELVIS AORTIC [...] CHEST ABDOMEN PELVIS AORTIC DISSECTION W LOCATION: [facility] DATE: 10/26/2022 INDICATION: Anemia. GI bleed. COMPARISON: 01/10/2022 TECHNIQUE: CT angiogram chest abdomen pelvis during arterial phase of injection of IV contrast. 2D and 3D MIP reconstructions were performed by the seating and mobility technologist. Dose reduction techniques were used. CONTRAST: [...] CHEST ABDOMEN PELVIS AORTIC DISSECTION W LOCATION: [facility] DATE: 10/26/2022 INDICATION: Anemia. GI bleed. COMPARISON: 01/10/2022 TECHNIQUE: CT angiogram chest abdomen pelvis during arterial phase ofinjection of IV contrast. 2D and 3D MIP reconstructions were performed bythe seating and mobility technologist. Dose reduction techniques were used. CONTRAST: [...] ult * COLONOSCOPY DIAGNOSTIC (04/03/2022 12:00 AM TOOL SHAPER SET UP OPERATOR) Jose Linares MD GI PROCEDURE ORD Final [...] 08/03/2016 08/03/2016 Insurance BLUE CROSS MEDICARE ADVANTAGE [facility] Advance Directives * Full Code (Latest Code [...] Not DiscussedPer Advance Care Plan Care Teams Health Consultant Relationship Specialty Start Date End Date Votel, Jose Bateman MD [address] [place] [address] PCP - General Family Practice 08/17/11 [facility], [facility] [address] [place] [address] 07/23/24 Micki Mckenzie, BANKING OFFICER [address] [place] [address] Washhouse Worker 07/30/24 [facility] [address] [address] 07/31/24
--- OUTSIDE RECORDS SUMMARY | 2024-08-01 14:53 | XMS_ITS | Clinical Summary ---
Author Organization [facility] Address [address] [place] [address]. [place] [address] Care Team Providers Care Degreaser Operator Name Role Phone Milagros Jose Veloz Primary Care Provider [phone] Allergies Active Allergy Reactions Criticality Noted Date [...] on file Legal Sex Male 5:05 AM ASSESSMENT DIRECTOR Gender Identity Not on file Sexual Orientation Not on file Last Filed Vital Signs Vital Sign Reading Time Taken Comments Blood Pressure 130/60 05/13/2022 3:23 PM ASSESSMENT DIRECTOR Pulse 76 05/13/2022 3:23 PM ASSESSMENT DIRECTOR Temperature 37.2 C (98.9 F) 05/13/2022 3:23 PM ASSESSMENT DIRECTOR Respiratory Rate 18 05/13/2022 3:23 PM ASSESSMENT DIRECTOR Oxygen Saturation 91% 05/13/2022 3:23 PM ASSESSMENT DIRECTOR Inhaled Oxygen Concentration - - Weight 132.3 kg (291 lb 11.2 oz) 05/09/2022 5:50 AM ASSESSMENT DIRECTOR scale Height 167.6 cm (5' 6) 05/09/2022 5:50 AM ASSESSMENT DIRECTOR s tated Body Mass Index 47.08 05/09/2022 5:50 AM ASSESSMENT DIRECTOR Plan of Treatment Health Maintenance Due Date [...] BY METER Routine 05/13/2022 7:57 AM ASSESSMENT DIRECTOR from Last 3 Months or Most Recently Relevant to Health Maintenance Results * (ABNORMAL) Glucose by meter (05/13/2022 7:57 AM ASSESSMENT DIRECTOR) GLUCOSE BY METER POCT 111(H) 70 - 99 mg/dL 05/13/2022 8:05 AM ASSESSMENT DIRECTOR [facility] POCT RESULTS Blood, Capillary BLOOD SPECIMEN / Unknown 05/13/2022 7:57 AM ASSESSMENT DIRECTOR 05/13/2022 8:05 AM ASSESSMENT DIRECTOR us Lencho Walsh MD LAB - BEAKER POCT Final Re sult [facility] POCT RESULTS [address] [place] [address] from Last 3 Months or Most Recently Relevant to Health Maintenance Insurance MEDICARE [facility] MEDICARE ADVANTAGE Advance Directives For more information, please contact: [phone] * Full Code (Latest Code Status on [...] 9:17 PM 02/06/2016 1:05 PM Care Teams Degreaser Operator Relationship Specialty Start Date End Date Jose Linares: [phone] PCP - General Family Practice 02/02/16
[2024-08-01 15:41] LABS: Lactate Sepsis 2 Hour 1.4 mmol/L (0.5-1.9)
[2024-08-01] MEDS: PANTOPRAZOLE SODIUM 40 MG INJ IVP (16:16)
[2024-08-01 16:27] LABS: PCR FLU A Negative PCR FLU A (Negative); PCR FLU B Negative PCR FLU B (Negative); PCR RSV Negative PCR RSV (Negative); SARS PCR* Negative SARS-CoV-2 (Negative)
--- NOTE | 2024-08-01 17:36 | PM.IMHP1 ---
Assessment and Plan Assessment and plan (1) GI bleed: Problem comment: Currently with heme-positive melanotic stool, low blood pressure. Previous history of chronic iron deficiency anemia on low-dose oral iron with multivitamin. Status: Acute (2) Hypomagnesemia: Problem comment: Continues with low magnesium despite oral replacement. Question noncompliance Status: Acute (3) Chronic anemia: Problem comment: Longstanding history of anemia with hemoglobin of 8 to 9 in the past year Status: Acute (4) Hypotension: Problem comment: Had hypotension on recent admission which resolved and was normotensive through his hospital stay. Now hypotensive again. Multiple blood pressure medications have been stopped in the last week including stopping amlodipine, spironolactone and reduction of lisinopril dose. Status: Acute (5) Medical non-compliance: Problem comment: -Patient reports that he is not taking his diuretic daily. He is not taking his magnesium at all. His ex- is concerned that he does not reliably take any of his medications. She tried to help him by setting up a pillbox but he was not using it regularly. In the last couple days she has been supervising his medications Status: Acute (6) Hyponatremia: Problem comment: Chronic recurrent problem. Etiology uncertain. Recent admission with hyponatremia was thought to be acute on chronic with poor oral intake leading up to hospitalization Status: Acute (7) Unintentional weight loss: Problem comment: Previously reported significant weight loss. Records I have reviewed show 1 kg weight loss in the last 7 months Status: Acute Plan Patient is admitted the hospital for evaluation of what is probably acute GI bleeding with hypotension and blood loss anemia. He would benefit from upper endoscopy. Outpatient records from yesterday indicate this should probably be done by a subspecialist sprinkler installer possibly added tertiary care hospital. I spoke with Dr. Barbour of [facility]. She recommends that he undergo upper endoscopy at [facility] for evaluation of upper GI bleeding. Will transfer him when a bed becomes available. Total Time Spent Total Time Spent: Total time spent today is 80 minutes in coordination of care, reviewing outside records and discussing with patient and other providers ongoing evaluation management. Hospitalist- H&P: HPI History of Present Illness Date Seen: 08/01/24 Chief complaint: Weakness, GI bleed Narrative: Sulaiman Trujillo is a 74 year old male with multiple medical problems readmitted to the hospital with weakness and low blood pressure. He was in the bathroom today and too weak to stand. His legs got very weak when he was standing and they gave out. He has been staying with his ex- who helped him to the floor when his legs gave out. He was hospitalized here from 07/24/2024 to 07/27/2024 with hyponatremia, hypo magnesemia, chronic stable iron deficiency anemia and weakness. He was discharged to home with a hemoglobin of 8.4 a sodium of 130 and a magnesium of 1.5. His low sodium was thought due to poor oral intake and possibly related to spironolactone therapy. His ex- noted that he had a black stool. He reports his stools have been chronically dark. He does take a multivitamin with iron supplement for his chronic iron deficiency. Patient reports no new problems with chest pain, shortness of breath, fever. He does report a new sore throat. He was eating okay for the 1st couple days at home but in the last day has lost his appetite. He has a longstanding history of gastrointestinal problems. Yesterday he saw a sprinkler installer at [facility] with the following: This is a 74M past medical history chronic pancreatitis, type 2 diabetes, PREETI, morbid obesity, NSTEMI and TIA 08/2022 on dual antiplatelet therapy, hypertension, BPH, gastric sleeve, duodenal tubulovillous adenoma with high-grade dysplasia, who presents to clinic for evaluation regarding abdominal symptoms and anemia. ? Patient has a variety of somewhat nebulous symptoms which is what he and his say they are coming in for. He reports loose bowel movements 2-3 times per day. Rarely notices drops of blood in the stool. His says that he is reluctant to eat and complains of nausea. The patient tells me he does not have any major abdominal pain after eating or vomiting. His says he has a lot of phlegm with urping around the time of eating. ? He was hospitalized recently with hyponatremia, sodium around 116 and discharged around 127. He had been off his torsemide and he had been taking more free water with less food or solute intake per notes. His is worried that the not eating contributed to this presentation. He also reports that prior to his hyponatremia episode he was seen in the ER and was diagnosed with diverticulitis based on CT scan. ? Regarding the anemia, he has not noticed any major blood in the stool or black tarry stool. He has been anemic since 2004. Baseline hemoglobin has in the 8-9's for the last 2 years and continues to be around 8. ? Notably, he does report a history of a partial colonic resection for an unresectable colon polyp many years ago. ? Family history: father of CRC ? EGD 12/2022: 18mm duodenal tubulovillous adenoma, repeat in 4 months recommnended EGD 09/2022 (for bleeding): Alonso's esophagus, cratered duodenal ulcer EGD 09/2022: 42mm pedunculated and sessile polyp arising from layer 1 on EUS. Removed piecemeal Colonoscopy 03/2022 ([facility]): ileocolonic anastomosis, 4mm transverse polyp ? Assessment/Plan # Detail Type Description 1. Assessment Duodenal adenoma (D13.2). 2. Assessment History of diverticulitis (Z87.19). 3. Assessment Hyponatremia (E87.1). 4. Assessment History of colon resection (Z90.49). 5. Assessment Chronic anemia (D64.9). ? Detail Type Description Impression Issues addressed at this visit:1. Chronic anemia: No acute drop in hemoglobin recently so less concern for active bleeding. Probably multifactorial anemia due to anemia of chronic disease, possible nutritional deficiencies (will test for these today), slow GI blood loss is possible, etc. unlikely but possible would be recurrence of duodenal adenoma and/or colorectal cancer causing anemia, we should evaluate for these.2. History of tubulovillous duodenal adenoma: Overdue for follow-up. The polyp was incompletely resected on the first attempt. Needs endoscopy with advanced GI.3. History of colon resection for unresectable colon polyp: This occurred years ago. Last colonoscopy several years ago only found 1 tiny polyp. Probably needs another colonoscopy to look for more polyps/cancer/causes of diarrhea.4. Nausea, poor p.o. intake, loose stool: Unclear cause. Probably multifactorial related to his comorbidities. The above pathology contributing to the symptoms is a possibility we will evaluate as above5. Possible history of diverticulitis -per patient was diagnosed on CT scan recently. Another reason to do a colonoscopy [facility] Medical History (Updated 08/01/24 @ 18:03 by Rigoberto Nina MD) Unspecified sleep apnea ?G47.30 - Sleep apnea, unspecified (ICD-10) Steroid-induced hyperglycemia ?R73.9 - Hyperglycemia, unspecified (ICD-10) ?T38.0X5A - Adverse effect of glucocorticoids and synthetic analogues, initial encounter (ICD-10) MRSA bacteremia (11/04/13) ?R78.81 - Bacteremia (ICD-10) ?B95.62 - Methicillin resistant Staphylococcus aureus infection as the cause of diseases classified elsewhere (ICD-10) Morbid obesity (08/03/10) ?E66.01 - Morbid (severe) obesity due to excess calories (ICD-10) Kidney stone (06/21/16) ?N20.0 - Calculus of kidney (ICD-10) Hyperlipidemia ?E78.5 - Hyperlipidemia, unspecified (ICD-10) Hx of colonic polyps ?Z86.0100 - Personal history of colon polyps, unspecified (ICD-10) Dental abscess (02/02/16) ?K04.7 - Periapical abscess without sinus (ICD-10) Benign non-nodular prostatic hyperplasia with lower urinary tract symptoms (06/21/16) ?N40.1 - Benign prostatic hyperplasia with lower urinary tract symptoms (ICD-10) 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) ?K22.70 - 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 (ICD-10) ASHD (arteriosclerotic heart disease) (08/28/14) ?I25.10 - Atherosclerotic heart disease of [place] coronary artery without angina pectoris (ICD-10) Aortic stenosis (08/28/14) ?I35.0 - Nonrheumatic aortic (valve) stenosis (ICD-10) Adenomatous duodenal polyp (04/06/22) ?D13.2 - Benign neoplasm of duodenum (ICD-10) Acute blood loss anemia (10/26/22) ?D62 - Acute posthemorrhagic anemia (ICD-10) Ureteral stone (01/28/09) ?N20.1 - Calculus of ureter (ICD-10) Slowing of urinary stream (03/16/22) ?R39.198 - Other difficulties with micturition (ICD-10) Pituitary adenoma (12/13/23) ?D35.2 - Benign neoplasm of pituitary gland (ICD-10) History of kidney stones (05/29/16) ?Z87.442 - Personal history of urinary calculi (ICD-10) Hemorrhagic shock (10/29/22) ?R57.8 - Other shock (ICD-10) SKYLER (acute kidney injury) (10/29/22) ?N17.9 - Acute kidney failure, unspecified (ICD-10) Acute on chronic diastolic CHF (congestive heart failure) (05/16/23) ?I50.33 - Acute on chronic diastolic (congestive) heart failure (ICD-10) Acute GI bleeding (10/26/22) ?K92.2 - Gastrointestinal hemorrhage, unspecified (ICD-10) Alonso esophagus ?K22.70 - 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 (ICD-10) Anemia ?D64.9 - Anemia, unspecified (ICD-10) Atrial flutter with rapid ventricular response ?I48.92 - Unspecified atrial flutter (ICD-10) Gastritis ?K29.70 - Gastritis, unspecified, without bleeding (ICD-10) Diverticulitis ?K57.92 - Diverticulitis of intestine, part unspecified, without perforation or abscess without bleeding (ICD-10) NSTEMI (non-ST elevated myocardial infarction) ?I21.4 - Non-ST elevation (NSTEMI) myocardial infarction (ICD-10) Polyp of duodenum ?K31.7 - Polyp of stomach and duodenum (ICD-10) Sinus tachycardia ?R00.0 - Tachycardia, unspecified (ICD-10) Heart failure with preserved ejection fraction ?I50.30 - Unspecified diastolic (congestive) heart failure (ICD-10) Hyponatremia ?E87.1 - Hypo-osmolality and hyponatremia (ICD-10) Obstructive sleep apnea ?G47.33 - Obstructive sleep apnea (adult) (pediatric) (ICD-10) Hypokalemia ?E87.6 - Hypokalemia (ICD-10) Noncompliance with medication regimen ?Z91.148 - Patient's other noncompliance with medication regimen for other reason (ICD-10) Type 2 OH (myocardial infarction) ?I21.A1 - Myocardial infarction type 2 (ICD-10) Sepsis associated hypotension ?A41.9 - Sepsis, unspecified organism (ICD-10) ?I95.9 - Hypotension, unspecified (ICD-10) Metabolic encephalopathy ?G93.41 - Metabolic encephalopathy (ICD-10) Acute right-sided weakness ?R53.1 - Weakness (ICD-10) Medical non-compliance ?Z91.199 - Patient's noncompliance with other medical treatment and regimen due to unspecified reason (ICD-10) Unintentional weight loss ?R63.4 - Abnormal weight loss (ICD-10) Atrial arrhythmia ?I49.8 - Other specified cardiac arrhythmias (ICD-10) Abnormal CT of brain ?R90.89 - Other abnormal findings on diagnostic imaging of central nervous system (ICD-10) Episode of gagging ?R19.8 - Other specified symptoms and signs involving the digestive system and abdomen (ICD-10) Seborrhea of face ?L21.9 - Seborrheic dermatitis, unspecified (ICD-10) Nausea ?R11.0 - Nausea (ICD-10) Microcytic anemia ?D50.9 - Iron deficiency anemia, unspecified (ICD-10) Steroid-induced hyperglycemia ?R73.9 - Hyperglycemia, unspecified (ICD-10) ?T38.0X5A - Adverse effect of glucocorticoids and synthetic analogues, initial encounter (ICD-10) Pituitary adenoma with extrasellar extension ?D35.2 - Benign neoplasm of pituitary gland (ICD-10) Benign non-nodular prostatic hyperplasia with lower urinary tract symptoms ?N40.1 - Benign prostatic hyperplasia with lower urinary tract symptoms (ICD-10) ASHD (arteriosclerotic heart disease) ?I25.10 - Atherosclerotic heart disease of [place] coronary artery without angina pectoris (ICD-10) Kidney stones ?N20.0 - Calculus of kidney (ICD-10) Aortic stenosis ?I35.0 - Nonrheumatic aortic (valve) stenosis (ICD-10) MRSA bacteremia ?R78.81 - Bacteremia (ICD-10) ?B95.62 - Methicillin resistant Staphylococcus aureus infection as the cause of diseases classified elsewhere (ICD-10) Postoperative hypotension ?I95.81 - Postprocedural hypotension (ICD-10) Morbid obesity ?E66.01 - Morbid (severe) obesity due to excess calories (ICD-10) Hyperlipidemia ?E78.5 - Hyperlipidemia, unspecified (ICD-10) Abnormal colonoscopy ?R93.3 - Abnormal findings on diagnostic imaging of other parts of digestive tract (ICD-10) Hx of colonic polyps ?Z86.010 - Personal history of colonic polyps (ICD-10) Sleep apnea ?G47.30 - Sleep apnea, unspecified (ICD-10) Malignant melanoma of right upper extremity ?C43.61 - Malignant melanoma of right upper limb, including shoulder (ICD-10) Hypertension ?I10 - Essential (primary) hypertension (ICD-10) Diabetes mellitus type 2 in obese ?E11.69 - Type 2 diabetes mellitus with other specified complication (ICD-10) ?E66.9 - Obesity, unspecified (ICD-10) Surgical History (Updated 08/01/24 @ 17:49 by Rigoberto Nina MD) S/P TURP (status post transurethral resection of prostate) (05/10/22) ?Z90.79 - Acquired absence of other genital organ(s) (ICD-10) Gastric bypass status for obesity (10/29/22) ?Z98.84 - Bariatric surgery status (ICD-10) History of transurethral resection of prostate ?Z98.890 - Other specified postprocedural states (ICD-10) ?Z90.79 - Acquired absence of other genital organ(s) (ICD-10) 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) H/O vasectomy ?Z98.52 - Vasectomy status (ICD-10) S/P skin biopsy ?Z98.890 - Other specified postprocedural states (ICD-10) H/O nephrostomy H/O lithotripsy ?Z98.890 - Other specified postprocedural states (ICD-10) S/P laparoscopic sleeve gastrectomy ?Z98.84 - Bariatric surgery status (ICD-10) History of total right hip arthroplasty ?Z96.641 - Presence of right artificial hip joint (ICD-10) H/O umbilical hernia repair ?Z98.890 - Other specified postprocedural states (ICD-10) ?Z87.19 - Personal history of other diseases of the digestive system (ICD-10) H/O hemorrhoidectomy ?Z98.890 - Other specified postprocedural states (ICD-10) Hx of colonoscopy ?Z98.890 - Other specified postprocedural states (ICD-10) H/O right hemicolectomy ?Z90.49 - Acquired absence of other specified parts of digestive tract (ICD-10) Hx of appendectomy ?Z90.49 - Acquired absence of other specified parts of digestive tract (ICD-10) Family History Father Colon cancer Obesity Sister Diabetes Obesity Mother Heart disease High blood pressure Hyperlipidemia Obesity Stroke Social History Narrative: [place] Requests that we talk with his ex- about current health issues. Son is also actively involved in assisting his care. Wishes to be full code. He does not smoke. What is your current living situation?: I presently have a place to live Problems where you live: no known problems Problems where you live details: n/a - living with ex-spouse during period of illness In the past 12 months, utilities in danger of being shut off: no In past 12 months, lack of transportation kept you from medical appts, meetings, work, or getting things needed for daily living: no In the past 12 mos, have been you worried that your food would run out before you had money to buy more?: never true In the past 12 mos, the food you bought just didn't last and you didn't have money to buy more?: never true Highest level of school completed/degree received: Associate degree: occupational, technical, vocational program Smoking Status: Former smoker What tobacco products do you use: cigarettes Years smoked: 30 Smoking quit date/years: >15 years ago Do you use any of these nicotine containing products: None Second hand tobacco smoke exposure: No How often do you have a drink containing alcohol: never How many standard drinks containing alcohol do you have on a typical day: 1 or 2 How often do you have six or more drinks on one occasion: Never AUDIT-C Alcohol total score: 0 Non-prescribed substance use: denies use Caffeine: Yes (3-4 daily) How often does anyone, including family, friends and others, physically hurt you: never How often does anyone, including family, friends and others, insult or talk down to you: never How often does anyone, including family, friends and others, threaten you with harm: never How often does anyone, including family, friends and others, scream or curse at you: never Do you think of yourself as: straight/heterosexual Gender Identity: male service: No Meds Home Medications and Allergies Home Medications ?Medication ?Instructions ?Recorded ?Confirmed ?Type atorvastatin 40 mg tablet 40 mg PO DAILY 01/10/22 07/24/24 History citalopram 10 mg tablet 10 mg PO DAILY 01/10/22 07/24/24 History metformin 1,000 mg tablet 1,000 mg PO BIDWM 01/10/22 07/24/24 History cholecalciferol (vitamin D3) 25 1,000 unit PO DAILY 01/23/22 07/24/24 History mcg (1,000 unit) tablet pantoprazole 40 mg tablet,delayed 40 mg PO DAILY 01/23/22 07/24/24 History release lisinopril 10 mg tablet 20 mg PO DAILY 09/26/22 07/24/24 History amlodipine 5 mg tablet 5 mg PO DAILY 02/08/24 07/24/24 History spironolactone 25 mg tablet 25 mg PO DAILY 02/08/24 07/24/24 History Allergies Allergy/AdvReac Type Severity Reaction Status Date / Time No Known Drug Allergies Allergy Verified 08/01/24 15:18 Exam Narrative: Exam Narrative: He is alert and appears in no distress. He is oriented to his circumstances. Eyes are normal. Sclerae nonicteric. Oropharynx with small airway. No marked mucosal abnormalities. Neck is supple without mass or adenopathy. Mild tenderness with palpation under the angle of the mandible without adenopathy. Respirations are clear to auscultation. Cardiovascular: S1, S2, regular rate and rhythm. 2/6 systolic ejection murmur. Abdomen: Bowel sounds active. Abdomen is soft without tenderness or mass. External genitalia normal. Extremities without edema. Intact pedal pulses. Chronic venous stasis skin changes on the legs. He moves all 4 extremities well. Const: Vital Signs, click to edit/add: Vital Signs - 24 hr 08/01/24 13:29 08/01/24 13:30 08/01/24 13:33 Temperature 98.1 F Pulse Rate 64 56 L Pulse Rate [Pulse Oximeter] 106 H Respiratory Rate 16 16 Blood Pressure 123/54 L Blood Pressure [Ri ght Upper Arm] 123/54 L Pulse Oximetry 97 96 95 Oxygen Delivery Me thod Room Air 08/01/24 13:45 08/01/24 13:51 08/01/24 14:00 Temperature Pulse Rate 57 L 52 L 66 Pulse Rate [Pulse Oximeter] Respiratory Rate 12 Blood Pressure 98/36 L Blood Pressure [Ri ght Upper Arm] Pulse Oximetry 93 96 96 Oxygen Delivery Me thod 08/01/24 14:02 08/01/24 14:15 08/01/24 14:17 Temperature Pulse Rate 90 61 54 L Pulse Rate [Pulse Oximeter] Respiratory Rate 18 14 Blood Pressure 114/56 L 120/60 Blood Pressure [Ri ght Upper Arm] Pulse Oximetry 93 94 93 Oxygen Delivery Me thod 08/01/24 14:30 08/01/24 14:32 08/01/24 14:33 Temperature Pulse Rate 58 L 88 59 L Pulse Rate [Pulse Oximeter] Respiratory Rate 21 19 20 Blood Pressure 107/62 Blood Pressure [Ri ght Upper Arm] Pulse Oximetry 94 93 94 Oxygen Delivery Me thod 08/01/24 14:45 08/01/24 14:46 08/01/24 15:15 Temperature Pulse Rate 65 76 67 Pulse Rate [Pulse Oximeter] Respiratory Rate 12 Blood Pressure 108/61 Blood Pressure [Ri ght Upper Arm] Pulse Oximetry 94 94 94 Oxygen Delivery Me thod 08/01/24 15:17 08/01/24 15:18 08/01/24 15:30 Temperature Pulse Rate 86 64 74 Pulse Rate [Pulse Oximeter] Respiratory Rate 19 16 Blood Pressure 108/58 L Blood Pressure [Ri ght Upper Arm] Pulse Oximetry 94 95 94 Oxygen Delivery Me thod 08/01/24 15:32 08/01/24 15:33 08/01/24 15:45 Temperature Pulse Rate 77 83 74 Pulse Rate [Pulse Oximeter] Respiratory Rate 15 20 Blood Pressure 90/48 L Blood Pressure [Ri ght Upper Arm] Pulse Oximetry 95 92 93 Oxygen Delivery Me thod 08/01/24 15:47 08/01/24 16:00 08/01/24 16:01 Temperature Pulse Rate 82 81 61 Pulse Rate [Pulse Oximeter] Respiratory Rate 16 16 13 Blood Pressure 96/55 L 101/65 Blood Pressure [Ri ght Upper Arm] Pulse Oximetry 93 92 93 Oxygen Delivery Me thod 08/01/24 16:15 08/01/24 16:17 Temperature Pulse Rate 70 82 Pulse Rate [Pulse Oximeter] Respiratory Rate 19 19 Blood Pressure 96/61 Blood Pressure [Ri ght Upper Arm] Pulse Oximetry 93 92 Oxygen Delivery Me thod Documenting provider has reviewed patient's vital signs: yes Hospitalist - H&P: Result Labs Labs: Short CBC 08/01/24 Range/Units 13:30 WBC 9.24 (4.50-11.00) K/uL Hgb 8.1 L (13.5-17.5) gm/dL Hct 24.9 L (37.0-53.0) % Plt Count 184 (140-440) K/uL BMP 08/01/24 13:30 Sodium 130 L Potassium 3.9 Chloride 96 Carbon Dioxide 24 BUN 22 Creatinine 0.7 Glucose 123 H Calcium 9.7 Liver Function 08/01/24 Range/Units 13:30 Total Bilirubin 0.5 (0.1-1.5) mg/dL Direct Bilirubin 0.3 (0.0-0.5) mg/dL AST 42 H (12-35) U/L ALT 29 (4-50) U/L Alkaline Phosphatase 67 (40-150) U/L Albumin 4.0 (3.3-5.0) g/dL
[2024-08-01] MEDS: ACETAMINOPHEN 325 MG TABLET 650 MG PO (18:53)
[2024-08-01 19:33] LABS: Hemoglobin* 7.4 gm/dL (13.5-17.5)
[2024-08-01 19:50] LABS: Strep A DNA Probe* NOT DETECTED (Not Detectd)
--- NOTE | 2024-08-01 20:06 | PC.NURSE ---
End of shift [id number] - Pt arrived from ED at approximately 1630. Not able to stand during shift due to reported weakness. Pt tolerating RA and clear liquid diet. Reported headache and pain in throat. Given medication per MAR to improve pt comfort. Family at bedside, appears to be resting comfortably in bed with call light within reach.
[2024-08-01] MEDS: SODIUM CHLORIDE 0.9 % (FLUSH) 10 ML SYRINGE 5 ML IVF (22:16)
[2024-08-01] MEDS: MAGNESIUM OXIDE 400 MG TABLET PO (22:16)
--- NOTE | 2024-08-01 22:28 | PC.NURSE ---
Erin pt ex- called and informed of transfer.
--- NOTE | 2024-08-02 02:44 | PC.NURSE ---
Shift note ([id number]: Patient pleasant, alert and oriented. Reported having a sore throat; otherwise denied any pain. Candie from [facility] accepted patient for transfer. Blood transfusion started at 2223 before departure. Patient transferred to [facility] at 2240 via [facility].?
== END 2024-08-01 22:40 | disposition short-term general hospital (02) | DRG 378 ==
LOC: ED 16:01 → MEDSURG 16:23
PROVIDERS: Admitting Provider Family Medicine; Emergency Provider Emergency Medicine; PCP Family Medicine; Visit Provider Family Medicine
DX: K92.2 Gastrointestinal hemorrhage, unspecified (principal); E87.1 Hypo-osmolality and hyponatremia; K92.1 Melena; I95.89 Other hypotension; D50.0 Iron deficiency anemia secondary to blood loss (chronic); E83.42 Hypomagnesemia; R63.4 Abnormal weight loss; Z68.38 Body mass index [BMI] 38.0-38.9, adult; Z91.148 Patient's other noncompliance with medication regimen for other reason
CPT/HCPCS: 36415; 36430; 71045; 71260; 74174; 80048; 80076; 82270; 83605; 83735; 84484; 85018; 85025; 85610; 85730; 86140; 86850; 86900; 86901; 86922; 87631; 87651; 93005; 99284; 99285; A9270; J2470; J3475; J7030; P9016; Q9967

== ENCOUNTER 2024-08-01 22:30 | Outpatient (CLI) | payer MEDICARE, SELFPAY | END 2024-08-01 22:31 | disposition home or self-care (01) | LOC: AMB 08-04 09:26 | PROVIDERS: PCP Family Medicine; Visit Provider Family Medicine | DX: R53.1 Weakness (principal) ==